=== PATIENT | female | born 1955 | race Caucasian/White ===

== ENCOUNTER 2022-01-18 11:31 | Outpatient (RCR) | payer MEDICARE, BC, SELFPAY ==
--- NOTE | 2022-01-04 19:17 | ONC.NURNOTE ---
Authorization: User: Katelyn Harris Date: 08/09/21 11:19 Type: Eligibility Determination Note... Request received request for prior authorization of Infliximab [id number]. Patient has Medicare as primary insurance. Per CMS.gov LCD L30229 no prior authorization is required for Infliximab. Services are based on medical necessity and follow Medicare guidelines.
--- NOTE | 2022-01-10 12:39 | ONC.NURNOTE ---
Brittaney called to cancel today stating she was ill and getting Covid tested. She will call and reschedule when better.
--- NOTE | 2022-01-11 16:39 | ONC.NURNOTE ---
Pt called saying she has Covid. Symptoms began 01/09/22 and tested positive yesterday 01/10/22. She began Paxlovid and called Dr. Hussein to determine when she could come in for Remicade. He says when she is feeling better. Pt would like to schedule for 01/17/22; recommended pt call back early next week to review symptoms, as she is still having a fevers to 101/chills. Pt amenable to this plan.
[2022-01-18 11:46] VITALS: BP 125/79; PULSE 63; RESP 16; TEMP 35.8; O2SAT 97
[2022-01-18] MEDS: ACETAMINOPHEN 500 MG TABLET PO (11:55)
[2022-01-18] MEDS: 0.9 % SODIUM CHLORIDE 250 ml 250 ML 35 ML IV (11:56)
[2022-01-18] MEDS: diphenhydrAMINE 25 MG CAPSULE PO (11:57)
[2022-01-18] MEDS: METHYLPREDNISOLONE SOD SUCC 40 MG/ML IVP (12:16)
--- NOTE | 2022-01-22 14:42 | ONC.NURNOTE ---
s/p covid 19 infection, now reports postive home test, symptoms Ms. Roland received remicade infusion last week in the infusion center for Crohn's disease. Today she reports that she did a home covid test due to having a scratchy throat. The home test came back positive. Previous tests this weekend were negative. She was diagnosed with active covid 19 infection on 01/10/22 and completed a course of paclovid. Ms. Roland was recommended to follow up with her PCP regarding this information to ensure she is receiving appropriate care, considering that she is in an immunocompromised state with her remicaid infusions. She is agreeable to this plan.
== END 2022-01-20 23:59 | disposition home or self-care (01) ==
LOC: CCIC 11:31
PROVIDERS: PCP Internal Medicine; Visit Provider Internal Medicine Gastroenterology
DX: K50.90 Crohn's disease, unspecified, without complications (principal)
CPT/HCPCS: 96413; 96415; A9270; J2920; J7050

== ENCOUNTER 2022-02-05 15:44 | Outpatient (CLI) | payer MEDICARE, BC, SELFPAY ==
--- OUTSIDE RECORDS SUMMARY | 2022-02-05 15:48 | XMS_ITS | Encounter Summary ---
:1955 Author Organization [facility] Address [address] [place] [address] Care Team Providers Name Role Phone Unavailable Primary Care Provider Unavailable Reason for Referral Outpatient (Routine) - Closed Specialty Diagnoses / Procedures Referred By Contact Refer red To Contact Diagnoses Psoriasis Marilu Majano M.D. [facility] Procedures DX Hand Bilateral 2 Views and Wrist Bilateral 2 Views [address] [place] [phone] Referral ID Status Reason Start Date Expiration Date Visits Requ ested Visits Authorized [id number] Closed 11/12/2021 11/12/2022 1 1 Reason for Visit Outpatient (Routine) - Closed Specialty Diagnoses / Procedures Referred By Contact Refer red To Contact Diagnoses Psoriasis Marilu Majano M.D. [facility] Procedures DX Hand Bilateral 2 Views and Wrist Bilateral 2 Views [address] [place] [phone] Referral ID Status Reason Start Date Expiration Date Visits Requ ested Visits Authorized [id number] Closed 11/12/2021 11/12/2022 1 1 Encounter Details Date Type Department Care Team Description 11/12/2021 Hospital Encounter Department of Radiology, Marilu Majano M.D. [facility], in [address] [place] [address] [address] [facility] [address] [place] [address] [phone] Social History Tobacco Use Types Packs/Day Years Used Date Smoking Tobacco: Former Alcohol Habits Answer Date Recorded How often do you have a drink containing alcohol? Monthly or less 01/09/2022 How many drinks containing alcohol do you have on a 1 or 2 01/09/2022 typical day when you are drinking? How often do you have six or more drinks on one Never 01/09/2022 occasion? Comment: Not asked Social Isolation Answer Date Recorded In a typical week, how many times do you Three times a week 01/09/2022 talk on the phone with family, friends, or neighbors? How often do you get together with friends Three times a wee k 01/09/2022 or relatives? How often do you attend zoroastrian or mandaeism Patient refused 01/09/2022 services? Do you belong to any clubs or organizations Yes 01/09/2022 such as zoroastrian groups, unions, fraternal or athletic groups, or school groups? How often do you attend meetings of the More than 4 times pe r year 01/09/2022 clubs or organizations you belong to? Are you now , , , 01/09/2022 , never or living with a partner? Physical Activity Answer Date Recorded On average, how many days per week do you engage in moderate to 4 days 01/09/2022 strenuous exercise (like walking fast, running, jogging, dancing, swimming, biking, or other activities that cause a light or heavy sweat)? On average, how many minutes do you engage in exercise at th is 60 min 01/09/2022 level? Stress Answer Date Recorded Do you feel stress - tense, restless, nervous, or To some ex tent 01/09/2022 anxious, or unable to sleep at night because your mind is troubled all the time - these days? Financial Resource Strain Answer Date Recorded How hard is it for you to pay for the very basics like Not h mercedes at all 01/09/2022 food, housing, medical care, and heating? Intimate Partner Violence Answer Date Recorded Within the last year, have you been afraid of your partner o r No 01/09/2022 ex-partner? Within the last year, have you been humiliated or emotionall y No 01/09/2022 abused in other ways by your partner or ex-partner? Within the last year, have you been kicked, hit, slapped, or No 01/09/2022 otherwise physically hurt by your partner or ex-partner? Within the last year, have you been raped or forced to have any No 01/09/2022 kind of sexual activity by your partner or ex-partner? Food Insecurity Answer Date Recorded Within the past 12 months, you worried that your food would Never true 01/09/2022 run out before you got money to buy more. Within the past 12 months, the food you bought just didn't N ever true 01/09/2022 last and you didn't have money to get more. Transportation Needs Answer Date Recorded In the past 12 months, has lack of transportation kept you f rom No 01/09/2022 medical appointments or from getting medications? In the past 12 months, has lack of transportation kept you f rom No 01/09/2022 meetings, work, or getting things needed for daily living? Housing Stability Answer Date Recorded In the last 12 months, was there a time when you were not ab le No 01/09/2022 to pay the mortgage or rent on time? In the last 12 months, how many places have you lived? 1 01/09/2022 In the last 12 months, was there a time when you did not hav e a No 01/09/[address] to [address] or slept in a senior living (including now)? Sex Assigned at Date Recorded Female 01/09/2022 4:35 PM CDT documented as of this encounter Medications at Time of Discharge Medication Sig Dispensed Refills Start Date End Date fluocinonide (LIDEX) Apply 1 application 60 g 3 2021 0.05 % topically 2 (two) ointmentIndications: times a week. Apply Psoriasis to affected areas on the weekend for maintenance treatment. triamcinolone (KENALOG) Apply 1 application 454 g 3 0.1 % creamIndications: topically 2 (two) Psoriasis times a day as needed (Rash). Apply to affected areas twice a day under wet wraps. calcipotriene (DOVONEX) Apply 1 application 129 g 3 11/27/2021 0.005 % topically 2 (two) ointmentIndications: times a week. Apply Psoriasis to the affected areas. documented as of this encounter Plan of Treatment Upcoming Encounters Date Type Specialty Care Team Description 02/08/2022 Office Visit Dermatology Marilu Majano M.D. [address] [place] [address] 02/11/2022 Clinical Communication Admitting/Central Scheduling 02/13/2022 Comprehensive Visit Gastroenterology and Rosendo Nguyen Hepatology Venkatesh Alexander [address] [place] [address] documented as of this encounter Procedures Procedure Name Priority Date/Time Associated Comments Diagnosis DX HAND BILATERAL RAD - Routine 11/12/2021 2:50 Psoriasis Result s for this 2 VIEWS AND WRIST (most inpatients PM CDT proced ure are in BILATERAL 2 VIEWS and all the result s outpatients) section. 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 Tiny ossific density along the ulnar aspect of the left 2nd DIP jake nt, likely degenerative. Narrative 11/12/2021 3:22 PM CDT EXAM: ??DX HAND BILATERAL 2 VIEWS AND WRIST BILATERAL 2 VIEWS Procedure Note Pietro Hung M.D. - 11/12/2021For matting of this note might be different from the original. EXAM: DX HAND BILATERAL 2 VIEWS AND WRIS T BILATERAL 2 VIEWS IMPRESSION: Mild scattered degenerative arthritis jennifer th hands and wrists. Tiny ossific density along the ulnar aspect of the left 2nd DIP jake nt, likely degenerative. Marilu Majano M.D. [facility] PROCE NAVIN documented in this encounter Visit Diagnoses Diagnosis Psoriasis documented in this encounter
--- OUTSIDE RECORDS SUMMARY | 2022-02-05 15:48 | XMS_ITS | Encounter Summary ---
:1955 Author Organization [facility] Address [address] [place] [address] Care Team Providers Name Role Phone Unavailable Primary Care Provider Unavailable Encounter Details Date Type Department Care Team Description 11/10/2008 Hospital Encounter HX [facility] INPT/OBSRV Kala Mast M.D. [address] [place], [place] [address] (Wo rk) Social History Tobacco Use Types Packs/Day Years Used Date Smoking Tobacco: Never Assessed Alcohol Habits Answer Date Recorded How often [...] or relatives? How often do you attend quaker or mandaeism Patient refused 01/09/2022 services? Do you belong to any clubs or organizations Yes 01/09/2022 such as quaker groups, unions, fraternal or athletic groups, or [...] PM CDT documented as of this encounter Plan of Treatment Upcoming Encounters Date Type Specialty Care Team Description 02/08/2022 Office Visit Dermatology Marilu Majano M.D. [address] [place] [address] 02/11/2022 Clinical Communication Admitting/Central Scheduling 02/13/2022 Comprehensive Visit Gastroenterology and Rosendo Nguyen Hepatology Venkatesh Alexander [address] [place] [address] documented as of this encounter Visit Diagnoses Not on filedocumented in this encounter
--- OUTSIDE RECORDS SUMMARY | 2022-02-05 15:48 | XMS_ITS | Encounter Summary ---
:1955 Author Organization [facility] Address [address] [place] [address] Care Team Providers Name Role Phone Unavailable Primary Care Provider Unavailable Encounter Details Date Type Department Care Team Description 11/19/2013 Hospital Encounter HX NO MAPPING Social History Tobacco Use Types Packs/Day Years [...] How often do you attend zoroastrian or yarsani Patient refused 01/09/2022 services? Do you belong [...] place to sleep or slept in a long-term (including now)? Sex Assigned at Date Recorded Female 01/09/2022 4:35 PM CDT documented as of this encounter Plan of Treatment Upcoming Encounters Date Type Specialty Care Team Description 02/08/2022 Office Visit Dermatology Marilu Majano M.D. [address] [place] [address] 02/11/2022 Clinical Communication Admitting/Central Scheduling 02/13/2022 Comprehensive Visit Gastroenterology and Rosendo Nguyen Hepatology Venkatesh Alexander [address] [place] [address] documented as of this encounter Visit Diagnoses Not on filedocumented in this encounter
--- OUTSIDE RECORDS SUMMARY | 2022-02-05 15:48 | XMS_ITS | Encounter Summary ---
:[address] [facility] Address [address] [place] [address] Care Team Providers Name Role Phone Unavailable Primary Care Provider Unavailable Encounter Details Date Type Department Care Team Description 01/12/2009 - Hospital Encounter HX RST BREAST Valeria Capellan M.D. 10/07/2009 [address] [place] [address] (Wo rk) Social History Tobacco Use Types [...] or relatives? How often do you attend episcopalian or anabaptism Patient refused 01/09/2022 services? Do you belong to any clubs or organizations Yes 01/09/2022 such as episcopalian groups, unions, fraternal or athletic groups, or [...] place to sleep or slept in a jail (including now)? Sex Assigned at Date Recorded Female 01/09/2022 4:35 PM CDT documented as of this encounter Plan of Treatment Upcoming Encounters Date Type Specialty Care Team Description 02/08/2022 Office Visit Dermatology Marilu Majano M.D. [address] [place] [address] 02/11/2022 Clinical Communication Admitting/Central Scheduling 02/13/2022 Comprehensive Visit Gastroenterology and Rosendo Nguyen Hepatjigna Alexander M.D. [address] [place] [address] documented as of this encounter Visit Diagnoses Not on filedocumented in this encounter
--- OUTSIDE RECORDS SUMMARY | 2022-02-05 15:48 | XMS_ITS | Encounter Summary ---
:1955 Author Organization [facility] Address [address] [place] [address] Care Team Providers Name Role Phone Unavailable Primary Care Provider Unavailable Encounter Details Date Type Department Care Team Description 04/20/2012 - 04/22/2012 Hospital Encounter HX RST KORTNEY THOMAS 9D Social History Tobacco Use Types Packs/Day Years [...] or relatives? How often do you attend lutheran or restorationist Patient refused 01/09/2022 services? Do you belong to any clubs or organizations Yes 01/09/2022 such as lutheran groups, unions, fraternal or athletic groups, or [...] place to sleep or slept in a snf (including now)? Sex Assigned at Date Recorded Female 01/09/2022 4:35 PM CDT documented as of this encounter Last Filed Vital Signs Vital Sign Reading Time Taken Comments Blood Pressure 149/83 04/22/2012 1:55 PM CDT Pulse 80 04/22/2012 1:55 PM CDT Temperature - - Respiratory Rate 16 04/22/2012 1:55 PM CDT Oxygen Saturation - - Inhaled Oxygen - - Concentration Weight 106 kg (232 lb 12.9 04/21/2012 5:00 AM Value fro m [employer]. oz) CDT Height 166 cm (5' 5.35) 04/20/2012 6:17 PM Value from [employer]. CDT Body Mass Index 38.32 04/20/2012 6:17 PM CDT documented in this encounter Plan of Treatment Upcoming Encounters Date Type Specialty Care Team Description 02/08/2022 Office Visit Dermatology Marilu Majano M.D. [address] [place] [address] 02/11/2022 Clinical Communication Admitting/Central Scheduling 02/13/2022 Comprehensive Visit Gastroenterology and Rosendo Nguyen Hepatjigna Alexander M.D. [address] [place] [address] documented as of this encounter Visit Diagnoses Not on filedocumented in this encounter
--- OUTSIDE RECORDS SUMMARY | 2022-02-05 15:48 | XMS_ITS | Encounter Summary ---
:1955 Author Organization [facility] Address [address] [place] [address] Care Team Providers Name Role Phone Unavailable Primary Care Provider Unavailable Encounter Details Date Type Department Care Team Description 02/16/2009 Hospital Encounter HX [facility] INPT/OBSRV Kala Mast M.D. [address] [place], [place] [address] (Wo rk) Social History [...] or relatives? How often do you attend congregation or episcopalian Patient refused 01/09/2022 services? Do you belong to any clubs or organizations Yes 01/09/2022 such as congregation groups, unions, fraternal or athletic groups, or [...] place to sleep or slept in a alf (including now)? Sex Assigned at Date Recorded Female 01/09/2022 4:35 PM CDT documented as of this encounter Plan of Treatment Upcoming Encounters Date Type Specialty Care Team Description 02/08/2022 Office Visit Dermatology Marilu Majano M.D. [address] [place] [address] 02/11/2022 Clinical Communication Admitting/Central Scheduling 02/13/2022 Comprehensive Visit Gastroenterology and Rosendo Nguyen Hepatology Venkatesh Alexander [address] [place] [address] documented as of this encounter Visit Diagnoses Not on filedocumented in this encounter
--- OUTSIDE RECORDS SUMMARY | 2022-02-05 15:48 | XMS_ITS | Encounter Summary ---
:1955 Author Organization [facility] Address [address] [place] [address] Care Team Providers Name Role Phone Unavailable Primary Care Provider Unavailable Encounter Details Date Type Department Care Team Description 04/17/2012 Hospital Encounter HX NO MAPPING Pedro Pablo Shepard Social History Tobacco Use Types Packs/Day Years [...] or relatives? How often do you attend cheondoism or yarsani Patient refused 01/09/2022 services? Do you belong to any clubs or organizations Yes 01/09/2022 such as cheondoism groups, unions, fraternal or athletic groups, or [...] Visit Dermatology Marilu Majano M.D. [address] [place] [address] 02/11/2022 Clinical Communication Admitting/Central Scheduling 02/13/2022 Comprehensive Visit Gastroenterology and Rosendo Nguyen Hepatology Venkatesh Alexander [address] [place] [address] documented as of this encounter Visit Diagnoses Not on filedocumented in this encounter
--- OUTSIDE RECORDS SUMMARY | 2022-02-05 15:48 | XMS_ITS | Encounter Summary ---
:1955 Author Organization [facility] Address [address] [place] [address] Care Team Providers Name Role Phone Unavailable Primary Care Provider Unavailable Reason for Referral Outpatient (Routine) - Closed Specialty Diagnoses / Procedures Referred By Contact Refer red To Contact Diagnoses Psoriasis Marilu Majano M.D. [facility] Procedures DX Foot Ankle Bilateral 3+ Views [address] [place] [phone] Referral ID Status Reason Start Date Expiration Date Visits Requ ested Visits Authorized [id number] Closed 11/12/2021 11/12/2022 1 1 Reason for Visit Outpatient (Routine) - Closed Specialty Diagnoses / Procedures Referred By Contact Refer red To Contact Diagnoses Psoriasis Marilu Majano M.D. [facility] Procedures DX Foot Ankle Bilateral 3+ Views [address] [place] [phone] Referral ID Status Reason Start Date Expiration Date Visits Requ ested Visits Authorized [id number] Closed 11/12/2021 11/12/2022 1 1 Encounter Details Date Type Department Care Team Description 11/12/2021 Hospital Encounter Department of Radiology, Marilu Majano M.D. [facility], in [address] [place] [address] [address] [facility] [address] [place] [address] [phone] Social History Tobacco Use Types Packs/Day Years [...] or relatives? How often do you attend samaritan or shinto Patient refused 01/09/2022 services? Do you belong to any clubs or organizations Yes 01/09/2022 such as samaritan groups, unions, fraternal or athletic groups, or [...] place to sleep or slept in a fpc (including now)? Sex Assigned at Date Recorded [...] Visit Dermatology Marilu Majano M.D. [address] [place] [address] 02/11/2022 Clinical Communication Admitting/Central Scheduling 02/13/2022 Comprehensive Visit Gastroenterology and Rosendo Nguyen Hepatology Venkatesh Alexander [address] [place] [address] documented as of this encounter Procedures Procedure Name Priority Date/Time Associated Comments Diagnosis DX FOOT ANKLE RAD - Routine 11/12/2021 2:49 Psoriasis Results fo r this BILATERAL 3+ (most inpatients PM CDT procedure a re in VIEWS and all the results outpatients) section. documented in this encounter Results DX Foot Ankle Bilateral 3+ Views (11/12/2021 2:49 PM CDT) Anatomical Region Laterality Modality Lower Extremity, Foot, Ankle, Musculoskeletal RST LOS, Bilat eral Digital Radiography Musculoskeletal ARZ LOS, Muskuloskeletal FLA LOS Specimen (Source) Anatomical Collection Method Collection Time Re ceived Time Location / / Volume Laterality 11/12/2021 3:20 PM CDT Impressions 11/12/2021 3:21 PM CDT Ankle mortises are intact. Mild scattered degenerative changes in both feet. Tiny bilateral accessory navicular bones. The feet and ankles are otherwise negative. Narrative 11/12/2021 3:21 PM CDT EXAM: ??DX FOOT ANKLE BILATERAL 3+ VIEWS Procedure Note Edgar Vela M.D. - 11/12/2021Forma tting of this note might be different from the original. EXAM: DX FOOT ANKLE BILATERAL 3+ VIEWS IMPRESSION: Ankle mortises are intact. Mild scattere d degenerative changes in both feet. Tiny bilateral accessory navicular bones. The feet and ankles are otherwise negative. Marilu Majano M.D. [facility] DI[facility]NO[facility] TONA HOLDEN documented in this encounter Visit Diagnoses Diagnosis Psoriasis documented in this encounter
--- OUTSIDE RECORDS SUMMARY | 2022-02-05 15:48 | XMS_ITS | Encounter Summary ---
:1955 Author Organization [facility] Address [address] [place] [address] Care Team Providers Name Role Phone Unavailable Primary Care Provider Unavailable Reason for Visit Reason Comments Pre-visit Intake Encounter Details Date Type Department Care Team Description 01/14/2022 Clinical Communication Visit Review in Pr e-visit Intake [place], [place] [address] [place], [place] [phone] Social History Tobacco Use Types Packs/Day Years [...] or relatives? How often do you attend islam or baptism Patient refused 01/09/2022 services? Do you belong to any clubs or organizations Yes 01/09/2022 such as islam groups, unions, fraternal or athletic groups, or [...] or slept in a alf (including now)? Education Answer Date Recorded What is the highest level of school Bachelor's degree (e.g., BA, AB, 01/09/2022 you have completed or the highest BS) degree you have received? Sex Assigned at Date Recorded Female 01/09/2022 4:35 PM CDT documented as of this encounter Plan of Treatment Upcoming Encounters Date Type Specialty Care Team Description 02/08/2022 Office Visit Dermatology Marilu Majano M.D. [address] [place] [address] 02/11/2022 Clinical Communication Admitting/Central Scheduling 02/13/2022 Comprehensive Visit Gastroenterology and Rosendo Nguyne Hepatjigna Alexander M.D. [address] [place] [address] documented as of this encounter Visit Diagnoses Not on filedocumented in this encounter
--- OUTSIDE RECORDS SUMMARY | 2022-02-05 15:48 | XMS_ITS | Encounter Summary ---
:1955 Author Organization [facility] Address [address] [place] [address] Care Team Providers Name Role Phone Unavailable Primary Care Provider Unavailable Encounter Details Date Type Department Care Team Description 12/02/2008 Hospital Encounter HX [facility] INPT/OBSRV Kala Mast M.D. [address] [place], [place] [address] (Wo rk) Social History [...] or relatives? How often do you attend hinduism or sikh Patient refused 01/09/2022 services? Do you belong to any clubs or organizations Yes 01/09/2022 such as hinduism groups, unions, fraternal or athletic groups, or [...] place to sleep or slept in a group home (including now)? Sex Assigned at Date Recorded Female 01/09/2022 4:35 PM CDT documented as of this encounter Plan of Treatment Upcoming Encounters Date Type Specialty Care Team Description 02/08/2022 Office Visit Dermatology Marilu Majano M.D. [address] [place] [address] 02/11/2022 Clinical Communication Admitting/Central Scheduling 02/13/2022 Comprehensive Visit Gastroenterology and Rosendo Nguyen Hepatology Venkatesh Alexander [address] [place] [address] documented as of this encounter Visit Diagnoses Not on filedocumented in this encounter
--- OUTSIDE RECORDS SUMMARY | 2022-02-05 15:48 | XMS_ITS | Encounter Summary ---
:1955 Author Organization [facility] Address [address] [place] [address] Care Team Providers Name Role Phone Unavailable Primary Care Provider Unavailable Encounter Details Date Type Department Care Team Description 03/02/2015 Historical Ophthalmology RST OPH Hood Chand M.D., Ph.D. [address] [place], [place] [phone] (Wo rk) Social History Tobacco Use Types [...] or relatives? How often do you attend sikh or judaism Patient refused 01/09/2022 services? Do you belong to any clubs or organizations Yes 01/09/2022 such as sikh groups, unions, fraternal or athletic groups, or [...] place to sleep or slept in a prison (including now)? Sex Assigned at Date Recorded Female 01/09/2022 4:35 PM CDT documented as of this encounter Progress Notes Cayetano Chand M.D., Ph.D. - 03/02/2015 7:27 AM CDT Eye General CHIEF COMPLAINT Blurred vision HISTORY OF PRESENT ILLNESS Blurred vision, things run together; both eyes; x 6 months; constantly; symptoms have made it difficult to read, watch TV and work at the computer. Pain; both eyes (right > left); x 1 month; episodically with each episode lasting approximately a couple of weeks. 59yo female referred by Dr. Mead for blurred vision and visual field defect. She has a background history of a microvascular decompression of her left trigeminal nerve due to left trigeminal neuralgia on April 20, 2012, by Dr. Stanton. She also had a previous hypoglossal stimulator inserted for trigeminal neuralgia. Since August 2014, she reports blurred vision and burning of the eyes that comes and goes. Her eyes feel tired. This is worsened by reading and computer work. also some pain behind the eyes. On February 01, 2015, she saw her three knife trimmer, Dr. Liu for evaluation of this. She was found to havea binasal visual field defect on routine eye screening and therefore referred to Neurology for further evaluation. Repeat MRI on 02/13/15 was unremarkable. Note that her sister had a history of either multiple sclerosis or lupus and also has breast cancer.She when she was 59. Mrs. Roland has been on Humira in the past and has been on infliximab since 2007. PAST MEDICAL/SURGICAL HISTORY 1. Crohn's disease diagnosed 2006; treated with Humira, Pentasa, Entocort 6-MP, and infliximab. 2. Psoriasis. 3. Obstructive sleep apnea; currently on CPAP. 4. Microvascular decompression for left trigeminal neuralgia on April 20, 2012. 5. Previous hypoglossal stimulator insertion and subsequent explantation. 6. Vitamin D deficiency. 7. Hypertension. 8. B12 deficiency. 9. Depression. IMPRESSION / REPORT / PLAN #1 questionable binasal visual field defect by report She was initially referred for a binasal visual field defect found by her local eye provider on routine screening. Unfortunately I do not have these to review. The good part is that a binasal visual field defect is not caused by a neurologic problem. It is possible that the prior visual field test was unreliable and that her mesa are full. On amsler, there was nasal loss in the right eye, normal in the left. I couldn't pick this up with confrontation visual mesa and no RAPD was noted by my tech. We will want to explore this further with a visual field test. I will also get an OCT of the nerve and retina because if there was truly a binasal defect, it would be either a retina or nerve problem. #2 dry eye and meibominan gland dysfunction This is responsible for the intermittent blurred vision and pain while reading. Recommend artificial tears PRN Addendum: 24-2 Robbins visual field: full OU Cirrus OCT: normal RNFL and GCL I suspect the prior binasal field defects were due to poor reliability and being a first time test taker. Visual mesa were completely full today. 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 [address] [place] [phone] 02/11/2022 Clinical Communication Admitting/Central Scheduling 02/13/2022 Comprehensive Visit Gastroenterology and Rosendo Nguyen Hepatjigna Alexander M.D. [address] [place] [phone] documented as of this encounter Visit Diagnoses Not on filedocumented in this encounter
--- OUTSIDE RECORDS SUMMARY | 2022-02-05 15:48 | XMS_ITS | Encounter Summary ---
:1955 Author Organization [facility] Address [address] [place] [address] Care Team Providers Name Role Phone Unavailable Primary Care Provider Unavailable Encounter Details Date Type Department Care Team Description 12/22/2008 - Hospital Encounter HX RST INFUSION Von Vasquez 10/07/2009 THERAPY G, R.N. Social History Tobacco Use Types Packs/Day Years [...] or relatives? How often do you attend uatsdin or cheondoism Patient refused 01/09/2022 services? Do you belong to any clubs or organizations Yes 01/09/2022 such as uatsdin groups, unions, fraternal or athletic groups, or [...] minutes do you engage in exercise at is 60 min 01/09/2022 level? Stress Answer [...] place to sleep or slept in a retirement (including now)? Sex Assigned at Date Recorded Female 01/09/2022 4:35 PM CDT documented as of this encounter Plan of Treatment Upcoming Encounters Date Type Specialty Care Team Description 02/08/2022 Office Visit Dermatology Marilu Majano M.D. [address] [place] [address] 02/11/2022 Clinical Communication Admitting/Central Scheduling 02/13/2022 Comprehensive Visit Gastroenterology and Rosendo Nguyen Hepatology Venkatesh Alexander [address] [place] [phone] documented as of this encounter Visit Diagnoses Not on filedocumented in this encounter
--- OUTSIDE RECORDS SUMMARY | 2022-02-05 15:48 | XMS_ITS | Encounter Summary ---
:1955 Author Organization [facility] Address [address] [place] [address] Care Team Providers Name Role Phone Unavailable Primary Care Provider Unavailable Encounter Details Date Type Department Care Team Description 11/26/2021 Orders Only Department of Dermatology in [place], [place] MElvisDElvis [address] [facility] [address] [place] [address] [place], [place] [phone] (Wo rk) Social History Tobacco Use Types [...] or relatives? How often do you attend moravian or latter day Patient refused 01/09/2022 services? Do you belong to any clubs or organizations Yes 01/09/2022 such as moravian groups, unions, fraternal or athletic groups, or [...] Visit Dermatology Marilu Majano M.D. [address] [place] [address] 02/11/2022 Clinical Communication Admitting/Central Scheduling 02/13/2022 Comprehensive Visit Gastroenterology and Rosendo Nguyen Hepatology Venkatesh Alexander [address] [place] [address] documented as of this encounter Visit Diagnoses Not on filedocumented in this encounter
--- OUTSIDE RECORDS SUMMARY | 2022-02-05 15:48 | XMS_ITS | Encounter Summary ---
:1955 Author Organization [facility] Address [address] [place] [address] Care Team Providers Name Role Phone Unavailable Primary Care Provider Unavailable Encounter Details Date Type Department Care Team Description 12/19/2008 - 12/26/2008 Hospital Encounter HX NO MAPPING Social History [...] or relatives? How often do you attend yarsani or episcopalian Patient refused 01/09/2022 services? Do you belong to any clubs or organizations Yes 01/09/2022 such as yarsani groups, unions, fraternal or athletic groups, or [...] place to sleep or slept in a detention (including now)? Sex Assigned at Date Recorded Female 01/09/2022 4:35 PM CDT documented as of this encounter Plan of Treatment Upcoming Encounters Date Type Specialty Care Team Description 02/08/2022 Office Visit Dermatology Marilu Majano M.D. [address] [place] [address] 02/11/2022 Clinical Communication Admitting/Central Scheduling 02/13/2022 Comprehensive Visit Gastroenterology and Rosendo Nguyen Hepatology Venkatesh Alexander [address] [place] [address] documented as of this encounter Visit Diagnoses Not on filedocumented in this encounter
--- OUTSIDE RECORDS SUMMARY | 2022-02-05 15:48 | XMS_ITS | Encounter Summary ---
:1955 Author Organization [facility] Address [address] [place] [address] Care Team Providers Name Role Phone Unavailable Primary Care Provider Unavailable Encounter Details Date Type Department Care Team Description 04/27/2009 Hospital Encounter HX [facility] INPT/OBSRV Irene Mahoney M.D. [address] [place] [address] (Wo rk) Social History Tobacco Use Types [...] or relatives? How often do you attend buddhist or anglican Patient refused 01/09/2022 services? Do you belong to any clubs or organizations Yes 01/09/2022 such as buddhist groups, unions, fraternal or athletic groups, or [...] place to sleep or slept in a usp (including now)? Sex Assigned at Date Recorded Female 01/09/2022 4:35 PM CDT documented as of this encounter Plan of Treatment Upcoming Encounters Date Type Specialty Care Team Description 02/08/2022 Office Visit Dermatology Marilu Majano M.D. [address] [place] [phone] 02/11/2022 Clinical Communication Admitting/Central Scheduling 02/13/2022 Comprehensive Visit Gastroenterology and Rosendo Nguyen Hepatjigna Alexander M.D. [address] [place] [address] documented as of this encounter Visit Diagnoses Not on filedocumented in this encounter
--- OUTSIDE RECORDS SUMMARY | 2022-02-05 15:48 | XMS_ITS | Encounter Summary ---
:1955 Author Organization [facility] Address [address] [place] [address] Care Team Providers Name Role Phone Unavailable Primary Care Provider Unavailable Reason for Visit Reason Comments Rx Prior Authorization DANNA DENIED - CALCIPOTRIENE 0. 005% OINTMENT Encounter Details Date Type Department Care Team Description 11/26/2021 Clinical Pharmacy Prior Car Henao Rx Prior Communication Auth [id number] Authorization (DANNA DENIED - CALCIPOTRIENE 0 .005% OINTMENT) Social History Tobacco Use Types Packs/Day Years [...] or relatives? How often do you attend orthodoxy or bahai Patient refused 01/09/2022 services? Do you belong to any clubs or organizations Yes 01/09/2022 such as orthodoxy groups, unions, fraternal or athletic groups, or [...] place to sleep or slept in a fdc (including now)? Sex Assigned at Date Recorded Female 01/09/2022 4:35 PM CDT documented as of this encounter Miscellaneous Notes Telephone Encounter - Car Henao - 11/26/2021 4:12 PM CDT Images from the original note were not included. The patient's health insurer has denied prior authorization for CALCIPOTRIENE 0.005% OINTMENT. A quick view of the denial reason is in this communication message. To view the denial letter: 1. Go to Snapshot 2. Go to the purple Medications box 3. Click on the blue Prior Authorizations link 4. Under Denied, click on the blue medication link to open and view the attachment. As the prescriber your options are: ??? Appeal the decision to the insurer directly (see denial letter for how to appeal). ??? Write a new Rx for an alternative medication therapy. ??? Release the Rx to the pharmacy so the patient can pay out of pocket if they desire. To Release Rx: Open this encounter, go to Meds & Orders, click on the medication, and click the blue ???Release Rx?? button. PLEASE NOTE: If the ???Release Rx?? button is not visible, the Rx has already been released to the pharmacy. If you have questions, please reply via QuickNote to Meagan MENDOZA. Thank you, The OPPA Team documented in this encounter Plan of Treatment Upcoming Encounters Date Type Specialty Care Team Description 02/08/2022 Office Visit Dermatology Marilu Majano M.D. [address] [place] [address] 02/11/2022 Clinical Communication Admitting/Central Scheduling 02/13/2022 Comprehensive Visit Gastroenterology and Rosendo Nguyen Hepatology Venkatesh Alexander [address] [place] [phone] documented as of this encounter Visit Diagnoses Not on filedocumented in this encounter
--- OUTSIDE RECORDS SUMMARY | 2022-02-05 15:48 | XMS_ITS | Encounter Summary ---
:1955 Author Organization [facility] Address [address] [place] [address] Care Team Providers Name Role Phone Unavailable Primary Care Provider Unavailable Reason for Referral Outpatient (Routine) - Closed Specialty Diagnoses / Procedures Referred By Contact Refer red To Contact Dermatology Diagnoses Psoriasis Hansa Doty M.D. [facility] [address] [place] [address] Referral ID Status Reason Start Date Expiration Date Visits Requ ested Visits Authorized [id number] Closed 11/07/2021 11/07/2022 1 1 Encounter Details Date Type Department Care Team Description 11/07/2021 [facility] Hansa Doty Psoriasis (Primary AND CLINICS Venkatesh Pena Dx) 1999 [facility] [address] [place] [address] [phone] Social History Tobacco Use Types Packs/Day Years [...] How often do you attend buddhist or moravian Patient refused 01/09/2022 services? Do you belong [...] Visit Dermatology Marilu Majano M.D. [address] [place] [address] 02/11/2022 Clinical Communication Admitting/Central Scheduling 02/13/2022 Comprehensive Visit Gastroenterology and Rosendo Nguyen Hepatology Venkatesh Alexander [address] [place] [address] Scheduled Referrals Name Type Priority Associated Order Schedule Diagnoses Dermatology Referral Outpatient Referral Routine Psoriasis Expected: 11/07/2021 (Approximate), Expires: 02/07/2023 documented as of this encounter Visit Diagnoses Diagnosis Psoriasis - Primary documented in this encounter
--- OUTSIDE RECORDS SUMMARY | 2022-02-05 15:48 | XMS_ITS | Encounter Summary ---
:1955 Author Organization [facility] Address [address] [place] [address] Care Team Providers Name Role Phone Unavailable Primary Care Provider Unavailable Encounter Details Date Type Department Care Team Description 03/14/2009 Hospital Encounter HX [facility] INPT/OBSRV Kala Mast M.D. [address] [place] [address] (Wo rk) Social History [...] or relatives? How often do you attend restoration or church Patient refused 01/09/2022 services? Do you belong to any clubs or organizations Yes 01/09/2022 such as restoration groups, unions, fraternal or athletic groups, or [...] Visit Dermatology Marilu Majano M.D. [address] [place] [address] 02/11/2022 Clinical Communication Admitting/Central Scheduling 02/13/2022 Comprehensive Visit Gastroenterology and Rosendo Nguyen Hepatology Venkatesh Alexander [address] [place] [address] documented as of this encounter Visit Diagnoses Not on filedocumented in this encounter
--- OUTSIDE RECORDS SUMMARY | 2022-02-05 15:48 | XMS_ITS | Clinical Summary ---
:1955 Author Organization [facility] Address [address] [place] [address] Care Team Providers Name Role Phone Unavailable Primary Care Provider Unavailable Source Comments Patient records contain information from all sites at [facility]. For routine questions regarding patient records, call [phone] during business hours, M-F 8:00 AM - 5:00 PM Central Time. Record requests for emergency care only can be directed to [phone] at any time.[facility] Medications Medication Sig Dispensed Refills Start Date End Date Status triamcinolone Apply 1 application 454 g 3 11/12/2021 Active (KENALOG) 0.1 % topically 2 (two) creamIndications: times a day as Psoriasis needed (Rash). Apply to affected areas twice a day under wet wraps. fluocinonide (LIDEX) Apply 1 application 60 g 3 2 Active 0.05 % topically 2 (two) ointmentIndications: times a week. Apply Psoriasis to affected areas on the weekend for maintenance treatment. calcipotriene Apply 1 application 120 g 3 11/27/2021 Active (DOVONEX) 0.005 % topically 2 (two) ointmentIndications: times a day. Apply Psoriasis Vulgaris, to the affected Psoriasis Guttate areas. Active Problems Problem Noted Date Crohn's Disease 02/29/2016 Encounters Date Type Specialty Care Team Description 01/14/2022 Clinical Admitting/Central Pre-visit Intake Communication Scheduling 11/27/2021 Orders Only Dermatology Marilu Majano, Psoriasis Vul garis (Primary Dx); Benjamin.Jocelyne Psoriasis Octavio te; Psoriasis 11/26/2021 Clinical Pharmacy Car Henao Rx Prior Communication Authorization ([place] DENIED - CALCIPOTRIENE 0 .005% OINTMENT) 11/26/2021 Orders Only Pharmacy Car Henao 11/26/2021 Orders Only Dermatology Janice Gonzalez M.D. 11/16/2021 Orders Only Pharmacy Yadi Rowe 11/14/2021 Orders Only Pharmacy Melinda Ramírez 11/12/2021 Hospital Encounter Radiology Marilu Majano Psorias is Venkatesh 11/12/2021 Hospital Encounter Radiology Marilu Majano Psorias is MRanjan 11/12/2021 Comprehensive Visit Dermatology Marilu Majano Psoria sis (Primary Dx); M.DElvis Dermatitis Psor iasiform; Dermatitis Aste atotic Xerotic; Pain In Joint 11/12/2021 Ancillary Procedure 11/07/2021 Community Orders Soren, Psoriasis ( Primary Hansa Pena, Dx) Venkatesh from Last 3 Months Immunizations Name Administration Dates Next Due Influenza Split 03/23/2014, 03/23/2012, 04/01/2007 Tdap 01/22/2012 Social History Tobacco Use Types Packs/Day Years [...] or relatives? How often do you attend evangelical or jain Patient refused 01/09/2022 services? Do you belong to any clubs or organizations Yes 01/09/2022 such as evangelical groups, unions, fraternal or athletic groups, or [...] place to sleep or slept in a skilled nursing (including now)? Education Answer Date Recorded What is the highest level of school Bachelor's degree (e.g., BA, AB, 01/09/2022 you have completed or the highest BS) degree you have received? Sex Assigned at Date Recorded Female 01/09/2022 4:35 PM CDT Last Filed Vital Signs Vital Sign Reading Time Taken Comments Blood Pressure 131/69 02/29/2016 9:18 AM CDT Pulse 72 02/29/2016 9:18 AM CDT Temperature - - Respiratory Rate 19 02/13/2015 9:34 AM Vital sig n result CDT from Clinical No diane. Oxygen Saturation - - Inhaled Oxygen - - Concentration Weight 100 kg (220 lb 7.4 02/29/2016 9:18 AM oz) CDT Height 166 cm (5' 5.35) 02/29/2016 9:18 AM CDT Body Mass Index 36.29 02/29/2016 9:18 AM CDT Plan of Treatment Upcoming Encounters Date Type Specialty Care Team Description 02/08/2022 Office Visit Dermatology Marilu Majano M.D. [address] [place] [phone] 02/11/2022 Clinical Communication Admitting/Central Scheduling 02/13/2022 Comprehensive Visit Gastroenterology and Rosendo Nguyen Hepatology Venkatesh Alexander [address] [place] [phone] Health Maintenance Due Date Last Done Comments Bone Density Scan 1955 (Osteoporosis Screen) CT Colonography 1955 Cologuard 1955 Hepatitis C Screening 1955 Zoster Vaccines (1 of 2) 04/20/2015 02/23/2015 Mammogram 03/23/2016 03/23/2015 (Performed elsewhere), 03/04/2014, 01/14/2013, Additional history exists Colonoscopy 11/19/2018 11/19/2013, 11/19/2013, 01/21/2005 (Performed elsewhere) Colorectal Cancer 11/19/2018 Surveillance Creatinine Level 08/26/2020 08/27/2019, 09/03/2018, 11/19/2012, Additional history exists Potassium Level 08/26/2020 08/27/2019, 09/03/2018, 04/17/2012 Sodium Level 08/26/2020 08/27/2019, 09/03/2018, 04/17/2012 Depression Screening 06/23/2021 (Annual PHQ-2) Fall Risk Screen (Annual) 06/23/2021 COVID-19 Vaccine (5 - 11/20/2021 07/23/2021, 07/23/2021, Booster for Moderna series) 02/19/2021, Addition al history exists DTaP,Tdap,and Td Vaccines 01/21/2022 01/22/2012, 12/17/2011 , (3 - Td or Tdap) 12/06/2004 Influenza Vaccine (#1) 2022 04/11/2021, 04/11/2021, 04/04/2020, Additional history exists Fasting Glucose for 08/26/2022 08/27/2019, 09/03/2018 Diabetes Screening Pneumococcal vaccine (65+ Completed 12/21/2020, 04/04/2020 years) HPV Vaccines Aged Out No longer eligib le based on patient 's age to complete this topic Medical Devices Implanted Type Area Binder Folder Operator Device Shelf Model / Identifier Expiration Date Ser ial / Lot [place]-Mesh [id number].6mm(Gold) - Muñiz [id number] Str yker Implanted: Qty: 1 on 04/20/2012 pins/screws/r ods Description: Device Binder Folder Operator - Stryk er Florina.. Device Status Text - [id number]. Hammond Richard Fuzzy 1 X 1 - Muñiz 1667 Mesh or Patch DeRoyal In [employer] Implanted: Qty: 1 on 04/20/2012 Description: Device Binder Folder Operator - DeRoy al. Device Status Text - [id number]. [facility] Data - [id number]. Procedures Procedure Name Priority Date/Time Associated Comments Diagnosis DX HAND BILATERAL 2 RAD - Routine 11/12/2021 2:50 Psoriasis Resu lts for this VIEWS AND WRIST (most inpatients PM CDT procedur e are in BILATERAL 2 VIEWS and all the result s outpatients) section. DX FOOT ANKLE RAD - Routine 11/12/2021 2:49 Psoriasis Results fo r this BILATERAL 3+ VIEWS (most inpatients PM CDT proce dure are in and all the results outpatients) section. DERMATOLOGY IMAGE Routine 11/12/2021 12:00 Result s for this EXAM AM CDT procedure are i n the results section. from Last 3 Months Results DX Hand Bilateral 2 Views and [...] jake nt, likely degenerative. Marilu Majano M.D. IMTong DIAGNOSTIC IMAGING PROCE DURES DX Foot Ankle Bilateral 3+ Views (11/12/2021 [...] negative. Marilu Majano M.D. IMG DIAGNOSTIC IMAGING PROCE NAVIN Entire Body-Dermatology Image Exam (11/12/2021 12:00 AM CDT) Specimen (Source) Anatomical Location Collection Method / Collectio n Time Received Time / Laterality Volume Narrative IIMS - 11/12/2021 4:14 PM CDT This order has been created and auto-finalized to support the import of images acquired without order. The clini moose documentation to support these images can be found on the encounter luanne t produced images. Provider Not In System IMG NON RAD IMAGING PROCEDUR ES Performing Organization Address City/State/ZIP Code Phon e Number IIMS IIMS NA from Last 3 Months Insurance Payer Benefit Plan Subscriber ID Effective Phone Address Typ e / Group Dates MEDICARE MEDICARE A [id number] 2019-Prese [address] [place] [address] [facility] [id number] 2019-Prese [phone] [address] [place] [address] [id number] [place] [address] Guarantor Name Account Type Relation to Date of Phone Billing Address Patient Brittaney Roland Personal/Famil Self 1955 [phone] [address] [facility] Lucia Anguiano RN y (Home) TANESHA Bender [phone] (Work)
--- OUTSIDE RECORDS SUMMARY | 2022-02-05 15:48 | XMS_ITS | Encounter Summary ---
:1955 Author Organization [facility] Address [address] [place] [address] Care Team Providers Name Role Phone Unavailable Primary Care Provider Unavailable Encounter Details Date Type Department Care Team Description 11/02/2008 Hospital Encounter HX [facility] INPT/OBSRV Kala Mast M.D. [address] [place], [place] [address] (Wo rk) Social History [...] or relatives? How often do you attend orthodox or bahai Patient refused 01/09/2022 services? Do you belong to any clubs or organizations Yes 01/09/2022 such as orthodox groups, unions, fraternal or athletic groups, or [...] place to sleep or slept in a fci (including now)? Sex Assigned at Date Recorded Female 01/09/2022 4:35 PM CDT documented as of this encounter Plan of Treatment Upcoming Encounters Date Type Specialty Care Team Description 02/08/2022 Office Visit Dermatology Marilu Majano M.D. [address] [place] [address] 02/11/2022 Clinical Communication Admitting/Central Scheduling 02/13/2022 Comprehensive Visit Gastroenterology and Rosendo Nguyen Hepatology Venkatesh Alexander [address] [place] [address] documented as of this encounter Visit Diagnoses Not on filedocumented in this encounter
--- OUTSIDE RECORDS SUMMARY | 2022-02-05 15:48 | XMS_ITS | Encounter Summary ---
:1955 Author Organization [facility] Address [address] [place] [address] Care Team Providers Name Role Phone Unavailable Primary Care Provider Unavailable Encounter Details Date Type Department Care Team Description 02/02/2009 Hospital Encounter HX [facility] INPT/OBSRV Kala Mast M.D. [address] [place], [place] [address] (Wo rk) Social History [...] or relatives? How often do you attend oriental orthodox or nondenominational Patient refused 01/09/2022 services? Do you belong to any clubs or organizations Yes 01/09/2022 such as oriental orthodox groups, unions, fraternal or athletic groups, [...] Visit Dermatology Marilu Majano M.D. [address] [place] [address] 02/11/2022 Clinical Communication Admitting/Central Scheduling 02/13/2022 Comprehensive Visit Gastroenterology and Rosendo Nguyen Hepatology Venkatesh Alexander [address] [place] [address] documented as of this encounter Visit Diagnoses Not on filedocumented in this encounter
--- OUTSIDE RECORDS SUMMARY | 2022-02-05 15:48 | XMS_ITS | Encounter Summary ---
:1955 Author Organization [facility] Address [address] [place] [address] Care Team Providers Name Role Phone Unavailable Primary Care Provider Unavailable Encounter Details Date Type Department Care Team Description 09/30/2008 - Hospital Encounter HX [facility]ST INFUSION Rose Barraza, 10/07/2008 THERAPY C.N.P[facility] Social History Tobacco Use Types Packs/Day Years [...] or relatives? How often do you attend pentecostalism or tenriism Patient refused 01/09/2022 services? Do you belong to any clubs or organizations Yes 01/09/2022 such as pentecostalism groups, unions, fraternal or athletic groups, or [...] place to sleep or slept in a [facility] (including now)? Sex Assigned at Date Recorded Female 01/09/2022 4:35 PM CDT documented as of this encounter Plan of Treatment Upcoming Encounters Date Type Specialty Care Team Description 02/08/2022 Office Visit Dermatology Marilu Majano M.D. [address] [place] [address] 02/11/2022 Clinical Communication Admitting/Central Scheduling 02/13/2022 Comprehensive Visit Gastroenterology and Rosendo Nguyen Hepatology Venkatesh Alexander [address] [place] [phone] documented as of this encounter Visit Diagnoses Not on filedocumented in this encounter
--- OUTSIDE RECORDS SUMMARY | 2022-02-05 15:48 | XMS_ITS | Encounter Summary ---
:1955 Author Organization [facility] Address [address] [place] [address] Care Team Providers Name Role Phone Unavailable Primary Care Provider Unavailable Encounter Details Date Type Department Care Team Description 04/14/2009 Hospital Encounter HX [facility] Rich Doyle, INPT/OBSRV M.DElvis [address] [address] (Wo rk) Social History Tobacco Use Types [...] or relatives? How often do you attend baptist or worship Patient refused 01/09/2022 services? Do you belong to any clubs or organizations Yes 01/09/2022 such as baptist groups, unions, fraternal or athletic groups, or [...] place to sleep or slept in a [facility] (including now)? Sex Assigned at Date Recorded Female 01/09/2022 4:35 PM CDT documented as of this encounter Plan of Treatment Upcoming Encounters Date Type Specialty Care Team Description 02/08/2022 Office Visit Dermatology Marilu Majano M.D. [address] [place] [address] 02/11/2022 Clinical Communication Admitting/Central Scheduling 02/13/2022 Comprehensive Visit Gastroenterology and Rosendo Ngueyn Hepatology Venkatesh Alexander [address] [place] [address] documented as of this encounter Visit Diagnoses Not on filedocumented in this encounter
--- OUTSIDE RECORDS SUMMARY | 2022-02-05 15:48 | XMS_ITS | Encounter Summary ---
:1955 Author Organization [facility] Address [address] [place] [address] Care Team Providers Name Role Phone Unavailable Primary Care Provider Unavailable Encounter Details Date Type Department Care Team Description 03/09/2009 - Hospital Encounter HX RST BREAST Valeria Capellan M.D. 10/07/2009 [address] [place] [address] (Wo rk) Social History Tobacco Use Types [...] or relatives? How often do you attend denominational or jehovah's witness Patient refused 01/09/2022 services? Do you belong to any clubs or organizations Yes 01/09/2022 such as denominational groups, unions, fraternal or athletic groups, or [...] Office Visit Dermatology Marilu Majano M.D. [address] [place] [address] 02/11/2022 Clinical Communication Admitting/Central Scheduling 02/13/2022 Comprehensive Visit Gastroenterology and Rosendo Nguyen Hepatjigna Alexander M.D. [address] [place] [phone] documented as of this encounter Procedures Procedure Name Priority Date/Time Associated Comments Diagnosis CT UROGRAM WITH IV Routine 07/13/2009 11:33 Resul ts for this CONTRAST WITH 3D AM MULTIPLE PRESSURE RIVETER OPERATOR procedure a re in DEPENDENT WORKSTATION the re sults section. BI ULTRASOUND EXAM Routine 03/09/2009 1:24 PM Res ults for this CDT procedure are i n the results section. documented in this encounter Results CT Urogram with IV Contrast with 3D Dependent Workstation (07/13/2009 11:33 AM MULTIPLE PRESSURE RIVETER OPERATOR) Anatomical Region Laterality Modality Abdomen, Pelvis Computed Tomography Specimen (Source) Anatomical Collection Method Collection Time Re ceived Time Location / / Volume Laterality 07/13/2009 11:33 AM MULTIPLE PRESSURE RIVETER OPERATOR Narrative 07/13/2009 11:54 AM MULTIPLE PRESSURE RIVETER OPERATOR 13-Jul-2009 11:33:00 ??Exam: CT Urogram w 3D Indications: urogram- hydronephrosis,;co nt per rad ORIGINAL REPORT - 13-Jul-2009 11:54:00 CT urogram (CT abdomen and pelvis withou t and with IV contrast including 3D reconstructions performed on an independent workstation) and KUB done in separate ExU suite. Comparison to CT enterography 12/22/2008. Tiny nonobstructing calyceal stone in th e right upper pole is unchanged. The kidneys, ureters, and bladder are otherwise normal. ??Modreate post void residual. Stable wall thickening in the approximat monique 30 cm segment of distal ileum including terminal ileum, consistent with patient's known Crohn's disease. Fatty change of the duodenum is also stable. Right denise ng base nodular opacity seen previously has resolved. Bilateral tubal ligation. Diffuse fatty infiltration in the liver. Splenic granuoloma. Small splenule. Mild degenerative changes of the spine. Ind: 810.560 ?? Dia.519 ?? Electronically signed by: ?? [place] [id number] 13-Jul-2009 11:54 ?Jose Kumar MD [phone] 13-Jul-2009 11:54 Procedure Note Jose Kumar M.D. - 09/21/2017Forma tting of this note might be different from the original. 13-Jul-2009 11:33:00 Exam: CT Urogram w 3D Indications: urogram- hydronephrosis,;co nt per rad ORIGINAL REPORT - 13-Jul-2009 11:54:00 CT urogram (CT abdomen and pelvis withou t and with IV contrast including 3D reconstructions performed on an independent workstation) and KUB done in separate ExU suite. Comparison to CT enterography 12/22/2008. Tiny nonobstructing calyceal stone in th e right upper pole is unchanged. The kidneys, ureters, and bladder are otherwise normal. Modreate post void residual. Stable wall thickening in the approximat monique 30 cm segment of distal ileum including terminal ileum, consistent with patient's known Crohn's disease. Fatty change of the duodenum is also stable. Right lung base nodular opacity seen previously has resolved. Bi lateral tubal ligation. Diffuse fatty infiltration in the liver. Splenic granuoloma. Small splenule. Mild degenerative changes of the spine. Ind: 810.560 Dia.519 Electronically signed by: [place] [id number] 13-Jul-2009 11:54 Jose Kumar MD [id number] 13-Jul-2009 11:54 Gali Porter M.D. IMTong CT PROCEDURES BI Ultrasound Exam (03/09/2009 1:24 PM CDT) Anatomical Region Laterality Modality Breast N/A Ultrasound Specimen (Source) Anatomical Collection Method Collection Time Re ceived Time Location / / Volume Laterality 03/09/2009 1:24 PM CDT Narrative 03/09/2009 2:13 PM CDT 09-Mar-2009 13:24:00 ??Exam: L MG /Ultrasound Exam Indications: ?? ORIGINAL REPORT - 09-Mar-2009 14:13:00 Left diagnostic ultrasound. ?? FINDINGS: Ultrasound of the left breast at approximately 11 to 3 o'clock demonstrates normal breast parenchyma. No focal sonographic abnormality to suggest cancer to correspond with the patient's palpable abnormality. ?? RECOMMENDATION: Follow-up mammogram of b oth breasts in August 2009 to re- establish annual mammographic surveillance. ?? Assessment: Benign. ??P5.1,U11,L2D Electronically signed by: ?? Jocelyne Sanchez ?? 09-Mar-2009 14:13 Procedure Note Bradley Sanchez M.D. - 09/21/2017For matting of this note might be different from the original. 09-Mar-2009 13:24:00 Exam: L MG /Ultraso und Exam Indications: ORIGINAL REPORT - 09-Mar-2009 14:13:00 Left diagnostic ultrasound. FINDINGS: Ultrasound of the left breast at approximately 11 to 3 o'clock demonstrates normal breast parenchyma. No focal sonographic abnormality to suggest cancer to correspond with the patient's palpable abnormality. RECOMMENDATION: Follow-up mammogram of b oth breasts in August 2009 to re- establish annual mammographic surveillance. Assessment: Benign. P5.1,U11,L2D Electronically signed by: Jocelyne Sanchez MD 09-Mar-2009 14:13 Roger VEGAS BI PROCEDURES documented in this encounter Visit Diagnoses Not on filedocumented in this encounter
--- OUTSIDE RECORDS SUMMARY | 2022-02-05 15:48 | XMS_ITS | Encounter Summary ---
:1955 Author Organization [facility] Address [address] [place] [address] Care Team Providers Name Role Phone Unavailable Primary Care Provider Unavailable Encounter Details Date Type Department Care Team Description 11/14/2021 Orders Only Pharmacy Prior Auth Melinda Lauren [phone] Social History Tobacco Use Types Packs/Day Years [...] How often do you attend orthodox or orthodoxy Patient refused 01/09/2022 services? Do you belong [...] Visit Dermatology Marilu Majano M.D. [address] [place] [phone] 02/11/2022 Clinical Communication Admitting/Central Scheduling 02/13/2022 Comprehensive Visit Gastroenterology and Rosendo Nguyen Hepatology Venkatesh Alexander [address] [place] [phone] documented as of this encounter Visit Diagnoses Not on filedocumented in this encounter
--- OUTSIDE RECORDS SUMMARY | 2022-02-05 15:48 | XMS_ITS | Encounter Summary ---
:1955 Author Organization [facility] Address [address] [place] [address] Care Team Providers Name Role Phone Unavailable Primary Care Provider Unavailable Reason for Referral Outpatient (Routine) - Authorized Specialty Diagnoses / Procedures Referred By Contact Refer red To Contact Dermatology Diagnoses Psoriasis Marilu Majano M.D. [facility] [address] [place] [address] Referral ID Status Reason Start Date Expiration Date Visits V isits Requested Authorized [id number] Authorized 11/12/2021 11/12/2022 1 1 Scheduling Instructions Psoriasis follow up utpatient (Routine) - Closed Specialty Diagnoses / Procedures Referred By Contact Refer red To Contact Diagnoses Psoriasis Marilu Majano M.D. [facility] Procedures DX Hand Bilateral 2 Views and Wrist Bilateral 2 Views [address] [place], [place] [address] Referral ID Status Reason Start Date Expiration Date Visits Requ ested Visits Authorized [id number] Closed 11/12/2021 11/12/2022 1 1 utpatient (Routine) - Closed Specialty Diagnoses / Procedures Referred By Contact Refer red To Contact Diagnoses Psoriasis Marilu Majano M.D. [facility] Procedures DX Foot Ankle Bilateral 3+ Views [address] [place], [place] [address] Referral ID Status Reason Start Date Expiration Date Visits Requ ested Visits Authorized [id number] Closed 11/12/2021 11/12/2022 1 1 Reason for Visit Outpatient (Routine) - Closed Specialty Diagnoses / Procedures Referred By Contact Refer red To Contact Dermatology Diagnoses Psoriasis Hansa Doty M.D. [address] [address] Referral ID Status Reason Start Date Expiration Date Visits Requ ested Visits Authorized [id number] Closed 11/07/2021 11/07/2022 1 1 Encounter Details Date Type Department Care Team Description 11/12/2021 Comprehensive Visit Department of Marilu Majano Psori asis (Primary Dx); Dermatology in Venkatesh Dermatitis Psoriasiform; [place], [place] [address] [facility] Dermatitis Asteatotic Xerotic; [address] [place], [place] [phone] Social History Tobacco Use Types Packs/Day Years [...] or relatives? How often do you attend jainism or advent Patient refused 01/09/2022 services? Do you belong to any clubs or organizations Yes 01/09/2022 such as jainism groups, unions, fraternal or athletic groups, or [...] PM CDT documented as of this encounter Patient Instructions Patient InstructionsJanice Gonzalez M.D. - 11/12/2021 1:50 PM CDT Topical treatment -For 2 weeks, use triamcinolone 0.1% cream twice a day with wet wraps. Moisturize after removing wetwraps with Vanicream. -After 2 weeks, use wet wraps over triamcinolone 0.1% once a day in the morning and use Lidex ointment once a day in the evening for 1 week. -Then, use Lidex ointment only twice a day for another week -After completing above, for maintenance treatment, apply Dovonex twice a day Friday thru Friday, and on weekends use either triamcinolone or Lidex once a day -Moisturize twice a day with Vanicream -Repeat the wet wraps with steroids during flares -Follow up in 3 months We recommend discussing with GI whether Stelara may be helpful, but defer to GI on this decision. Please obtain your Xrays today. documented in this encounter Consult Notes Janice Gonzalez M.D. - 11/12/2021 1:00 PM CDT Correspondence to Hansa Underwood M.D. [address] [place] [phone] CHIEF COMPLAINT / REASON FOR VISIT Psoriasis HISTORY OF PRESENT ILLNESS Ms. Brittaney Anguiano TRACI Roland is a 66 y.o. female who presents today for the above. She was last seen in Dermatology at [facility] in 2012. She reports she has had a skin biopsy at outside institution, butnot sure what it showed. She has not had biopsies at [facility]. She also has a history of Crohn's diseasefor which she has been on Remicade since 2007. She is currently using it every 5 weeks. She finds the Remicade has been helpful for her skin as well but she is now having a flare for the last 4 months.She reports she has not had Strep infection, but has had UTI. She has not started new medications like metoprolol or other beta-blockers. She has been under some increased stress due to COVID. For her skin, she is currently using Vanicream and Vaniply daily. She also has been triamcinolone and hydrocortisone creams off and on, but not on a schedule. In the past, she has also had Dovonex and also beenon phototherapy prior to starting Remicade. In the past, for her Crohn's, she was on prednisone, Entocort, 6-MP, Enbrel, Humira, and now on Remicade since 2007. She also endorses joint pain in her wrists and ankles. She also reports she has joint pain in the knuckles and ankles. The ankles may be related to her activity with playing pickleball but she finds that there is also morning stiffness. She has not seen rheumatology yet. Family history: Her mother and sister also have psoriasis and inflammatory bladder disease. PHYSICAL EXAM General: Awake, alert, in no acute distress, with appropriate affect. Skin: Examination of the scalp, face, neck, chest, abdomen, back, bilateral upper extremities, bilateral lower extremities and buttocks, sparing the genitalia, performed and revealed: - Garcia type II - Over the posterior thighs, hips, trunk, and anterior feet, there is circular, erythematous, silver-scaly plaques; over the remainder of the bilateral extremities, there is diffuse river-bed pattern erythematous, scaly patches. There is no involvement of the scalp, face, gluteal cleft, or skin folds.Over the breast, there are small 5 mm circular, erythematous, scaly plaques. 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 She is on Remicade due to her history of Crohn's disease, which previously has well- controlled her skin as well. However, she is currently having a flare without a known trigger. There is also superimposed asteatotic dermatitis as well. We discussed initiating a regular topical treatment plan with moisturization, and we alsodiscussed doing light therapy locally as well if refractory. She will be meeting with GI at [facility] after several years in December 2021, and we recommend discussing with them whether Stelara may be helpful, but defer to GI on this. Plan -For 2 weeks, use triamcinolone 0.1% cream twice a day with wet wraps. Moisturize after removing wetwraps with Vanicream. -After 2 weeks, use wet wraps over triamcinolone 0.1% once a day in the morning and use Lidex ointment once a day in the evening for 1 week. -Then, use Lidex ointment only twice a day for another week -After completing above, for maintenance treatment, apply Dovonex ointment twice a day Friday thru Friday, and on weekends use either triamcinolone or Lidex once a day -Moisturize twice a day with Vanicream with all above regimens -Repeat the wet wraps with steroids during flares -Wet wraps were discussed with the patient with Dr. Majano and nursing team -Follow up in 3 months #3 Polyarticular small joint pain (ankles/feet and hands/wrists) We will plan for X-ray and if signs of inflammatory arthritis, will refer to rheumatology. Supervised by: Dr. Melecio Gonzalez MD PGY2 Dermatology Associated attestation - Marilu Majano M.D. - 11/13/2021 9:57 AM CDT I saw and evaluated the patient, participating in the hickman portions of the service. I reviewed resident's note, and I agree with the findings and plan. The patient is having a flare of her psoriasis with plaques on the feet, thighs, and a few guttate papules on the abdomen. She also has evidence of asteatotic dermatitis affecting the lower legs as well. Since she has not tried topicals to control this flare, we recommended optimizing topicals as a first line treatment, as outlined below. We also discussed light therapy as an adjunct, but she preferred to stick with just topicals to start with, which I think is reasonable. We can add light therapy if needed. Ideally, topicals will be helpful in calming this down and she can continue Remicade. If topicals and/or light therapy are not enough to control the flare, we could consider switching from Remicade to another biologic such as Stelara approved for both Crohn's and psoriasis, though I would want to get our GI doctors' opinions on this prior to making the switch, since Remicade has overall worked for her and continues to control her GI disease well. Therefore, we will start topicals for now and f/u after she sees GI in December to determine next steps. documented in this encounter Plan of Treatment Upcoming Encounters Date Type Specialty Care Team Description 02/08/2022 Office Visit Dermatology Marilu Majano M.D. [address] [place] [address] 02/11/2022 Clinical Communication Admitting/Central Scheduling 02/13/2022 Comprehensive Visit Gastroenterology and Rosendo Nguyen Hepatology Venkatesh Alexander [address] [place] [address] Scheduled Referrals Name Type Priority Associated Order Schedule Diagnoses Dermatology office Outpatient Referral Routine Psoriasis Ex pected: visit (clinic) 12/13/2021 (Approximate), Expires: 02/12/2023 documented as of this encounter Results DX Hand Bilateral 2 [...] 2nd DIP jake nt, likely degenerative. Marilu VEGAS DIAGNOSTIC IMAGING PROCE DURES DX Foot Ankle [...] feet and ankles are otherwise negative. Marilu [facility] DIAGNOSTIC IMAGING PROCE DURTHADDEUS documented in this encounter Visit Diagnoses Diagnosis Psoriasis - Primary Dermatitis Psoriasiform Dermatitis Asteatotic Xerotic Pain In Joint Psoriasis Psoriasis documented in this encounter
--- OUTSIDE RECORDS SUMMARY | 2022-02-05 15:48 | XMS_ITS | Encounter Summary ---
:1955 Author Organization [facility] Address [address] [place] [address] Care Team Providers Name Role Phone Unavailable Primary Care Provider Unavailable Encounter Details Date Type Department Care Team Description 03/31/[address] [facility] INPT/OBSRV Kala Mast M.D. [address] [place], [place] [address] (Wo rk) Social History [...] or relatives? How often do you attend jewish or restoration Patient refused 01/09/2022 services? Do you belong to any clubs or organizations Yes 01/09/2022 such as jewish groups, unions, fraternal or athletic groups, or [...] place to sleep or slept in a [facility] (including now)? Sex Assigned at Date Recorded Female 01/09/2022 4:35 PM CDT documented as of this encounter Plan of Treatment Upcoming Encounters Date Type Specialty Care Team Description 02/08/2022 Office Visit Dermatology Marilu Majano M.D. [address] [place] [address] 02/11/2022 Clinical Communication Admitting/Central Scheduling 02/13/2022 Comprehensive Visit Gastroenterology and Rosendo Nguyen Hepatology Venkatesh Alexander [address] [place] [address] documented as of this encounter Visit Diagnoses Not on filedocumented in this encounter
--- OUTSIDE RECORDS SUMMARY | 2022-02-05 15:48 | XMS_ITS | Encounter Summary ---
:1955 Author Organization [facility] Address [address] [place] [address] Care Team Providers Name Role Phone Unavailable Primary Care Provider Unavailable Encounter Details Date Type Department Care Team Description 11/27/2021 Orders Only Department of Melecio, Marilu Ellis, Psoriasis Vu lgaris (Primary Dx); Dermatology in M.D. Psoriasis Guttate; [place], [place] [address] [facility] Psoriasis [address] [place] [phone] [phone] Social History Tobacco Use Types Packs/Day Years [...] How often do you attend orthodoxy or jew Patient refused 01/09/2022 services? Do you belong [...] to sleep or slept in a senior care (including now)? Sex Assigned at Date Recorded Female 01/09/2022 4:35 PM CDT documented as of this encounter Plan of Treatment Upcoming Encounters Date Type Specialty Care Team Description 02/08/2022 Office Visit Dermatology Marilu Majano M.D. [address] [place] [address] 02/11/2022 Clinical Communication Admitting/Central Scheduling 02/13/2022 Comprehensive Visit Gastroenterology and Rosendo Nguyen Hepatology [facility]kates[facility] [address] [place] [address] documented as of this encounter Visit Diagnoses Diagnosis Psoriasis Vulgaris - Primary Psoriasis Guttate Psoriasis documented in this encounter
--- OUTSIDE RECORDS SUMMARY | 2022-02-05 15:48 | XMS_ITS | Encounter Summary ---
:1955 Author Organization [facility] Address [address] [place] [address] Care Team Providers Name Role Phone Unavailable Primary Care Provider Unavailable Encounter Details Date Type Department Care Team Description 11/12/2021 Ancillary Procedure Department of Dermatology Social History Tobacco Use Types Packs/Day Years [...] or relatives? How often do you attend judaism or adventist Patient refused 01/09/2022 services? Do you belong to any clubs or organizations Yes 01/09/2022 such as judaism groups, unions, fraternal or athletic groups, or [...] place to sleep or slept in a halfway (including now)? Sex Assigned at Date Recorded Female 01/09/2022 4:35 PM CDT documented as of this encounter Plan of Treatment Upcoming Encounters Date Type Specialty Care Team Description 02/08/2022 Office Visit Dermatology Marilu Majano M.D. [address] [place] [address] 02/11/2022 Clinical Communication Admitting/Central Scheduling 02/13/2022 Comprehensive Visit Gastroenterology and Rosendo Nguyen Hepatology Venkatesh Alexander [address] [place] [address] documented as of this encounter Procedures Procedure Name Priority Date/Time Associated Comments Diagnosis DERMATOLOGY IMAGE Routine 11/12/2021 12:00 Result s for this EXAM AM CDT procedure are i n the results section. documented in this encounter Results Entire Body-Dermatology Image Exam (11/12/2021 12:00 AM [...] Code Phon e Number IIMS IIMS NA documented in this encounter Visit Diagnoses Not on filedocumented in this encounter
--- OUTSIDE RECORDS SUMMARY | 2022-02-05 15:48 | XMS_ITS | Encounter Summary ---
:1955 Author Organization [facility] Address [address] [place] [address] Care Team Providers Name Role Phone Unavailable Primary Care Provider Unavailable Encounter Details Date Type Department Care Team Description 01/06/2009 Hospital Encounter HX NO MAPPING Social History [...] or relatives? How often do you attend taoism or congregation Patient refused 01/09/2022 services? Do you belong to any clubs or organizations Yes 01/09/2022 such as taoism groups, unions, fraternal or athletic groups, or [...] place to sleep or slept in a custodial (including now)? Sex Assigned at Date Recorded Female 01/09/2022 4:35 PM CDT documented as of this encounter Plan of Treatment Upcoming Encounters Date Type Specialty Care Team Description 02/08/2022 Office Visit Dermatology Marilu Majano M.D. [address] [place] [address] 02/11/2022 Clinical Communication Admitting/Central Scheduling 02/13/2022 Comprehensive Visit Gastroenterology and Rosendo Nguyen Hepatology Venkatesh Alexander [address] [place] [address] documented as of this encounter Visit Diagnoses Not on filedocumented in this encounter
--- OUTSIDE RECORDS SUMMARY | 2022-02-05 15:48 | XMS_ITS | Encounter Summary ---
:1955 Author Organization [facility] Address [address] [place] [address] Care Team Providers Name Role Phone Unavailable Primary Care Provider Unavailable Encounter Details Date Type Department Care Team Description 12/08/2008 Hospital Encounter [facility] INPT/OBSRV Kala Mast M.D. [address] [place], [place] [address] (Wo rk) Social History [...] or relatives? How often do you attend yazdanism or restorationism Patient refused 01/09/2022 services? Do you belong to any clubs or organizations Yes 01/09/2022 such as yazdanism groups, unions, fraternal or athletic groups, or [...] place to sleep or slept in a nursing home (including now)? Sex Assigned at Date Recorded Female 01/09/2022 4:35 PM CDT documented as of this encounter Plan of Treatment Upcoming Encounters Date Type Specialty Care Team Description 02/08/2022 Office Visit Dermatology Marilu Majano M.D. [address] [place] [address] 02/11/2022 Clinical Communication Admitting/Central Scheduling 02/13/2022 Comprehensive Visit Gastroenterology and Rosendo Nguyen Hepatology Venkatesh Alexander [address] [place] [address] documented as of this encounter Visit Diagnoses Not on filedocumented in this encounter
--- OUTSIDE RECORDS SUMMARY | 2022-02-05 15:48 | XMS_ITS | Encounter Summary ---
:1955 Author Organization [facility] Address [address] [place] [address] Care Team Providers Name Role Phone Unavailable Primary Care Provider Unavailable Encounter Details Date Type Department Care Team Description 11/26/2021 Orders Only Pharmacy Prior Auth [facility] [phone] Social History Tobacco Use Types Packs/Day Years [...] or relatives? How often do you attend mandaen or holiness Patient refused 01/09/2022 services? Do you belong to any clubs or organizations Yes 01/09/2022 such as mandaen groups, unions, fraternal or athletic groups, or [...] Visit Dermatology Marilu Majano M.D. [address] [place] [address] 02/11/2022 Clinical Communication Admitting/Central Scheduling 02/13/2022 Comprehensive Visit Gastroenterology and Rosendo Nguyen Hepatology Venkatesh Alexander [address] [place] [address] documented as of this encounter Visit Diagnoses Not on filedocumented in this encounter
--- OUTSIDE RECORDS SUMMARY | 2022-02-05 15:48 | XMS_ITS | Encounter Summary ---
:1955 Author Organization [facility] Address [address] [place] [address] Care Team Providers Name Role Phone Unavailable Primary Care Provider Unavailable Encounter Details Date Type Department Care Team Description 08/24/2009 Telemedicine Department of Plastic and Reconstructive Surgery Social History Tobacco Use Types Packs/Day Years [...] How often do you attend sikh or yazdanism Patient refused 01/09/2022 services? Do you belong [...] Visit Dermatology Marilu Majano M.D. 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 documented in this encounter Results PLASTIC AND RECON SURGERY IMAGE EXAM (08/24/2009 4:35 AM MARKETING ROTATION ASSOCIATE) Specimen (Source) Anatomical Location Collection Method / Collectio n Time Received Time / Laterality Volume Narrative IIMS - 01/29/2017 4:20 AM CDT This order has been created and [...]
--- OUTSIDE RECORDS SUMMARY | 2022-02-05 15:48 | XMS_ITS | Encounter Summary ---
:1955 Author Organization [facility] Address [address] [place] [address] Care Team Providers Name Role Phone Unavailable Primary Care Provider Unavailable Encounter Details Date Type Department Care Team Description 11/16/2021 Orders Only Pharmacy Prior Auth Yadi Barbour [phone] Social History Tobacco Use Types Packs/Day Years [...] How often do you attend taoism or latter-day Patient refused 01/09/2022 services? Do you belong [...] Visit Dermatology Marilu Majano M.D. [address] [place] [phone] 02/11/2022 Clinical Communication Admitting/Central Scheduling 02/13/2022 Comprehensive Visit Gastroenterology and Rosendo Nguyen Hepatology Venkatesh Alexander [address] [place] [phone] documented as of this encounter Visit Diagnoses Not on filedocumented in this encounter
--- OUTSIDE RECORDS SUMMARY | 2022-02-05 15:49 | XMS_ITS | Encounter Summary ---
:1955 Author Organization [facility] Address [address] [place] [address] Care Team Providers Name Role Phone Unavailable Primary Care Provider Unavailable Encounter Details Date Type Department Care Team Description 09/03/2007 Hospital Encounter HX NO MAPPING Social History [...] or relatives? How often do you attend yazidism or scientology Patient refused 01/09/2022 services? Do you belong to any clubs or organizations Yes 01/09/2022 such as yazidism groups, unions, fraternal or athletic groups, or [...] place to sleep or slept in a half-way (including now)? Sex Assigned at Date Recorded Female 01/09/2022 4:35 PM CDT documented as of this encounter Plan of Treatment Upcoming Encounters Date Type Specialty Care Team Description 02/08/2022 Office Visit Dermatology Marilu Majano M.D. [address] [place] [address] 02/11/2022 Clinical Communication Admitting/Central Scheduling 02/13/2022 Comprehensive Visit Gastroenterology and Rosendo Nguyen Hepatology Venkatesh Alexander [address] [place] [address] documented as of this encounter Visit Diagnoses Not on filedocumented in this encounter
--- OUTSIDE RECORDS SUMMARY | 2022-02-05 15:49 | XMS_ITS | Encounter Summary ---
:1955 Author Organization [facility] Address [address] [place] [address] Care Team Providers Name Role Phone Unavailable Primary Care Provider Unavailable Encounter Details Date Type Department Care Team Description 04/29/2008 Hospital Encounter [facility] INPT/OBSRV Kala Mast M.D. [address] [place], [place] [address] (Wo rk) Social History [...] or relatives? How often do you attend worship or buddhist Patient refused 01/09/2022 services? Do you belong to any clubs or organizations Yes 01/09/2022 such as worship groups, unions, fraternal or athletic groups, or [...] place to sleep or slept in a correction (including now)? Sex Assigned at Date Recorded Female 01/09/2022 4:35 PM CDT documented as of this encounter Plan of Treatment Upcoming Encounters Date Type Specialty Care Team Description 02/08/2022 Office Visit Dermatology Marilu Majano M.D. [address] [place] [address] 02/11/2022 Clinical Communication Admitting/Central Scheduling 02/13/2022 Comprehensive Visit Gastroenterology and Rosendo Nguyen Hepatology Venkatesh Alexander [address] [place] [address] documented as of this encounter Visit Diagnoses Not on filedocumented in this encounter
--- OUTSIDE RECORDS SUMMARY | 2022-02-05 15:49 | XMS_ITS | Encounter Summary ---
:1955 Author Organization [facility] Address [address] [place] [address] Care Team Providers Name Role Phone Unavailable Primary Care Provider Unavailable Encounter Details Date Type Department Care Team Description 08/25/2008 Hospital Encounter [facility] INPT/OBSRV Kala Mast M.D. [address] [place], [place] [address] (Wo rk) Social History [...] How often do you attend mandaen or anabaptist Patient refused 01/09/2022 services? Do you belong [...] Majano M.D. [address] [place] [address] 02/11/2022 Clinical Communication Admitting/Central Scheduling 02/13/2022 Comprehensive Visit Gastroenterology and Rosendo Nguyen Hepatology Venkatesh Alexander [address] [place] [address] documented as of this encounter Visit Diagnoses Not on filedocumented in this encounter
--- OUTSIDE RECORDS SUMMARY | 2022-02-05 15:49 | XMS_ITS | Encounter Summary ---
:1955 Author Organization [facility] Address [address] [place] [address] Care Team Providers Name Role Phone Unavailable Primary Care Provider Unavailable Encounter Details Date Type Department Care Team Description 09/30/2008 - 10/07/2008 Hospital Encounter HX NO MAPPING Social History [...] or relatives? How often do you attend mormonism or sabianism Patient refused 01/09/2022 services? Do you belong to any clubs or organizations Yes 01/09/2022 such as mormonism groups, unions, fraternal or athletic groups, or [...] Visit Dermatology Marilu Majano M.D. [address] [place] [address] 02/11/2022 Clinical Communication Admitting/Central Scheduling 02/13/2022 Comprehensive Visit Gastroenterology and Rosendo Nguyen Hepatology Venkatesh Alexander [address] [place] [address] documented as of this encounter Visit Diagnoses Not on filedocumented in this encounter
--- OUTSIDE RECORDS SUMMARY | 2022-02-05 15:49 | XMS_ITS | Encounter Summary ---
:1955 Author Organization [facility] Address [address] [place] [address] Care Team Providers Name Role Phone Unavailable Primary Care Provider Unavailable Encounter Details Date Type Department Care Team Description 05/16/2008 Hospital Encounter [facility] INPT/OBSRV Irene Mahoney M.D. [address] [place] [address] (Wo rk) Social History Tobacco Use Types [...] or relatives? How often do you attend holiness or mandaen Patient refused 01/09/2022 services? Do you belong to any clubs or organizations Yes 01/09/2022 such as holiness groups, unions, fraternal or athletic groups, or [...] Office Visit Dermatology Marilu Majano M.D. [address] [place] [address] 02/11/2022 Clinical Communication Admitting/Central Scheduling 02/13/2022 Comprehensive Visit Gastroenterology and Rosendo Nguyen Hepatjigna Alexander M.D. [address] [place] [address] documented as of this encounter Visit Diagnoses Not on filedocumented in this encounter
--- OUTSIDE RECORDS SUMMARY | 2022-02-05 15:49 | XMS_ITS | Encounter Summary ---
:1955 Author Organization [facility] Address [address] [place] [address] Care Team Providers Name Role Phone Unavailable Primary Care Provider Unavailable Encounter Details Date Type Department Care Team Description 06/09/2008 Hospital Encounter [facility] INPT/OBSRV Kala Mast M.D. [address] [place], [place] [address] (Wo rk) Social History [...] How often do you attend zoroastrian or yazidi Patient refused 01/09/2022 services? Do you belong [...] Visit Dermatology Marilu Majano M.D. [address] [place] [address] 02/11/2022 Clinical Communication Admitting/Central Scheduling 02/13/2022 Comprehensive Visit Gastroenterology and Rosendo Nguyen Hepatology Venkatesh Alexander [address] [place] [address] documented as of this encounter Visit Diagnoses Not on filedocumented in this encounter
--- OUTSIDE RECORDS SUMMARY | 2022-02-05 15:49 | XMS_ITS | Encounter Summary ---
:1955 Author Organization [facility] Address [address] [place] [address] Care Team Providers Name Role Phone Unavailable Primary Care Provider Unavailable Encounter Details Date Type Department Care Team Description 05/16/2008 Hospital Encounter [facility]X [facility] INPT/OBSRV Kala Mast M.D. [address] [place], [place] [address] (Wo rk) Social History [...] or relatives? How often do you attend protestant or zoroastrian Patient refused 01/09/2022 services? Do you belong to any clubs or organizations Yes 01/09/2022 such as protestant groups, unions, fraternal or athletic groups, or [...] Visit Dermatology Marilu Majano M.D. [address] [place] [address] 02/11/2022 Clinical Communication Admitting/Central Scheduling 02/13/2022 Comprehensive Visit Gastroenterology and Rosendo Nguyen Hepatology Venkatesh Alexander [address] [place] [address] documented as of this encounter Visit Diagnoses Not on filedocumented in this encounter
--- OUTSIDE RECORDS SUMMARY | 2022-02-05 15:49 | XMS_ITS | Encounter Summary ---
:1955 Author Organization [facility] Address [address] [place] [address] Care Team Providers Name Role Phone Unavailable Primary Care Provider Unavailable Encounter Details Date Type Department Care Team Description 06/30/2008 Hospital Encounter [facility] INPT/OBSRV Kala Mast M.D. [address] [place], [place] [address] (Wo rk) Social History [...] or relatives? How often do you attend scientology or mu-ism Patient refused 01/09/2022 services? Do you belong to any clubs or organizations Yes 01/09/2022 such as scientology groups, unions, fraternal or athletic groups, or [...] for the very basics like Not h mercdees at all 01/09/2022 food, housing, medical care, [...] Visit Dermatology Marilu Majano M.D. [address] [place] [address] 02/11/2022 Clinical Communication Admitting/Central Scheduling 02/13/2022 Comprehensive Visit Gastroenterology and Rosendo Nguyen Hepatology Venkatesh Alexander [address] [place] [address] documented as of this encounter Visit Diagnoses Not on filedocumented in this encounter
--- OUTSIDE RECORDS SUMMARY | 2022-02-05 15:49 | XMS_ITS | Encounter Summary ---
:1955 Author Organization [facility] Address [address] [place] [address] Care Team Providers Name Role Phone Unavailable Primary Care Provider Unavailable Encounter Details Date Type Department Care Team Description 08/25/2008 Hospital Encounter [facility] INPT/OBSRV Kala Mast M.D. [address] [place], [place] [address] (Wo rk) Social History [...] or relatives? How often do you attend zoroastrianism or taoist Patient refused 01/09/2022 services? Do you belong to any clubs or organizations Yes 01/09/2022 such as zoroastrianism groups, unions, fraternal or athletic groups, or [...] place to sleep or slept in a intermediate (including now)? Sex Assigned at Date Recorded Female 01/09/2022 4:35 PM CDT documented as of this encounter Plan of Treatment Upcoming Encounters Date Type Specialty Care Team Description 02/08/2022 Office Visit Dermatology Marilu Majano M.D. [address] [place] [address] 02/11/2022 Clinical Communication Admitting/Central Scheduling 02/13/2022 Comprehensive Visit Gastroenterology and Rosendo Nguyen Hepatology Venkatesh Alexander [address] [place] [address] documented as of this encounter Visit Diagnoses Not on filedocumented in this encounter
--- OUTSIDE RECORDS SUMMARY | 2022-02-05 15:49 | XMS_ITS | Encounter Summary ---
:1955 Author Organization [facility] Address [address] [place] [address] Care Team Providers Name Role Phone Unavailable Primary Care Provider Unavailable Encounter Details Date Type Department Care Team Description 04/01/2008 Hospital Encounter [facility] INPT/OBSRV Kala Mast M.D. [address] [place], [place] [address] (Wo rk) Social History [...] or relatives? How often do you attend nondenominational or spiritism Patient refused 01/09/2022 services? Do you belong to any clubs or organizations Yes 01/09/2022 such as nondenominational groups, unions, fraternal or athletic groups, or [...] Visit Dermatology Marilu Majano M.D. [address] [place] [address] 02/11/2022 Clinical Communication Admitting/Central Scheduling 02/13/2022 Comprehensive Visit Gastroenterology and Rosendo Nguyen Hepatology Venkatesh Alexander [address] [place] [address] documented as of this encounter Visit Diagnoses Not on filedocumented in this encounter
--- OUTSIDE RECORDS SUMMARY | 2022-02-05 15:49 | XMS_ITS | Encounter Summary ---
:1955 Author Organization [facility] Address [address] [place] [address] Care Team Providers Name Role Phone Unavailable Primary Care Provider Unavailable Encounter Details Date Type Department Care Team Description 06/02/2008 Hospital Encounter [facility] INPT/OBSRV Kala Mast M.D. [address] [place], [place] [address] (Wo rk) Social History [...] How often do you attend evangelical or uatsdin Patient refused 01/09/2022 services? Do you belong [...] place to sleep or slept in a chcf (including now)? Sex Assigned at Date Recorded Female 01/09/2022 4:35 PM CDT documented as of this encounter Plan of Treatment Upcoming Encounters Date Type Specialty Care Team Description 02/08/2022 Office Visit Dermatology Marilu Majano M.D. [address] [place] [address] 02/11/2022 Clinical Communication Admitting/Central Scheduling 02/13/2022 Comprehensive Visit Gastroenterology and Rosendo Nguyen Hepatology Venkatesh Alexander [address] [place] [address] documented as of this encounter Visit Diagnoses Not on filedocumented in this encounter
--- OUTSIDE RECORDS SUMMARY | 2022-02-05 15:49 | XMS_ITS | Encounter Summary ---
:1955 Author Organization [facility] Address [address] [place] [address] Care Team Providers Name Role Phone Unavailable Primary Care Provider Unavailable Encounter Details Date Type Department Care Team Description 05/20/2008 Hospital Encounter [facility] INPT/OBSRV Kala Mast M.D. [address] [place], [place] [address] (Wo rk) Social History [...] or relatives? How often do you attend amish or temple Patient refused 01/09/2022 services? Do you belong to any clubs or organizations Yes 01/09/2022 such as amish groups, unions, fraternal or athletic groups, or [...] Visit Dermatology Marilu Majano M.D. [address] [place] [address] 02/11/2022 Clinical Communication Admitting/Central Scheduling 02/13/2022 Comprehensive Visit Gastroenterology and Rosedno Nguyen Hepatology Venkatesh Alexander [address] [place] [address] documented as of this encounter Visit Diagnoses Not on filedocumented in this encounter
--- OUTSIDE RECORDS SUMMARY | 2022-02-05 15:49 | XMS_ITS | Encounter Summary ---
:1955 Author Organization [facility] Address [address] [place] [address] Care Team Providers Name Role Phone Unavailable Primary Care Provider Unavailable Encounter Details Date Type Department Care Team Description 09/30/2008 Hospital Encounter HX NO MAPPING Alan Simeon Phar m.D., R.Ph. [address] [place], [place] [phone] (Wo rk) Social History Tobacco Use Types [...] How often do you attend zoroastrian or bahai Patient refused 01/09/2022 services? Do [...] Visit Dermatology Marilu Majano M.D. [address] [place] [address] 02/11/2022 Clinical Communication Admitting/Central Scheduling 02/13/2022 Comprehensive Visit Gastroenterology and Rosendo Nguyen Hepatology Venkatesh Alexander [address] [place] [address] documented as of this encounter Visit Diagnoses Not on filedocumented in this encounter
--- OUTSIDE RECORDS SUMMARY | 2022-02-05 15:49 | XMS_ITS | Encounter Summary ---
:1955 Author Organization [facility] Address [address] [place] [address] Care Team Providers Name Role Phone Unavailable Primary Care Provider Unavailable Encounter Details Date Type Department Care Team Description 07/13/2008 Hospital Encounter HX [facility] INPT/OBSRV Kala Mast M.D. [address] [place], [place] [address] (Wo rk) Social History [...] or relatives? How often do you attend caodaism or confucianist Patient refused 01/09/2022 services? Do you belong to any clubs or organizations Yes 01/09/2022 such as caodaism groups, unions, fraternal or athletic groups, or [...] Care Team Description 02/08/2022 Office Visit Dermatology Marliu Majano M.D. [address] [place] [address] 02/11/2022 Clinical Communication Admitting/Central Scheduling 02/13/2022 Comprehensive Visit Gastroenterology and Rosendo Nguyen Hepatology Venkatesh Alexander [address] [place] [address] documented as of this encounter Visit Diagnoses Not on filedocumented in this encounter
== END 2022-02-05 15:45 | disposition home or self-care (01) ==
PROVIDERS: PCP Internal Medicine; Visit Provider Obstetrics & Gynecology
DX: N39.46 Mixed incontinence (principal); N39.0 Urinary tract infection, site not specified; N95.0 Postmenopausal bleeding
CPT/HCPCS: 87086

== ENCOUNTER 2022-02-21 09:06 | Outpatient (CLI) | payer MEDICARE, BC, SELFPAY ==
--- NOTE | 2022-02-21 09:15 | CRLHL7_ITS ---
For Patients: As a result of the Century Cures Act, medical imaging exams and procedure reports are released immediately into your electronic medical record. You may view this report before your referring provider. If you have questions, please contact your health care provider. INDICATION: Postmenopausal bleeding pressure TECHNIQUE: Ultrasound pelvis transvaginal for better assessment or to better visualize the endometrium. Real-time sonographic images with color Doppler imaging of the ovaries were obtained. COMPARISON: None. FINDINGS: Uterus: 4.3 x 3.9 x 2.9 cm. Normal echotexture of the myometrium. Hypoechoic structure in the left mid posterior uterine body measuring 1.1 x 0.9 x 0.6 cm. Endometrium: Transvaginal imaging was performed to better evaluate the endometrium. Endometrium is heterogeneous and measures 6 mm. Difficult to visualize. Right ovary measures 1.9 x 0.9 x 0.7 cm and left ovary measures 2.0 x 1.0 x 2.1 cm. No ovarian or adnexal masses. Normal arterial and venous blood flow is demonstrated in both ovaries. Cul-de-sac: No significant free fluid. IMPRESSION: 1. Technically challenging exam. 2. Endometrium is heterogeneous and mildly thickened for age measuring 6 mm. 3. 11 mm hypodense region in the left mid uterine posterior body, nonspecific but most likely small fibroid. Dictated by Bradley Hackett MD @ 02/21/2022 10:40:18 AM (Electronically Signed)
--- OUTSIDE RECORDS SUMMARY | 2022-02-21 09:16 | XMS_ITS | Clinical Summary ---
:1955 Author Organization [employer] [facility] [email or web address] [facility] [place] [address] Care Team Providers Name Role Phone Hansa Doty MD Primary Care Provider Allergies Active Allergy Reactions Severity Noted Date Comments Codeine *Unknown 09/18/2016 Hydrochlorothiazide Rash 09/18/2016 Adalimumab Rash 09/18/2016 Medications Medication Sig Dispensed Refills Start Date End Date Status aspirin (ASPIRIN EC) Take 1 tablet by 0 09/18/2016 Active 81 mg enteric coated mouth once daily tabletIndications: with a meal. Crohn's disease of small intestine without complication (HC), Diarrhea, unspecified type, Periumbilical abdominal pain Phenol (CASTELLANI Apply topically to 0 09/18/2016 Active PAINT) 1.5 % affected area(s). liqdIndications: Crohn's disease of small intestine without complication (HC), Diarrhea, unspecified type, Periumbilical abdominal pain Prednicarbate Apply topically to 0 09/18/2016 Active (DERMATOP) 0.1 % affected area(s) 2 topical times daily. creamIndications: Crohn's disease of small intestine without complication (HC), Diarrhea, unspecified type, Periumbilical abdominal pain calcipotriene 0.005% Apply topically to 0 09/18/2016 Active (DOVONEX) 0.005 % affected area(s) 2 creamIndications: times daily. Crohn's disease of small intestine without complication (HC), Diarrhea, unspecified type, Periumbilical abdominal pain furosemide (LASIX) 20 Take 1 tablet by 0 09/18/2016 Active mg tabletIndications: mouth every Crohn's disease of morning. small intestine without complication (HC), Diarrhea, unspecified type, Periumbilical abdominal pain lisinopril (PRINIVIL; Take 1 tablet by 0 09/18/2016 Active ZESTRIL) 40 mg mouth once daily. tabletIndications: Crohn's disease of small intestine without complication (HC), Diarrhea, unspecified type, Periumbilical abdominal pain omega-3 acid ethyl Take 2 capsules by 0 09/18/2016 Active esters (LOVAZA) 1 mouth 2 times gram daily. capsuleIndications: Crohn's disease of small intestine without complication (HC), Diarrhea, unspecified type, Periumbilical abdominal pain melatonin 5 mg Take 1 capsule by 0 09/18/2016 Active capsuleIndications: mouth. Crohn's disease of small intestine without complication (HC), Diarrhea, unspecified type, Periumbilical abdominal pain omeprazole (PRILOSEC) Take 1 capsule by 0 09/18/2016 Active 40 mg Delayed-Release mouth once daily. capsuleIndications: Crohn's disease of small intestine without complication (HC), Diarrhea, unspecified type, Periumbilical abdominal pain Prednicarbate Apply topically to 0 09/18/2016 Active (DERMATOP) 0.1 % affected area(s) 2 topical times daily. creamIndications: Crohn's disease of small intestine without complication (HC), Diarrhea, unspecified type, Periumbilical abdominal pain inFLIXimab (REMICADE) Inject intravenous 0 7 Active 100 mg one time for 1 injectionIndications: dose. Crohn's disease of small intestine without complication (HC), Diarrhea, unspecified type, Periumbilical abdominal pain simvastatin (ZOCOR) Take 1 tablet by 0 09/18/2016 Active 40 mg mouth at bedtime. tabletIndications: Crohn's disease of small intestine without complication (HC), Diarrhea, unspecified type, Periumbilical abdominal pain triamcinolone Apply topically to 1 Tube 0 09/18/2016 Active (ARISTOCORT; KENALOG) affected area(s) 3 0.1 % times daily. creamIndications: Crohn's disease of small intestine without complication (HC), Diarrhea, unspecified type, Periumbilical abdominal pain acetaminophen Take 1 tablet by 0 09/18/2016 Active (TYLENOL EXTRA mouth every 6 hours STRGTH) 500 mg if needed. Max tabletIndications: acetaminophen dose: Crohn's disease of 4000mg in 24 hrs. small intestine without complication (HC), Diarrhea, unspecified type, Periumbilical abdominal pain cyanocobalamin Take 1 tablet by 0 09/18/2016 Active (VITAMIN B-12) 1,000 mouth once daily. mcg tabletIndications: Crohn's disease of small intestine without complication (HC), Diarrhea, unspecified type, Periumbilical abdominal pain Gbqj-Kxxwwfhvo-Pixrxa Apply topically to 0 7 Active xy-Aldiox (ZEASORB) affected area(s). powdIndications: Crohn's disease of small intestine without complication (HC), Diarrhea, unspecified type, Periumbilical abdominal pain sertraline (ZOLOFT) Take 1 tablet by 0 09/18/2016 Active 100 mg mouth once daily. tabletIndications: Crohn's disease of small intestine without complication (HC), Diarrhea, unspecified type, Periumbilical abdominal pain sertraline (ZOLOFT) Take 1 tablet by 0 09/18/2016 Active 50 mg mouth once daily. tabletIndications: Crohn's disease of small intestine without complication (HC), Diarrhea, unspecified type, Periumbilical abdominal pain triamcinolone Apply topically to 80 g 5 05/20/2017 Active (ARISTOCORT; KENALOG) affected area(s) 3 0.1 % times daily. creamIndications: Psoriasis cholecalciferol Daily 0 Acti ve (VITAMIN D3) 5,000 unit capsule oxybutynin XL Take 1 Tablet (5 30 Tablet 11 06/25/2021 Active (DITROPAN XL) 5 mg CR mg) by mouth once tabletIndications: daily. Urinary incontinence, unspecified type Active Problems Problem Noted Date Crohn's disease of small intestine without complicatio n 09/18/2016 Diarrhea 09/18/2016 Encounters Date Type Specialty Care Team Description 01/11/2022 Telephone Marquis Hussein Questi ons (Remicade) 12/06/2021 Telephone Marquis Hussein Medica tion Management 12/05/2021 Office Visit Marquis Hussein, Follow Up (Possible flare, vomited, severe abdominal pain (started W last week), infusion postponed due to illness) 12/05/2021 Travel 12/03/2021 Telephone Marquis Hussein Questi ons (regarding MD possible flare up) from Last 3 Months Social History Tobacco Use Types Packs/Day Years Used Date Former Smoker Smokeless Tobacco: Never Used Tobacco Cessation: Counseling Given: Yes Alcohol Use Standard Drinks/Week Comments Yes 0 (1 standard drink = 0.6 oz pure alcoho l) occassional Alcohol Habits Answer Date Recorded How often do you have a drink containing alcohol? Not asked How many drinks containing alcohol do you have on a typical Not asked day when you are drinking? How often do you have six or more drinks on one occasion? 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 Oxygen Saturation 96% 12/05/2021 1:46 PM CDT Inhaled Oxygen Concentration - - Weight 99.2 kg (218 lb 9.6 oz) 12/05/2021 1:46 PM CDT Height 166.4 cm (5' 5.51) 09/18/2016 3:20 PM CDT Body Mass Index 35.81 09/18/2016 3:20 PM CDT Plan of Treatment Health Maintenance Due Date Last Done Comments Tdap 1965 Depression screening for age 12+ 1966 Hepatitis C screening for age 0410/18/1972 18-79 Zoster (shingles) series for age 0410/18/1973 50+ (1 of 2) Tetanus booster 1974 Lipids for age 45-75 10/19/1999 Mammogram for age 45-75 03/04/2015 03/04/2014 BMI (ht and wt on same day) for 09/18/2017 09/18/2016 age 18+ DEXA/DXA scan for age 65+ 10/19/2019 Medicare Wellness for age 65+ 10/19/2019 Pneumococcal series for age 65+ (1 10/19/2019 - PCV) COVID-19 vaccine series ( - 11/20/2021 07/23/2021, 021, Booster for Moderna series) 09/07/2020, Addition al history exists Influenza for age 65+ 02/21/2022 Colonoscopy through age 75 11/20/2023 11/19/2013 Results Not on filefrom Last 3 Months Insurance Payer Benefit Plan / Subscriber ID Effective Dates Phone Addre ss Type Group MEDICARE - PB MEDICARE PB [id number] 2019-Presen ATTN : CLAIMS USE ONLY ONLY t [address] [place] [address] [employer] OF [id number] 2019-Presen [address] [place] [address] (Home) TANESHA SEVILLA [phone] Care Teams 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
--- OUTSIDE RECORDS SUMMARY | 2022-02-21 09:16 | XMS_ITS | Continuity of Care Document ---
:1955 Author Organization [facility] Address [address] [address] [place] [address] Phone Care Team Providers Name Role Phone Unavailable Unavailable Unavailable Allergies, Adverse Reactions, Alerts Substance Reaction Status Criticality No Known allergies Medications Medication Instructions Dosage Effective Dates Status Comment s (start - stop) Oracea 40 mg 24 hr Cap Take one tablet by - Ac tive mouth daily Entocort EC 3 mg 24 hr 2 caps a day for 2 - Ac tive Cap weeks, then 1 cap daily for 2 weeks, then stop Humira Pen 40 mg/0.8 mL 1 injection SQ every - Active SubQ Kit other week Pepcid unknown as needed - Active Diovan unknownCAPSULE Take one tablet by - Act reta mouth daily 240mg Lasix 20 mg Tab Take one tablet by - Active mouth daily ANTIOXIDANT SUPPLEMENT every day Vitamin - Act reta Benadryl Allergy 25 mg Take one tablet by - Activ e Tab mouth daily Procedures Procedure Date Offic/outpt E&m Estab Low-mod Offic/outpt E&m Estab Mod-hi 2 Routine Serum Collection Routine Serum Collection Offic/outpt E&m Estab Mod-hi 2 Routine Serum Collection Offic/outpt E&m Estab Low-mod Colonoscopy Flex; Dx (sep Pro) Offic/outpt E m Estab Low Ugi Endo; W/bx 1/mx Advance Directives Directive Yes / No Effective Date File Name No Information Encounters Encounter Practice Location Reason(s) Diagnoses Date Provider Provide rs Description For Visit Copied on Encounter TANESHACAMI Reis No Information May- No [facility] [address] [address], [place], [place], [id number], [place] tel:[phone] Offic/outpt [facility] [place] Crohn's Ileitis Apr- No Refe rring E&m [facility] 6 Information Provider : [facility] DANNA, [address] [place] [address], [place], [address], [place], [facility] [id number], [address], [place], [place], tel:[phone]. [id number] tel:[phone] KANDY Lewisa No Information No [facility] [address] [facility], [address] [address], [place], [place], [id number], [place] tel:[phone] Offic/outpt [facility] [place] Crohn's Ileitis Apr-0 No Refe rring E&m [facility] Information Provider : [facility] DANNA, [address] [place] [address], [place], [address], [place], [facility] [id number], [address], [place], [place], tel:[phone]. [id number] tel:[phone] [facility] [place] Crohn's Ileitis Feb-2 No [facility] g [facility] [address] Information Provider: Health DANNA, [address] [place] [address], [place], [address], [place], [facility] [id number], [address], [place], [place], tel:[phone]. [id number] tel:[phone] [facility] [place] Crohn's Ileitis Sep-1 No [facility] [address] Information Provider: Health DANNA, [address] [place] [address], [place], [address], [place], [facility] [id number], [address], [place], [place], tel:[phone] [id number] tel:[phone] Offic/outpt [facility] [place] Crohn's Ileitis No Refe rring E&m [facility] [address] Information Provider : [facility] DANNA, [address] [place] [address], [place], [address] [place] [address], [place], [place] [id number], [address], [place], [place], tel:[phone]. [id number] tel:[phone] Offic/outpt [facility] [place] Crohn's No Referring E&m [facility] IleitisDiarrheaA 3200 Information Provider: [facility] DANNA, bdominal Pain, 7 Lou[address] Martell Unspecified Rashawn [place]O [address], [place], [address], [place], [place] [id number], [address], [place], [place], tel:[phone]. [id number] tel:[phone] [facility] [place] [facility] Colon Cancer No Referrin g Dig[facility]ive Endoscopy ScreeningHemorrh 200 Information Provider: [facility] [place] oids [address] [place] [address], [place], [address], [place], [place] [id number], [address], [place], [place], tel:[phone]. [id number] tel:[phone] Offic/outpt [facility] [place] Crohn's No Referring E m [facility] small/large 8[address] Information Prov ider: [facility] Kobe CLAY, intestine [address] [place] [address], [place], [address] [place] [address], [place], [place] [id number], [address], [place], [place], tel:[phone]. [id number] tel:[phone] [facility] [place] [facility] Sep-0 No Referring [facility]oscopy 5[address] Information Provider : [facility] [place] [address] [place] [address], [place], [address], [place], [place] [id number], [address], [place], [place], tel:[phone]. [id number] tel:[phone] Family History Family Member Type Diagnosis Age At Onset First degree family history Problem (finding) ulcerative colitis First degree family history Problem (finding) diverticulitis of colon First degree family history Problem (finding) Irritable bowel di sease First degree family history Problem (finding) alcoholism First degree family history Problem (finding) Colon Polyps First degree family history Problem (finding) Cholelithasis First degree family history Problem (finding) Cancer, breast First degree family history Problem (finding) GERD First degree family history Problem (finding) Thyroid Disorder First degree family history Problem (finding) peptic ulceration First degree family history Problem (finding) asthma Payers Payer name Insurance type Covered republican ID Authorization(s ) No Information Social History Type Description Quantity Date Captured Comments Sex Female Smoking Status No Information Chief Complaint And Reason For Visit No Information Reason For Referral Reason For Referral No Information Plan Of Treatment Date Type Action Status No Information History Of Present Illness Encounter Date Complaint History Of Present I llness No Information Functional Status Date Functional Assessment No Information Instructions Date Instruction Additional Informati on No Information Assessments Type Assessment Date No Information Patient Care Teams Name Effective Dates (start - stop) Status M yolanda No Information
--- OUTSIDE RECORDS SUMMARY | 2022-02-21 09:16 | XMS_ITS | Clinical Summary ---
:1955 Author Organization [facility] Address [address] [place] [address] Care Team Providers Name Role Phone Unavailable Primary Care Provider Unavailable Source Comments Patient records contain information from all sites at [facility]. For routine questions regarding patient records, call [phone] during business hours, M-F 8:00 AM - 5:00 PM Central Time. Record requests for emergency care only can be directed to [phone] at any time.[facility] Allergies Active Allergy Reactions Severity Noted Date Comments Adalimumab Rash High 02/29/2016 Codeine Other (see comments), Nausea Only Low 008 Nausea Hydrochlorothiazide Rash High 04/29/2008 Rash Ibuprofen Other (see comments) 08/25/2016 Medications Medication Sig Dispensed Refills Start Date End Date Status tacrolimus Apply 1 100 g 5 02/08/2022 Active (PROTOPIC) 0.1 % application ointmentIndications: topically 2 Dermatitis (two) times a Asteatotic Xerotic day. Apply to rash. hydrocortisone 2.5 % Apply 1 454 g 3 02/08/2022 Active ointmentIndications: application Dermatitis topically 2 Asteatotic Xerotic (two) times a day. Apply to rash. ruxolitinib 1.5 % Apply 1 60 g 5 02/08/2022 A ctive creamIndications: application Dermatitis topically 2 Asteatotic Xerotic (two) times a day. Apply to rash. triamcinolone Apply 1 454 g 3 02/08/2022 Activ e (KENALOG) 0.1 % application creamIndications: topically 2 Dermatitis (two) times a Asteatotic Xerotic day as needed (Rash). Apply to affected areas twice a day under wet wraps. clindamycin (Cleocin Apply 1 60 mL 3 02/08/2022 Active T) 1 % application lotionIndications: topically daily. Furunculosis Apply to boil. simvastatin (ZOCOR) Take 40 mg by 0 12/14/2021 Active 40 mg tablet mouth daily. sertraline (Zoloft) Take 1 tablet by 0 04/17/2012 Active 100 mg tablet mouth every morning. sertraline (Zoloft) Take 1 tablet by 0 04/17/2012 Active 50 mg tablet mouth every morning. omeprazole Take 40 mg by 0 12/14/2021 Acti ve (PriLOSEC) [address] mouth daily. capsule docosahexaenoic Take 1 g by 0 Ac tive acid-epa 120-180 mg mouth. capsule omega-3 acid ethyl Take 2 g by 0 09/18/2016 Active esters (LOVAZA) 1 mouth. gram capsule melatonin 5 mg Take 1 tablet by 0 01/21/2013 Active tablet mouth at bedtime as needed. lisinopriL Take 20 mg by 0 12/14/2021 Acti ve (PRINIVIL,ZESTRIL) mouth daily. 20 mg tablet inFLIXimab Infuse into a 0 04/17/2012 Acti ve (REMICADE) 10 mg/mL venous catheter. injection furosemide (LASIX) Take 20 mg by 0 12/14/2021 Active 20 mg tablet mouth daily. cyanocobalamin Take 1 tablet by 0 09/18/2016 Active (VITAMIN B12) 1,000 mouth daily. mcg tablet cholecalciferol daily. 0 Acti ve (VITAMIN D3) 125 mcg (5,000 Unit) capsule aspirin [address] Take 81 mg by 0 09/18/2016 Active tablet mouth. acetaminophen Take 500 mg by 0 09/18/2016 Active (TYLENOL) 500 mg mouth as needed. tablet polyethylene Drink 1st 4000 mL 0 02/13/2022 Active glycol-electrolytes portion of prep (GoLYTELY) at 6 PM the 236-22.74-6.74 -5.86 evening before. gram solution 2nd portion must be started 3 hours before and finished 2 hours prior to report time triamcinolone Apply 1 454 g 3 11/12/2021 02/09/20 Disco ntinued (KENALOG) 0.1 % application 22 creamIndications: topically 2 Psoriasis (two) times a day as needed (Rash). Apply to affected areas twice a day under wet wraps. fluocinonide (LIDEX) Apply 1 60 g 3 11/12/2021 02/09/20 Discontinued 0.05 % application 22 ointmentIndications: topically 2 Psoriasis (two) times a week. Apply to affected areas on the weekend for maintenance treatment. calcipotriene Apply 1 120 g 3 11/27/2021 02/09/20 Disco ntinued (DOVONEX) 0.005 % application 22 ointmentIndications: topically 2 Psoriasis Vulgaris, (two) times a Psoriasis Guttate day. Apply to the affected areas. Active Problems Problem Noted Date Crohn's Disease 02/29/2016 Encounters Date Type Specialty Care Team Description 02/13/2022 Hospital Encounter Laboratory Medicine Sara Nguyen ninfective Gastroenteritis And Colitis Unspecified; Erica Alexander, Crohn's Disease (HCC); M.D. Infection Urina ry Tract Recurrent; Prolapse Rectal ; Pelvic Floor Te nsion; Abnormal Uterin e And Vaginal Bleeding Unspecified 02/13/2022 Comprehensive Visit Gastroenterology and Patrick, Crohn's Disease (HCC) (Primary Dx); Hepatology Erica Alexander, Noninfective Ga stroenteritis And Colitis Unspecified; M.D. Infection Urina ry Tract Recurrent; Prolapse Rectal ; Pelvic Floor Te nsion; Abnormal Uterin e And Vaginal Bleeding Unspecified 02/12/2022 Orders Only Pharmacy Kenia Crespo 02/08/2022 Office Visit Marilu Valiente Dermatitis Aste atotic Xerotic (Primary Dx); Venkatesh Ellis Furunculosis; Keratosis Sebor rheic Inflamed 02/08/2022 Ancillary Procedure 02/08/2022 Ancillary Procedure 02/08/2022 Ancillary Procedure 02/08/2022 Orders Only Marilu Valiente M.D. 01/14/2022 Clinical Admitting/Central Pre-visit Intake Communication Scheduling 11/27/2021 Orders Only Marilu Valiente Psoriasis Vulga ris (Primary Dx); Venkatesh Ellis Psoriasis Octavio te; Psoriasis 11/26/2021 Clinical Pharmacy [facility] Rx Prior Communication D Authorization (PA JOAN - CALCIPOTRIENE 0 .005% OINTMENT) 11/26/2021 Orders Only Pharmacy Car [facility]ena[facility] 11/26/2021 Orders Only Dermatology Janice Gonzalez M.D. from Last 3 Months Immunizations Name Administration [...] or relatives? How often do you attend jain or caodaism Patient refused 01/09/2022 services? Do you belong to any clubs or organizations Yes 01/09/2022 such as jain groups, unions, fraternal or athletic groups, or [...] place to sleep or slept in a longterm (including now)? Education Answer Date Recorded What is the highest level of school Bachelor's degree (e.g., BA, AB, 01/09/2022 you have completed or the highest BS) degree you have received? Sex Assigned at Date Recorded Female 01/09/2022 4:35 PM CDT Last Filed Vital Signs Vital Sign Reading Time Taken Comments Blood Pressure 132/75 02/13/2022 10:07 AM CDT Pulse 69 02/13/2022 10:07 AM CDT Temperature - - Respiratory Rate 19 02/13/2015 9:34 AM Vital sig n result CDT from Clinical No diane. Oxygen Saturation - - Inhaled Oxygen - - Concentration Weight 100 kg (220 lb 14.4 02/13/2022 10:07 oz) AM CDT Height 165.7 cm (5' 5.24) 02/13/2022 10:07 AM CDT Body Mass Index 36.49 02/13/2022 10:07 AM CDT Plan of Treatment Health Maintenance Due Date Last Done Comments Bone Density Scan 1955 (Osteoporosis Screen) CT Colonography 1955 Cologuard 1955 Hepatitis C Screening 1955 Zoster Vaccines (1 of 2) 04/20/2015 02/23/2015 Mammogram 03/23/2016 03/23/2015 (Performed elsewhere), 03/04/2014, 01/14/2013, Additional history exists Colonoscopy 11/19/2018 11/19/2013, 11/19/2013, 01/21/2005 (Performed elsewhere) Colorectal Cancer 11/19/2018 Surveillance Depression Screening 06/23/2021 (Annual PHQ-2) Fall Risk Screen (Annual) 06/23/2021 COVID-19 Vaccine (5 - 11/20/2021 07/23/2021, 07/23/2021, Booster for Moderna series) 02/19/2021, Addition al history exists DTaP,Tdap,and Td Vaccines 01/21/2022 01/22/2012, 12/17/2011 , (3 - Td or Tdap) 12/06/2004 Influenza Vaccine (#1) 2022 04/11/2021, 04/11/2021, 04/04/2020, Additional history exists Creatinine Level 02/13/2023 02/13/2022, 08/27/2019, 09/03/2018, Additional history exists Potassium Level 02/13/2023 02/13/2022, 08/27/2019, 09/03/2018, Additional history exists Sodium Level 02/13/2023 02/13/2022, 08/27/2019, 09/03/2018, Additional history exists Fasting Glucose for 02/13/2025 02/13/2022, 08/27/2019, Diabetes Screening 09/03/2018 Pneumococcal vaccine (65+ Completed 12/21/2020, 04/04/2020 years) HPV Vaccines Aged Out No longer eligib le based on patient 's age to complete this topic Medical Devices Implanted Type Area Janitor Custodian Device Shelf Model / Identifier Expiration Date Ser ial / Lot Nevaeh-Mesh [id number].[id number](Gold) - Muñiz [id number] Str yker Implanted: Qty: 1 on 04/20/2012 pins/screws/r ods Description: Device Janitor Custodian - [employer] Zero Locus Florina.. Device Status Text - [id number]. Knee Implant-11/22/2015 Knee Implant Right: Knee Implanted: 11/22/2015 (Quantity not on file) [place] Richard Fuzzy 1 X 1 - Muñiz [id number] Mesh or Patch [employer] Implanted: Qty: 1 on 04/20/2012 Description: Device Janitor Custodian - DeRoy al. Device Status Text - [id number]. [facility] Data - [id number]. Procedures Procedure Name Priority Date/Time Associated Diagnosis Comme nts VITAMIN B12 ASSAY, S Routine 02/13/2022 11:34 Noninfective Res ults for this AM CDT Gastroenteritis And procedur e are in Colitis Unspecif ied the results Crohn's Disease (HCC) section. Infection Urinary Tract Recurrent Prolapse Rectal Pelvic Floor Ten rosalia Abnormal Uterine And Vaginal Bleeding Unspecified 25-HYDROXYVITAMIN D2 Routine 02/13/2022 11:34 Noninfective Res ults for this AND D3, S AM CDT Gastroenteritis And procedur e are in Colitis Unspecif ied the results Crohn's Disease (HCC) section. Infection Urinary Tract Recurrent Prolapse Rectal Pelvic Floor Ten rosalia Abnormal Uterine And Vaginal Bleeding Unspecified COMPREHENSIVE Routine 02/13/2022 11:34 Noninfective Results fo r this METABOLIC PANEL, S/P AM CDT Gastroenteritis And procedure are in Colitis Unspecif ied the results Crohn's Disease (HCC) section. Infection Urinary Tract Recurrent Prolapse Rectal Pelvic Floor Ten rosalia Abnormal Uterine And Vaginal Bleeding Unspecified CBC WITH Routine 02/13/2022 11:34 Noninfective Results for this DIFFERENTIAL, B AM CDT Gastroenteritis And proce dure are in Colitis Unspecif ied the results Crohn's Disease (HCC) section. Infection Urinary Tract Recurrent Prolapse Rectal Pelvic Floor Ten rosalia Abnormal Uterine And Vaginal Bleeding Unspecified DERMATOLOGY IMAGE Routine 02/08/2022 12:10 Result s for this EXAM AM CDT procedure are i n the results section. DERMATOLOGY IMAGE Routine 02/08/2022 12:05 Result s for this EXAM AM CDT procedure are i n the results section. DERMATOLOGY IMAGE Routine 02/08/2022 12:00 Result s for this EXAM AM CDT procedure are i n the results section. from Last 3 Months Results 25-Hydroxyvitamin D2 and D3 (02/13/2022 11:34 AM CDT) P athologist Signature 25-Hydroxy D2 <4.0 ng/mL 02/14/2022 SDSC 10:48 PM CDT 25-Hydroxy D3 48 ng/mL 02/14/2022 SDSC 10:48 PM CDT 25-Hydroxy D 48 ng/mL 02/14/2022 SDSC Total 10:48 PM CDT Comment: ----REFERENCE VALUE---- 25-HYDROXY D TOTAL (D2+D3) Optimum level s in the healthy population are 20-50, patients with bone disease may benefit from higher levels within this r patricia. ----ADDITIONAL INFORMATION---- This test was developed and its performa nce characteristics determined by [facility] in a manner consistent with CLIA requirements. This test has not been cleared or approved by the [place] d and Drug Administration. Specimen Anatomical Collection Method Collection Time Receive d Time (Source) Location / / Volume Laterality Blood (Blood, 02/13/2022 11:34 02/14/2022 7:12 Venous) AM CDT AM CDT Erica Nguyen M.D. LAB BLOOD ADD-ON Performing Organization Address City/State/ZIP Code Phon e Number [facility] [address] [place], [place] [address] [facility] [place] [address] Laboratory Medicine and Pathology [address] [place] (ABNORMAL) CBC with Differential, Blood (02/13/2022 11:34 AM CDT) Patholo gist Method Time Signature Hemoglobin 12.4 11.6 - 02/13/2022 DTL 15.0 g/dL 12:19 PM CDT Hematocrit 39.6 35.5 - 02/13/2022 DTL 44.9 % 12:19 PM CDT Erythrocytes 4.81 3.92 - 02/13/2022 DTL 5.13 12:19 PM CDT x10(12)/L MCV 82.3 78.2 - 02/13/2022 DTL 97.9 fL 12:19 PM CDT RBC Distrib Width 16.6 (H) 12.2 - 02/13/2022 DTL 16.1 % 12:19 PM CDT Platelet Count 193 157 - 371 02/13/2022 DTL x10(9)/L 12:19 PM CDT Leukocytes 7.4 3.4 - 9.6 02/13/2022 DTL x10(9)/L 12:19 PM CDT Neutrophils 4.63 1.56 - 02/13/2022 DTL 6.45 12:19 PM CDT x10(9)/L Lymphocytes 2.06 0.95 - 02/13/2022 DTL 3.07 12:19 PM CDT x10(9)/L Monocytes 0.50 0.26 - 02/13/2022 DTL 0.81 12:19 PM CDT x10(9)/L Eosinophils 0.12 0.03 - 02/13/2022 DTL 0.48 12:19 PM CDT x10(9)/L Basophils 0.04 0.01 - 02/13/2022 DTL 0.08 12:19 PM CDT x10(9)/L Specimen Anatomical Collection Method Collection Time Receive d Time (Source) Location / / Volume Laterality Blood (Blood, 02/13/2022 11:34 02/13/2022 Venous) AM CDT 12:03 PM CDT Erica Nguyen M.D. LAB BLOOD ADD-ON Performing Organization Address City/State/ZIP Code Phon e Number [facility] - [address] [place], [place] [address] [facility] [place] [address] [facility] [address] [facility] Vitamin B12 Assay (02/13/2022 11:34 AM CDT) athologist Signature Vitamin B12 636 180 - 916 02/13/2022 DTL Assay, S ng/L 1:13 PM CDT Comment: ----ADDITIONAL INFORMATION---- In patients being evaluated for vitamin B12 deficiency who have intrinsic factor blocking antibodie s (IFBA), false elevations of B12 may occur due to IFBA interference thus potentially obscuring a physiological de ficiency of B12. If observed B12 concentrations are disco rdant with clinical presentation, measurement of methylmalon ic acid (MMA) should be considered. Specimen Anatomical Collection Method Collection Time Receive d Time (Source) Location / / Volume Laterality Blood (Blood, 02/13/2022 11:34 02/13/2022 Venous) AM CDT 12:19 PM CDT Erica Nguyen M.D. LAB BLOOD ADD-ON Performing Organization Address City/State/ZIP Code Phon e Number [facility] - [address] [place] [address] [facility] [place] [place] [address] [facility] [address] [facility] Comprehensive Metabolic Panel (02/13/2022 11:34 AM CDT) P athologist Signature Potassium, S 4.3 3.6 - 5.2 02/13/2022 DTL mmol/L 12:44 PM CDT Sodium, S 137 135 - 145 02/13/2022 DTL mmol/L 12:44 PM CDT Chloride, S 102 98 - 107 02/13/2022 DTL mmol/L 12:44 PM CDT Bicarbonate, S 26 22 - 29 02/13/2022 DTL mmol/L 12:44 PM CDT Anion Gap 9 7 - 15 02/13/2022 DTL 12:44 PM CDT BUN (Blood Urea 16 6 - 21 02/13/2022 DTL Nitrogen), S mg/dL 12:44 PM CDT Creatinine 0.89 0.59 - 02/13/2022 DTL 1.04 mg/dL 12:44 PM CDT Estimated GFR 71 >=60 02/13/2022 DTL (eGFR) mL/min/BSA 12:44 PM CDT Comment: Estimated GFR calculated using the 2020 CKD_EPI creatinine equation. Calcium, Total, S 9.1 8.8 - 10.2 mg/dL 02/13/2022 12:4 4 PM CDT DTL Glucose, S 107 70 - 140 mg/dL 02/13/2022 12:44 PM CDT DTL Protein, Total, S 7.1 6.3 - 7.9 g/dL 02/13/2022 12:44 PM CDT DTL Albumin, S 4.2 3.5 - 5.0 g/dL 02/13/2022 12:44 PM CDT DTL Aspartate Aminotransferase 22 8 - 43 U/L 02/13/2022 1 2:44 PM CDT DTL (AST), S Alkaline Phosphatase, S 69 35 - 104 U/L 02/13/2022 12 :44 PM CDT DTL Alanine Aminotransferase (ALT), 21 7 - 45 U/L 022 12:44 PM CDT DTL S Bilirubin, Total, S 0.4 <=1.2 mg/dL 02/13/2022 12:44 P M CDT DTL Specimen Anatomical Collection Method Collection Time Receive d Time (Source) Location / / Volume Laterality Blood (Blood, 02/13/2022 11:34 02/13/2022 Venous) AM CDT 12:20 PM CDT Erica Nguyen M.D. LAB BLOOD ADD-ON Performing Organization Address City/State/ZIP Code Phon e Number [facility] - [address] [place], [place] [address] [facility] [place] [address] [facility] [address] [facility] Trunk-Dermatology Image Exam (02/08/2022 12:10 AM CDT)Only the most recent of3 resultswithin the time period is included. Specimen (Source) Anatomical Location Collection Method / Collectio n Time Received Time / Laterality Volume Narrative IIMS - 02/08/2022 4:41 PM CDT This order has been created and auto-finalized to support the import of images acquired without order. The clini moose documentation to support these images can be found on the encounter luanne t produced images. Provider Not In System IMG NON RAD IMAGING PROCEDUR ES Performing Organization Address City/State/ZIP Code Phon e Number IIOH IIMS NA from Last 3 Months Insurance Payer Benefit Plan Subscriber ID Effective Phone Address Typ e / Group Dates MEDICARE MEDICARE A [id number] 2019-Prese [address] [place] [address] [employer] [id number] 2019-Prese [phone] [address] [place] [id number] [place] [id number] Guarantor Name Account Type Relation to Date of Phone Billing Address Patient Brittaney Rolnad Personal/Famil Self 1955 [phone] [address] [facility] TRACI Anguiano y (Home) TANESHA Bender [phone] [id number] (Work)
--- OUTSIDE RECORDS SUMMARY | 2022-02-21 09:17 | XMS_ITS | Encounter Summary ---
:1955 Author Organization [facility] Address [address] [place] [address] Care Team Providers Name Role Phone Unavailable [...] How often do you attend quaker or hinduism Patient refused 01/09/2022 services? Do you belong [...] Sig Dispensed Refills Start Date End Date inFLIXimab (REMICADE) 10 Infuse into a venous 0 1 mg/mL injection catheter. melatonin 5 mg tablet Take 1 tablet by mouth 0 at bedtime as needed. sertraline (Zoloft) 100 Take 1 tablet by mouth 0 04/17/2012 mg tablet every morning. sertraline (Zoloft) 50 mg Take 1 tablet by mouth 0 04/17/2012 tablet every morning. documented as of this encounter Plan of Treatment Not on filedocumented as of this encounter Visit Diagnoses Not on filedocumented in this encounter
--- OUTSIDE RECORDS SUMMARY | 2022-02-21 09:17 | XMS_ITS | Encounter Summary ---
:1955 Author Organization [facility] Address [address] [place] [address] Care Team Providers Name Role Phone Unavailable Primary Care Provider Unavailable Encounter Details Date Type Department Care Team Description 03/14/2009 Hospital Encounter [facility] INPT/OBSRV Kala Mast M.D. [address] [place], [place] [address] (Wo rk) Social History [...] or relatives? How often do you attend baptism or hoahaoism Patient refused 01/09/2022 services? Do you belong to any clubs or organizations Yes 01/09/2022 such as baptism groups, unions, fraternal or athletic groups, or [...]
--- OUTSIDE RECORDS SUMMARY | 2022-02-21 09:17 | XMS_ITS | Encounter Summary ---
:1955 Author Organization [facility] Address [address] [place] [address] Care Team Providers Name Role Phone Unavailable Primary Care Provider Unavailable Encounter Details Date Type Department Care Team Description 04/27/2009 Hospital Encounter HX [facility] INPT/OBSRV Irene Mahoney M.D. [address] [place] [address] (Wo rk) Social History Tobacco Use Types [...] or relatives? How often do you attend pentecostal or baptist Patient refused 01/09/2022 services? Do you belong to any clubs or organizations Yes 01/09/2022 such as pentecostal groups, unions, fraternal or athletic groups, or [...]
--- OUTSIDE RECORDS SUMMARY | 2022-02-21 09:17 | XMS_ITS | Encounter Summary ---
:[address] [facility] Address [address] [place] [address] Care Team Providers Name Role Phone Unavailable Primary Care Provider Unavailable Encounter Details Date Type Department Care Team Description 04/14/2009 Hospital Encounter HX [facility] Rich Doyle, INPT/OBSRV M.DElvis [address] [id number] (Wo rk) Social History Tobacco [...] or relatives? How often do you attend confucianism or confucianism Patient refused 01/09/2022 services? Do you belong to any clubs or organizations Yes 01/09/2022 such as confucianism groups, unions, fraternal or athletic groups, or [...]
--- OUTSIDE RECORDS SUMMARY | 2022-02-21 09:17 | XMS_ITS | Encounter Summary ---
:1955 Author Organization [facility] Address [address] [place] [address] Care Team Providers Name Role Phone Unavailable Primary Care Provider Unavailable Encounter Details Date Type Department Care Team Description 11/14/2021 Orders Only Pharmacy Prior Auth Melinda Lauren [phone] Social History Tobacco Use Types Packs/Day Years [...] How often do you attend samaritan or baptism Patient refused 01/09/2022 services? Do [...]
--- OUTSIDE RECORDS SUMMARY | 2022-02-21 09:17 | XMS_ITS | Encounter Summary ---
:1955 Author Organization [facility] Address [address] [place] [address] Care Team Providers Name Role Phone Unavailable Primary Care Provider Unavailable Reason for Referral Outpatient (Routine) - Authorized Specialty Diagnoses / Referred By Referred To Cont act Procedures Contact Gastroenterology and Erica Nguyen [facility] Hepatology Venkatesh [address] [place] [phone] Referral ID Status Reason Start Date Expiration Date Visits V isits Requested Authorized [id number] Authorized 02/13/2022 02/12/2025 1 1 Outpatient (Routine) - Authorized Specialty Diagnoses / Procedures Referred By Contact Refer red To Contact Obstetrics and Diagnoses Noninfective Gastroenteritis And Colitis Unspecified Crohn's Disease (HCC) Infection Urinary Tract Recurrent Prolapse Rectal Pelvic Floor Tension Abnormal Uterine And Vaginal Bleeding Unspecified Erica Nguyen [facility] Gynecology Venkatesh [address] [place] [address] Referral ID Status Reason Start Date Expiration Date Visits V isits Requested Authorized [id number] Authorized 02/13/2022 02/13/2023 1 1 Outpatient (Routine) - Authorized Specialty Diagnoses / Procedures Referred By Contact Refer red To Contact Diagnoses Noninfective Gastroenteritis And Colitis Unspecified Crohn's Disease (HCC) Infection 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 [facility] Procedures Enema Prep [address] [place] [address] Referral ID Status Reason Start Date Expiration Date Visits V isits Requested Authorized [id number] Authorized 02/13/2022 02/13/2023 1 1 Outpatient (Routine) - Authorized Specialty Diagnoses / Procedures Referred By Contact Refer red To Contact Diagnoses Noninfective Gastroenteritis And Colitis Unspecified Crohn's Disease (HCC) Infection 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 [facility] Procedures Anorectal Manometry [address] [place] [address] Referral ID Status Reason Start Date Expiration Date Visits V isits Requested Authorized [id number] Authorized 02/13/2022 02/13/2023 1 1 MRI/CAT/PET Scan (Routine) - Authorized Specialty Diagnoses / Procedures Referred By Contact Refer red To Contact Radiology Diagnoses Noninfective Gastroenteritis And Colitis Unspecified Erica Nguyen M.D. [facility] Procedures CT Abdomen Pelvis Enterography with IV Contrast [address] [place] [address] Referral ID Status Reason Start Date Expiration Date Visits V isits Requested Authorized [id number] Authorized 02/13/2022 02/13/2023 1 1 Outpatient (Routine) - Authorized Specialty Diagnoses / Procedures Referred By Contact Refer red To Contact Diagnoses Crohn's Disease (HCC) Infection Urinary Tract Recurrent Erica Nguyen M.D. [facility] Procedures Colonoscopy [address] [place] [address] Referral ID Status Reason Start Date Expiration Date Visits V isits Requested Authorized [id number] Authorized 02/13/2022 02/13/2023 1 1 Reason for Visit Appointment Request (Routine) - Closed Specialty Diagnoses / Referred By Contact Referred To Procedures Contact Gastroenterology and Diagnoses Crohn's Disease (HCC) Hepatology Referral ID Status Reason Start Date Expiration Date Visits Requ ested Visits Authorized [id number] Closed 11/02/2021 11/02/2022 1 1 Encounter Details Date Type Department Care Team Description 02/13/2022 Comprehensive Visit Division of [place], Crohn's Disease (HCC) (Primary Dx); Gastroenterology in Erica Alexander Noninfec tive Gastroenteritis And Colitis Unspecified; [place], [place] Venkatesh Infection Urinary Tract Recurrent; [address] Prolapse Rectal; [facility] Pelvic Floor Tension; [phone] [place], Abnormal Uterine And Vaginal Bleeding Unspecified [phone] [place] [phone] Social History Tobacco Use Types Packs/Day Years [...] How often do you attend scientology or worship Patient refused 01/09/2022 services? Do [...] for the very basics like Not h mrecedes at all 01/09/2022 food, housing, medical care, [...] slept in a group home (including now)? Education Answer Date Recorded What [...] AM CDT Temperature - - Respiratory Rate - - Oxygen Saturation - - Inhaled Oxygen Concentration - - Weight 100 kg (220 lb 14.4 oz) 02/13/2022 10:07 AM CDT Height 165.7 cm (5' 5.24) 02/13/2022 10:07 AM CDT Body Mass Index 36.49 02/13/2022 10:07 AM CDT documented in this encounter Consult Notes Erica Nguyen M.D. 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 Prior therapy includes mesalamine, budesonide, mercaptopurine, adalimumab, and currently infliximab since 2007, currently at a dose of 10 milligrams/kilogram every 4-5 weeks. Additional history includes psoriasis, asteatotic dermatitis, and obstructive sleep apnea onCPAP. Her last colonoscopy back in 2013 demonstrated a few small ulcers in the terminal ileum as well as some mild luminal narrowing presumed related to prior inflammatory changes. She had a 3 mm pseudo polyp in the proximal transverse colon but no active colitis. She has otherwise not been seen for her Crohn's disease since that time. She is currently getting her infusions through Dr. Paz at [facility]. From a Crohn's disease perspective she feels as though all she is stable overall. Bowel movements are typically soft/formed and occur every 3 days up to twice daily. She does note that she has had at least 4 episodes of urinary tract infection since July 2021 and as a result has had multiple courses of antibiotics which tend to make her stools looser. This often improves when she goes off antibiotics. She also developed COVID about a month ago and had diarrhea with that that persisted for about 3 weeks, which is improving. She denies any significant abdominal pain. Given the recurrent UTI she has been seeing urology locally. There is some reported concern for rectal prolapse as well as urinary incontinence/retention with overflow. Given this in addition to some concerns about abnormal uterine bleeding she has been referred to Urogynecology in the prospect of proceeding with some sort of pelvic floor therapy has been reviewed. She denies any pneumaturia. She has also been seeing Dermatology since October for psoriatic type lesions which are now felt to be more consistent with asteatotic dermatitis. With the institution of topical therapy this has significantly improved. She recently saw them lastweek when they made recommendations regarding alternative topical therapy to reduce some of the corticosteroid exposure she was getting with the notation of some thinning and abdominal surgery in that was noted on exam. One of the questions that have been post back in October was whether this was related to her infliximab and she should be transition to ustekinumab. Based on the recent notes it is not clear that this is secondary to infliximab, she has certainly improved, and at this time plans are to proceed with topical therapy. Review of Systems Constitutional: Positive for fatigue. Skin: Positive for skin rash. Eyes: Positive for visual problems. ENT: Positive for difficulty hearing. Gastrointestinal: Positive for abdominal (belly) pain or cramping. Genitourinary: Positive for abnormal vaginal bleeding, incontinence, pain with urination, blood in urine, urgency and frequent urination. Musculoskeletal: Positive for pain or stiffness in the joints, back pain and muscle pain/stiffness. Neurological: Positive for numbness or shooting pain in hands, arms, legs, or feet. The following systems were negative: Respiratory, Cardiovascular, Hematologic, Psychiatric As per HPI OBJECTIVE Physical Exam Physical Exam General: Alert, oriented, no acute distress. Abdomen: Soft, nontender, nondistended. Bowel sounds present. No hepatosplenomegaly. Rectum: Normal external appearance without hemorrhoids, fissures or fistulas. Upon visualization with bearing down I did not identify any obvious rectal prolapse. Perineal descent appears limited upon visualization. Digital exam is without pain. Resting tone and squeeze are normal. No anal canal stenosis. No stool in rectal vault. She did have evidence of paradoxical puborectalis contraction on multiple attempts with digital exam. ASSESSMENT / PLAN #1 Ileal and possibly duodenal Crohn's disease, diagnosed in 2005, currently clinically quiescent oninfliximab 10 mg/kg every 4-5 weeks #2 Asteatotic dermatitis #3 Recurrent UTIs #4 Abnormal uterine bleeding Mrs. Roland presents today for follow-up of her Crohn's disease. Overall she feels like she is relatively stable/doing well from this perspective. Her main issues recently have been dermatologic and urogynecologic. Recommend proceeding with colonoscopy given it has been about 8 years and we need to reassess the status of her disease. Will request this with terminal ileal exam as well as random biopsies to assess for any colonic activity CT enterography not only to assess for any activity of Crohn's disease but also given her frequent UTI to make sure she has not developed any complications such as fistulizing Crohn's Anorectal manometry given reportedly local concerns over pelvic floor dysfunction, rectal prolapse, and urinary issues. Discussed if this is abnormal we could refer her to PMR. Otherwise I agree with the plans to have her seen by Urogynecology The perspective of her Crohn's disease therapy, particularly if her disease is endoscopically and radiographically quiescent I think it would make the most sense at this time to continue infliximab given it seems her dermatologic issues are being controlled topically. If this becomes a more major issue down the road or it is no longer controlled we can certainly consider the prospect of transitioningto something like Stelara. We discussed that unfortunately there is no guarantee that she would haveas good of success with this medication and we would also have to consider the potential concern that this may not be covered by Medicare, which is often and issue with Stelara in our patients over 65. I advised her that based on our records it looks as though she may be due for Tdap as well as Shingrix vaccines. She thinks she may have had these done locally and is going to check. Discussed above with the patient who is in agreement with the plan. She otherwise had no further questions or concerns. I will follow up with her with results of testing. documented in this encounter Plan of Treatment Scheduled Orders Name Type Priority Associated Diagnoses Order S chedule Colonoscopy GI Routine Crohn's Disease (HCC) Expected: Infection Urinary 02/13/2022 Tract Recurrent (Approximate ), Expires: 05/16/2023 CT Abdomen Pelvis Imaging RAD - Routine Noninfective Expected: Enterography with IV (most inpatients Gastroenteritis And 02/13/2022 Contrast and all Colitis Unspecified (Approxi mate), outpatients) Expires: 05/16/2023 Anorectal Manometry GI Routine Noninfective Expected : Gastroenteritis And 02/14/20 Colitis Unspecif ied (Approximate), Crohn's Disease (HCC) Expires: Infection Urinary 05/16/2023 Tract Recurrent Prolapse Rectal Pelvic Floor Tension Enema Prep Procedures Routine Noninfective Expected: Gastroenteritis And 02/14/20 Colitis Unspecif ied (Approximate), Crohn's Disease (HCC) Expires: Infection Urinary 05/16/2023 Tract Recurrent Prolapse Rectal Pelvic Floor Tension Scheduled Referrals Name Type Priority Associated Diagnoses Order S chedule Obstetrics and Outpatient Routine Noninfective Expected: Gynecology - Referral Gastroenteritis And 02/14/20 Urogynecology consult Colitis Un specified (Approximate), (clinic) Crohn's Disease (HCC) Expires: Infection Urinary 05/16/2023 Tract Recurrent Prolapse Rectal Pelvic Floor Ten ro[place]ia Abnormal Uterine And Vaginal Bleeding Unspecified Gastroenterology and Outpatient Routine [facility] Hepatology office Referral starting visit (clinic) 02/13/2022 un til 05/16/2023 documented as of this encounter Results Vitamin B12 Assay (02/13/2022 11:34 AM CDT) P athologist Signature Vitamin B12 [id number] [phone] [id number] 02/13/2022 DTL Assay, S ng/L 1:13 PM [...] M.D. LAB BLOOD ADD-ON Performing Organization Address City/[facility] Phon e Number [facility] - [address] [place], [place] [address] [facility] [place] [address] Laboratories-[facility] [address] [facility] 25-Hydroxyvitamin D2 and D3 (02/13/2022 11:34 AM CDT) athologist Signature 25-Hydroxy D2 <4.0 ng/mL 02/14/2022 [...] and its performa nce characteristics determined by [facility] in a manner consistent with CLIA requirements. This test has not been cleared or approved by the [place] d and Drug Administration. Specimen Anatomical Collection Method Collection Time Receive d Time (Source) Location / / Volume Laterality Blood (Blood, 02/13/2022 11:34 02/14/2022 7:12 Venous) AM CDT AM CDT Erica Nguyen M.D. LAB BLOOD ADD-ON Performing Organization Address City/State/ZIP Code Phon e Number [facility] [address] [place], [place] [address] [facility] [place] [address] Laboratory Medicine and Pathology [address] [place] Comprehensive Metabolic Panel (02/13/2022 11:34 AM CDT) [...] Organization Address City/State/ZIP Code Phon e Number [facility] - [address] [place], [place] [address] [place] [address] [place] [address] Laboratories-[facility] [address] (ABNORMAL) CBC with Differential, Blood (02/13/2022 11:34 AM CDT) [employer] Method Time Signature Hemoglobin 12.4 11.6 - [...] Organization Address City/State/ZIP Code Phon e Number [facility] - [address] [place], [place] [address] [facility] [place] [place] [address] Laboratories-[facility] 200 [facility] documented in this encounter Visit Diagnoses Diagnosis Crohn's Disease (HCC) - Primary Noninfective Gastroenteritis And Colitis Unspecified Infection 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
--- OUTSIDE RECORDS SUMMARY | 2022-02-21 09:17 | XMS_ITS | Encounter Summary ---
:1955 Author Organization [facility] Address [address] [place] [address] Care Team Providers Name Role Phone Unavailable Primary Care Provider Unavailable Encounter Details Date Type Department Care Team Description 03/02/2015 Historical Ophthalmology RST OPH Hood Chand M.D., Ph.D. [address] [place], [place] [phone] (Wo rk) Social History [...] How often do you attend yarsani or anabaptism Patient refused 01/09/2022 services? Do [...] or slept in a longterm (including now)? Sex Assigned at Date Recorded [...] On February 01, 2015, she saw her leather case finisher, Dr. Liu for evaluation of this. She [...] gland dysfunction CDM Reports - EYEGEN Id: [id number] Status: Fnl documented in this encounter Plan of Treatment Not on filedocumented as of this encounter Visit Diagnoses Not on filedocumented in this encounter
--- OUTSIDE RECORDS SUMMARY | 2022-02-21 09:17 | XMS_ITS | Encounter Summary ---
:1955 Author Organization [facility] Address [address] [place] [address] Care Team Providers Name Role Phone Unavailable Primary Care Provider Unavailable Encounter Details Date Type Department Care Team Description 02/02/2009 Hospital Encounter [facility] IN[facility]/OBSRV Kala Mast M.D. [address] [place], [place] [address] (Wo rk) Social History [...] or relatives? How often do you attend mormon or uatsdin Patient refused 01/09/2022 services? Do you belong to any clubs or organizations Yes 01/09/2022 such as mormon groups, unions, fraternal or athletic groups, or [...] place to sleep or slept in a long term (including now)? Sex Assigned at Date Recorded Female 01/09/2022 4:35 PM CDT documented as of this encounter Plan of Treatment Not on filedocumented as of this encounter Visit Diagnoses Not on filedocumented in this encounter
--- OUTSIDE RECORDS SUMMARY | 2022-02-21 09:17 | XMS_ITS | Encounter Summary ---
:1955 Author Organization [facility] Address [address] [place] [address] Care Team Providers Name Role Phone Unavailable Primary Care Provider Unavailable Encounter Details Date Type Department Care Team Description 02/16/[address] [facility] INPT/OBSRV Kala Mast M.D. [address] [place], [place] [address] (Wo rk) Social History [...] or relatives? How often do you attend scientologist or latter-day Patient refused 01/09/2022 services? Do you belong to any clubs or organizations Yes 01/09/2022 such as scientologist groups, unions, fraternal or athletic groups, or [...]
--- OUTSIDE RECORDS SUMMARY | 2022-02-21 09:17 | XMS_ITS | Encounter Summary ---
:1955 Author Organization [facility] Address [address] [place] [address] Care Team Providers Name Role Phone Unavailable Primary Care Provider Unavailable Encounter Details Date Type Department Care Team Description 11/27/2021 Orders Only Department of Melecio, Marilu Ellis, Psoriasis Vu lgaris (Primary Dx); Dermatology in M.D. Psoriasis [place]; [place], [place] [address] [facility] Psoriasis [address] [place] [phone] Social History Tobacco Use Types Packs/Day Years [...] or relatives? How often do you attend jew or latter-day Patient refused 01/09/2022 services? Do you belong to any clubs or organizations Yes 01/09/2022 such as jew groups, unions, fraternal or athletic groups, or [...] filedocumented as of this encounter Visit Diagnoses Diagnosis Psoriasis Vulgaris - Primary Psoriasis [place] Psoriasis documented in this encounter
--- OUTSIDE RECORDS SUMMARY | 2022-02-21 09:17 | XMS_ITS | Encounter Summary ---
:1955 Author Organization [facility] Address [address] [place] [address] Care Team Providers Name Role Phone Unavailable Primary Care Provider Unavailable Reason for Referral Outpatient (Routine) - Closed Specialty Diagnoses / Procedures Referred By Contact Refer red To Contact Diagnoses Psoriasis Marilu Majano M.D. [facility] Procedures DX Foot Ankle Bilateral 3+ Views [address] [place] [phone] Referral ID Status Reason Start Date Expiration Date Visits Requ ested Visits Authorized [id number] Closed 11/12/2021 11/12/2022 1 1 Reason for Visit Outpatient (Routine) - Closed Specialty Diagnoses / Procedures Referred By Contact Refer red To Contact Diagnoses Psoriasis Marilu Majano M.D. [facility] Procedures DX Foot Ankle Bilateral 3+ Views [address] [place] [phone] Referral ID Status Reason Start Date Expiration Date Visits Requ ested Visits Authorized [id number] Closed 11/12/2021 11/12/2022 1 1 Encounter Details Date Type Department Care Team Description 11/12/2021 Hospital Encounter Department of Radiology, Marilu Majano M.D. [facility], in [address] [place] [address] [facility] [address] [place] [address] [phone] Social History Tobacco Use Types Packs/Day Years [...] How often do you attend holiness or methodist Patient refused 01/09/2022 services? Do you belong [...] Sig Dispensed Refills Start Date End Date acetaminophen (TYLENOL) Take 500 mg by mouth 0 500 mg tablet as needed. aspirin [address] tablet Take 81 mg by mouth. 0 cyanocobalamin (VITAMIN Take 1 tablet by 0 2016 B12) 1,000 mcg tablet mouth daily. inFLIXimab (REMICADE) 10 Infuse into a venous 0 1 mg/mL injection catheter. melatonin 5 mg tablet Take 1 tablet by 0 01/22/20 13 mouth at bedtime as needed. omega-3 acid ethyl Take 2 g by mouth. 0 7 esters (LOVAZA) 1 gram capsule sertraline (Zoloft) 100 Take 1 tablet by 0 2011 mg tablet mouth every morning. sertraline (Zoloft) 50 Take 1 tablet by 0 012 mg tablet mouth every morning. calcipotriene (DOVONEX) Apply 1 application 129 g 3 11/27/2021 0.005 % topically 2 (two) ointmentIndications: times a week. Apply Psoriasis to the affected areas. fluocinonide (LIDEX) Apply 1 application 60 g 3 202102/08/2022 0.05 % topically 2 (two) ointmentIndications: times a week. Apply Psoriasis to affected areas on the weekend for maintenance treatment. triamcinolone (KENALOG) Apply 1 application 454 g 3 02/08/2022 0.1 % creamIndications: topically 2 (two) Psoriasis times a day as needed (Rash). Apply to affected areas twice a day under wet wraps. documented as of this encounter Plan of Treatment Not on filedocumented as of this encounter Procedures Procedure Name [...] otherwise negative. Marilu [facility] PROCE NAVIN documented in this encounter Visit Diagnoses Diagnosis Psoriasis documented in this encounter
--- OUTSIDE RECORDS SUMMARY | 2022-02-21 09:17 | XMS_ITS | Encounter Summary ---
:1955 Author Organization [facility] Address [address] [place] [address] Care Team Providers Name Role Phone Unavailable Primary Care Provider Unavailable Encounter Details Date Type Department Care Team Description 03/31/2009 Hospital Encounter [facility] INPT/OBSRV Kala Mast M.D. [address] [place], [place] [address] (Wo rk) Social History [...] How often do you attend mandaen or moravian Patient refused 01/09/2022 services? Do [...] slept in a skilled nursing (including now)? Sex Assigned at Date Recorded Female 01/09/2022 4:35 PM CDT documented as of this encounter Plan of Treatment Not on filedocumented as of this encounter Visit Diagnoses Not on filedocumented in this encounter
--- OUTSIDE RECORDS SUMMARY | 2022-02-21 09:17 | XMS_ITS | Encounter Summary ---
:1955 Author Organization [facility] Address [address] [place] [address] Care Team Providers Name Role Phone Unavailable Primary Care Provider Unavailable Reason for Visit Reason Comments Rx Prior Authorization DANNA DENIED - CALCIPOTRIENE 0. 005% OINTMENT Encounter Details Date Type Department Care Team Description 11/26/2021 Clinical Pharmacy Prior [facility] Prior Communication Auth [id number] Authorization (DANNA DENIED - [place]CIPOTRIENE 0 .005% [...] How often do you attend baptist or buddhism Patient refused 01/09/2022 services? Do you belong [...]
--- OUTSIDE RECORDS SUMMARY | 2022-02-21 09:17 | XMS_ITS | Encounter Summary ---
:1955 Author Organization [facility] Address [address] [place] [address] Care Team Providers Name Role Phone Unavailable Primary Care Provider Unavailable Encounter Details Date Type Department Care Team Description 11/26/2021 Orders Only Pharmacy Prior Auth [facility] [phone] Social History Tobacco Use Types Packs/Day Years [...] How often do you attend jew or tenriism Patient refused 01/09/2022 services? Do [...]
--- OUTSIDE RECORDS SUMMARY | 2022-02-21 09:17 | XMS_ITS | Encounter Summary ---
:1955 Author Organization [facility] Address [address] [place] [address] Care Team Providers Name Role Phone Unavailable [...] or relatives? How often do you attend gnosticist or spiritism Patient refused 01/09/2022 services? Do you belong to any clubs or organizations Yes 01/09/2022 such as gnosticist groups, unions, fraternal or athletic groups, or [...]
--- OUTSIDE RECORDS SUMMARY | 2022-02-21 09:17 | XMS_ITS | Encounter Summary ---
:1955 Author Organization [facility] Address [address] [place] [address] Care Team Providers Name Role Phone Unavailable Primary Care Provider Unavailable Reason for Referral Outpatient (Routine) - Closed Specialty Diagnoses / Procedures Referred By Contact Refer red To Contact Diagnoses Psoriasis Marilu Majano M.D. [facility] Procedures DX Hand Bilateral 2 Views and Wrist Bilateral 2 Views [address] [place] [phone] Referral ID Status Reason Start Date Expiration Date Visits Requ ested Visits Authorized [id number] Closed 11/12/2021 11/12/2022 1 1 Reason for Visit Outpatient (Routine) - Closed Specialty Diagnoses / Procedures Referred By Contact Refer red To Contact Diagnoses Psoriasis Marilu Majano M.D. [facility] Procedures DX Hand Bilateral 2 Views and Wrist Bilateral 2 Views [address] [place] [phone] Referral ID Status Reason Start Date Expiration Date Visits Requ ested Visits Authorized [id number] Closed 11/12/2021 11/12/2022 1 1 Encounter Details Date Type Department Care Team Description 11/12/2021 Hospital Encounter Department of Radiology, Marilu Majano M.D. [facility], in [address] [place] [address] [address] [facility] [address] [place] [address] [phone] Social History Tobacco Use Types Packs/Day Years [...] or relatives? How often do you attend rastafarian or congregational Patient refused 01/09/2022 services? Do you belong to any clubs or organizations Yes 01/09/2022 such as rastafarian groups, unions, fraternal or athletic groups, or [...] nt, likely degenerative. Marilu [facility] documented in this encounter Visit Diagnoses Diagnosis Psoriasis documented in this encounter
--- OUTSIDE RECORDS SUMMARY | 2022-02-21 09:17 | XMS_ITS | Encounter Summary ---
:1955 Author Organization [facility] Address [address] [place] [address] Care Team Providers Name Role Phone Unavailable Primary Care Provider Unavailable Reason for Referral Outpatient (Routine) - Closed Specialty Diagnoses / Procedures Referred By Contact Refer red To Contact Dermatology Diagnoses Psoriasis Hansa Doty M.D. [facility] [address] [place] [address] Referral ID Status Reason Start Date Expiration Date Visits Requ ested Visits Authorized [id number] Closed 11/07/2021 11/07/2022 1 1 Encounter Details Date Type Department Care Team Description 11/07/2021 [facility] Hansa Doty Psoriasis (Primary AND CLINICS Venkatesh Pena Dx) 1999 [facility] [address] [place] [address] [phone] Social History Tobacco Use Types Packs/Day Years [...] or relatives? How often do you attend adventism or taoism Patient refused 01/09/2022 services? Do you belong to any clubs or organizations Yes 01/09/2022 such as adventism groups, unions, fraternal or athletic groups, or [...] as of this encounter Plan of Treatment Scheduled Referrals Name Type Priority Associated Order Schedule Diagnoses Dermatology Referral Outpatient Referral Routine Psoriasis Expected: 11/07/2021 (Approximate), Expires: 02/07/2023 documented as of this encounter Visit Diagnoses Diagnosis Psoriasis - Primary documented in this encounter
--- OUTSIDE RECORDS SUMMARY | 2022-02-21 09:17 | XMS_ITS | Encounter Summary ---
:1955 Author Organization [facility] Address [address] [place] [address] Care Team Providers Name Role Phone Unavailable Primary Care Provider Unavailable Encounter Details Date Type Department Care Team Description 02/13/2022 Hospital Encounter Department of Patrick, Noninfec tive Gastroenteritis And Colitis Unspecified; Laboratory Medicine Ana Craig Crohn's Disease (HCC); and Pathology, [address] [place] [address] Infection Urinary Tract Recurrent; [facility], in [place], [place] Prolaps e Rectal; [facility] [address] Pelvic Floor Tension; [place] [phone] Abnormal Uterine And Vaginal Bleeding Unspecified [address] [facility] (Work) [place], [place] [phone] (Fax) [phone] Social History Tobacco Use Types Packs/Day Years [...] How often do you attend restoration or mandaen Patient refused 01/09/2022 services? Do [...] or slept in a penitentiary (including now)? Education Answer Date Recorded What [...] tablet Take 81 mg by mouth. 0 cholecalciferol (VITAMIN daily. 0 D3) 125 mcg (5,000 Unit) capsule clindamycin (Cleocin T) 1 Apply 1 application 60 mL 3 0 02/08/2022 % lotionIndications: topically daily. Furunculosis Apply to boil. cyanocobalamin (VITAMIN Take 1 tablet by 0 2016 B12) 1,000 mcg tablet mouth daily. docosahexaenoic acid-epa Take 1 g by mouth. 0 120-180 mg capsule furosemide (LASIX) 20 mg Take 20 mg by mouth 0 tablet daily. hydrocortisone 2.5 % Apply 1 application 454 g 3 2021 ointmentIndications: topically 2 (two) Dermatitis Asteatotic times a day. Apply to Xerotic rash. inFLIXimab (REMICADE) 10 Infuse into a venous 0 1 mg/mL injection catheter. lisinopriL Take 20 mg by mouth 0 12/14/2021 (PRINIVIL,ZESTRIL) 20 mg daily. tablet melatonin 5 mg tablet Take 1 tablet by 0 01/22/20 13 mouth at bedtime as needed. omega-3 acid ethyl esters Take 2 g by mouth. 0 03 / (LOVAZA) 1 gram capsule omeprazole (PriLOSEC) 40 Take 40 mg by mouth [address] capsule daily. polyethylene Drink 1st portion of 4000 mL 0 02/13/2022 glycol-electrolytes prep at 6 PM the (GoLYTELY) [id number] evening before. 2nd -5.86 gram solution portion must be started 3 hours before and finished 2 hours prior to report time ruxolitinib 1.5 % Apply 1 application 60 g 5 2 creamIndications: topically 2 (two) Dermatitis Asteatotic times a day. Apply to Xerotic rash. sertraline (Zoloft) 100 mg Take 1 tablet by 0 tablet mouth every morning. sertraline (Zoloft) 50 mg Take 1 tablet by 0 03/24 tablet mouth every morning. simvastatin (ZOCOR) 40 mg Take 40 mg by mouth 0 0 12/14/2021 tablet daily. tacrolimus (PROTOPIC) 0.1 Apply 1 application 100 g 5 0 02/08/2022 % ointmentIndications: topically 2 (two) Dermatitis Asteatotic times a day. Apply to Xerotic rash. triamcinolone (KENALOG) Apply 1 application 454 g 3 0.1 % creamIndications: topically 2 (two) Dermatitis Asteatotic times a day as needed Xerotic (Rash). Apply to affected areas twice a day under wet wraps. documented as of this encounter Plan of Treatment Not on filedocumented as of this encounter Procedures Procedure Name Priority Date/Time Associated Diagnosis Comme nts 25-HYDROXYVITAMIN D2 Routine 02/13/2022 11:34 Noninfective Res [...] rosalia Abnormal Uterine And Vaginal Bleeding Unspecified VITAMIN B12 ASSAY, S Routine 02/13/2022 11:34 [...] rosalia Abnormal Uterine And Vaginal Bleeding Unspecified documented in this encounter Results Vitamin B12 Assay (02/13/2022 11:34 AM CDT) athologist Signature Vitamin B12 [phone] 02/13/2022 DTL Assay, S ng/L 1:13 PM [...] Organization Address City/State/ZIP Code Phon e Number [facility] - [address] [place], [place] [address] [place] [address] [facility] [address] 25-Hydroxyvitamin D2 and D3 (02/13/2022 11:34 AM [...] its performa nce characteristics determined by [facility] in a manner consistent with CLIA [...] Organization Address City/State/ZIP Code Phon e Number [facility] [address] [place], [place] [address] [facility] [place] [address] Laboratory Medicine and Pathology [address] [place] Comprehensive Metabolic Panel (02/13/2022 11:34 AM CDT) athologist Signature Potassium, S 4.3 3.6 - [...] Organization Address City/State/ZIP Code Phon e Number [facility] - [address] [place] [address] [place] [address] [facility] 200 [facility] (ABNORMAL) CBC with Differential, Blood (02/13/2022 11:34 AM CDT) [facility] Method Time Signature Hemoglobin 12.4 11.6 - [...] Organization Address City/State/ZIP Code Phon e Number [facility] - [address] [place], [place] [address] [facility] [place] [address] [facility] [address] [facility] documented in this encounter Visit Diagnoses Diagnosis Noninfective Gastroenteritis And Colitis Unspecified Crohn's Disease (HCC) Infection 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
--- OUTSIDE RECORDS SUMMARY | 2022-02-21 09:17 | XMS_ITS | Encounter Summary ---
:1955 Author Organization [facility] Address [address] [place] [address] Care Team Providers Name Role Phone Unavailable Primary Care Provider Unavailable Encounter Details Date Type Department Care Team Description 11/26/2021 Orders Only Department of Dermatology in [place], [place] M[facility]visDElvis [address] [facility] [address] [place] [address] [place], [place] [phone] (Wo rk) Social History Tobacco Use Types [...] or relatives? How often do you attend methodist or voodoo Patient refused 01/09/2022 services? Do you belong to any clubs or organizations Yes 01/09/2022 such as methodist groups, unions, fraternal or athletic groups, or [...]
--- OUTSIDE RECORDS SUMMARY | 2022-02-21 09:17 | XMS_ITS | Encounter Summary ---
:1955 Author Organization [facility] Address [address] [place] [address] Care Team Providers Name Role Phone Unavailable Primary Care Provider Unavailable Encounter Details Date Type Department Care Team Description 03/09/2009 - Hospital Encounter HX RST BREAST Valeria Capellan M.D. 10/07/2009 [address] [place] [address] (Wo rk) Social History Tobacco Use Types [...] How often do you attend yarsani or orthodox Patient refused 01/09/2022 services? Do you belong [...] ts for this CONTRAST WITH 3D AM NURSE ADMINISTRATOR procedure a re in DEPENDENT WORKSTATION the re sults section. BI ULTRASOUND EXAM Routine 03/09/2009 1:24 PM Res ults for this CDT procedure are i n the results section. documented in this encounter Results CT Urogram with IV Contrast with 3D Dependent Workstation (07/13/2009 11:33 AM NURSE ADMINISTRATOR) Anatomical Region Laterality Modality Abdomen, Pelvis Computed Tomography Specimen (Source) Anatomical Collection Method Collection Time Re ceived Time Location / / Volume Laterality 07/13/2009 11:33 AM NURSE ADMINISTRATOR Narrative 07/13/2009 11:54 AM NURSE ADMINISTRATOR 13-Jul-2009 11:33:00 ??Exam: CT Urogram w 3D [...] ?? [id number] ?? Electronically signed by: ?? B Joce CANO [id number] 13-Jul-2009 11:54 ?Naoki Stacy MD [phone] 13-Jul-2009 11:54 Procedure Note [...] [email or web address] Electronically signed [place]: [place] [id number] [id number] 13-Jul-2009 11:54 Jose Kumar MD [phone] [...]
--- OUTSIDE RECORDS SUMMARY | 2022-02-21 09:17 | XMS_ITS | Encounter Summary ---
:1955 Author Organization [facility] Address [address] [place] [address] Care Team Providers Name Role Phone Unavailable Primary Care Provider Unavailable Reason for Referral Outpatient (Routine) - Closed Specialty Diagnoses / Procedures Referred By Contact Refer red To Contact Dermatology Diagnoses Psoriasis Marilu Majano M.D. [facility] 200 [place], [place] [address] Referral ID Status Reason Start Date Expiration Date Visits Requ ested Visits Authorized [id number] Closed 11/12/2021 11/12/2022 1 1 Scheduling Instructions Psoriasis follow up utpatient (Routine) - Closed Specialty Diagnoses / Procedures Referred By Contact Refer red To Contact Diagnoses Psoriasis Marilu Majano M.D. [facility] Procedures DX Hand Bilateral 2 Views and Wrist Bilateral 2 Views 200 [place], [place] [phone] Referral ID Status Reason Start Date Expiration Date Visits Requ ested Visits Authorized [id number] Closed 11/12/2021 11/12/2022 1 1 utpatient (Routine) - Closed Specialty Diagnoses / Procedures Referred By Contact Refer red To Contact Diagnoses Psoriasis Marilu Majano M.D. [facility] Procedures DX Foot Ankle Bilateral 3+ Views 200 [place], [place] [phone] Referral ID Status Reason Start Date Expiration Date Visits Requ ested Visits Authorized [id number] Closed 11/12/2021 11/12/2022 1 1 Reason for Visit Outpatient (Routine) - Closed Specialty Diagnoses / Procedures Referred By Contact Refer red To Contact Dermatology Diagnoses Psoriasis aHnsa Doty M.D. [address] [address] Referral ID Status Reason Start Date Expiration Date Visits Requ ested Visits Authorized [id number] Closed 11/07/2021 11/07/2022 1 1 Encounter Details Date Type Department Care Team Description 11/12/2021 Comprehensive Visit Department of Marilu Majano Psori asis (Primary Dx); Dermatology in [place] Dermatitis Psoriasiform; [place], [place] [address] [facility] Dermatitis Asteatotic Xerotic; [address] [place], [place] [phone] [phone] Social History Tobacco Use Types Packs/Day Years [...] or relatives? How often do you attend synagogue or bahai Patient refused 01/09/2022 services? Do you belong to any clubs or organizations Yes 01/09/2022 such as synagogue groups, unions, fraternal or athletic groups, or [...] PM CDT Correspondence to Hansa Underwood M.D. [address] [place] [address] CHIEF COMPLAINT / REASON FOR VISIT Psoriasis HISTORY OF PRESENT ILLNESS Ms. Brittaney Anguiano TRACI Roland is a 66 y.o. female who presents today for the above. She was last seen in Dermatology at [facility] in 2012. She reports she has had a skin biopsy at outside institution, butnot sure what it showed. She has not had biopsies at [facility]. She also has a history of Crohn's [...] She will be meeting with GI at [facility] after several years in December 2021, and [...] in this encounter Plan of Treatment Scheduled Referrals [...] Marilu Majano M.D. [facility] DX Foot Ankle Bilateral 3+ Views (11/12/2021 [...]
--- OUTSIDE RECORDS SUMMARY | 2022-02-21 09:17 | XMS_ITS | Encounter Summary ---
:1955 Author Organization [facility] Address [address] [place] [address] Care Team Providers Name Role Phone Unavailable Primary Care Provider Unavailable Encounter Details Date Type Department Care Team Description 02/08/2022 Orders Only Department of Dermatology in Marilu Riggins M.D. [place], [place] [address] [facility] [address] [place] [phone] (Wo rk) Social History Tobacco Use Types [...] How often do you attend synagogue or orthodox Patient refused 01/09/2022 services? Do [...] or slept in a long-term (including now)? Education Answer Date Recorded What [...]
--- OUTSIDE RECORDS SUMMARY | 2022-02-21 09:17 | XMS_ITS | Encounter Summary ---
:1955 Author Organization [facility] Address [address] [place] [address] Care Team Providers Name Role Phone Unavailable Primary Care Provider Unavailable Encounter Details Date Type Department Care Team Description 02/12/2022 Orders Only Pharmacy Prior Auth Kenia Solomon [phone] Social History Tobacco Use Types Packs/Day Years [...] or relatives? How often do you attend buddhism or methodist Patient refused 01/09/2022 services? Do you belong to any clubs or organizations Yes 01/09/2022 such as buddhism groups, unions, fraternal or athletic groups, or [...] or slept in a [facility] (including now)? Education Answer Date Recorded What [...]
--- OUTSIDE RECORDS SUMMARY | 2022-02-21 09:17 | XMS_ITS | Encounter Summary ---
:1955 Author Organization [facility] Address [address] [place] [address] Care Team Providers Name Role Phone Unavailable [...] or relatives? How often do you attend mandaeism or jewish Patient refused 01/09/2022 services? Do you belong to any clubs or organizations Yes 01/09/2022 such as mandaeism groups, unions, fraternal or athletic groups, or [...] Resu lts for this SURGERY IMAGE EXAM LINUX DEVOPS ENGINEER procedure are in the results section. documented in this encounter Results PLASTIC AND RECON SURGERY IMAGE EXAM (08/24/2009 4:35 AM LINUX DEVOPS ENGINEER) Specimen (Source) Anatomical Location Collection Method / [...]
--- OUTSIDE RECORDS SUMMARY | 2022-02-21 09:17 | XMS_ITS | Encounter Summary ---
:1955 Author Organization [facility] Address [address] [place] [address] Care Team Providers Name Role Phone Unavailable [...] How often do you attend mormonism or sikh Patient refused 01/09/2022 services? Do [...] place to sleep or slept in a [place] (including now)? Sex Assigned at Date Recorded [...] 6:17 PM CDT documented in this encounter Medications at Time of Discharge Medication Sig Dispensed Refills Start Date End Date inFLIXimab (REMICADE) 10 Infuse into a venous 0 1 mg/mL injection catheter. sertraline (Zoloft) 100 mg Take 1 tablet by 0 tablet mouth every morning. sertraline (Zoloft) 50 mg Take 1 tablet by 0 03/24 tablet mouth every morning. documented as of this encounter Plan of Treatment Not on filedocumented as of this encounter Visit Diagnoses Not on filedocumented in this encounter
--- OUTSIDE RECORDS SUMMARY | 2022-02-21 09:17 | XMS_ITS | Encounter Summary ---
:[address] [facility] Address [address] [place] [address] Care Team Providers Name Role Phone Unavailable Primary Care Provider Unavailable Encounter Details Date Type Department Care Team Description 02/08/2022 Ancillary Procedure Department of Dermatology Social History [...] or relatives? How often do you attend restorationist or pentecostalism Patient refused 01/09/2022 services? Do you belong to any clubs or organizations Yes 01/09/2022 such as restorationist groups, unions, fraternal or athletic groups, or [...] or slept in a correction (including now)? Education Answer Date Recorded What [...] Date/Time Associated Comments Diagnosis DERMATOLOGY IMAGE Routine 02/08/2022 12:00 Result s for this EXAM AM CDT procedure are i n the results section. documented in this encounter Results [facility] Image Exam (02/08/2022 12:00 AM CDT) Specimen (Source) Anatomical Location Collection Method / Collectio n Time Received Time / Laterality Volume Narrative IIMS - 02/08/2022 4:39 PM CDT This order has been created [...]
--- OUTSIDE RECORDS SUMMARY | 2022-02-21 09:17 | XMS_ITS | Encounter Summary ---
:1955 Author Organization [facility] Address [address] [place] [address] Care Team Providers Name Role Phone Unavailable [...] or relatives? How often do you attend mosque or tenriism Patient refused 01/09/2022 services? Do you belong to any clubs or organizations Yes 01/09/2022 such as mosque groups, unions, fraternal or athletic groups, or [...]
--- OUTSIDE RECORDS SUMMARY | 2022-02-21 09:17 | XMS_ITS | Encounter Summary ---
:1955 Author Organization [facility] Address [address] [place] [address] Care Team Providers Name Role Phone Unavailable [...] How often do you attend orthodox or buddhist Patient refused 01/09/2022 services? Do [...]
--- OUTSIDE RECORDS SUMMARY | 2022-02-21 09:17 | XMS_ITS | Encounter Summary ---
:1955 Author Organization [facility] Address [address] [place] [address] Care Team Providers Name Role Phone Unavailable Primary Care Provider Unavailable Reason for Visit Reason Comments Pre-visit Intake Encounter Details Date Type Department Care Team Description 01/14/2022 Clinical Communication Visit Review in Pr e-visit Intake [place], [place] [address] [place], [place] [address] Social History Tobacco Use Types Packs/Day Years [...] or relatives? How often do you attend religion or pentecostalism Patient refused 01/09/2022 services? Do you belong to any clubs or organizations Yes 01/09/2022 such as religion groups, unions, fraternal or athletic groups, or [...] a [place] (including now)? Education Answer Date Recorded What [...]
--- OUTSIDE RECORDS SUMMARY | 2022-02-21 09:17 | XMS_ITS | Encounter Summary ---
:1955 Author Organization [facility] Address [address] [place] [address] Care Team Providers Name Role Phone Unavailable [...] or relatives? How often do you attend latter day or presybeterian Patient refused 01/09/2022 services? Do you belong to any clubs or organizations Yes 01/09/2022 such as latter day groups, unions, fraternal or athletic groups, or [...] Associated Comments Diagnosis DERMATOLOGY IMAGE Routine 02/08/2022 12:10 Result s for this EXAM AM CDT procedure are i n the results section. documented in this encounter Results [facility] Image Exam (02/08/2022 12:10 AM CDT) Specimen (Source) Anatomical Location Collection [...]
--- OUTSIDE RECORDS SUMMARY | 2022-02-21 09:17 | XMS_ITS | Encounter Summary ---
:1955 Author Organization [facility] Address [address] [place] [address] Care Team Providers Name Role Phone Unavailable Primary Care Provider Unavailable Encounter Details Date Type Department Care Team Description 01/12/2009 - Hospital Encounter HX RST BREAST Valeria Capellan M.D. 10/07/2009 [address] [place] [address] (Wo rk) Social History Tobacco Use Types [...] How often do you attend hinduism or jew Patient refused 01/09/2022 services? Do [...]
--- OUTSIDE RECORDS SUMMARY | 2022-02-21 09:17 | XMS_ITS | Encounter Summary ---
:1955 Author Organization [facility] Address [address] [place] [address] Care Team Providers Name Role Phone Unavailable Primary Care Provider Unavailable Reason for Referral Outpatient (Routine) - Authorized Specialty Diagnoses / Procedures Referred By Contact Refer red To Contact Dermatology Diagnoses Dermatitis Asteatotic Xerotic Marilu Majano M.D. [address] [phone] Referral ID Status Reason Start Date Expiration Date Visits V isits Requested Authorized [id number] Authorized 02/08/2022 02/07/2025 1 1 Scheduling Instructions 3-4 months. Asteatotic dermatitis with Ron Majano edication Prior Authorization - Authorized Specialty Diagnoses / Procedures Referred By Contact Refer red To Contact Diagnoses Dermatitis Asteatotic Xerotic Marilu Majano M.D. [address] [place] [phone] Referral ID Status Reason Start Date Expiration Date Visits V isits Requested Authorized [id number] Authorized 06/23/2021 06/22/2022 1 1 Reason for Visit Outpatient (Routine) - Closed Specialty Diagnoses / Procedures Referred By Contact Refer red To Contact Dermatology Diagnoses Psoriasis Marilu Majano M.D. [address] [phone] Referral ID Status Reason Start Date Expiration Date Visits Requ ested Visits Authorized [id number] Closed 11/12/2021 11/12/2022 1 1 Encounter Details Date Type Department Care Team Description 02/08/2022 Office Visit Department of [facility]le[facility]io, Marilu Ellis, Dermatitis A steatotic Xerotic (Primary Dx); Dermatology in [place] Furunculosis; [place], [place] [address] [facility] Keratosis Seborrheic Inflamed [address] [place] [phone] Social History Tobacco Use Types Packs/Day Years [...] How often do you attend evangelical or confucianism Patient refused 01/09/2022 services? Do [...] or slept in a custodial (including now)? Education Answer Date Recorded What is the highest level of school Bachelor's degree (e.g., BA, AB, 01/09/2022 you have completed or the highest BS) degree you have received? Sex Assigned at Date Recorded Female 01/09/2022 4:35 PM CDT documented as of this encounter Progress Notes Shawnee Amaral M.D. - 02/08/2022 11:00 AM CDT REFERRAL: Marilu Majano M.D. [address] [place] [address] Correspondence to: Marilu Majano M.D. Supervised by: Marilu Majano M.D. Patient seen and discussed with supervising teamcenter consultant, who evaluated the patient and concurs with the assessment and plan. 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 She was last seen in our department 11/12. 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 Home medications included Remicade for Crohn's disease and we recommended discussing risks and benefits of switching to Stelara with [facility]. Patient has upcoming appointment on 02/13. In the meantime recommended topical treatment with triamcinolone 0.1% cream b.I.d. under wet wrapocclusion, followed by triamcinolone under wet wraps in the morning and Lidex ointment in the evening, followed by Lidex ointment b.I.d., followed by Dovonex ointment b.I.d. Friday through Friday and topical steroid of her choice daily on the weekends. She was also noted to have polyarticular small joint pain. Subsequent x-ray was negative for inflammatory arthritis and we recommended that she undergo evaluation with her primary care provider for likely osteoarthritis. Today, the patient states that she does believe the rash is overall improved. Though she does continue to endorse significantly dry skin. She reports almost complete skin clearance after 2 weeks of triamcinolone cream under wet wraps. She has since been alternating between triamcinolone cream and Lidex ointment daily to b.I.d. to areas with active rash particularly on the abdomen. She was not able toobtain Dovonex ointment due to lack of insurance coverage. She denies dry itchy scalp. She does not showers a few times a week and she does not moisturize throughout the day. She also reports raised lesions on the neck and right forearm that tend to get caught on necklaces and clothing. She also reports 5+ year history of recurrent tender boils along the inguinal folds. OBJECTIVE PHYSICAL EXAM General: Well appearing female in no acute distress and with appropriate affect. Skin: Full skin examination of the scalp, face, neck, chest, abdomen, back, upper extremities, lowerextremities, the digits and nails, suprapubic area, and buttocks was performed per patient request. Garcia type 2 skin with generalized xerosis with dry riverbed erythematous scaly patches. Scattered on the proximal thighs, lower abdomen, breasts with fewer lesions on the distal lower extremitiesand upper arms are round erythematous papules with overlying white scale. Linear striae on lower abdomen and breast. No nail changes. Waxy, stuck on appearing rush to brown papules on the upper extremities and anterior neck with erythematous base. Mouth: No tongue changes. ASSESSMENT / PLAN #1 Asteatotic dermatitis Exam today more favors asteatotic dermatitis rather than psoriasiform dermatitis. We discussed the etiology, pathogenesis, and natural course of asteatotic dermatitis. We discussed and provided literature regarding the importance of moisturization to improve this skin condition. We encouraged her to use a thick, fragrance free moisturizer (ie. Vanicream, Cerave) 5 times a day. She does have active rash with signs of topical steroid overuse, therefore would like her to stop regular application of topical triamcinolone cream and lidex ointment and transition to nonsteroidal anti-inflammatory agents. We propose to different treatment plans. She can apply 2.5% hydrocortisone ointment and Protopic 0.1%ointment b.i.d. for 2 weeks (apply hydrocortisone first let sit for 10 minutes and then follow with Protopic) and then transition to Protopic ointment alone b.i.d. continuously thereafter. Or if she would rather use a single agent she can apply ruxolitinib 1.5% cream b.i.d. continuously. We discussed the risk and benefits of these medications. Since they are not steroids they are safe to apply throughout the body even in sensitive areas continuously and will not worsen her history or cause skin atrophy. Ruxolitinib has the additional benefit of not causing a burning sensation with application. She will reserve topical triamcinolone for severe flares. Patient is in agreement with this plan. #2 Inflamed seborrheic keratosis The benign nature of this lesion(s) was discussed with the patient. Given the inflamed nature of this lesion(s), its treatment is medically indicated. We treated a total of 3 lesion(s) with one 20-second freeze-thaw cycle of liquid nitrogen cryotherapy. The patient tolerated the procedure well. Aftercare instructions were provided in written and verbal form to the patient. Should any of these lesionsrecur, the patient should return for further evaluation. #3 Recurrent furunculosis Patient reports history of tender recurrent boils in the inguinal folds suspicious for furunculosis.There are not active lesions on exam today. Exam is also negative for scarring and given patient's age we have low suspicion for hidradenitis suppurativa. Recommend that she cleanse the affected areas with OTC BPO wash for maintenance and apply clindamycin 1% lotion daily when active lesions present. If she has a severe flare she will notify us and we will consider short course of PO abx. Patient will return for follow-up in 3-4 months. PATIENT EDUCATION Ready to learn. No apparent learning barriers were identified. Learning preferences include listening. Explained diagnosis and treatment plan; patient/guardian of patient expressed understanding of thecontent. Associated attestation - Marilu Majano M.D. - 02/08/2022 12:49 PM CDT I saw and evaluated the patient, participating in the hickman portions of the service. I reviewed resident's note, and I agree with the findings and plan. I was present for the critical portion and immediately available for the entire procedure. When I initially saw the patient, she had psoriasiform plaques, and I wondered if it could be related to her TNF alpha inhibitor since they can sometimes trigger or paradoxically worsen a psoriasiform rash. However, now all of those have cleared and instead I appreciate asteatotic dermatitis, which aswe discussed is essentially eczema related to dry skin. It is hard for me to say if the TNF alpha inhibitor is contributing to this or not (since TNF alpha inhibitors have also been reported to induce eczematous skin rashes as well), but since it is working well for her bowels, I am not sure that the benefits outweigh the risks of switching. She does have some striae of her abdomen so I would like toswitch to a steroid sparing agent, either ruxolitinib topically or Protopic, whichever is covered better by her insurance. We also discussed moisturization as an important maintenance treatment to prevent flares. documented in this encounter Plan of Treatment Scheduled Referrals Name Type Priority Associated Order Schedule Diagnoses Dermatology office Outpatient Referral Routine Dermatitis Ex pected: visit (clinic) Asteatotic Xerotic 022 (Approximate), Expires: 05/11/2023 documented as of this encounter Visit Diagnoses Diagnosis Dermatitis Asteatotic Xerotic - Primary Furunculosis Keratosis Seborrheic Inflamed documented in this encounter
--- OUTSIDE RECORDS SUMMARY | 2022-02-21 09:17 | XMS_ITS | Encounter Summary ---
:1955 Author Organization [facility] Address [address] [place] [address] Care Team Providers Name Role Phone Unavailable [...] How often do you attend denominational or druze Patient refused 01/09/2022 services? Do you belong [...] Associated Comments Diagnosis DERMATOLOGY IMAGE Routine 02/08/2022 12:05 Result s for this EXAM AM CDT procedure are i n the results section. documented in this encounter Results [facility]Dermat[facility] Image Exam (02/08/2022 12:05 AM CDT) Specimen (Source) Anatomical Location Collection Method / Collectio n Time Received Time / Laterality Volume Narrative [facility] - 02/08/2022 4:40 PM CDT This order has been created [...]
--- OUTSIDE RECORDS SUMMARY | 2022-02-21 09:17 | XMS_ITS | Encounter Summary ---
:1955 Author Organization [facility] Address [address] [place] [address] Care Team Providers Name Role Phone Unavailable [...] or relatives? How often do you attend voodoo or oriental orthodox Patient refused 01/09/2022 services? Do you belong to any clubs or organizations Yes 01/09/2022 such as voodoo groups, unions, fraternal or athletic groups, or [...]
--- OUTSIDE RECORDS SUMMARY | 2022-02-21 09:18 | XMS_ITS | Encounter Summary ---
:1955 Author Organization [facility] Address [address] [place] [address] Care Team Providers Name Role Phone Unavailable [...] How often do you attend pentecostalism or yazdanism Patient refused 01/09/2022 services? Do [...]
--- OUTSIDE RECORDS SUMMARY | 2022-02-21 09:18 | XMS_ITS | Encounter Summary ---
:1955 Author Organization [facility] Address [address] [place] [address] Care Team Providers Name Role Phone Unavailable Primary Care Provider Unavailable Encounter Details Date Type Department Care Team Description 05/20/2008 Hospital Encounter [facility] IN[facility]OBSRV Kala Mast M.D. [address] [place], [place] [address] (Wo rk) Social History [...] How often do you attend caodaism or sikh Patient refused 01/09/2022 services? Do [...]
--- OUTSIDE RECORDS SUMMARY | 2022-02-21 09:18 | XMS_ITS | Encounter Summary ---
:1955 Author Organization [facility] Address [address] [place] [address] Care Team Providers Name Role Phone Unavailable Primary Care Provider Unavailable Encounter Details Date Type Department Care Team Description 11/10/2008 Hospital Encounter [facility] INPT/OBSRV Kala Mast M.D. [address] [place] [address] (Wo rk) Social History [...] How often do you attend mosque or jew Patient refused 01/09/2022 services? Do [...]
--- OUTSIDE RECORDS SUMMARY | 2022-02-21 09:18 | XMS_ITS | Encounter Summary ---
:1955 Author Organization [facility] Address [address] [place] [address] Care Team Providers Name Role Phone Unavailable Primary Care Provider Unavailable Encounter Details Date Type Department Care Team Description 06/09/2008 Hospital Encounter [facility] IN[facility]OBSRV Kala Mast M.D. [address] [place], [place] [address] (Wo rk) Social History [...] or relatives? How often do you attend confucianist or orthodoxy Patient refused 01/09/2022 services? Do you belong to any clubs or organizations Yes 01/09/2022 such as confucianist groups, unions, fraternal or athletic groups, or [...]
--- OUTSIDE RECORDS SUMMARY | 2022-02-21 09:18 | XMS_ITS | Encounter Summary ---
:1955 Author Organization [facility] Address [address] [place] [address] Care Team Providers Name Role Phone Unavailable Primary Care Provider Unavailable Encounter Details Date Type Department Care Team Description 12/08/2008 Hospital Encounter [facility] INPT[facility]OBSRV Kala Mast M.D. [address] [place], [place] [address] (Wo rk) Social History [...] How often do you attend episcopalian or gnosticism Patient refused 01/09/2022 services? Do you belong [...]
--- OUTSIDE RECORDS SUMMARY | 2022-02-21 09:18 | XMS_ITS | Encounter Summary ---
:1955 Author Organization [facility] Address [address] [place] [address] Care Team Providers Name Role Phone Unavailable [...] often do you attend latter day or restorationism Patient refused 01/09/2022 services? Do [...]
--- OUTSIDE RECORDS SUMMARY | 2022-02-21 09:18 | XMS_ITS | Encounter Summary ---
:1955 Author Organization [facility] Address [address] [place] [address] Care Team Providers Name Role Phone Unavailable Primary Care Provider Unavailable Encounter Details Date Type Department Care Team Description 04/01/2008 Hospital Encounter [facility] INPT/OBSRV Kala Mast M.D. [address] [place], [place] [address] (Wo rk) Social History [...] or relatives? How often do you attend restorationism or baptist Patient refused 01/09/2022 services? Do you belong to any clubs or organizations Yes 01/09/2022 such as restorationism groups, unions, fraternal or athletic groups, or [...]
--- OUTSIDE RECORDS SUMMARY | 2022-02-21 09:18 | XMS_ITS | Encounter Summary ---
:1955 Author Organization [facility] Address [address] [place] [address] Care Team Providers Name Role Phone Unavailable Primary Care Provider Unavailable Encounter Details Date Type Department Care Team Description 08/25/[address] [facility] INPT/OBSRV Kala Mast M.D. [address] [place], [place] [address] (Wo rk) Social History [...] How often do you attend episcopalian or jehovah's witness Patient refused 01/09/2022 services? [...]
--- OUTSIDE RECORDS SUMMARY | 2022-02-21 09:18 | XMS_ITS | Encounter Summary ---
:1955 Author Organization [facility] Address [address] [place] [address] Care Team Providers Name Role Phone Unavailable [...] or relatives? How often do you attend yazidi or yazdanism Patient refused 01/09/2022 services? Do you belong to any clubs or organizations Yes 01/09/2022 such as yazidi groups, unions, fraternal or athletic groups, or [...]
--- OUTSIDE RECORDS SUMMARY | 2022-02-21 09:18 | XMS_ITS | Encounter Summary ---
:1955 Author Organization [facility] Address [address] [place] [address] Care Team Providers Name Role Phone Unavailable Primary Care Provider Unavailable Encounter Details Date Type Department Care Team Description 12/02/2008 Hospital Encounter [facility] INPT/OBSRV Kala Mast M.D. [address] [place], [place] [address] (Wo rk) Social History [...] How often do you attend islam or synagogue Patient refused 01/09/2022 services? Do you belong [...]
--- OUTSIDE RECORDS SUMMARY | 2022-02-21 09:18 | XMS_ITS | Encounter Summary ---
:1955 Author Organization [facility] Address [address] [place] [address] Care Team Providers Name Role Phone Unavailable Primary Care Provider Unavailable Encounter Details Date Type Department Care Team Description 06/30/2008 Hospital Encounter [facility] INPT/OBSRV Kala Mast M.D. [address] [place], [place] [address] (Wo rk) Social History [...] How often do you attend synagogue or restorationism Patient refused 01/09/2022 services? Do [...]
--- OUTSIDE RECORDS SUMMARY | 2022-02-21 09:18 | XMS_ITS | Encounter Summary ---
:1955 Author Organization [facility] Address [address] [place] [address] Care Team Providers Name Role Phone Unavailable Primary Care Provider Unavailable Encounter Details Date Type Department Care Team Description 05/16/2008 Hospital Encounter [facility] INPT/OBSRV Irene Mahoney M.D. [address] [place] [address] (Wo rk) Social History Tobacco Use Types [...] How often do you attend rastafarian or mormonism Patient refused 01/09/2022 services? Do you belong [...]
--- OUTSIDE RECORDS SUMMARY | 2022-02-21 09:18 | XMS_ITS | Encounter Summary ---
:1955 Author Organization [facility] Address [address] [place] [address] Care Team Providers Name Role Phone Unavailable Primary Care Provider Unavailable Encounter Details Date Type Department Care Team Description 07/13/2008 Hospital Encounter [facility] INPT/OBSRV Kala Mast M.D. [address] [place], [place] [address] (Wo rk) Social History [...] How often do you attend methodist or christian Patient refused 01/09/2022 services? Do you belong [...]
--- OUTSIDE RECORDS SUMMARY | 2022-02-21 09:18 | XMS_ITS | Encounter Summary ---
:1955 Author Organization [facility] Address [address] [place] [address] Care Team Providers Name Role Phone Unavailable Primary Care Provider Unavailable Encounter Details Date Type Department Care Team Description 04/29/2008 Hospital Encounter [facility] INPT/OBSRV Kala Mast M.D. [address] [place], [place] [address] (Wo rk) Social History [...] How often do you attend episcopalian or mosque Patient refused 01/09/2022 services? Do you belong [...]
--- OUTSIDE RECORDS SUMMARY | 2022-02-21 09:18 | XMS_ITS | Encounter Summary ---
:1955 Author Organization [facility] Address [address] [place] [address] Care Team Providers Name Role Phone Unavailable Primary Care Provider Unavailable Encounter Details Date Type Department Care Team Description 08/25/2008 Hospital Encounter [facility] IN[facility]OBSRV Kala Mast M.D. [address] [place], [place] [address] (Wo rk) Social History [...] How often do you attend sikh or amish Patient refused 01/09/2022 services? Do you belong [...]
--- OUTSIDE RECORDS SUMMARY | 2022-02-21 09:18 | XMS_ITS | Encounter Summary ---
:1955 Author Organization [facility] Address [address] [place] [address] Care Team Providers Name Role Phone Unavailable Primary Care Provider Unavailable Encounter Details Date Type Department Care Team Description 05/16/[address] [facility] IN[facility]OBSRV Kala Mast M.D. [address] [place], [place] [address] (Wo rk) Social History [...] or relatives? How often do you attend sabianist or mandaeism Patient refused 01/09/2022 services? Do you belong to any clubs or organizations Yes 01/09/2022 such as sabianist groups, unions, fraternal or athletic groups, or [...]
--- OUTSIDE RECORDS SUMMARY | 2022-02-21 09:18 | XMS_ITS | Encounter Summary ---
:1955 Author Organization [facility] Address [address] [place] [address] Care Team Providers Name Role Phone Unavailable Primary Care Provider Unavailable Encounter Details Date Type Department Care Team Description 06/02/2008 Hospital Encounter [facility] INPT[facility]BS[facility] Kala Mast M.D. [address] [place], [place] [address] (Wo rk) Social History [...] How often do you attend samaritan or cheondoism Patient refused 01/09/2022 services? Do [...]
--- OUTSIDE RECORDS SUMMARY | 2022-02-21 09:18 | XMS_ITS | Encounter Summary ---
:1955 Author Organization [facility] Address [address] [place] [address] Care Team Providers Name Role Phone Unavailable [...] or relatives? How often do you attend bahai or denominational Patient refused 01/09/2022 services? Do you belong to any clubs or organizations Yes 01/09/2022 such as bahai groups, unions, fraternal or athletic groups, or [...]
--- OUTSIDE RECORDS SUMMARY | 2022-02-21 09:18 | XMS_ITS | Encounter Summary ---
:1955 Author Organization [facility] Address [address] [place] [address] Care Team Providers Name Role Phone Unavailable Primary Care Provider Unavailable Encounter Details Date Type Department Care Team Description 11/02/2008 Hospital Encounter [facility] IN[facility]/OBSRV Kala Mast M.D. [address] [place], [place] [address] (Wo rk) Social History [...] How often do you attend methodist or worship Patient refused 01/09/2022 services? Do [...]
--- OUTSIDE RECORDS SUMMARY | 2022-02-21 09:18 | XMS_ITS | Encounter Summary ---
:1955 Author Organization [facility] Address [address] [place] [address] Care Team Providers Name Role Phone Unavailable Primary Care Provider Unavailable Encounter Details Date Type Department Care Team Description 09/30/2008 Hospital Encounter HX NO MAPPING Alan Simeon Phar m.D., R.Ph. [address] [place], [place] [phone] (Wo rk) Social History Tobacco Use Types [...] or relatives? How often do you attend anabaptism or confucianism Patient refused 01/09/2022 services? Do you belong to any clubs or organizations Yes 01/09/2022 such as anabaptism groups, unions, fraternal or athletic groups, or [...]
== END 2022-02-21 09:07 | disposition home or self-care (01) ==
LOC: US 09:11
PROVIDERS: PCP Internal Medicine; Visit Provider Obstetrics & Gynecology
DX: N95.0 Postmenopausal bleeding (principal)
CPT/HCPCS: 76830; 76856

== ENCOUNTER 2022-03-25 16:10 | Outpatient (CLI) | payer MEDICARE, BC, SELFPAY ==
--- OUTSIDE RECORDS SUMMARY | 2022-03-27 09:44 | XMS_ITS | Clinical Summary ---
:1955 Author Organization [employer] [facility] [place] [address] Care Team Providers Name Role Phone Hansa [...] (HC), Diarrhea, unspecified type, Periumbilical abdominal pain Cexu-Ibrjcwrhr-Gksrhg Apply topically to 0 7 Active xy-Aldiox [...] Encounters Date Type Specialty Care Team Description 03/27/2022 Telephone Marquis Hussein MD 03/13/2022 Lab Requisition Maribel Laugna MD 01/11/2022 Telephone Marquis Hussein MD Que stions (Remicade) from Last 3 Months Social History Tobacco [...] CDT Respiratory Rate 18 06/25/2021 11:15 AM [facility] [employer] Oxygen Saturation 96% 12/05/2021 1:46 PM CDT [...] (1 10/19/2019 - PCV) COVID-19 vaccine series (5 - 09/17/2021 07/23/2021, 021, Booster for Moderna series) 09/07/2020, Addition al history exists Influenza for age 65+ 02/21/2022 Colonoscopy through age 75 11/20/2023 11/19/2013 Procedures Procedure Name Priority Date/Time Associated Diagnosis Comme nts LAB TRACKING EVENT Routine 03/12/2022 12:00 PM CDT PATH TISSUE EXAM Routine 03/12/2022 12:00 PM Resu lts for this CDT procedure are i n the results section. from Last 3 Months Results LAB TRACKING EVENT (03/12/2022 12:00 PM CDT) Specimen Anatomical Collection Method Collection Time Receive d Time (Source) Location / / Volume Laterality Other (Other) Client Collect / 03/12/2022 12:00 2021 5:18 Unknown PM CDT PM CDT Maribel Laguna MD LAB BILL ONLY Performing Organization Address City/State/ZIP Code Phon e Number [employer] [address] [place] [address] LABORATORY-CENTRAL 2000 LABORATORY PATH TISSUE EXAM (03/12/2022 12:00 PM CDT) Component Value Ref Test Analysis Performed At [facility] gist Range Method Time Signature Case Report Pathology Report ?Case: [id number] ? 03/14/2022 AMAYA Authorizing Provider: ??Maribel Laguna MD ?? Collected: ? 03/12/2022 1200 ? 11:51 AM [facility] Ordering Location: ? [facility] CENTRAL LAB ?Received: ?03/13/2022 1753 ? CDT SHRUTI CHENC Pathologist: ? Kristine Marroquin MD ? ENTRAL Specimen: ?Endometrial B iopsy ? LABORATORY Final A) ENDOMETRIUM, BIOPSY: 03/14/2022 [facility] A Electronically Diagnosis 1. Scant atrophic endometrium 11:51 AM [facility] signed by Lopez, 2. Negative for hyperplasia, atypia, and malignancy in thi s sample CDT LABORATORY-C ASCENCION Downs MD on 03/14 LABORATORY at 11:51 AM Comment A) The specimen 03/14/2022 [facility] is scant. 11:51 AM [facility] However, atrophic CDT LABORATORY-C endometrium ENTRAL typically yields LABORATORY a scant specimen. If the clinical impression does not correlate with the histologic finding of endometrial atrophy, further endometrial tissue sampling is recommended as clinically indicated. Clinical Postmenopausal 03/14/2022 [facility] Information bleeding 11:51 AM HEALTH CDT LABORATORY-C ENTRAL LABORATORY Gross A) Received in formalin, lab eled with the patient's name and date of , is a 1.2 x 0.5 x 0.2 cm aggregate of pink-rush mucosa admixed with mucous. The specimen is entirely submitted in 1 cassette. 02/22 [facility] Description 11:51 AM [facility] LH 03/13/2022 CDT LABORATORY-C ENTRAL LABORATORY Microscopic The final 03/14/2022 [facility] Description diagnosis is 11:51 AM [facility] based on CDT LABORATORY-C microscopic ENTRAL examination of LABORATORY appropriate sections of all specimens. Additional 03/14/2022 [facility] Information Interpreted at [facility], Central Laboratory - [address], [place] [address] 11:51 AM [facility] CDT LABORATORY-C ENTRAL LABORATORY Specimen Anatomical Collection Method Collection Time Receive d Time (Source) Location / / Volume Laterality Other 03/12/2022 12:00 03/13/2022 5:53 (Endometrial PM CDT PM CDT Biopsy) Maribel Laguna MD PATHOLOGY/CYTOLOGY Performing Organization Address City/State/ZIP Code Phon e Number [employer] [address] [place] [address] LABORATORY-CENTRAL 2000 LABORATORY from Last 3 Months Insurance Payer Benefit Plan / Subscriber ID Effective Dates Phone Addre ss Type Group MEDICARE - PB MEDICARE PB [id number] 2019-Kwabena ATTN : CLAIMS USE ONLY ONLY t [address] [place] [address] BLUE CROSS BLUE CROSS OF [id number] 2019-Kwabena [address] [facility] [place] [address] [phone] [facility] (Home) TANESHA SEVILLA 5512 3 Care Teams Turntable Worker Relationship Specialty Start Date End Date Hansa Doty MD PCP - General Internal Medicine 07/15/161999 [place] [address]
--- OUTSIDE RECORDS SUMMARY | 2022-03-27 09:45 | XMS_ITS | Encounter Summary ---
:1955 Author Organization [facility] Address [address] [place] [address] Care Team Providers Name Role Phone Unavailable Primary Care Provider Unavailable Reason for Referral Outpatient (Routine) - Authorized Specialty Diagnoses / Referred By Referred To Cont act Procedures Contact Gastroenterology and Erica Nguyen [place] [facility] Hepatology Venkatesh [address] [place] [phone] Referral ID Status Reason Start Date Expiration Date Visits V isits Requested Authorized [id number] Authorized 02/13/2022 02/12/2025 1 1 Outpatient (Routine) - Authorized Specialty Diagnoses / Procedures Referred By Contact Refer red To Contact Obstetrics and Diagnoses Noninfective Gastroenteritis And Colitis Unspecified Crohn's Disease (HCC) Infection 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 [facility] Procedures Anorectal Manometry [address] [place] [address] Referral ID Status Reason Start Date Expiration Date Visits V isits Requested Authorized [id number] Authorized 02/13/2022 02/13/2023 1 1 MRI/CAT/PET Scan (Routine) - Authorized Specialty Diagnoses / Procedures Referred By Contact Refer red To Contact Radiology Diagnoses Noninfective Gastroenteritis And Colitis Unspecified Erica Nguyen M.D. [facility] Procedures CT Abdomen Pelvis Enterography with IV Contrast [address] [place] [address] Referral ID Status Reason Start Date Expiration Date Visits V isits Requested Authorized [id number] Authorized 02/13/2022 02/13/2023 1 1 Outpatient (Routine) - Authorized Specialty Diagnoses / Procedures Referred By Contact Refer red To Contact Diagnoses Crohn's Disease (HCC) Infection Urinary Tract Recurrent Erica Nguyen M.D. [facility] Procedures Colonoscopy [address] [place] [address] Referral ID Status Reason Start Date Expiration Date Visits V isits Requested Authorized [id number] Authorized 02/13/2022 02/13/2023 1 1 Reason for Visit Appointment Request (Routine) - Closed Specialty Diagnoses / Referred By Contact Referred To Procedures Contact Gastroenterology and Diagnoses Crohn's Disease (HCC) Hepatology Referral ID Status Reason Start Date Expiration Date Visits Requ ested Visits Authorized [id number] Closed 11/02/2021 11/02/2022 1 1 Encounter Details Date Type Department Care Team Description 02/13/2022 Comprehensive Visit Division of Patrick, Crohn's Disease (HCC) (Primary Dx); Gastroenterology in Erica Alexander Noninfec tive Gastroenteritis And Colitis Unspecified; [place], [place] Venkatesh Infection Urinary Tract Recurrent; [address] Prolapse Rectal; [facility] Pelvic Floor Tension; [phone] [place], Abnormal Uterine And Vaginal Bleeding Unspecified [phone] [place] [phone] Social History Tobacco Use Types Packs/Day Years [...] or relatives? How often do you attend sikhism or spiritism Patient refused 01/09/2022 services? Do you belong to any clubs or organizations Yes 01/09/2022 such as sikhism groups, unions, fraternal or athletic groups, or [...] place to sleep or slept in a residential (including now)? Education Answer Date Recorded What [...] getting her infusions through Dr[facility] Paz at [facility]. From a Crohn's disease perspective she feels [...] Encounters Date Type Specialty Care Team Description 05/22/2022 Clinical Communication Admitting/Central Scheduling 05/23/2022 Office Visit Dermatology Link, Marilu Ellis M.D. [address] [place] [address] Scheduled Orders Name Type Priority Associated Diagnoses Order S chedule Colonoscopy GI Routine Crohn's Disease (HCC) Expected: Infection Urinary 02/13/2022 Tract Recurrent (Approximate ), Expires: 05/16/2023 CT Abdomen Pelvis Imaging RAD - Routine Noninfective Expected: Enterography with IV (most inpatients Gastroenteritis And 02/13/2022 Contrast and all Colitis Unspecified (Approxi mate), outpatients) Expires: 05/16/2023 Anorectal Manometry GI Routine Noninfective Expected : Gastroenteritis And 02/14/20 22 Colitis Unspecif ied (Approximate), Crohn's Disease (HCC) Expires: Infection Urinary 05/16/2023 Tract Recurrent Prolapse Rectal Pelvic Floor Tension Enema Prep Procedures Routine Noninfective Expected: Gastroenteritis And 02/14/20 22 Colitis Unspecif ied (Approximate), Crohn's Disease (HCC) Expires: Infection Urinary 05/16/2023 Tract Recurrent Prolapse Rectal Pelvic Floor Tension Scheduled Referrals Name Type Priority Associated Diagnoses Order S chedule Obstetrics and Outpatient Routine Noninfective Expected: Gynecology - Referral Gastroenteritis And 02/14/20 22 Urogynecology consult Colitis Un specified (Approximate), (clinic) Crohn's Disease (HCC) Expires: Infection Urinary 05/16/2023 Tract Recurrent Prolapse Rectal Pelvic Floor [place] Abnormal Uterine And Vaginal Bleeding Unspecified Gastroenterology and Outpatient Routine 1 Occur [facility] Hepatology office Referral starting visit (clinic) 02/13/2022 un til 05/16/2023 documented as of this encounter Results Vitamin B12 Assay (02/13/2022 11:34 AM CDT) P athologist Signature Vitamin B12 [phone] 02/13/2022 DTL Assay, S ng/L 1:13 PM [...] M.D. LAB BLOOD ADD-ON Performing Organization Address City/[facility] Phon e Number [facility] - [address] [place], [place] [address] [place] [address] [facility] [place] [address] 25-Hydroxyvitamin D2 and D3 [...] and its performa nce characteristics determined by [facility] in a manner consistent with CLIA requirements. This test has not been cleared or approved by the [place] d and Drug Administration. Specimen Anatomical Collection Method Collection Time Receive d Time (Source) Location / / Volume Laterality Blood (Blood, 02/13/2022 11:34 02/14/2022 7:12 Venous) AM CDT AM CDT Erica Nguyen M.D. LAB BLOOD ADD-ON Performing Organization Address City/[facility] Phon e Number [facility] [address] [place], [place] [address] [facility] [place] [address] Laboratory Medicine and Pathology [address] [...] Organization Address City/State/ZIP Code Phon e Number [facility] - 200 [place], [place] [address] [facility] [place] [address] [facility] [place] [address] [facility] (ABNORMAL) CBC with Differential, Blood (02/13/2022 11:34 AM CDT) [facility] gist Method Time Signature Hemoglobin 12.4 11.6 [...] Organization Address City/State/ZIP Code Phon e Number [facility] - [address] [place], [place] [address] [facility] [address] [facility] [place] [address] documented in this encounter Visit Diagnoses Diagnosis Crohn's Disease (HCC) - Primary Noninfective Gastroenteritis And Colitis Unspecified Infection 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
--- OUTSIDE RECORDS SUMMARY | 2022-03-27 09:45 | XMS_ITS | Encounter Summary ---
:1955 Author Organization [facility] Address [address] [place] [address] Care Team Providers Name Role Phone Unavailable [...] or relatives? How often do you attend anabaptist or sikh Patient refused 01/09/2022 services? Do you belong to any clubs or organizations Yes 01/09/2022 such as anabaptist groups, unions, fraternal or athletic groups, or [...] or slept in a usp (including now)? Education Answer Date Recorded What [...] Dermatology Link, Marilu Ellis M.D. [address] [place] [address] documented as of this encounter Procedures Procedure [...]
--- OUTSIDE RECORDS SUMMARY | 2022-03-27 09:45 | XMS_ITS | Encounter Summary ---
:1955 Author Organization [facility] Address [address] [place] [address] Care Team Providers Name Role Phone Unavailable Primary Care Provider Unavailable Encounter Details Date Type Department Care Team Description 02/13/2022 Hospital Encounter Department of [facility], Noninfec tive Gastroenteritis And Colitis Unspecified; Laboratory Medicine Ana Craig Crohn's Disease (HCC); and Pathology, [address] [place] [address] Infection Urinary Tract Recurrent; [facility], in [place], [place] Prolaps e Rectal; [facility] [address] Pelvic Floor Tension; [place] [phone] Abnormal Uterine And Vaginal Bleeding Unspecified [address] [facility] (Work) [place], [place] [phone] [address] (Fax) [phone] Social History Tobacco Use Types Packs/Day Years [...] How often do you attend samaritan or confucianist Patient refused 01/09/2022 services? Do [...] or slept in a retirement (including now)? Education Answer Date Recorded What [...] Dermatology Link, Marilu Ellis M.D. [address] [place] [address] documented as of this encounter Procedures Procedure [...] 11:34 AM CDT) athologist Signature Vitamin B12 006 281 - 709 02/13/2022 DT Assay, S ng/L 1:13 PM CDT Comment: [...] City/State/ZIP Code Phon e Number [facility] - [address] [place], [place] [address] [facility] [place] [address] Laboratories-[facility] [address] 25-Hydroxyvitamin D2 and D3 (02/13/2022 11:34 AM CDT) athologist Signature 25-Hydroxy D2 <4.0 ng/mL [facility]2022 [facility] 25-Hydroxy D3 48 ng/mL 02/14/2022 [facility] 10:48 PM CDT 25-Hydroxy D 48 ng/mL 02/14/2022 [facility] Total 10:48 PM CDT Comment: ----REFERENCE VALUE---- [...] City/State/ZIP Code Phon e Number [facility] [address] [place], [place] [address] [facility] [place] [address] Laboratory Medicine and Pathology [address] [...] City/State/ZIP Code Phon e Number [facility] - [address] [place], [place] [address] [facility] [place] [address] [facility] [address] (ABNORMAL) CBC with Differential, Blood (02/13/2022 11:34 AM CDT) [facility] gist Method Time Signature Hemoglobin 12.4 11.6 [...] City/State/ZIP Code Phon e Number [facility] - [address] [place], [place] [address] [facility] [place] [address] [facility] [address] documented in this encounter Visit Diagnoses Diagnosis Noninfective Gastroenteritis And Colitis Unspecified Crohn's Disease (HCC) Infection 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
--- OUTSIDE RECORDS SUMMARY | 2022-03-27 09:45 | XMS_ITS | Encounter Summary ---
:1955 Author Organization [facility] Address [address] [place] [address] Care Team Providers Name Role Phone Unavailable Primary Care Provider Unavailable Encounter Details Date Type Department Care Team Description 11/16/2021 Orders Only Pharmacy Prior Auth Yadi Barbour [phone] Social History Tobacco Use Types Packs/Day Years [...] or relatives? How often do you attend congregational or methodist Patient refused 01/09/2022 services? Do you belong to any clubs or organizations Yes 01/09/2022 such as congregational groups, unions, fraternal or athletic groups, or [...] Communication Admitting/Central Scheduling 05/23/2022 Office Visit Dermatology Marilu Majano M.D. [address] [place] [phone] documented as of this encounter Visit Diagnoses Not on filedocumented in this encounter
--- OUTSIDE RECORDS SUMMARY | 2022-03-27 09:45 | XMS_ITS | Encounter Summary ---
:[address] [facility] Address [address] [place] [address] Care Team Providers Name Role Phone Unavailable Primary Care Provider Unavailable Encounter Details Date Type Department Care Team Description 11/26/2021 Orders Only Department of Dermatology in [place], [place] MElvisDElvis [address] [facility] [address] [place] [address] [place], [place] [phone] (Wo rk) Social History Tobacco Use Types [...] How often do you attend adventism or restorationism Patient refused 01/09/2022 services? Do [...] Dermatology Link, Marilu Ellis M.D. [address] [place] [address] documented as of this encounter Visit Diagnoses Not on filedocumented in this encounter
--- OUTSIDE RECORDS SUMMARY | 2022-03-27 09:45 | XMS_ITS | Encounter Summary ---
:1955 Author Organization [facility] Address [address] [place] [address] Care Team Providers Name Role Phone Unavailable Primary Care Provider Unavailable Reason for Visit Reason Comments Rx Prior Authorization DANNA DENIED - CALCIPOTRIENE 0. 005% OINTMENT Encounter Details Date Type Department Care Team Description 11/26/2021 Clinical Pharmacy Prior Car [facility] Prior Communication Auth [id number] Authorization (DANNA DENIED - CALCIPOTRIENE 0 .005% [...] How often do you attend sikh or druze Patient refused 01/09/2022 services? Do [...] Visit Dermatology Marilu Majano M.D. [address] [place] [address] documented as of this encounter Visit Diagnoses Not on filedocumented in this encounter
--- OUTSIDE RECORDS SUMMARY | 2022-03-27 09:45 | XMS_ITS | Encounter Summary ---
:1955 Author Organization [facility] Address [address] [place] [address] Care Team Providers Name Role Phone Unavailable [...] How often do you attend rastafarian or gnosticism Patient refused 01/09/2022 services? Do [...] Visit Dermatology Marilu Majano M.D. [address] [place] [address] documented as of this encounter Procedures Procedure [...]
--- OUTSIDE RECORDS SUMMARY | 2022-03-27 09:45 | XMS_ITS | Encounter Summary ---
:1955 Author Organization [facility] Address [address] [place] [address] Care Team Providers Name Role Phone Unavailable Primary Care Provider Unavailable Encounter Details Date Type Department Care Team Description 02/08/2022 Orders Only Department of Dermatology in Marilu Riggins M.D. [place], [place] [address] [facility] [address] [place] [phone] (Wo rk) Social History Tobacco Use Types [...] How often do you attend taoism or anabaptism Patient refused 01/09/2022 services? Do [...] Office Visit Dermatology Marilu Majano M.D. 200 [place] [address] documented as of this encounter Visit Diagnoses Not on filedocumented in this encounter
--- OUTSIDE RECORDS SUMMARY | 2022-03-27 09:45 | XMS_ITS | Clinical Summary ---
:1955 Author Organization [facility] Address [address] [place] [address] Care Team Providers Name Role Phone Unavailable Primary Care Provider Unavailable Source Comments Patient records contain information from all sites at [facility]. For routine questions regarding patient records, call [phone] during business hours, M-F 8:00 AM - 5:00 PM Central Time. Record requests for emergency care only can be directed to [phone] at any time.[facility] Allergies Active Allergy Reactions Severity Noted Date Comments Adalimumab Rash High 02/29/2016 Codeine Other (see comments), Nausea Only Low 008 Nausea Hydrochlorothiazide Rash High 04/29/2008 Rash Ibuprofen Other (see comments) 08/25/2016 Medications Medication Sig Dispensed Refills Start Date End Date Status tacrolimus (PROTOPIC) Apply 1 100 g 5 02/08/2022 Active 0.1 % application ointmentIndications: topically 2 (two) Dermatitis Asteatotic times a day. Apply Xerotic to rash. hydrocortisone 2.5 % Apply 1 454 g 3 02/08/2022 Active ointmentIndications: application Dermatitis Asteatotic topically 2 (two) Xerotic times a day. Apply to rash. ruxolitinib 1.5 % Apply 1 60 g 5 02/08/2022 A ctive creamIndications: application Dermatitis Asteatotic topically 2 (two) Xerotic times a day. Apply to rash. triamcinolone Apply 1 454 g 3 02/08/2022 Activ e (KENALOG) 0.1 % application creamIndications: topically 2 (two) Dermatitis Asteatotic times a day as Xerotic needed (Rash). Apply to affected areas twice a day under wet wraps. clindamycin (Cleocin Apply 1 60 mL 3 02/08/2022 Active T) 1 % application lotionIndications: topically daily. Furunculosis Apply to boil. simvastatin (ZOCOR) 40 Take 40 mg by 0 12/14/2021 Active mg tablet mouth daily. sertraline (Zoloft) Take 1 tablet by 0 04/17/2012 Active 100 mg tablet mouth every morning. sertraline (Zoloft) 50 Take 1 tablet by 0 04/17/2012 Active mg tablet mouth every morning. omeprazole (PriLOSEC) Take 40 mg by 0 12/14/[address] capsule mouth daily. docosahexaenoic Take 1 g by mouth. 0 Active acid-epa 120-180 mg capsule omega-3 acid ethyl Take 2 g by mouth. 0 09/18/2016 Active esters (LOVAZA) 1 gram capsule melatonin 5 mg tablet Take 1 tablet by 0 01/21/2013 Active mouth at bedtime as needed. lisinopriL Take 20 mg by 0 12/14/2021 Acti ve (PRINIVIL,ZESTRIL) 20 mouth daily. mg tablet inFLIXimab (REMICADE) Infuse into a 0 04/17/2012 Active 10 mg/mL injection venous catheter. furosemide (LASIX) 20 Take 20 mg by 0 12/14/2021 Active mg tablet mouth daily. cyanocobalamin Take 1 tablet by 0 09/18/2016 Active (VITAMIN B12) 1,000 mouth daily. mcg tablet cholecalciferol daily. 0 Acti ve (VITAMIN D3) 125 mcg (5,000 Unit) capsule aspirin [address] Take 81 mg by 0 09/18/2016 Active tablet mouth. acetaminophen Take 500 mg by 0 09/18/2016 Active (TYLENOL) 500 mg mouth as needed. tablet polyethylene Drink 1st portion 4000 mL 0 02/13/2022 Active glycol-electrolytes of prep at 6 PM (GoLYTELY) the evening 236-22.74-6.74 -5.86 before. 2nd gram solution portion must be started 3 hours before and finished 2 hours prior to report time Active Problems Problem Noted Date Crohn's Disease 02/29/2016 Encounters Date Type Specialty Care Team Description 02/13/2022 Hospital Encounter Laboratory Medicine Sara Nguyen ninfective Gastroenteritis And Colitis Unspecified; Erica Alexander, Crohn's Disease (HCC); Venkatesh Infection Urina ry Tract Recurrent; Prolapse Rectal ; Pelvic Floor Te nsion; Abnormal Uterin e And Vaginal Bleeding Unspecified 02/13/2022 Comprehensive Visit Gastroenterology and Patrick, Crohn's Disease (HCC) (Primary Dx); Hepatology Erica Alexander, Noninfective Ga stroenteritis And Colitis Unspecified; M.DElvis Infection Urina ry Tract Recurrent; Prolapse Rectal ; Pelvic Floor Te nsion; Abnormal Uterin e And Vaginal Bleeding Unspecified 02/12/2022 Orders Only Pharmacy Cherie, Kenia L 02/08/2022 Office Visit Dermatology Marilu Majano Dermatitis Aste atotic Xerotic (Primary Dx); Venkatesh Ellis Furunculosis; Keratosis Sebor rheic Inflamed 02/08/2022 Ancillary Procedure 02/08/2022 Ancillary Procedure 02/08/2022 Ancillary Procedure 02/08/2022 Orders Only Dermatology Marilu Majano M.D. 01/14/2022 Clinical Admitting/Central Pre-visit Intake Communication Scheduling from Last 3 Months Immunizations Name Administration [...] How often do you attend jain or mormonism Patient refused 01/09/2022 services? Do [...] 02/13/2022 10:07 AM CDT Plan of Treatment Upcoming Encounters Date Type Specialty Care Team Description 05/22/2022 Clinical Communication Admitting/Central Scheduling 05/23/2022 Office Visit Dermatology Marilu Majano M.D. [address] [place] [address] Health Maintenance Due Date Last Done Comments [...] Screen (Annual) 06/23/2021 COVID-19 Vaccine (5 - 09/17/2021 07/23/2021, 07/23/2021, Booster for Moderna series) 02/19/2021, [...] this topic Medical Devices Implanted Type Area Iron Assorter Device Shelf Model / Identifier Expiration Date Ser ial / Lot Nevaeh-Mesh 90x90x.6mm(Gold) - Muñiz [id number] yker Implanted: Qty: 1 on 04/20/2012 pins/screws/r ods Description: Device Iron Assorter - Stryk [email or web address] Florina.. Device Status Text - [id number]. Knee Implant-11/22/2015 Knee Implant Right: Knee Implanted: 11/22/2015 (Quantity not on file) [place] Richard Fuzzy 1 X 1 - Muñiz 4037 Mesh or Patch [employer] Implanted: Qty: 1 on 04/20/2012 Description: Device Iron Assorter - DeRoy al. Device Status Text - [id number]. [facility] Data - [id number]. Procedures Procedure Name Priority Date/Time Associated Diagnosis [...] and its performa nce characteristics determined by [facility] in a manner consistent with CLIA [...] Organization Address City/State/ZIP Code Phon e Number [facility] [address] [place], [place] [address] SUPPORT CENTER [facility] [place] [address] Laboratory Medicine and Pathology [address] [place] (ABNORMAL) CBC with Differential, Blood (02/13/2022 11:34 AM CDT) [facility] Method Time Signature Hemoglobin 12.4 11.6 [...] M.D. LAB BLOOD ADD-ON Performing Organization Address City/[facility] Phon e Number [facility] - [address] [place] [address] [phone] [facility] [place] [address] Laboratories-[address] Vitamin B12 Assay (02/13/2022 11:34 AM CDT) athologist Signature Vitamin B12 380 150 - 092 02/13/2022 DT Assay, S ng/L 1:13 PM [...] M.D. LAB BLOOD ADD-ON Performing Organization Address City/[facility] Code Phon e Number [facility] - [address] [place] [phone] [facility] [place] [address] Laboratories-[address] Comprehensive Metabolic Panel (02/13/2022 11:34 AM CDT) [...] Organization Address City/State/ZIP Code Phon e Number [facility] - [address] [place], [place] [address] [facility] [place] [address] Laboratories-[facility] [address] Trunk-Dermatology Image Exam (02/08/2022 12:10 AM CDT)Only [...] e / Group Dates MEDICARE MEDICARE A [id number] 2019-Prese [address] [place] [address] [facility] [id number] 2019-Prese [phone] [address] BLUE SHIELD [address] nt [address] [address] [place] [address] Guarantor Name Account Type Relation to Date of Phone Billing Address Patient Brittaney Roland Personal/Famil Self 1955 [phone] [address] [facility] Lucia Anguiano RN y (Home) TANESHA Bender [phone] (Work)
--- OUTSIDE RECORDS SUMMARY | 2022-03-27 09:45 | XMS_ITS | Encounter Summary ---
:1955 Author Organization [facility] Address [address] [place] [address] Care Team Providers Name Role Phone Unavailable Primary Care Provider Unavailable Reason for Visit Reason Comments Pre-visit Intake Encounter Details Date Type Department Care Team Description 01/14/2022 Clinical Communication Visit Review in Pr e-visit Intake [place], [place] 200 [place], [place] [phone] Social History Tobacco Use Types Packs/Day Years [...] How often do you attend restorationism or episcopal Patient refused 01/09/2022 services? Do you belong [...] Visit Dermatology Marilu Majano M.D. [address] [place] [address] documented as of this encounter Visit Diagnoses Not on filedocumented in this encounter
--- OUTSIDE RECORDS SUMMARY | 2022-03-27 09:45 | XMS_ITS | Encounter Summary ---
:1955 Author Organization [facility] Address [address] [place] [address] Care Team Providers Name Role Phone Unavailable Primary Care Provider Unavailable Reason for Referral Outpatient (Routine) - Closed Specialty Diagnoses / Procedures Referred By Contact Refer red To Contact Diagnoses Psoriasis Marilu Majano M.D. [facility] Procedures DX Hand Bilateral 2 Views and Wrist Bilateral 2 Views [address] [place] [phone] Referral ID Status Reason Start Date Expiration Date Visits Requ ested Visits Authorized [id number] Closed 11/12/2021 11/12/2022 1 1 Reason for Visit Outpatient (Routine) - Closed Specialty Diagnoses / Procedures Referred By Contact Refer red To Contact Diagnoses Psoriasis Marilu Majano M.D. [facility] Procedures DX Hand Bilateral 2 Views and Wrist Bilateral 2 Views [address] [place] [phone] Referral ID Status Reason Start Date Expiration Date Visits Requ ested Visits Authorized [id number] Closed 11/12/2021 11/12/2022 1 1 Encounter Details Date Type Department Care Team Description 11/12/2021 Hospital Encounter Department of Radiology, Marilu Majano M.D. [facility], in [address] [place] [address] [address] [facility] [address] [place] [address] [phone] Social History Tobacco Use Types Packs/Day Years [...] or relatives? How often do you attend faith or faith Patient refused 01/09/2022 services? Do you belong to any clubs or organizations Yes 01/09/2022 such as faith groups, unions, fraternal or athletic groups, or [...] Dermatology Link, Marilu Ellis M.D. [address] [place] [address] documented as of this encounter Procedures Procedure [...] likely degenerative. Marilu [facility]E NAVIN documented in this encounter Visit Diagnoses Diagnosis Psoriasis documented in this encounter
--- OUTSIDE RECORDS SUMMARY | 2022-03-27 09:45 | XMS_ITS | Encounter Summary ---
:1955 Author Organization [facility] Address [address] [place] [address] Care Team Providers Name Role Phone Unavailable Primary Care Provider Unavailable Reason for Referral Outpatient (Routine) - Authorized Specialty Diagnoses / Procedures Referred By Contact Refer red To Contact Dermatology Diagnoses Dermatitis Asteatotic Xerotic Marilu Majano M.D. [address] [address] Referral ID Status Reason Start Date Expiration Date Visits V isits Requested Authorized [id number] Authorized 02/08/2022 02/07/2025 1 1 Scheduling Instructions 3-4 months. Asteatotic dermatitis with Ron Majano edication Prior Authorization - Authorized Specialty Diagnoses / Procedures Referred By Contact Refer red To Contact Diagnoses Dermatitis Asteatotic Xerotic Marilu Majano M.D. [address] [place] [phone] Referral ID Status Reason Start Date Expiration Date Visits V isits Requested Authorized [id number] Authorized 06/23/2021 06/22/2022 1 1 Reason for Visit Outpatient (Routine) - Closed Specialty Diagnoses / Procedures Referred By Contact Refer red To Contact Dermatology Diagnoses Psoriasis Marilu Majano M.D. [address] [phone] Referral ID Status Reason Start Date Expiration Date Visits Requ ested Visits Authorized [id number] Closed 11/12/2021 11/12/2022 1 1 Encounter Details Date Type Department Care Team Description 02/08/2022 Office Visit Department of Melecio, Marilu Ellis, Dermatitis A steatotic Xerotic (Primary Dx); Dermatology in Venkatesh Furunculosis; [place], [place] [address] [facility] Keratosis Seborrheic Inflamed [address] [place] [address] [phone] Social History Tobacco Use Types Packs/Day Years [...] How often do you attend scientology or samaritan Patient refused 01/09/2022 services? Do you belong [...] CDT REFERRAL: Marilu Majano M.D. [address] [place] [address] Correspondence to: Marilu Majano M.D. Supervised by: Marilu Majano M.D. Patient seen and discussed with supervising technology methodology consultant, who evaluated the patient and concurs [...] and benefits of switching to [facility] with [facility]. Patient has upcoming appointment on [...] Office Visit Dermatology Link, Marilu Ellis M.D. [address] [place] [phone] Scheduled Referrals Name Type Priority Associated Order Schedule Diagnoses Dermatology office Outpatient Referral Routine Dermatitis Ex pected: visit (clinic) Asteatotic Xerotic 022 (Approximate), Expires: 05/11/2023 documented as of this encounter Visit Diagnoses Diagnosis Dermatitis Asteatotic Xerotic - Primary Furunculosis Keratosis Seborrheic Inflamed documented in this encounter
--- OUTSIDE RECORDS SUMMARY | 2022-03-27 09:45 | XMS_ITS | Encounter Summary ---
:1955 Author Organization [facility] Address [address] [place] [address] Care Team Providers Name Role Phone Unavailable Primary Care Provider Unavailable Encounter Details Date Type Department Care Team Description 11/27/2021 Orders Only Department of Melecio, Marilu Ellis, Psoriasis Vu lgaris (Primary Dx); Dermatology in M.D. Psoriasis Guttate; [place], [place] [address] [facility] Psoriasis [address] [place] [phone] Social History Tobacco Use Types Packs/Day Years [...] How often do you attend confucianist or mandaen Patient refused 01/09/2022 services? Do [...] Dermatology Link, Marilu Ellis M.D. [address] [place] [address] documented as of this encounter Visit Diagnoses Diagnosis Psoriasis Vulgaris - Primary Psoriasis Guttate Psoriasis documented in this encounter
--- OUTSIDE RECORDS SUMMARY | 2022-03-27 09:45 | XMS_ITS | Encounter Summary ---
:1955 Author Organization [facility] Address [address] [place] [address] Care Team Providers Name Role Phone Unavailable [...] How often do you attend orthodoxy or caodaism Patient refused 01/09/2022 services? Do [...] Dermatology Link, Marilu Ellis M.D. [address] [place] [address] documented as of this encounter Procedures Procedure [...]
--- OUTSIDE RECORDS SUMMARY | 2022-03-27 09:45 | XMS_ITS | Encounter Summary ---
:1955 Author Organization [facility] Address [address] [place] [address] Care Team Providers Name Role Phone Unavailable [...] How often do you attend zoroastrianism or nondenominational Patient refused 01/09/2022 services? Do [...] or slept in a intermediate (including now)? Education Answer Date Recorded What [...] Link, Marilu Ellis M.D. [address] [place] [address] documented as of this encounter Procedures Procedure [...]
--- OUTSIDE RECORDS SUMMARY | 2022-03-27 09:45 | XMS_ITS | Encounter Summary ---
:1955 Author Organization [facility] Address [address] [place] [address] Care Team Providers Name Role Phone Unavailable Primary Care Provider Unavailable Reason for Referral Outpatient (Routine) - Closed Specialty Diagnoses / Procedures Referred By Contact Refer red To Contact Diagnoses Psoriasis Marilu Majano M.D. [facility] Procedures DX Foot Ankle Bilateral 3+ Views [address] [place] [phone] Referral ID Status Reason Start Date Expiration Date Visits Requ ested Visits Authorized [id number] Closed 11/12/2021 11/12/2022 1 1 Reason for Visit Outpatient (Routine) - Closed Specialty Diagnoses / Procedures Referred By Contact Refer red To Contact Diagnoses Psoriasis Marilu Majano M.D. [facility] Procedures DX Foot Ankle Bilateral 3+ Views [address] [place] [phone] Referral ID Status Reason Start Date Expiration Date Visits Requ ested Visits Authorized [id number] Closed 11/12/2021 11/12/2022 1 1 Encounter Details Date Type Department Care Team Description 11/12/2021 Hospital Encounter Department of Radiology, Marilu Majano M.D. [facility], in [address] [place] [address] [facility] [address] [place] [address] [phone] Social History Tobacco Use Types Packs/Day Years [...] or relatives? How often do you attend christianity or faith Patient refused 01/09/2022 services? Do you belong to any clubs or organizations Yes 01/09/2022 such as christianity groups, unions, fraternal or athletic groups, or [...] Dermatology Link, Marilu Ellis M.D. [address] [place] [address] documented as of this encounter Procedures Procedure [...] are otherwise negative. Marilu [facility] TONA HOLDEN documented in this encounter Visit Diagnoses Diagnosis Psoriasis documented in this encounter
--- OUTSIDE RECORDS SUMMARY | 2022-03-27 09:45 | XMS_ITS | Encounter Summary ---
:1955 Author Organization [facility] Address [address] [place] [address] Care Team Providers Name Role Phone Unavailable Primary Care Provider Unavailable Encounter Details Date Type Department Care Team Description 11/14/2021 Orders Only Pharmacy Prior Auth Melinda Lauren [phone] Social History Tobacco Use Types Packs/Day Years [...] How often do you attend yarsani or latter-day Patient refused 01/09/2022 services? Do [...] Office Visit Dermatology Marilu Majano M.D. [address] [place] [phone] documented as of this encounter Visit Diagnoses Not on filedocumented in this encounter
--- OUTSIDE RECORDS SUMMARY | 2022-03-27 09:45 | XMS_ITS | Encounter Summary ---
:1955 Author Organization [facility] Address [address] [place] [address] Care Team Providers Name Role Phone Unavailable Primary Care Provider Unavailable Encounter Details Date Type Department Care Team Description 02/12/2022 Orders Only Pharmacy Prior Auth Kenia Solomon [phone] Social History Tobacco Use Types Packs/Day Years [...] How often do you attend restorationism or adventist Patient refused 01/09/2022 services? Do [...] or slept in a chcf (including now)? Education Answer Date Recorded What [...] Visit Dermatology Marilu Majano M.D. [address] [place] [address] documented as of this encounter Visit Diagnoses Not on filedocumented in this encounter
--- OUTSIDE RECORDS SUMMARY | 2022-03-27 09:45 | XMS_ITS | Encounter Summary ---
:1955 Author Organization [facility] Address [address] [place] [address] Care Team Providers Name Role Phone Unavailable Primary Care Provider Unavailable Encounter Details Date Type Department Care Team Description 11/26/2021 Orders Only Pharmacy Prior Auth Car Hurst [phone] Social History Tobacco Use Types Packs/Day Years [...] or relatives? How often do you attend rastafari or jain Patient refused 01/09/2022 services? Do you belong to any clubs or organizations Yes 01/09/2022 such as rastafari groups, unions, fraternal or athletic groups, or [...] 05/23/2022 Office Visit Dermatology Marilu Majano M.D. [address] [place] [phone] documented as of this encounter Visit Diagnoses Not on filedocumented in this encounter
--- OUTSIDE RECORDS SUMMARY | 2022-03-27 09:46 | XMS_ITS | Encounter Summary ---
:1955 Author Organization [facility] Address [address] [place] [address] Care Team Providers Name Role Phone Unavailable [...] How often do you attend christianity or jewish Patient refused 01/09/2022 services? Do [...] Visit Dermatology Marilu Majano M.D. [address] [place] [address] documented as of this encounter Visit Diagnoses Not on filedocumented in this encounter
--- OUTSIDE RECORDS SUMMARY | 2022-03-27 09:46 | XMS_ITS | Encounter Summary ---
:1955 Author Organization [facility] Address [address] [place] [address] Care Team Providers Name Role Phone Unavailable Primary Care Provider Unavailable Encounter Details Date Type Department Care Team Description 06/09/2008 Hospital Encounter [facility]X [facility] INPT/OBSRV Kala Mast M.D. [address] [place], [place] [address] (Wo rk) Social History [...] How often do you attend mormon or episcopalian Patient refused 01/09/2022 services? Do [...] Office Visit Dermatology Marilu Majano M.D. 200 [place] [address] documented as of this encounter Visit Diagnoses Not on filedocumented in this encounter
--- OUTSIDE RECORDS SUMMARY | 2022-03-27 09:46 | XMS_ITS | Encounter Summary ---
:1955 Author Organization [facility] Address [address] [place] [address] Care Team Providers Name Role Phone Unavailable Primary Care Provider Unavailable Encounter Details Date Type Department Care Team Description 03/09/2009 - Hospital Encounter HX [facility] Valeria Capellan M.D. 10/07/2009 [address] [place] [address] (Wo rk) Social History Tobacco Use Types [...] How often do you attend yazdanism or jain Patient refused 01/09/2022 services? Do [...] place to sleep or slept in a assisted (including now)? Sex Assigned at Date Recorded Female 01/09/2022 4:35 PM CDT documented as of this encounter Plan of Treatment Upcoming Encounters Date Type Specialty Care Team Description 05/22/2022 Clinical Communication Admitting/Central Scheduling 05/23/2022 Office Visit Dermatology Link, Marilu Ellis M.D. [address] [place] [address] documented as of this encounter Procedures Procedure Name Priority Date/Time Associated Comments Diagnosis CT UROGRAM WITH IV Routine 07/13/2009 11:33 Resul ts for this CONTRAST WITH 3D AM ROUGHING MILL OPERATOR procedure a re in DEPENDENT WORKSTATION the re sults section. BI ULTRASOUND EXAM Routine 03/09/2009 1:24 PM Res ults for this CDT procedure are i n the results section. documented in this encounter Results CT Urogram with IV Contrast with 3D Dependent Workstation (07/13/2009 11:33 AM ROUGHING MILL OPERATOR) Anatomical Region Laterality Modality Abdomen, Pelvis Computed Tomography Specimen (Source) Anatomical Collection Method Collection Time Re ceived Time Location / / Volume Laterality 07/13/2009 11:33 AM ROUGHING MILL OPERATOR Narrative 07/13/2009 11:54 AM ROUGHING MILL OPERATOR 13-Jul-2009 11:33:00 ??Exam: CT Urogram w [...] Electronically signed by: ?? [place] [id number] [id number] 13-Jul-2009 11:54 ?Jose Kumar MD [phone] 13-Jul-2009 11:54 Procedure Note Jose Kumar M.D. [...] [id number] Electronically [place]: [place] [id number] [id number] 13-Jul-2009 11:54 Jose Kumar MD [id number] 13-Jul-2009 11:54 Gali Porter M.D. IMTong CT [...]
--- OUTSIDE RECORDS SUMMARY | 2022-03-27 09:46 | XMS_ITS | Encounter Summary ---
:1955 Author Organization [facility] Address [address] [place] [address] Care Team Providers Name Role Phone Unavailable Primary Care Provider Unavailable Encounter Details Date Type Department Care Team Description 04/14/2009 Hospital Encounter HX [facility] Rich Doyle, INPT/OBSRV M.DElvis [address] [address] (Wo rk) Social History Tobacco [...] or relatives? How often do you attend latter-day or confucianist Patient refused 01/09/2022 services? Do you belong to any clubs or organizations Yes 01/09/2022 such as latter-day groups, unions, fraternal or athletic groups, or [...] Office Visit Dermatology Marilu Majano M.D. 200 [place] [address] documented as of this encounter Visit Diagnoses Not on filedocumented in this encounter
--- OUTSIDE RECORDS SUMMARY | 2022-03-27 09:46 | XMS_ITS | Encounter Summary ---
:1955 Author Organization [facility] Address [address] [place] [address] Care Team Providers Name Role Phone Unavailable Primary Care Provider Unavailable Encounter Details Date Type Department Care Team Description 06/30/2008 Hospital Encounter [facility] INPT/OBSRV Kala Mast M.D. [address] [place], [place] [address] (Wo rk) Social History [...] How often do you attend mormonism or taoism Patient refused 01/09/2022 services? Do [...] Office Visit Dermatology Marilu Majano M.D. [address] [place] [address] documented as of this encounter Visit Diagnoses Not on filedocumented in this encounter
--- OUTSIDE RECORDS SUMMARY | 2022-03-27 09:46 | XMS_ITS | Encounter Summary ---
:1955 Author Organization [facility] Address [address] [place] [address] Care Team Providers Name Role Phone Unavailable [...] How often do you attend pentecostal or buddhist Patient refused 01/09/2022 services? Do [...] Dermatology Link, Marilu Ellis M.D. [address] [place] [address] documented as of this encounter Visit Diagnoses Not on filedocumented in this encounter
--- OUTSIDE RECORDS SUMMARY | 2022-03-27 09:46 | XMS_ITS | Encounter Summary ---
:1955 Author Organization [facility] Address [address] [place] [address] Care Team Providers Name Role Phone Unavailable Primary Care Provider Unavailable Encounter Details Date Type Department Care Team Description 05/20/2008 Hospital Encounter [facility] INPT/OBSRV Kala Mast M.D. [address] [place], [place] [address] (Wo rk) Social History [...] or relatives? How often do you attend adventist or congregation Patient refused 01/09/2022 services? Do you belong to any clubs or organizations Yes 01/09/2022 such as adventist groups, unions, fraternal or athletic groups, or [...] Office Visit Dermatology Marilu Majano M.D. [address] [place] [address] documented as of this encounter Visit Diagnoses Not on filedocumented in this encounter
--- OUTSIDE RECORDS SUMMARY | 2022-03-27 09:46 | XMS_ITS | Encounter Summary ---
:1955 Author Organization [facility] Address [address] [place] [address] Care Team Providers Name Role Phone Unavailable Primary Care Provider Unavailable Encounter Details Date Type Department Care Team Description 09/30/2008 Hospital Encounter HX NO MAPPING Alan Simeon Phar m.D., R.Ph. [address] [place], [place] [phone] (Wo rk) Social History Tobacco Use Types [...] How often do you attend gnosticist or adventism Patient refused 01/09/2022 services? Do you belong [...] Communication Admitting/Central Scheduling 05/23/2022 Office Visit Dermatology LinkMarilu M.D. [address] [place] [address] documented as of this encounter Visit Diagnoses Not on filedocumented in this encounter
--- OUTSIDE RECORDS SUMMARY | 2022-03-27 09:46 | XMS_ITS | Encounter Summary ---
:1955 Author Organization [facility] Address [address] [place] [address] Care Team Providers Name Role Phone Unavailable Primary Care Provider Unavailable Encounter Details Date Type Department Care Team Description 11/02/2008 Hospital Encounter [facility] INPT/OBSRV Kala Mast M.D. [address] [place], [place] [address] (Wo rk) Social History [...] How often do you attend rastafarian or taoist Patient refused 01/09/2022 services? Do [...] Office Visit Dermatology Marilu Majano M.D. [address] [place] [address] documented as of this encounter Visit Diagnoses Not on filedocumented in this encounter
--- OUTSIDE RECORDS SUMMARY | 2022-03-27 09:46 | XMS_ITS | Encounter Summary ---
:1955 Author Organization [facility] Address [address] [place] [address] Care Team Providers Name Role Phone Unavailable Primary Care Provider Unavailable Encounter Details Date Type Department Care Team Description 11/10/2008 Hospital Encounter [facility] INPT/OBSRV Kala Mast M.D. [address] [place], [place] [address] (Wo rk) Social History [...] How often do you attend christianity or jain Patient refused 01/09/2022 services? Do [...] Office Visit Dermatology Marilu Majano M.D. [address] [place] [address] documented as of this encounter Visit Diagnoses Not on filedocumented in this encounter
--- OUTSIDE RECORDS SUMMARY | 2022-03-27 09:46 | XMS_ITS | Encounter Summary ---
:1955 Author Organization [facility] Address [address] [place] [address] Care Team Providers Name Role Phone Unavailable Primary Care Provider Unavailable Encounter Details Date Type Department Care Team Description 08/25/2008 Hospital Encounter [facility] INPT/OBSRV Kala Mast M.D. [address] [place], [place] [address] (Wo rk) Social History [...] or relatives? How often do you attend gnosticism or baptist Patient refused 01/09/2022 services? Do you belong to any clubs or organizations Yes 01/09/2022 such as gnosticism groups, unions, fraternal or athletic groups, or [...] Office Visit Dermatology Marilu Majano M.D. 200 [place] [address] documented as of this encounter Visit Diagnoses Not on filedocumented in this encounter
--- OUTSIDE RECORDS SUMMARY | 2022-03-27 09:46 | XMS_ITS | Encounter Summary ---
:1955 Author Organization [facility] Address [address] [place] [address] Care Team Providers Name Role Phone Unavailable [...] How often do you attend congregational or jainism Patient refused 01/09/2022 services? Do you belong [...] Visit Dermatology Marilu Majano M.D. [address] [place] [address] documented as of this encounter Procedures Procedure Name Priority Date/Time Associated Diagnosis Comme nts PLASTIC AND RECON Routine 08/24/2009 4:35 AM Resu lts for this SURGERY IMAGE EXAM [employer] procedure are in the results section. documented in this encounter Results PLASTIC AND RECON SURGERY IMAGE EXAM (08/24/2009 4:35 AM [employer]) Specimen (Source) Anatomical Location Collection Method / [...]
--- OUTSIDE RECORDS SUMMARY | 2022-03-27 09:46 | XMS_ITS | Encounter Summary ---
:1955 Author Organization [facility] Address [address] [place] [address] Care Team Providers Name Role Phone Unavailable Primary Care Provider Unavailable Encounter Details Date Type Department Care Team Description 02/16/2009 Hospital Encounter HX [facility] INPT/OBSRV Kala Mast M.D. [address] [place], [place] [address] (Wo rk) Social History [...] How often do you attend confucianism or mormon Patient refused 01/09/2022 services? Do you belong [...] Office Visit Dermatology Marilu Majano M.D. [address] [place] [address] documented as of this encounter Visit Diagnoses Not on filedocumented in this encounter
--- OUTSIDE RECORDS SUMMARY | 2022-03-27 09:46 | XMS_ITS | Encounter Summary ---
:1955 Author Organization [facility] Address [address] [place] [address] Care Team Providers Name Role Phone Unavailable [...] How often do you attend jew or presybeterian Patient refused 01/09/2022 services? Do [...] Visit Dermatology Marilu Majano M.D. [address] [place] [address] documented as of this encounter Visit Diagnoses Not on filedocumented in this encounter
--- OUTSIDE RECORDS SUMMARY | 2022-03-27 09:46 | XMS_ITS | Encounter Summary ---
:1955 Author Organization [facility] Address [address] [place] [address] Care Team Providers Name Role Phone Unavailable [...] How often do you attend quaker or baptism Patient refused 01/09/2022 services? Do [...] Dermatology Link, Marilu Ellis M.D. [address] [place] [address] documented as of this encounter Visit Diagnoses Not on filedocumented in this encounter
--- OUTSIDE RECORDS SUMMARY | 2022-03-27 09:46 | XMS_ITS | Encounter Summary ---
:1955 Author Organization [facility] Address [address] [place] [address] Care Team Providers Name Role Phone Unavailable Primary Care Provider Unavailable Reason for Referral Outpatient (Routine) - Closed Specialty Diagnoses / Procedures Referred By Contact Refer red To Contact Dermatology Diagnoses Psoriasis Marilu Majano M.D. [facility] [address] [place], [place] [address] Referral ID Status Reason Start Date Expiration Date Visits Requ ested Visits Authorized [id number] Closed 11/12/2021 11/12/2022 1 1 Scheduling Instructions Psoriasis follow up utpatient (Routine) - Closed Specialty Diagnoses / Procedures Referred By Contact Refer red To Contact Diagnoses Psoriasis Marilu Majano M.D. [facility] Procedures DX Hand Bilateral 2 Views and Wrist Bilateral 2 Views [address] [place], [place] [address] Referral ID Status Reason Start Date Expiration Date Visits Requ ested Visits Authorized [id number] Closed 11/12/2021 11/12/2022 1 1 utpatient (Routine) - Closed Specialty Diagnoses / Procedures Referred By Contact Refer red To Contact Diagnoses Psoriasis Marilu Majano M.D. [facility] Procedures DX Foot Ankle Bilateral 3+ Views [address] [place], [place] [address] Referral ID Status Reason Start Date Expiration Date Visits Requ ested Visits Authorized [id number] Closed 11/12/2021 11/12/2022 1 1 Reason for Visit Outpatient (Routine) - Closed Specialty Diagnoses / Procedures Referred By Contact Refer red To Contact Dermatology Diagnoses Psoriasis Hansa Doty M.D. [address] [address] Referral ID Status Reason Start Date Expiration Date Visits Requ ested Visits Authorized [id number] Closed 11/07/2021 11/07/2022 1 1 Encounter Details Date Type Department Care Team Description 11/12/2021 Comprehensive Visit Department of Marilu Majano Psori asis (Primary Dx); Dermatology in [place] Dermatitis Psoriasiform; [place], [place] [address] [facility] Dermatitis Asteatotic Xerotic; [address] [place], [place] [address] [phone] Social History Tobacco Use Types Packs/Day Years [...] How often do you attend confucianist or church Patient refused 01/09/2022 services? Do [...] PM CDT Correspondence to Hansa Underwood M.D. [address] [place] [address] CHIEF COMPLAINT / REASON FOR VISIT Psoriasis HISTORY OF PRESENT ILLNESS Ms. Brittaney Anguiano TRACI Roland is a 66 y.o. female who presents today for the above. She was last seen in Dermatology at [facility] in 2012. She reports she has had a skin biopsy at outside institution, butnot sure what it showed. She has not had biopsies at [facility]. She also has a history of Crohn's [...] She will be meeting with GI at [facility] after several years in December 2021, and [...] Visit Dermatology Marilu Majano M.D. [address] [place] [address] Scheduled Referrals Name Type Priority Associated Order [...] jake nt, likely degenerative. Marilu Majano M.D. [facility] DURES DX Foot Ankle [...]
--- OUTSIDE RECORDS SUMMARY | 2022-03-27 09:46 | XMS_ITS | Encounter Summary ---
:1955 Author Organization [facility] Address [address] [place] [address] Care Team Providers Name Role Phone Unavailable [...] or relatives? How often do you attend christian or mormonism Patient refused 01/09/2022 services? Do you belong to any clubs or organizations Yes 01/09/2022 such as christian groups, unions, fraternal or athletic groups, or [...] Visit Dermatology Link, Marilu Ellis M.D. 200 [place] [address] documented as of this encounter Visit Diagnoses Not on filedocumented in this encounter
--- OUTSIDE RECORDS SUMMARY | 2022-03-27 09:46 | XMS_ITS | Encounter Summary ---
:1955 Author Organization [facility] Address [address] [place] [address] Care Team Providers Name Role Phone Unavailable Primary Care Provider Unavailable Encounter Details Date Type Department Care Team Description 02/02/2009 Hospital Encounter [facility] INPT/OBSRV Kala Mast M.D. [address] [place], [place] [address] (Wo rk) Social History [...] or relatives? How often do you attend temple or mu-ism Patient refused 01/09/2022 services? Do you belong to any clubs or organizations Yes 01/09/2022 such as temple groups, unions, fraternal or athletic groups, or [...] Office Visit Dermatology Marilu Majano M.D. [address] [place] [address] documented as of this encounter Visit Diagnoses Not on filedocumented in this encounter
--- OUTSIDE RECORDS SUMMARY | 2022-03-27 09:46 | XMS_ITS | Encounter Summary ---
:1955 Author Organization [facility] Address [address] [place] [address] Care Team Providers Name Role Phone Unavailable Primary Care Provider Unavailable Encounter Details Date Type Department Care Team Description 03/02/2015 Historical Ophthalmology [facility] Hood Chand M.D., Ph.D. [address] [place], [place] [phone] (Wo rk) Social History [...] On February 01, 2015, she saw her admitting clerk, Dr. Liu for evaluation of this. She [...] gland dysfunction CDM Reports - EYEGEN Id: [id number] Status: Fnl documented in this encounter Plan of Treatment Upcoming Encounters Date Type Specialty Care Team Description 05/22/2022 Clinical Communication Admitting/Central Scheduling 05/23/2022 Office Visit Dermatology Melecio, Marilu Ellis M.D. [address] [place] [address] documented as of this encounter Visit Diagnoses Not on filedocumented in this encounter
--- OUTSIDE RECORDS SUMMARY | 2022-03-27 09:46 | XMS_ITS | Encounter Summary ---
:1955 Author Organization [facility] Address [address] [place] [address] Care Team Providers Name Role Phone Unavailable Primary Care Provider Unavailable Encounter Details Date Type Department Care Team Description 03/14/[address] [facility] INPT/OBSRV Kala Mast M.D. [address] [place], [place] [address] (Wo rk) Social History [...] How often do you attend rastafarian or scientology Patient refused 01/09/2022 services? Do [...] Office Visit Dermatology Marilu Majano M.D. [address] [place] [address] documented as of this encounter Visit Diagnoses Not on filedocumented in this encounter
--- OUTSIDE RECORDS SUMMARY | 2022-03-27 09:46 | XMS_ITS | Encounter Summary ---
:[address] [facility] Address [address] [place] [address] Care Team Providers Name Role Phone Unavailable Primary Care Provider Unavailable Encounter Details Date Type Department Care Team Description 07/13/2008 Hospital Encounter [facility] INPT/OBSRV Kala Mast M.D. [address] [place], [place] [address] (Wo rk) Social History [...] How often do you attend rastafari or taoist Patient refused 01/09/2022 services? Do [...] Office Visit Dermatology Marilu Majano M.D. [address] [place] [address] documented as of this encounter Visit Diagnoses Not on filedocumented in this encounter
--- OUTSIDE RECORDS SUMMARY | 2022-03-27 09:46 | XMS_ITS | Encounter Summary ---
:1955 Author Organization [facility] Address [address] [place] [address] Care Team Providers Name Role Phone Unavailable Primary Care Provider Unavailable Encounter Details Date Type Department Care Team Description 12/08/2008 Hospital Encounter [facility] INPT/OBSRV Kala Mast M.D. [address] [place], [place] [address] (Wo rk) Social History [...] or relatives? How often do you attend presybeterian or jew Patient refused 01/09/2022 services? Do you belong to any clubs or organizations Yes 01/09/2022 such as presybeterian groups, unions, fraternal or athletic groups, or [...] Office Visit Dermatology Marilu Majano M.D. [address] [place] [address] documented as of this encounter Visit Diagnoses Not on filedocumented in this encounter
--- OUTSIDE RECORDS SUMMARY | 2022-03-27 09:46 | XMS_ITS | Encounter Summary ---
:1955 Author Organization [facility] Address [address] [place] [address] Care Team Providers Name Role Phone Unavailable Primary Care Provider Unavailable Reason for Referral Outpatient (Routine) - Closed Specialty Diagnoses / Procedures Referred By Contact Refer red To Contact Dermatology Diagnoses Psoriasis Hansa Doty M.D. [facility] [address] [place] [address] Referral ID Status Reason Start Date Expiration Date Visits Requ ested Visits Authorized [id number] Closed 11/07/2021 11/07/2022 1 1 Encounter Details Date Type Department Care Team Description 11/07/[address] [facility] Hansa Doty Psoriasis (Primary AND CLINICS [facility] Pnea Dx) [address] [facility] [address] [place] [address] [phone] Social History Tobacco Use Types Packs/Day Years [...] How often do you attend quaker or baptist Patient refused 01/09/2022 services? Do [...] Visit Dermatology Marilu Majano M.D. [address] [place] [address] Scheduled Referrals Name Type Priority Associated Order Schedule Diagnoses Dermatology Referral Outpatient Referral Routine Psoriasis Expected: 11/07/2021 (Approximate), Expires: 02/07/2023 documented as of this encounter Visit Diagnoses Diagnosis Psoriasis - Primary documented in this encounter
--- OUTSIDE RECORDS SUMMARY | 2022-03-27 09:46 | XMS_ITS | Encounter Summary ---
:1955 Author Organization [facility] Address [address] [place] [address] Care Team Providers Name Role Phone Unavailable Primary Care Provider Unavailable Encounter Details Date Type Department Care Team Description 05/16/2008 Hospital Encounter [facility] INPT/OBSRV Kala Mast M.D. [address] [place], [place] [address] (Wo rk) Social History [...] How often do you attend lutheran or shinto Patient refused 01/09/2022 services? Do [...] Office Visit Dermatology Marilu Majano M.D. [address] [place] [address] documented as of this encounter Visit Diagnoses Not on filedocumented in this encounter
--- OUTSIDE RECORDS SUMMARY | 2022-03-27 09:46 | XMS_ITS | Encounter Summary ---
:1955 Author Organization [facility] Address [address] [place] [address] Care Team Providers Name Role Phone Unavailable Primary Care Provider Unavailable Encounter Details Date Type Department Care Team Description 06/02/2008 Hospital Encounter [facility] INPT/OBSRV Kala Mast M.D. [address] [place], [place] [address] (Wo rk) Social History [...] How often do you attend latter-day or bahai Patient refused 01/09/2022 services? Do [...] Office Visit Dermatology Marilu Majano M.D. [address] [place] [address] documented as of this encounter Visit Diagnoses Not on filedocumented in this encounter
--- OUTSIDE RECORDS SUMMARY | 2022-03-27 09:46 | XMS_ITS | Encounter Summary ---
:1955 Author Organization [facility] Address [address] [place] [address] Care Team Providers Name Role Phone Unavailable [...] How often do you attend gnosticist or jew Patient refused 01/09/2022 services? Do [...] Communication Admitting/Central Scheduling 05/23/2022 Office Visit Dermatology Marliu Majano M.D. [address] [place] [address] documented as of this encounter Visit Diagnoses Not on filedocumented in this encounter
--- OUTSIDE RECORDS SUMMARY | 2022-03-27 09:46 | XMS_ITS | Encounter Summary ---
:1955 Author Organization [facility] Address [address] [place] [address] Care Team Providers Name Role Phone Unavailable Primary Care Provider Unavailable Encounter Details Date Type Department Care Team Description 03/31/2009 Hospital Encounter [facility] INPT/OBSRV Kala Mast M.D. [address] [place], [place] [address] (Wo rk) Social History [...] How often do you attend moravian or yazidism Patient refused 01/09/2022 services? Do you belong [...] place to sleep or slept in a care home (including now)? Sex Assigned at Date Recorded Female 01/09/2022 4:35 PM CDT documented as of this encounter Plan of Treatment Upcoming Encounters Date Type Specialty Care Team Description 05/22/2022 Clinical Communication Admitting/Central Scheduling 05/23/2022 Office Visit Dermatology Marilu Majano M.D. [address] [place] [address] documented as of this encounter Visit Diagnoses Not on filedocumented in this encounter
--- OUTSIDE RECORDS SUMMARY | 2022-03-27 09:46 | XMS_ITS | Encounter Summary ---
:1955 Author Organization [facility] Address [address] [place] [address] Care Team Providers Name Role Phone Unavailable Primary Care Provider Unavailable Encounter Details Date Type Department Care Team Description 12/02/2008 Hospital Encounter HX [facility] INPT/OBSRV Kala Mast M.D. [address] [place], [place] [address] (Wo rk) Social History [...] How often do you attend religion or religion Patient refused 01/09/2022 services? Do you belong [...] Office Visit Dermatology Marilu Majano M.D. [address] [place] [address] documented as of this encounter Visit Diagnoses Not on filedocumented in this encounter
--- OUTSIDE RECORDS SUMMARY | 2022-03-27 09:46 | XMS_ITS | Encounter Summary ---
:1955 Author Organization [facility] Address [address] [place] [address] Care Team Providers Name Role Phone Unavailable [...] How often do you attend buddhism or gnosticist Patient refused 01/09/2022 services? Do you belong [...] Visit Dermatology Marilu Majano M.D. [address] [place] [address] documented as of this encounter Visit Diagnoses Not on filedocumented in this encounter
--- OUTSIDE RECORDS SUMMARY | 2022-03-27 09:46 | XMS_ITS | Encounter Summary ---
:1955 Author Organization [facility] Address [address] [place] [address] Care Team Providers Name Role Phone Unavailable Primary Care Provider Unavailable Encounter Details Date Type Department Care Team Description 08/25/2008 Hospital En[facility] INPT/OBSRV Kala Mast M.D. [address] [place], [place] [address] (Wo rk) Social History [...] How often do you attend mosque or hinduism Patient refused 01/09/2022 services? Do [...] Office Visit Dermatology Marilu Majano M.D. [address] [place] [address] documented as of this encounter Visit Diagnoses Not on filedocumented in this encounter
--- OUTSIDE RECORDS SUMMARY | 2022-03-27 09:46 | XMS_ITS | Encounter Summary ---
:1955 Author Organization [facility] Address [address] [place] [address] Care Team Providers Name Role Phone Unavailable Primary Care Provider Unavailable Encounter Details Date Type Department Care Team Description 04/27/2009 Hospital Encounter [facility] INPT/OBSRV Irene Mahoney M.D. [address] [place] [address] (Wo rk) Social History Tobacco Use Types [...] How often do you attend presybeterian or confucianist Patient refused 01/09/2022 services? Do [...] Visit Dermatology Link, Marilu Ellis M.D. [address] [place] [address] documented as of this encounter Visit Diagnoses Not on filedocumented in this encounter
--- OUTSIDE RECORDS SUMMARY | 2022-03-27 09:46 | XMS_ITS | Encounter Summary ---
:1955 Author Organization [facility] Address [address] [place] [address] Care Team Providers Name Role Phone Unavailable [...] How often do you attend amish or sabianist Patient refused 01/09/2022 services? Do you belong [...] 05/23/2022 Office Visit Dermatology [place]il[place] [address] documented as of this encounter Visit Diagnoses Not on filedocumented in this encounter
--- OUTSIDE RECORDS SUMMARY | 2022-03-27 09:46 | XMS_ITS | Encounter Summary ---
:1955 Author Organization [facility] Address [address] [place] [address] Care Team Providers Name Role Phone Unavailable Primary Care Provider Unavailable Encounter Details Date Type Department Care Team Description 01/12/2009 - Hospital Encounter HX RST BREAST Valeria Capellan M.D. 10/07/2009 [address] [place] [address] (Wo rk) Social History Tobacco Use Types [...] How often do you attend congregational or jehovah's witness Patient refused 01/09/2022 services? [...] Office Visit Dermatology Marilu Majano M.D. [address] [place] [address] documented as of this encounter Visit Diagnoses Not on filedocumented in this encounter
--- OUTSIDE RECORDS SUMMARY | 2022-03-27 09:47 | XMS_ITS | Encounter Summary ---
:1955 Author Organization [facility] Address [address] [place] [address] Care Team Providers Name Role Phone Unavailable [...] or relatives? How often do you attend sabianism or baptism Patient refused 01/09/2022 services? Do you belong to any clubs or organizations Yes 01/09/2022 such as sabianism groups, unions, fraternal or athletic groups, or [...] Visit Dermatology Marilu Majano M.D. [address] [place] [address] documented as of this encounter Visit Diagnoses Not on filedocumented in this encounter
--- OUTSIDE RECORDS SUMMARY | 2022-03-27 09:47 | XMS_ITS | Encounter Summary ---
:1955 Author Organization [facility] Address [address] [place] [address] Care Team Providers Name Role Phone Unavailable Primary Care Provider Unavailable Encounter Details Date Type Department Care Team Description 04/01/2008 Hospital Encounter [facility] INPT/OBSRV Kala Mast M.D. [address] [place], [place] [address] (Wo rk) Social History [...] or relatives? How often do you attend hindu or jewish Patient refused 01/09/2022 services? Do you belong to any clubs or organizations Yes 01/09/2022 such as hindu groups, unions, fraternal or athletic groups, or [...] Office Visit Dermatology Marilu Majano M.D. [address] [place] [address] documented as of this encounter Visit Diagnoses Not on filedocumented in this encounter
--- OUTSIDE RECORDS SUMMARY | 2022-03-27 09:47 | XMS_ITS | Encounter Summary ---
:1955 Author Organization [facility] Address [address] [place] [address] Care Team Providers Name Role Phone Unavailable Primary Care Provider Unavailable Encounter Details Date Type Department Care Team Description 05/16/2008 Hospital Encounter [facility]X [facility] INPT/OBSRV Irene Mahoney M.D. [address] [place] [address] (Wo rk) Social History Tobacco Use Types [...] How often do you attend christianity or yazidism Patient refused 01/09/2022 services? Do [...] Visit Dermatology Link, Marilu Ellis M.D. [address] [place] [address] documented as of this encounter Visit Diagnoses Not on filedocumented in this encounter
--- OUTSIDE RECORDS SUMMARY | 2022-03-27 09:47 | XMS_ITS | Encounter Summary ---
:1955 Author Organization [facility] Address [address] [place] [address] Care Team Providers Name Role Phone Unavailable Primary Care Provider Unavailable Encounter Details Date Type Department Care Team Description 04/29/2008 Hospital Encounter HX [facility] INPT/OBSRV Kala Mast M.D. [address] [place], [place] [address] (Wo rk) Social History [...] How often do you attend mandaeism or temple Patient refused 01/09/2022 services? Do [...] Office Visit Dermatology Marilu Majano M.D. [address] [place] [address] documented as of this encounter Visit Diagnoses Not on filedocumented in this encounter
== END 2022-03-25 16:11 | disposition home or self-care (01) ==
LOC: LKVREF 03-27 09:42
PROVIDERS: PCP Internal Medicine; Visit Provider Physician Assistant Medical
DX: R30.0 Dysuria (principal); N39.0 Urinary tract infection, site not specified
CPT/HCPCS: 87086

== ENCOUNTER 2022-04-03 09:44 | Outpatient (CLI) | payer MEDICARE, BC, SELFPAY ==
--- OUTSIDE RECORDS SUMMARY | 2022-04-03 09:53 | XMS_ITS | Encounter Summary ---
:1955 Author Organization [facility] Address [address] [place] [address] Care Team Providers Name Role Phone Unavailable [...] How often do you attend gnosticism or lutheran Patient refused 01/09/2022 services? Do you belong [...] Dermatology Link, Marilu Ellis M.D. [address] [place] [address] documented as of this encounter Procedures Procedure [...]
--- OUTSIDE RECORDS SUMMARY | 2022-04-03 09:53 | XMS_ITS | Clinical Summary ---
:[address] [facility] Address [address] [place] [address] Care Team Providers Name Role Phone Unavailable Primary Care Provider Unavailable Source Comments Patient records contain information from all sites at [facility]. For routine questions regarding patient records, call [phone] during business hours, M-F 8:00 AM - 5:00 PM Central Time. Record requests for emergency care only can be directed to [phone] at any time.[facility] Allergies Active Allergy Reactions Severity Noted Date [...] How often do you attend scientology or orthodox Patient refused 01/09/2022 services? Do [...] Visit Dermatology Marilu Majano M.D. [address] [place] [address] Health Maintenance Due Date Last Done Comments [...] this topic Medical Devices Implanted Type Area Appraiser Device Shelf Model / Identifier Expiration Date Ser ial / Lot Nevaeh-Mesh 90x90x.6mm(Gold) - Muñiz [id number] yker Implanted: Qty: 1 on 04/20/2012 pins/screws/r ods Description: Device Appraiser - Stryk FABPulous Florina.. Device Status Text - [id number]. Knee Implant-11/22/2015 Knee Implant Right: Knee Implanted: 11/22/2015 (Quantity not on file) Nesquehoning Richard Fuzzy 1 X 1 - Muñiz 4407 Mesh or Patch [employer] Implanted: Qty: 1 on 04/20/2012 Description: Device Appraiser - DeRoy al. Device Status Text - [id number]. [facility] Data - [id number]. Procedures Procedure Name Priority Date/Time Associated Diagnosis [...] and its performa nce characteristics determined by [facility] in a manner consistent with CLIA requirements. This test has not been cleared or approved by the U.S. Skylar d and Drug Administration. Specimen Anatomical Collection Method Collection Time Receive d Time (Source) Location / / Volume Laterality Blood (Blood, 02/13/2022 11:34 02/14/2022 7:12 Venous) AM CDT AM CDT Erica Nguyen M.D. LAB BLOOD ADD-ON Performing Organization Address City/State/ZIP Code Phon e Number [facility] [address] [place], [place] [address] [place] [address] Laboratory Medicine and Pathology [address] [place] (ABNORMAL) CBC with Differential, Blood (02/13/2022 11:34 AM CDT) [facility] Method Time Signature Hemoglobin 12.4 11.6 - [...] M.D. LAB BLOOD ADD-ON Performing Organization Address City/[facility] Phon e Number [facility] - [address] [place] [address] [facility] [place] [address] Laboratories[address] Vitamin B12 Assay (02/13/2022 11:34 AM CDT) athologist Signature Vitamin B12 977 226 - 103 02/13/2022 DT Assay, S ng/L 1:13 PM [...] M.D. LAB BLOOD ADD-ON Performing Organization Address City/[facility] Code Phon e Number [facility] - [address] [place] [address] [facility] [place] [address] Laboratories[address] Comprehensive Metabolic Panel (02/13/2022 11:34 AM [...] Organization Address City/State/ZIP Code Phon e Number [facility] - [address] [place], [place] [address] [facility] [place] [address] Laboratories-[facility] [address] Trunk-Dermatology Image Exam (02/08/2022 [...] e / Group Dates MEDICARE MEDICARE A [id number] 2019-Prese [address] [place] [address] [facility]UE CROSS [facility] [id number] 2019-Prese [phone] [address] [employer]UE [employer] [address] [phone] [place] [address] Guarantor Name Account Type Relation to Date of Phone Billing Address Patient Brittaney Roland Personal/Famil Self 1955 [phone] [address] [facility] Lucia Anguiano RN y (Home) TANESHA Bender [phone] (Work)
--- OUTSIDE RECORDS SUMMARY | 2022-04-03 09:53 | XMS_ITS | Encounter Summary ---
:[address] [facility] Address [address] [place] [address] Care Team Providers Name Role Phone Unavailable Primary Care Provider Unavailable Reason for Referral Outpatient (Routine) - Authorized Specialty Diagnoses / Referred By Referred To Cont act Procedures Contact Gastroenterology and Erica Nguyen [place] [facility] Hepatology Venkatesh [address] [place] [phone] Referral ID Status Reason Start Date Expiration Date Visits V isits Requested Authorized [id number] Authorized 02/13/2022 02/12/2025 1 1 Outpatient (Routine) - Authorized Specialty Diagnoses / Procedures Referred By Contact Refer red To Contact Obstetrics and Diagnoses Noninfective Gastroenteritis And Colitis Unspecified Crohn's Disease (HCC) Infection Urinary Tract Recurrent Prolapse Rectal Pelvic Floor Tension Abnormal Uterine And Vaginal Bleeding Unspecified Erica Nguyen [place] [facility] Gynecology Venkatesh [address] [place] [address] Referral ID Status Reason Start Date Expiration Date Visits V isits Requested Authorized [id number] Authorized 02/13/2022 02/13/2023 1 1 Outpatient (Routine) - Authorized Specialty Diagnoses / Procedures Referred By Contact Refer red To Contact Diagnoses Noninfective Gastroenteritis And Colitis Unspecified Crohn's Disease (HCC) Infection 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 [facility] Procedures Enema Prep [address] [place] [address] Referral ID Status Reason Start Date Expiration Date Visits V isits Requested Authorized [id number] Authorized 02/13/2022 02/13/2023 1 1 Outpatient (Routine) - Authorized Specialty Diagnoses / Procedures Referred By Contact Refer red To Contact Diagnoses Noninfective Gastroenteritis And Colitis Unspecified Crohn's Disease (HCC) Infection 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 [facility] Procedures Anorectal Manometry [address] [place] [address] Referral ID Status Reason Start Date Expiration Date Visits V isits Requested Authorized [id number] Authorized 02/13/2022 02/13/2023 1 1 MRI/CAT/PET Scan (Routine) - Authorized Specialty Diagnoses / Procedures Referred By Contact Refer red To Contact Radiology Diagnoses Noninfective Gastroenteritis And Colitis Unspecified Erica Nguyen M.D. [facility] Procedures CT Abdomen Pelvis Enterography with IV Contrast [address] [place] [address] Referral ID Status Reason Start Date Expiration Date Visits V isits Requested Authorized [id number] Authorized 02/13/2022 02/13/2023 1 1 Outpatient (Routine) - Authorized Specialty Diagnoses / Procedures Referred By Contact Refer red To Contact Diagnoses Crohn's Disease (HCC) Infection Urinary Tract Recurrent Erica Nguyen M.D. [facility] Procedures Colonoscopy [address] [place] [address] Referral ID Status Reason Start Date Expiration Date Visits V isits Requested Authorized [id number] Authorized 02/13/2022 02/13/2023 1 1 Reason for Visit Appointment Request (Routine) - Closed Specialty Diagnoses / Referred By Contact Referred To Procedures Contact Gastroenterology and Diagnoses Crohn's Disease (HCC) Hepatology Referral ID Status Reason Start Date Expiration Date Visits Requ ested Visits Authorized [id number] Closed 11/02/2021 11/02/2022 1 1 Encounter Details Date Type Department Care Team Description 02/13/2022 Comprehensive Visit Division of Patrick, Crohn's Disease (HCC) (Primary Dx); Gastroenterology in Erica Alexander Noninfec tive Gastroenteritis And Colitis Unspecified; [place], [place] Venkatesh Infection Urinary Tract Recurrent; [address] Prolapse Rectal; [facility] Pelvic Floor Tension; [address] [place], Abnormal Uterine And Vaginal Bleeding Unspecified [phone] [place] [address] Social History Tobacco Use Types Packs/Day Years [...] How often do you attend rastafari or adventism Patient refused 01/09/2022 services? Do [...] getting her infusions through Dr. Paz at [facility]. From a Crohn's disease perspective [...] Link, Marilu Ellis M.D. [address] [place] [address] Scheduled Orders Name Type Priority Associated Diagnoses [...] Unspecified Gastroenterology and Outpatient Routine 1 Occur [facility] Hepatology office Referral starting visit (clinic) 02/13/2022 un til 05/16/2023 documented as of this encounter Results Vitamin B12 Assay (02/13/2022 11:34 AM CDT) P athologist Signature Vitamin B12 819 496 - 691 02/13/2022 DTL Assay, S ng/L 1:13 PM [...] M.D. LAB BLOOD ADD-ON Performing Organization Address City/[facility] Phon e Number [facility] - [address] [place], [place] [address] [place] [address] Laboratories-[facility] [address] 25-Hydroxyvitamin D2 and D3 [...] its performa nce characteristics determined by [facility] in a manner consistent with CLIA requirements. This test has not been cleared or approved by the U.S. Skylar d and Drug Administration. Specimen Anatomical Collection Method Collection Time Receive d Time (Source) Location / / Volume Laterality Blood (Blood, 02/13/2022 11:34 02/14/2022 7:12 Venous) AM CDT AM CDT Erica Nguyen M.D. LAB BLOOD ADD-ON Performing Organization Address City/[facility] Phon e Number [facility] [address] [place], [place] [address] [facility] [place] [address] Laboratory Medicine and Pathology [address] [...] City/State/ZIP Code Phon e Number [facility] - 200 [place], [place] [address] [facility] [place] [address] Laboratories-[facility] [address] [facility] (ABNORMAL) CBC with Differential, Blood (02/13/2022 11:34 AM CDT) [facility] gist Method Time Signature Hemoglobin 12.4 11.6 [...] City/State/ZIP Code Phon e Number [facility] - [address] [place], [place] [address] [facility] [place] [address] Laboratories-[facility] [address] documented in this encounter Visit Diagnoses Diagnosis Crohn's Disease (HCC) - Primary Noninfective Gastroenteritis And Colitis Unspecified Infection 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
--- OUTSIDE RECORDS SUMMARY | 2022-04-03 09:53 | XMS_ITS | Clinical Summary ---
:1955 Author Organization [facility] [place] [address] Care Team Providers Name Role Phone Hansa [...] (HC), Diarrhea, unspecified type, Periumbilical abdominal pain Oxyd-Pztunvvrc-Dguual Apply topically to 0 7 Active xy-Aldiox [...] Care Team Description 03/27/2022 Telephone Marquis Hussein Questi ons (inFLIXimab (REMICADE) 100 mg injection) 03/13/2022 Lab Requisition Maribel Laguna MD 01/11/2022 Telephone Marquis Hussein Questi ons (Remicade) from Last 3 Months Social History [...] CDT Respiratory Rate 18 06/25/2021 11:15 AM JET WIPER Oxygen Saturation 96% 12/05/2021 1:46 PM CDT [...] Organization Address City/State/ZIP Code Phon e Number [facility] [address] [place] [address] LABORATORY-CENTRAL 2000 LABORATORY PATH TISSUE EXAM (03/12/2022 12:00 PM CDT) Component Value Ref Test Analysis Performed At [facility] gist Range Method Time Signature Case Report Pathology Report ?Case: [id number] ? 03/14/2022 AMAYA Authorizing Provider: ??Maribel Laguna MD ?? Collected: ? 03/12/2022 1200 ? 11:51 AM HEALTH Ordering Location: ? [facility] ?Received: ?03/13/2022 1753 ? CDT [...] specimens. Additional 03/14/2022 [facility] Information Interpreted at [facility], Central Laboratory - [address], [place] [address] 11:51 AM HEALTH CDT LABORATORY-C ENTRAL LABORATORY Specimen Anatomical Collection Method Collection Time Receive d Time (Source) Location / / Volume Laterality Other 03/12/2022 12:00 03/13/2022 5:53 (Endometrial PM CDT PM CDT Biopsy) Maribel Laguna MD PATHOLOGY/CYTOLOGY Performing Organization Address City/State/ZIP Code Phon e Number [facility] [address] [place] [address] LABORATORY-CENTRAL 2000 LABORATORY from Last 3 Months Insurance Payer Benefit Plan / Subscriber ID Effective Dates Phone Addre ss Type Group MEDICARE - PB MEDICARE PB [id number] 2019-[place] ATTN : CLAIMS USE ONLY ONLY t [address] [place] [address] BLUE CROSS BL[employer] OF [id number] 2019-Kwabena [address] [facility] [place] [phone] (Home) TANESHA SEVILLA [address] Care Teams Employee Counselor Relationship Specialty Start Date End Date Hansa Doty MD PCP - General Internal Medicine 07/15/161999 [place] [address]
--- OUTSIDE RECORDS SUMMARY | 2022-04-03 09:53 | XMS_ITS ---
:1955 Author Care Team Providers Name Role Phone ANN GALVAN MD Primary Care Provider [phone] Allergies Code Code System Name Reaction Severity Status Onset 2670 RxNorm Codeine ? ? Active ? 383076 RxNorm Humira Rash ? Active ? 5487 RxNorm Hydrochlorothiazide Rash ? Active ? Medications Name Status Start Date Stop Date ? ? azithromycin 250 mg tablet Completed ? 10/24 benzonatate 200 mg capsule Completed ? 10/24 cefdinir 300 mg capsule Completed ? 10/25/19 Take 1 Capsule (300 mg) by mouth 2 times daily for 7 days. cephalexin 500 mg capsule Completed ? 2021 TAKE ONE CAPSULE BY MOUTH TWICE DAILY. Take with food. cyclobenzaprine 5 mg tablet Active ? Not available TAKE ONE TABLET (5 mg) BY MOUTH THREE T IMES DAILY As needed for muscle spasm, caution as it is sedating. erythromycin 5 mg/gram (0.5 %) eye ointment Completed ? 10/24/2021 fluocinonide 0.05 % topical ointment Active ? Not available Apply 1 application topically twice daily fosfomycin tromethamine 3 gram oral packet Active ? Not available MIX AND DRINK 1 PACKET BY MOUTH EVERY OTHER DAY FOR 3 DOSES furosemide 20 mg tablet Active ? Not avai lable TAKE ONE TABLET BY MOUTH ONE TIME DAILY lisinopril 20 mg tablet Active ? Not avai lable TAKE ONE TABLET BY MOUTH ONE TIME DAILY Myrbetriq 50 mg tablet,extended release Active ? Not available Take 1 tablet every day by oral route. nitrofurantoin monohydrate/macrocrystals 100 mg capsule Complete d ? 10/24/2021 TAKE ONE CAPSULE BY MOUTH TWICE DAILY omeprazole 40 mg capsule,delayed release Active ? Not available TAKE ONE CAPSULE BY MOUTH ONE TIME DAILY oxybutynin chloride ER 5 mg tablet,extended release 24 Active ? Not available hr Remicade 100 mg intravenous solution Active ? Not available Inject by intravenous route. sertraline 100 mg tablet Active ? Not john ilable TAKE 1 TALBET (100 MG) BY MOUTH ONCE DA MARIA DEL CARMEN; TAKE WITH ONE 50 MG TABLET FOR A TOTAL DAILY DOSE OF 150 MG. sertraline 50 mg tablet Active ? Not avai lable TAKE 1 TABLET (50 MG) BY MOUTH ONCE MYRON LY, TAKE ALONG WITH ONE 100 MG TABLET FOR A TOTAL OF 150 MG DAILY. simvastatin 40 mg tablet Active ? Not john ilable TAKE ONE TABLET BY MOUTH ONE TIME DAILY sulfamethoxazole 800 mg-trimethoprim 160 mg tablet Completed ? 10/24/2021 triamcinolone acetonide 0.1 % topical cream Active ? Not available APPLY 1 APPLICATION TOPICALLY 2 (TWO) T IMES A DAY UNDER WET WRAPS NEEDED FOR RASH. Problems None recorded. Procedures Date Name Performed by ? 06/23/2012 Colonoscopy Information not avai lable 06/23/2007 Insertion of Single Incision Mid-urethra l Mini-sling Information not available Notes: TVT ? Total Knee Replacement Information not a vailable Notes: 2016 Results Lab Results Date Name Specimen Result Interpretation Description Value Range Status Address ? 10/30/2021 Culture, UR ABNORMAL Final Report microbiology ? Final [place] [facility] [address] [facility] [address], [place] 10/30/2021 Urinalysis ? Color-Status Straw ? ? , Dipstick ? ? ? Clarity-Stat Slightly ? ? us Cloudy ? ? ? Glucose-Stat Negative ? ? us ? ? ? Bilirubin-St Negative ? ? atus ? ? ? Ketones-Stat Negative ? ? us ? ? ? Nitrates-Sta positive ? ? tus ? ? ? Blood-Status Trace ? Leuko-Status Small ? ? 10/30/2021 Urinalysis ? No ? ? ? , Dipstick observation recorded. 10/24/2021 Urinalysis ? Color-Status Yellow ? ? , Dipstick ? ? ? Clarity-Stat Clear ? ? us 10/24/2021 Urinalysis ? No ? ? ? , Dipstick observation recorded. Past Encounters 10/30/2021 Urinary Tract Infectious Disease Clay Hernandez MD: [address], [place] [address], Ph. 10/24/2021 Mixed Urinary Incontinence Clay Hernandez MD: [address], [place] [address], Ph. Social History Tobacco Smoking Status Former Smoker Vaccine List None recorded. Plan of Care Patient Instructions Patient was given Keflex 500mg Patient is to take 2 cap 2 X per day for 3 days. Reminders Provider Appointments None recorded. ? ? Lab None recorded. ? ? Referral None recorded. ? ? Procedures None recorded. ? ? Surgeries None recorded. ? ? Imaging None recorded. ? ? Vitals Height Weight BMI 5 ft 5 in 219 lbs 36.4 kg/m2
--- OUTSIDE RECORDS SUMMARY | 2022-04-03 09:53 | XMS_ITS | Encounter Summary ---
:1955 Author Organization [facility] Address [address] [place] [address] Care Team Providers Name Role Phone Unavailable Primary Care Provider Unavailable Encounter Details Date Type Department Care Team Description 02/13/2022 Hospital Encounter Department of Patrick, Noninfec tive Gastroenteritis And Colitis Unspecified; Laboratory Medicine Ana Craig Crohn's Disease (HCC); and Pathology, [address] [place] [address] Infection Urinary Tract Recurrent; [facility], in [place], [place] Prolaps e Rectal; [facility] [phone] Pelvic Floor Tension; [place] [phone] Abnormal Uterine And Vaginal Bleeding Unspecified [address] [facility] (Work) [place], [place] [phone] (Fax) [phone] Social History Tobacco Use Types Packs/Day Years [...] How often do you attend evangelical or protestant Patient refused 01/09/2022 services? Do you belong [...] Dermatology Link, Marilu Ellis M.D. [address] [place] [address] documented as of this encounter Procedures Procedure [...] 11:34 AM CDT) athologist Signature Vitamin B12 [phone] 161 02/13/2022 DT Assay, S ng/L 1:13 PM [...] Address City/State/ZIP Code Phon e Number [facility] - [address] [place], [place] [address] [facility] [place] [address] [facility] [address] 25-Hydroxyvitamin D2 and D3 (02/13/2022 11:34 AM CDT) athologist Signature 25-Hydroxy D2 <4.0 ng/mL 02[facility]22 [facility] CDT 25-Hydroxy D3 48 ng/mL 02/14/2022 [facility] 10:48 PM CDT 25-Hydroxy D 48 ng/mL 02/14/2022 [facility] Total 10:48 PM CDT Comment: ----REFERENCE VALUE---- 25-HYDROXY D TOTAL (D2+D3) Optimum level s in the healthy population are 20-50, patients with bone disease may benefit from higher levels within this r patricia. ----ADDITIONAL INFORMATION---- This test was developed and its performa nce characteristics determined by [facility] in a manner consistent with CLIA requirements. [...] Address City/State/ZIP Code Phon e Number [facility] [address] [place], [place] [address] [address] [facility] [facility] [address] Laboratory Medicine and Pathology [address] [...] Address City/State/ZIP Code Phon e Number [facility] - [address] [place], [place] [address] [facility] [place] [address] [facility] [address] (ABNORMAL) CBC with Differential, Blood (02/13/2022 11:34 AM CDT) [facility] gist Method Time Signature Hemoglobin 12.4 [...] Address City/State/ZIP Code Phon e Number [facility] - [address] [place], [place] [address] [facility] [place] [address] [facility] [address] documented in this encounter Visit Diagnoses Diagnosis Noninfective Gastroenteritis And Colitis Unspecified Crohn's Disease (HCC) Infection 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
--- OUTSIDE RECORDS SUMMARY | 2022-04-03 09:53 | XMS_ITS | Encounter Summary ---
:1955 Author Organization [facility] Address [address] [place] [address] Care Team Providers Name Role Phone Unavailable [...] or relatives? How often do you attend religious or hinduism Patient refused 01/09/2022 services? Do you belong to any clubs or organizations Yes 01/09/2022 such as religious groups, unions, fraternal or athletic groups, or [...] slept in a long term (including now)? Education Answer Date Recorded What [...] Dermatology Link, Marilu Ellis M.D. [address] [place] [address] documented as of this encounter Procedures Procedure [...]
--- OUTSIDE RECORDS SUMMARY | 2022-04-03 09:53 | XMS_ITS | Encounter Summary ---
:1955 Author Organization [facility] Address [address] [place] [address] Care Team Providers Name Role Phone Unavailable Primary Care Provider Unavailable Encounter Details Date Type Department Care Team Description 02/12/2022 Orders Only Pharmacy Prior Auth Kenia Solomon [phone] Social History Tobacco Use Types Packs/Day Years [...] How often do you attend denominational or christian Patient refused 01/09/2022 services? Do [...] slept in a senior care (including now)? Education Answer Date Recorded What [...] Visit Dermatology Marilu Majano M.D. [address] [place] [address] documented as of this encounter Visit Diagnoses Not on filedocumented in this encounter
--- OUTSIDE RECORDS SUMMARY | 2022-04-03 09:54 | XMS_ITS | Encounter Summary ---
:1955 Author Organization [facility] Address [address] [place] [address] Care Team Providers Name Role Phone Unavailable Primary Care Provider Unavailable Encounter Details Date Type Department Care Team Description 02/16/2009 Hospital Encounter HX [facility] INPT/OBSRV Kala Mast M.D. [address] [place] [address] (Wo rk) Social History [...] How often do you attend gnosticism or alevism Patient refused 01/09/2022 services? Do you belong [...] Office Visit Dermatology Marilu Majano M.D. 200 [place] [address] documented as of this encounter Visit Diagnoses Not on filedocumented in this encounter
--- OUTSIDE RECORDS SUMMARY | 2022-04-03 09:54 | XMS_ITS | Encounter Summary ---
:1955 Author Organization [facility] Address [address] [place] [address] Care Team Providers Name Role Phone Unavailable Primary Care Provider Unavailable Reason for Referral Outpatient (Routine) - Closed Specialty Diagnoses / Procedures Referred By Contact Refer red To Contact Diagnoses Psoriasis Marilu Majano M.D. [facility] Procedures DX Hand Bilateral 2 Views and Wrist Bilateral 2 Views [address] [place] [phone] Referral ID Status Reason Start Date Expiration Date Visits Requ ested Visits Authorized [id number] Closed 11/12/2021 11/12/2022 1 1 Reason for Visit Outpatient (Routine) - Closed Specialty Diagnoses / Procedures Referred By Contact Refer red To Contact Diagnoses Psoriasis Marilu Majano M.D. [facility] Procedures DX Hand Bilateral 2 Views and Wrist Bilateral 2 Views [address] [place] [phone] Referral ID Status Reason Start Date Expiration Date Visits Requ ested Visits Authorized [id number] Closed 11/12/2021 11/12/2022 1 1 Encounter Details Date Type Department Care Team Description 11/12/2021 Hospital Encounter Department of Radiology, Marilu Majano M.D. [facility], in [address] [place] [address] [address] [facility] [address] [place] [address] [phone] Social History Tobacco Use Types Packs/Day Years [...] How often do you attend cheondoism or episcopal Patient refused 01/09/2022 services? Do [...] Dermatology Link, Marilu Ellis M.D. [address] [place] [address] documented as of this encounter Procedures Procedure [...]
--- OUTSIDE RECORDS SUMMARY | 2022-04-03 09:54 | XMS_ITS | Encounter Summary ---
:1955 Author Organization [facility] Address [address] [place] [address] Care Team Providers Name Role Phone Unavailable [...] How often do you attend rastafari or jew Patient refused 01/09/2022 services? Do [...] 05/23/2022 Office Visit Dermatology [place] [address] documented as of this encounter Visit Diagnoses Not on filedocumented in this encounter
--- OUTSIDE RECORDS SUMMARY | 2022-04-03 09:54 | XMS_ITS | Encounter Summary ---
:1955 Author Organization [facility] Address [address] [place] [address] Care Team Providers Name Role Phone Unavailable Primary Care Provider Unavailable Encounter Details Date Type Department Care Team Description 02/08/2022 Orders Only Department of Dermatology in Marilu Riggins M.D. [place], [place] [address] [facility] [address] [place] [address] [phone] (Wo rk) Social History Tobacco Use Types [...] How often do you attend adventist or denominational Patient refused 01/09/2022 services? Do [...] or slept in a prison (including now)? Education Answer Date Recorded What [...] Office Visit Dermatology Marilu Majano M.D. 200 [place] [address] documented as of this encounter Visit Diagnoses Not on filedocumented in this encounter
--- OUTSIDE RECORDS SUMMARY | 2022-04-03 09:54 | XMS_ITS | Encounter Summary ---
:1955 Author Organization [facility] Address [address] [place] [address] Care Team Providers Name Role Phone Unavailable [...] How often do you attend uatsdin or bahai Patient refused 01/09/2022 services? Do [...] Dermatology Marilu Majano M.D. [address] [place] [address] documented as of this encounter Visit Diagnoses Not on filedocumented in this encounter
--- OUTSIDE RECORDS SUMMARY | 2022-04-03 09:54 | XMS_ITS | Encounter Summary ---
:1955 Author Organization [facility] Address [address] [place] [address] Care Team Providers Name Role Phone Unavailable Primary Care Provider Unavailable Encounter Details Date Type Department Care Team Description 03/09/2009 - Hospital Encounter HX [facility] Valeria Capellan M.D. 10/07/2009 [address] [place] [address] (Wo rk) Social History Tobacco Use Types [...] How often do you attend christian or confucianism Patient refused 01/09/2022 services? Do [...] Link, Marilu Ellis M.D. [address] [place] [address] documented as of this encounter Procedures Procedure Name Priority Date/Time Associated Comments Diagnosis CT UROGRAM WITH IV Routine 07/13/2009 11:33 Resul ts for this CONTRAST WITH 3D AM YEAST SUPERVISOR procedure a re in DEPENDENT WORKSTATION the re sults section. BI ULTRASOUND EXAM Routine 03/09/2009 1:24 PM Res ults for this CDT procedure are i n the results section. documented in this encounter Results CT Urogram with IV Contrast with 3D Dependent Workstation (07/13/2009 11:33 AM YEAST SUPERVISOR) Anatomical Region Laterality Modality Abdomen, Pelvis Computed Tomography Specimen (Source) Anatomical Collection Method Collection Time Re ceived Time Location / / Volume Laterality 07/13/2009 11:33 AM YEAST SUPERVISOR Narrative 07/13/2009 11:54 AM YEAST SUPERVISOR 13-Jul-2009 11:33:00 ??Exam: CT Urogram w 3D [...] Electronically signed by: ?? [place] [id number] 13-Jul-2009 11:54 ?Jose Kumar MD [phone] 13-Jul-2009 11:54 Procedure Note Jose Kumar M.D. [...] [id number] Electronically [place]: [place] [id number] [id number] 13-Jul-2009 11:54 Jose Kumar MD [phone] 13-Jul-2009 11:54 Gali Porter M[address]D. IMTong CT [...]
--- OUTSIDE RECORDS SUMMARY | 2022-04-03 09:54 | XMS_ITS | Encounter Summary ---
:1955 Author Organization [facility] Address [address] [place] [address] Care Team Providers Name Role Phone Unavailable Primary Care Provider Unavailable Reason for Visit Reason Comments Pre-visit Intake Encounter Details Date Type Department Care Team Description 01/14/2022 Clinical Communication Visit Review in Pr e-visit Intake [place], [place] [address] [place], [place] [phone] Social History Tobacco Use Types Packs/Day Years [...] How often do you attend sikhism or yarsanism Patient refused 01/09/2022 services? Do you belong [...] Visit Dermatology Marliu Majano M.D. [address] [place] [address] documented as of this encounter Visit Diagnoses Not on filedocumented in this encounter
--- OUTSIDE RECORDS SUMMARY | 2022-04-03 09:54 | XMS_ITS | Encounter Summary ---
:1955 Author Organization [facility] Address [address] [place] [address] Care Team Providers Name Role Phone Unavailable [...] or relatives? How often do you attend alevism or methodist Patient refused 01/09/2022 services? Do you belong to any clubs or organizations Yes 01/09/2022 such as alevism groups, unions, fraternal or athletic groups, or [...] Visit Dermatology Marilu Majano M.D. [address] [place] [address] documented as of this encounter Visit Diagnoses Not on filedocumented in this encounter
--- OUTSIDE RECORDS SUMMARY | 2022-04-03 09:54 | XMS_ITS | Encounter Summary ---
:1955 Author Organization [facility] Address [address] [place] [address] Care Team Providers Name Role Phone Unavailable Primary Care Provider Unavailable Reason for Referral Outpatient (Routine) - Closed Specialty Diagnoses / Procedures Referred By Contact Refer red To Contact Diagnoses Psoriasis Marilu Majano M.D. [facility] Procedures DX Foot Ankle Bilateral 3+ Views [address] [place] [phone] Referral ID Status Reason Start Date Expiration Date Visits Requ ested Visits Authorized [id number] Closed 11/12/2021 11/12/2022 1 1 Reason for Visit Outpatient (Routine) - Closed Specialty Diagnoses / Procedures Referred By Contact Refer red To Contact Diagnoses Psoriasis Marilu Majano M.D. [facility] Procedures DX Foot Ankle Bilateral 3+ Views [address] [place] [phone] Referral ID Status Reason Start Date Expiration Date Visits Requ ested Visits Authorized [id number] Closed 11/12/2021 11/12/2022 1 1 Encounter Details Date Type Department Care Team Description 11/12/2021 Hospital Encounter Department of Radiology, Marilu Majano M.D. [facility], in [address] [place] [address] [address] [facility] [address] [place] [address] [phone] Social History Tobacco Use Types Packs/Day Years [...] How often do you attend rastafarian or oriental orthodox Patient refused 01/09/2022 services? [...] Dermatology Link, Marilu Ellis M.D. [address] [place] [address] documented as of this encounter Procedures Procedure [...]
--- OUTSIDE RECORDS SUMMARY | 2022-04-03 09:54 | XMS_ITS | Encounter Summary ---
:1955 Author Organization [facility] Address [address] [place] [address] Care Team Providers Name Role Phone Unavailable Primary Care Provider Unavailable Reason for Referral Outpatient (Routine) - Closed Specialty Diagnoses / Procedures Referred By Contact Refer red To Contact Dermatology Diagnoses Psoriasis Hansa Doty M.D. [facility] [address] [place] [address] Referral ID Status Reason Start Date Expiration Date Visits Requ ested Visits Authorized [id number] Closed 11/07/2021 11/07/2022 1 1 Encounter Details Date Type Department Care Team Description 11/07/2021 [facility] Hansa Doty Psoriasis (Primary AND CLINICS Venkatesh Pena Dx) 1999 [facility] [address] [place] [address] [phone] Social History Tobacco Use Types Packs/Day Years [...] How often do you attend alevism or pentecostal Patient refused 01/09/2022 services? Do you belong [...] Visit Dermatology Marilu Majano M.D. [address] [place] [address] Scheduled Referrals Name Type Priority Associated Order Schedule Diagnoses Dermatology Referral Outpatient Referral Routine Psoriasis Expected: 11/07/2021 (Approximate), Expires: 02/07/2023 documented as of this encounter Visit Diagnoses Diagnosis Psoriasis - Primary documented in this encounter
--- OUTSIDE RECORDS SUMMARY | 2022-04-03 09:54 | XMS_ITS | Encounter Summary ---
:1955 Author Organization [facility] Address [address] [place] [address] Care Team Providers Name Role Phone Unavailable Primary Care Provider Unavailable Encounter Details Date Type Department Care Team Description 04/27/2009 Hospital Encounter HX [facility] INPT/OBSRV Irene Mahoney M.D. [address] [place] [address] (Wo rk) Social History Tobacco Use Types [...] Visit Dermatology Link, Marilu Ellis M.D. 200 [place] [address] documented as of this encounter Visit Diagnoses Not on filedocumented in this encounter
--- OUTSIDE RECORDS SUMMARY | 2022-04-03 09:54 | XMS_ITS | Encounter Summary ---
:1955 Author Organization [facility] Address [address] [place] [address] Care Team Providers Name Role Phone Unavailable Primary Care Provider Unavailable Encounter Details Date Type Department Care Team Description 11/27/2021 Orders Only Department of Melecio, Marilu Ellis, Psoriasis Vu lgaris (Primary Dx); Dermatology in M.D. Psoriasis [place]; [place], [place] [address] [email or web address] Psoriasis [address] [place] [address] [phone] Social History Tobacco Use Types Packs/Day Years [...] or relatives? How often do you attend roman catholic or jew Patient refused 01/09/2022 services? Do you belong to any clubs or organizations Yes 01/09/2022 such as roman catholic groups, unions, fraternal or athletic groups, or [...] Dermatology Link, Marilu Ellis M.D. [address] [place] [address] documented as of this encounter Visit Diagnoses Diagnosis Psoriasis Vulgaris - Primary Psoriasis [place] Psoriasis documented in this encounter
--- OUTSIDE RECORDS SUMMARY | 2022-04-03 09:54 | XMS_ITS | Encounter Summary ---
:1955 Author Organization [facility] Address [address] [place] [address] Care Team Providers Name Role Phone Unavailable Primary Care Provider Unavailable Encounter Details Date Type Department Care Team Description 03/31/2009 Hospital Encounter [facility] INPT/OBSRV Kala Mast M.D. [address] [place] [address] (Wo rk) Social History [...] How often do you attend holiness or catholic Patient refused 01/09/2022 services? Do you belong [...] Office Visit Dermatology Marilu Majano M.D. 200 [place] [address] documented as of this encounter Visit Diagnoses Not on filedocumented in this encounter
--- OUTSIDE RECORDS SUMMARY | 2022-04-03 09:54 | XMS_ITS | Encounter Summary ---
:1955 Author Organization [facility] Address [address] [place] [address] Care Team Providers Name Role Phone Unavailable Primary Care Provider Unavailable Encounter Details Date Type Department Care Team Description 03/14/2009 Hospital Encounter HX [facility] INPT/OBSRV Kala Mast M.D. [address] [place], [place] [address] (Wo rk) Social History [...] How often do you attend judaism or denominational Patient refused 01/09/2022 services? Do [...] Office Visit Dermatology Marilu Majano M.D. 200 [place] [address] documented as of this encounter Visit Diagnoses Not on filedocumented in this encounter
--- OUTSIDE RECORDS SUMMARY | 2022-04-03 09:54 | XMS_ITS | Encounter Summary ---
:1955 Author Organization [facility] Address [address] [place] [address] Care Team Providers Name Role Phone Unavailable Primary Care Provider Unavailable Encounter Details Date Type Department Care Team Description 11/14/2021 Orders Only Pharmacy Prior Auth Melinda Lauren [phone] Social History Tobacco Use Types Packs/Day Years [...] How often do you attend mandaen or nondenominational Patient refused 01/09/2022 services? Do [...] Office Visit Dermatology Marilu Majano M.D. [address] [place] [address] documented as of this encounter Visit Diagnoses Not on filedocumented in this encounter
--- OUTSIDE RECORDS SUMMARY | 2022-04-03 09:54 | XMS_ITS | Encounter Summary ---
:1955 Author Organization [facility] Address [address] [place] [address] Care Team Providers Name Role Phone Unavailable [...] How often do you attend baptism or roman catholic Patient refused 01/09/2022 services? Do you [...] Visit Dermatology Marilu Majano M.D. [address] [place] [address] documented as of this encounter Procedures Procedure [...]
--- OUTSIDE RECORDS SUMMARY | 2022-04-03 09:54 | XMS_ITS | Encounter Summary ---
:1955 Author Organization [facility] Address [address] [place] [address] Care Team Providers Name Role Phone Unavailable Primary Care Provider Unavailable Encounter Details Date Type Department Care Team Description 01/12/2009 - Hospital Encounter HX [facility] Valeria Capellan M.D. 10/07/2009 [address] [place] [address] (Wo rk) Social History Tobacco Use Types [...] How often do you attend jainism or yarsani Patient refused 01/09/2022 services? Do [...] Office Visit Dermatology Marilu Majano M.D. 200 [place] [address] documented as of this encounter Visit Diagnoses Not on filedocumented in this encounter
--- OUTSIDE RECORDS SUMMARY | 2022-04-03 09:54 | XMS_ITS | Encounter Summary ---
:1955 Author Organization [facility] Address [address] [place] [address] Care Team Providers Name Role Phone Unavailable Primary Care Provider Unavailable Encounter Details Date Type Department Care Team Description 03/02/2015 Historical Ophthalmology RST OPH Hood Chand M.D., Ph.D. [address] [place], [place] [phone] (Wo rk) Social History [...] How often do you attend bahai or jain Patient refused 01/09/2022 services? Do [...] On February 01, 2015, she saw her prison psychiatrist, Dr. Liu for evaluation of this. She [...] gland dysfunction CDM Reports - EYEGEN Id: [id number] Status: Fnl documented in this encounter Plan of Treatment Upcoming Encounters Date Type Specialty Care Team Description 05/22/2022 Clinical Communication Admitting/Central Scheduling 05/23/2022 Office Visit Dermatology Melecio, Marilu Ellis M.D. [address] [place] [address] documented as of this encounter Visit Diagnoses Not on filedocumented in this encounter
--- OUTSIDE RECORDS SUMMARY | 2022-04-03 09:54 | XMS_ITS | Encounter Summary ---
:1955 Author Organization [facility] Address [address] [place] [address] Care Team Providers Name Role Phone Unavailable Primary Care Provider Unavailable Encounter Details Date Type Department Care Team Description 11/16/2021 Orders Only Pharmacy Prior Auth Yadi Barbour [phone] Social History Tobacco Use Types Packs/Day Years [...] How often do you attend rastafari or amish Patient refused 01/09/2022 services? Do [...] or slept in a residential (including now)? Sex Assigned at Date Recorded Female 01/09/2022 4:35 PM CDT documented as of this encounter Plan of Treatment Upcoming Encounters Date Type Specialty Care Team Description 05/22/2022 Clinical Communication Admitting/Central Scheduling 05/23/2022 Office Visit Dermatology Marilu Majano M.D. [address] [place] [address] documented as of this encounter Visit Diagnoses Not on filedocumented in this encounter
--- OUTSIDE RECORDS SUMMARY | 2022-04-03 09:54 | XMS_ITS | Encounter Summary ---
:1955 Author Organization [facility] Address [address] [place] [address] Care Team Providers Name Role Phone Unavailable Primary Care Provider Unavailable Reason for Visit Reason Comments Rx Prior Authorization DANNA DENIED - [place]ENE 0. 005% OINTMENT Encounter Details Date Type Department Care Team Description 11/26/2021 Clinical Pharmacy Prior Car [facility] Prior Communication Auth [id number] Authorization (DANNA DENIED - [place] 0 .005% [...] How often do you attend hinduism or oriental orthodox Patient refused 01/09/2022 services? [...] Visit Dermatology Marilu Majano M.D. [address] [place] [address] documented as of this encounter Visit Diagnoses Not on filedocumented in this encounter
--- OUTSIDE RECORDS SUMMARY | 2022-04-03 09:54 | XMS_ITS | Encounter Summary ---
:1955 Author Organization [facility] Address [address] [place] [address] Care Team Providers Name Role Phone Unavailable [...] How often do you attend zoroastrian or nondenominational Patient refused 01/09/2022 services? Do [...] Dermatology Link, Marilu Ellis M.D. [address] [place] [address] documented as of this encounter Procedures Procedure [...]
--- OUTSIDE RECORDS SUMMARY | 2022-04-03 09:54 | XMS_ITS | Encounter Summary ---
:1955 Author Organization [facility] Address [address] [place] [address] Care Team Providers Name Role Phone Unavailable Primary Care Provider Unavailable Encounter Details Date Type Department Care Team Description 11/26/2021 Orders Only Department of Dermatology in [place], [place] MElvisDElvis [address] [facility] [address] [place] [address] [place], [place] [phone] (Wo rk) Social History Tobacco Use Types [...] or relatives? How often do you attend advent or yazidism Patient refused 01/09/2022 services? Do you belong to any clubs or organizations Yes 01/09/2022 such as advent groups, unions, fraternal or athletic groups, or [...] Dermatology Link, Marilu Ellis M.D. [address] [place] [address] documented as of this encounter Visit Diagnoses Not on filedocumented in this encounter
--- OUTSIDE RECORDS SUMMARY | 2022-04-03 09:54 | XMS_ITS | Encounter Summary ---
:1955 Author Organization [facility] Address [address] [place] [address] Care Team Providers Name Role Phone Unavailable Primary Care Provider Unavailable Encounter Details Date Type Department Care Team Description 11/26/2021 Orders Only Pharmacy Prior Auth [facility] [phone] Social History Tobacco Use Types Packs/Day Years [...] How often do you attend taoism or christianity Patient refused 01/09/2022 services? Do you belong [...] 05/23/2022 Office Visit Dermatology Marilu Majano M.D. [address] [place] [address] documented as of this encounter Visit Diagnoses Not on filedocumented in this encounter
--- OUTSIDE RECORDS SUMMARY | 2022-04-03 09:54 | XMS_ITS | Encounter Summary ---
:1955 Author Organization [facility] Address [address] [place] [address] Care Team Providers Name Role Phone Unavailable Primary Care Provider Unavailable Encounter Details Date Type Department Care Team Description 11/10/2008 Hospital Encounter [facility] INPT/OBSRV Kala Mast M.D. [address] [place] [address] (Wo rk) Social History [...] How often do you attend yazidi or alevism Patient refused 01/09/2022 services? Do [...] Office Visit Dermatology Marilu Majano M.D. 200 [place] [address] documented as of this encounter Visit Diagnoses Not on filedocumented in this encounter
--- OUTSIDE RECORDS SUMMARY | 2022-04-03 09:54 | XMS_ITS | Encounter Summary ---
:1955 Author Organization [facility] Address [address] [place] [address] Care Team Providers Name Role Phone Unavailable Primary Care Provider Unavailable Encounter Details Date Type Department Care Team Description 12/02/2008 Hospital Encounter [facility] INPT/OBSRV Kala Mast M.D. [address] [place], [place] [address] (Wo rk) Social History [...] How often do you attend yazidism or moravian Patient refused 01/09/2022 services? Do [...] Office Visit Dermatology Marilu Majano M.D. 200 [place] [address] documented as of this encounter Visit Diagnoses Not on filedocumented in this encounter
--- OUTSIDE RECORDS SUMMARY | 2022-04-03 09:54 | XMS_ITS | Encounter Summary ---
:1955 Author Organization [facility] Address [address] [place] [address] Care Team Providers Name Role Phone Unavailable Primary Care Provider Unavailable Encounter Details Date Type Department Care Team Description 02/02/2009 Hospital En[facility] INPT[facility]OBSRV Kala Mast M.D. [address] [place] [address] (Wo rk) Social History [...] How often do you attend mormon or congregational Patient refused 01/09/2022 services? Do [...] Office Visit Dermatology Marilu Majano M.D. 200 [place] [address] documented as of this encounter Visit Diagnoses Not on filedocumented in this encounter
--- OUTSIDE RECORDS SUMMARY | 2022-04-03 09:54 | XMS_ITS | Encounter Summary ---
:1955 Author Organization [facility] Address [address] [place] [address] Care Team Providers Name Role Phone Unavailable [...] How often do you attend anabaptist or quaker Patient refused 01/09/2022 services? Do you belong [...] Visit Dermatology Marilu Majano M.D. [address] [place] [address] documented as of this encounter Visit Diagnoses Not on filedocumented in this encounter
--- OUTSIDE RECORDS SUMMARY | 2022-04-03 09:54 | XMS_ITS | Encounter Summary ---
:1955 Author Organization [facility] Address [address] [place] [address] Care Team Providers Name Role Phone Unavailable Primary Care Provider Unavailable Encounter Details Date Type Department Care Team Description 04/14/2009 Hospital Encounter HX [facility], INPT/OBSRV M.DElvis [address] [address] (Wo rk) Social History Tobacco [...] How often do you attend scientology or evangelical Patient refused 01/09/2022 services? Do you belong [...] Office Visit Dermatology Marilu Majano M.D. 200 [place] [address] documented as of this encounter Visit Diagnoses Not on filedocumented in this encounter
--- OUTSIDE RECORDS SUMMARY | 2022-04-03 09:54 | XMS_ITS | Encounter Summary ---
:1955 Author Organization [facility] Address [address] [place] [address] Care Team Providers Name Role Phone Unavailable Primary Care Provider Unavailable Reason for Referral Outpatient (Routine) - Closed Specialty Diagnoses / Procedures Referred By Contact Refer red To Contact Dermatology Diagnoses Psoriasis Marilu Majano M.D. [facility] 200 [place] [address] Referral ID Status Reason Start Date Expiration Date Visits Requ ested Visits Authorized [id number] Closed 11/12/2021 11/12/2022 1 1 Scheduling Instructions Psoriasis follow up utpatient (Routine) - Closed Specialty Diagnoses / Procedures Referred By Contact Refer red To Contact Diagnoses Marilu Millan M.D. [facility] Procedures DX Hand Bilateral 2 Views and Wrist Bilateral 2 Views 200 [place], [place] [phone] Referral ID Status Reason Start Date Expiration Date Visits Requ ested Visits Authorized [id number] Closed 11/12/2021 11/12/2022 1 1 utpatient (Routine) - Closed Specialty Diagnoses / Procedures Referred By Contact Refer red To Contact Diagnoses Psoriasis Marilu Majano M.D. [facility] Procedures DX Foot Ankle Bilateral 3+ Views 200 [place], [place] [phone] Referral ID Status Reason Start Date Expiration Date Visits Requ ested Visits Authorized [id number] Closed 11/12/2021 11/12/2022 1 1 Reason for Visit Outpatient (Routine) - Closed Specialty Diagnoses / Procedures Referred By Contact Refer red To Contact Dermatology Diagnoses Psoriasis Hansa Doty M.D. [address] [address] Referral ID Status Reason Start Date Expiration Date Visits Requ ested Visits Authorized [id number] Closed 11/07/2021 11/07/2022 1 1 Encounter Details Date Type Department Care Team Description 11/12/2021 Comprehensive Visit Department of Marilu Majano Psori asis (Primary Dx); Dermatology in [place] Dermatitis Psoriasiform; [place], [place] [address] [facility] Dermatitis Asteatotic Xerotic; [address] [place], [place] [address] [phone] Social History Tobacco Use Types Packs/Day Years [...] How often do you attend gnosticism or latter day Patient refused 01/09/2022 services? [...] PM CDT Correspondence to Hansa Underwood M.D. [address] [place] [id number] CHIEF COMPLAINT / REASON FOR VISIT Psoriasis HISTORY OF PRESENT ILLNESS Ms. Brittaney Anguiano TRACI Roland is a 66 y.o. female who presents today for the above. She was last seen in Dermatology at [facility] in 2012. She reports she has had a skin biopsy at outside institution, butnot sure what it showed. She has not had biopsies at [facility]. She also has a history of Crohn's [...] She will be meeting with GI at [facility] after several years in December 2021, and [...] Visit Dermatology Marilu Majano M.D. [address] [place] [address] Scheduled Referrals Name Type Priority Associated Order [...] jake nt, likely degenerative. Marilu Majano M.D. [facility] PROCE DURES DX Foot Ankle [...]
--- OUTSIDE RECORDS SUMMARY | 2022-04-03 09:54 | XMS_ITS | Encounter Summary ---
:1955 Author Organization [facility] Address [address] [place] [address] Care Team Providers Name Role Phone Unavailable [...] How often do you attend scientology or mosque Patient refused 01/09/2022 services? Do [...] Visit Dermatology Link, Marilu Ellis M.D. 200 [place] [address] documented as of this encounter Visit Diagnoses Not on filedocumented in this encounter
--- OUTSIDE RECORDS SUMMARY | 2022-04-03 09:54 | XMS_ITS | Encounter Summary ---
:1955 Author Organization [facility] Address [address] [place] [address] Care Team Providers Name Role Phone Unavailable Primary Care Provider Unavailable Encounter Details Date Type Department Care Team Description 12/08/2008 Hospital Encounter [facility] INPT/OBSRV Kala Mast M.D. [address] [place], [place] [address] (Wo rk) Social History [...] How often do you attend zoroastrianism or restoration Patient refused 01/09/2022 services? Do [...] Office Visit Dermatology Marilu Majano M.D. 200 [place] [address] documented as of this encounter Visit Diagnoses Not on filedocumented in this encounter
--- OUTSIDE RECORDS SUMMARY | 2022-04-03 09:54 | XMS_ITS | Encounter Summary ---
:1955 Author Organization [facility] Address [address] [place] [address] Care Team Providers Name Role Phone Unavailable [...] or relatives? How often do you attend spiritism or rastafarian Patient refused 01/09/2022 services? Do you belong to any clubs or organizations Yes 01/09/2022 such as spiritism groups, unions, fraternal or athletic groups, or [...] Dermatology Link, Marilu Ellis M.D. [address] [place] [address] documented as of this encounter Visit Diagnoses Not on filedocumented in this encounter
--- OUTSIDE RECORDS SUMMARY | 2022-04-03 09:54 | XMS_ITS | Encounter Summary ---
:1955 Author Organization [facility] Address [address] [place] [address] Care Team Providers Name Role Phone Unavailable [...] How often do you attend yarsani or adventist Patient refused 01/09/2022 services? Do [...] Visit Dermatology Marilu Majano M.D. [address] [place] [address] documented as of this encounter Procedures Procedure Name Priority Date/Time Associated Diagnosis Comme nts PLASTIC AND RECON Routine 08/24/2009 4:35 AM Resu lts for this SURGERY IMAGE EXAM TOOL CHECKER procedure are in the results section. documented in this encounter Results PLASTIC AND RECON SURGERY IMAGE EXAM (08/24/2009 4:35 AM TOOL CHECKER) Specimen (Source) Anatomical Location Collection Method / [...]
--- OUTSIDE RECORDS SUMMARY | 2022-04-03 09:54 | XMS_ITS | Encounter Summary ---
:1955 Author Organization [facility] Address [address] [place] [address] Care Team Providers Name Role Phone Unavailable Primary Care Provider Unavailable Reason for Referral Outpatient (Routine) - Authorized Specialty Diagnoses / Procedures Referred By Contact Refer red To Contact Dermatology Diagnoses Dermatitis Asteatotic Xerotic Marilu Majano M.D. [address] [address] Referral ID Status Reason Start Date Expiration Date Visits V isits Requested Authorized [id number] Authorized 02/08/2022 02/07/2025 1 1 Scheduling Instructions 3-4 months. Asteatotic dermatitis with Ron Majano edication Prior Authorization - Authorized Specialty Diagnoses / Procedures Referred By Contact Refer red To Contact Diagnoses Dermatitis Asteatotic Xerotic Marilu Majano M.D. [address] [place] [phone] Referral ID Status Reason Start Date Expiration Date Visits V isits Requested Authorized [id number] Authorized 06/23/2021 06/22/2022 1 1 Reason for Visit Outpatient (Routine) - Closed Specialty Diagnoses / Procedures Referred By Contact Refer red To Contact Dermatology Diagnoses Psoriasis Marilu Majano M.D. [address] [phone] Referral ID Status Reason Start Date Expiration Date Visits Requ ested Visits Authorized [id number] Closed 11/12/2021 11/12/2022 1 1 Encounter Details Date Type Department Care Team Description 02/08/2022 Office Visit Department of Melecio, Marilu Ellis, Dermatitis A steatotic Xerotic (Primary Dx); Dermatology in [place] Furunculosis; [place], [place] [address] [facility] Keratosis Seborrheic Inflamed [address] [place] [address] [phone] Social History Tobacco Use Types Packs/Day Years [...] or relatives? How often do you attend shinto or quaker Patient refused 01/09/2022 services? Do you belong to any clubs or organizations Yes 01/09/2022 such as shinto groups, unions, fraternal or athletic groups, or [...] or slept in a detention (including now)? Education Answer Date Recorded What is the highest level of school Bachelor's degree (e.g., BA, AB, 01/09/2022 you have completed or the highest BS) degree you have received? Sex Assigned at Date Recorded Female 01/09/2022 4:35 PM CDT documented as of this encounter Progress Notes Shawnee Amaral M.D. - 02/08/2022 11:00 AM CDT REFERRAL: Marilu Majano M.D. [address] [place] [address] Correspondence to: Marilu Majano M.D. Supervised by: Marilu Majano M.D. Patient seen and discussed with supervising it support consultant, who evaluated the patient and concurs [...] and benefits of switching to [facility] with [facility] team. Patient has upcoming appointment on [...] Office Visit Dermatology Link, Marilu Ellis M.D. [address] [place] [phone] Scheduled Referrals Name Type Priority Associated Order Schedule Diagnoses Dermatology office Outpatient Referral Routine Dermatitis Ex pected: visit (clinic) Asteatotic Xerotic 022 (Approximate), Expires: 05/11/2023 documented as of this encounter Visit Diagnoses Diagnosis Dermatitis Asteatotic Xerotic - Primary Furunculosis Keratosis Seborrheic Inflamed documented in this encounter
--- OUTSIDE RECORDS SUMMARY | 2022-04-03 09:55 | XMS_ITS | Encounter Summary ---
:1955 Author Organization [facility] Address [address] [place] [address] Care Team Providers Name Role Phone Unavailable Primary Care Provider Unavailable Encounter Details Date Type Department Care Team Description 04/01/2008 Hospital Encounter [facility] INPT/OBSRV Kala Mast M.D. [address] [place], [place] [address] (Wo rk) Social History [...] How often do you attend faith or mormonism Patient refused 01/09/2022 services? Do [...] Office Visit Dermatology Marilu Majano M.D. 200 [place] [address] documented as of this encounter Visit Diagnoses Not on filedocumented in this encounter
--- OUTSIDE RECORDS SUMMARY | 2022-04-03 09:55 | XMS_ITS | Encounter Summary ---
:1955 Author Organization [facility] Address [address] [place] [address] Care Team Providers Name Role Phone Unavailable Primary Care Provider Unavailable Encounter Details Date Type Department Care Team Description 07/13/2008 Hospital Encounter [facility] INPT/OBSRV Kala Mast M.D. [address] [place], [place] [address] (Wo rk) Social History [...] How often do you attend anabaptist or nondenominational Patient refused 01/09/2022 services? Do [...] Office Visit Dermatology Marilu Majano M.D. 200 [place] [address] documented as of this encounter Visit Diagnoses Not on filedocumented in this encounter
--- OUTSIDE RECORDS SUMMARY | 2022-04-03 09:55 | XMS_ITS | Encounter Summary ---
:1955 Author Organization [facility] Address [address] [place] [address] Care Team Providers Name Role Phone Unavailable Primary Care Provider Unavailable Encounter Details Date Type Department Care Team Description 06/09/[address] [facility] INPT/OBSRV Kala Mast M.D. [address] [place], [place] [address] (Wo rk) Social History [...] How often do you attend voodoo or islam Patient refused 01/09/2022 services? Do you belong [...] Office Visit Dermatology Marilu Majano M.D. 200 [place] [address] documented as of this encounter Visit Diagnoses Not on filedocumented in this encounter
--- OUTSIDE RECORDS SUMMARY | 2022-04-03 09:55 | XMS_ITS | Encounter Summary ---
:1955 Author Organization [facility] Address [address] [place] [address] Care Team Providers Name Role Phone Unavailable Primary Care Provider Unavailable Encounter Details Date Type Department Care Team Description 05/20/2008 Hospital Encounter [facility] INPT/OBSRV Kala Mast M.D. [address] [place], [place] [address] (Wo rk) Social History [...] How often do you attend mosque or yazidism Patient refused 01/09/2022 services? Do [...] Office Visit Dermatology Marilu Majano M.D. 200 [place] [address] documented as of this encounter Visit Diagnoses Not on filedocumented in this encounter
--- OUTSIDE RECORDS SUMMARY | 2022-04-03 09:55 | XMS_ITS | Encounter Summary ---
:1955 Author Organization [facility] Address [address] [place] [address] Care Team Providers Name Role Phone Unavailable Primary Care Provider Unavailable Encounter Details Date Type Department Care Team Description 11/02/2008 Hospital Encounter [facility] INPT/OBSRV Kala Mast M.D. [address] [place] [address] (Wo rk) Social History [...] How often do you attend presybeterian or nondenominational Patient refused 01/09/2022 services? Do [...] Office Visit Dermatology Marilu Majano M.D. 200 [place] [address] documented as of this encounter Visit Diagnoses Not on filedocumented in this encounter
--- OUTSIDE RECORDS SUMMARY | 2022-04-03 09:55 | XMS_ITS | Encounter Summary ---
:1955 Author Organization [facility] Address [address] [place] [address] Care Team Providers Name Role Phone Unavailable [...] How often do you attend moravian or hoahaoism Patient refused 01/09/2022 services? Do [...] Visit Dermatology Marilu Majano M.D. [address] [place] [address] documented as of this encounter Visit Diagnoses Not on filedocumented in this encounter
--- OUTSIDE RECORDS SUMMARY | 2022-04-03 09:55 | XMS_ITS | Encounter Summary ---
:1955 Author Organization [facility] Address [address] [place] [address] Care Team Providers Name Role Phone Unavailable Primary Care Provider Unavailable Encounter Details Date Type Department Care Team Description 05/16/2008 Hospital Encounter [facility] INPT/OBSRV Kala Mast M.D. [address] [place], [place] [address] (Wo rk) Social History [...] How often do you attend anabaptist or sabianist Patient refused 01/09/2022 services? Do [...] Office Visit Dermatology Marilu Majano M.D. 200 [place] [address] documented as of this encounter Visit Diagnoses Not on filedocumented in this encounter
--- OUTSIDE RECORDS SUMMARY | 2022-04-03 09:55 | XMS_ITS | Encounter Summary ---
:1955 Author Organization [facility] Address [address] [place] [address] Care Team Providers Name Role Phone Unavailable Primary Care Provider Unavailable Encounter Details Date Type Department Care Team Description 06/02/2008 Hospital Encounter [facility] INPT/OBSRV Kala Mast M.D. [address] [place], [place] [address] (Wo rk) Social History [...] How often do you attend quaker or denominational Patient refused 01/09/2022 services? Do [...] Office Visit Dermatology Marilu Majano M.D. 200 [place] [address] documented as of this encounter Visit Diagnoses Not on filedocumented in this encounter
--- OUTSIDE RECORDS SUMMARY | 2022-04-03 09:55 | XMS_ITS | Encounter Summary ---
:1955 Author Organization [facility] Address [address] [place] [address] Care Team Providers Name Role Phone Unavailable [...] How often do you attend nondenominational or faith Patient refused 01/09/2022 services? Do [...] Visit Dermatology Marilu Majano M.D. [address] [place] [address] documented as of this encounter Visit Diagnoses Not on filedocumented in this encounter
--- OUTSIDE RECORDS SUMMARY | 2022-04-03 09:55 | XMS_ITS | Encounter Summary ---
:1955 Author Organization [facility] Address [address] [place] [address] Care Team Providers Name Role Phone Unavailable Primary Care Provider Unavailable Encounter Details Date Type Department Care Team Description 08/25/2008 Hospital Encounter [facility] INPT/OBSRV Kala Mast M.D. [address] [place] [address] (Wo rk) Social History [...] How often do you attend rastafari or presybeterian Patient refused 01/09/2022 services? Do [...] Office Visit Dermatology Marilu Majano M.D. 200 [place] [address] documented as of this encounter Visit Diagnoses Not on filedocumented in this encounter
--- OUTSIDE RECORDS SUMMARY | 2022-04-03 09:55 | XMS_ITS | Encounter Summary ---
:1955 Author Organization [facility] Address [address] [place] [address] Care Team Providers Name Role Phone Unavailable Primary Care Provider Unavailable Encounter Details Date Type Department Care Team Description 06/30/2008 Hospital Encounter [facility] INPT/OBSRV Kala Mast M.D. [address] [place], [place] [address] (Wo rk) Social History [...] How often do you attend congregation or anabaptist Patient refused 01/09/2022 services? Do [...] Office Visit Dermatology Marilu Majano M.D. [address] [place] [address] documented as of this encounter Visit Diagnoses Not on filedocumented in this encounter
--- OUTSIDE RECORDS SUMMARY | 2022-04-03 09:55 | XMS_ITS | Encounter Summary ---
:1955 Author Organization [facility] Address [address] [place] [address] Care Team Providers Name Role Phone Unavailable [...] How often do you attend voodoo or gnosticist Patient refused 01/09/2022 services? Do [...] Dermatology Link, Marilu Ellis M.D. [address] [place] [address] documented as of this encounter Visit Diagnoses Not on filedocumented in this encounter
--- OUTSIDE RECORDS SUMMARY | 2022-04-03 09:55 | XMS_ITS | Encounter Summary ---
:1955 Author Organization [facility] Address [address] [place] [address] Care Team Providers Name Role Phone Unavailable Primary Care Provider Unavailable Encounter Details Date Type Department Care Team Description 09/30/2008 Hospital Encounter HX NO MAPPING Alan Simeon Phar m.D., R.Ph. [address] [place], [place] [phone] (Wo rk) Social History [...] Office Visit Dermatology LinkMarilu M.D. [address] [place] [address] documented as of this encounter Visit Diagnoses Not on filedocumented in this encounter
--- OUTSIDE RECORDS SUMMARY | 2022-04-03 09:55 | XMS_ITS | Encounter Summary ---
:1955 Author Organization [facility] Address [address] [place] [address] Care Team Providers Name Role Phone Unavailable Primary Care Provider Unavailable Encounter Details Date Type Department Care Team Description 08/25/2008 Hospital Encounter HX [facility] INPT/OBSRV Kala Mast M.D. [address] [place], [place] [address] (Wo rk) Social History [...] How often do you attend yazidi or rastafarian Patient refused 01/09/2022 services? Do [...] Office Visit Dermatology Marilu Majano M.D. [address] [place] [address] documented as of this encounter Visit Diagnoses Not on filedocumented in this encounter
--- OUTSIDE RECORDS SUMMARY | 2022-04-03 09:55 | XMS_ITS | Encounter Summary ---
:1955 Author Organization [facility] Address [address] [place] [address] Care Team Providers Name Role Phone Unavailable Primary Care Provider Unavailable Encounter Details Date Type Department Care Team Description 04/29/2008 Hospital Encounter HX [facility] INPT/OBSRV Kala Mast M.D. [address] [place], [place] [address] (Wo rk) Social History [...] How often do you attend sikh or anabaptist Patient refused 01/09/2022 services? Do [...] Office Visit Dermatology Marilu Majano M.D. [address] [place] [address] documented as of this encounter Visit Diagnoses Not on filedocumented in this encounter
--- OUTSIDE RECORDS SUMMARY | 2022-04-03 09:55 | XMS_ITS | Encounter Summary ---
:1955 Author Organization [facility] Address [address] [place] [address] Care Team Providers Name Role Phone Unavailable Primary Care Provider Unavailable Encounter Details Date Type Department Care Team Description 05/16/2008 Hospital Encounter HX [facility] INPT/OBSRV Irene Mahoney M.D. [address] [place] [address] (Wo rk) Social History Tobacco Use Types [...] How often do you attend moravian or anabaptist Patient refused 01/09/2022 services? Do [...] Visit Dermatology Link, Marilu Ellis M.D. [address] [place] [address] documented as of this encounter Visit Diagnoses Not on filedocumented in this encounter
[2022-04-03 10:17] LABS: SARS Antigen* Negative (Negative)
== END 2022-04-03 09:45 | disposition home or self-care (01) ==
LOC: LKVREF 09:50
PROVIDERS: PCP Internal Medicine; Visit Provider Obstetrics & Gynecology
DX: Z01.818 Encounter for other preprocedural examination (principal); Z20.822 Contact with and (suspected) exposure to COVID-19
CPT/HCPCS: 87426

== ENCOUNTER 2022-04-04 06:04 | Day surgery (SDC) | payer MEDICARE, BC, SELFPAY ==
[2022-04-04 06:24] VITALS: BMI 37.0
[2022-04-04] MEDS: LACTATED RINGERS 1000 ML 1,000 ML 100 ML IV (06:30)
[2022-04-04 06:37] VITALS: BP 161/74; PULSE 68; RESP 16; TEMP 37; O2SAT 96
[2022-04-04] MEDS: SODIUM CHLORIDE 0.9 % (FLUSH) 10 ML SYRINGE IVF (06:54)
[2022-04-04] MEDS: LIDOCAINE 1% MDV 20 ML INJECTION (08:01)
[2022-04-04 08:25] VITALS: BP 134/67; PULSE 70; RESP 16; TEMP 36.5; O2SAT 93
[2022-04-04 08:30] VITALS: BP 138/75; PULSE 69; RESP 16; O2SAT 92
--- NOTE | 2022-04-04 08:39 | W.PM.GYNPROC ---
Procedure Note Date Seen: 04/04/22 Procedure Details: PREOPERATIVE DIAGNOSIS: Postmenopausal bleeding POSTOPERATIVE DIAGNOSIS: Postmenopausal bleeding PROCEDURE: Hysteroscopy, dilation and curettage SURGEON: Maribel Laguna MD ANESTHESIA: Monitored anesthesia care, paracervical block IV FLUIDS: 500 cc URINE OUTPUT: approximately 100 cc EBL: less than 5 cc SALINE DEFICIT: 65 CC FINDINGS: 1. Exam under anesthesia revealed stage II rectocele. Cervix was normal appearance. Bimanual exam under anesthesia revealed an anteverted uterus without any palpable adnexal masses. 2. Upon hysteroscopy, survey of the endometrial cavity revealed a uniform thin appearance throughout. Bilateral tubal ostia were normal in appearance. COMPLICATIONS: None PROCEDURE IN DETAIL: Patient was taken to the operating room with IV running. She was positioned in dorsal lithotomy position with her legs fully supported in Yellofin stirrups. Monitored anesthesia care was administered. She was prepped and draped in the usual sterile fashion. Exam under anesthesia was performed for the above-noted findings. Speculum was inserted. Cervix visualized and grasped along the anterior lip with a single-tooth tenaculum. Paracervical block was performed for total of 10 mL of 1% lidocaine. Cervix was serially dilated to accommodate the TRUCLEAR hysteroscope. This was assembled with saline inflow and outflow in place. The line was flushed of bubbles. The hysteroscope was advanced through the cervix into the endometrial cavity for the above noted findings. The tissue morcellator was then inserted through the operating channel. Window lock was performed. Under direct visualization, the endometrial cavity was circumferentially curetted with the tissue morcellator. The hysteroscope and morcellator were then removed from the uterus. Tenaculum was removed from the anterior lip of cervix. Hemostasis was noted. Patient tolerated procedure well. She was taken to recovery area in stable condition.
[2022-04-04 08:45] VITALS: BP 140/73; PULSE 62; RESP 16; O2SAT 93
--- NOTE | 2022-04-04 08:54 | W.ANESCHARGE ---
Anesthesia Charges Start Date/Time Anesthesia Start Date: 04/04/22 Anesthesia Start Time: 07:38 Stop Date/Time Anesthesia Stop Date: 04/04/22 Anesthesia Stop Time: 08:23 Summary Emergency: No
[2022-04-04 09:00] VITALS: BP 123/56; PULSE 69; RESP 16; O2SAT 93
--- NOTE | 2022-04-04 11:41 | W.ANESCHARGE ---
Anesthesia Charges Start Date/Time Anesthesia Start Date: 04/04/22 Anesthesia Start Time: 07:38 Stop Date/Time Anesthesia Stop Date: 04/04/22 Anesthesia Stop Time: 08:23 Summary Emergency: No
== END 2022-04-04 09:40 | disposition home or self-care (01) ==
PROVIDERS: PCP Internal Medicine; Visit Provider Obstetrics & Gynecology
PROC: 0UDB8ZZ Extraction of Endometrium, Via Natural or Artificial Opening Endoscopic (ICD-10-PCS; CPT 58558; principal; 2022-04-04 07:30)
DX: N95.0 Postmenopausal bleeding (principal); N81.6 Rectocele
CPT/HCPCS: 58558; 00940; 00952; 36415; 86850; 86900; 86901; 88305; J2250; J2405; J2704; J3010; J7120

== ENCOUNTER 2022-05-31 11:25 | Outpatient (CLI) | payer MEDICARE, BC, SELFPAY ==
--- OUTSIDE RECORDS SUMMARY | 2022-05-31 09:21 | XMS_ITS | Encounter Summary ---
:1955 Author Organization [facility] Address [address] [place] [id number] Care Team Providers Name Role Phone Unavailable Primary Care Provider Unavailable Reason for Visit Outpatient (Routine) - Closed Specialty Diagnoses / Referred By Referred To Cont act Procedures Contact Gastroenterology and [facility] Venkatesh [address] [place] [address] Referral ID Status Reason Start Date Expiration Date Visits Requ ested Visits Authorized [id number] Closed 02/13/2022 02/12/2025 1 1 Encounter Details Date Type Department Care Team Description 05/15/2022 Office Visit Division of [facility] G[facility] ramsey Alexander M.D. (HCC) (Primary Dx) [place], [place] [address] [facility] [address] [place] [phone] Social History Tobacco Use Types Packs/Day Years Used Date Smoking Tobacco: Former Alcohol Use Standard Drinks/Week Comments Yes 1 (1 standard drink = 0.6 oz pure alcoho l) 0-1 drinks a week Alcohol Habits Answer Date Recorded How often do you have a drink containing alcohol? Monthly or less 01/09/2022 How many drinks containing alcohol do you have on a 1 or 2 01/09/2022 typical day when you are drinking? How often do you have six or more drinks on one Never 01/09/2022 occasion? Social Isolation Answer Date Recorded In a typical week, how many times do you Three times a week 01/09/2022 talk on the phone with family, friends, or neighbors? How often do you get together with friends Three times a wee k 01/09/2022 or relatives? How often do you attend methodist or sikhism Patient refused 01/09/2022 services? Do you belong [...] documented as of this encounter Progress Notes Erica Nguyen M.D. 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 female with a history of Crohn's disease of the ileum and possibly duodenum diagnosed in 2005. Prior therapy includes mesalamine, budesonide, mercaptopurine, adalimumab, and currently infliximab since 2007, currently at a dose of 10 milligrams/kilogram every 4-5 weeks. Additional history includes psoriasis, asteatotic dermatitis, and obstructive sleep apnea onCPAP. I initially met with her back on February 13, 2022 for consultation regarding routine follow-up of her Crohn's disease given it had been probably 8 years since she was last seen, while on infliximab which is being prescribed to her locally. Clinically she was doing well from a GI perspective at that time in her main issues recently had been dermatologic and uro gynecologic. Please refer to my note from that day for full details on her history. At the time of our initial visit she personally felt as though her Crohn's disease was stable. She gets her infusions through [facility] with Dr. Hussein in GI, who she last saw in November 2021. There were concerns regarding a flare at that time though it was felt to most likely be acute gastroenteritis. Her last colonoscopy was in 2013 which demonstrated a few small ulcers in the terminal ileum as well as some mild luminal narrowing presumed secondary to prior inflammatory changes, with no active colitis. Endorsed bowel movements typically soft/formed occurring anywhere from once every 3 days up to twice daily. No abdominal pain. Her bigger issue was that more recently she had been having recurrent urinary tract infections for which she saw urology locally. There was also some concern noted for rectal prolapse combined with urinary incontinence/retention with overflow, as well as abnormal uterine bleeding. She had been advised locally to consider pelvic floor therapy. She had also been visiting with Dermatology regarding some what is felt to be asteatotic dermatitis, with which she has had improvementwith topical corticosteroids. One of the questions posed by Dermatology in October 2019 was whether thiscould be related to her infliximab and if she should transition to ustekinumab, though based on morerecent notes it was not clear that this was certainly felt to be related to infliximab and clinically she had improved. At the time of our initial visit in January we recommended proceeding with colonoscopy given it had been 8 years since her last examination. Also suggested CT enterography not only to assess for any active Crohn's disease but also given her frequent UTI to make sure she does not have any penetrating complications to contribute. Finally, we also recommended anorectal manometry given local concerns regarding pelvic floor dysfunction, evidence of rectal prolapse, and her urinary issues. I was unable to identify any obvious rectal prolapse on examination in the clinic. She did have evidence of paradoxical puborectalis contraction on multiple attempts with digital exam. CT enterography performed yesterday demonstrated asymmetric wall thickening and mucosal hyperenhancement over 30 cm of the distal ileum with relative sparing of the terminal ileum, consistent with active Crohn's disease. This looks to be mild. There was some mild luminal narrowing and some of the segments but no upstream dilatation. No evidence of any abscess or fistulizing disease. Overall the distribution and severity of the inflammatory changes appeared similar to February 2016. Even in 2015 thefindings were documented to be similar if not very mildly improved compared to 2013. Even then findings in 2013 were felt to be maybe slightly less severe than when compared to 2007. She had colonoscopy earlier today which demonstrated a normal terminal ileum and colon. She did have a 3 mm polyp resected from the sigmoid colon from which pathology is pending. Anorectal manometry was also performed earlier today though the report is pending. It sounds as though she underwent endometrial biopsy in February and subsequently hysteroscopy as well as D&C in March. Findings were benign. She did start topical estrogen therapy as well as oxybutynin which she feels have been helpful for her frequent UTI. Additionally, she is working with Dermatology regarding some of her skin changes in continues to utilize topical therapy. No real specific concerns or issues related to her gut. ASSESSMENT / PLAN #1 Ileal (and possibly history of duodenal) Crohn's disease, diagnosed in 2005, on infliximab 10 mg/kg every 4-5 weeks #2 Query underlying pelvic floor dysfunction #3 Asteatotic dermatitis #4 Recurrent UTIs #5 Abnormal uterine bleeding I met with Brittaney today to review results of testing and plans moving forward in regards to her Crohn's disease. While she does have some mild inflammatory changes of a approximately 30 cm of distal ileum, she is completely asymptomatic and looking back at her scans this appears to be relatively stable since probably 2007 - for as long as she has been on infliximab. She has had no progression and no disease complications. For this reason I think it is not unreasonable given she is doing well, to continue with her current dosing of infliximab, which was also her preference at this time. There has been some question as to whether infliximab may be contributing to her asteatotic dermatitis/psoriasis. However, recent symptoms have been managed topically and as such it has not been strongly felt that she needs to avoid ongoing TNF inhibitor use. Certainly if this becomes more problematicor if she should develop any progression of symptoms I think it would be reasonable to consider transition to something like risankizumab or ustekinumab. We spent some time reviewing both of these agents today as well as there efficacy in psoriasis. We discussed they do have a more favorable safety profile as compared to the TNF agents. Would want to make sure these were adequately covered and affordable for the patient given she is over 65 before proceeding with any transition. She had also brieflymentioned the question as to whether there may be any clinical trials coming up. Currently we are not recruiting though may have an upcoming trial for 1 of the other IL-23 inhibitors. She is hoping to t ransition her care here, which I am fine with. I asked her to let me know when she is due to have her infliximab reordered, at least 1-2 months and advanced, so we can ensure that everything is set up with her local infusion center. 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 She is not really struggling with any significant constipation or gastrointestinal issues. To assist in evaluating this we did perform an anorectal manometry which is pending. If this were significantly abnormal would be reasonable to have her visit with our colleagues in [facility] to outline any plans for possible therapy. I will forward the above note/recommendations to her local cake mixer, Dr. Hussein, at [facility] who has been managing her infusions and routine care. If she transitions her care I will want to see her back in 1 year. NMAN documented in this encounter Plan of Treatment Upcoming Encounters Date Type Specialty Care Team Description 07/11/2022 Clinical Communication Admitting/Central Scheduling 07/12/2022 Office Visit Dermatology Melecio, Marilu Ellis M.D. [address] [place] [address] documented as of this encounter Visit Diagnoses Diagnosis Ileitis Crohn's (HCC) - Primary documented in this encounter
--- OUTSIDE RECORDS SUMMARY | 2022-05-31 09:21 | XMS_ITS | Encounter Summary ---
:1955 Author Organization [facility] Address [address] [place] [id number] Care Team Providers Name Role Phone Unavailable Primary Care Provider Unavailable Reason for Referral Outpatient (Routine) - Closed Specialty Diagnoses / Procedures Referred By Contact Refer red To Contact Diagnoses Crohn's Disease (HCC) Infection Urinary Tract Recurrent Erica Nguyen M.D. [facility] Procedures Colonoscopy [address] [place] [address] Referral ID Status Reason Start Date Expiration Date Visits Requ ested Visits Authorized [id number] Closed 02/13/2022 02/13/2023 1 1 EYOR TECHNICIAN Reason for Visit Outpatient (Routine) - Closed Specialty Diagnoses / Procedures Referred By Contact Refer red To Contact Diagnoses Crohn's Disease (HCC) Infection Urinary Tract Recurrent Erica Nguyen M.D. [facility] Procedures Colonoscopy [address] [place] [address] Referral ID Status Reason Start Date Expiration Date Visits Requ ested Visits Authorized [id number] Closed 02/13/2022 02/13/2023 1 1 Encounter Details Date Type Department Care Team Description 05/15/2022 [facility] Crohn's Disease (HCC); Encounter Gastroenterology in [place] Infection Urinary Tract Recurrent [place], [place] [address] [facility] [address] [place] [id number] [phone] Social History Tobacco Use Types Packs/Day Years Used Date Smoking Tobacco: Former Tobacco Cessation: Counseling Given: Not Answered Alcohol Use Standard Drinks/Week Comments Yes 1 [...] often do you attend roman catholic or [employer] Patient refused 01/09/2022 services? Do [...] or slept in a jail (including now)? Education Answer Date Recorded What is the highest level of school Bachelor's degree (e.g., BA, AB, 01/09/2022 you have completed or the highest BS) degree you have received? Sex Assigned at Date Recorded Female 01/09/2022 4:35 PM CDT documented as of this encounter Last Filed Vital Signs Vital Sign Reading Time Taken Comments Blood Pressure 97/63 05/15/2022 11:44 AM CONVEYOR TECHNICIAN Pulse 67 05/15/2022 11:54 AM CONVEYOR TECHNICIAN Temperature 36.5 ??C (97.7 ??F) 05/15/2022 11:42 AM CONVEYOR TECHNICIAN Respiratory Rate 21 05/15/2022 11:54 AM CONVEYOR TECHNICIAN Oxygen Saturation 94% 05/15/2022 11:54 AM CONVEYOR TECHNICIAN Inhaled Oxygen Concentration - - Weight 99.8 kg (220 lb) 05/15/2022 9:59 AM CONVEYOR TECHNICIAN Height 165.7 cm (5' 5.24) 05/15/2022 9:59 AM CONVEYOR TECHNICIAN Body Mass Index 36.35 05/15/2022 9:59 AM CONVEYOR TECHNICIAN documented in this encounter Medications at Time [...] 2016 B12) 1,000 mcg tablet mouth daily. estradioL (ESTRACE) 0.1 as needed. 0 05/07/2022 mg/g (0.01%) vaginal cream fluticasone propionate Administer 1-2 sprays 0 (FLONASE) 50 mcg/actuation into nostril(s) as nasal spray needed. furosemide (LASIX) 20 mg Take 20 mg by mouth 0 tablet daily. hydrocortisone 2.5 % Apply 1 application 454 g 3 2021 ointmentIndications: topically 2 (two) Dermatitis Asteatotic times a day. Apply to Xerotic rash. inFLIXimab (REMICADE) 10 Infuse into a venous 0 1 mg/mL injection catheter. krill oil 500 mg capsule Take by mouth. 0 lisinopriL Take 20 mg by mouth 0 12/14/2021 (PRINIVIL,ZESTRIL) 20 mg daily. tablet melatonin 5 mg tablet Take 1 tablet by 0 01/22/20 13 mouth at bedtime as needed. omeprazole (PriLOSEC) 40 Take 40 mg by mouth [address] capsule daily. oxybutynin (DITROPAN-XL) daily. 0 05/13/2022 10 mg 24 hr tablet sertraline (ZOLOFT) 100 mg Take 1 tablet by 0 tablet mouth every morning. sertraline (ZOLOFT) 50 mg Take 1 tablet by 0 [...] wet wraps. documented as of this encounter H&P Notes Jesus Corral M.D., M.H.P.E. - 05/15/2022 10:30 AM CST ASSESSMENT / PLAN Patient Name: Brittaney Silvio Roland RN Colonoscopy Procedure Department : DIVISION OF GASTROENTEROLOGY IN [place], [place] SUBJECTIVE Past Medical History: Diagnosis Date Apnea Sleep Obstructive Crohn's Disease (HCC) Gastroesophageal Reflux Disease NOS Hypertension NOS Past Surgical History: Procedure Laterality Date KNEE ARTHROPLASTY Both Knees OTHER CONVERTED SHX (SEE COMMENT) N/A 09/03/2007 >Esophagogastroduodenoscopy with biopsy. OTHER CONVERTED SHX (SEE COMMENT) N/A 04/20/2012 >1. Left craniectomy. 2. Suboccipital microvascular decompression. TUBAL LIGATION Social History Socioeconomic History Marital status: Highest education level: Bachelor's degree (e.g., BA, AB, BS) Tobacco Use Smoking status: Former Vaping Use Vaping Use: never used Substance and Sexual Activity Alcohol use: Yes Alcohol/week: 1.0 standard drink Types: 1 Cans of beer per week Comment: 0-1 drinks a week Drug use: Never Sexual activity: Defer OBJECTIVE Weight: 99.8 kg Pain Score: 0 - No pain Consents Obtained: written The benefits, risks and alternatives of sedation or anesthesia, as well as the names, roles, and responsibilities of the healthcare team members, were discussed with the patient and/or decision maker: yes Procedure / Reason for visit: GI Endoscopic Procedure (verified with the patient and/or decision maker) The following portions of the patient's history were reviewed and updated as appropriate: allergies,current medications, family history, medical history, surgical history, social history and problem list. yes Review of systems: pertinent ROS negative Mallampati: I - soft palate, uvula, fauces, pillars visible Heart: normal Lung: normal General / Constitutional: normal ASA physical exam: Class 2 - patient with mild systemic disease Patient seen, evaluated and approved for sedation Sedation plan: moderate sedation Baseline Behavior: Psychosocial (WDL): Within Defined Limits Abdominal Exam: Gastrointestinal (WDL): Within Defined Limits Abdomen Inspection: Soft, Distended EYOR TECHNICIAN documented in this encounter Plan of Treatment Upcoming Encounters Date Type Specialty Care Team Description 07/11/2022 Clinical Communication Admitting/Central Scheduling 07/12/2022 Office Visit Dermatology Link, Marilu Ellis M.D. [address] [place] [address] documented as of this encounter Procedures Procedure Name Priority Date/Time Associated Diagnosis Comme nts SURGICAL PATHOLOGY Routine 05/15/2022 11:14 AM Re sults for this CONVEYOR TECHNICIAN procedure are i n the results section. COLONOSCOPY Routine 05/15/2022 10:57 AM Crohn's Disease Resul ts for this CONVEYOR TECHNICIAN (HCC) procedure are in Infection Urinary the result s Tract Recurrent section. COLONOSCOPY Routine 05/15/2022 10:57 AM Crohn's Disease CONVEYOR TECHNICIAN (HCC) Infection Urinary Tract Recurrent documented in this encounter Results Surgical Pathology (05/15/2022 11:14 AM CONVEYOR TECHNICIAN) Component Value Ref Test Analysis Performed At [facility] Range Method Time Signature 05/17/2022 DTL 5:02 PM CONVEYOR TECHNICIAN Report Arturo Monge M.D. 05/17/2022 DT L electronically 5:02 PM CONVEYOR TECHNICIAN signed by I verify that I have examined all relevant slides/materials for the specimen(s) and rendered or confirmed the diagnosis. Gross Description A: ?? Received in formalin labeled with the patie nt's name, 05/17/2022 DT medical record number, and colon-random sites are ten 5:02 PM CONVEYOR TECHNICIAN pale rush-pink irregular soft tissue fragments, ranging from 0.1-1.0 cm in greatest dimension. ??The specimens are submitted en toto in cassette A1. ??Grossed by BW B: ?? Received in formalin labeled with the patient's name, medical record number, and colon-sigmoid is a are four pale rush-pink irregular soft tissue fragments, is ranging from 0.4-0.6 cm in greatest dimension. ??The specimens are submitted en toto in cassette B1. ??Grossed by BW Interpretation FINAL DIAGNOSIS 05/17/2022 DTL A. ??Colon, random sites, endoscopic biopsy: ??Colonic mucos a 5:02 PM CONVEYOR TECHNICIAN without diagnostic abnormality. ??No dysplasia. B. ??Colon, sigmoid, endoscopic biopsy: ??Fragments of tubular adenoma, low grade dysplasia. Specimen (Source) Anatomical Collection Method Collection Time Re ceived Time Location / / Volume Laterality Biopsy (Colon) 05/15/2022 11:14 AM CONVEYOR TECHNICIAN Polyp (Colon) 05/15/2022 11:28 AM CONVEYOR TECHNICIAN Narrative This result has an attachment that is no t available. Jesus Corral M.D., M.H.P.E. LAB SURG PATH ORDERABL ES Performing Organization Address City/State/ZIP Code Phon e Number [facility] [address] [place], [place] [address] [place] [address] [facility] [address] Colonoscopy (05/15/2022 10:57 AM CONVEYOR TECHNICIAN) Specimen (Source) Anatomical Collection Method Collection Time Re ceived Time Location / / Volume Laterality 05/15/2022 10:57 AM CONVEYOR TECHNICIAN [facility]ressions [facility] 05/15/2022 11:40 AM CONVEYOR TECHNICIAN Post-op Diagnoses: ? - The examined portion of the ile um was normal. ? - One 3 mm polyp in the sigmoid c olon, removed with a cold snare. ? Resected and retrieved. ? - The entire examined colon is ot herwise normal. No evidence of active ? IBD. Biopsied. ? - Research biopsies obtained. Narrative [facility] - 05/15/2022 11:40 AM CONVEYOR TECHNICIAN [facility] GI Patient Name: Brittaney Roland Date of : 1955 Age: 66 Gender: Female Procedure Date: 05/15/2022 Procedure: ? Colonosc opy Providers: ? Jesus Corral MD Referring Provider: ?Erica Nguyen MD Pre-op Diagnoses: ?Disease act ivity assessment of Crohn's disease of ? the small bowel and colon. Personal history of ? mis croscopic colitis. Recommendation: ? - The patient will be observed po st-procedure, until all discharge ? criteria are met. ? - Await pathology results. ? - Return to referring physician a s previously scheduled. Findings: ? The terminal ileum appeared nathaniel l. ? A 3 mm polyp was found in the sig moid colon. The polyp was sessile. The ? polyp was removed with a cold sna re. Resection and retrieval were ? complete. ? The colon (entire examined portio n) appeared otherwise normal. Biopsies ? for histology were taken with a c old forceps from the entire colon for ? evaluation of microscopic colitis . ? There is no endoscopic evidence o f inflammation in the entire colon. ? Research biopsies were also obtai jennifer from the TI, descending colon and ? at 20cm. (IRB# [id number]) Procedural Details: ? The patient was seen, evaluated, history reviewed, airway and heart-lung ? exams were performed by licensed provider and were satisfactory for ? planned level of sedation care. ? The risks, benefits and alternati ves for the procedure and sedation were ? discussed and informed consent wa s obtained. A procedural pause was ? conducted in the presence of assi sting personnel to verify the correct ? patient identity and procedure to be performed. Throughout the ? procedure, the patient's blood pr essure, pulse, and oxygen saturations ? were monitored continuously. The Colonoscope was introduced under direct ? vision through the anus and advan holly to the terminal ileum, with ? identification of the appendiceal orifice and IC valve. The colonoscopy ? was performed without difficulty. The patient tolerated the procedure ? well. The quality of the bowel pr eparation was excellent. The quality of ? the bowel preparation was evaluat ed using the BBPS ([place] Bowel ? Preparation Scale) with scores of : Right Colon = 3, Transverse Colon = 3 ? and Left Colon = 3 (entire mucosa seen well with no residual staining, ? small fragments of stool or opaqu e liquid). The total BBPS score equals ? 9. Estimated Blood Loss: ?Estimated blo od loss: none. Complications: ? No immedia te complications. Sedation: ? Moderate (conscious) sedation was administered by the endoscopy nurse ? and supervised by the endoscopist . The following parameters were ? monitored: oxygen saturation, hea rt rate, blood pressure, and response ? to care. Total physician intraser vice time was 20 minutes. Attending Participation: I personally pe rformed the entire procedure. Jesus Corral MD 05/15/2022 11:39:43 AM This report has been signed electronical ly. Number of Addenda: 0 Erica Nguyen M.D. GI PROCEDURE ORDERABLES Performing Organization Address City/State/ZIP Code Phon e Number [facility] documented in this encounter Visit Diagnoses Diagnosis Crohn's Disease (HCC) Infection Urinary Tract Recurrent documented in this encounter Administered Medications Inactive Administered Medications - up to 3 most recent administrations Medication Order MAR Action Action Date Dose Rate Site fentaNYL injection (SUBLIMAZE) Given 05/15/2022 11:12 AM CONVEYOR TECHNICIAN 50 mcg intravenous, Code/trauma/sedation medication, Starting on Fri05/15/22 at 1112 fentaNYL injection (SUBLIMAZE) Given 05/15/2022 11:17 AM CONVEYOR TECHNICIAN 25 mcg intravenous, Code/trauma/sedation medication, Starting on Fri05/15/22 at 1117 lactated ringers New Bag 05/15/2022 11:12 AM CONVEYOR TECHNICIAN 20 mL/hr 20 mL/hr intravenous, Code/trauma/sedation continuous med, Starting on Fri05/15/22 at 1112 midazolam (PF) injection (VERSED) Given 05/15/2022 11:12 AM CONVEYOR TECHNICIAN 3 mg Code/trauma/sedation medication, Starting on Fri05/15/22 at 1112 midazolam (PF) injection (VERSED) Given 05/15/2022 11:17 AM CONVEYOR TECHNICIAN 1 mg Code/trauma/sedation medication, Starting on Fri05/15/22 at 1117 sodium chloride 0.9 % injection Given 05/15/2022 11:12 AM CONVEYOR TECHNICIAN 5 mL intravenous, Code/trauma/sedation medication, Starting on Fri05/15/22 at 1112 sodium chloride 0.9 % injection Given 05/15/2022 11:17 AM CONVEYOR TECHNICIAN 5 mL intravenous, Code/trauma/sedation medication, Starting on Fri05/15/22 at 1117 documented in this encounter
--- OUTSIDE RECORDS SUMMARY | 2022-05-31 09:21 | XMS_ITS | Encounter Summary ---
:[address] [facility] Address [address] [place] [address] Care Team Providers Name Role Phone Unavailable Primary Care Provider Unavailable Encounter Details Date Type Department Care Team Description 05/15/2022 Ancillary Procedure Department of Gastroenterology Social History Tobacco Use Types Packs/Day Years [...] How often do you attend protestant or zoroastrianism Patient refused 01/09/2022 services? Do you belong [...] or slept in a assisted (including now)? Education Answer Date Recorded What [...] Dermatology Link, Marilu Ellis M.D. [address] [place] [address] documented as of this encounter Procedures Procedure Name Priority Date/Time Associated Comments Diagnosis GASTROENTEROLOGY IMAGE Routine 05/15/2022 11:00 R esults for this EXAM AM [employer] procedure are i n the results section. documented in this encounter Results Colonoscopy-Gastroenterology Image Exam (05/15/2022 11:00 AM [employer]) Specimen (Source) Anatomical Collection Method Collection Time Re ceived Time Location / / Volume Laterality 05/15/2022 10:57 AM [employer] Narrative [facility] - 05/15/2022 11:43 AM [employer] This order has been created and auto-finalized [...]
--- OUTSIDE RECORDS SUMMARY | 2022-05-31 09:21 | XMS_ITS | Encounter Summary ---
:1955 Author Organization [facility] Address [address] [place] [address] Care Team Providers Name Role Phone Unavailable Primary Care Provider Unavailable Reason for Referral Outpatient (Routine) - Closed Specialty Diagnoses / Referred By Referred To Cont act Procedures Contact Gastroenterology and Erica Nguyen Rocheste r [facility] Hepatology Venkatesh [address] [place] [address] Referral ID Status Reason Start Date Expiration Date Visits Requ ested Visits Authorized [id number] Closed 02/13/2022 02/12/2025 1 1 Outpatient (Routine) - Closed Specialty Diagnoses / Procedures Referred By Contact Refer red To Contact Diagnoses Noninfective Gastroenteritis And Colitis Unspecified Crohn's Disease (HCC) Infection 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 [facility] Procedures Anorectal Manometry [address] [place] [address] Referral ID Status Reason Start Date Expiration Date Visits Requ ested Visits Authorized [id number] Closed 02/13/2022 02/13/2023 1 1 MRI/CAT/PET Scan (Routine) - Closed Specialty Diagnoses / Procedures Referred By Contact Refer red To Contact Radiology Diagnoses Noninfective Gastroenteritis And Colitis Unspecified Erica Nguyen M.D. [facility] Procedures CT Abdomen Pelvis Enterography with IV Contrast [address] [place] [address] Referral ID Status Reason Start Date Expiration Date Visits Requ ested Visits Authorized [id number] Closed 02/13/2022 02/13/2023 1 1 Outpatient (Routine) - Closed Specialty Diagnoses / Procedures Referred By Contact Refer red To Contact Diagnoses Crohn's Disease (HCC) Infection Urinary Tract Recurrent Erica Nguyen M.D. [facility] Procedures Colonoscopy [address] [place] [address] Referral ID Status Reason Start Date Expiration Date Visits Requ ested Visits Authorized [id number] Closed 02/13/2022 02/13/2023 1 1 Reason for Visit Appointment Request (Routine) - Closed Specialty Diagnoses / Referred By Contact Referred To Procedures Contact Gastroenterology and Diagnoses Crohn's Disease (HCC) Hepatology Referral ID Status Reason Start Date Expiration Date Visits Requ ested Visits Authorized [id number] Closed 11/02/2021 11/02/2022 1 1 Encounter Details Date Type Department Care Team Description 02/13/2022 Comprehensive Visit Division of Patrick Crohn's Disease (HCC) (Primary Dx); Gastroenterology in Erica Alexander Noninfec tive Gastroenteritis And Colitis Unspecified; [place], [place] Venkatesh Infection Urinary Tract Recurrent; [address] Prolapse Rectal; [facility] Pelvic Floor Tension; [address] [place], Abnormal Uterine And Vaginal Bleeding Unspecified [phone] Social History Tobacco Use Types Packs/Day Years [...] How often do you attend gnosticist or hinduism Patient refused 01/09/2022 services? Do [...] or slept in a fpc (including now)? 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 [...] getting her infusions through Dr. Paz at [facility]. From a Crohn's disease perspective she [...] Dermatology Link, Marilu Ellis M.D. 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 Erica Nguyen M.D. GI PROCEDURE ORDERABLES Performing Organization Address City/State/ZIP Code Phon e Number MMODAL CT Abdomen Pelvis Enterography with IV Contrast (05/14/2022 1:10 PM GRAPHIC COORDINATOR) Anatomical Region Laterality Modality Abdomen, Pelvis, Abdominal RST LOS, N/A Comp uted Tomography, Computed Abdominal ARZ LOS, Abdominal FLA LOS [place]ingo ography Specimen (Source) Anatomical Collection Method Collection Time Re ceived Time Location / / Volume Laterality 05/14/2022 1:06 PM GRAPHIC COORDINATOR Impressions 05/14/2022 2:06 PM GRAPHIC COORDINATOR Active inflammation involving approximately 30 cm of distal ileum, consistent with Crohn's ileitis. Overall distribution an d severity are similar to 02/29/2016. Negative for fistula to the bladder. Narrative 05/14/2022 2:06 PM GRAPHIC COORDINATOR EXAM: ??CT ABDOMEN PELVIS ENTEROGRAPHY WITH IV CONTRAST COMPARISON: ??02/29/2016 and 11/19/2012 FINDINGS: ??Asymmetric wall thickening a nd mucosal hyperenhancement of the distal ileum over a length of approximately 30 cm, with relative sp aring of the terminal ileum. The findings are consistent with active Crohn's ileitis, and overall are similar to 02/29/2016. Mild luminal narrowing in some of the diseased segments but no signific ant upstream dilatation. The more proximal small bowel is normal. Negative for duodenal Crohn's di sease. No evidence of abscess or fistula. In particular, negative for fistula to the bladder. No gas within the bladder. Negative for colonic inflammation. Hepatic steatosis. Negative for hepatic mass. Spleen size normal. Calcified splenic cyst. Pancreas, kidneys, adrenals negative. Tubal ligati on clips. Procedure Note Zachary Munoz M.B., Ch.B. - 05/14/2022 EXAM: CT ABDOMEN PELVIS ENTEROGRAPHY WIT H IV CONTRAST COMPARISON: 02/29/2016 and 11/19/2012 FINDINGS: Asymmetric wall thickening and mucosal hyperenhancement of the distal ileum over a length of approximately 30 cm, with relative sp aring of the terminal ileum. The findings are consistent with active Crohn's ileitis, and overall are similar to 02/29/2016. Mild luminal narrowing in some of the diseased segments but no signific ant upstream dilatation. The more proximal small bowel is normal. Negative for duodenal Crohn's di sease. No evidence of abscess or fistula. In particular, negative for fistula to the bladder. No gas within the bladder. Negative for colonic inflammation. Hepatic steatosis. Negative for hepatic mass. Spleen size normal. Calcified splenic cyst. Pancreas, kidneys, adrenals negative. Tubal ligati on clips. IMPRESSION: Active inflammation involving approximat monique 30 cm of distal ileum, consistent with Crohn's ileitis. Overall distribution an d severity are similar to 02/29/2016. Negative for fistula to the bladder. Erica Nguyen M.D. IMG CT PROCEDURES Vitamin B12 Assay (02/13/2022 11:34 AM CDT) athologist Signature Vitamin B12 [phone] 02/13/2022 DTL Assay, S ng/L 1:13 PM [...] Organization Address City/State/ZIP Code Phon e Number [facility] - [address] [place], [place] [address] [facility] [place] [address] [facility] [address] 25-Hydroxyvitamin D2 and [...] performa nce characteristics determined by [facility] in a manner consistent with CLIA [...] Organization Address City/State/ZIP Code Phon e Number [facility] [address] [place], [place] [address] SUPPORT CENTER [facility] [place] [address] Laboratory Medicine and Pathology [address] [...] Organization Address City/State/ZIP Code Phon e Number [facility] - [address] [place], [place] [address] [facility] [place] [address] [facility] [address] (ABNORMAL) CBC with Differential, Blood (02/13/2022 11:34 AM CDT) [facility] Method Time Signature Hemoglobin 12.4 11.6 - [...] Organization Address City/State/ZIP Code Phon e Number [facility] - [address] [place], [place] [address] [facility] [place] [address] [facility] [address] documented in this encounter Visit Diagnoses Diagnosis Crohn's Disease (HCC) - Primary Noninfective Gastroenteritis And Colitis Unspecified Infection Urinary 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
--- OUTSIDE RECORDS SUMMARY | 2022-05-31 09:21 | XMS_ITS | Encounter Summary ---
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 [facility] Procedures Anorectal Manometry [address] [place] [address] Referral ID Status Reason Start Date Expiration Date Visits Requ ested Visits Authorized [id number] Closed 02/13/2022 02/13/2023 1 1 Encounter Details Date Type Department Care Team Description 05/15/2022 Hospital Division of Patrick Noninfective Ga stroenteritis And Colitis Unspecified; Encounter Gastroenterology in Erica Alexander Crohn's Disease (HCC); [place], [place] Venkatesh Infection Urinary Tract Recurrent; [address] Prolapse Rectal; [place], [place] Pelvic Floor Tension [address] [phone] Social History Tobacco Use Types Packs/Day Years [...] How often do you attend hinduism or baptist Patient refused 01/09/2022 services? Do [...] or slept in a half-way (including now)? Education Answer Date Recorded What [...] Dermatology Link, Marilu Ellis M.D. 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 Erica Nguyen M.D. 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
--- OUTSIDE RECORDS SUMMARY | 2022-05-31 09:21 | XMS_ITS ---
:1955 Author Care Team Providers Name Role Phone ANN GALVAN MD Primary Care Provider [phone] Allergies Code Code System Name Reaction Severity Status Onset 2670 RxNorm Codeine ? ? Active ? 305828 RxNorm Humira Rash ? Active ? 5487 [...] UR ABNORMAL Final Report microbiology ? Final [place] [facility] [address] [facility] [address], [place] 10/30/2021 Urinalysis ? Color-Status Straw ? ? [...] ? , Dipstick observation recorded. Past Encounters Encounter Date Diagnosis Provider 10/30/2021 Urinary Tract Infectious Disease Clay Hernandez MD: [address], [place] [address], Ph. 10/24/2021 Mixed Urinary Incontinence Clay silva MD: [address] [place] [address], Ph. Social History Tobacco Smoking Status Former [...]
--- OUTSIDE RECORDS SUMMARY | 2022-05-31 09:21 | XMS_ITS | Encounter Summary ---
:1955 Author Organization [facility] Address [address] [place] [address] Care Team Providers Name Role Phone Unavailable Primary Care Provider Unavailable Reason for Referral Outpatient (Routine) - Authorized Specialty Diagnoses / Procedures Referred By Contact Refer red To Contact Obstetrics and Diagnoses Abnormal Uterine And Vaginal Bleeding Unspecified Erica Nguyen [facility] Gynecology M.DElvis [address] [place] [address] Referral ID Status Reason Start Date Expiration Date Visits V isits Requested Authorized [id number] Authorized 04/05/2022 04/05/2023 1 1 Outpatient (Routine) - Authorized Specialty Diagnoses / Procedures Referred By Contact Refer red To Contact Obstetrics and Diagnoses Incontinence Urinary Prolapse Pelvic Floor Global Erica Nguyen [facility] Gynecology M.DElvis [address] [place] [address] Referral ID Status Reason Start Date Expiration Date Visits V isits Requested Authorized [id number] Authorized 04/05/2022 04/05/2023 1 1 Encounter Details Date Type Department Care Team Description 04/04/2022 Clinical Communication Division of Erica Nguyen Gastroenterology ramsey Alexander M.D. [place], [place] [address] [facility] [address] [place], [place] [phone] Social History Tobacco Use Types Packs/Day Years [...] How often do you attend evangelical or samaritan Patient refused 01/09/2022 services? Do [...] Communication Admitting/Central Scheduling 07/12/2022 Office Visit Dermatology Marilu Majnao M.D. 200 [place] [address] Scheduled Referrals Name Type Priority Associated Diagnoses Order S chedule Obstetrics and Outpatient Routine Incontinence Uri nary Expected: Gynecology - Referral Prolapse Pelvic 04/05/2022 Urogynecology consult Floor Global (Appro ximate), (clinic) Expires: 07/06/2023 Obstetrics and Outpatient Routine Abnormal Uterine And Expec bassam: Gynecology - Referral Vaginal Bleeding 04/05/2022 Gynecology consult Unspecified (Approxim ate), (clinic) Expires: 07/06/2023 documented as of this encounter Visit Diagnoses Diagnosis Abnormal Uterine And Vaginal Bleeding Un specified - Primary Incontinence Urinary Prolapse Pelvic Floor Global documented in this encounter
--- OUTSIDE RECORDS SUMMARY | 2022-05-31 09:21 | XMS_ITS | Encounter Summary ---
:1955 Author Organization [facility] Address [address] [place] [address] Care Team Providers Name Role Phone Unavailable Primary Care Provider Unavailable Reason for Referral Physical Therapy (Routine) - Authorized Specialty Diagnoses / Procedures Referred By Contact Refer red To Contact Diagnoses Dysfunction Pelvic Floor Erica Nguyen M.D. [facility] Procedures PMR Pelvic floor & bowel/bladder rehab [address] [place] [phone] Referral ID Status Reason Start Date Expiration Date Visits V isits Requested Authorized [id number] Authorized 05/21/2022 05/21/2023 99 99 EW COORDINATOR Encounter Details Date Type Department Care Team Description 05/21/2022 Orders Only Division of Erica Nguyen Dysfunction Pelvic Gastroenterology ramsey Alexander M.D. Floor (Primary Dx) [place], [place] [address] [place] [address] [place] [phone] Social History Tobacco Use Types Packs/Day Years [...] or relatives? How often do you attend tenriism or pentecostal Patient refused 01/09/2022 services? Do you belong to any clubs or organizations Yes 01/09/2022 such as tenriism groups, unions, fraternal or athletic groups, or [...] Admitting/Central Scheduling 07/12/2022 Office Visit Dermatology Marilu Majano M.D. 200 [place] [address] documented as of this encounter Visit Diagnoses Diagnosis Dysfunction Pelvic Floor - Primary documented in this encounter
--- OUTSIDE RECORDS SUMMARY | 2022-05-31 09:21 | XMS_ITS | Encounter Summary ---
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 [facility] Procedures Enema Prep [address] [place] [phone] Referral ID Status Reason Start Date Expiration Date Visits Requ ested Visits Authorized [id number] Closed 02/13/2022 02/13/2023 1 1 Encounter Details Date Type Department Care Team Description 05/15/2022 Clinical Support Enema Prep Erica Nguyen M.D. [address] [place] [phone] Noninfective Gastroenteritis And Colitis Unspecified; [facility] [address] [place] [phone] Crohn's Disease (HCC); [facility] Infection Urina ry Tract Recurrent; [place] Prolapse Rectal; [address] [facility] [place] [phone] Social History Tobacco Use Types Packs/Day Years [...] Office Visit Dermatology Marilu Majano M.D. 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
--- OUTSIDE RECORDS SUMMARY | 2022-05-31 09:21 | XMS_ITS | Encounter Summary ---
:1955 Author Organization [facility] Address [address] [place] [address] Care Team Providers Name Role Phone Unavailable Primary Care Provider Unavailable Encounter Details Date Type Department Care Team Description 02/13/2022 Hospital Encounter Department of Patrick, Noninfec tive Gastroenteritis And Colitis Unspecified; Laboratory Medicine Ana Craig Crohn's Disease (HCC); and Pathology, [address] [place] [address] Infection Urinary Tract Recurrent; [facility], in [place], [place] Prolaps e Rectal; [facility] [address] Pelvic Floor Tension; [place] [phone] Abnormal Uterine And Vaginal Bleeding Unspecified [address] [facility] (Work) [place], [place] [phone] (Fax) [phone] Social History Tobacco Use Types Packs/Day Years [...] How often do you attend pentecostalism or yarsanism Patient refused 01/09/2022 services? Do [...] 2016 B12) 1,000 mcg tablet mouth daily. furosemide (LASIX) 20 mg Take 20 mg by mouth 0 tablet daily. hydrocortisone 2.5 % Apply 1 application 454 g 3 2021 ointmentIndications: topically 2 (two) Dermatitis Asteatotic times a day. Apply Xerotic to rash. inFLIXimab (REMICADE) 10 Infuse into a venous 0 1 mg/mL injection catheter. lisinopriL Take 20 mg by mouth 0 12/14/2021 (PRINIVIL,ZESTRIL) 20 mg daily. tablet melatonin 5 mg tablet Take 1 tablet by 0 01/22/20 13 mouth at bedtime as needed. omeprazole (PriLOSEC) 40 Take 40 mg by mouth [address] capsule daily. sertraline (ZOLOFT) 100 Take 1 tablet by 0 2011 mg tablet mouth every morning. sertraline (ZOLOFT) 50 mg Take 1 tablet by 0 03/24 tablet mouth every morning. simvastatin (ZOCOR) 40 mg Take 40 mg by mouth 0 0 12/14/2021 tablet daily. tacrolimus (PROTOPIC) 0.1 Apply 1 application 100 g 5 0 02/08/2022 % ointmentIndications: topically 2 (two) Dermatitis Asteatotic times a day. Apply Xerotic to rash. triamcinolone (KENALOG) Apply 1 application 454 g 3 0.1 % creamIndications: topically 2 (two) Dermatitis Asteatotic times a day as Xerotic needed (Rash). Apply to affected areas twice a day under wet wraps. docosahexaenoic acid-epa Take 1 g by mouth. 0 05/15/2022 120-180 mg capsule omega-3 acid ethyl esters Take 2 g by mouth. 0 05/15/2022 (LOVAZA) 1 gram capsule polyethylene Drink 1st portion of 4000 mL 0 02/13/2022 glycol-electrolytes prep at 6 PM the (GoLYTELY) 236-22.74-6.74 evening before. 2nd -5.86 gram solution portion must be started 3 hours before and finished 2 hours prior to report time ruxolitinib 1.5 % Apply 1 application 60 g 5 2 05/15/2022 creamIndications: topically 2 (two) Dermatitis Asteatotic times a day. Apply Xerotic to rash. documented as of this encounter Plan of Treatment Upcoming Encounters Date Type Specialty Care Team Description 07/11/2022 Clinical Communication Admitting/Central Scheduling 07/12/2022 Office Visit Dermatology Link, Marilu Ellis M.D. [address] [place] [phone] documented as of this encounter Procedures Procedure [...] AM CDT) P athologist Signature Vitamin B12 [phone] 02/13/2022 DTL Assay, S ng/L 1:13 PM [...] Address City/State/ZIP Code Phon e Number [facility] - [address] [place], [place] [address] [facility] [place] [address] Laboratories-[facility] [address] 25-Hydroxyvitamin D2 [...] performa nce characteristics determined by [facility] in a manner consistent with CLIA [...] Address City/State/ZIP Code Phon e Number [facility] [address] [place], [place] [address] SUPPORT CENTER [facility] [place] [address] Laboratory Medicine and Pathology [address] [...] Address City/State/ZIP Code Phon e Number [facility] - [address] [place], [place] [address] [facility] [place] [address] [facility] [address] (ABNORMAL) CBC with Differential, Blood (02/13/2022 11:34 AM CDT) [facility] gist Method Time Signature Hemoglobin 12.4 [...] Address City/State/ZIP Code Phon e Number [facility] - [address] [place], [place] [address] [facility] [place] [address] Laboratories[facility] [address] documented in this encounter Visit Diagnoses Diagnosis Noninfective Gastroenteritis And Colitis Unspecified Crohn's Disease (HCC) Infection 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
--- OUTSIDE RECORDS SUMMARY | 2022-05-31 09:21 | XMS_ITS | Encounter Summary ---
:1955 Demographics Address [address] [place] [address] Mobile Phone Home Phone Email Address .[employer] Preferred Language ENG Marital Status Samaritan Affiliation Unknown Race White Ethnic Group Not or Author Organization [facility] Address [address] [place] [id number] Care Team Providers Name Role Phone Unavailable Primary Care Provider Unavailable Reason for Visit Outpatient (Routine) - Closed Specialty Diagnoses / Referred By Referred To Cont act Procedures Contact Gastroenterology and Erica Nugyen [facility] [facility] Venkatesh [address] [place] [address] Referral ID Status Reason Start Date Expiration Date Visits Requ ested Visits Authorized [id number] Closed 02/13/2022 02/12/2025 1 1 Encounter Details Date Type Department Care Team Description 05/15/2022 Virtual Visit Division of Erica Nguyen (P atient: Gastroenterology in Venkatesh Alexander Request) [place], [place] [address] [facility] [address] [place] [phone] Social History Tobacco Use Types Packs/Day Years [...] How often do you attend christian or episcopal Patient refused 01/09/2022 services? Do [...] Visit Dermatology Marilu Majano M.D. [address] [place] [address] documented as of this encounter Visit Diagnoses Not on filedocumented in this encounter
--- OUTSIDE RECORDS SUMMARY | 2022-05-31 09:21 | XMS_ITS | Encounter Summary ---
:1955 Author Organization [facility] Address [address] [place] [address] Care Team Providers Name Role Phone Unavailable Primary Care Provider Unavailable Reason for Referral MRI/CAT/PET Scan (Routine) - Closed Specialty Diagnoses / Procedures Referred By Contact Refer red To Contact Radiology Diagnoses Noninfective Gastroenteritis And Colitis Unspecified Erica Nguyen M.D. 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 [place] Procedures CT Abdomen Pelvis Enterography with IV Contrast [address] [place] [phone] Referral ID Status Reason Start Date Expiration Date Visits Requ ested Visits Authorized [id number] Closed 02/13/2022 02/13/2023 1 1 Encounter Details Date Type Department Care Team Description 05/14/2022 Hospital Encounter Department of Bartolo Nguyen Radiology, [place] Erica Alexander M.D. Gastroenteritis And Building, in [address] [facility] Colitis Unspecified [facility] [phone] [place], [place] (Work) [phone] Social History Tobacco Use Types Packs/Day Years [...] How often do you attend rastafari or scientologist Patient refused 01/09/2022 services? Do you belong [...] needed. 0 05/07/2022 mg/g (0.01%) vaginal cream furosemide (LASIX) 20 mg Take 20 mg [...] mg 24 hr tablet sertraline (ZOLOFT) 100 Take 1 tablet by [...] to rash. documented as of this encounter Nursing Notes Kennedi Norton R.N. - 05/14/2022 1:00 PM CST Enterography Screening Does patient have a confirmed or suspected gastrointestinal perforation or peritonitis? NO If no???continue Does patient have an allergy to citrus fruit? NO If no???continue Does patient have an allergy to any of the ingredients in [place]reeza: Filtered water, Sorbitol, Mannitol, Citric Acid, Sodium Hexametaphosphate (preservative), Xanthan Gum, Sodium Citrate, Sodium Benzoate, Potassium Sorbate (preservative), Sucralose, Malic Acid, Acesulfame Potassium, or Calcium Disodium EDTA? NO If no???continue Does patient have an allergy to Benzocaine if patient requires a nasogastric tube inserted? NO If no???continue Does patient have current issues with aspiration? NO If no???continue For CT: Has patient had barium in last 72 hours? NO If no???continue Does patient have an ileostomy or total colectomy? NO If yes...use appropriate section of medicationreference document. NOTE: Notify technologist as scan timing may need to be altered. Ask patient to notify nursing when oral contrast starts coming through the ostomy as scan timing may need to be altered. Is patient scheduled for a MREN/perianal fistula study? NO if yes...use appropriate section of medication reference document. NOTE: Notify technologist as scan timing may need to be altered. Ask patient to notify nursing when oral contrast starts coming through the ostomy as scan timing may need to be altered. Does patient currently have an NG tube or requests one to be inserted for contrast administration? NO If yes...use appropriate section of medication reference document. If yes??? If one needs to be placed, submit an order for the NG tube (per protocol) and insert. For CT: Is the patient scheduled for a Puetz-Jeghers Enterography? NO If yes... continue Does patient have an allergy to Barium sulfate? NO If yes, notify Radiologist. For MR: Initiate Glucagon screening as well. *Administer medications as ordered and as specified in medication reference document. 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 [address] [place] [address] Scheduled Orders Name Type Priority Associated Diagnoses Order S chedule Creatinine, POCT Point of Care Routine Routine la b collection Testing-Docked (next collect ion) for Device 1 Occurrences s tarting 05/14/2022 unti l 05/14/2022 documented as of this encounter Procedures Procedure Name Priority Date/Time Associated Diagnosis Comme nts CT ABDOMEN PELVIS RAD - Routine 05/14/2022 1:10 Noninfective Result s for ENTEROGRAPHY WITH (most inpatients PM GARBAGE COLLECTOR DRIVER Gastroenteritis And this procedure IV CONTRAST and all Colitis Unspecified are in t he outpatients) results section. CREATININE, POCT, Routine 05/14/2022 Results fo r B 11:45 AM GARBAGE COLLECTOR DRIVER this procedure are in the results section. CREATININE, POCT, Routine 05/14/2022 Results fo r B 11:45 AM GARBAGE COLLECTOR DRIVER this procedure are in the results section. documented in this encounter Results CT Abdomen Pelvis Enterography with IV Contrast (05/14/2022 1:10 PM GARBAGE COLLECTOR DRIVER) Anatomical Region Laterality Modality Abdomen, Pelvis, Abdominal RST LOS, N/A Comp uted Tomography, Computed Abdominal ARZ LOS, Abdominal FLA LOS Mingo ography Specimen (Source) Anatomical Collection Method Collection Time Re ceived Time Location / / Volume Laterality 05/14/2022 1:06 PM GARBAGE COLLECTOR DRIVER Impressions 05/14/2022 2:06 PM GARBAGE COLLECTOR DRIVER Active inflammation involving approximately 30 cm of distal ileum, consistent with Crohn's ileitis. Overall distribution an d severity are similar to 02/29/2016. Negative for fistula to the bladder. Narrative 05/14/2022 2:06 PM GARBAGE COLLECTOR DRIVER EXAM: ??CT ABDOMEN PELVIS ENTEROGRAPHY WITH IV [...] bladder. Erica Nguyen M.D. IMG CT PROCEDURES Creatinine, POCT (05/14/2022 11:45 AM GARBAGE COLLECTOR DRIVER) athologist Signature Creatinine, 1.0 0.6 - 1.0 05/14/2022 PCDT POCT, B mg/dL 11:46 AM GARBAGE COLLECTOR DRIVER Comment: ----ADDITIONAL INFORMATION---- Performed at the Point of Care Specimen Anatomical Collection Method Collection Time Receive d Time (Source) Location / / Volume Laterality Blood 05/14/2022 11:45 05/14/2022 AM GARBAGE COLLECTOR DRIVER 11:47 AM GARBAGE COLLECTOR DRIVER Unknown Provider LAB POCT ORDERABLES - DEVICE Performing Organization Address City/[facility]/ZIP [facility] Phon e Number POC EUGENE PERFORMING [address] [place] [address] LAB[address] POC [address] Creatinine, POCT (05/14/2022 11:45 AM GARBAGE COLLECTOR DRIVER) athologist Signature Estimated GFR 62 >=60 05/14/2022 PCDT (eGFR), POCT mL/min/BSA 11:47 AM GARBAGE COLLECTOR DRIVER Comment: Estimated GFR calculated using the 2020 CKD_EPI creatinine equation. Specimen Anatomical Collection Method Collection Time Receive d Time (Source) Location / / Volume Laterality Blood 05/14/2022 11:45 05/14/2022 AM GARBAGE COLLECTOR DRIVER 11:47 AM GARBAGE COLLECTOR DRIVER Unknown Provider LAB POCT ORDERABLES - DEVICE Performing Organization Address City/[facility] Phon e Number POC EUGENE PERFORMING [address] [place] [address] LABS [place]CDT [place], [place] [phone] [place] [address] documented in this encounter Visit Diagnoses Diagnosis Noninfective Gastroenteritis And Colitis Unspecified documented in this encounter Administered Medications Inactive Administered Medications - up to 3 most recent administrations Medication Order MAR Action Action Date Dose Rate Site iohexoL 350 mg iodine/mL solution Given 05/14/2022 1:10 PM GARBAGE COLLECTOR DRIVER 5 0 mL 1-200 mL (OMNIPAQUE) 1-200 mL, intravenous, Once in imaging, contrast, Starting on Fri05/14/22 at 1144, For 1 dose, Imaging Protocol Orders, Dose per Radiant Medication Guidelines sodium chloride (PF) 0.9 % injection 1-1 00 mL Given 05/14/2022 1:11 PM GARBAGE COLLECTOR DRIVER 50 mL 1-100 mL, intravenous, Once, On 05/14/22 at 1145, For 1 dose, Imaging Protocol Orders documented in this encounter
--- OUTSIDE RECORDS SUMMARY | 2022-05-31 09:21 | XMS_ITS | Clinical Summary ---
:1955 Author Organization [facility] Address [address] [place] [address] Care Team Providers Name Role Phone Unavailable Primary Care Provider Unavailable Source Comments Patient records contain information from all sites at [facility]. For routine questions regarding patient records, call [phone] during business hours, M-F 8:00 AM - 5:00 PM Central Time. Record requests for emergency care only can be directed to [phone] at any time.[facility] Allergies Active Allergy Reactions Severity Noted Date Comments Adalimumab Rash High 02/29/2016 Codeine Other (see comments), Low 04/29/2008 Nausea Nausea Only Hydrochlorothiazide Rash High 04/29/2008 Rash Ibuprofen Other (see comments) 08/25/2016 Patient told not to take Medications Medication Sig Dispensed Refills Start End Date Status Date tacrolimus Apply 1 100 g 5 Active (PROTOPIC) 0.1 % application 2 ointmentIndications topically 2 : Dermatitis (two) times a Asteatotic Xerotic day. Apply to rash. hydrocortisone 2.5 Apply 1 454 g 3 A ctive % application 2 ointmentIndications topically 2 : Dermatitis (two) times a Asteatotic Xerotic day. Apply to rash. triamcinolone Apply 1 454 g 3 Active (KENALOG) 0.1 % application 2 creamIndications: topically 2 Dermatitis (two) times a Asteatotic Xerotic day as needed (Rash). Apply to affected areas twice a day under wet wraps. clindamycin Apply 1 60 mL 3 Active (Cleocin T) 1 % application 2 lotionIndications: topically Furunculosis daily. Apply to boil. simvastatin (ZOCOR) Take 40 mg by 0 Active 40 mg tablet mouth daily. 2 sertraline (ZOLOFT) Take 1 tablet 0 Active 100 mg tablet by mouth every 2 morning. sertraline (ZOLOFT) Take 1 tablet 0 Active 50 mg tablet by mouth every 2 morning. omeprazole Take 40 mg by 0 Activ e (PriLOSEC) [address] mouth daily. 2 capsule melatonin 5 mg Take 1 tablet 0 A ctive tablet by mouth at 3 bedtime as needed. lisinopriL Take 20 mg by 0 Activ e (PRINIVIL,ZESTRIL) mouth daily. 2 20 mg tablet inFLIXimab Infuse into a 0 Activ e (REMICADE) 10 mg/mL venous 2 injection catheter. furosemide (LASIX) Take 20 mg by 0 Active 20 mg tablet mouth daily. 2 cyanocobalamin Take 1 tablet 0 A ctive (VITAMIN B12) 1,000 by mouth daily. 7 mcg tablet cholecalciferol daily. 0 Acti ve (VITAMIN D3) 125 mcg (5,000 Unit) capsule aspirin [address] Take 81 mg by 0 Active tablet mouth. 7 acetaminophen Take 500 mg by 0 A ctive (TYLENOL) 500 mg mouth as 7 tablet needed. krill oil 500 mg Take by mouth. 0 Active capsule estradioL (ESTRACE) as needed. 0 Active 0.1 mg/g (0.01%) 2 vaginal cream fluticasone Administer 1-2 0 Act reta propionate sprays into (FLONASE) 50 nostril(s) as mcg/actuation nasal needed. spray oxybutynin daily. 0 Active (DITROPAN-XL) 10 mg 2 24 hr tablet ruxolitinib 1.5 % Apply 1 60 g 5 05/15/20 Di scontinued creamIndications: application 2 22 (Cost of Dermatitis topically 2 medicat ion) Asteatotic Xerotic (two) times a day. Apply to rash. docosahexaenoic Take 1 g by 0 05/15/20 Di scontinued acid-epa 120-180 mg mouth. 22 (Duplicate capsule order) omega-3 acid ethyl Take 2 g by 0 05/15/20 Discontinued esters (LOVAZA) 1 mouth. 7 22 (D uplicate gram capsule order) polyethylene Drink 1st 4000 mL 0 05/15/20 Discont inued glycol-electrolytes portion of prep 2 22 (Therapy (GoLYTELY) at 6 PM the [facility] ed) 236-22.74-6.74 evening before. -5.86 gram solution 2nd portion must be started 3 hours before and finished 2 hours prior to report time Active Problems Problem Noted Date Crohn's Disease 02/29/2016 Encounters Date Type Specialty Care Team Description 05/21/2022 Orders Only [place] Dysfunc tion Pelvic Hepatology Erica Alexander M.D. Floor (Primar y Dx) 05/15/2022 Virtual Visit Phyllis Mariano ed (Patient: Ramiro Alexander M.D. Request) 05/15/2022 Office Visit [place], Ileitis Crohn's Karmenology Erica Alexander M.D. (HCC) (Primar y Dx) 05/15/2022 Ancillary Procedure 05/15/2022 Hospital Encounter Ernie Mariano rohn's Disease (HCC); Hepatology Erica Alexander M.D. Infection Uri nary Tract Recurrent 05/15/2022 Hospital Encounter [place], N oninfective Gastroenteritis And Colitis Unspecified; Hepatology Erica Alexander M.D. Crohn's Disea se (HCC); Infection Urina ry Tract Recurrent; Prolapse Rectal ; Pelvic Floor Te nsion 05/15/2022 Clinical Support [place], Non infective Gastroenteritis And Colitis Unspecified; Hepatology Erica Alexander M.D. Crohn's Disease (HCC); [place], Infection Urina ry Tract Recurrent; Vanesa L, Prolapse Rectal ; R.N. Pelvic Floor Te nsion 05/14/2022 Hospital Encounter Radiology Patrick Noninfect reta Alexander M.D. Gastroenterit is And Colitis Unspeci fied 04/04/2022 Clinical GastroenterRosie, Communication Hepatology Erica M, M.D. from Last 3 Months Immunizations Name [...] How often do you attend voodoo or baptism Patient refused 01/09/2022 services? Do [...] Comments Blood Pressure 97/63 05/15/2022 11:44 AM CLOTH EXAMINER Pulse 67 05/15/2022 11:54 AM CLOTH EXAMINER Temperature 36.5 ??C (97.7 ??F) 05/15/2022 11:42 AM CLOTH EXAMINER Respiratory Rate 21 05/15/2022 11:54 AM CLOTH EXAMINER Oxygen Saturation 94% 05/15/2022 11:54 AM CLOTH EXAMINER Inhaled Oxygen Concentration - - Weight 99.8 kg (220 lb) 05/15/2022 9:59 AM CLOTH EXAMINER Height 165.7 cm (5' 5.24) 05/15/2022 9:59 AM CLOTH EXAMINER Body Mass Index 36.35 05/15/2022 9:59 AM CLOTH EXAMINER Plan of Treatment Upcoming Encounters Date Type Specialty Care Team Description 07/11/2022 Clinical Communication Admitting/Central Scheduling 07/12/2022 Office Visit Dermatology Link, Marilu Ellis M.D. [address] [place] [address] Health Maintenance Due Date Last Done Comments Bone Density Scan 1955 (Osteoporosis Screen) CT Colonography 1955 Cologuard 1955 Hepatitis C Screening 1955 Zoster Vaccines (1 of 2) 04/20/2015 02/23/2015 Mammogram 03/23/2016 03/23/2015 (Performed elsewhere), 03/04/2014, 01/14/2013, Additional history exists Depression Screening 06/23/2021 (Annual PHQ-2) DTaP,Tdap,and Td Vaccines 01/21/2022 01/22/2012, 12/17/2011 , (3 - Td or Tdap) 12/06/2004 Potassium Level 02/13/2023 02/13/2022, 08/27/2019, 09/03/2018, Additional history exists Sodium Level 02/13/2023 02/13/2022, 08/27/2019, 09/03/2018, Additional history exists Creatinine Level 05/14/2023 05/14/2022, 02/13/2022, 08/27/2019, Additional history exists Fasting Glucose for 02/13/2025 02/13/2022, 08/27/2019, Diabetes Screening 09/03/2018 Colonoscopy 05/15/2027 05/15/2022, 05/15/2022, 11/19/2013, Additional history exists Colorectal Cancer 05/15/2027 Surveillance Cervical Cancer Screening Discontinued 10/23/2015 (Performed elsewhere), 12/20/2013 (Performed elsewhere), 10/05/2010 (Performed elsewhere) Pneumococcal vaccine (65+ Completed 12/21/2020, 04/04/2020 years) COVID-19 Vaccine Completed 04/17/2022, 07/23/2021, 07/23/2021, Additional history exists Influenza Vaccine Completed 04/17/2022, 04/11/2021, 04/11/2021, Additional history exists Fall Risk Screen (Annual) Completed 05/15/2022 HPV Vaccines Aged Out No longer eligib le based on patient 's age to complete this topic Medical Devices Implanted Type Area Machine Group Leader Device Shelf Model / Identifier Expiration Date Ser ial / Lot Nevaeh-Mesh 90x90x.6mm(Gold) - Muñiz [id number] Str yker Implanted: Qty: 1 on 04/20/2012 pins/screws/r ods Description: Device Machine Group Leader - [employer] Florina.. Device Status Text - [id number]. Knee Implant-11/22/2015 Knee Implant Right: Knee Implanted: 11/22/2015 (Quantity not on file) [place] Richard Fuzzy 1 X 1 - Muñiz 1667 Mesh or Patch [employer] Implanted: Qty: 1 on 04/20/2012 Description: Device Machine Group Leader - Sun alElvis Device Status Text - [id number]. [facility] Data - [id number]. Procedures Procedure Name Priority Date/Time Associated Diagnosis Comme nts ANORECTAL MANOMETRY Routine 05/15/2022 Noninfective 4:37 PM CLOTH EXAMINER Gastroenteritis And Colitis Unspecif ied Crohn's Disease (HCC) Infection Urinary Tract Recurrent Prolapse Rectal Pelvic Floor Tension SURGICAL PATHOLOGY Routine 05/15/2022 Results f or 11:14 AM CLOTH EXAMINER this procedure are in the results section. GASTROENTEROLOGY IMAGE Routine 05/15/2022 Resul ts for EXAM 11:00 AM CLOTH EXAMINER this procedure are in the results section. COLONOSCOPY Routine 05/15/2022 Crohn's Disease Results for 10:57 AM CLOTH EXAMINER (HCC) this procedure Infection Urinary are in the Tract Recurrent results section. COLONOSCOPY Routine 05/15/2022 Crohn's Disease 10:57 AM CLOTH EXAMINER (HCC) Infection Urinary Tract Recurrent CT ABDOMEN PELVIS RAD - Routine 05/14/2022 Noninfective Results f or ENTEROGRAPHY WITH IV (most 1:10 PM CLOTH EXAMINER Gastroenteritis And this procedure CONTRAST inpatients and Colitis Unspecified are in the all results outpatients) section. CREATININE, POCT, B Routine 05/14/2022 Results for 11:45 AM CLOTH EXAMINER this procedure are in the results section. CREATININE, POCT, B Routine 05/14/2022 Results for 11:45 AM CLOTH EXAMINER this procedure are in the results section. from Last 3 Months Results Anorectal Manometry (05/15/2022 4:37 PM CLOTH EXAMINER) Narrative This result has an attachment that is no t available. Erica Nguyen M.D. GI PROCEDURE ORDERABLES Performing Organization Address City/State/ZIP Code Phon e Number [facility]ODAL Surgical Pathology (05/15/2022 11:14 AM CLOTH EXAMINER) Component Value Ref Test Analysis Performed At [facility] gist Range Method Time Signature 05/17/2022 DTL 5:02 PM CLOTH EXAMINER Report Arturo Monge M.D. 05/17/2022 DT L electronically 5:02 PM CLOTH EXAMINER signed by I verify that I have examined all relevant slides/materials for the specimen(s) and rendered or confirmed the diagnosis. Gross Description A: ?? Received in formalin labeled with the patie nt's name, 05/17/2022 DTL medical record number, and colon-random sites are ten 5:02 PM CLOTH EXAMINER pale rush-pink irregular soft tissue fragments, ranging from 0.1-1.0 cm in greatest dimension. ??The specimens are submitted en toto in cassette A1. ??Grossed by MELO B: ?? Received in formalin labeled with the patient's name, medical record number, and colon-sigmoid is a are four pale rush-pink irregular soft tissue fragments, is ranging from 0.4-0.6 cm in greatest dimension. ??The specimens are submitted en toto in cassette B1. ??Grossed by MELO Interpretation FINAL DIAGNOSIS 05/17/2022 DTL A. ??Colon, random sites, endoscopic biopsy: ??Colonic mucos a 5:02 PM CLOTH EXAMINER without diagnostic abnormality. ??No dysplasia. B. ??Colon, sigmoid, endoscopic biopsy: ??Fragments of tubular adenoma, low grade dysplasia. Specimen (Source) Anatomical Collection Method Collection Time Re ceived Time Location / / Volume Laterality Biopsy (Colon) 05/15/2022 11:14 AM CLOTH EXAMINER Polyp (Colon) 05/15/2022 11:28 AM CLOTH EXAMINER Narrative This result has an attachment that is no t available. Jesus Corral M.D., M.H.P.E. LAB SURG PATH ORDERABL ES Performing Organization Address City/State/ZIP Code Phon e Number [facility] - [address] [place], [place] [address] [facility] [place] [address] Laboratories-[facility] [address] Colonoscopy-Gastroenterology Image Exam (05/15/2022 11:00 AM CLOTH EXAMINER) Specimen (Source) Anatomical Collection Method Collection Time Re ceived Time Location / / Volume Laterality 05/15/2022 10:57 AM CLOTH EXAMINER Narrative [facility] - 05/15/2022 11:43 AM CLOTH EXAMINER This order has been created and auto-finalized to support the import of images acquired without order. The clini moose documentation to support these images can be found on the encounter luanne t produced images. Provider Not In System IMG NON RAD IMAGING PROCEDUR ES Performing Organization Address City/State/ZIP Code Phon e Number [facility] NA Colonoscopy (05/15/2022 10:57 AM CLOTH EXAMINER) Specimen (Source) Anatomical Collection Method Collection Time Re ceived Time Location / / Volume Laterality 05/15/2022 10:57 AM CLOTH EXAMINER Impressions [facility] - 05/15/2022 11:40 AM CLOTH EXAMINER Post-op Diagnoses: ? - The examined portion of the ile um was normal. ? - One 3 mm polyp in the sigmoid c olon, removed with a cold snare. ? Resected and retrieved. ? - The entire examined colon is ot herwise normal. No evidence of active ? IBD. Biopsied. ? - Research biopsies obtained. Narrative [facility] - 05/15/2022 11:40 AM CLOTH EXAMINER Gonda 9 GI GI Patient Name: Brittaney [...] descending colon and ? at 20cm. (IRB# [id number]) Procedural Details: ? The patient was seen, [...] preparation was evaluat ed using the BBPS (Fouke Bowel ? Preparation Scale) with scores of [...] City/State/ZIP Code Phon e Number [facility] [place] [facility] CT Abdomen Pelvis Enterography with IV Contrast (05/14/2022 1:10 PM CLOTH EXAMINER) Anatomical Region Laterality Modality Abdomen, Pelvis, Abdominal RST LOS, N/A Comp uted Tomography, Computed Abdominal ARZ LOS, Abdominal FLA LOS [place] ography Specimen (Source) Anatomical Collection Method Collection Time Re ceived Time Location / / Volume Laterality 05/14/2022 1:06 PM CLOTH EXAMINER Impressions 05/14/2022 2:06 PM CLOTH EXAMINER Active inflammation involving approximately 30 cm of distal ileum, consistent with Crohn's ileitis. Overall distribution an d severity are similar to 02/29/2016. Negative for fistula to the bladder. Narrative 05/14/2022 2:06 PM CLOTH EXAMINER EXAM: ??CT ABDOMEN PELVIS ENTEROGRAPHY WITH IV [...] Negative for fistula to the bladder. Erica VEGAS CT PROCEDURES Creatinine, POCT (05/14/2022 11:45 AM CLOTH EXAMINER)Only the most recent of2 resultswithin the time period is included. P athologist Signature Creatinine, 1.0 0.6 - 1.0 05/14/2022 PCDT POCT, B mg/dL 11:46 AM CLOTH EXAMINER Comment: ----ADDITIONAL INFORMATION---- Performed at the Point of Care Specimen Anatomical Collection Method Collection Time Receive d Time (Source) Location / / Volume Laterality Blood 05/14/2022 11:45 05/14/2022 AM CLOTH EXAMINER 11:47 AM CLOTH EXAMINER Unknown Provider LAB POCT ORDERABLES - DEVICE Performing Organization Address City/State/ZIP Code Phon e Number [facility] [address] [place] [address] LABS PCDT [facility] [place] [address] [place] [facility] [address] from Last 3 Months Insurance Payer Benefit Plan / Subscriber ID Effective Phone Address T ype Group Dates MEDICARE MEDICARE A AND [id number] 2019-Prese [address] [place] [address] [facility] [id number] 2019-Prese [address] [phone] Indemnity BLUE [place] [address] Guarantor Name Account Type Relation to Date of Phone Billing Address Patient Brittaney Roland Personal/Famil Self 1955 [address] [facility] Lucia Anguiano RN y (Home) TANESHA Bender [phone] (Work)
--- OUTSIDE RECORDS SUMMARY | 2022-05-31 09:22 | XMS_ITS | Encounter Summary ---
:1955 Author Organization [facility] Address [address] [place] [address] Care Team Providers Name Role Phone Unavailable [...] How often do you attend mosque or temple Patient refused 01/09/2022 services? Do [...] Link, Marilu Ellis M.D. [address] [place] [address] documented as of this encounter Procedures Procedure [...]
--- OUTSIDE RECORDS SUMMARY | 2022-05-31 09:22 | XMS_ITS | Encounter Summary ---
:1955 Author Organization [facility] Address [address] [place] [address] Care Team Providers Name Role Phone Unavailable [...] How often do you attend adventist or holiness Patient refused 01/09/2022 services? Do [...] Visit Dermatology Marilu Majano M.D. [address] [place] [address] documented as of this encounter Procedures Procedure [...]
--- OUTSIDE RECORDS SUMMARY | 2022-05-31 09:22 | XMS_ITS | Encounter Summary ---
:1955 Author Organization [facility] Address [address] [place] [address] Care Team Providers Name Role Phone Unavailable Primary Care Provider Unavailable Reason for Referral Outpatient (Routine) - Closed Specialty Diagnoses / Procedures Referred By Contact Refer red To Contact Dermatology Diagnoses Psoriasis Marilu Majano M.D. [facility] [address] [place] [address] Referral ID Status Reason Start Date Expiration Date Visits Requ ested Visits Authorized [id number] Closed 11/12/2021 11/12/2022 1 1 Scheduling Instructions Psoriasis follow up utpatient (Routine) - Closed Specialty Diagnoses / Procedures Referred By Contact Refer red To Contact Diagnoses Psoriasis Marilu Majano M.D. [facility] Procedures DX Hand Bilateral 2 Views and Wrist Bilateral 2 Views [address] [place] [address] Referral ID Status Reason Start Date Expiration Date Visits Requ ested Visits Authorized [id number] Closed 11/12/2021 11/12/2022 1 1 utpatient (Routine) - Closed Specialty Diagnoses / Procedures Referred By Contact Refer red To Contact Diagnoses Psoriasis Marilu Majano M.D. [facility] Procedures DX Foot Ankle Bilateral 3+ Views [address] [place] [address] Referral ID Status Reason Start Date Expiration Date Visits Requ ested Visits Authorized [id number] Closed 11/12/2021 11/12/2022 1 1 Reason for Visit Outpatient (Routine) - Closed Specialty Diagnoses / Procedures Referred By Contact Refer red To Contact Dermatology Diagnoses Psoriasis Hansa Doty M.D. [address] [address] Referral ID Status Reason Start Date Expiration Date Visits Requ ested Visits Authorized [id number] Closed 11/07/2021 11/07/2022 1 1 Encounter Details Date Type Department Care Team Description 11/12/2021 Comprehensive Visit Department of Marilu Majano Psori asis (Primary Dx); Dermatology in [place] Dermatitis Psoriasiform; [place], [place] [address] [facility] Dermatitis Asteatotic Xerotic; [address] [place], [place] [address] [phone] Social History Tobacco Use Types Packs/Day Years [...] often do you attend latter day or caodaism Patient refused 01/09/2022 services? Do [...] PM CDT Correspondence to Hansa Underwood M.D. [address] [place] [address] CHIEF COMPLAINT / REASON FOR VISIT Psoriasis HISTORY OF PRESENT ILLNESS Ms. Brittaney Anguiano TRACI Roland is a 66 y.o. female who presents today for the above. She was last seen in Dermatology at [facility] in 2012. She reports she has had a skin biopsy at outside institution, butnot sure what it showed. She has not had biopsies at [facility]. She also has a history of Crohn's [...] She will be meeting with GI at [facility] after several years in December 2021, and [...] Dermatology Melecio, Marilu Ellis M.D. [address] [place] [address] Scheduled Referrals Name Type Priority Associated Order [...] jake nt, likely degenerative. Marilu Majano M.D. [facility] PROCE DURES DX Foot Ankle [...]
--- OUTSIDE RECORDS SUMMARY | 2022-05-31 09:22 | XMS_ITS | Encounter Summary ---
:1955 Author Organization [facility] Address [address] [place] [address] Care Team Providers Name Role Phone Unavailable Primary Care Provider Unavailable Encounter Details Date Type Department Care Team Description 11/26/2021 Orders Only [facility] [address] [facility] [address] [place] [address] [place], [place] [phone] (Wo rk) Social History Tobacco Use Types [...] How often do you attend presybeterian or mormonism Patient refused 01/09/2022 services? Do [...] Communication Admitting/Central Scheduling 07/12/2022 Office Visit Dermatology LinkMarilu M.D. [address] [place] [address] documented as of this encounter Visit Diagnoses Not on filedocumented in this encounter
--- OUTSIDE RECORDS SUMMARY | 2022-05-31 09:22 | XMS_ITS | Encounter Summary ---
:1955 Author Organization [facility] Address [address] [place] [address] Care Team Providers Name Role Phone Unavailable Primary Care Provider Unavailable Encounter Details Date Type Department Care Team Description 03/02/2015 Historical Ophthalmology RST OPH Hood Chand M.D., Ph.D. [address] [place], [place] [phone] (Wo rk) Social History [...] How often do you attend baptism or scientologist Patient refused 01/09/2022 services? Do [...] On February 01, 2015, she saw her circus laborer, Dr. Liu for evaluation of this. She [...] gland dysfunction CDM Reports - EYEGEN Id: [id number] Status: Fnl documented in this encounter Plan of Treatment Upcoming Encounters Date Type Specialty Care Team Description 07/11/2022 Clinical Communication Admitting/Central Scheduling 07/12/2022 Office Visit Dermatology Melecio, Marilu Ellis M.D. [address] [place] [address] documented as of this encounter Visit Diagnoses Not on filedocumented in this encounter
--- OUTSIDE RECORDS SUMMARY | 2022-05-31 09:22 | XMS_ITS | Encounter Summary ---
:1955 Author Organization [facility] Address [address] [place] [address] Care Team Providers Name Role Phone Unavailable Primary Care Provider Unavailable Reason for Referral Outpatient (Routine) - Closed Specialty Diagnoses / Procedures Referred By Contact Refer red To Contact Dermatology Diagnoses Psoriasis Hansa Doty M.D. [facility] [address] [place] [address] Referral ID Status Reason Start Date Expiration Date Visits Requ ested Visits Authorized [id number] Closed 11/07/2021 11/07/2022 1 1 Encounter Details Date Type Department Care Team Description 11/07/2021 [facility] Hansa Dtoy Psoriasis (Primary AND CLINICS Venkatesh Pena Dx) [address] [facility] [address] [place] [address] [phone] Social History Tobacco Use Types Packs/Day Years [...] How often do you attend mandaen or latter-day Patient refused 01/09/2022 services? Do [...] Visit Dermatology Link, Marilu Ellis M.D. [address] [place] [address] Scheduled Referrals Name Type Priority Associated Order Schedule Diagnoses Dermatology Referral Outpatient Referral Routine Psoriasis Expected: 11/07/2021 (Approximate), Expires: 02/07/2023 documented as of this encounter Visit Diagnoses Diagnosis Psoriasis - Primary documented in this encounter
--- OUTSIDE RECORDS SUMMARY | 2022-05-31 09:22 | XMS_ITS | Encounter Summary ---
:1955 Author Organization [facility] Address [address] [place] [address] Care Team Providers Name Role Phone Unavailable Primary Care Provider Unavailable Encounter Details Date Type Department Care Team Description 11/16/2021 Orders Only Pharmacy Prior Auth Yadi Barbour [phone] Social History Tobacco Use Types Packs/Day Years [...] How often do you attend jewish or congregational Patient refused 01/09/2022 services? Do [...] Visit Dermatology Link, Marilu Ellis M.D. [address] [place] [address] documented as of this encounter Visit Diagnoses Not on filedocumented in this encounter
--- OUTSIDE RECORDS SUMMARY | 2022-05-31 09:22 | XMS_ITS | Encounter Summary ---
:1955 Author Organization [facility] Address [address] [place] [address] Care Team Providers Name Role Phone Unavailable Primary Care Provider Unavailable Encounter Details Date Type Department Care Team Description 11/26/2021 Orders Only Pharmacy Prior Auth [facility] [phone] Social History Tobacco Use Types Packs/Day Years [...] How often do you attend tenriism or muslim Patient refused 01/09/2022 services? Do you belong [...] Admitting/Central Scheduling 07/12/2022 Office Visit Dermatology Melecio, Mrailu Ellis M.D. [address] [place] [address] documented as of this encounter Visit Diagnoses Not on filedocumented in this encounter
--- OUTSIDE RECORDS SUMMARY | 2022-05-31 09:22 | XMS_ITS | Encounter Summary ---
:1955 Author Organization [facility] Address [address] [place] [address] Care Team Providers Name Role Phone Unavailable [...] How often do you attend denominational or buddhist Patient refused 01/09/2022 services? Do [...] venous 0 1 mg/mL injection catheter. sertraline (ZOLOFT) 100 mg Take 1 tablet by 0 tablet mouth every morning. sertraline (ZOLOFT) 50 mg Take 1 tablet by 0 03/24 tablet mouth every morning. documented as of this encounter Plan of Treatment Upcoming Encounters Date Type Specialty Care Team Description 07/11/2022 Clinical Communication Admitting/Central Scheduling 07/12/2022 Office Visit Dermatology Link, [place] [address] documented as of this encounter Visit Diagnoses Not on filedocumented in this encounter
--- OUTSIDE RECORDS SUMMARY | 2022-05-31 09:22 | XMS_ITS | Encounter Summary ---
:1955 Author Organization [facility] Address [address] [place] [address] Care Team Providers Name Role Phone Unavailable Primary Care Provider Unavailable Reason for Referral Outpatient (Routine) - Authorized Specialty Diagnoses / Procedures Referred By Contact Refer red To Contact Dermatology Diagnoses Dermatitis Asteatotic Xerotic Marilu Majano M.D. [address] [phone] Referral ID Status Reason Start Date Expiration Date Visits V isits Requested Authorized [id number] Authorized 02/08/2022 02/07/2025 1 1 Scheduling Instructions 3-4 months. Asteatotic dermatitis with Ron Majano Reason for Visit Outpatient (Routine) - Closed Specialty Diagnoses / Procedures Referred By Contact Refer red To Contact Dermatology Diagnoses Psoriasis Marilu Majano M.D. [address] [address] Referral ID Status Reason Start Date Expiration Date Visits Requ ested Visits Authorized [id number] Closed 11/12/2021 11/12/2022 1 1 Encounter Details Date Type Department Care Team Description 02/08/2022 Office Visit Department of Marilu Majano Dermatitis A steatotic Xerotic (Primary Dx); Dermatology in Venkatesh Furunculosis; [place], [place] [address] [place] [address] Keratosis Seborrheic Inflamed [address] [place] [phone] [phone] Social History Tobacco Use Types Packs/Day Years [...] How often do you attend sikhism or hindu Patient refused 01/09/2022 services? Do you belong [...] AM CDT REFERRAL: Marilu Majano M.D. 200 [place] [address] Correspondence to: Marilu Majano M.D. Supervised by: Marilu Majano M.D. Patient seen and discussed with supervising datastage consultant, who evaluated the patient and concurs with the assessment and plan. SUBJECTIVE CHIEF COMPLAINT / PURPOSE OF VISIT Rash follow-up HISTORY OF PRESENT ILLNESS Ms. Quispe Silvio TRACI Roland is a 66 y.o. female who presents for follow-up regarding rash. She was last seen in our department 11/12. 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 Home medications included Remicade for Crohn's disease and we recommended discussing risks and benefits of switching to Stelara with [place] [facility]. Patient has upcoming appointment on [...] Scheduling 07/12/2022 Office Visit Dermatology Link, Marilu Elils M.D. 200 [place] [address] Scheduled Referrals Name Type Priority Associated Order Schedule Diagnoses Dermatology office Outpatient Referral Routine Dermatitis Ex pected: visit (clinic) Asteatotic Xerotic 022 (Approximate), Expires: 05/11/2023 documented as of this encounter Visit Diagnoses Diagnosis Dermatitis Asteatotic Xerotic - Primary Furunculosis Keratosis Seborrheic Inflamed documented in this encounter
--- OUTSIDE RECORDS SUMMARY | 2022-05-31 09:22 | XMS_ITS | Encounter Summary ---
:[address] [facility] Address [address] [place] [address] Care Team Providers Name Role Phone Unavailable Primary Care Provider Unavailable Reason for Referral Outpatient (Routine) - Closed Specialty Diagnoses / Procedures Referred By Contact Refer red To Contact Diagnoses Psoriasis Marilu Majano M.D. [facility] Procedures DX Hand Bilateral 2 Views and Wrist Bilateral 2 Views [address] [place] [phone] Referral ID Status Reason Start Date Expiration Date Visits Requ ested Visits Authorized [id number] Closed 11/12/2021 11/12/2022 1 1 Reason for Visit Outpatient (Routine) - Closed Specialty Diagnoses / Procedures Referred By Contact Refer red To Contact Diagnoses Psoriasis Marilu Majano M.D. [facility] Procedures DX Hand Bilateral 2 Views and Wrist Bilateral 2 Views [address] [place] [phone] Referral ID Status Reason Start Date Expiration Date Visits Requ ested Visits Authorized [id number] Closed 11/12/2021 11/12/2022 1 1 Encounter Details Date Type Department Care Team Description 11/12/2021 Hospital Encounter Department of Radiology, Marilu Majano M.D. [facility], in [address] [place] [address] [address] [facility] [address] [place] [address] [phone] Social History Tobacco Use Types Packs/Day Years [...] How often do you attend synagogue or shinto Patient refused 01/09/2022 services? Do [...] 01/22/20 13 mouth at bedtime as needed. sertraline (ZOLOFT) 100 Take 1 tablet by 0 2011 mg tablet mouth every morning. sertraline (ZOLOFT) 50 Take 1 tablet by 0 012 [...] areas on the weekend for maintenance treatment. omega-3 acid ethyl Take 2 g by mouth. 0 7 05/15/2022 esters (LOVAZA) 1 gram capsule triamcinolone (KENALOG) Apply 1 application 454 g 3 02/08/2022 0.1 % creamIndications: topically 2 (two) Psoriasis times a day as needed (Rash). Apply to affected areas twice a day under wet wraps. documented as of this encounter Plan of Treatment Upcoming Encounters Date Type Specialty Care Team Description 07/11/2022 Clinical Communication Admitting/Central Scheduling 07/12/2022 Office Visit Dermatology Link, Marilu Ellis M.D. [address] [place] [address] documented as of this encounter Procedures Procedure [...]
--- OUTSIDE RECORDS SUMMARY | 2022-05-31 09:22 | XMS_ITS | Encounter Summary ---
:1955 Author Organization [facility] Address [address] [place] [address] Care Team Providers Name Role Phone Unavailable [...] Visit Dermatology Marilu Majano M.D. [address] [place] [address] documented as of this encounter Visit Diagnoses Not on filedocumented in this encounter
--- OUTSIDE RECORDS SUMMARY | 2022-05-31 09:22 | XMS_ITS | Encounter Summary ---
:1955 Author Organization [facility] Address [address] [place] [address] Care Team Providers Name Role Phone Unavailable Primary Care Provider Unavailable Encounter Details Date Type Department Care Team Description 02/12/2022 Orders Only Pharmacy Prior Auth Kenia Solomon [phone] Social History Tobacco Use Types Packs/Day Years [...] How often do you attend temple or baptism Patient refused 01/09/2022 services? Do [...] or slept in a snf (including now)? Education Answer Date Recorded What [...] Visit Dermatology Marilu Majano M.D. [address] [place] [address] documented as of this encounter Visit Diagnoses Not on filedocumented in this encounter
--- OUTSIDE RECORDS SUMMARY | 2022-05-31 09:22 | XMS_ITS | Encounter Summary ---
:1955 Author Organization [facility] Address [address] [place] [address] Care Team Providers Name Role Phone Unavailable [...] Visit Dermatology Marilu Majano M.D. 200 [place] [address] documented as of this encounter Visit Diagnoses Not on filedocumented in this encounter
--- OUTSIDE RECORDS SUMMARY | 2022-05-31 09:22 | XMS_ITS | Encounter Summary ---
:1955 Author Organization [facility] Address [address] [place] [address] Care Team Providers Name Role Phone Unavailable [...] How often do you attend mormonism or spiritism Patient refused 01/09/2022 services? Do [...] Marilu Ellis M.D. [address] [place] [address] documented as of this encounter Procedures Procedure [...]
--- OUTSIDE RECORDS SUMMARY | 2022-05-31 09:22 | XMS_ITS | Encounter Summary ---
:1955 Author Organization [facility] Address [address] [place] [address] Care Team Providers Name Role Phone Unavailable Primary Care Provider Unavailable Reason for Visit Reason Comments Pre-visit Intake Encounter Details Date Type Department Care Team Description 01/14/2022 Clinical Communication Visit Review in Pr e-visit Intake [place], [place] 200 [place] [address] Social History Tobacco Use Types Packs/Day Years [...] How often do you attend orthodox or caodaism Patient refused 01/09/2022 services? Do [...] or slept in a mcc (including now)? Education Answer Date Recorded What [...] Visit Dermatology Link, Marilu Ellis M.D. 200 [place] [address] documented as of this encounter Visit Diagnoses Not on filedocumented in this encounter
--- OUTSIDE RECORDS SUMMARY | 2022-05-31 09:22 | XMS_ITS | Encounter Summary ---
:1955 Author Organization [facility] Address [address] [place] [address] Care Team Providers Name Role Phone Unavailable Primary Care Provider Unavailable Encounter Details Date Type Department Care Team Description 02/08/2022 Orders Only Department of Dermatology in Marilu Riggins M.D. [place], [place] [address] [facility] [address] [place] [phone] [phone] (Wo rk) Social History Tobacco Use Types [...] How often do you attend confucianism or rastafarian Patient refused 01/09/2022 services? Do [...] 07/12/2022 Office Visit Dermatology Marilu [place] [address] documented as of this encounter Visit Diagnoses Not on filedocumented in this encounter
--- OUTSIDE RECORDS SUMMARY | 2022-05-31 09:22 | XMS_ITS | Encounter Summary ---
:1955 Author Organization [facility] Address [address] [place] [address] Care Team Providers Name Role Phone Unavailable [...] How often do you attend scientology or caodaism Patient refused 01/09/2022 services? Do [...] Link, Marilu Ellis M.D. [address] [place] [address] documented as of this encounter Procedures Procedure [...]
--- OUTSIDE RECORDS SUMMARY | 2022-05-31 09:22 | XMS_ITS | Encounter Summary ---
:1955 Author Organization [facility] Address [address] [place] [address] Care Team Providers Name Role Phone Unavailable Primary Care Provider Unavailable Reason for Visit Reason Comments Rx Prior Authorization DANNA DENIED - CALCIPOTRIENE 0. 005% OINTMENT Encounter Details Date Type Department Care Team Description 11/26/2021 Clinical Pharmacy Prior Car [facility] Prior Communication Auth [id number] Authorization (DANNA DENIED - CALCIPOTRIENE 0 .005% [...] How often do you attend christianity or muslim Patient refused 01/09/2022 services? Do [...] Visit Dermatology Marilu Majano M.D. [address] [place] [address] documented as of this encounter Visit Diagnoses Not on filedocumented in this encounter
--- OUTSIDE RECORDS SUMMARY | 2022-05-31 09:22 | XMS_ITS | Encounter Summary ---
:1955 Author Organization [facility] Address [address] [place] [address] Care Team Providers Name Role Phone Unavailable Primary Care Provider Unavailable Encounter Details Date Type Department Care Team Description 11/14/2021 Orders Only Pharmacy Prior Auth Melinda Lauren [phone] Social History Tobacco Use Types Packs/Day Years [...] How often do you attend jew or latter day Patient refused 01/09/2022 services? [...] Visit Dermatology Melecio, Marilu Ellis M.D. [address] [place] [phone] documented as of this encounter Visit Diagnoses Not on filedocumented in this encounter
--- OUTSIDE RECORDS SUMMARY | 2022-05-31 09:22 | XMS_ITS | Encounter Summary ---
:1955 Author Organization [facility] Address [address] [place] [address] Care Team Providers Name Role Phone Unavailable [...] How often do you attend zoroastrian or amish Patient refused 01/09/2022 services? Do [...] mouth 0 at bedtime as needed. sertraline (ZOLOFT) 100 Take 1 tablet by mouth 0 04/17/2012 mg tablet every morning. sertraline (ZOLOFT) 50 mg Take 1 tablet by mouth 0 04/17/2012 tablet every morning. documented as of this encounter Plan of Treatment Upcoming Encounters Date Type Specialty Care Team Description 07/11/2022 Clinical Communication Admitting/Central Scheduling 07/12/2022 Office Visit Dermatology Link, [place] [address] documented as of this encounter Visit Diagnoses Not on filedocumented in this encounter"
--- OUTSIDE RECORDS SUMMARY | 2022-05-31 09:22 | XMS_ITS | Encounter Summary ---
:1955 Author Organization [facility] Address [address] [place] [address] Care Team Providers Name Role Phone Unavailable Primary Care Provider Unavailable Encounter Details Date Type Department Care Team Description 11/27/2021 Orders Only Department of Melecio, Marilu Ellis, Psoriasis Vu lgaris (Primary Dx); Dermatology in M.D. Psoriasis Guttate; [place], [place] [address] [facility] Psoriasis [address] [place] [address] [phone] Social History Tobacco Use Types Packs/Day Years [...] How often do you attend hinduism or moravian Patient refused 01/09/2022 services? Do [...] Visit Dermatology Link, Marilu Ellis M.D. 200 [place] [address] documented as of this encounter Visit Diagnoses Diagnosis Psoriasis Vulgaris - Primary Psoriasis Guttate Psoriasis documented in this encounter
--- OUTSIDE RECORDS SUMMARY | 2022-05-31 09:22 | XMS_ITS | Encounter Summary ---
:1955 Author Organization [facility] Address [address] [place] [address] Care Team Providers Name Role Phone Unavailable Primary Care Provider Unavailable Encounter Details Date Type Department Care Team Description 03/09/2009 - Hospital Encounter HX [facility] BRE[facility] Valeria Capellan M.D. 10/07/2009 [address] [place] [address] (Wo rk) Social History Tobacco Use Types [...] How often do you attend gnosticism or protestant Patient refused 01/09/2022 services? Do [...] Link, Marilu Ellis M.D. [address] [place] [address] documented as of this encounter Procedures Procedure Name Priority Date/Time Associated Comments Diagnosis CT UROGRAM WITH IV Routine 07/13/2009 11:33 Resul ts for this CONTRAST WITH 3D AM MVA OPERATOR procedure a re in DEPENDENT WORKSTATION the re sults section. BI ULTRASOUND EXAM Routine 03/09/2009 1:24 PM Res ults for this CDT procedure are i n the results section. documented in this encounter Results CT Urogram with IV Contrast with 3D Dependent Workstation (07/13/2009 11:33 AM MVA OPERATOR) Anatomical Region Laterality Modality Abdomen, Pelvis Computed Tomography Specimen (Source) Anatomical Collection Method Collection Time Re ceived Time Location / / Volume Laterality 07/13/2009 11:33 AM MVA OPERATOR Narrative 07/13/2009 11:54 AM MVA OPERATOR 13-Jul-2009 11:33:00 ??Exam: CT Urogram w [...] Electronically signed by: ?? [place] [id number] 13-Jul-2009 11:54 ?Jose Kumra MD [phone] 13-Jul-2009 11:54 Procedure Note Jose Kumar M.D. [...] [id number] Electronically [place]: [place] [id number] [id number] 13-Jul-2009 11:54 Jose Kumar MD [id number] 13-Jul-2009 11:54 Gali Porter M.D. IMTong CT [...]
--- OUTSIDE RECORDS SUMMARY | 2022-05-31 09:22 | XMS_ITS | Encounter Summary ---
:1955 Author Organization [facility] Address [address] [place] [address] Care Team Providers Name Role Phone Unavailable Primary Care Provider Unavailable Reason for Referral Outpatient (Routine) - Closed Specialty Diagnoses / Procedures Referred By Contact Refer red To Contact Diagnoses Psoriasis Marilu Majano M.D. [facility] Procedures DX Foot Ankle Bilateral 3+ Views [address] [place] [phone] Referral ID Status Reason Start Date Expiration Date Visits Requ ested Visits Authorized [id number] Closed 11/12/2021 11/12/2022 1 1 Reason for Visit Outpatient (Routine) - Closed Specialty Diagnoses / Procedures Referred By Contact Refer red To Contact Diagnoses Psoriasis Marilu Majano M.D. [facility] Procedures DX Foot Ankle Bilateral 3+ Views [address] [place] [phone] Referral ID Status Reason Start Date Expiration Date Visits Requ ested Visits Authorized [id number] Closed 11/12/2021 11/12/2022 1 1 Encounter Details Date Type Department Care Team Description 11/12/2021 Hospital Encounter Department of Radiology, Marilu Majano M.D. [facility], in [address] [place] [address] [address] [facility] [address] [place] [address] [phone] Social History Tobacco Use Types Packs/Day Years [...] How often do you attend mosque or druze Patient refused 01/09/2022 services? Do [...] Dermatology Link, Marilu Ellis M.D. [address] [place] [address] documented as of this encounter Procedures Procedure [...]
--- OUTSIDE RECORDS SUMMARY | 2022-05-31 09:23 | XMS_ITS | Encounter Summary ---
:1955 Author Organization [facility] Address [address] [place] [address] Care Team Providers Name Role Phone Unavailable Primary Care Provider Unavailable Encounter Details Date Type Department Care Team Description 07/13/2008 Hospital En[facility] IN[facility]OBSRV Kala Mast M.D. [address] [place], [place] [address] (Wo rk) Social History [...] How often do you attend scientologist or orthodoxy Patient refused 01/09/2022 services? Do [...] Office Visit Dermatology Marilu Majano M.D. 200 [place] [address] documented as of this encounter Visit Diagnoses Not on filedocumented in this encounter
--- OUTSIDE RECORDS SUMMARY | 2022-05-31 09:23 | XMS_ITS | Encounter Summary ---
:1955 Author Organization [facility] Address [address] [place] [address] Care Team Providers Name Role Phone Unavailable Primary Care Provider Unavailable Encounter Details Date Type Department Care Team Description 06/09/2008 Hospital Encounter [facility] INPT/OBSRV Kala Mast M.D. [address] [place], [place] [address] (Wo rk) Social History [...] How often do you attend methodist or gnosticism Patient refused 01/09/2022 services? Do [...] Office Visit Dermatology Marilu Majano M.D. 200 [place] [address] documented as of this encounter Visit Diagnoses Not on filedocumented in this encounter
--- OUTSIDE RECORDS SUMMARY | 2022-05-31 09:23 | XMS_ITS | Encounter Summary ---
:1955 Author Organization [facility] Address [address] [place] [address] Care Team Providers Name Role Phone Unavailable [...] How often do you attend holiness or jew Patient refused 01/09/2022 services? Do [...] Office Visit Dermatology Marilu Majano M.D. 200 [place] [address] documented as of this encounter Visit Diagnoses Not on filedocumented in this encounter
--- OUTSIDE RECORDS SUMMARY | 2022-05-31 09:23 | XMS_ITS | Encounter Summary ---
:1955 Author Organization [facility] Address [address] [place] [address] Care Team Providers Name Role Phone Unavailable Primary Care Provider Unavailable Encounter Details Date Type Department Care Team Description 02/16/2009 Hospital Encounter [facility] INPT/OBSRV Kala Mast M.D. [address] [place], [place] [address] (Wo rk) Social [...] How often do you attend scientology or episcopalian Patient refused 01/09/2022 services? Do [...] Office Visit Dermatology Marilu Majano M.D. 200 [place] [address] documented as of this encounter Visit Diagnoses Not on filedocumented in this encounter
--- OUTSIDE RECORDS SUMMARY | 2022-05-31 09:23 | XMS_ITS | Encounter Summary ---
:1955 Author Organization [facility] Address [address] [place] [address] Care Team Providers Name Role Phone Unavailable Primary Care Provider Unavailable Encounter Details Date Type Department Care Team Description 02/02/2009 Hospital Encounter [facility]X [facility] INPT/OBSRV Kala Mast M.D. [address] [place], [place] [address] (Wo rk) Social History [...] often do you attend roman catholic or judaism Patient refused 01/09/2022 services? Do [...] Office Visit Dermatology Marilu Majano M.D. 200 [place] [address] documented as of this encounter Visit Diagnoses Not on filedocumented in this encounter
--- OUTSIDE RECORDS SUMMARY | 2022-05-31 09:23 | XMS_ITS | Encounter Summary ---
:1955 Author Organization [facility] Address [address] [place] [address] Care Team Providers Name Role Phone Unavailable Primary Care Provider Unavailable Encounter Details Date Type Department Care Team Description 04/14/2009 Hospital Encounter HX [facility] Rich Daugherty, INPT/OBSRV M.DElvis [address] [address] (Wo rk) Social History Tobacco [...] How often do you attend mormonism or anabaptist Patient refused 01/09/2022 services? Do [...] Office Visit Dermatology Marilu Majano M.D. 200 [place] [address] documented as of this encounter Visit Diagnoses Not on filedocumented in this encounter
--- OUTSIDE RECORDS SUMMARY | 2022-05-31 09:23 | XMS_ITS | Encounter Summary ---
:1955 Author Organization [facility] Address [address] [place] [address] Care Team Providers Name Role Phone Unavailable Primary Care Provider Unavailable Encounter Details Date Type Department Care Team Description 11/02/2008 Hospital Encounter HX [facility] INPT/OBSRV Kala Mast M.D. [address] [place], [place] [address] (Wo rk) Social History [...] How often do you attend shinto or zoroastrian Patient refused 01/09/2022 services? Do [...] Office Visit Dermatology Marilu Majano M.D. 200 [place] [address] documented as of this encounter Visit Diagnoses Not on filedocumented in this encounter
--- OUTSIDE RECORDS SUMMARY | 2022-05-31 09:23 | XMS_ITS | Encounter Summary ---
:1955 Author Organization [facility] Address [address] [place] [address] Care Team Providers Name Role Phone Unavailable Primary Care Provider Unavailable Encounter Details Date Type Department Care Team Description 06/02/2008 Hospital Encounter [facility]X [facility] INPT/OBSRV Kala Mast M.D. [address] [place], [place] [address] (Wo rk) Social History [...] How often do you attend caodaism or latter day Patient refused 01/09/2022 services? [...] Dermatology Marilu Majano M.D. 200 [place] [address] documented as of this encounter Visit Diagnoses Not on filedocumented in this encounter
--- OUTSIDE RECORDS SUMMARY | 2022-05-31 09:23 | XMS_ITS | Encounter Summary ---
:1955 Author Organization [facility] Address [address] [place] [address] Care Team Providers Name Role Phone Unavailable Primary Care Provider Unavailable Encounter Details Date Type Department Care Team Description 05/16/2008 Hospital Encounter HX [facility] INPT/OBSRV Kala Mast M.D. [address] [place], [place] [address] (Wo rk) Social History [...] How often do you attend congregational or baptist Patient refused 01/09/2022 services? Do [...] Office Visit Dermatology Marilu Majano M.D. 200 [place] [address] documented as of this encounter Visit Diagnoses Not on filedocumented in this encounter
--- OUTSIDE RECORDS SUMMARY | 2022-05-31 09:23 | XMS_ITS | Encounter Summary ---
:1955 Author Organization [facility] Address [address] [place] [address] Care Team Providers Name Role Phone Unavailable Primary Care Provider Unavailable Encounter Details Date Type Department Care Team Description 05/16/2008 Hospital Encounter [facility] INPT/OBSRV Irene Mahoney M.D. [address] [place] [address] (Wo rk) Social History Tobacco Use Types [...] How often do you attend mandaeism or tenriism Patient refused 01/09/2022 services? Do [...] Office Visit Dermatology Marilu Majano M.D. [address] [place] [address] documented as of this encounter Visit Diagnoses Not on filedocumented in this encounter
--- OUTSIDE RECORDS SUMMARY | 2022-05-31 09:23 | XMS_ITS | Encounter Summary ---
:1955 Author Organization [facility] Address [address] [place] [address] Care Team Providers Name Role Phone Unavailable Primary Care Provider Unavailable Encounter Details Date Type Department Care Team Description 12/08/2008 Hospital En[facility] INPT/OBSRV Kala Mast M.D. [address] [place], [place] [address] (Wo rk) Social History [...] How often do you attend buddhist or confucianist Patient refused 01/09/2022 services? Do [...] Office Visit Dermatology Marilu Majano M.D. [address] [place] [address] documented as of this encounter Visit Diagnoses Not on filedocumented in this encounter
--- OUTSIDE RECORDS SUMMARY | 2022-05-31 09:23 | XMS_ITS | Encounter Summary ---
:1955 Author Organization [facility] Address [address] [place] [address] Care Team Providers Name Role Phone Unavailable Primary Care Provider Unavailable Encounter Details Date Type Department Care Team Description 04/01/2008 Hospital Encounter [facility] INPT/OBSRV Kala Mast M.D. [address] [place], [place] [address] (Wo rk) Social History [...] How often do you attend uatsdin or congregational Patient refused 01/09/2022 services? Do [...] Office Visit Dermatology Marilu Majano M.D. [address] [place] [address] documented as of this encounter Visit Diagnoses Not on filedocumented in this encounter
--- OUTSIDE RECORDS SUMMARY | 2022-05-31 09:23 | XMS_ITS | Encounter Summary ---
:1955 Author Organization [facility] Address [address] [place] [address] Care Team Providers Name Role Phone Unavailable [...] How often do you attend hinduism or mu-ism Patient refused 01/09/2022 services? Do [...] Dermatology Link, Marilu Ellis M.D. [address] [place] [address] documented as of this encounter Visit Diagnoses Not on filedocumented in this encounter
--- OUTSIDE RECORDS SUMMARY | 2022-05-31 09:23 | XMS_ITS | Encounter Summary ---
:1955 Author Organization [facility] Address [address] [place] [address] Care Team Providers Name Role Phone Unavailable Primary Care Provider Unavailable Encounter Details Date Type Department Care Team Description 08/25/2008 Hospital Encounter [facility] INPT/OBSRV Kala Mast M.D. [address] [place], [place] [address] (Wo rk) Social History [...] or relatives? How often do you attend anglican or congregation Patient refused 01/09/2022 services? Do you belong to any clubs or organizations Yes 01/09/2022 such as anglican groups, unions, fraternal or athletic groups, or [...] Office Visit Dermatology Marilu Majano M.D. [address] [place] [address] documented as of this encounter Visit Diagnoses Not on filedocumented in this encounter
--- OUTSIDE RECORDS SUMMARY | 2022-05-31 09:23 | XMS_ITS | Encounter Summary ---
:1955 Author Organization [facility] Address [address] [place] [address] Care Team Providers Name Role Phone Unavailable [...] Dermatology Link, Marilu Ellis M.D. [address] [place] [address] documented as of this encounter Visit Diagnoses Not on filedocumented in this encounter
--- OUTSIDE RECORDS SUMMARY | 2022-05-31 09:23 | XMS_ITS | Encounter Summary ---
:1955 Author Organization [facility] Address [address] [place] [address] Care Team Providers Name Role Phone Unavailable Primary Care Provider Unavailable Encounter Details Date Type Department Care Team Description 08/25/2008 Hospital Encounter [facility] INPT/OBSRV Kala Mast M.D. [address] [place], [place] [address] (Wo rk) Social History [...] or relatives? How often do you attend yarsanism or baptist Patient refused 01/09/2022 services? Do you belong to any clubs or organizations Yes 01/09/2022 such as yarsanism groups, unions, fraternal or athletic groups, or [...] Office Visit Dermatology Marilu Majano M.D. [address] [place] [address] documented as of this encounter Visit Diagnoses Not on filedocumented in this encounter
--- OUTSIDE RECORDS SUMMARY | 2022-05-31 09:23 | XMS_ITS | Encounter Summary ---
:1955 Author Organization [facility] Address [address] [place] [address] Care Team Providers Name Role Phone Unavailable Primary Care Provider Unavailable Encounter Details Date Type Department Care Team Description 11/10/2008 Hospital Encounter [facility] INPT/OBSRV Kala Mast M.D. [address] [place], [place] [address] (Wo rk) Social History [...] or relatives? How often do you attend episcopal or anglican Patient refused 01/09/2022 services? Do you belong to any clubs or organizations Yes 01/09/2022 such as episcopal groups, unions, fraternal or athletic groups, or [...] Office Visit Dermatology Marilu Majano M.D. [address] [place] [address] documented as of this encounter Visit Diagnoses Not on filedocumented in this encounter
--- OUTSIDE RECORDS SUMMARY | 2022-05-31 09:23 | XMS_ITS | Encounter Summary ---
:1955 Author Organization [facility] Address [address] [place] [address] Care Team Providers Name Role Phone Unavailable [...] How often do you attend amish or sikhism Patient refused 01/09/2022 services? Do [...] Visit Dermatology Marilu Majano M.D. [address] [place] [address] documented as of this encounter Visit Diagnoses Not on filedocumented in this encounter
--- OUTSIDE RECORDS SUMMARY | 2022-05-31 09:23 | XMS_ITS | Encounter Summary ---
:1955 Author Organization [facility] Address [address] [place] [address] Care Team Providers Name Role Phone Unavailable Primary Care Provider Unavailable Encounter Details Date Type Department Care Team Description 12/02/2008 Hospital Encounter [facility] INPT/OBSRV Kala Mast M.D. [address] [place], [place] [address] (Wo rk) Social History [...] How often do you attend yarsanism or hindu Patient refused 01/09/2022 services? Do [...] Communication Admitting/Central Scheduling 07/12/2022 Office Visit Dermatology Mrailu Majano M.D. [address] [place] [address] documented as of this encounter Visit Diagnoses Not on filedocumented in this encounter
--- OUTSIDE RECORDS SUMMARY | 2022-05-31 09:23 | XMS_ITS | Encounter Summary ---
:1955 Author Organization [facility] Address [address] [place] [address] Care Team Providers Name Role Phone Unavailable Primary Care Provider Unavailable Encounter Details Date Type Department Care Team Description 03/31/2009 Hospital Encounter [facility] INPT/OBSRV Kala Mast M.D. [address] [place], [place] [address] (Wo rk) Social History [...] How often do you attend spiritism or alevism Patient refused 01/09/2022 services? Do [...] Office Visit Dermatology Marilu Majano M.D. [address] [place] [address] documented as of this encounter Visit Diagnoses Not on filedocumented in this encounter
--- OUTSIDE RECORDS SUMMARY | 2022-05-31 09:23 | XMS_ITS | Encounter Summary ---
:1955 Author Organization [facility] Address [address] [place] [address] Care Team Providers Name Role Phone Unavailable Primary Care Provider Unavailable Encounter Details Date Type Department Care Team Description 05/20/2008 Hospital Encounter [facility] INPT/OBSRV Kala Mast M.D. [address] [place], [place] [address] (Wo rk) Social History [...] or relatives? How often do you attend catholic or adventism Patient refused 01/09/2022 services? Do you belong to any clubs or organizations Yes 01/09/2022 such as catholic groups, unions, fraternal or athletic groups, [...] Office Visit Dermatology Marilu Majano M.D. [address] [place] [address] documented as of this encounter Visit Diagnoses Not on filedocumented in this encounter
--- OUTSIDE RECORDS SUMMARY | 2022-05-31 09:23 | XMS_ITS | Encounter Summary ---
:1955 Author Organization [facility] Address [address] [place] [address] Care Team Providers Name Role Phone Unavailable Primary Care Provider Unavailable Encounter Details Date Type Department Care Team Description 03/14/2009 Hospital Encounter [facility] INPT/OBSRV Kala Mast M.D. [address] [place], [place] [address] (Wo rk) Social [...] How often do you attend cheondoism or bahai Patient refused 01/09/2022 services? Do [...] Office Visit Dermatology Marilu Majano M.D. [address] [place] [address] documented as of this encounter Visit Diagnoses Not on filedocumented in this encounter
--- OUTSIDE RECORDS SUMMARY | 2022-05-31 09:23 | XMS_ITS | Encounter Summary ---
:1955 Author Organization [facility] Address [address] [place] [address] Care Team Providers Name Role Phone Unavailable Primary Care Provider Unavailable Encounter Details Date Type Department Care Team Description 06/30/2008 Hospital Encounter [facility] INPT/OBSRV Kala Mast M.D. [address] [place], [place] [address] (Wo rk) Social History [...] How often do you attend orthodoxy or hindu Patient refused 01/09/2022 services? Do [...] Office Visit Dermatology Marilu Majano M.D. [address] [place] [address] documented as of this encounter Visit Diagnoses Not on filedocumented in this encounter
--- OUTSIDE RECORDS SUMMARY | 2022-05-31 09:23 | XMS_ITS | Encounter Summary ---
:1955 Author Organization [facility] Address [address] [place] [address] Care Team Providers Name Role Phone Unavailable Primary Care Provider Unavailable Encounter Details Date Type Department Care Team Description 04/29/2008 Hospital Encounter [facility] INPT/OBSRV Kala Mast M.D. [address] [place], [place] [address] (Wo rk) Social History [...] How often do you attend tenriism or voodoo Patient refused 01/09/2022 services? Do [...] Office Visit Dermatology Marilu Majano M.D. [address] [place] [address] documented as of this encounter Visit Diagnoses Not on filedocumented in this encounter
--- OUTSIDE RECORDS SUMMARY | 2022-05-31 09:23 | XMS_ITS | Encounter Summary ---
:1955 Author Organization [facility] Address [address] [place] [address] Care Team Providers Name Role Phone Unavailable Primary Care Provider Unavailable Encounter Details Date Type Department Care Team Description 04/27/2009 Hospital Encounter [facility] INPT/OBSRV Irene Mahoney M.D. [address] [place] [address] (Wo rk) Social History Tobacco Use Types [...] How often do you attend nondenominational or temple Patient refused 01/09/2022 services? Do [...] Office Visit Dermatology Marilu Majano M.D. [address] [place] [address] documented as of this encounter Visit Diagnoses Not on filedocumented in this encounter
--- OUTSIDE RECORDS SUMMARY | 2022-05-31 09:23 | XMS_ITS | Encounter Summary ---
:1955 Author Organization [facility] Address [address] [place] [address] Care Team Providers Name Role Phone Unavailable [...] How often do you attend orthodox or christian Patient refused 01/09/2022 services? Do [...] Visit Dermatology Marilu Majano M.D. [address] [place] [address] documented as of this encounter Visit Diagnoses Not on filedocumented in this encounter
--- OUTSIDE RECORDS SUMMARY | 2022-05-31 09:23 | XMS_ITS | Encounter Summary ---
:1955 Author Organization [facility] Address [address] [place] [address] Care Team Providers Name Role Phone Unavailable [...] How often do you attend voodoo or congregation Patient refused 01/09/2022 services? Do [...] Link, Marilu Ellis M.D. [address] [place] [address] documented as of this encounter Procedures Procedure Name Priority Date/Time Associated Diagnosis Comme nts PLASTIC AND RECON Routine 08/24/2009 4:35 AM Resu lts for this SURGERY IMAGE EXAM SENIOR ACTUARIAL ANALYST procedure are in the results section. documented in this encounter Results PLASTIC AND RECON SURGERY IMAGE EXAM (08/24/2009 4:35 AM SENIOR ACTUARIAL ANALYST) Specimen (Source) Anatomical Location Collection Method / [...]
[2022-05-31 12:35] LABS: Albumin* 4.1 g/dL (3.3-5.0)
[2022-05-31 12:36] LABS: Chloride* 107 mmol/L (96-114); Potassium* 4.5 mmol/L (3.6-5.1); Sodium* 139 mmol/L (135-149)
[2022-05-31 12:38] LABS: Cholesterol* 142 mg/dL (90-199); Creatinine* 0.8 mg/dL (0.5-1.5); Estimated Glomerular Filt Rate 81 ml/min
[2022-05-31 12:39] LABS: Alanine Aminotransferase* 24 U/L (4-35); Alkaline Phosphatase* 78 U/L (40-150); Aspartate Amino Transferase* 30 U/L (12-35); Bilirubin Total* 0.7 mg/dL (0.1-1.5); Blood Urea Nitrogen* 16 mg/dL (7-30); Calcium* 8.7 mg/dL (8.4-10.6); Carbon Dioxide* 25 mmol/L (20-32); Glucose* 114 mg/dL (60-115); Total Protein* 7.1 g/dL (6.0-8.3); Triglycerides* 195 mg/dL (40-149)
[2022-05-31 12:40] LABS: HDL Cholesterol* 58 mg/dL (>=50); LDL Cholesterol Calculated 45 mg/dL (<100)
[2022-05-31 12:55] LABS: Vitamin D 25 Hydroxy* 29 ng/mL (30-80)
== END 2022-05-31 11:26 | disposition home or self-care (01) ==
PROVIDERS: PCP Internal Medicine; Visit Provider Internal Medicine
DX: E78.1 Pure hyperglyceridemia (principal); I10 Essential (primary) hypertension; E55.9 Vitamin D deficiency, unspecified
CPT/HCPCS: 80053; 80061; 82306

== ENCOUNTER 2022-08-01 13:21 | Outpatient (CLI) | payer MEDICARE, BC, SELFPAY ==
--- NOTE | 2022-08-01 13:20 | CRLHL7_ITS ---
For Patients: As a result of the Cures Act, medical imaging exams and procedure reports are released immediately into your electronic medical record. You may view this report before your referring provider. If you have questions, please contact your health care provider. BILATERAL SCREENING MAMMOGRAM WITH COMPUTER-AIDED DETECTION AND TOMOSYNTHESIS TECHNIQUE: CC and MLO views were obtained. These mammographic images have been obtained using full-field digital technique. These mammographic images were interpreted with the benefit of computer-aided detection. Breast tomosynthesis was used in this interpretation. COMPARISON FILM: 07/09/21, 07/07/20, 04/21/19. FINDINGS: The breasts are almost entirely fatty. IMPRESSION: There is no radiographic evidence for malignancy. ASSESSMENT: BI-RADS Category 2: Benign RECOMMENDATION: Routine screening mammogram in 1 year. A lay language report of this examination will be provided to the patient. ZACHARY SCHREIBER M.D. Diagnostic Radiologist [email or web address] Transcribed: 08/02/2022, 1:[address]/Dictated by: Zachary Schreiber MD @ 08/02/2022 9:26:00 AM (Electronically Signed)
== END 2022-08-01 13:22 | disposition home or self-care (01) ==
LOC: MAMMO 13:23
PROVIDERS: PCP Internal Medicine; Visit Provider Internal Medicine
DX: Z12.31 Encounter for screening mammogram for malignant neoplasm of breast (principal)
CPT/HCPCS: 77063; 77067

== ENCOUNTER 2022-08-16 11:30 | Outpatient (RCR) | payer MEDICARE, BC, SELFPAY ==
[2022-02-21] MEDS: diphenhydrAMINE 25 MG CAPSULE PO (10:25)
[2022-02-21] MEDS: ACETAMINOPHEN 500 MG TABLET PO (10:25)
[2022-02-21] MEDS: METHYLPREDNISOLONE SOD SUCC 40 MG/ML IVP (10:59)
--- NOTE | 2022-03-27 14:49 | ONC.NURNOTE ---
Received phone call from Dr. Hussein's nurse that patient is currently being treated for a UTI with antibiotics, but she is still able to get her remicade infusion tomorrow. Asked Sanjuanita to have Dr. Hussein write a note and send to us. Sanjuanita said that she will have him do this and fax the order.
[2022-03-28 11:40] VITALS: BP 134/79; PULSE 74; RESP 16; TEMP 36.8; O2SAT 97
[2022-03-28 11:52] VITALS: TEMP 36.1
[2022-03-28] MEDS: ACETAMINOPHEN 500 MG TABLET PO (11:52)
[2022-03-28] MEDS: diphenhydrAMINE 25 MG CAPSULE PO (11:53)
[2022-03-28] MEDS: METHYLPREDNISOLONE SOD SUCC 40 MG/ML IVP (11:58)
[2022-03-28] MEDS: 0.9 % SODIUM CHLORIDE 250 ml IV (14:17)
[2022-03-28] MEDS: SODIUM CHLORIDE 0.9 % (FLUSH) 10 ML SYRINGE IVF (14:17)
[2022-05-02 11:43] VITALS: BP 108/70; PULSE 72; RESP 16; TEMP 36.5; O2SAT 96
[2022-05-02] MEDS: ACETAMINOPHEN 500 MG TABLET PO (11:58)
[2022-05-02] MEDS: diphenhydrAMINE 25 MG CAPSULE PO (11:58)
[2022-05-02] MEDS: METHYLPREDNISOLONE SOD SUCC 40 MG/ML IVP (12:08)
[2022-06-06 12:00] VITALS: BP 123/73; PULSE 61; RESP 16; TEMP 36.8; O2SAT 93
[2022-06-06] MEDS: 0.9 % SODIUM CHLORIDE 250 ml 250 ML 35 ML IV (12:19)
[2022-06-06] MEDS: SODIUM CHLORIDE 0.9 % (FLUSH) 10 ML SYRINGE IVF (12:19)
[2022-06-06] MEDS: ACETAMINOPHEN 500 MG TABLET PO (12:25)
[2022-06-06] MEDS: diphenhydrAMINE 25 MG CAPSULE PO (12:25)
[2022-06-06] MEDS: METHYLPREDNISOLONE SOD SUCC 40 MG/ML IVP (12:33)
[2022-07-11 12:00] VITALS: BP 129/73; PULSE 73; RESP 16; TEMP 35.8; O2SAT 96
[2022-07-11] MEDS: ACETAMINOPHEN 500 MG TABLET PO (12:11)
[2022-07-11] MEDS: diphenhydrAMINE 25 MG CAPSULE PO (12:11)
[2022-07-11] MEDS: METHYLPREDNISOLONE SOD SUCC 40 MG/ML IVP (12:24)
[2022-07-11] MEDS: 0.9 % SODIUM CHLORIDE 250 ml IV (14:18)
[2022-07-11] MEDS: SODIUM CHLORIDE 0.9 % (FLUSH) 10 ML SYRINGE IVF (14:18)
--- NOTE | 2022-07-18 11:40 | URNOTE ---
Received request for prior auth for Infliximab ([id number]) Pt has medicare primary. Prior authorization is not required as services are based on medical necessity and follow medicare guidelines.
[2022-08-16 11:38] VITALS: BP 124/7; PULSE 67; RESP 18; TEMP 36.3; O2SAT 96
[2022-08-16] MEDS: diphenhydrAMINE 25 MG CAPSULE PO (11:47)
[2022-08-16] MEDS: ACETAMINOPHEN 325 MG TABLET 650 MG PO (11:53)
[2022-08-16] MEDS: METHYLPREDNISOLONE SOD SUCC 40 MG/ML IVP (12:05)
== END 2022-08-20 23:59 | disposition home or self-care (01) ==
LOC: CCIC 11:30
PROVIDERS: PCP Internal Medicine; Referring Provider Internal Medicine; Visit Provider Internal Medicine Gastroenterology
DX: K50.90 Crohn's disease, unspecified, without complications (principal)
CPT/HCPCS: 76830; 76856; 96376; 96413; 96415; A9270; J2920; J7050

== ENCOUNTER 2023-01-02 12:43 | Outpatient (CLI) | payer MEDICARE, BC, SELFPAY | END 2023-01-02 12:44 | disposition home or self-care (01) | LOC: NFLDREF 01-03 19:14 | PROVIDERS: PCP Internal Medicine; Referring Provider Internal Medicine; Visit Provider Physician Assistant Medical | DX: R30.0 Dysuria (principal); N39.0 Urinary tract infection, site not specified; I10 Essential (primary) hypertension | CPT/HCPCS: 87086 ==

== ENCOUNTER 2023-02-17 14:56 | Outpatient (CLI) | payer MEDICARE, BC, SELFPAY | END 2023-02-17 14:57 | disposition home or self-care (01) | LOC: NFLDREF 02-19 10:33 | PROVIDERS: PCP Internal Medicine; Referring Provider Internal Medicine; Visit Provider Nurse Practitioner Family | DX: N39.0 Urinary tract infection, site not specified (principal) | CPT/HCPCS: 87086; 87186 ==

== ENCOUNTER 2023-03-20 11:30 | Outpatient (RCR) | payer MEDICARE, BC, SELFPAY ==
[2022-09-24 12:07] VITALS: BP 113/72; PULSE 69; RESP 16; TEMP 36.7; O2SAT 94
[2022-09-24] MEDS: 0.9 % SODIUM CHLORIDE 250 ml 250 ML 35 ML IV (12:30)
[2022-09-24] MEDS: ACETAMINOPHEN 325 MG TABLET 650 MG PO (12:33)
[2022-09-24] MEDS: METHYLPREDNISOLONE SOD SUCC 40 MG/ML IVP (12:33)
[2022-09-24] MEDS: diphenhydrAMINE 25 MG CAPSULE PO (12:33)
[2022-10-29 11:43] VITALS: BP 140/70; PULSE 64; RESP 16; TEMP 36.6; O2SAT 97
[2022-10-29] MEDS: diphenhydrAMINE 25 MG CAPSULE PO (12:08)
[2022-10-29] MEDS: ACETAMINOPHEN 325 MG TABLET 650 MG PO (12:08)
[2022-10-29] MEDS: 0.9 % SODIUM CHLORIDE 250 ml 250 ML 35 ML IV (12:38)
[2022-10-29] MEDS: METHYLPREDNISOLONE SOD SUCC 40 MG/ML IVP (12:38)
[2022-12-03 11:24] VITALS: BP 153/81; PULSE 66; RESP 16; TEMP 36.4; O2SAT 92
[2022-12-03] MEDS: 0.9 % SODIUM CHLORIDE 250 ml 250 ML 100 ML IV (11:32)
[2022-12-03] MEDS: METHYLPREDNISOLONE SOD SUCC 40 MG/ML IVP (11:33)
[2022-12-03] MEDS: ACETAMINOPHEN 325 MG TABLET 650 MG PO (11:33)
[2022-12-03] MEDS: diphenhydrAMINE 25 MG CAPSULE PO (11:33)
[2023-01-08] MEDS: diphenhydrAMINE 25 MG CAPSULE PO (11:52)
[2023-01-08] MEDS: ACETAMINOPHEN 325 MG TABLET 650 MG PO (11:52)
[2023-01-08] MEDS: METHYLPREDNISOLONE SOD SUCC 62.5 MG/ML (125) 40 MG IVP (11:53)
[2023-01-08 15:35] VITALS: BP 109/71; PULSE 75; RESP 16; TEMP 36.1; O2SAT 93
[2023-02-13 11:33] VITALS: BP 117/72; PULSE 67; RESP 16; TEMP 36.4; O2SAT 96
[2023-02-13] MEDS: ACETAMINOPHEN 325 MG TABLET 650 MG PO (11:45)
[2023-02-13] MEDS: diphenhydrAMINE 25 MG CAPSULE PO (11:45)
[2023-02-13] MEDS: 0.9 % SODIUM CHLORIDE 250 ml 250 ML 35 ML IV (12:20)
[2023-02-13] MEDS: METHYLPREDNISOLONE SOD SUCC 62.5 MG/ML (125) 40 MG IVP (12:28)
[2023-03-20 12:02] VITALS: BP 120/71; PULSE 62; RESP 16; TEMP 36.2; O2SAT 93
[2023-03-20] MEDS: ACETAMINOPHEN 325 MG TABLET 650 MG PO (12:13)
[2023-03-20] MEDS: diphenhydrAMINE 25 MG CAPSULE PO (12:14)
[2023-03-20] MEDS: SODIUM CHLORIDE 0.9 % (FLUSH) 10 ML SYRINGE IVF (12:30)
[2023-03-20] MEDS: METHYLPREDNISOLONE SOD SUCC 40 MG/ML IVP (12:38)
[2023-03-20] MEDS: 0.9 % SODIUM CHLORIDE 250 ml 250 ML 35 ML IV (12:38)
[2023-03-20 15:30] VITALS: BP 133/68; PULSE 63; RESP 16; TEMP 36.1; O2SAT 92
== END 2023-03-23 23:59 | disposition home or self-care (01) ==
LOC: CCIC 11:30
PROVIDERS: PCP Internal Medicine; Referring Provider Internal Medicine; Visit Provider Internal Medicine Gastroenterology
DX: K50.90 Crohn's disease, unspecified, without complications (principal)
CPT/HCPCS: 96376; 96413; 96415; A9270; J2920; J2930; J7050

== ENCOUNTER 2023-04-03 13:20 | Outpatient (CLI) | payer MEDICARE, BC, SELFPAY ==
--- OUTSIDE RECORDS SUMMARY | 2023-04-04 03:31 | XMS_ITS | Continuity of Care Document ---
Author Name Unknown Organization [facility] Address [address] [address] [place] [address] Phone Care Team Providers Care Construction Project Assistant Name Role Phone Unavailable Unavailable Unavailable Allergies, Adverse Reactions, Alerts Substance Reaction Status Criticality No Known allergies Medications Medication Instructions Dosage Effective Dates (start - stop) Status Comments Oracea 40 mg 24 hr Cap Take one tablet b y mouth daily - Active Entocort EC 3 mg 24 hr Cap 2 caps a day for 2 weeks, then 1 cap daily for 2 weeks, then stop - Active Humira Pen 40 mg/0.8 mL SubQ Kit 1 injection SQ every other week - Active Pepcid unknown as needed - Active Diovan unknownCAPSULE Take one tablet by mouth daily 240mg - Active Lasix 20 mg Tab Take one tablet by mouth daily - Active ANTIOXIDANT SUPPLEMENT every day Vitamin - Active Benadryl Allergy 25 mg Tab Take one tablet by mouth daily - Active Procedures Procedure Date Offic/outpt E&m Estab Low-mod 7 Offic/outpt E&m Estab Mod-hi 2 07 Routine Serum Collection Routine Serum Collection Offic/outpt E&m Estab Mod-hi 2 07 Routine Serum Collection Offic/outpt E&m Estab Low-mod 7 Colonoscopy Flex; Dx (sep Pro) 06 Offic/outpt E m Estab Low Ugi Endo; W/bx 1/mx Advance Directives Directive Yes / No Effective Date File Name No Information Encounters Encounter Description Practice Location Reason(s) For Visit Diagnoses Date Provider Providers Copied on Encounter [facility], [address] [address], [place], [id number], [place] tel:[phone] [facility] No Information 7 No Information Offic/outpt E&m Estab Low-mod [facility], [address] [address], [place], [id number], [place] tel:[phone] [facility] Crohn's Ileitis 7 No Information Referring Provider: Louann Hawthorne, [address], [place], [address]. tel:[phone] [facility], [address] [address], [place], [id number], [place] tel:[phone] [facility] No Information 7 No Information Offic/outpt E&m Estab Mod-hi 2 [facility], [address] [address], [place], [id number], [place] tel:[phone] [facility] Crohn's Ileitis 7 No Information Referring Provider: Louann Hawthorne, [address], [place], [address]. tel:[phone] [facility], [address] [address], [place], [id number], [place] tel:[phone] [facility] Crohn's Ileitis 7 No Information Referring Provider: Louann Hawthorne, [address], [place], [address]. tel:[phone] [facility], [address] [address], [place], [id number], [place] tel:[phone] [facility] Crohn's Ileitis 7 No Information Referring Provider: Louann Morocho MD [place], [address] [facility] [address], [place], [address]. tel:[phone] Offic/outpt E&m Estab Mod-hi 2 [facility], [address] [address], [place], [id number], [place] tel:[phone] [facility] Crohn's Ileitis 8200 7 No Information Referring Provider: Louann Hawthorne, [address] [facility] [address], [place], [address]. tel:[phone] Offic/outpt E&m Estab Low-mod [facility], [address] [address], [place], [id number], [place] tel:[phone] [facility] Crohn's IleitisDiarrheaA bdominal Pain, Unspecified 3200 7 No Information Referring Provider: Louann Hawthorne, [address], [place], [address]. tel:[phone] [facility], [address] [address], [facility] [place] [place] [id number], [place] tel:[phone] [facility] Colon Cancer ScreeningHemorrh oids Nos 6 No Information Referring Provider: Louann Hawthorne, [address], [place], [address]. tel:[phone] Offic/outpt E m Estab Low [facility], [address] [address], [facility] [place], [id number], [place] tel:[phone] [facility] Crohn's small/large intestine 8200 6 No Information Referring Provider: Louann Hawthorne, [address], [place], [address]. tel:[phone] [facility], [address] [address], [facility] [place], [id number], [place] tel:[phone] [facility] Sep-0 5200 6 No Information Referring Provider: Louann Hawthorne, [address] [facility] [address], [place], [address]. tel:[phone] Family History Family Member Type Diagnosis Age At Onset First degree family history Problem (finding) ulcerati ve colitis First degree family history Problem (finding) divertic ulitis of colon First degree family history Problem (finding) Irritabl e bowel disease First degree family history Problem (finding) alcoholi sm First degree family history Problem (finding) Colon Po lyps First degree family history Problem (finding) Cholelit hasis First degree family history Problem (finding) Cancer, breast First degree family history Problem (finding) GERD First degree family history Problem (finding) Thyroid Disorder First degree family history Problem (finding) peptic u lceration First degree family history Problem (finding) asthma Payers Payer name Insurance type Covered republican ID Authoriza tion(s) No Information Social History Type Description Quantity Date Captured Comments Sex Female Smoking Status No Information Chief Complaint And Reason For Visit No Information Reason For Referral Reason For Referral No Information History Of Present Illness Encounter Date Complaint History Of Prese nt Illness No Information Functional Status Date Functional Assessmen t No Information Instructions Date Instruction Additional Infor mation No Information Assessments Type Assessment Date No Information Patient Care Teams Name Effective Dates (start - stop) Status Members No Information
== END 2023-04-03 13:21 | disposition home or self-care (01) ==
LOC: NFLDREF 04-04 03:29
PROVIDERS: PCP Internal Medicine; Referring Provider Internal Medicine; Visit Provider Internal Medicine
DX: N39.0 Urinary tract infection, site not specified (principal); N30.90 Cystitis, unspecified without hematuria
CPT/HCPCS: 87086; 87186

== ENCOUNTER 2023-04-22 16:29 | Outpatient (REF) | payer MEDICARE, BC, SELFPAY ==
[2023-04-22 16:48] LABS: Appearance Urine Clear (Clear); Bilirubin Urine Negative (Negative); Blood Urine Negative (Negative); Color Urine Yellow (Yellow); Glucose Urine Negative (Negative); Ketones Urine Negative (Negative); Leukocyte Esterase Urine Negative (Negative); Nitrite Urine Negative (Negative); Protein Urine Negative (Negative); Specific Gravity Urine 1.015 (1.000-1.030); Urobilinogen Urine 0.2 (0.2-1.0)
[2023-04-22 17:09] LABS: RBC Urine 0-2 (0-2); WBC Urine 0-2 (0-5)
== END 2023-04-22 16:30 | disposition home or self-care (01) ==
LOC: NPINS 16:29
PROVIDERS: PCP Internal Medicine; Visit Provider Urology
DX: R33.9 Retention of urine, unspecified (principal)
CPT/HCPCS: 81001; 87086

== ENCOUNTER 2023-05-12 14:38 | Outpatient (REF) | payer MEDICARE, BC, SELFPAY ==
[2023-05-12 15:17] LABS: Appearance Urine Clear (Clear); Bilirubin Urine Negative (Negative); Blood Urine Negative (Negative); Color Urine Yellow (Yellow); Glucose Urine Negative (Negative); Ketones Urine Negative (Negative); Leukocyte Esterase Urine Trace (Negative); Nitrite Urine Negative (Negative); Protein Urine Negative (Negative); Specific Gravity Urine 1.015 (1.000-1.030); Urobilinogen Urine 0.2 (0.2-1.0)
[2023-05-12 15:34] LABS: RBC Urine 0-2 (0-2); Squamous Epithelial Cell Urine Few (None-Few)
== END 2023-05-12 14:39 | disposition home or self-care (01) ==
LOC: NPINS 14:38
PROVIDERS: PCP Internal Medicine; Visit Provider Urology
DX: R33.9 Retention of urine, unspecified (principal)
CPT/HCPCS: 81001; 87086

== ENCOUNTER 2023-08-14 14:26 | Outpatient (CLI) | payer MEDICARE, BC, SELFPAY | END 2023-08-14 14:27 | disposition home or self-care (01) | LOC: NFLDREF 08-27 10:41 | PROVIDERS: PCP Internal Medicine; Referring Provider Internal Medicine; Visit Provider Internal Medicine | DX: R30.0 Dysuria (principal); N30.90 Cystitis, unspecified without hematuria | CPT/HCPCS: 87086; 87186 ==

== ENCOUNTER 2023-10-06 17:51 | Outpatient (CLI) | payer MEDICARE, BC, SELFPAY ==
--- OUTSIDE RECORDS SUMMARY | 2023-10-08 07:11 | XMS_ITS | Encounter Summary ---
Author Name Unknown Organization [facility] Address [address] [place] [address] Care Team Providers Care Squeegee Tender Name Role Phone Elsewhere, Pcp Primary Care Provider Unavailabl e Reason for Visit * Reason Onset Date Comments Med Question 09/11/2023 Encounter Details Date Type Department Care Team (Latest Contact Info) Description 09/11/2023 Clinical Communication Division of Gastroenterology in [place], [place] [address] [place] [phone] Erica Nguyen M.D. [address] [place] [phone] Med Question Social History Tobacco Use Types Packs/Day Years Used Date Smoking Tobacco: Former Cigarettes 0.8 15 0 06/23/1968 - 06/23/1978 Passive Smoke Exposure: Never Smokeless Tobacco: Never Comments:Quit and havent smo ked since. Over 40 yrs as non smoker Alcohol Use Standard Drinks/Week Comments Yes 0 (1 standard drink = 0.6 oz pure alcohol) Occational Beer or Glass of Wine Humiliation, Afraid, Rape, and Kick questionnair e Answer Date Recorded Within the last year, have y ou been afraid of your partner or ex-partner? No 07/10/2022 Within the last year, have y ou been humiliated or emotionally abused in other ways by your partner or ex-partner? No Within the last year, have y ou been kicked, hit, slapped, or otherwise physically hurt by your partner or ex-partner? No 07/10/2022 Within the last year, have y ou been raped or forced to have any kind of sexual activity by your partner or ex-partner? No 07/10/2022 Social Connection and Isolat ion Panel [NHANES] Answer Date Recorded In a typical week, how many times do you talk on the phone with family, friends, or neighbors? More than three times a week 07/10/2022 How often do you get togethe r with friends or relatives? More than three times a week 07/10/2022 How often do you attend chur or rastafari services? Patient declined 07/10/2022 Do you belong to any clubs o r organizations such as denominational groups, unions, fraternal or athletic groups, or school groups? Yes 07/10/2022 How often do you attend meet ings of the clubs or organizations you belong to? More than 4 times per year 07/10/2022 Are you , , di vorced, , never , or living with a partner? 07/10/2022 AUDIT-C Answer Date Recorded Q1: How often do you have a drink containing alc ohol? Monthly or less 07/10/2022 Q2: How many drinks containi ng alcohol do you have on a typical day when you are drinking? 1 or 2 07/10/2022 Q3: How often do you have si x or more drinks on one occasion? Never 07/10/2022 Overall Financial Resource Strain (CARDIA) Answe r Date Recorded How hard is it for you to pa y for the very basics like food, housing, medical care, and heating? Not hard at all 07/10/2022 [facility] - Occupational Stress Questionnaire Answer Date Recorded Do you feel stress - tense, restless, nervous, or anxious, or unable to sleep at night because your mind is troubled all the time - these days? Only a little 07/10/2022 Exercise Vital Sign Answer Date Recorde d On average, how many days pe r week do you engage in moderate to strenuous exercise (like a brisk walk)? 3 days 07/10/2022 On average, how many minutes do you engage in exercise at this level? 100 min 07/10/2022 Hunger Vital Sign Answer Date Recorded Within the past 12 months, y ou worried that your food would run out before you got the money to buy more. Never true 07/10/19 Within the past 12 months, t he food you bought just didn't last and you didn't have money to get more. Never true 07/10/2022 PRAPARE - Transportation Answer Date Re corded In the past 12 months, has l ack of transportation kept you from medical appointments or from getting medications? No 06/23 In the past 12 months, has l ack of transportation kept you from meetings, work, or from getting things needed for daily living? No 07/10/2022 Housing Stability Vital Sign Answer Inocente e Recorded In the last 12 months, was t here a time when you were not able to pay the mortgage or rent on time? No 07/10/2022 In the last 12 months, how many places have you lived? 1 07/10/2022 In the last 12 months, was t here a time when you did not have a steady place to sleep or slept in a halfway (including now)? No 07/10/2022 Nutrition Answer Date Recorded Nutrition: EVOO Fat Source Yes 07/10 On average, how many serving s of fruits and vegetables do you eat per day (serving size is equal to 1 cup or approximately the size of a tennis ball)? 4-5 07/10/2022 Dental Answer Date Recorded Dental: Regular Dentist Yes 01/10/20 Employment Answer Date Recorded Employment status Retired 07/10/2022 Education Answer Date Recorded What is the highest level of school you have completed or the highest degree you have received? Bachelor's degree (e.g., BA, AB, BS) 01/09/2022 Sex and Gender Information Value Date Recorded Sex Assigned at Female 01/09/2022 4:35 PM CDT Gender Identity Female 01/09/2022 4:35 PM CDT Sexual Orientation Straight 01/09/2022 4: 35 PM CDT documented as of this encounter Plan of Treatment Not on file documented as of this encounter Visit Diagnoses Not on filedocumented in this encounter Care Teams Squeegee Tender Relationship Specialty Start Date End Date Elsewhere, Pcp PCP - General Internal Medicine 05/02/23 documented as of this encounter
--- OUTSIDE RECORDS SUMMARY | 2023-10-08 07:11 | XMS_ITS | Encounter Summary ---
Author Name Unknown Organization [facility] Address [address] [place] [address] Care Team Providers Care Supervisor Insecticide Name Role Phone Elsewhere, Pcp Primary Care Provider Unavailabl e Reason for Visit * Outpatient (Routine) - Closed Specialty Diagnoses / Procedures Referred By Contact Referred To Contact Gastroenterology and Hepatology Diagnoses Ileitis Crohn's (HCC) Gali Porter M.D. [address] [place] [phone] Erica Nguyen M.D. [address] [place] [phone] Referral ID Status Reason Start Date Expiration Date Visits Re quested Visits Authorized [id number] Closed 06/04/2023 06/03/2026 1 1 Encounter Details Date Type Department Care Team (Latest Contact Info) Description 07/01/2023 1:00 PM BASKET MENDER Virtual Visit Division of Gastroenterology in [place], [place] [address] [place] [phone] Erica Nguyen M.D. [address] [place] [phone] Ileitis Crohn's (HCC) Social History Tobacco Use Types Packs/Day Years [...] How often do you attend chur or anglican services? Patient declined 07/10/2022 Do you belong to any clubs o r organizations such as voodoo groups, unions, fraternal or [...] and heating? Not hard at all 07/10/2022 [facility] - Occupational Stress [...] slept in a senior care (including now)? No 07/10/2022 Nutrition Answer Date [...] documented as of this encounter Progress Notes * Erica Nguyen M.D. 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 female who I spoke with via phone today for routine follow-up of her ileal Crohn's disease, currently on infliximab 10 milligrams/kilogram every 5 weeks. Clinically she is doing well. She has a history of Crohn's disease of the ileum and possibly duodenum diagnosed in 2005. Prior therapy includes mesalamine, budesonide, mercaptopurine, adalimumab, and currently infliximab since 2007. Additional history includes psoriasis, asteatotic dermatitis, and obstructive sleep apnea on CPAP. I 1st met her on February 13, 2022 for consultation regarding routine follow-up of her Crohn's disease. Please refer to my note from that day for full details on her history. In the past year she has clinically been doing well. She did receive 2 courses of antibiotics in the last month or so for a sinus infection with Augmentin followed by Bactrim for UTI. She states thatthis caused issues with GI symptoms, specifically diarrhea. This was actually quite significant to the point where she was having 8-10 loose stools per day and feeling dehydrated. In recent days though she feels like she is improving and that the form of her stool is no longer liquid and currently mushy in nature, with only a couple bowel movements. She is due for infliximab tomorrow. Outside of this she did undergo a sacral stem placement for some of her urinary issues. She noticesthat after that he will have occasions where she feels as though she is stool in the rectum and hassome urgency to go to the bathroom. This has not happened to many times though understandably makesher a bit hesitant about leaving the house. She finds that it is worse when she eats things that make her stools looser, like better. Otherwise generally she states that she is doing well from a Crohn's perspective. He has not had abdominal pain outside of when she got diarrhea with her antibiotics. Tolerating the infliximab well. Not particularly keen on discontinuing this. ASSESSMENT / PLAN #1 Ileal (and possibly history of duodenal) Crohn's disease, diagnosed in 2005, on infliximab 10 mg/kg every 5 weeks Ms. Anguiano and I met via phone today for follow-up of her ileal Crohn's disease. Overall she feels as though she is doing well though she did have a some diarrhea that occurred in the last month in the context of using multiple antibiotics. She feels as though clinically she is improving. Her CT enterography demonstrated maybe some minimal improvement in her longstanding mild inflammatory changes that cover approximately 30 cm of the ileum. As I had outlined in my note from May 15, 2022. She has basically had a similar degree of inflammation without much of any change since 2007, so long as she has been on infliximab and outside of this recent episode of diarrhea has been overall asymptomatic. As such, we have not felt strongly about transitioning or altering any therapy, particularly given she has not been keen you would continue the infliximab. Discussed risk for C diff given her prior history of C diff as well as recent antibiotic use. She would like to observe her symptoms over the coming days given she feels like she is improving, and also receive her next dose of infliximab tomorrow before testing for this. I will send an order for her to have this done locally. Advised her not to do so if her stools become formed We are going to get an infliximab level. If this is low we could certainly discuss increasing to every 4 week dosing. This may also be important given that she has not had any trough drawn for 8 years, and it would be important to know if she has developed antibodies. I will prescribe again her infliximab which she received that [facility]. Reviewed her next colonoscopy would be 4 years from now, which is 5 years from her colonoscopy lastyear when she was found to have a small polyp. Recall she does not have Crohn's disease in her colon. Discussed with her that if everything goes well I would plan to see her again in 1 year with laboratory study. So long as she is asymptomatic and we are not making any changes to her medications I donot feel strongly that she needs imaging. She was in agreement. ET MENDER documented in this encounter Plan of Treatment Not on file documented as of this encounter Visit Diagnoses Diagnosis Ileitis Crohn's (HCC) documented in this encounter Care Teams Supervisor Insecticide Relationship Specialty Start Date End Date Elsewhere, Pcp PCP - General Internal Medicine 05/02/23 documented as of this encounter
--- OUTSIDE RECORDS SUMMARY | 2023-10-08 07:11 | XMS_ITS | Encounter Summary ---
Author Name Unknown Organization [facility] Address [address] [place] [address] Care Team Providers Care Morphology Teacher Name Role Phone Elsewhere, Pcp Primary Care Provider Unavailabl e Encounter Details Date Type Department Care Team (Late st Contact Info) Description 08/18/2023 Orders Only Division of Gastroenterology in [place], [place] [address] [place] [phone] Rahul Fam M.D. [address] [place] [phone] Genetic Susceptibility To Disease Social History Tobacco Use Types Packs/Day Years [...] week 07/10/2022 How often do you attend [facility] or jain services? Patient declined 07/10/2022 Do you belong to any clubs o r organizations such as moravian groups, unions, fraternal or [...] and heating? Not hard at all 07/10/2022 [facility] Occup[facility] ional Health - Occupational Stress [...] or slept in a alf (including now)? No 07/10/2022 Nutrition Answer Date [...] on file documented as of this encounter Procedures Procedure Name Priority Date/Time Associated Diagnosis Comments EXT TAPESTRY Routine 11/26/2022 12:00 AM CDT Genetic Susceptibility To Disease documented in this encounter Results * EXT Tapestry (11/26/2022 12:00 AM CDT) Gene Studied BRCA1,BRCA2,MLH1,MSH 2, MSH6,PMS2,EPCAM,APOB,L DLR,LDLRAP1,PCSK9 12/31/2022 12:00 AM CDT [facility] Genetic Disease Assessed Evaluation of 11 genes associated with Hereditary Breast and Ovarian Cancer, Loaiza Syndrome and Familial Hypercholesterolemia. 12/31/2022 12:00 AM CDT [facility] Genetic Analysis Overall Interpretation Negative results through Tapestry do not replace diagnostic testing for patients with a personal or family history of cancer/hypercholestero lemia due to limitations with methodology. Consider a referral to a genetic counselor for diagnostic testing if warranted. 12/31/2022 12:00 AM CDT [facility] Genetic Analysis Report See Tapestry PDF Report No actionable gene changes were detected in the genes that cause Familial Hypercholesterolemia. The genes tested for this condition were APOB, LDLR, LDLRAP1, and PCSK9.No actionable gene changes were detected in the genes that cause Hereditary Breast and Ovarian Cancer. The genes tested for this condition were BRCA1 and BRCA2.No actionable gene changes were detected in the genes that cause Loaiza Syndrome. The genes tested for this condition were MLH1, MSH2, MSH6, PMS2 and EPCAM. DNA extracted from this individual's sample was captured and enriched using a custom set of reagents ([employer] chemistry). Targeted regions were sequenced using an Illumina DNA sequencing system. Your sequence was matched to a modified version of the [place] standard reference genome (GRCh38). Variant calling was completed using a customized version of [employer] software, requiring 20x coverage for validated variant calls. Copy Number Variants (CNVs) were called using a proprietary bioinformatics pipeline that compared the coverage profile of your sample with the coverage profiles of other reference set samples. [facility] then analyzed the generated variant data for the exons and 10 bp of flanking intronic sequence (and select tagged intronic variants) of the 11 genes included in Variab.ly from the [employer] Mobile Database. Your sample was reviewed for single nucleotide variants (SNVs), indels up to 20 bp in length, and CNVs that are known or predicted to be actionable. NOTE: This assay has limited sensitivity to CNVs smaller than a few exons. APOB, PCSK9, and LDLR interpretation and reporting is specific to the Familial Hypercholesterolemia phenotype. Variants associated with other phenotypes such as Hypobetalipoproteinemi a are not included. Some known complex variants like the inversion of exons 1-7 in the MSH2 gene (Apryl inversion), exons 11-15 of the PMS2 gene, or variants within or immediately adjacent to long homopolymer runs are not analyzed or reported. There are regions that are not covered, such as deep intronic, promoter, and enhancer regions. This assay cannot detect all variants known to increase disease risk. Other clinical diagnostic testing for these conditions could identify variants not detected by this test. If you have had previous testing, these results should be taken into consideration during risk assessments and medical management. 12/31/2022 12:00 AM CDT [facility]AK Human Reference Sequence Assembly GRCh38 12/31/2022 12:00 AM CDT [facility]AK Saliva (Mouth) 11/26/2022 Rahul Fam M.D. LAB GENETI C TESTING [facility] [employer] [address] [facility], [address] [place] [address], [facility] [employer] [address] [address] [facility], [address] [place] [address] documented in this encounter Visit Diagnoses Diagnosis Genetic Susceptibility To Disease documented in this encounter Care Teams Morphology Teacher Relationship Specialty Start Date End Date Elsewhere, Pcp PCP - General Internal Medicine 05/02/23 documented as of this encounter
--- OUTSIDE RECORDS SUMMARY | 2023-10-08 07:11 | XMS_ITS | Data Portability ---
Author Name Unknown Address [address] [place] [id number] Phone [phone] Organization [facility], [facility] Address [address] [place] [address] Care Team Providers Care Client Application Support Engineer Name Role Phone ANN GALVAN Primary Care Provider Assessment Encounter Date Assessment Date Assessment LastModified by Organization Details LastModified Time 10/30/2021 10/30/2021 Patient here for UTI . Culture sent [email or web address] Not available 10/30/2021 10:44:57 Plan of Treatment Reminders Order Date Submit Date Provider Last Modified By Organization Details Last Modified Time Details Appointments None recorded. Lab urinalysis , dipstick 2021 022 bbeckers Not available 10:43:34 culture, urine [address] [facility], [address], [place], [address], 09:11:35 urinalysis , dipstick 2021 022 Not available 10:55:24 Referral None recorded. Procedures None recorded. Surgeries None recorded. Imaging None recorded. Medication Orders Myrbetriq 50 mg tablet,ext ended release 2021 022 [id number], [address] [facility], [place], [address], 10:55:24 Patient TargetsNo targets recorded. Patient Instructions Encounter Date Encounter Id Patient Instructions Last Modified By Organization Details Last Modified Time 10/30/2021 [id number] Patient was give n Keflex 500mg Patient is to take 2 cap 2 X per day for 3 days. [email or web address] Not available 10/30/2021 10:46:20 Reason for Referral None Reported. Results Created Date Observation Date Name Description Value Unit Range Abnormal Flag LastModifiedBy Organization Detail LastModifiedTime 10/25/19 22 10/24/2021 urina lysis , dipst ick Color-Status Yellow Not Available [facility] [address], [place], [address], 10/24/2021 10:25:23 10/25/19 22 10/24/2021 urina lysis , dipst ick Clarity-Stat us Clear Not Available [facility] [address], [place], [address], 10/24/2021 10:25:23 10/31/19 22 10/30/2021 URINE CULTU RE final report microb iology result s abnormal Not Available [facility] [address], [place], [address], 11/01/2021 09:11:34 10/31/19 22 10/30/2021 urina lysis , dipst ick Color-Status Straw Not Available [facility] [address], [place], [address], 10/30/2021 10:42:01 10/31/19 22 10/30/2021 urina lysis , dipst ick Clarity-Stat us Slight ly Cloudy Not Available [facility] [address], [place], [address], 10/30/2021 10:42:01 10/31/19 22 10/30/2021 urina lysis , dipst ick Glucose-Stat us Negati ve Not Available [facility] [address], [place], [address], 10/30/2021 10:42:01 10/31/19 22 10/30/2021 urina lysis , dipst ick Bilirubin-St atus Negati ve Not Available [facility] [address], [place], [address], 10/30/2021 10:42:01 10/31/19 22 10/30/2021 urina lysis , dipst ick Ketones-Stat us Negati ve Not Available [facility] [address], [place], [address], 10/30/2021 10:42:01 10/31/19 22 10/30/2021 urina lysis , dipst ick Nitrates-Sta tus positi ve Not Available [facility] [address], [place], [address], 10/30/2021 10:42:01 10/31/19 22 10/30/2021 urina lysis , dipst ick Blood-Status Trace Not Available [facility] [address], [place], [address], 10/30/2021 10:42:01 10/31/19 22 10/30/2021 urina lysis , dipst ick Leuko-Status Small Not Available [facility] [address], [place], [address], 10/30/2021 10:42:01 07/02/19 22 06/25/2021 measu remen t of post- voidi ng resid ual urine and/o r bladd er capac ity (PROC ) No observ ation record ed. [email or web address] Not Available 07/02/2021 14:19:29 10/31/19 22 10/24/2021 bladd er scan (PROC ) No observ ation record ed. BARCODE Not Available 10/30/2021 15:21:15 Result Notes None recorded. Procedures Surgical History Date Name Laterality Status Provider Name and Address Organization Details Recorded Time 2 Bladder Scan completed Sylvia tamez [facility] 10/24/2021 10:25:41 3 colonoscopy completed Clay Hernandez MD [address] [place] [address],[address], [address], [facility] 10/24/2021 10:39:41 8 insertion of single incision mid-urethral mini-sling completed Clay Hernandez MD [address] [place] [address],[address], [address], [facility] 10/24/2021 10:41:56 total knee replacement completed Clay Hernandez MD [address] [place] [address],[address], [address], [facility] 10/24/2021 10:39:16 Imaging Results Imaging Date Name Status LastModified by Organiz ation Details LastModified Time 06/25/2021 measurement of post-voiding residual urine and/or bladder capacity (PROC) completed [email or web address] Information not available 07/02/2021 14:19:29 10/24/2021 bladder scan (PROC) completed BARCODE Information not available 10/30/2021 15:21:15 Procedure Notes None recorded. Medical Equipment None Reported. Allergies Allergen ID Allergen Name Allergen Category Reaction Reaction Severity Criticality Documentation Date Start Date Code Code System Note Provider Name and Address Organization Details Recorded Time 097178 codeine medicatio n Not available Not available Not available 10/24/2021 2670 [facility] 10:28:53 [id number] hydrochlo rothiazid e medicatio n rash Not available Not available 10/24/2021 5487 [facility] 10:29:06 789484 Humira medicatio n rash Not available Not available 10/24/2021 92643 4 RxNorm Poly mumab Sylvia Senior [facility] 2 10:29:38 Medications Name Sig Start Date Stop Date Status Note LastModified by Organization Details LastModified Time azithromyci n 250 mg tablet 10/24 completed Not Available Not Available Not Available fosfomycin tromethamin e 3 gram oral packet active Not Available Not Available Not Available benzonatate 200 mg capsule 10/24 completed Not Available Not Available Not Available lisinopril 20 mg tablet TAKE ONE TABLET BY MOUTH ONE TIME DAILY active Not Available Not Available No t Available sertraline 100 mg tablet TAKE 1 TALBET (100 MG) BY MOUTH ONCE DAILY; TAKE WITH ONE 50 MG TABLET FOR A TOTAL DAILY DOSE OF 150 MG. active Not Available Not Available No t Available Remicade 100 mg intravenous solution Inject by intraveno us route. active Not Available Not Available No t Available fluocinonid e 0.05 % topical ointment Apply 1 applicati on topically twice daily active Not Available Not Available No t Available sulfamethox azole 800 mg-trimetho prim 160 mg tablet 10/24 completed Not Available Not Available Not Available omeprazole 40 mg capsule,del ayed release TAKE ONE CAPSULE BY MOUTH ONE TIME DAILY active Not Available Not Available No t Available triamcinolo ne acetonide 0.1 % topical cream APPLY 1 APPLICATI ON TOPICALLY 2 (TWO) TIMES A DAY UNDER WET WRAPS NEEDED FOR RASH. active Not Available Not Available No t Available simvastatin 40 mg tablet TAKE ONE TABLET BY MOUTH ONE TIME DAILY active Not Available Not Available No t Available cephalexin 500 mg capsule TAKE ONE CAPSULE BY MOUTH TWICE DAILY. Take with food. 10/24 completed Not Available Not Available Not Available erythromyci n 5 mg/gram (0.5 %) eye ointment 10/24 completed Not Available Not Available Not Available oxybutynin chloride ER 5 mg tablet,exte nded release 24 hr Take 1 Tablet (5 mg) by mouth once daily. active Not Available Not Available No t Available furosemide 20 mg tablet TAKE ONE TABLET BY MOUTH ONE TIME DAILY active Not Available Not Available No t Available cefdinir 300 mg capsule Take 1 Capsule (300 mg) by mouth 2 times daily for 7 days. 10/24 completed Not Available Not Available Not Available sertraline 50 mg tablet TAKE 1 TABLET (50 MG) BY MOUTH ONCE DAILY, TAKE ALONG WITH ONE 100 MG TABLET FOR A TOTAL OF 150 MG DAILY. active Not Available Not Available No t Available cyclobenzap rine 5 mg tablet TAKE ONE TABLET (5 mg) BY MOUTH THREE TIMES DAILY As needed for muscle spasm, caution as it is sedating. active Not Available Not Available No t Available nitrofurant oin monohydrate /macrocryst als 100 mg capsule TAKE ONE CAPSULE BY MOUTH TWICE DAILY 10/24 completed Not Available Not Available Not Available Myrbetriq 50 mg tablet,exte nded release Take 1 tablet every day by oral route. 2021 active Not Available Not Available Not Avai lable Vitals Date Recorded Body height Body mass index (BMI) Body weight Provider Name and Address Organization Details Last Updated DateTime 10/24/2021 165.1 cm 36.4 kg/m2 81295.73 g Clay Hernandez MD [address] [place] [address],[address], [place], [address], [facility] 10/24/2021 10:35:09 Social History Question Answer Notes LastModified by Organizat ion Details LastModified Time Tobacco Smoking Status Former Smoker Sylvia Senior [facility], [facility] 10/24/2021 10:26:38 What Is Your Level Of Alcohol Consumption? Occasional Information not available 10/24/2021 What Is Your Level Of Caffeine Consumption? Moderate Information not available 10/24/2021 Are You Currently Employed? No Information not available 10/24/2021 When Did You Quit Smoking? 16+yearssincel astcigarette Information not available 10/24/2021 Race CAUCASION Information no t available 10/24/2021 Ethnicity Not /Latin o Information not available 10/24/2021 Preferred Language Georgian Information not available 10/24/2021 Number Of Pregnancies 3 Information not available 10/24/2021 Number Of Vaginal Deliveries 3 Information not available 10/24/2021 Recreational Drug Use No Information not available 10/24/2021 Could You Be ? No Information not available 10/24/2021 What Was The Date Of Your Most Recent Tobacco Screening? 10/24/2021 Information not available 10/24/2021 What Is Your Relationship Status? Information not available 10/24/2021 Do You Use Any Illicit Or Recreational Drugs? No Information not available 10/24/2021 Has Tobacco Cessation Counseling Been Provided? Yes [place] [address] Information not available 10/24/2021 On What Date Was Tobacco Cessation Counseling Provided? [facility] 10/24/2021 Do You Or Have You Ever Used Any Other Forms Of Tobacco Or Nicotine? [facility] not available 10/24/2021 Sex: Female Functional Status None recorded. Mental Status None recorded. Family History Relationship Description Onset Age of this Age Resolved Age Notes Maternal Grandfather Family history of cancer Bladder cancer Mother Family history of breast cancer Mother Family history of diabetes mellitus Sister Family history of breast cancer Sister Family history of diabetes mellitus Sister Family history of Hypertension Father Family history of cardiac disorder Brother Family history of cardiac disorder Brother Family history of diabetes mellitus Brother Family history of Hypertension Medical History Condition Response Other Y High Blood Pressure Y Kidney Stones N Depression Y Lung Disease N GERD/Acid Reflux Y Cancer N High Cholesterol Y Diabetes N Bleeding Disorder N Heart Disease Y Gynecological History Statement/Question Response If Post Menopausal, Age at Menopause 52 Leaking urine with intercourse N Sexually Active? Y Pain with intercourse N Obstetrics History GPAL:G 3 P 0 0 0 3 Type Value Living 3 Total 3 Past Encounters Encounter ID Performer Location Encounter Start Date Encounter Closed Date Diagnosis/Indication Diagnosis SNOMED-CT Code [id number] MD [facility] [address] [place] [address] 10/24/2021 10:11:07 10/31/2021 12:54:44 Mixed urinary incontinence [id number] MD Kb Perez [address] [place] [address] 10/30/2021 10:01:41 11/02/2021 13:12:22 Urinary tract infectious disease [id number] Health Concerns Section Related Observation LastModified by Organization Detai ls LastModified Time None Recorded Concern Status LastModified by Organization Details LastModified Time None Recorded Advance Directives Directive None Recorded Payers Encounter Date Sequence Insurance Name Policy Number Policy Randall Covered Member ID Randall Member ID Guarantor Name 10/30/2021 1 [place] [employer] Brittaney H Roland [id number] Brittaney H Roland 10/30/2021 2 [place] [id number] Brittaney H Roland [id number] Brittaney H Roland 10/24/2021 1 [place] [facility] Brittaney H Roland [id number] Brittaney H Roland 10/24/2021 2 [place] [facility] [place] ([place]ARE SUPPLEMENT) [id number] Brittaney H Roland [id number] Brittaney H Roland Notes Date Note Type Note Provider Name and Address Organization Details Recorded Time 10/24/2021 text/html HPI Notes: 65 yo female presents for evaluation of urinary incontinence / urgency. She had urethral sling placed (TVT) on 03/12/08 - Dr. Gigi Ahmadi. She voids every 2-3 hours during the day and 0-3x/night. She reports episode of urgency with leakage. She notes some leakage with sneeze / cough. She denies hesitancy, slow stream, or dysuria. She is on Oxybutynin ER 5 mg daily 10/24/21 - She presents for follow-up on urinary urgency / incontinence. She notes some improvement with Oxybutynin. She voids every 3-4 hours during the day and 1-2x/night. She still has occasional urgency with leakage - denies dysuria. - UA - no blood - no LE - PVR = 125 mL Clay Hernandez MD [address] [place] [address],[address], [place], [address], [place] - [facility] 10/27/2021 13:23:02 OBGyn Episode No OBEpisode recorded.
--- OUTSIDE RECORDS SUMMARY | 2023-10-08 07:11 | XMS_ITS | Clinical Summary ---
Author Name Unknown Organization [facility] Address [address] [place] [address] Care Team Providers Care Wooden Tank Erector Name Role Phone Elsewhere, Pcp Primary Care Provider Unavailabl e Source Comments Patient records contain information from all sites at [facility]. For routine questions regarding patient records, call [phone] during business hours, M-F 8:00 AM - 5:00 PM Central Time. Record requests for emergency care only can be directed to [phone] at any time.[facility] Allergies Active Allergy Reactions Criticality Noted Date Comments Adalimumab Rash High 02/29/2016 Codeine Nausea Only,Other (s ee comments),GI intolerance Low 04/29/2008 Nausea Hydrochlorothiazide Rash High 04/29/2008 Rash Ibuprofen Other (see comments) 08/25/2016 Patient told not to take Medications Medication Sig Dispensed Refills Start Date End Date Status hydrocortisone 2.5 % ointmentIndicat ions:Dermatitis Asteatotic Xerotic Apply 1 application topically 2 (two) times a day. Apply to rash. 454 g 3 02/08/2022 Active Additional Information Patient taking differently:1 application. topicalAs needed, Apply to rash., Reported on 04/29/2023 clindamycin (Cleocin T) 1 % lotionIndicatio ns:Furunculosis Apply 1 application topically daily. Apply to boil. 60 mL 3 02/08/2022 Active Additional Information Patient taking differently:1 application. topicalAs needed, Apply to boil., Reported on 04/29/2023 simvastatin (ZOCOR) 40 mg tablet Take 40 mg by mouth daily. 12/14/2021 Active sertraline (ZOLOFT) 100 mg tablet Take 1 tablet by mouth every morning. 04/17/2012 Active sertraline (ZOLOFT) 50 mg tablet Take 1 tablet by mouth every morning. 04/17/2012 Active omeprazole (PriLOSEC) [address] capsule Take 40 mg by mouth daily. 12/14/2021 Active melatonin 5 mg tablet Take 1 tablet by mouth at bedtime as needed. TAKING 10MG DAILY 01/21/2013 Active furosemide (LASIX) 20 mg tablet Take 20 mg by mouth daily. 12/14/2021 Active cholecalciferol (VITAMIN D3) 125 mcg (5,000 Unit) capsule daily. Active acetaminophen (TYLENOL) 500 mg tablet Take 500 mg by mouth as needed. 09/18/2016 Active krill oil 500 mg capsule Take by mouth. Active estradioL (ESTRACE) 0.1 mg/g (0.01%) vaginal cream as needed. 05/07/2022 Active metroNIDAZOLE (METROCREAM) 0.75 % creamIndication s:Other Rosacea Apply 1 application topically 2 (two) times a day. Apply to face for rosacea. 45 g 3 09/13/2022 Active Additional Information Patient taking differently:1 application. topicalAs needed, Apply to face for rosacea., Reported on 04/29/2023 lisinopriL (PRINIVIL,ZESTR IL) 40 mg tablet daily. 09/12/2022 Active acetaminophen (TYLENOL) 500 mg tablet Take 1 tablet (500 mg total) by mouth every 6 (six) hours as needed for pain. 05/02/[address] tablet Take 1 tablet (81 mg total) by mouth daily. Please restart 24 hours after your surgery on 05/14/23. 05/14/2023 Active triamcinolone (KENALOG) 0.1 % creamIndication s:Dermatitis Asteatotic Xerotic Apply 1 application topically 2 (two) times a day as needed for Rash under wet wraps. 454 g 06/19/2023 Active inFLIXimab (REMICADE) 10 mg/mL injectionIndica tions:Crohn's Disease (HCC) Infuse 10mg/kg every 4-5 weeks. Premedicate with acetaminophen 650 mg PO, diphenhydramine 25 mg PO, and methylprednisolone 40 mg IV. 1 each 11 07/03/2023 Active vancomycin (VANCOCIN) 125 mg capsuleIndicati ons:Diarrhea Take 1 capsule (125 mg total) by mouth 4 (four) times a day for 14 days. 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 09/11/2023 Clinical Communication Division of Gastroenterology in [address] [phone] Erica Nguyen M.D. Med Question 09/02/2023 9:50 AM CDT - 09/02/2023 11:59 PM CDT Hospital Encounter Department of Laboratory Medicine and Pathology, [facility], in [place], [place] [address] [place] [phone] Erica Nguyen M.D. Diarrhea Discharge Disposition: Home or Self Care 08/29/2023 Clinical Communication Division of Gastroenterology in [place], [place] [address] [place] [phone] Erica Nguyen M.D. Inflammatory Bowel Disease (C.Diff Testing) 08/18/2023 Orders Only Division of Gastroenterology in [place], [place] [address] [place] [phone] Rahul Fam M.D. Genetic Susceptibility To Disease from Last 3 Months Immunizations Name Administration Dates Next Due Influenza Split 03/23/2014,03/23/2012,04/01/2007 Tdap 01/22/2012 Family History Medical History Relation Name Comments Arthritis Brother 1 Ray Jr Coronary artery disease Brother 1 Ray Jr Diabetes Brother 1 Ray Jr Hyperlipidemia Brother 1 Ray Jr Sleep apnea Brother 1 Ray Jr Anxiety disorder Brother 2 Ashlee Alcohol abuse Father Ray Coronary artery disease Father Ray Hyperlipidemia Father Ray Hypertension Father Ray Diabetes Maternal Grandmother Karen Stroke Maternal Grandmother Karen Asthma Mother Myrt Breast cancer Mother Myrt Diabetes Mother Myrt Obesity Mother Myrt Rheum arthritis Mother Myrt Ulcerative colitis Mother Myrt Breast cancer Sister 1 Ashlee Depression Sister 1 Ashlee Psychiatric Sister 1 Ashlee Suicide Attempts Sister 1 Ashlee Anxiety disorder Sister 2 Yashira Asthma Sister 2 Yashira Depression Sister 2 Yashira Diabetes Sister 2 Yashira Hyperlipidemia Sister 2 Yashira Obesity Sister 2 Yashira Rheum arthritis Sister 2 Yashira Sleep apnea Sister 2 Yashira Ulcerative colitis Sister 2 Yashira Relation Name Status Comments Brother 1 Ray Jr Brother 2 Ashlee Father Ray Maternal Grandmother Karen Mother Myrt Sister 1 Ashlee Sister 2 Yashira Social History Tobacco Use Types Packs/Day Years Used Date Smoking Tobacco: Former Cigarettes 0.8 15 0 06/23/1968 - 06/23/1978 Passive Smoke Exposure: Never Smokeless Tobacco: Never Tobacco Cessation:Counseling Given: Not Answered Comments:Quit and havent smoked since. Over 40 yrs as non smoker [...] How often do you attend chur or restorationism services? Patient declined 07/10/2022 Do you belong to any clubs o r organizations such as jain groups, unions, fraternal or [...] and heating? Not hard at all 07/10/2022 [facility] [...] money to buy more. Never true 07/10/19 23 Within the past 12 months, t he [...] or slept in a jail (including now)? No 07/10/2022 Nutrition Answer Date [...] Orientation Straight 01/09/2022 4: 35 PM CDT Last Filed Vital Signs Vital Sign Reading Time Taken Comments Blood Pressure 129/67 05/14/2023 1:30 PM PLASTERING CONTRACTOR Pulse 69 05/14/2023 1:35 PM PLASTERING CONTRACTOR Temperature 36.7 ??C (98.1 ??F) 05/14/2023 12:[address] Respiratory Rate 21 05/14/2023 1:35 PM PLASTERING CONTRACTOR Oxygen Saturation 91% 05/14/2023 1:35 PM PLASTERING CONTRACTOR Inhaled Oxygen Concentration - - Weight 101 kg (223 lb 5.2 oz) 05/14/2023 9:12 AM PLASTERING CONTRACTOR Height 167 cm (5' 5.75) 05/01/2023 3:48 PM PLASTERING CONTRACTOR Body Mass Index 36.32 05/01/2023 3:48 PM PLASTERING CONTRACTOR Plan of Treatment Health Maintenance Due Date Last Done Comments Bone Density Scan (Osteoporosis Screen) 1954 CT Colonography 1954 Cologuard 1954 Hepatitis C Screening 1954 Lipid (Cholesterol) Screening 1955 Mammogram 03/23/2016 03/23/2015 (Perf ormed elsewhere), 03/04/2014, 01/14/2013, Additional history exists Depression Screening (Annual PHQ-2) 06/23/2023 Fall Risk Screen (Annual) 06/23/2023 Office Visit for Blood Pressure Check / Re-check 08/01/2023 05/01/2023 Potassium Level 05/01/2024 05/01/2023, 01/22, 08/27/2019, Additional history exists Sodium Level 05/01/2024 05/01/2023, 01/22, 08/27/2019, Additional history exists Creatinine Level (Kidney Function Test) 06/12/2024 06/12/2023, 05/01/2023, 05/14/2022, Additional history exists Fasting Glucose for Diabetes Screening 05/01/2026 05/01/2023, 02/13/2022, 08/27/2019, Additional history exists Colonoscopy 05/15/2027 05/15/2022, 04/24, 05/15/2022, Additional history exists Colorectal Cancer Surveillance 05/15/2027 DTaP,Tdap,and Td Vaccines (4 - Td or Tdap) 09/12/2032 09/12/2022, 01/22/2012, 12/17/2011, Additional history exists Cervical Cancer Screening Discontinued 2015 (Performed elsewhere), 12/20/2013 (Performed elsewhere), 10/05/2010 (Performed elsewhere) Pneumococcal vaccine (65+ years) Completed 12/21/2020, 04/04/2020 Zoster Vaccines Completed 12/11/2022, 08/22, 02/23/2015 Influenza Vaccine Completed 03/17/2023, , 04/11/2021, Additional history exists COVID-19 Vaccine Completed 04/03/2023, , 04/17/2022, Additional history exists HPV Vaccines Aged Out No longer eligi ble based on patient's age to complete this topic Medical Devices Implanted Type Area Microbiology Instructor Device Identifier Shelf Expiration Date Model / Serial / Lot Hardware E.G. Pins/Screws/Lloyd s Hardware e.g. pins/screws/r ods Scalp [place]-Screw 1.5x 4mm - Muñiz [id number] Implanted:Qty: 3 on 04/20/2012 Hardware e.g. pins/screws/r ods [place] Description:Device Manufactu rer - [employer].. Device Status Text - [id number]. [place]-Mesh 90x90x.6mm(Gold ) - Muñiz [id number] Implanted:Qty: 1 on 04/20/2012 Hardware e.g. pins/screws/r ods [place] Description:Device Manufactu rer - [employer].. Device Status Text - [id number]. Knee Implant- 6 Implanted:11/21 (Quantity not on file) Knee Implant Left: Knee Knee Implant- 6 Implanted:11/21 (Quantity not on file) Knee Implant Right: Knee [place] Richard Fuzzy 1 X 1 - Muñiz [id number] Implanted:Qty: 1 on 04/20/2012 Mesh or Patch [facility] Description:Device Manufactu [place]. Device Status Text - [id number]. [facility] Data - [id number]. Gen Nrstm F15 6.0l30d50 - [id number] - [id number] Implanted:Qty: 1 on 05/14/2023 by Caroline Hatfield D.O. at [facility] Sacral Nerve Stimulator N/A: Back [employer] Inc 01/22/2024 [id number] / [id number] / Kt Piper Ld Str Crv Stylt [facility] - [id number] - [id number] Implanted:Qty: 1 on 05/14/2023 by Caroline Hatfield D.O. at [facility] Nguyen/Gonda Sacral Nerve Stimulator N/A: Back Axonics Modulation [employer] 10/04/2025 1201 / [id number] / Prgrmr Pt Rem Ctrl Snm - [id number] - [id number] Implanted:Qty: 1 on 05/14/2023 by Caroline Hatfield D.O. at [facility] Nguyen/Gonda Sacral Nerve Stimulator N/A: Back [employer]onics Modulation [employer] Inc 05/22/2033 2301 / [id number] / Procedures Procedure Name Priority Date/Time Associated Diagnosis Comments C. DIFFICILE TOXIN PCR, F Routine 09/07/2023 9:09 AM CDT Diarrhea CREATININE WITH EGFR, S/P Routine 06/12/2023 9:37 AM PLASTERING CONTRACTOR Ileitis Crohn's (HCC) BASIC METABOLIC PANEL, S/P Routine 05/01/2023 2:55 PM PLASTERING CONTRACTOR Preanesthetic Medical Exam COLONOSCOPY Routine 05/15/2022 10:57 AM PLASTERING CONTRACTOR Crohn's Disease (HCC) Infection Urinary Tract Recurrent BI BREAST SCREENING BILATERAL Routine 03/04/2014 1:57 PM CDT from Last 3 Months or Most Recently Relevant to Health Maintenance Results * (ABNORMAL) Clostridioides (Clostridium) Difficile Toxin, Molecular Detection, PCR, Feces (09/07/2023 9:09 AM CDT) C. difficile Toxin, F Positive( A) Negative 09/07/2023 10:50 AM CDT DTL Semi-Urgent This is a semi-urge nt result([place] ) [facility] Stool (Stool) 09/07/2023 9:0 9 AM CDT 09/07/2023 9:51 AM CDT Narrative Resulting Agency Comment Unable to Determine Date and Time of Collection Erica Nguyen M.D. LAB MICROBIOLOGY - GENERAL ORDERABLES [facility] [address] [place], [place] [id number] [address] * Creatinine with Estimated GFR (06/12/2023 9:37 AM PLASTERING CONTRACTOR) Creatinine 0.90 0.59 - 1.04 mg/dL 06/12/2023 11:03 AM PLASTERING CONTRACTOR DTL Estimated GFR (eGFR) 70 >=60 mL/min/BSA 06/12/2023 11:03 AM PLASTERING CONTRACTOR DTL Comment: Estimated GFR calculated using the 2020 CKD_EPI creatinine equation. Blood (Blood, Venous) 06/12/2023 9:37 AM PLASTERING CONTRACTOR 06/12/2023 10:22 AM PLASTERING CONTRACTOR Gali Porter M.D. LAB BLOOD ADD-ON Performing Organization Address [facility] Co de Phone Number [facility] [address] [place] [address], [facility] [address] [place] [address] * (ABNORMAL) Basic Metabolic Panel (05/01/2023 2:55 PM PLASTERING CONTRACTOR) Potassium, S 4.1 3.6 - 5.2 mmol/L 05/01/2023 3:48 PM PLASTERING CONTRACTOR DTL Sodium, S 140 135 - 145 mmol/L 05/01/2023 3:48 PM PLASTERING CONTRACTOR DTL Chloride, S 104 98 - 107 mmol/L 05/01/2023 3:48 PM PLASTERING CONTRACTOR DTL Bicarbonate, S 24 22 - 29 mmol/L 05/01/2023 3:48 PM PLASTERING CONTRACTOR DTL Anion Gap 12 7 - 15 05/01/2023 3:48 PM PLASTERING CONTRACTOR DTL BUN (Blood Urea Nitrogen), S 15 6 - 21 mg/dL 05/01/2023 3:48 PM PLASTERING CONTRACTOR DTL Creatinine 1.14(H) 0.59 - 1.04 mg/dL 05/01/2023 3:48 PM PLASTERING CONTRACTOR DTL Estimated GFR (eGFR) 52(L) >=60 mL/min/BSA 05/01/2023 3:48 PM PLASTERING CONTRACTOR DTL Comment: Estimated GFR calculated using the 2020 CKD_EPI creatinine equation. Calcium, Total, S 9.1 8.8 - 10.2 mg/dL 05/01/2023 3:48 PM PLASTERING CONTRACTOR DTL Glucose, S 137 70 - 140 mg/dL 05/01/2023 3:48 PM PLASTERING CONTRACTOR DTL Blood (Blood, Venous) 05/01/2023 2:55 PM PLASTERING CONTRACTOR 05/01/2023 3:27 PM PLASTERING CONTRACTOR Ernie Lincoln APRN.NElvisPElvis, M.S.N. [place] Bertha BLOOD ADD-ON [facility] [address] [place] [address], [facility] DTL [place] [place] [address] [place] [address] * BI Breast Screening Bilateral (03/04/2014 1:57 PM CDT) Anatomical Region Laterality Modality Breast Bilateral Mammography 03/04/2014 1:57 PM CDT Impressions 03/07/2014 11:02 AM CDT NEGATIVE There is no mammographic evidence of malignancy. ?? RECOMMENDATION: A 1 year screening mammogram is recommended. ?? The patient will receive a letter notifying her of the results. ?? Jesus Pisano M.D. ? rtf/penrad:03/07/2014 11:00:58 ?? letter sent: 1S/2S - Negative Screen ?? Mammogram BI-RADS: 1 Negative Electronically signed by: ?? Lizett Pisano MD [id number] 07-Mar-2014 11:02 Narrative 03/07/2014 11:02 AM CDT 04-Mar-2014 13:57:00 ??Exam: Mammo Screen Bilat Indications: Screening Mammogram Breast Ca ORIGINAL REPORT - 07-Mar-2014 11:02:00 EXAM: BILATERAL DIGITAL SCREENING MAMMOGRAM WITH CAD: 03/04/2014 HISTORY/INDICATION: Screening Mammogram Breast Ca. ?? Current study was also evaluated with a Computer Aided Detection (CAD) system. ?? COMPARISON: ??Comparison is made to prior exams. ?? DENSITY: ??(D1) The tissue of both breasts is almost entirely fat. FINDINGS: ??No significant masses, calcifications, or other findings ?? are seen in either breast. ?? There has been no significant interval change. Procedure Note Jesus Pisano M.D., Ph.D. - 09/19/2017 04-Mar-2014 13:57:00 Exam: Mammo Screen Bilat Indications: Screening Mammogram Breast Ca ORIGINAL REPORT - 07-Mar-2014 11:02:00 EXAM: BILATERAL DIGITAL SCREENING MAMMOGRAM WITH CAD: 03/04/2014 HISTORY/INDICATION: Screening Mammogram Breast Ca. Current study was also evaluated with a Computer Aided Detection (CAD) system. COMPARISON: Comparison is made to prior exams. DENSITY: (D1) The tissue of both breasts is almost entirely fat. FINDINGS: No significant masses, calcifications, or other findings are seen in either breast. There has been no significant interval change. IMPRESSION: NEGATIVE There is no mammographic evidence of malignancy. RECOMMENDATION: A 1 year screening mammogram is recommended. The patient will receive a letter notifying her of the results. Jesus Pisano M.D. rtf/penrad:03/07/2014 11:00:58 letter sent: 1S/2S - Negative Screen Mammogram BI-RADS: 1 Negative Electronically signed by: Lizett Pisano MD [id number] 07-Mar-2014 11:02 Historical Provider IMG BI PROCEDURES from Last 3 Months or Most Recently Relevant to Health Maintenance Care Teams Wooden Tank Erector Relationship Specialty Start Date End Date Elsewhere, Pcp PCP - General Internal Medicine 05/02/23
--- OUTSIDE RECORDS SUMMARY | 2023-10-08 07:11 | XMS_ITS ---
Author Name Unknown Organization [facility] Address [address] [place] [address] Care Team Providers Care Automobile Technician Name Role Phone Unavailable Unavailable Unavailable Surgery Details Not on file Complications Check Surgery Details section. Procedure Estimated Blood Loss Check Surgery Details section. Procedure Findings Check Surgery Details section. Procedure Specimens Taken Check Surgery Details section.
--- OUTSIDE RECORDS SUMMARY | 2023-10-08 07:11 | XMS_ITS | Encounter Summary ---
Author Name Unknown Organization [facility] Address [address] [place] [address] Care Team Providers Care Firearms Instructor Name Role Phone Elsewhere, Pcp Primary Care Provider Unavailabl e Encounter Details Date Type Department Care Team (Late st Contact Info) Description 03/02/2015 Historical Ophthalmology [facility] Cayetano Chand M.D., Ph.D. [address] [place] [phone] Social History Tobacco Use Types Packs/Day Years Used Date Smoking Tobacco: Never Assessed Sex and Gender Information Value Date Recorded Sex Assigned at Female 01/09/2022 4:35 PM CDT Gender Identity Female 01/09/2022 4:35 PM CDT Sexual Orientation Straight 01/09/2022 4: 35 PM CDT documented as of this encounter Progress Notes * Cayetano Chand M.D., Ph.D. - 03/02/2015 7:27 [...] On February 01, 2015, she saw her compliance attorney, Dr. Liu for evaluation of this. 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 Repeat MRI on 02/13/15 was unremarkable. Note that her sister had a history of either multiple sclerosis or lupus and also has breast cancer. She when she was 59. Mrs. Roland has been on Humira in the past and has been on infliximab since 2007. PAST MEDICAL/SURGICAL HISTORY 1. Crohn's disease diagnosed 2005; treated with Humira, Pentasa, Entocort 6-MP, and [...] and retina because if there was truly abinasal defect, it would be either a retina [...] gland dysfunction CDM Reports - EYEGEN Id: [id number] Status: Fnl documented in this encounter Plan of Treatment Not on file documented as of this encounter Visit Diagnoses Not on filedocumented in this encounter Care Teams Firearms Instructor Relationship Specialty Start Date End Date Elsewhere, Pcp PCP - General Internal Medicine 05/02/23 documented as of this encounter
--- OUTSIDE RECORDS SUMMARY | 2023-10-08 07:11 | XMS_ITS | Encounter Summary ---
Author Name Unknown Organization [facility] Address [address] [place] [id number] Care Team Providers Care Conveyor Belt Repairer Name Role Phone Elsewhere, Pcp Primary Care Provider Unavailabl e Reason for Visit * Reason Onset Date Comments Inflammatory Bowel Disease 08/29/2023 C.Dif f Testing Encounter Details Date Type Department Care Team (Latest Contact Info) Description 08/29/2023 Clinical Communication Division of Gastroenterology in [place], [place] [address] [place] [address] Erica Nguyen M.D. [address] [place] [phone] Inflammatory Bowel Disease (C.Diff Testing) Social History Tobacco Use Types Packs/Day Years [...] How often do you attend chur or voodoo services? Patient declined 07/10/2022 Do you belong to any clubs o r organizations such as bahai groups, unions, fraternal or [...] or slept in a fdc (including now)? No 07/10/2022 Nutrition Answer Date [...] documented as of this encounter Miscellaneous Notes * Telephone Encounter - Tracy Szymanski R.N. - 09/03/2023 12:40 PM CDT SUBJECTIVE CHIEF COMPLAINT / REASON FOR CALL Inflammatory Bowel Disease (C.Diff Testing) Information Discussed Returned call to Dorothy at [facility] (ph: [phone]) to discuss patient's upcoming infliximab infusion scheduled for this September 04. Dorothy asked if patient should receive infliximab infusion if she has a possible C.Difficile infection. Relayed Dr. Nguyen's recommendation it is fine for her to get infliximab infusion; she should only avoid if she develops any issues withfevers or becomes more ill with her symptoms. Dorothy asked what symptoms to monitor for; RN discussedthat if patient has worsening bowel movement frequency, abdominal cramping/pain, or develops feversthen she should notify IBD clinic for Dr. Nguyen's recommendations before giving infusion. Dorothy was in agreement with this plan of care. PLAN Information/Education: patient/caller able to teach back Caller agreeable to plan of care: yes The following references were used: nursing clinical judgement and provider Dr. Nguyen * Telephone Encounter - Concepcion Avila R.N. - 09/02/2023 12:50 PM CDT SUBJECTIVE CHIEF COMPLAINT / REASON FOR CALL No chief complaint on file. PLAN The following information was provided: Call placed to patient to discuss her questions and let her know Dr. Nguyen's responses. I informed patient that Dr. Nguyen would recommended starting with the stool testing first as incontinence can be exacerbated by acute GI infection and she would not suggest pursuing any additional testing orworkup if she had an infection that needed to be treated first. I also let her know Dr. Nguyen states she would not necessarily expect her sacral nerve stimulator to cause incontinence as this is sometimes used as a treatment for incontinence. Patient given option to either wait for mail out kit for Cdiff testing or to take an order to complete at her local lab. She prefers to do this via mail out kit. She asked about using a medication toslow stools, which I advised against at this time given possibility for acute GI infection. She states sometimes she gets diarrhea from eating certain foods and imodium does not work. She would like to know if there is another medication she can try (not in the setting of acute infection) but on normal day to day basis. I will talk with Dr. Nguyen to see if she has any recommendations and will send a portal message to the patient. Discussed we did not have the infliximab trough but Dr. Nguyen states this will be helpful to know. Patient will call the lab and ask that they fax this to us. Information/Education: patient/caller able to teach back The following references were used: nursing clinical judgement and provider Dr. Nguyen documented in this encounter Plan of Treatment Not on file documented as of this encounter Results * (ABNORMAL) Clostridioides (Clostridium) Difficile Toxin, Molecular Detection, PCR, Feces (09/07/2023 9:09 AM CDT) C. difficile Toxin, F Positive( A) Negative 09/07/2023 10:50 AM CDT DTL Semi-Urgent This is a semi-urge nt result([facility] ) [facility] Stool (Stool) 09/07/2023 9:0 9 AM CDT 09/07/2023 9:51 AM CDT Narrative Resulting Agency Comment Unable to Determine Date and Time of Collection Erica Nguyen M.D. LAB MICROBIOLOGY - GENERAL ORDERABLES [facility] [address] [place] [address], [facility] [address] [place] [address] documented in this encounter Visit Diagnoses Diagnosis Diarrhea- Primary documented in this encounter Care Teams Conveyor Belt Repairer Relationship Specialty Start Date End Date Elsewhere, Pcp PCP - General Internal Medicine 05/02/23 documented as of this encounter
--- OUTSIDE RECORDS SUMMARY | 2023-10-08 07:11 | XMS_ITS | Encounter Summary ---
Author Name Unknown Organization [facility] Address [address] [place] [address] Care Team Providers Care Inspector Structural Bonding Name Role Phone Elsewhere, Pcp Primary Care Provider Unavailabl e Reason for Referral * Outpatient (Routine) - Authorized Specialty Diagnoses / Procedures Referred By Contac t Referred To Contact Diagnoses Incontinence Urinary Retention Urinary Urgency Urinary Frequency Urinary Procedures URO Uroflow Caroline Hatfield D.O. [address] [place] [phone] [facility] Referral ID Status Reason Start Date Expiration Date V isits Requested Visits Authorized [id number] Authorized 10/06/2023 10/05/2024 1 1 * Outpatient (Routine) - Authorized Specialty Diagnoses / Procedures Referred By Contac t Referred To Contact Urology Caroline Hatfield D.O. [address] [place] [phone] Caroline Hatfield D.O. 200 [place] [address] Referral ID Status Reason Start Date Expiration Date V isits Requested Visits Authorized [id number] Authorized 10/06/2023 04/06/2025 1 1 Encounter Details Date Type Department Care Team (Late st Contact Info) Description 10/06/2023 Clinical Communication Department of Urology in [place], [place] 200 [place] [address] Caroline Hatfield D.O. 200 [place] [address] Social History Tobacco Use Types Packs/Day Years [...] 07/10/2022 How often do you attend chur ch or restoration services? Patient declined 07/10/2022 Do you belong to any clubs o r organizations such as christian groups, unions, fraternal or [...] and heating? Not hard at all 07/10/2022 [facility] of Occupat ional Health - Occupational Stress [...] or slept in a fpc (including now)? No 07/10/2022 Nutrition Answer Date [...] as of this encounter Miscellaneous Notes * Addendum Note - Kasey Celis RElivsN. - 10/06/2023 2:58 PM CDTAddended by: KASEY CELIS on: 10/06/2023 02:58 PM Modules accepted: Orders * Addendum Note - Kasey Celis RElvisN. - 10/06/2023 1:55 PM CDTAddended by: KASEY CELIS on: 10/06/2023 01:55 PM Modules accepted: Orders documented in this encounter Plan of Treatment Scheduled Orders Name Type Priority Associated Diagnoses Orde r Schedule URO Uroflow Procedure Routine Incontinence Urinary Retention Urinary Urgency Urinary Frequency Urinary Expected: 10/06/2023, Expires: 01/04/2025 Urinalysis, with Microscopic: Urine, Midstream Lab Routine Incontinence Urinary Retention Urinary Urgency Urinary Frequency Urinary Expected: 10/06/2023, Expires: 01/04/2025 Bacterial Culture, Aerobic + Susceptibility, Urine Microbiology Routine Incontinence Urinary Retention Urinary Urgency Urinary Frequency Urinary Expected: 10/06/2023, Expires: 01/04/2025 Scheduled Referrals Name Type Priority Associated Diagnoses Orde r Schedule Urology office visit (clinic) Outpatient Referral Routine Expected: 10/06/2023, Expires: 01/04/2025 documented as of this encounter Visit Diagnoses Diagnosis Incontinence Urinary- Primary Retention Urinary Urgency Urinary Frequency Urinary documented in this encounter Care Teams Inspector Structural Bonding Relationship Specialty Start Date End Date Elsewhere, Pcp PCP - General Internal Medicine 05/02/23 documented as of this encounter
--- OUTSIDE RECORDS SUMMARY | 2023-10-08 07:11 | XMS_ITS | Referral Summary ---
Author Name Unknown Organization [facility] Address [address] [place] [address] Care Team Providers Care Lifter Name Role Phone Elsewhere, Pcp Primary Care Provider Unavailabl e Source Comments Patient records contain information from all sites at [facility]. For routine questions regarding patient records, call [phone] during business hours, M-F 8:00 AM - 5:00 PM Central Time. Record requests for emergency care only can be directed to [phone] at any time.[facility] Encounters Date Type Department Care Team Description 10/06/2023 Clinical Communication Department of Urology in [place], [place] [address] [place] [address] Caroline Hatfield D.O. 09/11/2023 Clinical Communication Division of Gastroenterology in [place], [place] [address] [place] [address] Erica Nguyen M.D. Med Question 09/02/2023 9:50 AM CDT - 09/02/2023 11:59 PM CDT Hospital Encounter Department of Laboratory Medicine and Pathology, [facility], in [place], [place] [address] [place] [address] Erica Nguyen M.D. Diarrhea Discharge Disposition: Home or Self Care 08/29/2023 Clinical Communication Division of Gastroenterology in [place], [place] [address] [place] [address] Erica Nguyen M.D. Inflammatory Bowel Disease (C.Diff Testing) 08/18/2023 Orders Only Division of Gastroenterology in [place], [place] [address] [place] [address] Rahul Fam M.D. 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 Patient declined 07/10/2022 Do you belong to any clubs o r organizations such as restorationism groups, unions, fraternal or [...] and heating? Not hard at all 07/10/2022 [facility] [place] of Occupat ional Health - Occupational Stress [...] or slept in a penitentiary (including now)? No 07/10/2022 Nutrition Answer Date [...] Comments Blood Pressure 129/67 05/14/2023 1:30 PM CAN VACUUM TESTER Pulse 69 05/14/2023 1:35 PM CAN VACUUM TESTER Temperature 36.7 ??C (98.1 ??F) 05/14/2023 12:[address] Respiratory Rate 21 05/14/2023 1:35 PM CAN VACUUM TESTER Oxygen Saturation 91% 05/14/2023 1:35 PM CAN VACUUM TESTER Inhaled Oxygen Concentration - - Weight 101 kg (223 lb 5.2 oz) 05/14/2023 9:12 AM CAN VACUUM TESTER Height 167 cm (5' 5.75) 05/01/2023 3:48 PM CAN VACUUM TESTER Body Mass Index 36.32 05/01/2023 3:48 PM CAN VACUUM TESTER Plan of Treatment Not on file Medical Devices Implanted Type Area Cloth Bin Packer Device Identifier Shelf Expiration Date Model / Serial / Lot Hardware E.G. Pins/Screws/Lloyd s Hardware e.g. pins/screws/r ods Scalp Nevaeh-Screw 1.5x 4mm - [id number] [id number] Implanted:Qty: 3 on 04/20/2012 Hardware e.g. pins/screws/r ods [place] Description:Device Manufactu rer - Nevaeh Florina.. Device Status Text - [id number]. [place]-Mesh 90x90x.6mm(Gold ) - Muñiz [id number] Implanted:Qty: 1 on 04/20/2012 Hardware e.g. pins/screws/r ods [place] Description:Device Manufactu rer - Nevaeh Florina.. Device Status Text - [id number]. Knee Implant- 6 Implanted:11/21 (Quantity not on file) Knee Implant Left: Knee Knee Implant- 6 Implanted:11/21 (Quantity not on file) Knee Implant Right: Knee Dahlen Richard Fuzzy 1 X 1 - Muñiz [id number] Implanted:Qty: 1 on 04/20/2012 Mesh or Patch Shogether Description:Device Manufactu Be At One. Device Status Text - [id number]. [facility] Data - [id number]. Gen Nrstm F15 [id number] - [id number] - [id number] Implanted:Qty: 1 on 05/14/2023 by Caroline Hatfield D.O. at [facility] Shwrüm/SquareClock Sacral Nerve Stimulator N/A: Back [employer] 01/22/2024 4101 / [id number] / Kt Piper Ld Str Crv Stylt Snm - [id number] - [id number] Implanted:Qty: 1 on 05/14/2023 by Caroline Hatfield D.O. at [facility] Shwrüm/[employer] Sacral Nerve Stimulator N/A: Back Axonics Modulation [employer] 10/04/2025 1201 / [id number] / Prgrmr Pt Rem Ctrl Snm - [id number] - [id number] Implanted:Qty: 1 on 05/14/2023 by Caroline Hatfield D.Thomas. at [facility] Shwrüm/S[employer]Clock Sacral Nerve Stimulator N/A: Back [employer]onics Modulation [employer] 05/22/2033 2301 / [id number] / Procedures Procedure Name Priority Date/Time Associated Diagnosis Comments C. DIFFICILE TOXIN PCR, F Routine 09/07/2023 9:09 AM CDT Diarrhea CREATININE WITH EGFR, S/P Routine 06/12/2023 9:37 AM CAN VACUUM TESTER Ileitis Crohn's (HCC) BASIC METABOLIC PANEL, S/P Routine 05/01/2023 2:55 PM CAN VACUUM TESTER Preanesthetic Medical Exam COLONOSCOPY Routine 05/15/2022 10:57 AM CAN VACUUM TESTER Crohn's Disease (HCC) Infection Urinary Tract Recurrent BI BREAST SCREENING BILATERAL Routine 03/04/2014 1:57 PM CDT from Last 3 Months or Most Recently Relevant to Health Maintenance Results * (ABNORMAL) Clostridioides (Clostridium) Difficile Toxin, Molecular Detection, PCR, Feces (09/07/2023 9:09 AM CDT) C. difficile Toxin, F Positive( A) Negative 09/07/2023 10:50 AM CDT DTL Semi-Urgent This is a semi-urge nt result([facility] ) [facility] Stool (Stool) 09/07/2023 9:0 9 AM CDT 09/07/2023 9:51 AM CDT Narrative Resulting Agency Comment Unable to Determine Date and Time of Collection Erica Nguyen M.D. LAB MICROBIOLOGY - GENERAL ORDERABLES [facility] [address] [place] [address], [facility] DTL [facility] [address] [place] [address] * Creatinine with Estimated GFR (06/12/2023 9:37 AM CAN VACUUM TESTER) Creatinine 0.90 0.59 - 1.04 mg/dL 06/12/2023 11:03 AM CAN VACUUM TESTER DTL Estimated GFR (eGFR) 70 >=60 mL/min/BSA 06/12/2023 11:03 AM CAN VACUUM TESTER DTL Comment: Estimated GFR calculated using the 2020 CKD_EPI creatinine equation. Blood (Blood, Venous) 06/12/2023 9:37 AM CAN VACUUM TESTER 06/12/2023 10:22 AM CAN VACUUM TESTER Gali Porter M.D. LAB BLOOD ADD-ON [facility] [address] [place] [address], [facility] DTL [facility] [address] [place] [address] * (ABNORMAL) Basic Metabolic Panel (05/01/2023 2:55 PM CAN VACUUM TESTER) Potassium, S 4.1 3.6 - 5.2 mmol/L 05/01/2023 3:48 PM CAN VACUUM TESTER DTL Sodium, S 140 135 - 145 mmol/L 05/01/2023 3:48 PM CAN VACUUM TESTER DTL Chloride, S 104 98 - 107 mmol/L 05/01/2023 3:48 PM CAN VACUUM TESTER DTL Bicarbonate, S 24 22 - 29 mmol/L 05/01/2023 3:48 PM CAN VACUUM TESTER DTL Anion Gap 12 7 - 15 05/01/2023 3:48 PM CAN VACUUM TESTER DTL BUN (Blood Urea Nitrogen), S 15 6 - 21 mg/dL 05/01/2023 3:48 PM CAN VACUUM TESTER DTL Creatinine 1.14(H) 0.59 - 1.04 mg/dL 05/01/2023 3:48 PM CAN VACUUM TESTER DTL Estimated GFR (eGFR) 52(L) >=60 mL/min/BSA 05/01/2023 3:48 PM CAN VACUUM TESTER DTL Comment: Estimated GFR calculated using the 2020 CKD_EPI creatinine equation. Calcium, Total, S 9.1 8.8 - 10.2 mg/dL 05/01/2023 3:48 PM CAN VACUUM TESTER DTL Glucose, S 137 70 - 140 mg/dL 05/01/2023 3:48 PM CAN VACUUM TESTER DTL Blood (Blood, Venous) 05/01/2023 2:55 PM CAN VACUUM TESTER 05/01/2023 3:27 PM CAN VACUUM TESTER Benita Barber APRN, C.N.P., M.S.N. LA B BLOOD ADD-ON [facility] [address] [place] [address], [facility] DTL [facility] [address] [place] [address] * BI Breast Screening Bilateral (03/04/2014 1:57 [...] her of the results. Jesus Pisano M.D. rtf/sisi:03/07/2014 11:00:58 letter sent: 1S/2S - Negative Screen Mammogram BI-RADS: 1 Negative Electronically signed by: Lizett Pisano MD [id number] 07-Mar-2014 11:02 Historical Provider IMG BI PROCEDURES from Last 3 Months or Most Recently Relevant to Health Maintenance Care Teams Lifter Relationship Specialty Start Date End Date Elsewhere, Pcp PCP - General Internal Medicine 05/02/23
--- OUTSIDE RECORDS SUMMARY | 2023-10-08 07:11 | XMS_ITS | Clinical Summary ---
Author Name Unknown Organization [employer] [facility] Address [place], [place] [address] Care Team Providers Care Computer Applications Engineer Name Role Phone Hansa Doty MD Primary Care Provider [phone] Allergies Active Allergy Reactions Criticality Noted Date Comments Codeine *Unknown 09/18/2016 Hydrochlorothiazide Rash 09/18/2016 Adalimumab Rash 09/18/2016 Medications Medication Sig Dispensed Refills Start Date End Date Status aspirin (ASPIRIN EC) 81 mg enteric coated tabletIndications:C rohn's disease of small intestine without complication (HC),Diarrhea, unspecified type,Periumbilical abdominal pain Take 1 tablet by mouth once daily with a meal. 0 09/18/2016 Active Phenol (CASTELLANI PAINT) 1.5 % liqdIndications:Habilitation Specialist hn's disease of small intestine without complication (HC),Diarrhea, unspecified type,Periumbilical abdominal pain Apply topically to affected area(s). 0 09/18/2016 Active Prednicarbate (DERMATOP) 0.1 % topical creamIndications:Cr ohn's disease of small intestine without complication (HC),Diarrhea, unspecified type,Periumbilical abdominal pain Apply topically to affected area(s) 2 times daily. 0 09/18/2016 Active calcipotriene 0.005% (DOVONEX) 0.005 % creamIndications:Cr ohn's disease of small intestine without complication (HC),Diarrhea, unspecified type,Periumbilical abdominal pain Apply topically to affected area(s) 2 times daily. 0 09/18/2016 Active furosemide (LASIX) 20 mg tabletIndications:C rohn's disease of small intestine without complication (HC),Diarrhea, unspecified type,Periumbilical abdominal pain Take 1 tablet by mouth every morning. 0 09/18/2016 Active lisinopril (PRINIVIL; ZESTRIL) 40 mg tabletIndications:C rohn's disease of small intestine without complication (HC),Diarrhea, unspecified type,Periumbilical abdominal pain Take 1 tablet by mouth once daily. 0 09/18/2016 Active omega-3 acid ethyl esters (LOVAZA) 1 gram capsuleIndications: Crohn's disease of small intestine without complication (HC),Diarrhea, unspecified type,Periumbilical abdominal pain Take 2 capsules by mouth 2 times daily. 0 09/18/2016 Active melatonin 5 mg capsuleIndications: Crohn's disease of small intestine without complication (HC),Diarrhea, unspecified type,Periumbilical abdominal pain Take 1 capsule by mouth. 0 09/18/2016 Active omeprazole (PRILOSEC) 40 mg Delayed-Release capsuleIndications: Crohn's disease of small intestine without complication (HC),Diarrhea, unspecified type,Periumbilical abdominal pain Take 1 capsule by mouth once daily. 0 09/18/2016 Active Prednicarbate (DERMATOP) 0.1 % topical creamIndications:Cr ohn's disease of small intestine without complication (HC),Diarrhea, unspecified type,Periumbilical abdominal pain Apply topically to affected area(s) 2 times daily. 0 09/18/2016 Active inFLIXimab (REMICADE) 100 mg injectionIndication s:Crohn's disease of small intestine without complication (HC),Diarrhea, unspecified type,Periumbilical abdominal pain Inject intravenous one time for 1 dose. 0 09/18/2016 Active simvastatin (ZOCOR) 40 mg tabletIndications:C rohn's disease of small intestine without complication (HC),Diarrhea, unspecified type,Periumbilical abdominal pain Take 1 tablet by mouth at bedtime. 0 09/18/2016 Active triamcinolone (ARISTOCORT; KENALOG) 0.1 % creamIndications:Cr ohn's disease of small intestine without complication (HC),Diarrhea, unspecified type,Periumbilical abdominal pain Apply topically to affected area(s) 3 times daily. 1 Tube 09/18/2016 Active acetaminophen (TYLENOL EXTRA STRGTH) 500 mg tabletIndications:C rohn's disease of small intestine without complication (HC),Diarrhea, unspecified type,Periumbilical abdominal pain Take 1 tablet by mouth every 6 hours if needed. Max acetaminophen dose: 4000mg in 24 hrs. 0 09/18/2016 Active cyanocobalamin (VITAMIN B-12) 1,000 mcg tabletIndications:C rohn's disease of small intestine without complication (HC),Diarrhea, unspecified type,Periumbilical abdominal pain Take 1 tablet by mouth once daily. 0 09/18/2016 Active Atld-Iiffarnil-Xhfh william-Aldiox (ZEASORB) powdIndications:Habilitation Specialist hn's disease of small intestine without complication (HC),Diarrhea, unspecified type,Periumbilical abdominal pain Apply topically to affected area(s). 0 09/18/2016 Active sertraline (ZOLOFT) 100 mg tabletIndications:C rohn's disease of small intestine without complication (HC),Diarrhea, unspecified type,Periumbilical abdominal pain Take 1 tablet by mouth once daily. 0 09/18/2016 Active sertraline (ZOLOFT) 50 mg tabletIndications:C rohn's disease of small intestine without complication (HC),Diarrhea, unspecified type,Periumbilical abdominal pain Take 1 tablet by mouth once daily. 0 09/18/2016 Active triamcinolone (ARISTOCORT; KENALOG) 0.1 % creamIndications:Ps oriasis Apply topically to affected area(s) 3 times daily. 80 g 5 05/20/2017 Active cholecalciferol (VITAMIN D3) 5,000 unit capsule Daily Active oxybutynin XL (DITROPAN XL) 5 mg CR tabletIndications:U rinary incontinence, unspecified type Take 1 Tablet (5 mg) by mouth once daily. 30 Tablet 11 06/25/2021 Active Active Problems Problem Noted Date Diagnosed Date Crohn's disease of small intestine without compl ication 09/18/2016 Diarrhea 09/18/2016 Encounters Date Type Department Care Team Description 09/09/[address] [facility] Scanner 1 scan: (1-Ord) [facility], LAB RESULTS, 09/09/2023 08/05/[address] [facility] Scanner 1 scan: (1-Ord) [facility], INFLIXIMAB ACT, 08/05/2023 from Last 3 Months Social History Tobacco Use Types Packs/Day Years Used Date Smoking Tobacco: Former Smokeless Tobacco: Never Tobacco Cessation:Counseling Given: Yes Alcohol Use Standard Drinks/Week Comments Yes 0 (1 standard drink = 0.6 oz pur e alcohol) occassional Social Connections Answer Date Recorded Frequency of Communication with Friends and Fami ly Not on file 06/23/2021 Alcohol Use Answer Date Recorded How often do you have a drink containing alcohol ? 1 06/25/2021 How many drinks containing a lcohol do you have on a typical day when you are drinking? 0 06/25/2021 How often do you have five or more drinks on one occasion? 0 06/25/2021 Financial Resource Strain Answer Date R ecorded Difficulty of Paying Living Expenses Not on file 06/23/2021 Difficulty of Paying Living Expenses Not on file 06/23/2021 Sex and Gender Information Value Date Recorded Sex Assigned at Not on file Gender Identity Not on file Sexual Orientation Not on file Obstetrics History Last Filed Vital Signs Vital Sign Reading Time Taken Comments Blood Pressure 136/63 12/05/2021 1:46 PM CDT Pulse 68 12/05/2021 1:46 PM CDT Temperature 37.1 ??C (98.8 ??F) 09/18/2016 3:20 PM CD T Respiratory Rate 18 06/25/2021 11:15 AM BALE COVERER Oxygen Saturation 96% 12/05/2021 1:46 PM CDT Inhaled Oxygen Concentration - - Weight 99.2 kg (218 lb 9.6 oz) 12/05/2021 1:46 P M CDT Height 166.4 cm (5' 5.51) 09/18/2016 3:20 PM CD T Body Mass Index 35.81 09/18/2016 3:20 PM CDT Plan of Treatment Health Maintenance Due Date Last Done Comments Tdap 1965 Depression screening for age 12+ 1966 Hepatitis C screening for ag e 18-79 1972 Zoster (shingles) series for age 50+ (1 of 2) 1973 Tetanus booster 1974 Lipids for age 45-75 10/19/1999 Mammogram for age 45-75 03/04/2015 03/04/2014 BMI (ht and wt on same day) for age 18+ 09/18/2017 09/18/2016 DEXA/DXA scan for age 65+ 10/19/2019 Medicare Wellness for age 65+ 10/19/2019 Pneumococcal series for age 65+ (1 of 1 - PCV) 10/19/2019 COVID-19 vaccine series (5 - 2022-24 season) 2023 07/23/2021, 02/19/2021, 09/07/2020, Additional history exists Influenza for age 65+ 02/22/2024 Colonoscopy through age 75 05/15/2032 05/15/2022, Procedures Procedure Name Priority Date/Time Associated Diagnosis Comments SCAN-LABORATORY REPORT 09/09/2023 12:00 AM CDT SCAN-LABORATORY REPORT 08/05/2023 12:00 AM BALE COVERER SCAN-COLONOSCOPY 05/15/2022 12:0 0 AM BALE COVERER SCAN-MAMMOGRAPHY REPORT 03/04/2014 12:00 AM CDT from Last 3 Months or Most Recently Relevant to Health Maintenance Results * SCAN-LABORATORY REPORT (09/09/2023 12:00 AM CDT) Only the most recent of2 resultswithin the time period is included. Scanner OTHER * SCAN-COLONOSCOPY (05/15/2022 12:00 AM BALE COVERER) Scanner OTHER * SCAN-MAMMOGRAPHY REPORT (03/04/2014 12:00 AM CDT) Anatomical Region Laterality Modality Other Scanner OTHER from Last 3 Months or Most Recently Relevant to Health Maintenance Care Teams Computer Applications Engineer Relationship Specialty Start Date End Date Hansa Doty MD [address] [place] [address] PCP - General Internal Medicine 07/15/16
--- OUTSIDE RECORDS SUMMARY | 2023-10-08 07:11 | XMS_ITS | Encounter Summary ---
Author Name Unknown Organization [facility] Address [address] [place] [address] Care Team Providers Care Early Head Start Teacher Name Role Phone Elsewhere, Pcp Primary Care Provider Unavailabl e Reason for Visit * Reason Onset Date Comments IFX trough/C diff 07/01/2023 Encounter Details Date Type Department Care Team (Latest Contact Info) Description 07/01/2023 Clinical Communication Division of Gastroenterology in [place], [place] [address] [place] [address] Erica Nguyen M.D. [address] [place] [id number] IFX trough/C diff Social History Tobacco Use Types Packs/Day Years [...] any clubs o r organizations such as mandaeism groups, unions, fraternal or [...] and heating? Not hard at all 07/10/2022 [facility] - Occupational Stress [...] or slept in a usp (including now)? No 07/10/2022 Nutrition Answer Date [...] as of this encounter Visit Diagnoses Diagnosis Crohn's Disease (HCC)- Primary documented in this encounter Care Teams Early Head Start Teacher Relationship Specialty Start Date End Date Elsewhere, Pcp PCP - General Internal Medicine 05/02/23 documented as of this encounter
--- OUTSIDE RECORDS SUMMARY | 2023-10-08 07:11 | XMS_ITS | Encounter Summary ---
Author Name Unknown Organization [facility] Address [address] [place] [address] Care Team Providers Care Alley Tender Name Role Phone Elsewhere, Pcp Primary Care Provider Unavailabl e Encounter Details Date Type Department Care Team (Latest Contact Info) Description 09/02/2023 9:50 AM CDT - 09/02/2023 11:59 PM CDT Hospital Encounter Department of Laboratory Medicine and Pathology, [facility] in [place], [place] [address] [place] [address] Erica Nguyen M.D. [address] [place] [phone] Diarrhea Discharge Disposition: Home or Self Care Social History Tobacco Use Types Packs/Day Years [...] How often do you attend chur or confucianism services? Patient declined 07/10/2022 Do you belong to any clubs o r organizations such as hinduism groups, unions, fraCystinosis Research Foundation or athletic groups, or school groups? Yes [...] and heating? Not hard at all 07/10/2022 [facility] - Occupational [...] or slept in a longterm (including now)? No 07/10/2022 Nutrition Answer Date [...] Refills Start Date End Date acetaminophen (TYLENOL) 500 mg tablet Take 500 mg by mouth as needed. 09/18/2016 acetaminophen (TYLENOL) 500 mg tablet Take 1 tablet (500 mg total) by mouth every 6 (six) hours as needed for pain. 05/02/[address] tablet Take 1 tablet (81 mg total) by mouth daily. Please restart 24 hours after your surgery on 05/14/23. 05/14/2023 cholecalciferol (VITAMIN D3) 125 mcg (5,000 Unit) capsule daily. clindamycin (Cleocin T) 1 % lotionIndications :Furunculosis Apply 1 application topically daily. Apply to boil. 60 mL 3 02/08/2022 estradioL (ESTRACE) 0.1 mg/g (0.01%) vaginal cream as needed. 05/07/2022 furosemide (LASIX) 20 mg tablet Take 20 mg by mouth daily. 12/14/2021 hydrocortisone 2.5 % ointmentIndicatio ns:Dermatitis Asteatotic Xerotic Apply 1 application topically 2 (two) times a day. Apply to rash. 454 g 3 02/08/2022 inFLIXimab (REMICADE) 10 mg/mL injectionIndicati ons:Crohn's Disease (HCC) Infuse 10mg/kg every 4-5 weeks. Premedicate with acetaminophen 650 mg PO, diphenhydramine 25 mg PO, and methylprednisolone 40 mg IV. 1 each 11 07/03/2023 krill oil 500 mg capsule Take by mouth. lisinopriL (PRINIVIL,ZESTRIL ) 40 mg tablet daily. 09/12/2022 melatonin 5 mg tablet Take 1 tablet by mouth at bedtime as needed. TAKING 10MG DAILY 01/21/2013 metroNIDAZOLE (METROCREAM) 0.75 % creamIndications: Other Rosacea Apply 1 application topically 2 (two) times a day. Apply to face for rosacea. 45 g 3 09/13/2022 omeprazole (PriLOSEC) [address] capsule Take 40 mg by mouth daily. 12/14/2021 sertraline (ZOLOFT) 100 mg tablet Take 1 tablet by mouth every morning. 04/17/2012 sertraline (ZOLOFT) 50 mg tablet Take 1 tablet by mouth every morning. 04/17/2012 simvastatin (ZOCOR) 40 mg tablet Take 40 mg by mouth daily. 12/14/2021 triamcinolone (KENALOG) 0.1 % creamIndications: Dermatitis Asteatotic Xerotic Apply 1 application topically 2 (two) times a day as needed for Rash under wet wraps. 454 g 06/19/2023 vancomycin (VANCOCIN) 125 mg capsuleIndication s:Diarrhea Take 1 capsule (125 mg total) by mouth 4 (four) times a day for 14 days. 56 capsule 09/08/2023 09/22/2023 documented as of this encounter Plan of Treatment Not on file documented as of this encounter Procedures Procedure Name Priority Date/Time Associated Diagnosis Comments C. DIFFICILE TOXIN PCR, F Routine 09/07/2023 9:09 AM CDT Diarrhea documented in this encounter Results * (ABNORMAL) Clostridioides (Clostridium) Difficile Toxin, Molecular Detection, PCR, Feces (09/07/2023 9:09 AM CDT) C. difficile Toxin, F Positive( A) Negative 09/07/2023 10:50 AM CDT DTL Semi-Urgent This is a semi-urge nt result([place] ) [facility] Stool (Stool) 09/07/2023 9:0 9 AM CDT 09/07/2023 9:51 AM CDT Narrative Resulting Agency Comment Unable to Determine Date and Time of Collection Erica Nguyen M.D. LAB MICROBIOLOGY - GENERAL ORDERABLES [facility] [address] [place] [address], [facility] DTL [facility] [address] [place] [address] documented in this encounter Visit Diagnoses Diagnosis Diarrhea documented in this encounter Care Teams Alley Tender Relationship Specialty Start Date End Date Elsewhere, Pcp PCP - General Internal Medicine 05/02/23 documented as of this encounter
--- OUTSIDE RECORDS SUMMARY | 2023-10-08 07:12 | XMS_ITS | Continuity of Care Document ---
Author Name Unknown Organization [facility] Address [address] [address] [place] [address] Phone Care Team Providers Care Explosive Ordnance Specialist Name Role Phone Unavailable Unavailable Unavailable Allergies, [...] Diagnoses Date Provider Providers Copied on Encounter [facility], [address] [address], [place], [id number], [place] tel:[phone] [facility] No Information 7 No Information Offic/outpt E&m Estab Low-mod [facility], [address] [address], [place], [id number], [place] tel:[phone] [facility] Crohn's Ileitis 7 No Information Referring Provider: Louann Hawthorne, [address] [facility], [place], [address]. tel:[phone] [facility], [address] [address], [place], [id number], [place] tel:[phone] [facility] No Information 7 No Information Offic/outpt E&m Estab Mod-hi 2 [facility], [address] [address], [place], [id number], [place] tel:[phone] [facility] Crohn's Ileitis 7 No Information Referring Provider: Louann Hawthorne, [address], [place], [address]. tel:[phone] [facility], [address] [address], [place], [id number], [place] tel:[phone] [facility] Crohn's Ileitis 7 No Information Referring Provider: Louann Hawthorne, [address], [place], [address]. tel:[phone] [facility], [address] [address], [place], [id number], [place] tel:[phone] [facility] Crohn's Ileitis 7 No Information Referring Provider: Louann Morocho MD [place], [address] [facility] [address], [place], [address]. tel:[phone] Offic/outpt E&m Estab Mod-hi 2 [facility], [address] [address], [place], [id number], [place] tel:[phone] [facility] Crohn's Ileitis 8200 7 No Information Referring Provider: Louann Hawthorne, [address] [facility] [address], [place], [address]. tel:[phone] Offic/outpt E&m Estab Low-mod [facility], [address] [address], [place], [id number], [place] tel:[phone] [facility] Crohn's IleitisDiarrheaA bdominal Pain, Unspecified 3200 7 No Information Referring Provider: Louann Hawthorne, [address] [facility], [place], [address]. tel:[phone] [facility], [address] [address], [place], [id number], [place] tel:[phone] [facility] Colon Cancer ScreeningHemorrh oids Nos 6 No Information Referring Provider: Louann Hawthorne, [address] [facility], [place], [address]. tel:[phone] Offic/outpt E m Estab Low [facility], [address] [address], [place], [id number], [place] tel:[phone] [facility] Crohn's small/large intestine 8200 6 No Information Referring Provider: Louann Hawthorne, [address] [facility] [facility], [place], [address]. tel:[phone] [facility], [address] [address], [place], [id number], [place] tel:[phone] [facility] Sep-0 5200 6 No Information Referring Provider: Louann Hawthorne, [address] [facility] [address], [place], [address]. tel:[phone] Family History Family Member Type Diagnosis Age [...] asthma Payers Payer name Insurance type Covered green party ID Authoriza tion(s) No Information Social History [...]
== END 2023-10-06 17:52 | disposition home or self-care (01) ==
LOC: NFLDREF 10-08 07:08
PROVIDERS: PCP Internal Medicine; Referring Provider Internal Medicine; Visit Provider Physician Assistant
DX: R30.0 Dysuria (principal); N39.0 Urinary tract infection, site not specified
CPT/HCPCS: 87086; 87186

== ENCOUNTER 2023-10-15 10:22 | Outpatient (CLI) | payer MEDICARE, BC, SELFPAY ==
--- NOTE | 2023-10-15 10:15 | MM_ITS ---
Patient: SUZIE DE LA GARZA Facility:?[facility] Patient ID:?[id number] Site Patient ID:?[id number]. Site :?[id number] Study:?XRay-Breast Bilateral 3D W/CAD-10/15/2023 11:11:44 AM Ordering Physician:Hansa Mujica Final Report: BILATERAL SCREENING MAMMOGRAM WITH COMPUTER-AIDED DETECTION AND TOMOSYNTHESIS TECHNIQUE: CC and MLO views were obtained. These mammographic images have been obtained using full-field digital technique. These mammographic images were interpreted with the benefit of computer-aided detection. Breast Tomosynthesis was used in this interpretation. COMPARISON FILM: 08/01/22, 07/09/21, 07/07/20. FINDINGS: The breasts are almost entirely fatty. IMPRESSION: There is no radiographic evidence for malignancy. ASSESSMENT: BI-RADS Category 1: Negative RECOMMENDATION: Routine screening mammogram in 1 year. A lay language report of this examination will be provided to the patient. Zachary Dueñas M.D. Diagnostic Radiologist [email or web address] DSM/sp R& Transcribed: 6:55 p.m. SP/Dictated by: Zachary Dueñas MD @ 10/16/2023 1:35:00 PM Signed by:?Zachary Dueñas MD @10/17/2023 11:26:38 AM (Electronic Signature)
--- OUTSIDE RECORDS SUMMARY | 2023-10-15 10:25 | XMS_ITS | Clinical Summary ---
Author Name Unknown Organization [facility] Address [address] [place] [address] Care Team Providers Care Quality Review Specialist Name Role Phone Elsewhere, Pcp Primary Care Provider Unavailabl e Source Comments Patient records contain information from all sites at [facility]. For routine questions regarding patient records, call [phone] during business hours, M-F 8:00 AM - 5:00 PM Central Time. 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 09/11/2023 Clinical Communication Division of Gastroenterology in [address] [phone] Erica Nguyen M.D. Med Question 09/02/2023 9:50 AM CDT - 09/02/2023 11:59 PM CDT Hospital Encounter Department of Laboratory Medicine and Pathology, [facility], in [place], [place] [address] [place] [phone] Erica Nguyen M.D. Diarrhea Discharge Disposition: Home or Self Care 08/29/2023 Clinical Communication Division of Gastroenterology in [place], [place] [address] [place] [phone] Erica Nguyen M.D. Inflammatory Bowel Disease (C.Diff Testing) 08/18/2023 Orders Only Division of Gastroenterology in [place], [place] [address] [place] [phone] Rahul Fam M.D. Genetic Susceptibility To Disease [...] How often do you attend chur or gnosticism services? Patient declined 07/10/2022 Do you belong [...] and heating? Not hard at all 07/10/2022 [facility] of Occupat ional Health - Occupational Stress [...] or slept in a snf (including now)? No 07/10/2022 Nutrition Answer Date [...] Comments Blood Pressure 129/67 05/14/2023 1:30 PM CONTINGENTS SUPERVISOR Pulse 69 05/14/2023 1:35 PM CONTINGENTS SUPERVISOR Temperature 36.7 ??C (98.1 ??F) 05/14/2023 12:[address] Respiratory Rate 21 05/14/2023 1:35 PM CONTINGENTS SUPERVISOR Oxygen Saturation 91% 05/14/2023 1:35 PM CONTINGENTS SUPERVISOR Inhaled Oxygen Concentration - - Weight 101 kg (223 lb 5.2 oz) 05/14/2023 9:12 AM CONTINGENTS SUPERVISOR Height 167 cm (5' 5.75) 05/01/2023 3:48 PM CONTINGENTS SUPERVISOR Body Mass Index 36.32 05/01/2023 3:48 PM CONTINGENTS SUPERVISOR Plan of Treatment Upcoming Encounters Date Type Department Care Team (Latest Contact Info) Description 12/05/2023 10:45 AM CDT Clinical Communication Virtual Review in [place], [place] 200 [place] [address] 12/09/2023 8:50 AM CDT Appointment Department of Laboratory Medicine and Pathology, [facility], in [place], [place] [address] [place] [phone] Caroline Hatfield D.O. [address] [place] [phone] 12/09/2023 11:00 AM CDT Procedure visit Department of Urology in [address] [phone] Caroline Hatfield D.O. [address] [place] [phone] 12/09/2023 3:00 PM CDT Office Visit Department of Urology in [place], [place] [address] [place] [phone] Caroline Hatfield D.O. [address] [place] [phone] Health Maintenance Due Date Last Done Comments Bone Density Scan (Osteoporosis Screen) 1954 CT Colonography 1954 Cologuard 1955 Hepatitis C Screening 1954 Lipid (Cholesterol) Screening 1955 Mammogram 03/23/2016 03/23/2015 (Perf ormed elsewhere), 03/04/2014, 01/14/2013, Additional history exists COVID-19 Vaccine ( season) 2023 04/03/2023, 12/11/2022, 04/17/2022, Additional history exists Depression Screening (Annual PHQ-2) [...] Completed 03/17/2023, , 04/11/2021, Additional history exists HPV Vaccines Aged Out No longer eligi ble based on patient's age to complete this topic Medical Devices Implanted Type Area Building Services Technician Device Identifier Shelf Expiration Date Model / Serial / Lot Hardware E.G. Pins/Screws/Lloyd s Hardware e.g. pins/screws/r ods Scalp Tarpley-Screw 1.5x 4mm - Muñiz [id number] Implanted:Qty: 3 on 04/20/2012 Hardware e.g. pins/screws/r ods Nevaeh Description:Device Manufactu rer - Tarpley Florina.. Device Status Text - [id number]. Tarpley-Mesh 90x90x.6mm(Gold ) - Muñiz [id number] Implanted:Qty: 1 on 04/20/2012 Hardware e.g. pins/screws/r ods Tarpley Description:Device Manufactu rer - Tarpley Florina.. Device Status Text - [id number]. Knee Implant- 6 Implanted:11/21 (Quantity not on file) Knee Implant Left: Knee Knee Implant- 6 Implanted:11/21 (Quantity not on file) Knee Implant Right: Knee Talmage Richard Fuzzy 1 X 1 - Muñiz [id number] Implanted:Qty: 1 on 04/20/2012 Mesh or Patch MICMALI Description:Device Manufactu [employer]. Device Status Text - [id number]-1667. [facility] Data - [id number]. Gen Nrstm F15 6.2z00x46 - [id number] - [id number] Implanted:Qty: 1 on 05/14/2023 by Caroline Hatfield D.O. at [facility] Nguyen/Zinio Sacral Nerve Stimulator N/A: Back [employer] Inc 01/22/2024 4101 / [id number] / Kt Piper Ld Str Crv Stylt [facility] - [id number] - [id number] Implanted:Qty: 1 on 05/14/2023 by Caroline Hatfield D.OElvis at [facility] Nguyen/Zinio Sacral Nerve Stimulator N/A: Back [employer] 10/04/2025 1201 / [id number] / Prgrmr Pt Rem Ctrl Sn - [id number] - [id number] Implanted:Qty: 1 on 05/14/2023 by Caroline Hatfield D.O. at [facility] Nguyen/Zinio Sacral Nerve Stimulator N/A: Back [employer] 05/22/2033 2301 / [id number] / Procedures Procedure Name Priority Date/Time Associated Diagnosis Comments C. DIFFICILE TOXIN PCR, F Routine 09/07/2023 9:09 AM CDT Diarrhea CREATININE WITH EGFR, S/P Routine 06/12/2023 9:37 AM CONTINGENTS SUPERVISOR Ileitis Crohn's (HCC) BASIC METABOLIC PANEL, S/P Routine 05/01/2023 2:55 PM CONTINGENTS SUPERVISOR Preanesthetic Medical Exam COLONOSCOPY Routine 05/15/2022 10:57 AM CONTINGENTS SUPERVISOR Crohn's Disease (HCC) Infection Urinary Tract Recurrent BI BREAST SCREENING BILATERAL Routine 03/04/2014 1:57 PM CDT from Last 3 Months or Most Recently Relevant to Health Maintenance Results * (ABNORMAL) Clostridioides (Clostridium) Difficile Toxin, Molecular Detection, PCR, Feces (09/07/2023 9:09 AM CDT) C. difficile Toxin, F Positive( A) Negative 09/07/2023 10:50 AM CDT DTL Semi-Urgent This is a semi-urge nt result([place] ) [facility] Stool (Stool) 09/07/2023 9:0 9 AM CDT 09/07/2023 9:51 AM CDT Narrative Resulting Agency Comment Unable to Determine Date and Time of Collection Erica Nguyen M.D. LAB MICROBIOLOGY - GENERAL ORDERABLES [facility] [address] [place] [address], [facility] DTL [facility] [address] [place] [address] * Creatinine with Estimated GFR (06/12/2023 9:37 AM CONTINGENTS SUPERVISOR) Creatinine 0.90 0.59 - 1.04 mg/dL 06/12/2023 11:03 AM CONTINGENTS SUPERVISOR DTL Estimated GFR (eGFR) 70 >=60 mL/min/BSA 06/12/2023 11:03 AM CONTINGENTS SUPERVISOR DTL Comment: Estimated GFR calculated using the 2020 CKD_EPI creatinine equation. Blood (Blood, Venous) 06/12/2023 9:37 AM CONTINGENTS SUPERVISOR 06/12/2023 10:22 AM CONTINGENTS SUPERVISOR Gali Porter M.D. LAB BLOOD ADD-ON [facility] [address] [place] [address], [facility] DTL [facility] [address] [place] [address] * (ABNORMAL) Basic Metabolic Panel (05/01/2023 2:55 PM CONTINGENTS SUPERVISOR) Pathologist [facility] Potassium, S 4.1 3.6 - 5.2 mmol/L 05/01/2023 3:48 PM CONTINGENTS SUPERVISOR DTL Sodium, S 140 135 - 145 mmol/L 05/01/2023 3:48 PM CONTINGENTS SUPERVISOR DTL Chloride, S 104 98 - 107 mmol/L 05/01/2023 3:48 PM CONTINGENTS SUPERVISOR DTL Bicarbonate, S 24 22 - 29 mmol/L 05/01/2023 3:48 PM CONTINGENTS SUPERVISOR DTL Anion Gap 12 7 - 15 05/01/2023 3:48 PM CONTINGENTS SUPERVISOR DTL BUN (Blood Urea Nitrogen), S 15 6 - 21 mg/dL 05/01/2023 3:48 PM CONTINGENTS SUPERVISOR DTL Creatinine 1.14(H) 0.59 - 1.04 mg/dL 05/01/2023 3:48 PM CONTINGENTS SUPERVISOR DTL Estimated GFR (eGFR) 52(L) >=60 mL/min/BSA 05/01/2023 3:48 PM CONTINGENTS SUPERVISOR DTL Comment: Estimated GFR calculated using the 2020 CKD_EPI creatinine equation. Calcium, Total, S 9.1 8.8 - 10.2 mg/dL 05/01/2023 3:48 PM CONTINGENTS SUPERVISOR DTL Glucose, S 137 70 - 140 mg/dL 05/01/2023 3:48 PM CONTINGENTS SUPERVISOR DTL Blood (Blood, Venous) 05/01/2023 2:55 PM CONTINGENTS SUPERVISOR 05/01/2023 3:27 PM CONTINGENTS SUPERVISOR Benita Barber APRN, C.N.P., M.S.N. LA B BLOOD ADD-ON [facility] [address] [place] [address], [place] DTL [facility] [address] [place] [address] * BI Breast Screening Bilateral (03/04/2014 1:57 [...] Recently Relevant to Health Maintenance Care Teams Quality Review Specialist Relationship Specialty Start Date End Date Elsewhere, Pcp PCP - General Internal Medicine 05/02/23
--- OUTSIDE RECORDS SUMMARY | 2023-10-15 10:26 | XMS_ITS | Data Portability ---
Author Name Unknown Address [address] [place] [address] Phone [phone] Organization [facility], [facility] Address [address] [place] [address] Care Team Providers Care Joiner Name Role Phone ANN GALVAN Primary Care [...] Not available 10:43:34 culture, urine 2021 022 [facility] [place] [facility], [address] [address], [place], [address], 09:11:35 urinalysis , dipstick 2021 022 Not available 10:55:24 Referral None recorded. Procedures None recorded. Surgeries None recorded. Imaging None recorded. Medication Orders Myrbetriq 50 mg tablet,ext ended release 2021 022 [facility], [address], [place], [address], 10:55:24 Patient TargetsNo targets recorded. Patient Instructions Encounter Date Encounter Id Patient Instructions Last Modified By Organization Details Last Modified Time 10/30/2021 [id number] Patient was give n Keflex 500mg Patient is to take 2 cap 2 X per day for 3 days. [email or web address] Not available 10/30/2021 10:46:20 Reason for Referral None Reported. Results Created Date Observation Date Name Description Value Unit Range Abnormal Flag LastModifiedBy Organization Detail LastModifiedTime 10/25/19 22 10/24/2021 urina lysis , dipst ick Color-Status Yellow Not Available [facility] [address], [place], [address], 10/24/2021 10:25:23 10/25/19 22 10/24/2021 urina lysis , dipst ick Clarity-Stat us Clear Not Available [facility] [address], [place], [address], 10/24/2021 10:25:23 10/31/19 22 10/30/2021 URINE CULTU RE final report microb iology result s abnormal Not Available [facility] [address], [place], [address], 11/01/2021 09:11:34 10/31/19 22 10/30/2021 urina lysis , dipst ick Color-Status Straw Not Available [facility] [address], [place], [address], 10/30/2021 10:42:01 10/31/19 22 10/30/2021 urina lysis , dipst ick Clarity-Stat us Slight ly Cloudy Not Available [facility] [address], [place], [address], 10/30/2021 10:42:01 10/31/19 22 10/30/2021 urina lysis , dipst ick Glucose-Stat us Negati ve Not Available [facility] [address], [place], [address], 10/30/2021 10:42:01 10/31/19 22 10/30/2021 urina lysis , dipst ick Bilirubin-St atus Negati ve Not Available [facility] [address], [place], [address], 10/30/2021 10:42:01 10/31/19 22 10/30/2021 urina lysis , dipst ick Ketones-Stat us Negati ve Not Available [facility] [address], [place], [address], 10/30/2021 10:42:01 10/31/19 22 10/30/2021 urina lysis , dipst ick Nitrates-Sta tus positi ve Not Available [facility] [address], [place], [address], 10/30/2021 10:42:01 10/31/19 22 10/30/2021 urina lysis , dipst ick Blood-Status Trace Not Available [facility] [address], [place], [address], 10/30/2021 10:42:01 10/31/19 22 10/30/2021 urina lysis , dipst ick Leuko-Status Small Not Available [facility] [address], [place], [address], 10/30/2021 10:42:01 07/02/19 22 06/25/2021 measu remen [...] Time 2 Bladder Scan completed Sylvia tamez [facility] 10/24/2021 10:25:41 3 colonoscopy completed Clay Hernandez MD [address] [place] [address],[address], [address], [facility] 10/24/2021 10:39:41 8 insertion of single incision mid-urethral mini-sling completed Clay Hernandez MD [address] [place] [address],[address], [address], [facility] 10/24/2021 10:41:56 total knee replacement completed Clay Hernandez MD [address] [place] [address],[address], [address], [facility] 10/24/2021 10:39:16 Imaging Results Imaging Date Name [...] Name and Address Organization Details Recorded Time [id number] codeine medicatio n Not available Not available Not available 10/24/2021 [facility] 10:28:53 [id number] hydrochlo rothiazid e medicatio n rash Not available Not available 10/24/2021 5[facility] 10:29:06 263164 Humira medicatio n rash Not available Not available 10/24/2021 88382 4 RxNorm Poly mumab Sylvia Senior [facility] 2 10:29:38 Medications Name Sig Start Date [...] Updated DateTime 10/24/2021 165.1 cm 36.4 kg/m2 71062.73 g Clay Hernandez MD [address] [place] [address],[address], [place], [address], [facility] 10/24/2021 10:35:09 Social History Question Answer Notes LastModified by Organizat ion Details LastModified Time Tobacco Smoking Status Former Smoker Sylvia Senior [facility], [facility] 10/24/2021 10:26:38 What Is Your Level [...] o Information not available 10/24/2021 Preferred Language Setswana Information not available 10/24/2021 Number Of Pregnancies [...] Has Tobacco Cessation Counseling Been Provided? Yes [place] [id number] Information not available 10/24/2021 On What Date Was Tobacco Cessation Counseling Provided? [facility]/24/2021 [facility] not available 10/24/2021 Do You Or Have You Ever Used Any Other Forms Of Tobacco Or Nicotine? No [facility] Information not available 10/24/2021 Sex: Female [...] history of Hypertension Medical History Condition Response Diabetes N Other Y Bleeding Disorder N High Blood Pressure Y Kidney Stones N Cancer N Lung Disease N Depression Y High Cholesterol Y GERD/Acid Reflux Y Heart Disease Y Gynecological History Statement/Question Response If Post Menopausal, Age at Menopause 52 Leaking urine with intercourse N Sexually Active? Y Pain with intercourse N Obstetrics History GPAL:G 3 P 0 0 0 3 Type Value Living 3 Total 3 Past Encounters Encounter ID Performer Location Encounter Start Date Encounter Closed Date Diagnosis/Indication Diagnosis SNOMED-CT Code [id number] MD BUD [facility] [address] [place] [id number] 10/24/2021 10:11:07 10/31/2021 12:54:44 Mixed urinary incontinence [id number] MD Kb Perez [address] [place] [address] 10/30/2021 10:01:41 11/02/2021 13:12:22 Urinary tract infectious disease [id number] Health Concerns Section Related Observation LastModified by Organization Detai ls LastModified Time None Recorded Concern Status LastModified by Organization Details LastModified Time None Recorded Advance Directives Directive None Recorded Payers Encounter Date Sequence Insurance Name Policy Number Policy Randall Covered Member ID Randall Member ID Guarantor Name 10/30/2021 1 [place] [employer] Brittaney H Roland [id number] 1 Brittaney H Roland 10/30/2021 2 [place] [id number] Brittaney H Roland [id number] Brittaney H Roland 10/24/2021 1 [place] [facility] Brittaney H Roland [id number] 1 Brittaney H Roland 10/24/2021 2 [place] [facility] [place] ([place]IC[place]PP[place] [id number] Brittaney H Roland [id number] Brittaney H Roland Notes Date Note Type [...] PVR = 125 mL Clay Hernandez MD [address] [place] [address],[address], [place], [address], [place] - [facility] 10/27/2021 13:23:02 OBGyn Episode No OBEpisode recorded.
--- OUTSIDE RECORDS SUMMARY | 2023-10-15 10:26 | XMS_ITS | Encounter Summary ---
Author Name Unknown Organization [facility] Address [address] [place] [address] Care Team Providers Care Automotive Design Drafter Name Role Phone Elsewhere, Pcp Primary Care Provider Unavailabl e Reason for Visit * Reason Onset Date Comments Med Question 09/11/2023 Encounter Details Date Type Department Care Team (Latest Contact Info) Description 09/11/2023 Clinical Communication Division of Gastroenterology in [place], [place] [address] [place] [address] Erica Nguyen M.D. [address] [place] [address] Med Question Social History Tobacco Use Types [...] How often do you attend chur or latter-day services? Patient declined 07/10/2022 Do you belong to any clubs o r organizations such as evangelical groups, unions, fraternal or [...] and heating? Not hard at all 07/10/2022 [facility] of Occupat ional Health - Occupational [...] or slept in a retirement (including now)? No 07/10/2022 Nutrition Answer Date [...] AM CDT Clinical Communication Virtual Review in [place] [address] [place] [address] 12/09/2023 8:50 AM CDT Appointment Department of Laboratory Medicine and Pathology, [facility], in [place], [place] [address] [place] [address] Caroline Hatfield D.O. [address] [place] [phone] 12/09/2023 11:00 AM CDT Procedure visit Department of Urology in [place], [place] [address] [place] [address] Caroline Hatfield D.O. [address] [place] [address] 12/09/2023 3:00 PM CDT Office Visit Department of Urology in [place], [place] [address] [place] [address] Caroline Hatfield D.O. [address] [place] [phone] documented as of this encounter Visit Diagnoses Not on filedocumented in this encounter Care Teams Automotive Design Drafter Relationship Specialty Start Date End Date Elsewhere, Pcp PCP - General Internal Medicine 05/02/23 documented as of this encounter
--- OUTSIDE RECORDS SUMMARY | 2023-10-15 10:26 | XMS_ITS | Encounter Summary ---
Author Name Unknown Organization [facility] Address [address] [place] [address] Care Team Providers Care Senior Financial Reporting Accountant Name Role Phone Elsewhere, Pcp Primary Care Provider Unavailabl e Reason for Referral * Outpatient (Routine) - Authorized Specialty Diagnoses / Procedures Referred By Contac t Referred To Contact Diagnoses Incontinence Urinary Retention Urinary Urgency Urinary Frequency Urinary Procedures URO Uroflow Caroline Hatfield D.O. 200 [place] [address] [facility] Referral ID Status Reason Start Date Expiration Date V isits Requested Visits Authorized [id number] Authorized 10/06/2023 10/05/2024 1 1 * Outpatient (Routine) - Authorized Specialty Diagnoses / Procedures Referred By Contac t Referred To Contact Urology Caroline Hatfield D.O. [address] [place] [phone] Caroline Hatfield D.O. 200 [place] [address] Referral ID Status Reason Start Date Expiration Date V isits Requested Visits Authorized [id number] Authorized 10/06/2023 04/06/2025 1 1 Encounter Details Date Type Department Care Team (Late st Contact Info) Description 10/06/2023 Clinical Communication Department of Urology in [place], [place] 200 [place] [address] Caroline Hatfield D.O. 200 [place] [address] Social History Tobacco Use Types Packs/Day Years [...] often do you attend chur ch or anabaptism services? Patient declined 07/10/2022 Do you belong to any clubs o r organizations such as tenriism groups, unions, fraternal or [...] and heating? Not hard at all 07/10/2022 [facility] [place] of Occupat ional Health - Occupational Stress [...] or slept in a intermediate (including now)? No 07/10/2022 Nutrition Answer Date [...] Notes * Addendum Note - Kasey Celis RElvisN. - 10/06/2023 2:58 PM CDTAddended by: KASEY [...] AM CDT Clinical Communication Virtual Review in [place], [place] 200 [place] [address] 12/09/2023 8:50 AM CDT Appointment Department of Laboratory Medicine and Pathology, [facility], in [place], [place] [address] [place] [phone] Caroline Hatfield D.O. [address] [place] [address] [place] [address] 12/09/2023 11:00 AM CDT Procedure visit Department of Urology in [place], [place] [address] [place] [address] Caroline Hatfield D.O. 200 [place] [address] 12/09/2023 3:00 PM CDT Office Visit Department of Urology in [place], [place] [address] [place] [address] Caroline Hatfield D.O. 200 [place] [address] Scheduled Orders Name Type Priority Associated Diagnoses [...] Urinary documented in this encounter Care Teams Senior Financial Reporting Accountant Relationship Specialty Start Date End Date Elsewhere, Pcp PCP - General Internal Medicine 05/02/23 documented as of this encounter
--- OUTSIDE RECORDS SUMMARY | 2023-10-15 10:26 | XMS_ITS ---
Author Name Unknown Organization [facility] Address [address] [place] [address] Care Team Providers Care Squaring Shear Operator Name Role Phone Unavailable Unavailable Unavailable Surgery Details Not on file Complications Check Surgery Details section. Procedure Estimated Blood Loss Check Surgery Details section. Procedure Findings Check Surgery Details section. Procedure Specimens Taken Check Surgery Details section.
--- OUTSIDE RECORDS SUMMARY | 2023-10-15 10:26 | XMS_ITS | Encounter Summary ---
Author Name Unknown Organization [facility] Address [address] [place] [address] Care Team Providers Care Mechanical Engineering Officer Name Role Phone Elsewhere, Pcp Primary Care Provider Unavailabl e Encounter Details Date Type Department Care Team (Late st Contact Info) Description 08/18/2023 Orders Only Division of Gastroenterology in [place], [place] [address] [place] [phone] Rahul Fam M.D. [address] [place] [address] Genetic Susceptibility To Disease Social History Tobacco [...] week 07/10/2022 How often do you attend [facility] or pentecostal services? Patient declined 07/10/2022 Do you belong to any clubs o r organizations such as yazidi groups, unions, fraternal or [...] and heating? Not hard at all 07/10/2022 [facility] of Occupat ional Health - Occupational [...] AM CDT Clinical Communication Virtual Review in [place], [place] [address] [place] [address] 12/09/2023 8:50 AM CDT Appointment Department of Laboratory Medicine and Pathology, [facility], in [place], [place] [address] [place] [address] Caroline Hatfield D.O. [address] [place] [phone] 12/09/2023 11:00 AM CDT Procedure visit Department of Urology in [place], [place] [address] [place] [address] Caroline Hatfield D.O. [address] [place] [phone] 12/09/2023 3:00 PM CDT Office Visit Department of Urology in [place], [place] [address] [place] [address] Caroline Hatfield D.O. [address] [place] [phone] documented as of this encounter Procedures Procedure [...] enriched using a custom set of reagents (iNeoMarketing+ chemistry). Targeted regions were sequenced using an Illumina DNA sequencing system. Your sequence was matched to a modified version of the industry standard reference genome (GRCh38). Variant calling was completed using a customized version of [employer]'s [employer]) software, requiring 20x coverage for validated variant calls. Copy Number Variants (CNVs) were called using a proprietary bioinformatics pipeline that compared the coverage profile of your sample with the coverage profiles of other reference set samples. [facility] then analyzed the generated variant data for the exons and 10 bp of flanking intronic sequence (and select tagged intronic variants) of the 11 genes included in Hum from the Groopt Database. Your sample was reviewed for single [...] and medical management. 12/31/2022 12:00 AM CDT [facility] Human Reference Sequence Assembly GRCh38 12/31/2022 12:00 AM [facility] Saliva (Mouth) 11/26/2022 Rahul Fam M.D. LAB GENETI C TESTING [place] [address] [facility], [address] [place] [address], [facility] ZAK [place] [address] [facility], [address]. 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
--- OUTSIDE RECORDS SUMMARY | 2023-10-15 10:26 | XMS_ITS | Referral Summary ---
Author Name Unknown Organization [facility] Address [address] [place] [address] Care Team Providers Care Balance Clerk Name Role Phone Elsewhere, Pcp Primary Care Provider Unavailabl e Source Comments Patient records contain information from all sites at [facility]. For routine questions regarding patient records, call [phone] during business hours, M-F 8:00 AM - 5:00 PM Central Time. Record requests for emergency care only can be directed to [phone] at any time.[facility] Encounters Date Type Department Care Team Description 10/06/2023 Clinical Communication Department of Urology in [place], [place] [address] [place] [address] Caroline Hatfield D.O. 09/11/2023 Clinical Communication Division of Gastroenterology in [place], [place] [address] [place] [address] Erica Nguyen M.D. Med Question 09/02/2023 9:50 AM CDT - 09/02/2023 11:59 PM CDT Hospital Encounter Department of Laboratory Medicine and Pathology, [facility], in [place], [place] [address] [place] [address] Erica Nguyen M.D. Diarrhea Discharge Disposition: Home or Self Care 08/29/2023 Clinical Communication Division of Gastroenterology in [place], [place] [address] [place] [address] Erica Nguyen M.D. Inflammatory Bowel Disease (C.Diff Testing) 08/18/2023 Orders Only Division of Gastroenterology in [place], [place] [address] [place] [address] Rahul Fam M.D. Genetic Susceptibility To Disease [...] Disease 11/07/2009 Atherosclerotic Heart Diseas e Of [place] Coronary Artery Without Angina Pectoris 07/17/2009 Fatty [...] How often do you attend chur or buddhism services? Patient declined 07/10/2022 Do you belong to any clubs o r organizations such as yazidism groups, unions, fraternal or [...] and heating? Not hard at all 07/10/2022 [facility] of Occupat ional Health - Occupational Stress [...] Comments Blood Pressure 129/67 05/14/2023 1:30 PM HOUSECALLS NURSE Pulse 69 05/14/2023 1:35 PM HOUSECALLS NURSE Temperature 36.7 ??C (98.1 ??F) 05/14/2023 12:[address] Respiratory Rate 21 05/14/2023 1:35 PM HOUSECALLS NURSE Oxygen Saturation 91% 05/14/2023 1:35 PM HOUSECALLS NURSE Inhaled Oxygen Concentration - - Weight 101 kg (223 lb 5.2 oz) 05/14/2023 9:12 AM HOUSECALLS NURSE Height 167 cm (5' 5.75) 05/01/2023 3:48 PM HOUSECALLS NURSE Body Mass Index 36.32 05/01/2023 3:48 PM HOUSECALLS NURSE Plan of Treatment Upcoming Encounters Date Type Department Care Team (Latest Contact Info) Description 12/05/2023 10:45 AM CDT Clinical Communication Virtual Review in [place], [place] 200 [place] [phone] 12/09/2023 8:50 AM CDT Appointment Department of Laboratory Medicine and Pathology, [facility], in [place], [place] [address] [place] [phone] Caroline Hatfield D.O. [address] [place] [phone] 12/09/2023 11:00 AM CDT Procedure visit Department of Urology in [place], [place] [address] [place] [address] Caroline Hatfield D.O. [address] [place] [address] 12/09/2023 3:00 PM CDT Office Visit Department of Urology in [place], [place] [address] [place] [address] Caroline Hatfield D.O. [address] [place] [phone] Medical Devices Implanted Type Area Chain Link Fence Installer Device Identifier Shelf Expiration Date Model / Serial / Lot Hardware E.G. Pins/Screws/Lloyd s Hardware e.g. pins/screws/r ods Scalp [place]-Screw 1.5x 4mm - [id number] [id number] Implanted:Qty: 3 on 04/20/2012 Hardware e.g. pins/screws/r ods Nevaeh Description:Device Manufactu rer - Nevaeh Florina.. Device Status Text - [id number]. [place]-Mesh 90x90x.6mm(Gold ) - Muñiz [id number] Implanted:Qty: 1 on 04/20/2012 Hardware e.g. pins/screws/r ods [place] Description:Device Manufactu rer - Nevaeh Florina.. Device Status Text - [id number]. Knee Implant- 6 Implanted:11/21 (Quantity not on file) Knee Implant Left: Knee Knee Implant- 6 Implanted:11/21 (Quantity not on file) Knee Implant Right: Knee Pine Apple Richard Fuzzy 1 X 1 - Muñiz [id number] Implanted:Qty: 1 on 04/20/2012 Mesh or Patch tagWALLET Description:Device Manufactu Vital Juice Newsletter. Device Status Text - [id number]. [facility] Data - [id number]. Gen [facility] F15 6.4o31m68 - [id number] - [id number] Implanted:Qty: 1 on 05/14/2023 by Caroline Hatfield D.O. at [facility] Nguyen/Smartfielda Sacral Nerve Stimulator N/A: Back [employer] 01/22/2024 4101 / [id number] / Kt Piper Ld Str Crv Stylt Snm - [id number] - [id number] Implanted:Qty: 1 on 05/14/2023 by Caroline Hatfield D.O. at [facility] Nguyen/Smartfielda Sacral Nerve Stimulator N/A: Back [employer] 10/04/2025 1201 / [id number] / Prgrmr Pt Rem Ctrl Snm - [id number] - [id number] Implanted:Qty: 1 on 05/14/2023 by Caroline Hatfield D.O. at [facility] Nguyen/Smartfielda Sacral Nerve Stimulator N/A: Back [employer] 05/22/2033 2301 / [id number] / Procedures Procedure Name Priority Date/Time Associated Diagnosis Comments C. DIFFICILE TOXIN PCR, F Routine 09/07/2023 9:09 AM CDT Diarrhea CREATININE WITH EGFR, S/P Routine 06/12/2023 9:37 AM HOUSECALLS NURSE Ileitis Crohn's (HCC) BASIC METABOLIC PANEL, S/P Routine 05/01/2023 2:55 PM HOUSECALLS NURSE Preanesthetic Medical Exam COLONOSCOPY Routine 05/15/2022 10:57 AM HOUSECALLS NURSE Crohn's Disease (HCC) Infection Urinary Tract Recurrent BI BREAST SCREENING BILATERAL Routine 03/04/2014 1:57 PM CDT from Last 3 Months or Most Recently Relevant to Health Maintenance Results * (ABNORMAL) Clostridioides (Clostridium) Difficile Toxin, Molecular Detection, PCR, Feces (09/07/2023 9:09 AM CDT) C. difficile Toxin, F Positive( A) Negative 09/07/2023 10:50 AM CDT DTL Semi-Urgent This is a semi-urge nt result([place] ) [facility] Stool (Stool) 09/07/2023 9:0 9 AM CDT 09/07/2023 9:51 AM CDT Narrative Resulting Agency Comment Unable to Determine Date and Time of Collection Erica Nguyen M.D. LAB MICROBIOLOGY - GENERAL ORDERABLES Performing Organization Address City/[facility]/ZIP Co de Phone Number [facility] [address] [place] [address], [facility] [place] 200 [place] [address] * Creatinine with Estimated GFR (06/12/2023 9:37 AM HOUSECALLS NURSE) Creatinine 0.90 0.59 - 1.04 mg/dL 06/12/2023 11:03 AM HOUSECALLS NURSE DTL Estimated GFR (eGFR) 70 >=60 mL/min/BSA 06/12/2023 11:03 AM HOUSECALLS NURSE DTL Comment: Estimated GFR calculated using the 2020 CKD_EPI creatinine equation. Blood (Blood, Venous) 06/12/2023 9:37 AM HOUSECALLS NURSE 06/12/2023 10:22 AM HOUSECALLS NURSE Gali Porter M.D. LAB BLOOD ADD-ON [facility] 200 [place] [address], [facility] 200 [place] [address] * (ABNORMAL) Basic Metabolic Panel (05/01/2023 2:55 PM HOUSECALLS NURSE) Potassium, S 4.1 3.6 - 5.2 mmol/L 05/01/2023 3:48 PM HOUSECALLS NURSE DTL Sodium, S 140 135 - 145 mmol/L 05/01/2023 3:48 PM HOUSECALLS NURSE DTL Chloride, S 104 98 - 107 mmol/L 05/01/2023 3:48 PM HOUSECALLS NURSE DTL Bicarbonate, S 24 22 - 29 mmol/L 05/01/2023 3:48 PM HOUSECALLS NURSE DTL Anion Gap 12 7 - 15 05/01/2023 3:48 PM HOUSECALLS NURSE DTL BUN (Blood Urea Nitrogen), S 15 6 - 21 mg/dL 05/01/2023 3:48 PM HOUSECALLS NURSE DTL Creatinine 1.14(H) 0.59 - 1.04 mg/dL 05/01/2023 3:48 PM HOUSECALLS NURSE DTL Estimated GFR (eGFR) 52(L) >=60 mL/min/BSA 05/01/2023 3:48 PM HOUSECALLS NURSE DTL Comment: Estimated GFR calculated using the 2020 CKD_EPI creatinine equation. Calcium, Total, S 9.1 8.8 - 10.2 mg/dL 05/01/2023 3:48 PM HOUSECALLS NURSE DTL Glucose, S 137 70 - 140 mg/dL 05/01/2023 3:48 PM HOUSECALLS NURSE DTL Blood (Blood, Venous) 05/01/2023 2:55 PM HOUSECALLS NURSE 05/01/2023 3:27 PM HOUSECALLS NURSE Benita Barber APRN C.N.P., M.S.N. LA B BLOOD ADD-ON [facility] [address] [place] [address], [facility] [address] [address] * BI Breast Screening Bilateral (03/04/2014 1:57 [...] 07-Mar-2014 11:02 Narrative 03/07/2014 11:02 AM CDT 12-Sep-2014 13:57:00 ??Exam: Mammo Screen Bilat Indications: Screening [...] Negative Electronically signed by: Lizett Pisano MD [id number] 07-Mar-2014 11:02 Historical Provider IMG BI PROCEDURES from Last 3 Months or Most Recently Relevant to Health Maintenance Care Teams Balance Clerk Relationship Specialty Start Date End Date Elsewhere, Pcp PCP - General Internal Medicine 05/02/23
--- OUTSIDE RECORDS SUMMARY | 2023-10-15 10:26 | XMS_ITS | Encounter Summary ---
Author Name Unknown Organization [facility] Address [address] [place] [address] Care Team Providers Care Law Office Receptionist Name Role Phone Elsewhere, Pcp Primary Care Provider Unavailabl e Encounter Details Date Type Department Care Team (Late st Contact Info) Description 03/02/2015 Historical Ophthalmology [facility] Cayetano Chand M.D., Ph.D. [address] [place] [address] Social History Tobacco Use Types Packs/Day Years [...] On February 01, 2015, she saw her cell tester, Dr. Liu for evaluation of this. She [...] gland dysfunction CDM Reports - EYEGEN Id: [id number] Status: Fnl documented in this encounter Plan of Treatment Upcoming Encounters Date Type Department Care Team (Latest Contact Info) Description 12/05/2023 10:45 AM CDT Clinical Communication Virtual Review in [place], [place] 200 [place] [address] 12/09/2023 8:50 AM CDT Appointment Department of Laboratory Medicine and Pathology, [facility], in [address] [phone] Caroline Hatfield D.OElvis [address] [place] [phone] 12/09/2023 11:00 AM CDT Procedure visit Department of Urology in [address] [phone] Caroline Hatfield D.O. [address] [place] [phone] 12/09/2023 3:00 PM CDT Office Visit Department of Urology in [address] [phone] Caroline Hatfield D.OElvis [address] [place] [phone] documented as of this encounter Visit Diagnoses Not on filedocumented in this encounter Care Teams Law Office Receptionist Relationship Specialty Start Date End Date Elsewhere, Pcp PCP - General Internal Medicine 05/02/23 documented as of this encounter
--- OUTSIDE RECORDS SUMMARY | 2023-10-15 10:26 | XMS_ITS | Encounter Summary ---
Author Name Unknown Organization [facility] Address [address] [place] [address] Care Team Providers Care Martial Arts Instructor Name Role Phone Elsewhere, Pcp Primary Care Provider Unavailabl e Encounter Details Date Type Department Care Team (Latest Contact Info) Description 09/02/2023 9:50 AM CDT - 09/02/2023 11:59 PM CDT Hospital Encounter Department of Laboratory Medicine and Pathology, [facility] in [place], [place] [address] [place] [address] Erica Nguyen M.D. [address] [place] [phone] Diarrhea Discharge Disposition: Home or Self Care [...] How often do you attend chur or latter day services? Patient declined 07/10/2022 Do you belong to any clubs o r organizations such as mandaen groups, unions, fraAsthmatracker or athletic groups, or school groups? Yes [...] and heating? Not hard at all 07/10/2022 [facility] of Occupat ional Health - Occupational Stress [...] AM CDT Clinical Communication Virtual Review in [place], [place] 200 [place] [address] 12/09/2023 8:50 AM CDT Appointment Department of Laboratory Medicine and Pathology, [facility], in [place], [place] [address] [place] [phone] Caroline Hatfield D.O. [address] [place] [phone] 12/09/2023 11:00 AM CDT Procedure visit Department of Urology in [place], [place] [address] [place] [phone] Caroline Hatfield D.O. [address] [place] [phone] 12/09/2023 3:00 PM CDT Office Visit Department of Urology in [address] [phone] Caroline Hatfield D.O. [address] [place] [phone] documented as of this encounter Procedures Procedure [...] GENERAL ORDERABLES [facility] [address] [place] [address], [facility] 200 [place] [address] documented in this encounter Visit Diagnoses Diagnosis Diarrhea documented in this encounter Care Teams Martial Arts Instructor Relationship Specialty Start Date End Date Elsewhere, Pcp PCP - General Internal Medicine 05/02/23 documented as of this encounter
--- OUTSIDE RECORDS SUMMARY | 2023-10-15 10:26 | XMS_ITS | Encounter Summary ---
Author Name Unknown Organization [facility] Address [address] [place] [address] Care Team Providers Care Reserve Operator Name Role Phone Elsewhere, Pcp Primary Care Provider Unavailabl e Reason for Visit * Reason Onset Date Comments IFX trough/C diff 07/01/2023 Encounter Details Date Type Department Care Team (Latest Contact Info) Description 07/01/2023 Clinical Communication Division of Gastroenterology in [place], [place] [address] [place] [address] Erica Nguyen M.D. [address] [place] [phone] IFX trough/C diff Social History Tobacco Use [...] How often do you attend chur or pentecostalism services? Patient declined 07/10/2022 Do you belong to any clubs o r organizations such as yarsanism groups, unions, fraternal or [...] and heating? Not hard at all 07/10/2022 [facility] of Occupat ional Health - Occupational [...] or slept in a mcc (including now)? No 07/10/2022 Nutrition Answer Date [...] AM CDT Clinical Communication Virtual Review in [place], [place] [address] [place] [address] 12/09/2023 8:50 AM CDT Appointment Department of Laboratory Medicine and Pathology, [facility], in [place], [place] [address] [place] [address] Caroline Hatfield D.O. [address] [place] [phone] 12/09/2023 11:00 AM CDT Procedure visit Department of Urology in [place], [place] [address] [place] [phone] Caroline Hatfield D.O. [address] [place] [phone] 12/09/2023 3:00 PM CDT Office Visit Department of Urology in [place], [place] [address] [place] [address] Caroline Hatfield D.O. [address] [place] [phone] documented as of this encounter Visit Diagnoses Diagnosis Crohn's Disease (HCC)- Primary documented in this encounter Care Teams Reserve Operator Relationship Specialty Start Date End Date Elsewhere, Pcp PCP - General Internal Medicine 05/02/23 documented as of this encounter
--- OUTSIDE RECORDS SUMMARY | 2023-10-15 10:26 | XMS_ITS | Encounter Summary ---
Author Name Unknown Organization [facility] Address [address] [place] [address] Care Team Providers Care Tiger Machine Operator Name Role Phone Elsewhere, Pcp Primary Care Provider Unavailabl e Reason for Visit * Reason Onset Date Comments Inflammatory Bowel Disease 08/29/2023 C.Dif f Testing Encounter Details Date Type Department Care Team (Latest Contact Info) Description 08/29/2023 Clinical Communication Division of Gastroenterology in [place], [place] [address] [place] [address] Erica Nguyen M.D. [address] [place] [phone] Inflammatory Bowel Disease (C.Diff Testing) Social History [...] How often do you attend chur or jainism services? Patient declined 07/10/2022 Do you belong to any clubs o r organizations such as hindu groups, unions, fraternal or [...] Information Discussed Returned call to Dorothy at [facility] (ph: [phone]) to discuss patient's upcoming infliximab infusion scheduled [...] used: nursing clinical judgement and provider Dr. Ngueyn documented in this encounter Plan of Treatment Upcoming Encounters Date Type Department Care Team (Latest Contact Info) Description 12/05/2023 10:45 AM CDT Clinical Communication Virtual Review in [place], [place] 200 [place] [address] 12/09/2023 8:50 AM CDT Appointment Department of Laboratory Medicine and Pathology, [facility] in [address] [phone] Caroline Hatfield D.O. [address] [place] [phone] 12/09/2023 11:00 AM CDT Procedure visit Department of Urology in [address] [phone] Caroline Hatfield D.O. [address] [place] [phone] 12/09/2023 3:00 PM CDT Office Visit Department of Urology in [address] [phone] Caroline Hatfield D.O. [address] [place] [phone] documented as of this encounter Results * [...] ORDERABLES [facility] [address] [place] [address], [facility] [address] [place] [address] documented in this encounter Visit Diagnoses Diagnosis Diarrhea- Primary documented in this encounter Care Teams Tiger Machine Operator Relationship Specialty Start Date End Date Elsewhere, Pcp PCP - General Internal Medicine 05/02/23 documented as of this encounter
--- OUTSIDE RECORDS SUMMARY | 2023-10-15 10:26 | XMS_ITS | Clinical Summary ---
Author Name Unknown Organization [facility] Address [place], [place] [address] Care Team Providers Care Audio Visual Design Engineer Name Role Phone Hansa Doty MD Primary Care Provider [phone] Allergies Active Allergy Reactions Criticality Noted Date [...] 09/18/2016 Active Phenol (CASTELLANI PAINT) 1.5 % liqdIndications:Township Clerk hn's disease of small intestine without complication [...] by mouth once daily. 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 [...] Department Care Team Description 09/09/2023 Orders Only [facility] Scanner 1 scan: (1-Ord) [facility], LAB RESULTS, 09/09/2023 08/05/2023 Orders Only [facility] Scanner 1 scan: (1-Ord) [facility], INFLIXIMAB ACT, 08/05/2023 from Last 3 Months [...] T Respiratory Rate 18 06/25/2021 11:15 AM COMMUNITY HEALTH DIRECTOR Oxygen Saturation 96% 12/05/2021 1:46 PM CDT [...] AM CDT SCAN-LABORATORY REPORT 08/05/2023 12:00 AM COMMUNITY HEALTH DIRECTOR SCAN-COLONOSCOPY 05/15/2022 12:0 0 AM COMMUNITY HEALTH DIRECTOR SCAN-MAMMOGRAPHY REPORT 03/04/2014 12:00 AM CDT from Last 3 Months or Most Recently Relevant to Health Maintenance Results * SCAN-LABORATORY REPORT (09/09/2023 12:00 AM CDT) Only the most recent of2 resultswithin the time period is included. Scanner OTHER * SCAN-COLONOSCOPY (05/15/2022 12:00 AM COMMUNITY HEALTH DIRECTOR) Scanner OTHER * SCAN-MAMMOGRAPHY REPORT (03/04/2014 12:00 AM CDT) Anatomical Region Laterality Modality Other Scanner OTHER from Last 3 Months or Most Recently Relevant to Health Maintenance Care Teams Audio Visual Design Engineer Relationship Specialty Start Date End Date Hansa Doty MD [address] [place] [address] PCP - General Internal Medicine 07/15/16
== END 2023-10-15 10:23 | disposition home or self-care (01) ==
LOC: MAMMO 10:24
PROVIDERS: PCP Internal Medicine; Visit Provider Internal Medicine
DX: Z12.31 Encounter for screening mammogram for malignant neoplasm of breast (principal)
CPT/HCPCS: 77063; 77067

== ENCOUNTER 2023-10-15 11:00 | Outpatient (RCR) | payer MEDICARE, BC, SELFPAY ==
[2023-04-23 11:27] VITALS: BP 127/60; PULSE 75; RESP 17; TEMP 36.3; O2SAT 95
[2023-04-23] MEDS: diphenhydrAMINE 25 MG CAPSULE PO (12:08)
[2023-04-23] MEDS: ACETAMINOPHEN 325 MG TABLET 650 MG PO (12:09)
[2023-04-23] MEDS: METHYLPREDNISOLONE SOD SUCC 40 MG/ML IVP (12:10)
[2023-05-28 11:07] VITALS: BP 115/63; PULSE 74; RESP 16; TEMP 35.8
[2023-05-28] MEDS: diphenhydrAMINE 25 MG CAPSULE PO (11:20)
[2023-05-28] MEDS: ACETAMINOPHEN 325 MG TABLET 650 MG PO (11:20)
[2023-05-28] MEDS: METHYLPREDNISOLONE SOD SUCC 40 MG/ML IVP (11:59)
[2023-05-28] MEDS: 0.9 % SODIUM CHLORIDE 250 ml 250 ML 35 ML IV (12:00)
--- NOTE | 2023-05-28 12:45 | ONC.NURNOTE ---
surg 2 weeks ago. bladder . states recovered. states did go to urgent care 10 days ago for congestion and just finished Augmentin. non productive cough today. states last fever 10 days ago. states diarrhea with Augmentin resolved. states ok for treatment per TI.
[2023-07-02 11:23] VITALS: BP 108/70; PULSE 85; RESP 16; TEMP 35.9; O2SAT 92
[2023-07-02] MEDS: ACETAMINOPHEN 325 MG TABLET 650 MG PO (11:51)
[2023-07-02] MEDS: diphenhydrAMINE 25 MG CAPSULE PO (11:52)
[2023-07-02] MEDS: METHYLPREDNISOLONE SOD SUCC 40 MG/ML IVP (11:54)
--- NOTE | 2023-07-08 15:28 | URNOTE ---
Prior authorization is not required for Infliximab ([id number]). Pt has medicare and BC supplement. Services are based on medical necessity and follow medicare guidelines
--- NOTE | 2023-07-10 09:32 | ONC.NURNOTE ---
Diagnosis: Crohn's Disease K50.90
[2023-08-05 11:35] VITALS: BP 125/81; PULSE 72; RESP 16; TEMP 35.8; O2SAT 94
[2023-08-05] MEDS: ACETAMINOPHEN 325 MG TABLET 650 MG PO (12:06)
[2023-08-05] MEDS: diphenhydrAMINE 25 MG CAPSULE PO (12:06)
[2023-08-05] MEDS: SODIUM CHLORIDE 0.9 % (FLUSH) 10 ML SYRINGE IVF (12:15)
[2023-08-05] MEDS: 0.9 % SODIUM CHLORIDE 250 ml 250 ML 35 ML IV (12:15)
[2023-08-05] MEDS: METHYLPREDNISOLONE SOD SUCC 40 MG/ML IVP (12:35)
--- NOTE | 2023-09-02 14:41 | ONC.NURNOTE ---
Foxer contacted patient to see if she is able to move from next Friday to this Friday d/t staffing. When discussing with patient, she notes that Dr. Nguyen is checking a c.diff on patient. Patient was informed that this drug is occasionally held with active infections. Foxer left message with Dr. Nguyen's office to find out if infliximab should be held until c.diff has been collected and resulted.
--- NOTE | 2023-09-03 12:41 | ONC.NURNOTE ---
Addendum entered by Brenda Santos RN 09/09/23 09:16: Pt left message stating she is positive for cdiff and started vancomycin on 09/08/23. Per pt, her GI physician would still like her to be treated with infliximab. Discussed with Vivienne Kwong APRN and pt okay to treat as long as she is afebrile and does not have worsening symptoms. Cupola Repairer called pt, she is afebrile, feels better, last stool was yesterday. Pt to come in at 1100 for infliximab, enhanced contact precautions will be initiated. Original Note: Called patient yesterday to see if able to move appointment up from next Friday to this Friday. She noted that she is being tested for c.dif by the GI, Dr. Nguyen. Cupola Repairer then called their office to see if it is okay to treat patient with infliximab if she is symptomatic of c.dif. Dr. Nguyen notes that patient should be treated as long as her symptoms are not worsening or she has a fever. Currently having about five stool daily, with about two of them being incontinent.
[2023-09-09 11:15] VITALS: BP 139/88; PULSE 73; RESP 18; TEMP 36.8; O2SAT 93
[2023-09-09] MEDS: ACETAMINOPHEN 325 MG TABLET 650 MG PO (12:06)
[2023-09-09] MEDS: diphenhydrAMINE 25 MG CAPSULE PO (12:07)
[2023-09-09] MEDS: METHYLPREDNISOLONE SOD SUCC 40 MG/ML IVP (12:13)
[2023-09-09] MEDS: TUBING PRIMARY IV (12:51)
[2023-09-09] MEDS: INFLIXIMAB IV (12:51)
[2023-09-09] MEDS: [UNRECOGNIZED DRUG - OTHER] IV (12:51)
[2023-09-09 13:13] LABS: Potassium* 3.4 mmol/L (3.6-5.1)
[2023-10-15 11:12] VITALS: BP 114/73; PULSE 76; RESP 16; TEMP 35.8; O2SAT 94
[2023-10-15] MEDS: ACETAMINOPHEN 325 MG TABLET 650 MG PO (11:23)
[2023-10-15] MEDS: diphenhydrAMINE 25 MG CAPSULE PO (11:23)
[2023-10-15] MEDS: METHYLPREDNISOLONE SOD SUCC 40 MG/ML IVP (12:05)
[2023-10-15] MEDS: TUBING PRIMARY IV (12:27)
[2023-10-15] MEDS: INFLIXIMAB IV (12:27)
[2023-10-15] MEDS: [UNRECOGNIZED DRUG - OTHER] IV (12:27)
== END 2023-10-20 23:59 | disposition home or self-care (01) ==
LOC: CCIC 11:00
PROVIDERS: PCP Internal Medicine; Referring Provider Internal Medicine; Visit Provider Internal Medicine Gastroenterology
DX: K50.90 Crohn's disease, unspecified, without complications (principal)
CPT/HCPCS: 36415; 80053; 80061; 80230; 84132; 96376; 96413; 96415; A9270; J2919; J2920; J7050

== ENCOUNTER 2023-10-22 20:09 | Emergency (ER) | payer MEDICARE, BC, SELFPAY ==
[2023-10-22 20:51] VITALS: BP 177/85; PULSE 79; RESP 20; TEMP 37.1; O2SAT 99; BMI 36.6
--- NOTE | 2023-10-22 21:22 | ED.GENADULT ---
HPI - General Adult General Chief complaint: GI Bleed Stated complaint: Blood in stool--treated for C diff in August Time Seen by Provider: 10/22/23 21:03 History of Present Illness HPI narrative: This 68-year-old female comes in reporting small amounts of blood with mucus and diarrhea a. She was diagnosed with Clostridium difficile infection last month and completed 14 days of vancomycin. She improved and then was away on vacation. Since then she has had a urinary tract infection and now reports recurrent symptoms very similar to the C diff infection that she had last month. She does not report any fevers. She states that she has had about 10 episodes of diarrhea today. She has a history of Crohn's disease but does not report any symptoms of flare up in this regard. Related Data Home Medications Medication Instructions Recorded Confirmed aspirin 81 mg tablet,delayed 81 mg PO QDAY 12/20/21 10/06/23 release infliximab 100 mg intravenous See Rx Instructions IV .every 4-5 12/20/21 10/06/23 solution (Remicade) weeks melatonin 10 mg capsule 10 mg PO QDAY 12/20/21 10/06/23 fluocinonide 0.05 % topical 1 applic topical QDAY PRN 01/10/22 10/06/23 ointment cholecalciferol (vitamin D3) 125 5,000 unit PO DAILY 02/05/22 10/06/23 mcg (5,000 unit) capsule cyclobenzaprine 5 mg tablet 5 mg PO Q8H PRN 02/05/22 10/06/23 hydrocortisone 2.5 % topical 1 applic topical BID PRN 02/05/22 10/06/23 ointment krill [id number] 1 cap PO DAILY 03/28/22 10/06/23 tacrolimus 0.1 % topical ointment 1 applic topical BID PRN 06/06/22 10/06/23 (Protopic) triamcinolone acetonide 0.1 % 1 applic topical QDAY PRN 06/06/22 10/06/23 topical cream clobetasol 0.05 % topical cream 1 applic topical BID PRN 09/24/22 10/06/23 metronidazole 0.75 % topical cream 1 applic topical BID PRN rosacea 09/24/22 10/06/23 (MetroCream) cranberry extract 250 mg capsule 250 mg PO QDAY 06/10/23 10/06/23 miconazole nitrate 2 % topical 1 applic topical QDAY 06/10/23 10/06/23 powder (Zeasorb AF) Previous Rx's Medication Instructions Recorded estradiol 0.01% (0.1 mg/gram) 1 g vaginal 2XW #42.5 grams 03/18/23 vaginal cream (Estrace) furosemide 20 mg tablet 20 mg PO QAM #90 tabs 06/10/23 lisinopril 40 mg tablet 40 mg PO DAILY #90 tabs 06/10/23 nystatin 100,000 unit/gram topical 1 applic topical TID #60 grams 06/10/23 powder sertraline 100 mg tablet (Zoloft) 100 mg PO QDAY #90 tabs 06/10/23 sertraline 50 mg tablet (Zoloft) 50 mg PO QDAY #90 tabs 06/10/23 simvastatin 40 mg tablet 40 mg PO QDAY #90 tabs 06/10/23 omeprazole 40 mg capsule,delayed 40 mg PO QDAY #90 caps 06/17/23 release vancomycin 125 mg capsule 125 mg PO QID #60 caps 10/22/23 (Vancocin) Allergies Allergy/AdvReac Type Severity Reaction Status Date / Time adalimumab [From Humira] Allergy Intermediate Rash Verified 10/22/23 20:54 hydrochlorothiazide Allergy Intermediate Rash Verified 10/22/23 20:54 codeine AdvReac Mild Nausea Verified 10/22/23 20:54 Review of Systems Status of ROS: Reports: 10 or more systems reviewed and unremarkable except as noted in History and below Narrative: Constitutional: No fevers, no weight gain or loss. Eyes: No discharge. No vision changes. HENT: No congestion, no sore throat, no ear pain. Cardiovascular: No chest pain, no palpitations. Respiratory: No shortness of breath, no wheezes, no cough. Gastrointestinal: No abdominal pain, no vomiting. Frequent diarrhea with mucus and some specks of blood. Genitourinary: No dysuria, no hematuria. Musculoskeletal: Normal range of motion. Skin: No rashes, no pruritis. Neurological: No dizziness, weakness, sensory change, speech change. Endo/Heme/Allergies: No bruising or bleeding. No polydipsia. Pysch: no suicidality, no anxiety, no insomnia. All other systems reviewed and are negative. [facility] Medical History History of gestational diabetes mellitus (GDM) (05/25/09) ?Z86.32 - Personal history of gestational diabetes (ICD-10) History of Clostridium difficile colitis (07/12/11) ?Z86.19 - Personal history of other infectious and parasitic diseases (ICD-10) Surgical History History of hysteroscopy ?Z98.890 - Other specified postprocedural states (ICD-10) History of suburethral sling procedure ?Z98.890 - Other specified postprocedural states (ICD-10) S/P ACL repair ?Z98.890 - Other specified postprocedural states (ICD-10) S/P placement of hypoglossal nerve stimulator (04/03/10) ?Z96.82 - Presence of neurostimulator (ICD-10) Trigeminal neuralgia (05/25/09) ?G50.0 - Trigeminal neuralgia (ICD-10) History of tubal ligation ?Z98.51 - Tubal ligation status (ICD-10) History of total knee replacement ?Z96.659 - Presence of unspecified artificial knee joint (ICD-10) Family History Mother Breast cancer Sister Breast cancer Social History Narrative: She is retired. She has a bachelor's degree. She exercises regularly. She does not smoke She has 2-4 drinks of alcohol a month She recently celebrated her 40th wedding anniversary. What is your current living situation?: I presently have a place to live Problems where you live: no known problems In the past 12 months, utilities in danger of being shut off: no In past 12 months, lack of transportation kept you from medical appts, meetings, work, or getting things needed for daily living: no In the past 12 mos, have been you worried that your food would run out before you had money to buy more?: never true In the past 12 mos, the food you bought just didn't last and you didn't have money to buy more?: never true Smoking Status: Former smoker How often do you have a drink containing alcohol: 2-4 times a month How often do you have six or more drinks on one occasion: Never AUDIT-C Alcohol total score: 2 Non-prescribed substance use: denies use Caffeine: Yes How often does anyone, including family, friends and others, physically hurt you: never How often does anyone, including family, friends and others, insult or talk down to you: rarely How often does anyone, including family, friends and others, threaten you with harm: never How often does anyone, including family, friends and others, scream or curse at you: decline to answer Little interest or pleasure in doing things: not at all Feeling down, depressed, or hopeless: not at all Are you using contraception or practicing any form of control: No Exam Narrative: Exam Narrative: Constitutional: Well-developed, well-nourished, no acute distress. HEENT: Normocephalic, atraumatic. Neck: Normal range of motion. Nontender. Supple. Heart: Regular. No murmurs. Normal rate. Intact distal pulses. Lungs: Clear to auscultation. No chest discomfort. No wheezes, rhonchi, or rales. Abdomen: Normal bowel sounds. Nontender. No rebound tenderness. Genitalia: Deferred. Back: No midline tenderness. Normal range of motion. Extremities: Normal range of motion. No injury. Skin: Intact. No rash. Warm. No erythema or pallor. Neurologic: No altered sensation. No weakness. Alert and oriented. Psychiatric: No suicidality. No anxiety or depression. No insomnia. Nursing notes and vitals signs are reviewed. Const: Vital Signs, click to edit/add: Vital Signs - 24 hr 10/22/23 20:51 Temperature 98.7 F Pulse Rate [Right Pulse Oximeter] 79 Respiratory Rate 20 Blood Pressure [Ri ght Upper Arm] 177/85 H Pulse Oximetry 99 Oxygen Delivery Me thod Room Air Course Vital Signs Vital signs: Initial Vital Signs Temperature 98.7 F 10/22/23 20:51 Temperature Source Temporal Artery Scan 10/22/23 20:51 Pulse Rate 79 10/22/23 20:51 Respiratory Rate 20 10/22/23 20:51 Blood Pressure 177/85 H 05/01/24 20:51 Blood Pressure Mean 115 H 10/22/23 20:51 Blood Pressure Position Sitting 10/22/23 20:51 Pulse Oximetry 99 10/22/23 20:51 Oxygen Delivery Method Room Air 10/22/23 20:51 Vital Signs Temperature 98.7 F 10/22/23 20:51 Pulse Rate 79 10/22/23 20:51 Respiratory Rate 20 10/22/23 20:51 Blood Pressure 177/85 H 10/22/23 20:51 Pulse Oximetry 99 10/22/23 20:51 Oxygen Delivery Method Room Air 10/22/23 20:51 Temperature 98.7 F 10/22/23 20:51 Pulse Rate 79 10/22/23 20:51 Respiratory Rate 20 10/22/23 20:51 Blood Pressure 177/85 H 10/22/23 20:51 Pulse Oximetry 99 10/22/23 20:51 Oxygen Delivery Method Room Air 10/22/23 20:51 Medical Decision Making MDM Narrative Medical decision making narrative: This patient comes in with recurrent symptoms of Clostridium difficile infection. Her symptoms are similar to that which she had when she was diagnosed about a month or more ago. She arrives with normal vital signs. She did submit a stool sample to her primary doctor in the [facility] [place] to evaluate for Clostridium difficile and results are pending. The patient did receive IV normal saline 1 L and labs are acquired. I also administered an oral tablet of vancomycin 125 mg. The patient has plans to follow-up with her GI doctor tomorrow. Lab results are pending at the end of my shift and will be attended to if they are significantly enough abnormal. She did received prescription for vancomycin. Discharge Plan Discharge Clinical Impression: C. difficile colitis Patient Disposition: Home, Self-Care Condition: Stable Additional Instructions: Take medication as prescribed. Follow up with primary physician tomorrow for ongoing management. Return if worsening. Prescriptions: New vancomycin [Vancocin] 125 mg capsule 125 mg PO QID Qty: 60 0RF No Action cholecalciferol (vitamin D3) 125 mcg (5,000 unit) capsule 5,000 unit PO DAILY cyclobenzaprine 5 mg tablet 5 mg PO Q8H PRN Rx Instructions: As needed for muscle spasm, caution as it is sedating hydrocortisone 2.5 % ointment 1 applic topical BID PRN Rx Instructions: Apply sparingly to involved areas of rash twice daily for 1-2 weeks then stop. tacrolimus [Protopic] 0.1 % ointment 1 applic topical BID PRN aspirin 81 mg tablet,delayed release (DR/EC) 81 mg PO QDAY Hold Instructions: pre procedure melatonin 10 mg capsule 10 mg PO QDAY infliximab [Remicade] 100 mg recon soln See Rx Instructions IV .every 4-5 weeks Rx Instructions: 10mg/ml intravenously EVERY 4-5 WEEKS; intravenously; fluocinonide 0.05 % ointment 1 applic topical QDAY PRN krill [id number]-epa 1 cap PO DAILY triamcinolone acetonide 0.1 % cream 1 applic topical QDAY PRN miconazole nitrate [Zeasorb AF] 2 % powder 1 applic topical QDAY cranberry extract 250 mg capsule 250 mg PO QDAY Rx Instructions: administer with a meal furosemide 20 mg tablet 20 mg PO QAM Qty: 90 3RF lisinopril 40 mg tablet 40 mg PO DAILY Qty: 90 3RF simvastatin 40 mg tablet 40 mg PO QDAY Qty: 90 3RF sertraline [Zoloft] 100 mg tablet 100 mg PO QDAY Qty: 90 3RF sertraline [Zoloft] 50 mg tablet 50 mg PO QDAY Qty: 90 3RF nystatin 100,000 unit/gram powder 1 applic topical TID Qty: 60 2RF clobetasol 0.05 % cream 1 applic topical BID PRN metronidazole [MetroCream] 0.75 % cream 1 applic topical BID PRN (Reason: rosacea ) estradiol [Estrace] 0.01 % (0.1 mg/gram) cream 1 g vaginal 2XW Qty: 42.5 11RF Hold Instructions: having vaginal bleeding & irritation Rx Instructions: use large dollop of cream, apply with fingers to hairless perineal skin 3 times weekly omeprazole 40 mg capsule,delayed release(DR/EC) 40 mg PO QDAY Qty: 90 3RF Follow Up/Referrals: Hansa Doty MD [Primary Care Provider] - Stand Alone Forms: [facility] Info Instructions
[2023-10-22] MEDS: 0.9 % SODIUM CHLORIDE 1000 ml 1,000 ML IV (21:40)
[2023-10-22] MEDS: VANCOMYCIN 125 MG CAPSULE PO (21:40)
--- OUTSIDE RECORDS SUMMARY | 2023-10-22 21:41 | XMS_ITS | Encounter Summary ---
Author Name Unknown Organization [facility] Address [address] [place] [address] Care Team Providers Care Stars Analytical Lead Name Role Phone Elsewhere, Pcp Primary Care Provider Unavailabl e Encounter Details Date Type Department Care Team (Late st Contact Info) Description 03/02/2015 Historical Ophthalmology [facility] Cayetano Chand M.D., Ph.D. [address] [place] [address] Social History Tobacco Use Types Packs/Day Years [...] On February 01, 2015, she saw her polisher and buffer, Dr. Liu for evaluation of this. She [...] gland dysfunction CDM Reports - EYEGEN Id: [id number] Status: Fnl documented in this encounter Plan of Treatment Upcoming Encounters Date Type Department Care Team (Latest Contact Info) Description 12/05/2023 10:45 AM CDT Clinical Communication Virtual Review in [place], [place] [address] [place] [address] 12/09/2023 8:50 AM CDT Appointment Department of Laboratory Medicine and Pathology, [facility], in [address] [phone] Caroline Hatfield D.OElvis [address] [place] [phone] 12/09/2023 11:00 AM CDT Procedure visit Department of Urology in [address] [phone] Caroline Hatfield D.O. [address] [place] [phone] 12/09/2023 3:00 PM CDT Office Visit Department of Urology in [address] [phone] Caroline Hatfield D.OElvis [address] [place] [phone] documented as of this encounter Visit Diagnoses Not on filedocumented in this encounter Care Teams Stars Analytical Lead Relationship Specialty Start Date End Date Elsewhere, Pcp PCP - General Internal Medicine 05/02/23 documented as of this encounter
--- OUTSIDE RECORDS SUMMARY | 2023-10-22 21:41 | XMS_ITS | Encounter Summary ---
Author Name Unknown Organization [facility] Address [address] [place] [address] Care Team Providers Care Turbine Subassembler Name Role Phone Elsewhere, Pcp Primary Care Provider Unavailabl e Encounter Details Date Type Department Care Team (Late st Contact Info) Description 08/18/2023 Orders Only Division of Gastroenterology in [place], [place] [address] [place] [phone] Rahul Fam M.D. [address] [place] [address] Genetic Susceptibility To Disease Social History Tobacco [...] week 07/10/2022 How often do you attend [facility] or [facility] services? Patient declined 07/10/2022 Do you belong to any clubs o r organizations such as zoroastrian groups, unions, fraternal or [...] heating? Not hard at all 07/10/2022 [facility] Occupat ional Health - Occupational [...] or slept in a detention (including now)? No 07/10/2022 Nutrition Answer Date [...] AM CDT Clinical Communication Virtual Review in [place], [place] [address] [place] [address] 12/09/2023 8:50 AM CDT Appointment Department of Laboratory Medicine and Pathology, [facility], in [place], [place] [address] [place] [address] Caroline Hatfield D.O. [address] [place] [phone] 12/09/2023 11:00 AM CDT Procedure visit Department of Urology in [place], [place] [address] [place] [address] Caroline Hatfield D.O. [address] [place] [phone] 12/09/2023 3:00 PM CDT Office Visit Department of Urology in [place], [place] [address] [place] [address] Caroline Hatfield D.O. [address] [place] [phone] documented as of this encounter Procedures Procedure [...] enriched using a custom set of reagents ([employer]+ chemistry). Targeted regions were sequenced using an Illumina DNA sequencing system. Your sequence was matched to a modified version of the industry standard reference genome (GRCh38). Variant calling was completed using a customized version of [employer] software, requiring 20x coverage for validated variant calls. Copy Number Variants (CNVs) were called using a proprietary bioinformatics pipeline that compared the coverage profile of your sample with the coverage profiles of other reference set samples. [facility] [employer] then analyzed the generated variant data for the exons and 10 bp of flanking intronic sequence (and select tagged intronic variants) of the 11 genes included in go2 media from the [employer]. Your sample was reviewed for single [...] and medical management. 12/31/2022 12:00 AM CDT [facility] Human Reference Sequence Assembly GRCh38 12/31/2022 12:00 AM [facility] Saliva (Mouth) 11/26/2022 Rahul Fam M.D. LAB GENETI C TESTING [place] [address] [address], [address] [place] [address], [facility] [place] [address] [address], [address]. [place] [address] documented in this encounter Visit Diagnoses Diagnosis Genetic Susceptibility To Disease documented in this encounter Care Teams Turbine Subassembler Relationship Specialty Start Date End Date Elsewhere, Pcp PCP - General Internal Medicine 05/02/23 documented as of this encounter
--- OUTSIDE RECORDS SUMMARY | 2023-10-22 21:41 | XMS_ITS | Encounter Summary ---
Author Name Unknown Organization [facility] Address [address] [place] [id number] Care Team Providers Care Ac/Dc Rewinder Name Role Phone Elsewhere, Pcp Primary Care Provider Unavailabl e Encounter Details Date Type Department Care Team (Latest Contact Info) Description 10/21/2023 9:39 AM CDT - 10/21/2023 11:59 PM CDT Hospital Encounter Department of Laboratory Medicine and Pathology, [facility] in [place], [place] [address] [place] [address] Erica Nguyen M.D. [address] [place] [address] Crohn's Disease (HCC); Diarrhea Discharge Disposition: Home or Self Care [...] How often do you attend chur or catholic services? Patient declined 07/10/2022 Do you belong [...] and heating? Not hard at all 07/10/2022 [facility] [place] of Occupat ional Health - Occupational Stress [...] or slept in a custodial (including now)? No 07/10/2022 Nutrition Answer Date [...] capsule daily. clindamycin (Cleocin T) 1 % lotionIndications:Fu runculosis Apply 1 application topically daily. Apply to boil. 60 mL 3 02/08/2022 estradioL (ESTRACE) 0.1 mg/g (0.01%) vaginal cream as needed. 05/07/2022 furosemide (LASIX) 20 mg tablet Take 20 mg by mouth daily. 12/14/2021 hydrocortisone 2.5 % ointmentIndications: Dermatitis Asteatotic Xerotic Apply 1 application topically 2 (two) times a day. Apply to rash. 454 g 3 02/08/2022 inFLIXimab (REMICADE) 10 mg/mL injectionIndications :Crohn's Disease (HCC) Infuse 10mg/kg every 4-5 weeks. Premedicate with acetaminophen 650 mg PO, diphenhydramine 25 mg PO, and methylprednisolone 40 mg IV. 1 each 07/03/2023 krill oil 500 mg capsule Take by mouth. lisinopriL (PRINIVIL,ZESTRIL) 40 mg tablet daily. 09/12/2022 melatonin 5 mg tablet Take 1 tablet by mouth at bedtime as needed. TAKING 10MG DAILY 01/21/2013 metroNIDAZOLE (METROCREAM) 0.75 % creamIndications:Oth er Rosacea Apply 1 application topically 2 (two) [...] mouth daily. 12/14/2021 triamcinolone (KENALOG) 0.1 % creamIndications:Kvng matitis Asteatotic Xerotic Apply 1 application topically 2 (two) times a day as needed for Rash under wet wraps. 454 g 06/19/2023 documented as of this encounter Plan of Treatment Upcoming Encounters Date Type Department Care Team (Latest Contact Info) Description 12/05/2023 10:45 AM CDT Clinical Communication Virtual Review in [place], [place] [address] [place] [address] 12/09/2023 8:50 AM CDT Appointment Department of Laboratory Medicine and Pathology, [facility] in [place], [place] [address] [place] [phone] Caroline Hatfield D.O. [address] [place] [phone] 12/09/2023 11:00 AM CDT Procedure visit Department of Urology in [place], [place] [address] [place] [phone] Caroline Hatfield D.O. [address] [place] [phone] 12/09/2023 3:00 PM CDT Office Visit Department of Urology in [place], [place] [address] [place] [phone] Caroline Hatfield D.O. [address] [place] [phone] Scheduled Orders Name Type Priority Associated Diagnoses Order Schedule Clostridioides (Clostridium) Difficile Toxin, Molecular Detection, PCR, Feces Microbiology Routine Crohn's Disease (HCC) Diarrhea Once for 1 Occurrences starting 10/21/2023 until 10/21/2023 documented as of this encounter Visit Diagnoses Diagnosis Crohn's Disease (HCC) Diarrhea documented in this encounter Care Teams Ac/Dc Rewinder Relationship Specialty Start Date End Date Elsewhere, Pcp PCP - General Internal Medicine 05/02/23 documented as of this encounter
--- OUTSIDE RECORDS SUMMARY | 2023-10-22 21:41 | XMS_ITS | Clinical Summary ---
Author Name Unknown Organization [email or web address] Address [place], [place] [address] Care Team Providers Care Water Resource Engineer Name Role Phone Hansa Doty MD Primary Care Provider [phone] Allergies Active Allergy Reactions Criticality Noted Date [...] 09/18/2016 Active Phenol (CASTELLANI PAINT) 1.5 % liqdIndications:Ramp Flight Attendant hn's disease of small intestine without complication [...] by mouth once daily. 0 09/18/2016 Active Jqzw-Dcdsfwwwa-Fooi william-Aldiox (ZEASORB) powdIndications:Ramp Flight Attendant hn's disease of small intestine without complication [...] Department Care Team Description 09/09/2023 Orders Only [facility] Scanner 1 scan: (1-Ord) [facility], LAB RESULTS, 09/09/2023 08/05/2023 Orders Only [facility] Scanner 1 scan: (1-Ord) [facility], INFLIXIMAB ACT, 08/05/2023 from Last 3 [...] T Respiratory Rate 18 06/25/2021 11:15 AM MEDIA INTERN Oxygen Saturation 96% 12/05/2021 1:46 PM CDT [...] AM CDT SCAN-LABORATORY REPORT 08/05/2023 12:00 AM MEDIA INTERN SCAN-COLONOSCOPY 05/15/2022 12:0 0 AM MEDIA INTERN SCAN-MAMMOGRAPHY REPORT 03/04/2014 12:00 AM CDT from Last 3 Months or Most Recently Relevant to Health Maintenance Results * SCAN-LABORATORY REPORT (09/09/2023 12:00 AM CDT) Only the most recent of2 resultswithin the time period is included. Scanner OTHER * SCAN-COLONOSCOPY (05/15/2022 12:00 AM MEDIA INTERN) Scanner OTHER * SCAN-MAMMOGRAPHY REPORT (03/04/2014 12:00 AM CDT) Anatomical Region Laterality Modality Other Scanner OTHER from Last 3 Months or Most Recently Relevant to Health Maintenance Care Teams Water Resource Engineer Relationship Specialty Start Date End Date Hansa Doty MD [address] [place] [address] PCP - General Internal Medicine 07/15/16
--- OUTSIDE RECORDS SUMMARY | 2023-10-22 21:41 | XMS_ITS | Clinical Summary ---
Author Name Unknown Organization [facility] Address [address] [place] [address] Care Team Providers Care Emergency Communications Officer Name Role Phone Elsewhere, Pcp Primary Care Provider Unavailabl e Source Comments Patient records contain information from all sites at [facility]. For routine questions regarding patient records, call [phone] during business hours, M-F 8:00 AM - 5:00 PM Central Time. 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 Crohn's Disease (HCC); Diarrhea Discharge Disposition: Home or Self Care 10/06/2023 Clinical Communication Department of Urology in [place], [place] [address] [place] [phone] Caroline Hatfield D.O. 09/11/2023 Clinical Communication Division of Gastroenterology in [place], [place] [address] [place] [address] Erica Nguyen M.D. Med Question; Nurse Assessment 09/02/2023 9:50 AM CDT - 09/02/2023 11:59 PM CDT Hospital Encounter Department of Laboratory Medicine and Pathology, [place], [place] [address] [place] [address] Erica Nguyen M.D. Diarrhea Discharge Disposition: Home or Self Care 08/29/2023 Clinical Communication Division of Gastroenterology in [place], [place] [address] [place] [address] Erica Nguyen M.D. Inflammatory Bowel Disease (C.Diff Testing) 08/18/2023 Orders Only Division of Gastroenterology in [place], [place] [address] [place] [address] Rahul Fam M.D. Genetic Susceptibility To Disease [...] week 07/10/2022 How often do you attend [facility] or episcopalian services? Patient declined 07/10/2022 Do you belong to any clubs o r organizations such as mosque groups, unions, fraternal or [...] and heating? Not hard at all 07/10/2022 [facility] of Occupat ional Health - Occupational Stress [...] Comments Blood Pressure 129/67 05/14/2023 1:30 PM RN NEONATAL ICU Pulse 69 05/14/2023 1:35 PM RN NEONATAL ICU Temperature 36.7 ??C (98.1 ??F) 05/14/2023 12:[address] Respiratory Rate 21 05/14/2023 1:35 PM RN NEONATAL ICU Oxygen Saturation 91% 05/14/2023 1:35 PM RN NEONATAL ICU Inhaled Oxygen Concentration - - Weight 101 kg (223 lb 5.2 oz) 05/14/2023 9:12 AM RN NEONATAL ICU Height 167 cm (5' 5.75) 05/01/2023 3:48 PM RN NEONATAL ICU Body Mass Index 36.32 05/01/2023 3:48 PM RN NEONATAL ICU Plan of Treatment Upcoming Encounters Date Type Department Care Team (Latest Contact Info) Description 12/05/2023 10:45 AM CDT Clinical Communication Virtual Review in [place], [place] 200 [place] [address] 12/09/2023 8:50 AM CDT Appointment Department of Laboratory Medicine and Pathology, [facility], in [place], [place] [address] [place] [phone] Caroline Hatfield D.O. [address] [place] [phone] 12/09/2023 11:00 AM CDT Procedure visit Department of Urology in [address] [phone] Caroline Hatfield D.O. [address] [place] [phone] 12/09/2023 3:00 PM CDT Office Visit Department of Urology in [place], [place] [address] [place] [phone] Caroline Hatfield D.O. [address] [place] [phone] Health Maintenance Due Date Last Done Comments [...] this topic Medical Devices Implanted Type Area Sales Representative Printing Paper Device Identifier Shelf Expiration Date Model / Serial / Lot Hardware E.G. Pins/Screws/Lloyd s Hardware e.g. pins/screws/r ods Scalp Nevaeh-Screw 1.5x 4mm - Muñiz [id number] Implanted:Qty: 3 on 04/20/2012 Hardware e.g. pins/screws/r ods [place] Description:Device Manufactu rer - Nevaeh Florina.. Device Status Text - [id number]. [place]-Mesh 90x90x.6mm(Gold ) - Muñiz [id number] Implanted:Qty: 1 on 04/20/2012 Hardware e.g. pins/screws/r ods [place] Description:Device Manufactu rer - Nevaeh hipix.. Device Status Text - [id number]. Knee Implant- 6 Implanted:11/21 (Quantity not on file) Knee Implant Left: Knee Knee Implant- 6 Implanted:11/21 (Quantity not on file) Knee Implant Right: Knee Quincy Richard Fuzzy 1 X 1 - Muñiz [id number] Implanted:Qty: 1 on 04/20/2012 Mesh or Patch [employer] Description:Device Manufactu [employer]. Device Status Text - [id number]-1667. [facility] Data - [id number]. Gen Nrstm F15 [id number] - [id number] - [id number] Implanted:Qty: 1 on 05/14/2023 by Caroline Hatfield D.O. at [facility]/[employer] Sacral Nerve Stimulator N/A: Back [employer] 01/22/2024 4101 / [id number] / Kt Piper Ld Str Crv Stylt Sn - [id number] - [id number] Implanted:Qty: 1 on 05/14/2023 by Caroline Hatfield D.O. at [facility] Nguyen/[employer] Sacral Nerve Stimulator N/A: Back [employer]ics [employer] Inc 10/04/2025 1201 / [id number] / Prgrmr Pt Rem Ctrl Snm - [id number] - [id number] Implanted:Qty: 1 on 05/14/2023 by Caroline Hatfield D.O. at [facility] Sacral Nerve Stimulator N/A: Back [employer] 05/22/2033 4967 / [id number] 25 / Procedures Procedure Name Priority Date/Time Associated Diagnosis Comments C. DIFFICILE TOXIN PCR, F Routine 09/07/2023 9:09 AM CDT Diarrhea CREATININE WITH EGFR, S/P Routine 06/12/2023 9:37 AM RN NEONATAL ICU Ileitis Crohn's (HCC) BASIC METABOLIC PANEL, S/P Routine 05/01/2023 2:55 PM RN NEONATAL ICU Preanesthetic Medical Exam COLONOSCOPY Routine 05/15/2022 10:57 AM RN NEONATAL ICU Crohn's Disease (HCC) Infection Urinary Tract Recurrent BI BREAST SCREENING BILATERAL Routine 03/04/2014 1:57 PM CDT from Last 3 Months or Most Recently Relevant to Health Maintenance Results * (ABNORMAL) Clostridioides (Clostridium) Difficile Toxin, Molecular Detection, PCR, Feces (09/07/2023 9:09 AM CDT) C. difficile Toxin, F Positive( A) Negative 09/07/2023 10:50 AM CDT DTL Semi-Urgent This is a semi-urge nt result(MCCULLOUGH ) [facility] Stool (Stool) 09/07/2023 9:0 9 AM CDT 09/07/2023 9:51 AM CDT Narrative Resulting Agency Comment Unable to Determine Date and Time of Collection Erica Nguyen M.D. LAB MICROBIOLOGY - GENERAL ORDERABLES [facility] [address] [place] [address], [facility] [address] [place] [address] * Creatinine with Estimated GFR (06/12/2023 9:37 AM RN NEONATAL ICU) Creatinine 0.90 0.59 - 1.04 mg/dL 06/12/2023 11:03 AM RN NEONATAL ICU DTL Estimated GFR (eGFR) 70 >=60 mL/min/BSA 06/12/2023 11:03 AM RN NEONATAL ICU DTL Comment: Estimated GFR calculated using the 2020 CKD_EPI creatinine equation. Blood (Blood, Venous) 06/12/2023 9:37 AM RN NEONATAL ICU 06/12/2023 10:22 AM RN NEONATAL ICU Gali Porter M.D. LAB BLOOD ADD-ON [facility] [address] [place] [address], [facility] [address] [place] [address] * (ABNORMAL) Basic Metabolic Panel (05/01/2023 2:55 PM RN NEONATAL ICU) Potassium, S 4.1 3.6 - 5.2 mmol/L 05/01/2023 3:48 PM RN NEONATAL ICU DTL Sodium, S 140 135 - 145 mmol/L 05/01/2023 3:48 PM RN NEONATAL ICU DTL Chloride, S 104 98 - 107 mmol/L 05/01/2023 3:48 PM RN NEONATAL ICU DTL Bicarbonate, S 24 22 - 29 mmol/L 05/01/2023 3:48 PM RN NEONATAL ICU DTL Anion Gap 12 7 - 15 05/01/2023 3:48 PM RN NEONATAL ICU DTL BUN (Blood Urea Nitrogen), S 15 6 - 21 mg/dL 05/01/2023 3:48 PM RN NEONATAL ICU DTL Creatinine 1.14(H) 0.59 - 1.04 mg/dL 05/01/2023 3:48 PM RN NEONATAL ICU DTL Estimated GFR (eGFR) 52(L) >=60 mL/min/BSA 05/01/2023 3:48 PM RN NEONATAL ICU DTL Comment: Estimated GFR calculated using the 2020 CKD_EPI creatinine equation. Calcium, Total, S 9.1 8.8 - 10.2 mg/dL 05/01/2023 3:48 PM RN NEONATAL ICU DTL Glucose, S 137 70 - 140 mg/dL 05/01/2023 3:48 PM RN NEONATAL ICU DTL Blood (Blood, Venous) 05/01/2023 2:55 PM RN NEONATAL ICU 05/01/2023 3:27 PM RN NEONATAL ICU Benita Barber APRN, C.N.P., M.SSadie LEGGETT BLOOD ADD-ON [facility] [address] [place] [address], [facility] DTL [facility] [address] [place] [address] * BI Breast Screening Bilateral (03/04/2014 1:57 [...] Recently Relevant to Health Maintenance Care Teams Emergency Communications Officer Relationship Specialty Start Date End Date Elsewhere, Pcp PCP - General Internal Medicine 05/02/23
--- OUTSIDE RECORDS SUMMARY | 2023-10-22 21:41 | XMS_ITS | Referral Summary ---
Author Name Unknown Organization [facility] Address [address] [place] [address] Care Team Providers Care Marble Cleaner Name Role Phone Elsewhere, Pcp Primary Care Provider Unavailabl e Source Comments Patient records contain information from all sites at [facility]. For routine questions regarding patient records, call [phone] during business hours, M-F 8:00 AM - 5:00 PM Central Time. Record requests for emergency care only can be directed to [phone] at any time.[facility] Encounters Date Type Department Care Team Description 10/21/2023 9:39 AM CDT - 10/21/2023 11:59 PM CDT Hospital Encounter Department of Laboratory Medicine and Pathology, [place], [place] [address] [place] [phone] Erica Nguyen M.D. Crohn's Disease (HCC); Diarrhea Discharge Disposition: Home or Self Care 10/06/2023 Clinical Communication Department of Urology in [place], [place] [address] [place] [phone] Caroline Hatfield D.O. 09/11/2023 Clinical Communication Division of Gastroenterology in [place], [place] [address] [place] [phone] Erica Nguyen M.D. Med Question; Nurse Assessment 09/02/2023 9:50 AM CDT - 09/02/2023 11:59 PM CDT Hospital Encounter Department of Laboratory Medicine and Pathology, [facility] in [place], [place] [address] [place] [phone] Erica Nguyen M.D. Diarrhea Discharge Disposition: Home or Self Care 08/29/2023 Clinical Communication Division of Gastroenterology in [place], [place] [address] [place] [address] Erica Nguyen M.D. Inflammatory Bowel Disease (C.Diff Testing) 08/18/2023 Orders Only Division of Gastroenterology in [place], [place] [address] [place] [address] Rahul Fam M.D. Genetic Susceptibility To Disease [...] methylprednisolone 40 mg IV. 1 each 07/03/2023 Active vancomycin (VANCOCIN) 125 mg capsuleIndicati [...] Disease 11/07/2009 Atherosclerotic Heart Diseas e Of [place] Coronary Artery Without Angina Pectoris 07/17/2009 Fatty [...] week 07/10/2022 How often do you attend [facility] or yazidism services? Patient declined 07/10/2022 Do you belong to any clubs o r organizations such as jew groups, unions, fraternal or [...] 07/10/2022 [facility] of Occupat ional [facility] - Occupational Stress Questionnaire Answer Date Recorded [...] or slept in a residential (including now)? No 07/10/2022 Nutrition Answer Date [...] Comments Blood Pressure 129/67 05/14/2023 1:30 PM HEATING AND COOLING TECHNICIAN Pulse 69 05/14/2023 1:35 PM HEATING AND COOLING TECHNICIAN Temperature 36.7 ??C (98.1 ??F) 05/14/2023 12:[address] Respiratory Rate 21 05/14/2023 1:35 PM HEATING AND COOLING TECHNICIAN Oxygen Saturation 91% 05/14/2023 1:35 PM HEATING AND COOLING TECHNICIAN Inhaled Oxygen Concentration - - Weight 101 kg (223 lb 5.2 oz) 05/14/2023 9:12 AM HEATING AND COOLING TECHNICIAN Height 167 cm (5' 5.75) 05/01/2023 3:48 PM HEATING AND COOLING TECHNICIAN Body Mass Index 36.32 05/01/2023 3:48 PM HEATING AND COOLING TECHNICIAN Plan of Treatment Upcoming Encounters Date Type Department Care Team (Latest Contact Info) Description 12/05/2023 10:45 AM CDT Clinical Communication Virtual Review in [place] [address] [place] [address] 12/09/2023 8:50 AM CDT Appointment Department of Laboratory Medicine and Pathology, [facility], in [place], [place] [address] [place] [address] Caroline Hatfield D.O. [address] [place] [phone] 12/09/2023 11:00 AM CDT Procedure visit Department of Urology in [place], [place] [address] [place] [phone] Caroline Hatfield D.O. [address] [place] [phone] 12/09/2023 3:00 PM CDT Office Visit Department of Urology in [place], [place] [address] [place] [address] Caroline Hatfield D.O. [address] [place] [phone] Medical Devices Implanted Type Area Granulating Machine Operator Device Identifier Shelf Expiration Date Model / Serial / Lot Hardware E.G. Pins/Screws/Lloyd s Hardware e.g. pins/screws/r ods Scalp [place]-Screw 1.5x 4mm - Muñiz [id number] Implanted:Qty: 3 on 04/20/2012 Hardware e.g. pins/screws/r ods Nev[place] Description:Device Manufactu rer - [employer] Device Status Text - [id number]. [place]-Mesh 90x90x.6mm(Gold ) - Muñiz [id number] Implanted:Qty: 1 on 04/20/2012 Hardware e.g. pins/screws/r ods [place] Description:Device Manufactu rer - [place] [facility].. Device Status Text - [id number]-16866. Knee Implant- 6 Implanted:11/21 (Quantity not on file) Knee Implant Left: Knee Knee Implant- 6 Implanted:11/21 (Quantity not on file) Knee Implant Right: Knee Honor Richard Fuzzy 1 X 1 - Muñiz [id number] Implanted:Qty: 1 on 04/20/2012 Mesh or Patch [facility] Description:Device Manufactu rer - [employer]. Device Status Text - MESHPATCH-1667. [facility] Data - [id number]. Gen Nrstm F15 6.8n35d97 - [id number] - [id number] Implanted:Qty: 1 on 05/14/2023 by Caroline [facility] D.O[facility] at [facility] Sacral Nerve Stimulator N/A: Back Axonics Modulation [employer] 01/22/2024 4101 / [id number] 21 / Kt Piper Ld Str Crv Stylt Snm - [id number] - [id number] Implanted:Qty: 1 on 05/14/2023 by Caroline Hatfield D.O. at [facility] Nguyen/[facility] Sacral Nerve Stimulator N/A: Back Axonics Modulation [employer] 10/04/2025 1201 / [id number] / Prgrmr Pt Rem Ctrl Snm - [id number] - [id number] Implanted:Qty: 1 on 05/14/2023 by Caroline Hatfield D.O. at [facility] Sacral Nerve Stimulator N/A: Back Axonics Modulation [employer] 05/22/2033 2301 / [id number] / Procedures Procedure Name Priority Date/Time Associated Diagnosis Comments C. DIFFICILE TOXIN PCR, F Routine 09/07/2023 9:09 AM CDT Diarrhea CREATININE WITH EGFR, S/P Routine 06/12/2023 9:37 AM HEATING AND COOLING TECHNICIAN Ileitis Crohn's (HCC) BASIC METABOLIC PANEL, S/P Routine 05/01/2023 2:55 PM HEATING AND COOLING TECHNICIAN Preanesthetic Medical Exam COLONOSCOPY Routine 05/15/2022 10:57 AM HEATING AND COOLING TECHNICIAN Crohn's Disease (HCC) Infection Urinary Tract Recurrent BI BREAST SCREENING BILATERAL Routine 03/04/2014 1:57 PM CDT from Last 3 Months or Most Recently Relevant to Health Maintenance Results * (ABNORMAL) Clostridioides (Clostridium) Difficile Toxin, Molecular Detection, PCR, Feces (09/07/2023 9:09 AM CDT) C. difficile Toxin, F Positive( A) Negative 09/07/2023 10:50 AM CDT DTL Semi-Urgent This is a semi-urge nt result(MCCULLOUGH ) [facility] Stool (Stool) 09/07/2023 9:0 9 AM CDT 09/07/2023 9:51 AM CDT Narrative Resulting Agency Comment Unable to Determine Date and Time of Collection Erica Nguyen M.D. LAB MICROBIOLOGY - GENERAL ORDERABLES [facility] [address] [place] [address] * Creatinine with Estimated GFR (06/12/2023 9:37 AM HEATING AND COOLING TECHNICIAN) Pathologist [facility] Creatinine 0.90 0.59 - 1.04 mg/dL 06/12/2023 11:03 AM HEATING AND COOLING TECHNICIAN DTL Estimated GFR (eGFR) 70 >=60 mL/min/BSA 06/12/2023 11:03 AM HEATING AND COOLING TECHNICIAN DTL Comment: Estimated GFR calculated using the 2020 CKD_EPI creatinine equation. Blood (Blood, Venous) 06/12/2023 9:37 AM HEATING AND COOLING TECHNICIAN 06/12/2023 10:22 AM HEATING AND COOLING TECHNICIAN Gali Porter M.D. LAB BLOOD ADD-ON [facility] 200 [place] [address], [facility] [place] [address] * (ABNORMAL) Basic Metabolic Panel (05/01/2023 2:55 PM HEATING AND COOLING TECHNICIAN) Potassium, S 4.1 3.6 - 5.2 mmol/L 05/01/2023 3:48 PM HEATING AND COOLING TECHNICIAN DTL Sodium, S 140 135 - 145 mmol/L 05/01/2023 3:48 PM HEATING AND COOLING TECHNICIAN DTL Chloride, S 104 98 - 107 mmol/L 05/01/2023 3:48 PM HEATING AND COOLING TECHNICIAN DTL Bicarbonate, S 24 22 - 29 mmol/L 05/01/2023 3:48 PM HEATING AND COOLING TECHNICIAN DTL Anion Gap 12 7 - 15 05/01/2023 3:48 PM HEATING AND COOLING TECHNICIAN DTL BUN (Blood Urea Nitrogen), S 15 6 - 21 mg/dL 05/01/2023 3:48 PM HEATING AND COOLING TECHNICIAN DTL Creatinine 1.14(H) 0.59 - 1.04 mg/dL 05/01/2023 3:48 PM HEATING AND COOLING TECHNICIAN DTL Estimated GFR (eGFR) 52(L) >=60 mL/min/BSA 05/01/2023 3:48 PM HEATING AND COOLING TECHNICIAN DTL Comment: Estimated GFR calculated using the 2020 CKD_EPI creatinine equation. Calcium, Total, S 9.1 8.8 - 10.2 mg/dL 05/01/2023 3:48 PM HEATING AND COOLING TECHNICIAN DTL Glucose, S 137 70 - 140 mg/dL 05/01/2023 3:48 PM HEATING AND COOLING TECHNICIAN DTL Blood (Blood, Venous) 05/01/2023 2:55 PM HEATING AND COOLING TECHNICIAN 05/01/2023 3:27 PM HEATING AND COOLING TECHNICIAN Ernie Lincoln APRN.NRosalia, M.S.N. LA B BLOOD ADD-ON [facility] [address] [place] [address], [facility] DTL [facility] [address] [place] [address] * BI Breast Screening Bilateral (03/04/2014 1:57 [...] Recently Relevant to Health Maintenance Care Teams Marble Cleaner Relationship Specialty Start Date End Date Elsewhere, Pcp PCP - General Internal Medicine 05/02/23
--- OUTSIDE RECORDS SUMMARY | 2023-10-22 21:41 | XMS_ITS | Encounter Summary ---
Author Name Unknown Organization [facility] Address [address] [place] [address] Care Team Providers Care Goldbeater Name Role Phone Elsewhere, Pcp Primary Care Provider Unavailabl e Reason for Referral * Outpatient (Routine) - Authorized Specialty Diagnoses / Procedures Referred By Contac t Referred To Contact Diagnoses Incontinence Urinary Retention Urinary Urgency Urinary Frequency Urinary Procedures URO Uroflow Caroline Hatfield D.O. [address] [place] [phone] [facility] Referral ID Status Reason Start Date Expiration Date V isits Requested Visits Authorized [id number] Authorized 10/06/2023 10/05/2024 1 1 * Outpatient (Routine) - Authorized Specialty Diagnoses / Procedures Referred By Contac t Referred To Contact Urology Caroline Hatfield D.O. [address] [place] [phone] Caroline Hatfield D.O. 200 [place] [address] Referral ID Status Reason Start Date Expiration Date V isits Requested Visits Authorized [id number] Authorized 10/06/2023 04/06/2025 1 1 Encounter Details Date Type Department Care Team (Late st Contact Info) Description 10/06/2023 Clinical Communication Department of Urology in [place], [place] 200 [place] [address] Caroline Hatfield D.O. 200 [place] [address] Social History Tobacco Use Types Packs/Day Years [...] often do you attend chur ch or confucianist services? Patient declined 07/10/2022 Do you belong to any clubs o r organizations such as uatsdin groups, unions, fraternal or [...] and heating? Not hard at all 07/10/2022 [facility] of Occupat ional Health - Occupational Stress [...] or slept in a mcfp (including now)? No 07/10/2022 Nutrition Answer Date [...] AM CDT Clinical Communication Virtual Review in [place], [place] 200 [place] [address] 12/09/2023 8:50 AM CDT Appointment Department of Laboratory Medicine and Pathology, [facility], in [place], [place] [address] [place] [phone] Caroline Hatfield D.O. [address] [place] [address] [place] [address] 12/09/2023 11:00 AM CDT Procedure visit Department of Urology in [place], [place] [address] [place] [address] Caroline Hatfield D.O. 200 [place] [address] 12/09/2023 3:00 PM CDT Office Visit Department of Urology in [place], [place] [address] [place] [address] Caroline Hatfield D.O. 200 [place] [address] Scheduled Orders Name Type Priority Associated Diagnoses [...] Urinary documented in this encounter Care Teams Goldbeater Relationship Specialty Start Date End Date Elsewhere, Pcp PCP - General Internal Medicine 05/02/23 documented as of this encounter
--- OUTSIDE RECORDS SUMMARY | 2023-10-22 21:41 | XMS_ITS | Encounter Summary ---
Author Name Unknown Organization [facility] Address [address] [place] [address] Care Team Providers Care Hygiene Coordinator Name Role Phone Elsewhere, Pcp Primary Care Provider Unavailabl e Encounter Details Date Type Department Care Team (Latest Contact Info) Description 09/02/2023 9:50 AM CDT - 09/02/2023 11:59 PM CDT Hospital Encounter Department of Laboratory Medicine and Pathology, [facility] in [place], [place] [address] [place] [address] Erica Nguyen M.D. [address] [place] [phone] Diarrhea Discharge Disposition: Home or Self Care [...] How often do you attend chur or shinto services? Patient declined 07/10/2022 Do you belong to any clubs o r organizations such as orthodoxy groups, unions, fraSambazon or athletic groups, or school groups? Yes [...] and heating? Not hard at all 07/10/2022 [facility] of Occupat ional Health - Occupational [...] or slept in a prison (including now)? No 07/10/2022 Nutrition Answer Date [...] AM CDT Clinical Communication Virtual Review in [place], [place] 200 [place] [address] 12/09/2023 8:50 AM CDT Appointment Department of Laboratory Medicine and Pathology, [facility], in [place], [place] [address] [place] [phone] Carolnie Hatfield D.O. [address] [place] [phone] 12/09/2023 11:00 AM CDT Procedure visit Department of Urology in [place], [place] [address] [place] [phone] Caroline Hatfield D.O. [address] [place] [phone] 12/09/2023 3:00 PM CDT Office Visit Department of Urology in [address] [phone] Caroline Hatfield D.O. [address] [place] [phone] documented as of this encounter Procedures Procedure Name Priority Date/Time Associated Diagnosis Comments C. DIFFICILE TOXIN PCR, F Routine 09/07/2023 9:09 AM CDT Diarrhea documented in this encounter Results * (ABNORMAL) Clostridioides (Clostridium) Difficile Toxin, Molecular Detection, PCR, Feces (09/07/2023 9:09 AM CDT) C. difficile Toxin, F Positive( A) Negative 09/07/2023 10:50 AM CDT DTL Semi-Urgent This is a semi-urge nt result(MCCULLOUGH ) [facility] Stool (Stool) 09/07/2023 9:0 9 AM CDT 09/07/2023 9:51 AM CDT Narrative Resulting Agency Comment Unable to Determine Date and Time of Collection Erica Nguyen M.D. LAB MICROBIOLOGY - GENERAL ORDERABLES [facility] [address] [place] [address], [facility] 200 [place] [address] documented in this encounter Visit Diagnoses Diagnosis Diarrhea documented in this encounter Care Teams Hygiene Coordinator Relationship Specialty Start Date End Date Elsewhere, Pcp PCP - General Internal Medicine 05/02/23 documented as of this encounter
--- OUTSIDE RECORDS SUMMARY | 2023-10-22 21:41 | XMS_ITS ---
Author Name Unknown Organization [facility] Address [address] [place] [address] Care Team Providers Care Market Research Consultant Name Role Phone Unavailable Unavailable Unavailable Surgery Details Not on file Complications Check Surgery Details section. Procedure Estimated Blood Loss Check Surgery Details section. Procedure Findings Check Surgery Details section. Procedure Specimens Taken Check Surgery Details section.
--- OUTSIDE RECORDS SUMMARY | 2023-10-22 21:41 | XMS_ITS | Encounter Summary ---
Author Name Unknown Organization [facility] Address [address] [place] [address] Care Team Providers Care Slip Injector And Applicator Name Role Phone Elsewhere, Pcp Primary Care Provider Unavailabl e Reason for Visit * Reason Onset Date Comments IFX trough/C diff 07/01/2023 Encounter Details Date Type Department Care Team (Latest Contact Info) Description 07/01/2023 Clinical Communication Division of Gastroenterology in [place], [place] [address] [place] [phone] Erica Nguyen M.D. [address] [place] [phone] IFX trough/C diff Social History Tobacco Use [...] any clubs o r organizations such as latter day groups, unions, fraternal [...] and heating? Not hard at all 07/10/2022 [facility] of Occupat ional Health - Occupational Stress [...] AM CDT Clinical Communication Virtual Review in [place], [place] [address] [place] [address] 12/09/2023 8:50 AM CDT Appointment Department of Laboratory Medicine and Pathology, [facility], in [place], [place] [address] [place] [address] Caroline Hatfield D.O. [address] [place] [phone] 12/09/2023 11:00 AM CDT Procedure visit Department of Urology in [place], [place] [address] [place] [phone] Caroline Hatfield D.O. [address] [place] [address] 12/09/2023 3:00 PM CDT Office Visit Department of Urology in [place], [place] [address] [place] [address] Caroline Hatfield D.O. [address] [place] [phone] documented as of this encounter Visit Diagnoses Diagnosis Crohn's Disease (HCC)- Primary documented in this encounter Care Teams Slip Injector And Applicator Relationship Specialty Start Date End Date Elsewhere, Pcp PCP - General Internal Medicine 05/02/23 documented as of this encounter
--- OUTSIDE RECORDS SUMMARY | 2023-10-22 21:41 | XMS_ITS | Encounter Summary ---
Author Name Unknown Organization [facility] Address [address] [place] [address] Care Team Providers Care Nurse Clinical Name Role Phone Elsewhere, Pcp Primary Care Provider Unavailabl e Reason for Visit * Reason Onset Date Comments Med Question 09/11/2023 Nurse Assessment 09/11/2023 Encounter Details Date Type Department Care Team (Latest Contact Info) Description 09/11/2023 Clinical Communication Division of Gastroenterology in [place], [place] [address] [place] [address] Danna Henry M.D. [address] [place] [address] Med Question; Nurse Assessment Social History Tobacco Use Types Packs/Day Years [...] How often do you attend chur or holiness services? Patient declined 07/10/2022 Do you belong to any clubs o r organizations such as lutheran groups, unions, fraternal or [...] and heating? Not hard at all 07/10/2022 [facility] of Occupat ional Health - Occupational [...] slept in a long term (including now)? No 07/10/2022 Nutrition Answer Date [...] encounter Miscellaneous Notes * Addendum Note - Danna Henry M.D. - 10/21/2023 8:10 AM CDTAddended by: DANNA HENRY on: 10/21/2023 08:10 AM Modules accepted: Orders * Addendum Note - Nikos Arteaga RElvisN. - 10/21/2023 7:49 AM CDTAddended by: NIKOS ARTEAGA on: 10/21/2023 07:49 AM Modules accepted: Orders documented in this encounter Plan of Treatment Upcoming Encounters Date Type Department Care Team (Latest Contact Info) Description 12/05/2023 10:45 AM CDT Clinical Communication Virtual Review in [place], [place] 200 [place] [address] 12/09/2023 8:50 AM CDT Appointment Department of Laboratory Medicine and Pathology, [facility] in [place], [place] [address] [place] [phone] Caroline Hatfield D.O. [address] [place] [phone] 12/09/2023 11:00 AM CDT Procedure visit Department of Urology in [address] [address] Caroline Hatfield D.O. [address] [place] [phone] 12/09/2023 3:00 PM CDT Office Visit Department of Urology in [place], [place] [address] [place] [phone] Caroline Hatfield D.O. [address] [place] [phone] Scheduled Orders Name Type Priority Associated Diagnoses Orde r Schedule Clostridioides (Clostridium) Difficile Toxin, Molecular Detection, PCR, Feces Microbiology Routine Crohn's Disease (HCC) Diarrhea Expected: 10/21/2023 (Approximate), Expires: 10/10/2025 documented as of this encounter Visit Diagnoses Diagnosis Crohn's Disease (HCC)- Primary Diarrhea documented in this encounter Care Teams Nurse Clinical Relationship Specialty Start Date End Date Elsewhere, Pcp PCP - General Internal Medicine 05/02/23 documented as of this encounter
--- OUTSIDE RECORDS SUMMARY | 2023-10-22 21:41 | XMS_ITS | Encounter Summary ---
Author Name Unknown Organization [facility] Address [address] [place] [address] Care Team Providers Care Slab Lifting Engineer Name Role Phone Elsewhere, Pcp Primary Care Provider Unavailabl e Reason for Visit * Reason Onset Date Comments Inflammatory Bowel Disease 08/29/2023 C.Dif f Testing Encounter Details Date Type Department Care Team (Latest Contact Info) Description 08/29/2023 Clinical Communication Division of Gastroenterology in [place], [place] [address] [place] [address] Erica Nguyen M.D. [address] [place] [phone] Inflammatory Bowel Disease (C.Diff Testing) Social History [...] How often do you attend chur or zoroastrianism services? Patient declined 07/10/2022 Do you belong to any clubs o r organizations such as anabaptist groups, unions, fraternal or [...] heating? Not hard at all 07/10/2022 [facility] of Occupat ional Health - [...] slept in a care home (including now)? No 07/10/2022 Nutrition Answer Date [...] Information Discussed Returned call to Dorothy at [facility] (ph: [phone]) to discuss patient's upcoming infliximab infusion scheduled [...] AM CDT Clinical Communication Virtual Review in [place], [place] 200 [place] [address] 12/09/2023 8:50 AM CDT Appointment Department of Laboratory Medicine and Pathology, [facility] in [address] [address] Caroline Hatfield D.O. [address] [place] [phone] 12/09/2023 11:00 AM CDT Procedure visit Department of Urology in [address] [address] Caroline Hatfield D.O. [address] [place] [phone] 12/09/2023 3:00 PM CDT Office Visit Department of Urology in [address] [address] Caroline Hatfield D.O. [address] [place] [phone] documented as of this encounter Results * (ABNORMAL) Clostridioides (Clostridium) Difficile Toxin, Molecular Detection, PCR, Feces (09/07/2023 9:09 AM CDT) C. difficile Toxin, F Positive( A) Negative 09/07/2023 10:50 AM CDT DTL Semi-Urgent This is a semi-urge nt result([place] ) [facility] Stool (Stool) 09/07/2023 9:0 9 AM CDT 09/07/2023 9:51 AM CDT Narrative Resulting Agency Comment Unable to Determine Date and Time of Collection Erica Nguyen M.D. LAB MICROBIOLOGY - GENERAL ORDERABLES [facility] [address] [place] [address], [facility] [address] [place] [address] documented in this encounter Visit Diagnoses Diagnosis Diarrhea- Primary documented in this encounter Care Teams Slab Lifting Engineer Relationship Specialty Start Date End Date Elsewhere, Pcp PCP - General Internal Medicine 05/02/23 documented as of this encounter
--- OUTSIDE RECORDS SUMMARY | 2023-10-22 21:42 | XMS_ITS | Data Portability ---
Author Name Unknown Address [address] [place] [address] Phone [phone] Organization [facility] Address [address] [facility] [address] [place] [address] Care Team Providers Care Patternmaker Metal Name Role Phone ANN GALVAN Primary Care [...] Not available 10:43:34 culture, urine 2021 022 [facility], [address] [facility] [place] [address], [place], [address], 09:11:35 urinalysis , dipstick 2021 022 Not available 10:55:24 Referral None recorded. Procedures None recorded. Surgeries None recorded. Imaging None recorded. Medication Orders Myrbetriq 50 mg tablet,ext ended release 2021 022 [facility], [address] [facility], [place], [address], 10:55:24 Patient TargetsNo targets recorded. Patient Instructions Encounter Date Encounter Id Patient Instructions Last Modified By Organization Details Last Modified Time 10/30/2021 [id number] Patient was give n Keflex 500mg Patient is to take 2 cap 2 X per day for 3 days. [email or web address] Not available 10/30/2021 10:46:20 Reason for Referral None Reported. Results Created Date Observation Date Name Description Value Unit Range Abnormal Flag LastModifiedBy Organization Detail LastModifiedTime 10/25/19 22 10/24/2021 urina lysis , dipst ick Color-Status Yellow Not Available [facility] [address], [place], [address], 10/24/2021 10:25:23 10/25/19 22 10/24/2021 urina lysis , dipst ick Clarity-Stat us Clear Not Available [facility] [address], [place], [address], 10/24/2021 10:25:23 10/31/19 22 10/30/2021 URINE CULTU RE final report microb iology result s abnormal Not Available [facility] [address], [place], [address], 11/01/2021 09:11:34 10/31/19 22 10/30/2021 urina lysis , dipst ick Color-Status Straw Not Available [facility] [address], [place], [address], 10/30/2021 10:42:01 10/31/19 22 10/30/2021 urina lysis , dipst ick Clarity-Stat us Slight ly Cloudy Not Available [facility] [address], [place], [address], 10/30/2021 10:42:01 10/31/19 22 10/30/2021 urina lysis , dipst ick Glucose-Stat us Negati ve Not Available [facility] [address], [place], [address], 10/30/2021 10:42:01 10/31/19 22 10/30/2021 urina lysis , dipst ick Bilirubin-St atus Negati ve Not Available [facility] [address], [place], [address], 10/30/2021 10:42:01 10/31/19 22 10/30/2021 urina lysis , dipst ick Ketones-Stat us Negati ve Not Available [facility] [address], [place], [address], 10/30/2021 10:42:01 10/31/19 22 10/30/2021 urina lysis , dipst ick Nitrates-Sta tus positi ve Not Available [facility] [address], [place], [address], 10/30/2021 10:42:01 10/31/19 22 10/30/2021 urina lysis , dipst ick Blood-Status Trace Not Available [facility] [address], [place], [address], 10/30/2021 10:42:01 10/31/19 22 10/30/2021 urina lysis , dipst ick Leuko-Status Small Not Available [facility] [address], [place], [address], 10/30/2021 10:42:01 07/02/19 22 06/25/2021 measu remen [...] Time 2 Bladder Scan completed Sylvia tamez [facility] 10/24/2021 10:25:41 3 colonoscopy completed Clay Hernandez MD [address] [place] [address],[address], [address], [facility] 10/24/2021 10:39:41 8 insertion of single incision mid-urethral mini-sling completed Clay Hernandez MD [address] [place] [address],[address], [address], [facility] 10/24/2021 10:41:56 total knee replacement completed Clay Hernandez MD [address] [place] [address],[address], [address], [facility] 10/24/2021 10:39:16 Imaging Results Imaging Date Name [...] Name and Address Organization Details Recorded Time [id number] codeine medicatio n Not available Not available Not available 10/24/2021 2670 [facility] 10:28:53 031612 hydrochlo rothiazid e medicatio n rash Not available Not available 10/24/2021 5487 [facility] 10:29:06 418954 Humira medicatio n rash Not available Not available 10/24/2021 84972 4 RxNorm Poly mumab Sylvia Senior [facility] 2 10:29:38 Medications Name Sig Start Date [...] Updated DateTime 10/24/2021 165.1 cm 36.4 kg/m2 24464.73 g Clay Hernandez MD [address] [place] [address],[address], [place], [address], [facility] 10/24/2021 10:35:09 Social History Question Answer Notes LastModified by Organizat ion Details LastModified Time Tobacco Smoking Status Former Smoker Sylvia Senior [facility], [facility] 10/24/2021 10:26:38 What Is Your Level [...] o Information not available 10/24/2021 Preferred Language Mauritian Information not available 10/24/2021 Number Of Pregnancies [...] Has Tobacco Cessation Counseling Been Provided? [place] [id number] Information not available 10/24/2021 On What Date Was Tobacco Cessation Counseling Provided? [facility] 10/24/2021 Do You Or Have You Ever Used Any Other Forms Of Tobacco Or Nicotine? [facility] Information not available 10/24/2021 Sex: Female [...] Encounter Closed Date Diagnosis/Indication Diagnosis SNOMED-CT Code [id number] MD BUD Perez_Smiley [address] [place] [address] 10/24/2021 10:11:07 10/31/2021 12:54:44 Mixed urinary incontinence [id number] MD Kb Perez [address] [place] [address] 10/30/2021 10:01:41 11/02/2021 13:12:22 Urinary tract infectious disease [id number] Health Concerns Section Related Observation LastModified by Organization Detai ls LastModified Time None Recorded Concern Status LastModified by Organization Details LastModified Time None Recorded Advance Directives Directive None Recorded Payers Encounter Date Sequence Insurance Name Policy Number Policy Randall Covered Member ID Randall Member ID Guarantor Name 10/30/2021 1 [place] [employer] Brittaney H Roland [id number] Brittaney H Roland 10/30/2021 2 [place] [id number] Brittaney H Roland [id number] Brittaney H Roland 10/24/2021 1 [place] [facility] Brittaney H Roland [id number] Brittaney H Roland 10/24/2021 2 [place] [facility] [place] [id number] Brittaney H Roland [id number] Brittaney H Roland Notes Date Note Type [...] PVR = 125 mL Clay Hernandez MD [address] [place] [address],[address], [place], [address], [place] - [facility] 10/27/2021 13:23:02 OBGyn Episode No OBEpisode recorded.
--- OUTSIDE RECORDS SUMMARY | 2023-10-22 21:42 | XMS_ITS | Continuity of Care Document ---
Author Name Unknown Organization [facility] Address [address] [address] [place] [address] Phone Care Team Providers Care High Reach Operator Name Role Phone Unavailable Unavailable Unavailable Allergies, [...] Diagnoses Date Provider Providers Copied on Encounter [facility], [address] [address], [place], [id number], [place] tel:[phone] [facility] No Information 7 No Information Offic/outpt E&m Estab Low-mod [facility], [address] [address], [place], [id number], [place] tel:[phone] [facility] Crohn's Ileitis 7 No Information Referring Provider: Louann Hawthorne, [address] [facility] [address] [address], [place], [address]. tel:[phone] [facility], [address] [address], [place], [id number], [place] tel:[phone] [facility] No Information 7 No Information Offic/outpt E&m Estab Mod-hi 2 [facility], [address] [address], [place], [id number], [place] tel:[phone] [facility] Crohn's Ileitis 7 No Information Referring Provider: Louann Hawthorne, [address], [place], [address]. tel:[phone] [facility], [address] [address], [place], [id number], [place] tel:[phone] [facility] Crohn's Ileitis 7 No Information Referring Provider: Louann Hawthorne, [address], [place], [address]. tel:[phone] [facility], [address] [address], [place], [id number], [place] tel:[phone] [facility] Crohn's Ileitis 7 No Information Referring Provider: Louann Morocho MD [place], [address] [facility] [address], [place], [address]. tel:[phone] Offic/outpt E&m Estab Mod-hi 2 [facility], [address] [address], [place], [id number], [place] tel:[phone] [facility] Crohn's Ileitis 8200 7 No Information Referring Provider: Louann Hawthorne, [address] [facility] [address], [place], [address]. tel:[phone] Offic/outpt E&m Estab Low-mod [facility], [address] [address], [place], [id number], [place] tel:[phone] [facility] Crohn's IleitisDiarrheaA bdominal Pain, Unspecified 3200 7 No Information Referring Provider: Louann Hawthorne, [address] [facility] [address], [place], [address]. tel:[phone] [facility], [address] [address], [facility] [place], [id number], [place] tel:[phone] [facility] Colon Cancer ScreeningHemorrh oids Nos 6 No Information Referring Provider: Louann Hawthorne, [address], [place], [address]. tel:[phone] Offic/outpt E m Estab Low [facility], [address] [address], [facility] [place], [id number], [place] tel:[phone] [facility] Crohn's small/large intestine 8[address] 6 No Information Referring Provider: Louann Hawthorne, [address] [facility], [place], [address]. tel:[phone] [facility], [address] [address], [facility] [place], [id number], [place] tel:[phone] [facility] Sep-0 5200 6 No Information Referring Provider: Louann Hawthorne, [address] [facility] [address], [place], [address]. tel:[phone] Family History Family Member Type Diagnosis Age [...] asthma Payers Payer name Insurance type Covered alliance party ID Authoriza tion(s) No Information Social [...]
[2023-10-22 21:43] LABS: Basophils Absolute Auto 0.04 K/uL (0.00-0.30); Basophils Percent Auto 0.5 % (0.0-3.0); Eosinophils Absolute Auto 0.17 K/uL (0.00-0.50); Eosinophils Percent Auto 2.1 % (0.0-7.0); Hematocrit 37.2 % (33.0-51.0); Hemoglobin* 11.7 gm/dL (12.0-16.0); Immature Granulocytes Abs Auto 0.06 K/uL (0.00-0.30); Immature Granulocytes Pct Auto 0.7 %; Lymphocytes Absolute Auto 1.79 K/uL (0.90-2.90); Mean Corpuscular HGB Conc 32 gm/dL (32-36); Mean Corpuscular Hemoglobin 25 pg (26-34); Mean Corpuscular Volume 81 fL (80-100); Monocytes Percent Auto 12.7 % (0.0-11.0); Neutrophils Absolute Auto 5.05 K/uL (1.7-7.0); Platelet Count* 193 K/uL (140-440); RDW Coefficient of Variation % 15.1 % (11.5-15.5); Red Blood Count 4.61 m/uL (4.00-5.20); White Blood Count* 8.14 K/uL (4.50-11.00)
[2023-10-22 21:44] LABS: Slide Review Reflex No
[2023-10-22 21:51] LABS: Appearance Urine Clear (Clear); Bilirubin Urine Negative (Negative); Blood Urine Negative (Negative); Color Urine Yellow (Yellow); Glucose Urine Negative (Negative); Ketones Urine Negative (Negative); Leukocyte Esterase Urine 2+ (Negative); Nitrite Urine Negative (Negative); Protein Urine Negative (Negative); Specific Gravity Urine 1.015 (1.000-1.030); Urobilinogen Urine 0.2 (0.2-1.0)
[2023-10-22 21:58] LABS: Chloride* 103 mmol/L (96-114); Sodium* 138 mmol/L (135-149)
[2023-10-22 22:01] LABS: Anion Gap 8 mEq/L (7-15); Carbon Dioxide* 27 mmol/L (20-32); Creatinine* 0.7 mg/dL (0.5-1.5); Est. Creatinine Clearance* 47.78; Estimated Glomerular Filt Rate 94 ml/min
[2023-10-22 22:02] LABS: Blood Urea Nitrogen* 12 mg/dL (7-30); Calcium* 8.6 mg/dL (8.4-10.6); Glucose* 115 mg/dL (60-115)
[2023-10-22 22:03] LABS: Potassium* 2.8 mmol/L (3.6-5.1)
[2023-10-22] MEDS: POTASSIUM CHLORIDE 10 MEQ CAPSULE ER 40 MEQ PO (22:09)
[2023-10-22 22:10] LABS: RBC Urine 0-2 (0-2); WBC Urine 25-50 (0-5)
[2023-10-22 22:11] LABS: Squamous Epithelial Cell Urine Few (None-Few); WBC Clumps Urine Few
[2023-10-22 22:12] VITALS: TEMP 37.1
[2023-10-22] MEDS: ACETAMINOPHEN 500 MG TABLET PO ×2 (22:12→22:13)
[2023-10-22 22:13] VITALS: TEMP 37.1
[2023-10-22 22:36] VITALS: BP 145/78; PULSE 74; RESP 20; TEMP 37.1; O2SAT 99
[2023-10-22 22:37] VITALS: BP 145/78; PULSE 74; RESP 20; TEMP 37.1
--- NOTE | 2023-10-23 09:33 | ED.NURSE ---
script for Lv called to [facility] in [place]
== END 2023-10-22 22:37 | disposition home or self-care (01) ==
LOC: ED 21:38
PROVIDERS: Emergency Provider Emergency Medicine Emergency Medical Services; PCP Internal Medicine
DX: A04.72 Enterocolitis due to Clostridium difficile, not specified as recurrent (principal)
CPT/HCPCS: 36415; 80048; 81001; 85025; 87086; 87186; 93005; 99283; 99284; A9270; J7030

== ENCOUNTER 2023-10-24 22:08 | Outpatient (REF) | payer MEDICARE, BC, SELFPAY ==
--- OUTSIDE RECORDS SUMMARY | 2023-10-24 22:11 | XMS_ITS | Encounter Summary ---
Author Name Unknown Organization [facility] Address [address] [place] [address] Care Team Providers Care Department Clinician Name Role Phone Elsewhere, Pcp Primary Care Provider Unavailabl e Reason for Referral * Outpatient (Routine) - Authorized Specialty Diagnoses / Procedures Referred By Contac t Referred To Contact Diagnoses Incontinence Urinary Retention Urinary Urgency Urinary Frequency Urinary Procedures URO Uroflow Caroline Hatfield D.O. [address] [place] [address] [facility] Referral ID Status Reason Start Date Expiration Date V isits Requested Visits Authorized [id number] Authorized 10/06/2023 10/05/2024 1 1 * Outpatient (Routine) - Authorized Specialty Diagnoses / Procedures Referred By Contac t Referred To Contact Urology Caroline Hatfield D.O. [address] [place] [address] Caroline Hatfield D.O. 200 [place] [address] Referral ID Status Reason Start Date Expiration Date V isits Requested Visits Authorized [id number] Authorized 10/06/2023 04/06/2025 1 1 Encounter Details Date Type Department Care Team (Late st Contact Info) Description 10/06/2023 Clinical Communication Department of Urology in [place], [place] 200 [place] [address] Caroline Hatfield D.O. 200 [place] [address] Social History Tobacco Use Types Packs/Day Years [...] often do you attend chur ch or latter day services? Patient declined 07/10/2022 Do you belong to any clubs o r organizations such as jewish groups, unions, fraternal or [...] and heating? Not hard at all 07/10/2022 [facility] of Occupat ional Health - Occupational Stress [...] AM CDT Clinical Communication Virtual Review in [place], [place] 200 [place] [address] 12/09/2023 8:50 AM CDT Appointment Department of Laboratory Medicine and Pathology, [facility], in [place], [place] [address] [place] [address] Caroline Hatfield D.O. [address] [place] [address] [place] [address] 12/09/2023 11:00 AM CDT Procedure visit Department of Urology in [place], [place] [address] [place] [address] Caroline Hatfield D.O. 200 [place] [address] 12/09/2023 3:00 PM CDT Office Visit Department of Urology in [place], [place] [address] [place] [address] Caroline Hatfield D.O. 200 [place] [address] Scheduled Orders Name Type Priority Associated Diagnoses [...] Urinary documented in this encounter Care Teams Department Clinician Relationship Specialty Start Date End Date Elsewhere, Pcp PCP - General Internal Medicine 05/02/23 documented as of this encounter
--- OUTSIDE RECORDS SUMMARY | 2023-10-24 22:11 | XMS_ITS | Encounter Summary ---
Author Name Unknown Organization [facility] Address [address] [place] [address] Care Team Providers Care Bridge Expert Name Role Phone Elsewhere, Pcp Primary Care Provider Unavailabl e Encounter Details Date Type Department Care Team (Latest Contact Info) Description 10/21/2023 9:39 AM CDT - 10/21/2023 11:59 PM CDT Hospital Encounter Department of Laboratory Medicine and Pathology, [facility] in [place], [place] [address] [place] [address] Erica Nguyen M.D. [address] [place] [phone] Crohn's Disease (HCC); Diarrhea Discharge Disposition: Home [...] How often do you attend chur or jain services? Patient declined 07/10/2022 Do you belong to any clubs o r organizations such as baptist groups, unions, fraternal or [...] and heating? Not hard at all 07/10/2022 [facility] [place] of Occupat ional Health - Occupational Stress [...] AM CDT Clinical Communication Virtual Review in [place], [place] 200 [place] [address] 12/09/2023 8:50 AM CDT Appointment Department of Laboratory Medicine and Pathology, [facility] in [place], [place] [address] [place] [phone] Caroline Hatfield D.O. [address] [place] [phone] 12/09/2023 11:00 AM CDT Procedure visit Department of Urology in [address] [address] Caroline Hatfeild D.O. [address] [place] [phone] 12/09/2023 3:00 PM CDT Office Visit Department of Urology in [place], [place] [address] [place] [phone] Caroline Hatfield D.O. [address] [place] [phone] documented as of this encounter Procedures Procedure Name Priority Date/Time Associated Diagnosis Comments C. DIFFICILE TOXIN PCR, F Routine 10/22/2023 1:15 PM CDT Crohn's Disease (HCC) Diarrhea documented in this encounter Results * (ABNORMAL) Clostridioides (Clostridium) Difficile Toxin, Molecular Detection, PCR, Feces (10/22/2023 1:15 PM CDT) C. difficile Toxin, F Positive( A) Negative 10/24/2023 2:43 PM CDT DTL Semi-Urgent This is a semi-urge nt result(MCCULLOUGH ) [facility] [place] Stool (Stool) 10/22/2023 1:1 5 PM CDT 10/24/2023 1:34 PM CDT Erica Nguyen M.D. LAB MICROBIOLOGY - GENERAL ORDERABLES [facility] [place] [address] [place] [address], [facility] 200 [place] [address] documented in this encounter Visit Diagnoses Diagnosis Crohn's Disease (HCC) Diarrhea documented in this encounter Care Teams Bridge Expert Relationship Specialty Start Date End Date Elsewhere, Pcp PCP - General Internal Medicine 05/02/23 documented as of this encounter
--- OUTSIDE RECORDS SUMMARY | 2023-10-24 22:11 | XMS_ITS | Clinical Summary ---
Author Name Unknown Organization [facility] Address [address] [place] [address] Care Team Providers Care Poultry Cutter Name Role Phone Elsewhere, Pcp Primary Care Provider Unavailabl e Source Comments Patient records contain information from all sites at [facility]. For routine questions regarding patient records, call [phone] during business hours, M-F 8:00 AM - 5:00 PM Central Time. Record requests for emergency care only can be directed to [phone] at any time.[facility] Allergies Active Allergy Reactions Criticality Noted Date [...] 11 07/03/2023 Active vancomycin (VANCOCIN) 125 mg capsule Take 1 capsule (125 mg total) by mouth as directed. After you complete 14 days of 4 times daily; take 1 capsule twice daily x 7 days, 1 capsule once daily x 7 days, 1 capsule every other day x 8 days, then 1 capsule every 3 days x 15 days 30 capsule 10/24/2023 Active potassium chloride (K-TAB) 20 mEq CR tablet Take 1 tablet (20 mEq total) by mouth 2 (two) times a day with meals. 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 10/24/2023 Clinical Communication Department of Urology in [place], [place] [address] [place] [address] Caroline Hatfield D.O. 10/21/2023 9:39 AM CDT - 10/21/2023 11:59 PM CDT Hospital Encounter Department of Laboratory Medicine and Pathology, [facility], in [place], [place] [address] [place] [address] Erica Nguyen M.D. Crohn's Disease (HCC); Diarrhea Discharge Disposition: Home or Self Care 10/06/2023 Clinical Communication Department of Urology in [place], [place] [address] [place] [address] Caroline Hatfield D.O. 09/11/2023 Clinical Communication Division of Gastroenterology in [place], [place] [address] [place] [phone] Erica Nguyen M.D. Nurse Assessment; Inflammatory Bowel Disease (Symptomatic ) 09/02/2023 9:50 AM CDT - 09/02/2023 11:59 PM CDT Hospital Encounter Department of Laboratory Medicine and Pathology, [facility], in [place], [place] [address] [place] [address] Erica Nguyen M.D. Diarrhea Discharge Disposition: Home or Self Care 08/29/2023 Clinical Communication Division of Gastroenterology in [place], [place] [address] [place] [phone] Erica Nguyen M.D. Inflammatory Bowel Disease (C.Diff Testing) 08/18/2023 Orders Only Division of Gastroenterology in [place], [place] [address] [place] [phone] Rahul Fam M.D. Genetic Susceptibility To Disease [...] Ashlee Father Ray Maternal Grandmother Karen Mother Minet Sister 1 Ashlee Sister 2 Yashira Social [...] week 07/10/2022 How often do you attend [facility] or voodoo services? Patient declined 07/10/2022 Do you belong to any clubs o r organizations such as hinduism groups, unions, fraternal or [...] and heating? Not hard at all 07/10/2022 [facility] - Occupational Stress Questionnaire Answer Date [...] Comments Blood Pressure 129/67 05/14/2023 1:30 PM CNC LATHE MACHINIST Pulse 69 05/14/2023 1:35 PM CNC LATHE MACHINIST Temperature 36.7 ??C (98.1 ??F) 05/14/2023 12:[address] Respiratory Rate 21 05/14/2023 1:35 PM CNC LATHE MACHINIST Oxygen Saturation 91% 05/14/2023 1:35 PM CNC LATHE MACHINIST Inhaled Oxygen Concentration - - Weight 101 kg (223 lb 5.2 oz) 05/14/2023 9:12 AM CNC LATHE MACHINIST Height 167 cm (5' 5.75) 05/01/2023 3:48 PM CNC LATHE MACHINIST Body Mass Index 36.32 05/01/2023 3:48 PM CNC LATHE MACHINIST Plan of Treatment Upcoming Encounters Date Type Department Care Team (Latest Contact Info) Description 12/05/2023 10:45 AM CDT Clinical Communication Virtual Review in [place], [place] 200 [place] [address] 12/09/2023 8:50 AM CDT Appointment Department of Laboratory Medicine and Pathology, [facility], in [place], [place] [address] [place] [phone] Caroline Hatfield D.O. [address] [place] [phone] 12/09/2023 11:00 AM CDT Procedure visit Department of Urology in [place], [place] [address] [place] [phone] Caroline Hatfield D.O. [address] [place] [phone] 12/09/2023 3:00 PM CDT Office Visit Department of Urology in [place], [place] [address] [place] [address] Caroline Hatfield D.O. [address] [place] [phone] Health Maintenance Due Date Last Done Comments [...] this topic Medical Devices Implanted Type Area Cotton Ball Bagger Device Identifier Shelf Expiration Date Model / Serial / Lot Hardware E.G. Pins/Screws/Lloyd s Hardware e.g. pins/screws/r ods Scalp Nevaeh-Screw 1.5x 4mm - [id number] [id number] Implanted:Qty: 3 on 04/20/2012 Hardware e.g. pins/screws/r ods Crabtree Description:Device Manufactu rer - [employer].. Device Status Text - [id number]. Nevaeh-Mesh 90x90x.6mm(Gold ) - Muñiz [id number] Implanted:Qty: 1 on 04/20/2012 Hardware e.g. pins/screws/r ods Nevaeh Description:Device Manufactu rer [employer] Device Status Text - [id number]. Knee Implant- 6 Implanted:11/21 (Quantity not on file) Knee Implant Left: Knee Knee Implant- 6 Implanted:11/21 (Quantity not on file) Knee Implant Right: Knee [place] Richard Fuzzy 1 X 1 - Muñiz [id number] Implanted:Qty: 1 on 04/20/2012 Mesh or Patch Enable Injections Description:Device Manufactu [place]. Device Status Text - [id number]. [facility] Data - [id number]. Gen [facility] F15 6.2i11w21 - [id number] - [id number] Implanted:Qty: 1 on 05/14/2023 by Caroline Hatfield D.O. at [facility] Nguyen/Gonda Sacral Nerve Stimulator N/A: Back [employer] 01/22/2024 4101 / [id number] / Kt Piper Ld Str Crv Stylt Snm - [id number] - [id number] Implanted:Qty: 1 on 05/14/2023 by Caroline Hatfield D.O. at [facility] Nguyen/Gonda Sacral Nerve Stimulator N/A: Back [employer] 10/04/2025 1201 / [id number] / Prgrmr Pt Rem Ctrl Snm - [id number] - [id number] Implanted:Qty: 1 on 05/14/2023 by Caroline Hatfield D.O. at [facility] Nguyen/Tesoraa Sacral Nerve Stimulator N/A: Back [employer] 05/22/2033 2301 / [id number] / Procedures Procedure Name Priority Date/Time Associated Diagnosis Comments C. DIFFICILE TOXIN PCR, F Routine 10/22/2023 1:15 PM CDT Crohn's Disease (HCC) Diarrhea C. DIFFICILE TOXIN PCR, F Routine 09/07/2023 9:09 AM CDT Diarrhea CREATININE WITH EGFR, S/P Routine 06/12/2023 9:37 AM CNC LATHE MACHINIST Ileitis Crohn's (HCC) BASIC METABOLIC PANEL, S/P Routine 05/01/2023 2:55 PM CNC LATHE MACHINIST Preanesthetic Medical Exam COLONOSCOPY Routine 05/15/2022 10:57 AM CNC LATHE MACHINIST Crohn's Disease (HCC) Infection Urinary Tract Recurrent BI BREAST SCREENING BILATERAL Routine 03/04/2014 1:57 PM CDT from Last 3 Months or Most Recently Relevant to Health Maintenance Results * (ABNORMAL) Clostridioides (Clostridium) Difficile Toxin, Molecular Detection, PCR, Feces (10/22/2023 1:15 PM CDT) Only the most recent of2 resultswithin the time period is included. C. difficile Toxin, F Positive( A) Negative 10/24/2023 2:43 PM CDT DTL Semi-Urgent This is a semi-urge nt result(MCCULLOUGH ) [facility] Stool (Stool) 10/22/2023 1:1 5 PM CDT 10/24/2023 1:34 PM CDT Erica Nguyen M.D. LAB MICROBIOLOGY - GENERAL ORDERABLES Performing Organization Address [facility] Co de Phone Number [facility] 200 [place], [place] [id number] [place] [address] DTL [facility] 200 [place] [address] * Creatinine with Estimated GFR (06/12/2023 9:37 AM CNC LATHE MACHINIST) Creatinine 0.90 0.59 - 1.04 mg/dL 06/12/2023 11:03 AM CNC LATHE MACHINIST DTL Estimated GFR (eGFR) 70 >=60 mL/min/BSA 06/12/2023 11:03 AM CNC LATHE MACHINIST DTL Comment: Estimated GFR calculated using the 2020 CKD_EPI creatinine equation. Blood (Blood, Venous) 06/12/2023 9:37 AM CNC LATHE MACHINIST 06/12/2023 10:22 AM CNC LATHE MACHINIST Gali Porter M.D. LAB BLOOD ADD-ON Performing Organization Address [facility] Co de Phone Number [facility] 200 [place] [address], [facility] DTL [facility] 200 [place] [address] * (ABNORMAL) Basic Metabolic Panel (05/01/2023 2:55 PM CNC LATHE MACHINIST) Potassium, S 4.1 3.6 - 5.2 mmol/L 05/01/2023 3:48 PM CNC LATHE MACHINIST DTL Sodium, S 140 135 - 145 mmol/L 05/01/2023 3:48 PM CNC LATHE MACHINIST DTL Chloride, S 104 98 - 107 mmol/L 05/01/2023 3:48 PM CNC LATHE MACHINIST DTL Bicarbonate, S 24 22 - 29 mmol/L 05/01/2023 3:48 PM CNC LATHE MACHINIST DTL Anion Gap 12 7 - 15 05/01/2023 3:48 PM CNC LATHE MACHINIST DTL BUN (Blood Urea Nitrogen), S 15 6 - 21 mg/dL 05/01/2023 3:48 PM CNC LATHE MACHINIST DTL Creatinine 1.14(H) 0.59 - 1.04 mg/dL 05/01/2023 3:48 PM CNC LATHE MACHINIST DTL Estimated GFR (eGFR) 52(L) >=60 mL/min/BSA 05/01/2023 3:48 PM CNC LATHE MACHINIST DTL Comment: Estimated GFR calculated using the 2020 CKD_EPI creatinine equation. Calcium, Total, S 9.1 8.8 - 10.2 mg/dL 05/01/2023 3:48 PM CNC LATHE MACHINIST DTL Glucose, S 137 70 - 140 mg/dL 05/01/2023 3:48 PM CNC LATHE MACHINIST DTL Blood (Blood, Venous) 05/01/2023 2:55 PM CNC LATHE MACHINIST 05/01/2023 3:27 PM CNC LATHE MACHINIST India Lincoln APRNNRosalia, M.S.N. LA B BLOOD ADD-ON [facility] 200 [place] [address], [facility] 200 [place] [address] * BI Breast Screening Bilateral (03/04/2014 1:57 [...] Recently Relevant to Health Maintenance Care Teams Poultry Cutter Relationship Specialty Start Date End Date Elsewhere, Pcp PCP - General Internal Medicine 05/02/23
--- OUTSIDE RECORDS SUMMARY | 2023-10-24 22:11 | XMS_ITS | Encounter Summary ---
Author Name Unknown Organization [facility] Address [address] [place] [address] Care Team Providers Care Communications Specialist Name Role Phone Elsewhere, Pcp Primary Care Provider Unavailabl e Reason for Visit * Reason Onset Date Comments Inflammatory Bowel Disease 08/29/2023 C.Dif f Testing Encounter Details Date Type Department Care Team (Latest Contact Info) Description 08/29/2023 Clinical Communication Division of Gastroenterology in [place], [place] [address] [place] [address] Erica Nguyen M.D. [address] [place] [phone] Inflammatory Bowel Disease (C.Diff Testing) Social History [...] any clubs o r organizations such as adventist groups, unions, fraternal or [...] and heating? Not hard at all 07/10/2022 [facility] of Occupat ional Health - Occupational [...] Information Discussed Returned call to Dorothy at [facility] (ph: [phone]) to discuss patient's upcoming infliximab infusion scheduled [...] AM CDT Clinical Communication Virtual Review in [place], [place] 200 [place] [address] 12/09/2023 8:50 AM CDT Appointment Department of Laboratory Medicine and Pathology, [facility] in [address] [phone] Caroline Hatfield D.O. [address] [place] [phone] 12/09/2023 11:00 AM CDT Procedure visit Department of Urology in [address] [phone] Caroline Hatfield D.O. [address] [place] [phone] 12/09/2023 3:00 PM CDT Office Visit Department of Urology in [address] [phone] Caroline Hatfield D.O. [address] [place] [phone] documented as of this encounter Results * (ABNORMAL) Clostridioides (Clostridium) Difficile Toxin, Molecular Detection, PCR, Feces (09/07/2023 9:09 AM CDT) C. difficile Toxin, F Positive( A) Negative 09/07/2023 10:50 AM CDT DTL Semi-Urgent This is a semi-urge nt result(MCCULLOUGH ) [facility] [place] Stool (Stool) 09/07/2023 9:0 9 AM CDT 09/07/2023 9:51 AM CDT Narrative Resulting Agency Comment Unable to Determine Date and Time of Collection Erica Nguyen M.D. LAB MICROBIOLOGY - GENERAL ORDERABLES [facility] [place] [address] [place] [address], [facility] [address] [place] [address] documented in this encounter Visit Diagnoses Diagnosis Diarrhea- Primary documented in this encounter Care Teams Communications Specialist Relationship Specialty Start Date End Date Elsewhere, Pcp PCP - General Internal Medicine 05/02/23 documented as of this encounter
--- OUTSIDE RECORDS SUMMARY | 2023-10-24 22:11 | XMS_ITS | Encounter Summary ---
Author Name Unknown Organization [facility] Address [address] [place] [address] Care Team Providers Care Water Commissioner Name Role Phone Elsewhere, Pcp Primary Care Provider Unavailabl e Encounter Details Date Type Department Care Team (Late st Contact Info) Description 08/18/2023 Orders Only Division of Gastroenterology in [place], [place] [address] [place] [phone] Rahul Fam M.D. [address] [place] [address] Genetic Susceptibility To Disease Social History Tobacco [...] week 07/10/2022 How often do you attend [facility] or nondenominational services? Patient declined 07/10/2022 Do you belong to any clubs o r organizations such as presybeterian groups, unions, fraternal or [...] and heating? Not hard at all 07/10/2022 [facility] of Occupat ional Health - [...] slept in a senior living (including now)? No 07/10/2022 Nutrition Answer Date [...] AM CDT Clinical Communication Virtual Review in [place], [place] [address] [place] [address] 12/09/2023 8:50 AM CDT Appointment Department of Laboratory Medicine and Pathology, [facility], in [place], [place] [address] [place] [address] Caroline Hatfield D.O. [address] [place] [phone] 12/09/2023 11:00 AM CDT Procedure visit Department of Urology in [place], [place] [address] [place] [address] Caroline Hatfield D.O. [address] [place] [phone] 12/09/2023 3:00 PM CDT Office Visit Department of Urology in [place], [place] [address] [place] [address] Caroline Hatfield D.O. [address] [place] [phone] documented as of this encounter Procedures Procedure [...] enriched using a custom set of reagents (Vuzix+ chemistry). Targeted regions were sequenced using an Illumina DNA sequencing system. Your sequence was matched to a modified version of the industry standard reference genome (GRCh38). Variant calling was completed using a customized version of evOLED's Artaic software, requiring 20x coverage for validated variant calls. Copy Number Variants (CNVs) were called using a proprietary bioinformatics pipeline that compared the coverage profile of your sample with the coverage profiles of other reference set samples. [facility] [email or web address] then analyzed the generated variant data for the exons and 10 bp of flanking intronic sequence (and select tagged intronic variants) of the 11 genes included in Trailerpop from the Digital Map Products Database. Your sample was reviewed for single [...] and medical management. 12/31/2022 12:00 AM CDT [facility] Human Reference Sequence Assembly GRCh38 12/31/2022 12:00 AM [facility] Saliva (Mouth) 11/26/2022 Rahul Fam M.D. LAB GENETI C TESTING [place] [address], [address] [place] [address], [facility] ZAK [place], [address]. [place] [address] documented in this encounter Visit Diagnoses Diagnosis Genetic Susceptibility To Disease documented in this encounter Care Teams Water Commissioner Relationship Specialty Start Date End Date Elsewhere, Pcp PCP - General Internal Medicine 05/02/23 documented as of this encounter
--- OUTSIDE RECORDS SUMMARY | 2023-10-24 22:11 | XMS_ITS | Encounter Summary ---
Author Name Unknown Organization [facility] Address [address] [place] [address] Care Team Providers Care Elevator Repairer Helper Name Role Phone Elsewhere, Pcp Primary Care Provider Unavailabl e Encounter Details Date Type Department Care Team (Late st Contact Info) Description 03/02/2015 Historical Ophthalmology [facility] Cayetano Chand M.D., Ph.D. [address] [place] [address] Social History Tobacco Use Types Packs/Day Years [...] On February 01, 2015, she saw her program manager, Dr. Liu for evaluation of this. She [...] gland dysfunction CDM Reports - EYEGEN Id: [id number] Status: Fnl documented in this encounter Plan of Treatment Upcoming Encounters Date Type Department Care Team (Latest Contact Info) Description 12/05/2023 10:45 AM CDT Clinical Communication Virtual Review in [place], [place] 200 [place] [address] 12/09/2023 8:50 AM CDT Appointment Department of Laboratory Medicine and Pathology, [facility], in [address] [address] Caroline Hatfield D.OElvis [address] [place] [phone] 12/09/2023 11:00 AM CDT Procedure visit Department of Urology in [address] [address] Caroline Hatfield D.O. [address] [place] [phone] 12/09/2023 3:00 PM CDT Office Visit Department of Urology in [address] [address] Caroline Hatfield D.OElvis [address] [place] [phone] documented as of this encounter Visit Diagnoses Not on filedocumented in this encounter Care Teams Elevator Repairer Helper Relationship Specialty Start Date End Date Elsewhere, Pcp PCP - General Internal Medicine 05/02/23 documented as of this encounter
--- OUTSIDE RECORDS SUMMARY | 2023-10-24 22:11 | XMS_ITS | Referral Summary ---
Author Name Unknown Organization [facility] Address [address] [place] [address] Care Team Providers Care Log Stacker Operator Name Role Phone Elsewhere, Pcp Primary Care Provider Unavailabl e Source Comments Patient records contain information from all sites at [facility]. For routine questions regarding patient records, call [phone] during business hours, M-F 8:00 AM - 5:00 PM Central Time. Record requests for emergency care only can be directed to [phone] at any time.[facility] Encounters Date Type Department Care Team Description 10/24/2023 Orders Only Division of Gastroenterology in [place], [place] [address] [place] [address] Erica Nguyen M.D. 10/24/2023 Clinical Communication Department of Urology in [place], [place] [address] [place] [address] Caroline Hatfield D.O. 10/21/2023 9:39 AM CDT - 10/21/2023 11:59 PM CDT Hospital Encounter Department of Laboratory Medicine and Pathology, [facility], in [place], [place] [address] [place] [address] Erica Nguyen M.D. Crohn's Disease (HCC); Diarrhea Discharge Disposition: Home or Self Care 10/06/2023 Clinical Communication Department of Urology in [place], [place] [address] [place] [address] Caroline Hatfield D.O. 09/11/2023 Clinical Communication Division of Gastroenterology in [place], [place] [address] [place] [address] Erica Nguyen M.D. Nurse Assessment; Inflammatory Bowel Disease (Symptomatic ) 09/02/2023 9:50 AM CDT - 09/02/2023 11:59 PM CDT Hospital Encounter Department of Laboratory Medicine and Pathology, [facility], in [place], [place] [address] [place] [address] Erica Nguyen M.D. Diarrhea Discharge Disposition: Home or Self Care 08/29/2023 Clinical Communication Division of Gastroenterology in [place], [place] [address] [place] [address] Erica Nguyen M.D. Inflammatory Bowel Disease (C.Diff Testing) 08/18/2023 Orders Only Division of Gastroenterology in [place], [place] [address] [place] [address] Rahul Fam M.D. Genetic Susceptibility To Disease [...] Disease 11/07/2009 Atherosclerotic Heart Diseas e Of [place] Coronary Artery Without Angina Pectoris 07/17/2009 Fatty [...] any clubs o r organizations such as latter-day groups, unions, fraWorkFlowy or athletic groups, or school groups? Yes [...] and heating? Not hard at all 07/10/2022 [facility] of Occupat ional Health - [...] or slept in a assisted (including now)? No 07/10/2022 Nutrition Answer Date [...] Comments Blood Pressure 129/67 05/14/2023 1:30 PM BRAND AMBASSADOR PROMOTIONAL MODEL Pulse 69 05/14/2023 1:35 PM BRAND AMBASSADOR PROMOTIONAL MODEL Temperature 36.7 ??C (98.1 ??F) 05/14/2023 12:[address] Respiratory Rate 21 05/14/2023 1:35 PM BRAND AMBASSADOR PROMOTIONAL MODEL Oxygen Saturation 91% 05/14/2023 1:35 PM BRAND AMBASSADOR PROMOTIONAL MODEL Inhaled Oxygen Concentration - - Weight 101 kg (223 lb 5.2 oz) 05/14/2023 9:12 AM BRAND AMBASSADOR PROMOTIONAL MODEL Height 167 cm (5' 5.75) 05/01/2023 3:48 PM BRAND AMBASSADOR PROMOTIONAL MODEL Body Mass Index 36.32 05/01/2023 3:48 PM BRAND AMBASSADOR PROMOTIONAL MODEL Plan of Treatment Upcoming Encounters Date Type Department Care Team (Latest Contact Info) Description 12/05/2023 10:45 AM CDT Clinical Communication Virtual Review in [place], [place] 200 [place] [address] 12/09/2023 8:50 AM CDT Appointment Department of Laboratory Medicine and Pathology, [facility] in [place], [place] [address] [place] [phone] Caroline Hatfield D.O. [address] [place] [phone] 12/09/2023 11:00 AM CDT Procedure visit Department of Urology in [address] [address] Caroline Hatfield D.O. [address] [place] [phone] 12/09/2023 3:00 PM CDT Office Visit Department of Urology in [address] [address] Caroline Hatfield D.O. [address] [place] [phone] Medical Devices Implanted Type Area Physical Education Aide Device Identifier Shelf Expiration Date Model / Serial / Lot Hardware E.G. Pins/Screws/Lloyd s Hardware e.g. pins/screws/r ods Scalp Nevaeh-Screw 1.5x 4mm - Muñiz [id number] Implanted:Qty: 3 on 04/20/2012 Hardware e.g. pins/screws/r ods Nevaeh Description:Device Manufactu rer - Nevaeh Florina.. Device Status Text - [id number]. [place]-Mesh 90x90x.6mm(Gold ) - Muñiz [id number] Implanted:Qty: 1 on 04/20/2012 Hardware e.g. pins/screws/r ods [place] Description:Device Manufactu rer - Nevaeh Florina.. Device Status Text - [id number]. Knee Implant- 6 Implanted:11/21 (Quantity not on file) Knee Implant Left: Knee Knee Implant- 6 Implanted:11/21 (Quantity not on file) Knee Implant Right: Knee [place] Richard Fuzzy 1 X 1 - Muñiz [id number] Implanted:Qty: 1 on 04/20/2012 Mesh or Patch exoro system Description:Device Manufactu Sidewalk. Device Status Text - [id number]. [facility] Data - [id number]. Gen Nrs F15 [id number] - [id number] - [id number] Implanted:Qty: 1 on 05/14/2023 by Caroline Hatfield D.O. at [facility] Nguyen/[employer] Sacral Nerve Stimulator N/A: Back Axon140 [employer], Inc 01/22/2024 4101 / [id number] / Kt Piper Ld Str Crv Stylt Sn - [id number] - [id number] Implanted:Qty: 1 on 05/14/2023 by Caroline Hatfield DElvisOElvis at [facility] Nguyen/[employer] Sacral Nerve Stimulator N/A: Back Axonics Modulation [employer], Inc 10/04/2025 1201 / [id number] / Prgrmr Pt Rem Ctrl Sn - [id number] - [id number] Implanted:Qty: 1 on 05/14/2023 by Caroline Hatfield D.OElvis at [facility] Nguyen/[employer] Sacral Nerve Stimulator N/A: Back Axonics Modulation Technologies, Inc 05/22/2033 2301 / [id number] / Procedures Procedure Name Priority Date/Time Associated Diagnosis Comments C. DIFFICILE TOXIN PCR, F Routine 10/22/2023 1:15 PM CDT Crohn's Disease (HCC) Diarrhea C. DIFFICILE TOXIN PCR, F Routine 09/07/2023 9:09 AM CDT Diarrhea CREATININE WITH EGFR, S/P Routine 06/12/2023 9:37 AM BRAND AMBASSADOR PROMOTIONAL MODEL Ileitis Crohn's (HCC) BASIC METABOLIC PANEL, S/P Routine 05/01/2023 2:55 PM BRAND AMBASSADOR PROMOTIONAL MODEL Preanesthetic Medical Exam COLONOSCOPY Routine 05/15/2022 10:57 AM BRAND AMBASSADOR PROMOTIONAL MODEL Crohn's Disease (HCC) Infection Urinary Tract Recurrent [...] This is a semi-urge nt result(MCCULLOUGH ) [facility] Stool (Stool) 10/22/2023 1:1 5 PM CDT 10/24/2023 1:34 PM CDT Erica Nguyen M.D. LAB MICROBIOLOGY - GENERAL ORDERABLES [facility] [address] [place] [address], [facility] DTL [facility] [address] [place] [address] * Creatinine with Estimated GFR (06/12/2023 9:37 AM BRAND AMBASSADOR PROMOTIONAL MODEL) Creatinine 0.90 0.59 - 1.04 mg/dL 06/12/2023 11:03 AM BRAND AMBASSADOR PROMOTIONAL MODEL DTL Estimated GFR (eGFR) 70 >=60 mL/min/BSA 06/12/2023 11:03 AM BRAND AMBASSADOR PROMOTIONAL MODEL DTL Comment: Estimated GFR calculated using the 2020 CKD_EPI creatinine equation. Blood (Blood, Venous) 06/12/2023 9:37 AM BRAND AMBASSADOR PROMOTIONAL MODEL 06/12/2023 10:22 AM BRAND AMBASSADOR PROMOTIONAL MODEL Gali Porter M.D. LAB BLOOD ADD-ON [facility] [address] [place] [address], [facility] DTL [facility] [address] [place] [address] * (ABNORMAL) Basic Metabolic Panel (05/01/2023 2:55 PM BRAND AMBASSADOR PROMOTIONAL MODEL) Potassium, S 4.1 3.6 - 5.2 mmol/L 05/01/2023 3:48 PM BRAND AMBASSADOR PROMOTIONAL MODEL DTL Sodium, S 140 135 - 145 mmol/L 05/01/2023 3:48 PM BRAND AMBASSADOR PROMOTIONAL MODEL DTL Chloride, S 104 98 - 107 mmol/L 05/01/2023 3:48 PM BRAND AMBASSADOR PROMOTIONAL MODEL DTL Bicarbonate, S 24 22 - 29 mmol/L 05/01/2023 3:48 PM BRAND AMBASSADOR PROMOTIONAL MODEL DTL Anion Gap 12 7 - 15 05/01/2023 3:48 PM BRAND AMBASSADOR PROMOTIONAL MODEL DTL BUN (Blood Urea Nitrogen), S 15 6 - 21 mg/dL 05/01/2023 3:48 PM BRAND AMBASSADOR PROMOTIONAL MODEL DTL Creatinine 1.14(H) 0.59 - 1.04 mg/dL 05/01/2023 3:48 PM BRAND AMBASSADOR PROMOTIONAL MODEL DTL Estimated GFR (eGFR) 52(L) >=60 mL/min/BSA 05/01/2023 3:48 PM BRAND AMBASSADOR PROMOTIONAL MODEL DTL Comment: Estimated GFR calculated using the 2020 CKD_EPI creatinine equation. Calcium, Total, S 9.1 8.8 - 10.2 mg/dL 05/01/2023 3:48 PM BRAND AMBASSADOR PROMOTIONAL MODEL DTL Glucose, S 137 70 - 140 mg/dL 05/01/2023 3:48 PM BRAND AMBASSADOR PROMOTIONAL MODEL DTL Blood (Blood, Venous) 05/01/2023 2:55 PM BRAND AMBASSADOR PROMOTIONAL MODEL 05/01/2023 3:27 PM BRAND AMBASSADOR PROMOTIONAL MODEL Benita Barber APRN, C.N.P., M.S.N. SHRUTI Stone BLOOD ADD-ON [facility] [address] [place] [address], [place] DTL [facility] [address] [place] [address] * BI Breast Screening Bilateral (03/04/2014 1:57 PM CDT) Anatomical Region Laterality Modality Breast Bilateral Mammography 03/04/2014 1:57 PM CDT Impressions 03/07/2014 11:02 AM CDT NEGATIVE There is no mammographic evidence of malignancy. ?? RECOMMENDATION: A 1 year screening mammogram is recommended. ?? The patient will receive a letter notifying her of the results. ?? eJsus Pisano M.D. ? rtf/penrad:03/07/2014 11:00:58 ?? letter [...] Recently Relevant to Health Maintenance Care Teams Log Stacker Operator Relationship Specialty Start Date End Date Elsewhere, Pcp PCP - General Internal Medicine 05/02/23
--- OUTSIDE RECORDS SUMMARY | 2023-10-24 22:11 | XMS_ITS | Encounter Summary ---
Author Name Unknown Organization [facility] Address [address] [place] [address] Care Team Providers Care Pipe Racker Name Role Phone Elsewhere, Pcp Primary Care Provider Unavailabl e Reason for Visit * Reason Onset Date Comments Nurse Assessment 09/11/2023 Inflammatory Bowel Disease 09/11/2023 Sympt omatic Encounter Details Date Type Department Care Team (Latest Contact Info) Description 09/11/2023 Clinical Communication Division of Gastroenterology in [place], [place] [address] [place] [address] Danna Henry M.D. [address] [place] [address] Nurse Assessment; Inflammatory Bowel Disease (Symptomatic ) Social History Tobacco Use Types Packs/Day Years [...] How often do you attend chur or samaritan services? Patient declined 07/10/2022 Do you belong to any clubs o r organizations such as jainism groups, unions, fraOMsignal or athletic groups, or school groups? Yes [...] and heating? Not hard at all 07/10/2022 [facility] of Occupat ional Health - Occupational [...] Addendum Note - Danna Henry M.D. - 10/24/2023 9:02 AM CDTAddended by: DANNA HENRY on: 10/24/2023 09:02 AM Modules accepted: Orders * Addendum Note - Tracy Kidd R.N. - 10/23/2023 12:26 PM CDTAddended by: TRACY KIDD on: 10/23/2023 12:26 PM Modules accepted: Orders * Telephone Encounter - Tracy Kidd R.N. - 10/23/2023 11:00 AM CDT SUBJECTIVE CHIEF COMPLAINT / REASON FOR CALL Nurse Assessment and Inflammatory Bowel Disease (Symptomatic ) ASSESSMENT Patient presented to local emergency department last night for recurrent symptoms of C.Diff infection including diarrhea with mucous and blood. The emergency department did not test for C.Diff but did prescribe patient a 14 day course of vancomycin and administered the first dose last night. Patient is also awaiting urine culture results from the emergency department to see if she has a UTI. Patient also had low potassium at the ED (value 2.8) and was given oral replacement. Patient expressed frustration with recurrent UTIs along with her ongoing diarrhea. Patient wonderedif her recurrent UTIs and antibiotic use could contribute to her diarrhea and C.Diff infection concerns. RN discussed with patient that antibiotic use can increase risk for C.Diff infection. [employer] is picking up patient's C.Diff stool test today; discussed with patient that we will await those results. Discussed with patient that in the meantime, RN will share with Dr. Henry that patient presented to local ED last night and was prescribed vancomycin. PLAN Will share with Dr. Henry for recommendations. Disposition/Recommendation: notified provider and awaiting recommendations. Information/Education: patient/caller able to teach back. Caller agreeable to plan of care: yes. The following references were used: nursing clinical judgement. * Addendum Note - Danna Henry M.D. - 10/21/2023 8:10 AM CDTAddended by: DANNA HENRY on: 10/21/2023 08:10 AM Modules accepted: Orders * Addendum Note - Mitch Arteaga RJem. - 10/21/2023 7:49 AM CDTAddended by: MITCH ARTEAGA on: 10/21/2023 07:49 AM Modules accepted: Orders documented in this encounter Plan of Treatment Upcoming Encounters Date Type Department Care Team (Latest Contact Info) Description 12/05/2023 10:45 AM CDT Clinical Communication Virtual Review in [place], [place] 200 [place] [address] 12/09/2023 8:50 AM CDT Appointment Department of Laboratory Medicine and Pathology, [facility], in [place], [place] [address] [place] [phone] Caroline Hatfield D.O. [address] [place] [phone] 12/09/2023 11:00 AM CDT Procedure visit Department of Urology in [address] [address] Caroline Hatfield D.O. [address] [place] [phone] 12/09/2023 3:00 PM CDT Office Visit Department of Urology in [place], [place] [address] [place] [phone] Caroline Hatfield D.O. [address] [place] [phone] documented as of this encounter Results * (ABNORMAL) Clostridioides (Clostridium) Difficile Toxin, Molecular Detection, PCR, Feces (10/22/2023 1:15 PM CDT) C. difficile Toxin, F Positive( A) Negative 10/24/2023 2:43 PM CDT DTL Semi-Urgent This is a semi-urge nt result(MCCULLOUGH ) [facility] Stool (Stool) 10/22/2023 1:1 5 PM CDT 10/24/2023 1:34 PM CDT Danna Henry M.D. LAB MICROBIOLOGY - GENERAL ORDERABLES [facility] [address] [place] [address], [facility] [address] [place] [address] documented in this encounter Visit Diagnoses Diagnosis Crohn's Disease (HCC)- Primary Diarrhea documented in this encounter Care Teams Pipe Racker Relationship Specialty Start Date End Date Elsewhere, Pcp PCP - General Internal Medicine 05/02/23 documented as of this encounter
--- OUTSIDE RECORDS SUMMARY | 2023-10-24 22:11 | XMS_ITS ---
Author Name Unknown Organization [facility] Address [address] [place] [address] Care Team Providers Care Hurricane Tracker Name Role Phone Unavailable Unavailable Unavailable Surgery Details Not on file Complications Check Surgery Details section. Procedure Estimated Blood Loss Check Surgery Details section. Procedure Findings Check Surgery Details section. Procedure Specimens Taken Check Surgery Details section.
--- OUTSIDE RECORDS SUMMARY | 2023-10-24 22:11 | XMS_ITS | Encounter Summary ---
Author Name Unknown Organization [facility] Address [address] [place] [address] Care Team Providers Care Equipment Analyst Name Role Phone Elsewhere, Pcp Primary Care Provider Unavailabl e Encounter Details Date Type Department Care Team (Latest Contact Info) Description 09/02/2023 9:50 AM CDT - 09/02/2023 11:59 PM CDT Hospital Encounter Department of Laboratory Medicine and Pathology, [facility] in [place], [place] [address] [place] [address] Erica Nguyen M.D. [address] [place] [phone] Diarrhea Discharge Disposition: Home or Self Care [...] How often do you attend chur or druze services? Patient declined 07/10/2022 Do you belong to any clubs o r organizations such as jewish groups, unions, fraShoop or athletic groups, or school groups? Yes [...] and heating? Not hard at all 07/10/2022 [facility] of Occupat ional Health - Occupational Stress [...] AM CDT Clinical Communication Virtual Review in [place], [place] 200 [place] [address] 12/09/2023 8:50 AM CDT Appointment Department of Laboratory Medicine and Pathology, [facility], in [place], [place] [address] [place] [phone] Caroline Hatfield D.O. [address] [place] [phone] 12/09/2023 11:00 AM CDT Procedure visit Department of Urology in [place], [place] [address] [place] [phone] Caroline Hatfield D.O. [address] [place] [phone] 12/09/2023 3:00 PM CDT Office Visit Department of Urology in [address] [phone] Caroline Hatfield D.O. [address] [place] [phone] documented as of this encounter Procedures Procedure Name Priority Date/Time Associated Diagnosis Comments C. DIFFICILE TOXIN PCR, F Routine 09/07/2023 9:09 AM CDT Diarrhea documented in this encounter Results * (ABNORMAL) Clostridioides (Clostridium) Difficile Toxin, Molecular Detection, PCR, Feces (09/07/2023 9:09 AM CDT) C. difficile Toxin, F Positive( A) Negative 09/07/2023 10:50 AM CDT DTL Semi-Urgent This is a semi-urge nt result(MCCULLOUGH ) [facility] Stool (Stool) 09/07/2023 9:0 9 AM CDT 09/07/2023 9:51 AM CDT Narrative Resulting Agency Comment Unable to Determine Date and Time of Collection Erica Nguyen M.D. LAB MICROBIOLOGY - GENERAL ORDERABLES [facility] [address] [place] [address], [facility] 200 [place] [address] documented in this encounter Visit Diagnoses Diagnosis Diarrhea documented in this encounter Care Teams Equipment Analyst Relationship Specialty Start Date End Date Elsewhere, Pcp PCP - General Internal Medicine 05/02/23 documented as of this encounter
--- OUTSIDE RECORDS SUMMARY | 2023-10-24 22:11 | XMS_ITS | Encounter Summary ---
Author Name Unknown Organization [facility] Address [address] [place] [address] Care Team Providers Care Firer Boiler Name Role Phone Elsewhere, Pcp Primary Care Provider Unavailabl e Reason for Visit * Reason Onset Date Comments IFX trough/C diff 07/01/2023 Encounter Details Date Type Department Care Team (Latest Contact Info) Description 07/01/2023 Clinical Communication Division of Gastroenterology in [place], [place] [address] [place] [phone] Erica Nguyen M.D. [address] [place] [phone] IFX trough/C diff Social History Tobacco Use [...] How often do you attend chur or jehovah's witness services? Patient declined 07/10/2022 Do you belong [...] and heating? Not hard at all 07/10/2022 [facility] of Occupat ional Health - [...] or slept in a chcf (including now)? No 07/10/2022 Nutrition Answer Date [...] AM CDT Clinical Communication Virtual Review in [place], [place] [address] [place] [address] 12/09/2023 8:50 AM CDT Appointment Department of Laboratory Medicine and Pathology, [facility], in [place], [place] [address] [place] [address] Caroline Hatfield D.O. [address] [place] [phone] 12/09/2023 11:00 AM CDT Procedure visit Department of Urology in [place], [place] [address] [place] [phone] Caroilne Hatfield D.O. [address] [place] [phone] 12/09/2023 3:00 PM CDT Office Visit Department of Urology in [place], [place] [address] [place] [address] Caroline Hatfield D.O. [address] [place] [phone] documented as of this encounter Visit Diagnoses Diagnosis Crohn's Disease (HCC)- Primary documented in this encounter Care Teams Firer Boiler Relationship Specialty Start Date End Date Elsewhere, Pcp PCP - General Internal Medicine 05/02/23 documented as of this encounter
--- OUTSIDE RECORDS SUMMARY | 2023-10-24 22:11 | XMS_ITS | Encounter Summary ---
Author Name Unknown Organization [facility] Address [address] [place] [address] Care Team Providers Care Trucking Manager Name Role Phone Elsewhere, Pcp Primary Care Provider Unavailabl e Encounter Details Date Type Department Care Team (Late st Contact Info) Description 10/24/2023 Orders Only Division of Gastroenterology in [place], [place] [address] [place] [phone] Erica Nguyen M.D. [address] [place] [address] Social History Tobacco Use Types Packs/Day Years [...] week 07/10/2022 How often do you attend [facility] or evangelical services? Patient declined 07/10/2022 Do you belong to any clubs o r organizations such as buddhism groups, unions, fraternal or [...] AM CDT Clinical Communication Virtual Review in [place], [place] [address] [place] [address] 12/09/2023 8:50 AM CDT Appointment Department of Laboratory Medicine and Pathology, [facility], in [place], [place] [address] [place] [phone] Carolnie Hatfield D.O. [address] [place] [phone] 12/09/2023 11:00 AM CDT Procedure visit Department of Urology in [place], [place] [address] [place] [address] Caroline Hatfield D.O. [address] [place] [phone] 12/09/2023 3:00 PM CDT Office Visit Department of Urology in [place], [place] [address] [place] [address] Caroline Hatfield D.O. [address] [place] [phone] documented as of this encounter Visit Diagnoses Not on filedocumented in this encounter Care Teams Trucking Manager Relationship Specialty Start Date End Date Elsewhere, Pcp PCP - General Internal Medicine 05/02/23 documented as of this encounter
--- OUTSIDE RECORDS SUMMARY | 2023-10-24 22:11 | XMS_ITS | Encounter Summary ---
Author Name Unknown Organization [facility] Address [address] [place] [address] Care Team Providers Care Talent Coordinator Name Role Phone Elsewhere, Pcp Primary Care Provider Unavailabl e Encounter Details Date Type Department Care Team (Late st Contact Info) Description 10/24/2023 Clinical Communication Department of Urology in [place], [place] [address] [place] [phone] Caroline Hatfield D.O. [address] [place] [address] Social History Tobacco Use Types Packs/Day Years [...] week 07/10/2022 How often do you attend [facility] or yarsani services? Patient declined 07/10/2022 Do you belong to any clubs o r organizations such as judaism groups, unions, fraternal or [...] and heating? Not hard at all 07/10/2022 [facility] of Occupat ional Health - Occupational [...] a [place] [facility] (including now)? No 07/10/2022 Nutrition Answer Date [...] AM CDT Clinical Communication Virtual Review in [place], [place] [address] [place] [address] 12/09/2023 8:50 AM CDT Appointment Department of Laboratory Medicine and Pathology, [facility], in [place], [place] [address] [place] [phone] Caroline Hatfield D.O. [address] [place] [phone] 12/09/2023 11:00 AM CDT Procedure visit Department of Urology in [place], [place] [address] [place] [address] Caroline Hatfield D.O. [address] [place] [phone] 12/09/2023 3:00 PM CDT Office Visit Department of Urology in [place], [place] [address] [place] [address] Caroline Hatfield D.O. [address] [place] [phone] documented as of this encounter Visit Diagnoses Not on filedocumented in this encounter Care Teams Talent Coordinator Relationship Specialty Start Date End Date Elsewhere, Pcp PCP - General Internal Medicine 05/02/23 documented as of this encounter
--- OUTSIDE RECORDS SUMMARY | 2023-10-24 22:12 | XMS_ITS | Clinical Summary ---
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 [...] Department Care Team Description 09/09/2023 Orders Only [facility] Scanner 1 scan: (1-Ord) [facility], LAB RESULTS, 09/09/2023 08/05/2023 Orders Only [facility] Scanner 1 scan: (1-Ord) [facility], INFLIXIMAB ACT, 08/05/2023 from Last 3 [...] T Respiratory Rate 18 06/25/2021 11:15 AM SUIT ATTENDANT Oxygen Saturation 96% 12/05/2021 1:46 PM CDT [...] AM CDT SCAN-LABORATORY REPORT 08/05/2023 12:00 AM SUIT ATTENDANT SCAN-COLONOSCOPY 05/15/2022 12:0 0 AM SUIT ATTENDANT SCAN-MAMMOGRAPHY REPORT 03/04/2014 12:00 AM CDT from Last 3 Months or Most Recently Relevant to Health Maintenance Results * SCAN-LABORATORY REPORT (09/09/2023 12:00 AM CDT) Only the most recent of2 resultswithin the time period is included. Scanner OTHER * SCAN-COLONOSCOPY (05/15/2022 12:00 AM SUIT ATTENDANT) Scanner OTHER * SCAN-MAMMOGRAPHY REPORT (03/04/2014 12:00 AM CDT) Anatomical Region Laterality Modality Other Scanner OTHER from Last 3 Months or Most Recently Relevant to Health Maintenance Care Teams Steward/Stewardess Tourist Class Relationship Specialty Start Date End Date Hansa Doty MD [address] [place] [address] PCP - General Internal Medicine 07/15/16
--- OUTSIDE RECORDS SUMMARY | 2023-10-24 22:12 | XMS_ITS | Continuity of Care Document ---
Author Name Unknown Organization [facility] Address [address] [address] [place] [address] Phone Care Team Providers Care Magnetic Observer Name Role Phone Unavailable Unavailable Unavailable Allergies, [...] Diagnoses Date Provider Providers Copied on Encounter [facility], [address] [address], [place], [id number], [place] tel:[phone] [facility] No Information 7 No Information Offic/outpt E&m Estab Low-mod [facility], [address] [address], [place], [id number], [place] tel:[phone] [facility] Crohn's Ileitis 7 No Information Referring Provider: Louann Hawthorne, [address] [facility] [address], [place], [address]. tel:[phone] [facility], [address] [address], [place], [id number], [place] tel:[phone] [facility] No Information 7 No Information Offic/outpt E&m Estab Mod-hi 2 [facility], [address] [address], [place], [id number], [place] tel:[phone] [facility] Crohn's Ileitis 7 No Information Referring Provider: Louann Hawthorne, [address] [facility] [address], [place], [address]. tel:[phone] [facility], [address] [address], [place], [id number], [place] tel:[phone] [facility] Crohn's Ileitis 7 No Information Referring Provider: Louann Hawthorne, [address] [facility] [address], [place], [address]. tel:[phone] [facility], [address] [address], [place], [id number], [place] tel:[phone] [facility] Crohn's Ileitis 7 No Information Referring Provider: Louann Morocho MD [place], [address] [facility] [address], [place], [address]. tel:[phone] Offic/outpt E&m Estab Mod-hi 2 [facility], [address] [address], [place], [id number], [place] tel:[phone] [facility] Crohn's Ileitis 8200 7 No Information Referring Provider: Louann Hawthorne, [address] [facility] [address], [place], [address]. tel:[phone] Offic/outpt E&m Estab Low-mod [facility], [address] [address], [place], [id number], [place] tel:[phone] [facility] Crohn's IleitisDiarrheaA bdominal Pain, Unspecified 3200 7 No Information Referring Provider: Louann Hawthorne, [address] [facility] [address], [place], [address]. tel:[phone] [facility], [address] [address], [facility] [place], [id number], [place] tel:[phone] [facility] Colon Cancer ScreeningHemorrh oids Nos 6 No Information Referring Provider: Louann Hawthorne, [address] [facility] [address], [place], [address]. tel:[phone] Offic/outpt E m Estab Low [facility], [address] [address], [facility] [place], [id number], [place] tel:[phone] [facility] Crohn's small/large intestine 8200 6 No Information Referring Provider: Louann Hawthorne, [address] [facility] [address], [place], [address]. tel:[phone] [facility], [address] [address], [facility] [place], [id number], [place] tel:[phone] [facility] Sep-0 5200 6 No Information Referring Provider: Louann Hawthorne, [address] [facility] [address], [place], [address]. tel:[phone] Family History Family Member Type Diagnosis Age [...]
[2023-10-24 22:59] LABS: Potassium* 3.2 mmol/L (3.6-5.1)
== END 2023-10-24 22:09 | disposition home or self-care (01) ==
LOC: NPINS 22:08
PROVIDERS: PCP Internal Medicine; Visit Provider Internal Medicine
DX: R19.7 Diarrhea, unspecified (principal)
CPT/HCPCS: 84132

== ENCOUNTER 2023-10-28 13:34 | Outpatient (CLI) | payer MEDICARE, BC, SELFPAY ==
--- OUTSIDE RECORDS SUMMARY | 2023-10-28 13:36 | XMS_ITS | Clinical Summary ---
Author Name Unknown Organization [employer] Address [place], [place] [address] Care Team Providers Care Dealer Sales Rep Name Role Phone Hansa Doty MD Primary Care Provider [phone] Allergies Active Allergy Reactions Criticality Noted Date [...] 09/18/2016 Active Phenol (CASTELLANI PAINT) 1.5 % liqdIndications:Import/Export Specialist hn's disease of small intestine without [...] by mouth once daily. 0 09/18/2016 Active Abya-Megnihhkv-Pymk william-Aldiox (ZEASORB) powdIndications:Import/Export Specialist hn's disease of small intestine without [...] Department Care Team Description 09/09/2023 Orders Only [facility] Scanner 1 scan: (1-Ord) [facility], LAB RESULTS, 09/09/2023 08/05/2023 Orders Only [facility] Scanner 1 scan: (1-Ord) [facility], INFLIXIMAB ACT, 08/05/2023 from Last 3 [...] T Respiratory Rate 18 06/25/2021 11:15 AM TRAVEL INFORMATION CENTER SUPERVISOR Oxygen Saturation 96% 12/05/2021 1:46 PM CDT [...] AM CDT SCAN-LABORATORY REPORT 08/05/2023 12:00 AM TRAVEL INFORMATION CENTER SUPERVISOR SCAN-COLONOSCOPY 05/15/2022 12:0 0 AM TRAVEL INFORMATION CENTER SUPERVISOR SCAN-MAMMOGRAPHY REPORT 03/04/2014 12:00 AM CDT from Last 3 Months or Most Recently Relevant to Health Maintenance Results * SCAN-LABORATORY REPORT (09/09/2023 12:00 AM CDT) Only the most recent of2 resultswithin the time period is included. Scanner OTHER * SCAN-COLONOSCOPY (05/15/2022 12:00 AM TRAVEL INFORMATION CENTER SUPERVISOR) Scanner OTHER * SCAN-MAMMOGRAPHY REPORT (03/04/2014 12:00 AM CDT) Anatomical Region Laterality Modality Other Scanner OTHER from Last 3 Months or Most Recently Relevant to Health Maintenance Care Teams Dealer Sales Rep Relationship Specialty Start Date End Date Hansa Doty MD [address] [place] [address] PCP - General Internal Medicine 07/15/16
--- OUTSIDE RECORDS SUMMARY | 2023-10-28 13:38 | XMS_ITS | Encounter Summary ---
Author Name Unknown Organization [facility] Address [address] [place] [address] Care Team Providers Care Business Administration Instructor Name Role Phone Elsewhere, Pcp Primary Care Provider Unavailabl e Reason for Visit * Reason Onset Date Comments Nurse Assessment 09/11/2023 Inflammatory Bowel Disease 09/11/2023 Sympt omatic Encounter Details Date Type Department Care Team (Latest Contact Info) Description 09/11/2023 Clinical Communication Division of Gastroenterology in [place], [place] [address] [place] [address] Danna Henry M.D. [address] [place] [address] Nurse Assessment; Inflammatory Bowel Disease (Symptomatic ) [...] How often do you attend chur or yazidi services? Patient declined 07/10/2022 Do you belong to any clubs o r organizations such as denominational groups, unions, [facility] or athletic groups, or school groups? Yes [...] AM CDT Clinical Communication Virtual Review in [place], [place] 200 [place] [address] 12/09/2023 8:50 AM CDT Appointment Department of Laboratory Medicine and Pathology, [facility], in [place], [place] [address] [place] [phone] Caroline Hatfield D.O. [address] [place] [phone] 12/09/2023 11:00 AM CDT Procedure visit Department of Urology in [address] [phone] Caroline Hatfield D.O. [address] [place] [phone] 12/09/2023 3:00 PM CDT Office Visit Department of Urology in [place], [place] [address] [place] [phone] Caroline Hatfield D.O. [address] [place] [phone] documented as of this encounter Results * (ABNORMAL) Clostridioides (Clostridium) Difficile Toxin, Molecular Detection, PCR, Feces (10/22/2023 1:15 PM CDT) C. difficile Toxin, F Positive( A) Negative 10/24/2023 2:43 PM CDT DTL Semi-Urgent This is a semi-urge nt result([facility] ) [facility] Stool (Stool) 10/22/2023 1:1 5 PM CDT 10/24/2023 1:34 PM CDT Danna Henry M.D. LAB MICROBIOLOGY - GENERAL ORDERABLES [facility] [address] [place] [address], [facility] [address] [place] [address] documented in this encounter Visit Diagnoses Diagnosis Crohn's Disease (HCC)- Primary Diarrhea documented in this encounter Care Teams Business Administration Instructor Relationship Specialty Start Date End Date Elsewhere, Pcp PCP - General Internal Medicine 05/02/23 documented as of this encounter
--- OUTSIDE RECORDS SUMMARY | 2023-10-28 13:38 | XMS_ITS | Encounter Summary ---
Author Name Unknown Organization [facility] Address [address] [place] [address] Care Team Providers Care Financial Compliance Examiner Name Role Phone Elsewhere, Pcp Primary Care Provider Unavailabl e Encounter Details Date Type Department Care Team (Latest Contact Info) Description 10/21/2023 9:39 AM CDT - 10/21/2023 11:59 PM CDT Hospital Encounter Department of Laboratory Medicine and Pathology, [facility] in [place], [place] [address] [place] [address] Erica Nguyen M.D. [address] [place] [phone] Crohn's Disease (HCC); Diarrhea Discharge Disposition: Home [...] How often do you attend chur or taoist services? Patient declined 07/10/2022 Do you belong [...] and heating? Not hard at all 07/10/2022 [facility] of Occupat ional Health - Occupational Stress [...] AM CDT Clinical Communication Virtual Review in [place], [place] 200 [place] [address] 12/09/2023 8:50 AM CDT Appointment Department of Laboratory Medicine and Pathology, [facility] in [place], [place] [address] [place] [phone] Caroline Hatfield D.O. [address] [place] [phone] 12/09/2023 11:00 AM CDT Procedure visit Department of Urology in [address] [phone] Caroline Hatfield D.O. [address] [place] [phone] 12/09/2023 3:00 PM CDT Office Visit Department of Urology in [place], [place] [address] [place] [phone] Caroline Hatfield D.O. [address] [place] [phone] documented as of this encounter Procedures Procedure [...] This is a semi-urge nt result([facility] ) [facility] Stool (Stool) 10/22/2023 1:1 5 PM CDT 10/24/2023 1:34 PM CDT Erica Nguyen M.D. LAB MICROBIOLOGY - GENERAL ORDERABLES [facility] [address] [place] [address], [facility] 200 [place] [address] documented in this encounter Visit Diagnoses Diagnosis Crohn's Disease (HCC) Diarrhea documented in this encounter Care Teams Financial Compliance Examiner Relationship Specialty Start Date End Date Elsewhere, Pcp PCP - General Internal Medicine 05/02/23 documented as of this encounter
--- OUTSIDE RECORDS SUMMARY | 2023-10-28 13:38 | XMS_ITS | Encounter Summary ---
Author Name Unknown Organization [facility] Address [address] [place] [address] Care Team Providers Care Coastal And Estuary Specialist Name Role Phone Elsewhere, Pcp Primary Care Provider Unavailabl e Encounter Details Date Type Department Care Team (Late st Contact Info) Description 10/24/2023 Orders Only Division of Gastroenterology in [place], [place] [address] [place] [phone] Erica Nguyen M.D. [address] [place] [address] Social History Tobacco Use Types Packs/Day Years [...] week 07/10/2022 How often do you attend [facility] or cheondoism services? Patient declined 07/10/2022 Do you belong to any clubs o r organizations such as buddhist groups, unions, fraternal or [...] and heating? Not hard at all 07/10/2022 [facility] of Occupat ional Health - Occupational [...] or slept in a half-way (including now)? No 07/10/2022 Nutrition Answer Date [...] AM CDT Clinical Communication Virtual Review in [place], [place] [address] [place] [address] 12/09/2023 8:50 AM CDT Appointment Department of Laboratory Medicine and Pathology, [facility], in [place], [place] [address] [place] [phone] Caroline Hatfield D.O. [address] [place] [phone] 12/09/2023 11:00 AM CDT Procedure visit Department of Urology in [place], [place] [address] [place] [address] Caroline Hatfield D.O. [address] [place] [phone] 12/09/2023 3:00 PM CDT Office Visit Department of Urology in [place], [place] [address] [place] [address] Caroline Hatfield D.O. [address] [place] [phone] documented as of this encounter Visit Diagnoses Not on filedocumented in this encounter Care Teams Coastal And Estuary Specialist Relationship Specialty Start Date End Date Elsewhere, Pcp PCP - General Internal Medicine 05/02/23 documented as of this encounter
--- OUTSIDE RECORDS SUMMARY | 2023-10-28 13:38 | XMS_ITS | Encounter Summary ---
Author Name Unknown Organization [facility] Address [address] [place] [address] Care Team Providers Care Manager Of Customer Billing Name Role Phone Elsewhere, Pcp Primary Care Provider Unavailabl e Reason for Referral * Outpatient (Routine) - Authorized Specialty Diagnoses / Procedures Referred By Contac t Referred To Contact Diagnoses Incontinence Urinary Retention Urinary Urgency Urinary Frequency Urinary Procedures URO Uroflow Caroline Hatfield D.O. [address] [place] [phone] [facility] Referral ID Status Reason Start Date Expiration Date V isits Requested Visits Authorized [id number] Authorized 10/06/2023 10/05/2024 1 1 * Outpatient (Routine) - Authorized Specialty Diagnoses / Procedures Referred By Contac t Referred To Contact Urology Caroline Hatfield D.O. [address] [place] [phone] Caroline Hatfield D.O. 200 [place] [address] Referral ID Status Reason Start Date Expiration Date V isits Requested Visits Authorized [id number] Authorized 10/06/2023 04/06/2025 1 1 Encounter Details Date Type Department Care Team (Late st Contact Info) Description 10/06/2023 Clinical Communication Department of Urology in [place], [place] 200 [place] [address] Caroline Hatfield D.O. 200 [place] [address] Social History Tobacco Use Types Packs/Day Years [...] often do you attend chur ch or mu-ism services? Patient declined 07/10/2022 Do you belong [...] and heating? Not hard at all 07/10/2022 [facility] [place] of Occupat ional Health - Occupational Stress [...] AM CDT Clinical Communication Virtual Review in [place], [place] [address] [place] [address] 12/09/2023 8:50 AM CDT Appointment Department of Laboratory Medicine and Pathology, [facility], in [place], [place] [address] [place] [phone] Caroline Hatfield D.O. [address] [place] [address] [place] [address] 12/09/2023 11:00 AM CDT Procedure visit Department of Urology in [place], [place] [address] [place] [address] Caroline Hatfield D.O. 200 [place] [address] 12/09/2023 3:00 PM CDT Office Visit Department of Urology in [place], [place] [address] [place] [address] Caroline Hatfield D.O. [address] [place] [address] Scheduled Orders Name Type Priority Associated Diagnoses [...] Urinary documented in this encounter Care Teams Manager Of Customer Billing Relationship Specialty Start Date End Date Elsewhere, Pcp PCP - General Internal Medicine 05/02/23 documented as of this encounter
--- OUTSIDE RECORDS SUMMARY | 2023-10-28 13:38 | XMS_ITS | Encounter Summary ---
Author Name Unknown Organization [facility] Address [address] [place] [address] Care Team Providers Care Mortgage Loan Coordinator Name Role Phone Elsewhere, Pcp Primary Care Provider Unavailabl e Encounter Details Date Type Department Care Team (Late st Contact Info) Description 10/24/2023 Clinical Communication Department of Urology in [place], [place] [address] [place] [phone] Caroline Hatfield D.O. [address] [place] [address] Social History Tobacco Use Types Packs/Day Years [...] week 07/10/2022 How often do you attend [facility] or catholic services? Patient declined 07/10/2022 Do you belong to any clubs o r organizations such as yazdanism groups, unions, fraternal or [...] and heating? Not hard at all 07/10/2022 [facility] of Occupat ional Health - [...] encounter Miscellaneous Notes * Addendum Note - Iván Velez, R.N. - 10/28/2023 8:40 AM CDTAddended by: IVÁN VELEZ on: 10/28/2023 08:40 AM Modules accepted: Orders * Telephone Encounter - Elena Valencia R.N. - 10/27/2023 12:09 PM CDT Called patient twice, no answer. Sent pt a portal message. documented in this encounter Plan of Treatment Upcoming Encounters Date Type Department Care Team (Latest Contact Info) Description 12/05/2023 10:45 AM CDT Clinical Communication Virtual Review in [place], [place] 200 [place] [address] 12/09/2023 8:50 AM CDT Appointment Department of Laboratory Medicine and Pathology, [facility], in [place], [place] [address] [place] [phone] Caroline Hatfield D.O. [address] [place] [phone] 12/09/2023 11:00 AM CDT Procedure visit Department of Urology in [place], [place] [address] [place] [phone] Caroline Hatfield D.O. [address] [place] [phone] 12/09/2023 3:00 PM CDT Office Visit Department of Urology in [address] [phone] Caroline Hatfield D.O. [address] [place] [phone] documented as of this encounter Visit Diagnoses Diagnosis Urinary Tract Infection Site Not Specified- Primary documented in this encounter Care Teams Mortgage Loan Coordinator Relationship Specialty Start Date End Date Elsewhere, Pcp PCP - General Internal Medicine 05/02/23 documented as of this encounter
--- OUTSIDE RECORDS SUMMARY | 2023-10-28 13:38 | XMS_ITS | Clinical Summary ---
Author Name Unknown Organization [facility] Address [address] [place] [address] Care Team Providers Care Redevelopment Manager Name Role Phone Elsewhere, Pcp Primary Care Provider Unavailabl e Source Comments Patient records contain information from all sites at [facility]. For routine questions regarding patient records, call [phone] during business hours, M-F 8:00 AM - 5:00 PM Central Time. Record requests for emergency care only can be directed to [phone] at any time.[facility] Allergies Active Allergy Reactions Criticality Noted Date Comments Adalimumab Rash High 02/29/2016 Codeine Nausea Only,Other (s ee comments),GI intolerance Low 04/29/2008 Nausea Hydrochlorothiazide Rash High 04/29/2008 Rash Ibuprofen Other (see comments) 08/25/2016 Patient told not to take Medications Medication Sig Dispensed Refills Start Date End Date Status hydrocortisone 2.5 % ointmentIndicati ons:Dermatitis Asteatotic Xerotic Apply 1 application topically 2 (two) times a day. Apply to rash. 454 g 3 02/08/2022 Active Additional Information Patient taking differently:1 application. topicalAs needed, Apply to rash., Reported on 04/29/2023 clindamycin (Cleocin T) 1 % lotionIndication s:Furunculosis Apply 1 application topically daily. Apply to [...] needed. 05/07/2022 Active metroNIDAZOLE (METROCREAM) 0.75 % creamIndications :Other Rosacea Apply 1 application topically 2 (two) times a day. Apply to face for rosacea. 45 g 3 09/13/2022 Active Additional Information Patient taking differently:1 application. topicalAs needed, Apply to face for rosacea., Reported on 04/29/2023 lisinopriL (PRINIVIL,ZESTRI L) 40 mg tablet daily. 09/12/2022 Active acetaminophen (TYLENOL) 500 mg tablet Take 1 tablet (500 mg total) by mouth every 6 (six) hours as needed for pain. 05/02/20[address] Active [address] tablet Take 1 tablet (81 mg total) by mouth daily. Please restart 24 hours after your surgery on 05/14/23. 05/14/2023 Active triamcinolone (KENALOG) 0.1 % creamIndications :Dermatitis Asteatotic Xerotic Apply 1 application topically 2 (two) times a day as needed for Rash under wet wraps. 454 g 06/19/2023 Active inFLIXimab (REMICADE) 10 mg/mL injectionIndicat ions:Crohn's Disease (HCC) Infuse 10mg/kg every 4-5 weeks. [...] day with meals. 5 tablet 10/24/2023 Active nitrofurantoin monohydrate (MACROBID) 100 mg capsuleIndicatio ns:Urinary Tract Infection Site Not Specified Take 1 capsule (100 mg total) by mouth 2 (two) times a day for 7 days. 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 10/24/2023 Clinical Communication Department of Urology in [place], [place] [address] [place] [phone] Caroline Hatfield D.O. 10/21/2023 9:39 AM CDT - 10/21/2023 11:59 PM CDT Hospital Encounter Department of Laboratory Medicine and Pathology, [facility] in [place], [place] [address] [place] [phone] Erica Nguyen M.D. Crohn's Disease (HCC); Diarrhea Discharge Disposition: Home or Self Care 10/06/2023 Clinical Communication Department of Urology in [place], [place] [address] [place] [phone] Caroline Hatfield D.O. 09/11/2023 Clinical Communication Division of Gastroenterology in [place], [place] [address] [place] [phone] Erica Nguyen M.D. Nurse Assessment; Inflammatory Bowel Disease (Symptomatic ) 09/02/2023 9:50 AM CDT - 09/02/2023 11:59 PM CDT Hospital Encounter Department of Laboratory Medicine and Pathology, [facility], in [place], [place] [address] [place] [phone] Erica Nguyen M.D. Diarrhea Discharge Disposition: Home or Self Care 08/29/2023 Clinical Communication Division of Gastroenterology in [place], [place] [address] [place] [phone] Erica Nguyen M.D. Inflammatory Bowel Disease (C.Diff Testing) 08/18/2023 Orders Only Division of Gastroenterology in [place], [place] [address] [place] [phone] Rahul Fam M.D. Genetic Susceptibility To Disease [...] Yashira Relation Name Status Comments Brother 1 Chuckie Franklin Brother 2 Ashlee Father Chuckie Maternal Grandmother Karen Mother Jose Sister 1 Ashlee Sister 2 Yashira Social [...] How often do you attend chur or rastafarian services? Patient declined 07/10/2022 Do you belong to any clubs o r organizations such as methodist groups, unions, fraternal or [...] and heating? Not hard at all 07/10/2022 [facility] of Occupat ional [facility] - Occupational Stress Questionnaire Answer Date Recorded [...] or slept in a long-term (including now)? No 07/10/2022 Nutrition Answer Date [...] Comments Blood Pressure 129/67 05/14/2023 1:30 PM [employer] Pulse 69 05/14/2023 1:35 PM [employer] Temperature 36.7 ??C (98.1 ??F) 05/14/2023 12:[address] Respiratory Rate 21 05/14/2023 1:35 PM [employer] Oxygen Saturation 91% 05/14/2023 1:35 PM [employer] Inhaled Oxygen Concentration - - Weight 101 kg (223 lb 5.2 oz) 05/14/2023 9:12 AM [employer] Height 167 cm (5' 5.75) 05/01/2023 3:48 PM [employer] Body Mass Index 36.32 05/01/2023 3:48 PM [employer] Plan of Treatment Upcoming Encounters Date Type Department Care Team (Latest Contact Info) Description 12/05/2023 10:45 AM CDT Clinical Communication Virtual Review in [place], [place] 200 [place] [address] 12/09/2023 8:50 AM CDT Appointment Department of Laboratory Medicine and Pathology, [facility], in [place], [place] [address] [place] [phone] Caroline Hatfield D.O. [address] [place] [phone] 12/09/2023 11:00 AM CDT Procedure visit Department of Urology in [place], [place] [address] [place] [address] Caroline Hatfield D.O. [address] [place] [address] 12/09/2023 3:00 PM CDT Office Visit Department of Urology in [place], [place] [address] [place] [address] Caroline Hatfield D.O. [address] [place] [address] Health Maintenance Due Date Last Done Comments [...] this topic Medical Devices Implanted Type Area Media Aid Device Identifier Shelf Expiration Date Model / Serial / Lot Hardware E.G. Pins/Screws/Lloyd s Hardware e.g. pins/screws/r ods Scalp [place]-Screw 1.5x 4mm - [id number] [id number] Implanted:Qty: 3 on 04/20/2012 Hardware e.g. pins/screws/r ods Nevaeh Description:Device Manufactu [email or web address] - Harimata.. Device Status Text - [id number]. Nevaeh-Mesh 90x90x.6mm(Gold ) - Muñiz [id number] Implanted:Qty: 1 on 04/20/2012 Hardware e.g. pins/screws/r ods [place] Description:Device Manufactu Datto.. Device Status Text - [id number]. Knee Implant- 6 Implanted:11/21 (Quantity not on file) Knee Implant Left: Knee Knee Implant- 6 Implanted:11/21 (Quantity not on file) Knee Implant Right: Knee [place] Richard Fuzzy 1 X 1 - Muñiz [id number] Implanted:Qty: 1 on 04/20/2012 Mesh or Patch [employer] [facility] Description:Device Manufactu OpenCurriculum. Device Status Text - [id number]-1667. JERICHO Data - [id number]. Gen Nrstm F15 6.0g37b76 - [id number] - [id number] Implanted:Qty: 1 on 05/14/2023 by Caroline Hatfield D.O. at [facility] Nguyen/Haptika Sacral Nerve Stimulator N/A: Back [employer] Inc 01/22/2024 4101 / [id number] / Kt Piper Ld Str Crv Stylt Snm - [id number] - [id number] Implanted:Qty: 1 on 05/14/2023 by Caroline Hatfield D.O. at [facility] Nguyen/Haptika Sacral Nerve Stimulator N/A: Back [employer] Inc 10/04/2025 1201 / [id number] / Prgrmr Pt Rem Ctrl Snm - [id number] - [id number] Implanted:Qty: 1 on 05/14/2023 by Caroline Hatfield D.O. at [facility] Nguyen/Haptika Sacral Nerve Stimulator N/A: Back [employer] 05/22/2033 2301 / [id number] 25 / Procedures Procedure Name Priority Date/Time Associated Diagnosis Comments C. DIFFICILE TOXIN PCR, F Routine 10/22/2023 1:15 PM CDT Crohn's Disease (HCC) Diarrhea C. DIFFICILE TOXIN PCR, F Routine 09/07/2023 9:09 AM CDT Diarrhea CREATININE WITH EGFR, S/P Routine 06/12/2023 9:37 AM [employer] Ileitis Crohn's (HCC) BASIC METABOLIC PANEL, S/P Routine 05/01/2023 2:55 PM [employer] Preanesthetic Medical Exam COLONOSCOPY Routine 05/15/2022 10:57 AM [employer] Crohn's Disease (HCC) Infection Urinary Tract Recurrent [...] is a semi-urge nt result(MCCULLOUGH ) [facility] Stool (Stool) 10/22/2023 1:1 5 PM CDT 10/24/2023 1:34 PM CDT Erica Nguyen M.D. LAB MICROBIOLOGY - GENERAL ORDERABLES Performing Organization Address City/[facility]/ZIP Co de Phone Number [facility] 200 [place] [address], [facility] [address] [address] * Creatinine with Estimated GFR (06/12/2023 9:37 AM [employer]) Creatinine 0.90 0.59 - 1.04 mg/dL 06/12/2023 11:03 AM [employer] DTL Estimated GFR (eGFR) 70 >=60 mL/min/BSA 06/12/2023 11:03 AM [employer] DTL Comment: Estimated GFR calculated using the 2020 CKD_EPI creatinine equation. Blood (Blood, Venous) 06/12/2023 9:37 AM [employer] 06/12/2023 10:22 AM [employer] Gali Porter M.D. LAB BLOOD ADD-ON [facility] 200 [place] [address], [facility] [address] [address] * (ABNORMAL) Basic Metabolic Panel (05/01/2023 2:55 PM [employer]) Potassium, S 4.1 3.6 - 5.2 mmol/L 05/01/2023 3:48 PM [employer] DTL Sodium, S 140 135 - 145 mmol/L 05/01/2023 3:48 PM [employer] DTL Chloride, S 104 98 - 107 mmol/L 05/01/2023 3:48 PM [employer] DTL Bicarbonate, S 24 22 - 29 mmol/L 05/01/2023 3:48 PM [employer] DTL Anion Gap 12 7 - 15 05/01/2023 3:48 PM [employer] DTL BUN (Blood Urea Nitrogen), S 15 6 - 21 mg/dL 05/01/2023 3:48 PM [employer] DTL Creatinine 1.14(H) 0.59 - 1.04 mg/dL 05/01/2023 3:48 PM [employer] DTL Estimated GFR (eGFR) 52(L) >=60 mL/min/BSA 05/01/2023 3:48 PM [employer] DTL Comment: Estimated GFR calculated using the 2020 CKD_EPI creatinine equation. Calcium, Total, S 9.1 8.8 - 10.2 mg/dL 05/01/2023 3:48 PM [employer] DTL Glucose, S 137 70 - 140 mg/dL 05/01/2023 3:48 PM [employer] DTL Blood (Blood, Venous) 05/01/2023 2:55 PM [employer] 05/01/2023 3:27 PM [employer] India Lincoln APRNNRosalia, M.S.N. [place] B BLOOD ADD-ON [facility] [address] [facility] [address] [place] [address] * BI Breast Screening Bilateral (03/04/2014 1:57 [...] Recently Relevant to Health Maintenance Care Teams Redevelopment Manager Relationship Specialty Start Date End Date Elsewhere, Pcp PCP - General Internal Medicine 05/02/23
--- OUTSIDE RECORDS SUMMARY | 2023-10-28 13:38 | XMS_ITS | Referral Summary ---
Author Name Unknown Organization [facility] Address [address] [place] [address] Care Team Providers Care Tripoler Name Role Phone Elsewhere, Pcp Primary Care Provider Unavailabl e Source Comments Patient records contain information from all sites at [facility]. For routine questions regarding patient records, call [phone] during business hours, M-F 8:00 AM - 5:00 PM Central Time. Record requests for emergency care only can be directed to [phone] at any time.[facility] Encounters Date Type Department Care Team Description 10/24/2023 Orders Only Division of Gastroenterology in [place], [place] [address] [place] [address] Erica Nguyen M.D. 10/24/2023 Clinical Communication Department of Urology in [place], [place] [address] [place] [address] Caroline Hatfield D.O. 10/21/2023 9:39 AM CDT - 10/21/2023 11:59 PM CDT Hospital Encounter Department of Laboratory Medicine and Pathology, [facility], in [place], [place] [address] [place] [address] Erica Nguyen M.D. Crohn's Disease (HCC); Diarrhea Discharge Disposition: Home or Self Care 10/06/2023 Clinical Communication Department of Urology in [place], [place] [address] [place] [address] Caroline Hatfield D.O. 09/11/2023 Clinical Communication Division of Gastroenterology in [place], [place] [address] [place] [address] Erica Nguyen M.D. Nurse Assessment; Inflammatory Bowel Disease (Symptomatic ) 09/02/2023 9:50 AM CDT - 09/02/2023 11:59 PM CDT Hospital Encounter Department of Laboratory Medicine and Pathology, [facility], in [place], [place] [address] [place] [address] Erica Nguyen M.D. Diarrhea Discharge Disposition: Home or Self Care 08/29/2023 Clinical Communication Division of Gastroenterology in [place], [place] [address] [place] [address] Erica Nguyen M.D. Inflammatory Bowel Disease (C.Diff Testing) 08/18/2023 Orders Only Division of Gastroenterology in [place], [place] [address] [place] [address] Rahul Fam M.D. Genetic Susceptibility To Disease [...] Disease 11/07/2009 Atherosclerotic Heart Diseas e Of [place] Coronary Artery Without Angina Pectoris 07/17/2009 Fatty [...] week 07/10/2022 How often do you attend [facility] or islam services? Patient declined 07/10/2022 Do you belong to any clubs o r organizations such as gnosticist groups, unions, fraternal or [...] and heating? Not hard at all 07/10/2022 [facility] of Occupat ional Health - Occupational Stress [...] Comments Blood Pressure 129/67 05/14/2023 1:30 PM [facility] [employer] Pulse 69 05/14/2023 1:35 PM [facility] Temperature 36.7 ??C (98.1 ??F) 05/14/2023 12:[address] Respiratory Rate 21 05/14/2023 1:35 PM [facility] Oxygen Saturation 91% 05/14/2023 1:35 PM [facility] Inhaled Oxygen Concentration - - Weight 101 kg (223 lb 5.2 oz) 05/14/2023 9:12 AM [facility] [employer] Height 167 cm (5' 5.75) 05/01/2023 3:48 PM [facility] Body Mass Index 36.32 05/01/2023 3:48 PM [facility] Plan of Treatment Upcoming Encounters Date Type Department Care Team (Latest Contact Info) Description 12/05/2023 10:45 AM CDT Clinical Communication Virtual Review in [place], [place] 200 [place] [address] 12/09/2023 8:50 AM CDT Appointment Department of Laboratory Medicine and Pathology, [facility], in [place], [place] [address] [place] [phone] Caroline Hatfield D.O. [address] [place] [phone] 12/09/2023 11:00 AM CDT Procedure visit Department of Urology in [address] [address] Caroline Hatfield D.O. [address] [place] [phone] 12/09/2023 3:00 PM CDT Office Visit Department of Urology in [address] [phone] Caroline Hatfield D.O. [address] [place] [phone] Medical Devices Implanted Type Area Client Services Account Manager Device Identifier Shelf Expiration Date Model / Serial / Lot Hardware E.G. Pins/Screws/Lloyd s Hardware e.g. pins/screws/r ods Scalp Nevaeh-Screw 1.5x 4mm - Muñiz [id number] Implanted:Qty: 3 on 04/20/2012 Hardware e.g. pins/screws/r ods Nevaeh Description:Device Manufactu rer - Nevaeh Florina.. Device Status Text - [id number]. Nevaeh-Mesh 90x90x.6mm(Gold ) - Muñiz [id number] Implanted:Qty: 1 on 04/20/2012 Hardware e.g. pins/screws/r ods Nevaeh Description:Device Manufactu rer - [place] Florina.. Device Status Text - [id number]. Knee Implant- 6 Implanted:11/21 (Quantity not on file) Knee Implant Left: Knee Knee Implant- 6 Implanted:11/21 (Quantity not on file) Knee Implant Right: Knee Austin Richard Fuzzy 1 X 1 - Muñiz [id number] Implanted:Qty: 1 on 04/20/2012 Mesh or Patch [email or web address] Description:Device Manufactu Cyber [employer]. Device Status Text - MESHPATCH-1667. [facility] Data - [id number]. Gen [facility] F15 6.1v19a16 - [id number] - [id number] Implanted:Qty: 1 on 05/14/2023 by Caroline Hatfield D.O. at [facility] Sacral Nerve Stimulator N/A: Back Axonics Mod[employer] Inc 01/22/2024 4101 / [id number] / Kt Piper Ld Str Crv Stylt Snm - [id number] - [id number] Implanted:Qty: 1 on 05/14/2023 by Caroline Hatfield D.O. at [facility] Sacral Nerve Stimulator N/A: Back [employer] Inc 10/04/2025 1201 / [id number] / Prgrmr Pt Rem Ctrl Snm - [id number] - [id number] Implanted:Qty: 1 on 05/14/2023 by Caroline Hatfield D.O. at [facility] Sacral Nerve Stimulator N/A: Back And[employer]il[employer] Inc 05/22/2033 2301 / [id number] 25 / Procedures Procedure Name Priority Date/Time Associated Diagnosis Comments C. DIFFICILE TOXIN PCR, F Routine 10/22/2023 1:15 PM CDT Crohn's Disease (HCC) Diarrhea C. DIFFICILE TOXIN PCR, F Routine 09/07/2023 9:09 AM CDT Diarrhea CREATININE WITH EGFR, S/P Routine 06/12/2023 9:37 AM [facility] Ileitis Crohn's (HCC) BASIC METABOLIC PANEL, S/P Routine 05/01/2023 2:55 PM [facility] Preanesthetic Medical Exam COLONOSCOPY Routine 05/15/2022 10:57 AM [facility] Crohn's Disease (HCC) Infection Urinary Tract Recurrent [...] [facility] Stool (Stool) 10/22/2023 1:1 5 PM CDT 10/24/2023 1:34 PM CDT Erica Nguyen M.D. LAB MICROBIOLOGY - GENERAL ORDERABLES [facility] [address] [place] [address], [place] DTL [facility] [address] [place] [address] * Creatinine with Estimated GFR (06/12/2023 9:37 AM [facility]) Creatinine 0.90 0.59 - 1.04 mg/dL 06/12/2023 11:03 AM [facility] DTL Estimated GFR (eGFR) 70 >=60 mL/min/BSA 06/12/2023 11:03 AM [facility] DTL Comment: Estimated GFR calculated using the 2020 CKD_EPI creatinine equation. Blood (Blood, Venous) 06/12/2023 9:37 AM [facility] 06/12/2023 10:22 AM [facility] Gali Porter M.D. LAB BLOOD ADD-ON [facility] [address] [place] [address], [facility] [address] [place] [address] * (ABNORMAL) Basic Metabolic Panel (05/01/2023 2:55 PM [facility]) Potassium, S 4.1 3.6 - 5.2 mmol/L 05/01/2023 3:48 PM [facility] DTL Sodium, S 140 135 - 145 mmol/L 05/01/2023 3:48 PM [facility] DTL Chloride, S 104 98 - 107 mmol/L 05/01/2023 3:48 PM [facility] DTL Bicarbonate, S 24 22 - 29 mmol/L 05/01/2023 3:48 PM [facility] DTL Anion Gap 12 7 - 15 05/01/2023 3:48 PM [facility] DTL BUN (Blood Urea Nitrogen), S 15 6 - 21 mg/dL 05/01/2023 3:48 PM [facility] DTL Creatinine 1.14(H) 0.59 - 1.04 mg/dL 05/01/2023 3:48 PM [facility] DTL Estimated GFR (eGFR) 52(L) >=60 mL/min/BSA 05/01/2023 3:48 PM [facility] DTL Comment: Estimated GFR calculated using the 2020 CKD_EPI creatinine equation. Calcium, Total, S 9.1 8.8 - 10.2 mg/dL 05/01/2023 3:48 PM [facility] DTL Glucose, S 137 70 - 140 mg/dL 05/01/2023 3:48 PM [facility] DTL Blood (Blood, Venous) 05/01/2023 2:55 PM [facility] 05/01/2023 3:27 PM [facility] India Lincoln APRNNElvisPElvis, M.S.NElvis [place] BLOOD ADD-ON Performing Organization Address City/State/[facility] Co de Phone Number [facility] [address] [place] [address], [facility] DTL [facility] [address] [place] [address] * BI Breast Screening Bilateral (03/04/2014 1:57 [...] Recently Relevant to Health Maintenance Care Teams Tripoler Relationship Specialty Start Date End Date Elsewhere, Pcp PCP - General Internal Medicine 05/02/23
--- OUTSIDE RECORDS SUMMARY | 2023-10-28 13:38 | XMS_ITS ---
Author Name Unknown Organization [facility] Address [address] [place] [address] Care Team Providers Care Assembly Line Brazer Name Role Phone Unavailable Unavailable Unavailable Surgery Details Not on file Complications Check Surgery Details section. Procedure Estimated Blood Loss Check Surgery Details section. Procedure Findings Check Surgery Details section. Procedure Specimens Taken Check Surgery Details section.
--- OUTSIDE RECORDS SUMMARY | 2023-10-28 13:39 | XMS_ITS | Encounter Summary ---
Author Name Unknown Organization [facility] Address [address] [place] [address] Care Team Providers Care Knitting Demonstrator Name Role Phone Elsewhere, Pcp Primary Care Provider Unavailabl e Reason for Visit * Reason Onset Date Comments Inflammatory Bowel Disease 08/29/2023 C.Dif f Testing Encounter Details Date Type Department Care Team (Latest Contact Info) Description 08/29/2023 Clinical Communication Division of Gastroenterology in [place], [place] [address] [place] [address] Erica Nguyen M.D. [address] [place] [phone] Inflammatory Bowel Disease (C.Diff Testing) Social History [...] How often do you attend chur or adventism services? Patient declined 07/10/2022 Do you belong [...] and heating? Not hard at all 07/10/2022 [facility] of Occupat ional Health - [...] Information Discussed Returned call to Dorothy at [facility] (ph: [phone]) to discuss patient's upcoming infliximab infusion scheduled [...] AM CDT Clinical Communication Virtual Review in [place], [place] 200 [place] [address] 12/09/2023 8:50 AM CDT Appointment Department of Laboratory Medicine and Pathology, [facility] in [address] [address] Caroline Hatfield D.O. [address] [place] [phone] 12/09/2023 11:00 AM CDT Procedure visit Department of Urology in [address] [address] Caroline Hatfield D.O. [address] [place] [phone] 12/09/2023 3:00 PM CDT Office Visit Department of Urology in [address] [address] Caroline Hatfield D.O. [address] [place] [phone] documented as of this encounter Results * (ABNORMAL) Clostridioides (Clostridium) Difficile Toxin, Molecular Detection, PCR, Feces (09/07/2023 9:09 AM CDT) C. difficile Toxin, F Positive( A) Negative 09/07/2023 10:50 AM CDT DTL Semi-Urgent This is a semi-urge nt result(MCCULLOUGH ) [facility] Stool (Stool) 09/07/2023 9:0 9 AM CDT 09/07/2023 9:51 AM CDT Narrative Resulting Agency Comment Unable to Determine Date and Time of Collection Erica Nguyen M.D. LAB MICROBIOLOGY - GENERAL ORDERABLES [facility] [address] [place] [address], [facility] [address] [place] [address] documented in this encounter Visit Diagnoses Diagnosis Diarrhea- Primary documented in this encounter Care Teams Knitting Demonstrator Relationship Specialty Start Date End Date Elsewhere, Pcp PCP - General Internal Medicine 05/02/23 documented as of this encounter
--- OUTSIDE RECORDS SUMMARY | 2023-10-28 13:39 | XMS_ITS | Encounter Summary ---
Author Name Unknown Organization [facility] Address [address] [place] [address] Care Team Providers Care Supervisor Beam Department Name Role Phone Elsewhere, Pcp Primary Care Provider Unavailabl e Reason for Visit * Reason Onset Date Comments IFX trough/C diff 07/01/2023 Encounter Details Date Type Department Care Team (Latest Contact Info) Description 07/01/2023 Clinical Communication Division of Gastroenterology in [place], [place] [address] [place] [phone] Erica Nguyen M.D. [address] [place] [phone] IFX trough/C diff Social History Tobacco Use [...] How often do you attend chur or congregational services? Patient declined 07/10/2022 Do you belong [...] and heating? Not hard at all 07/10/2022 [facility] Occupat ional [facility] - Occupational Stress [...] AM CDT Clinical Communication Virtual Review in [place], [place] [address] [place] [address] 12/09/2023 8:50 AM CDT Appointment Department of Laboratory Medicine and Pathology, [facility], in [place], [place] [address] [place] [address] Caroline Hatfield D.O. [address] [place] [phone] 12/09/2023 11:00 AM CDT Procedure visit Department of Urology in [place], [place] [address] [place] [phone] Caroline Hatfield D.O. [address] [place] [phone] 12/09/2023 3:00 PM CDT Office Visit Department of Urology in [place], [place] [address] [place] [address] Caroline Hatfield D.O. [address] [place] [phone] documented as of this encounter Visit Diagnoses Diagnosis Crohn's Disease (HCC)- Primary documented in this encounter Care Teams Supervisor Beam Department Relationship Specialty Start Date End Date Elsewhere, Pcp PCP - General Internal Medicine 05/02/23 documented as of this encounter
--- OUTSIDE RECORDS SUMMARY | 2023-10-28 13:39 | XMS_ITS | Encounter Summary ---
Author Name Unknown Organization [facility] Address [address] [place] [address] Care Team Providers Care Parboiler Name Role Phone Elsewhere, Pcp Primary Care Provider Unavailabl e Encounter Details Date Type Department Care Team (Late st Contact Info) Description 03/02/2015 Historical Ophthalmology [facility] O[facility] Cayetano Chand M.D., Ph.D. [address] [place] [address] Social History Tobacco Use Types Packs/Day Years [...] On February 01, 2015, she saw her cooling room attendant, Dr. Liu for evaluation of this. She [...] gland dysfunction CDM Reports - EYEGEN Id: [id number] Status: Fnl documented in this encounter Plan of Treatment Upcoming Encounters Date Type Department Care Team (Latest Contact Info) Description 12/05/2023 10:45 AM CDT Clinical Communication Virtual Review in [place], [place] 200 [place] [address] 12/09/2023 8:50 AM CDT Appointment Department of Laboratory Medicine and Pathology, [facility], in [address] [phone] Caroline Hatfield D.OElvis [address] [place] [phone] 12/09/2023 11:00 AM CDT Procedure visit Department of Urology in [address] [phone] Caroline Hatfield D.O. [address] [place] [phone] 12/09/2023 3:00 PM CDT Office Visit Department of Urology in [address] [phone] Caroline Hatfield D.OElvis [address] [place] [phone] documented as of this encounter Visit Diagnoses Not on filedocumented in this encounter Care Teams Parboiler Relationship Specialty Start Date End Date Elsewhere, Pcp PCP - General Internal Medicine 05/02/23 documented as of this encounter
--- OUTSIDE RECORDS SUMMARY | 2023-10-28 13:39 | XMS_ITS | Encounter Summary ---
Author Name Unknown Organization [facility] Address [address] [place] [address] Care Team Providers Care [facility] Owner Name Role Phone Elsewhere, Pcp Primary Care Provider Unavailabl e Encounter Details Date Type Department Care Team (Latest Contact Info) Description 09/02/2023 9:50 AM CDT - 09/02/2023 11:59 PM CDT Hospital Encounter Department of Laboratory Medicine and Pathology, [facility] in [place], [place] [address] [place] [address] Erica Nguyen M.D. [address] [place] [phone] Diarrhea Discharge Disposition: Home or Self Care [...] any clubs o r organizations such as alevism groups, unions, [employer]ro[employer] or athletic groups, or school groups? Yes [...] and heating? Not hard at all 07/10/2022 [facility]at ional [...] AM CDT Clinical Communication Virtual Review in [place], [place] 200 [place] [address] 12/09/2023 8:50 AM CDT Appointment Department of Laboratory Medicine and Pathology, [facility], in [place], [place] [address] [place] [phone] Caroline Hatfield D.O. [address] [place] [phone] 12/09/2023 11:00 AM CDT Procedure visit Department of Urology in [place], [place] [address] [place] [phone] Caroline Hatfield D.O. [address] [place] [phone] 12/09/2023 3:00 PM CDT Office Visit Department of Urology in [address] [phone] Caroline Hatfield D.O. [address] [place] [phone] documented as of this encounter Procedures Procedure Name Priority Date/Time Associated Diagnosis Comments C. DIFFICILE TOXIN PCR, F Routine 09/07/2023 9:09 AM CDT Diarrhea documented in this encounter Results * (ABNORMAL) Clostridioides (Clostridium) Difficile Toxin, Molecular Detection, PCR, Feces (09/07/2023 9:09 AM CDT) C. difficile Toxin, F Positive( A) Negative 09/07/2023 10:50 AM CDT DTL Semi-Urgent This is a semi-urge nt result([facility] ) [facility] Stool (Stool) 09/07/2023 9:0 9 AM CDT 09/07/2023 9:51 AM CDT Narrative Resulting Agency Comment Unable to Determine Date and Time of Collection Erica Nguyen M.D. LAB MICROBIOLOGY - GENERAL ORDERABLES [facility] [address] [place] [address], [facility] [address] [place] [address] documented in this encounter Visit Diagnoses Diagnosis Diarrhea documented in this encounter Care Teams [facility] Owner Relationship Specialty Start Date End Date Elsewhere, Pcp PCP - General Internal Medicine 05/02/23 documented as of this encounter
--- OUTSIDE RECORDS SUMMARY | 2023-10-28 13:39 | XMS_ITS | Encounter Summary ---
Author Name Unknown Organization [facility] Address [address] [place] [address] Care Team Providers Care Director Human Services Name Role Phone Elsewhere, Pcp Primary Care Provider Unavailabl e Encounter Details Date Type Department Care Team (Late st Contact Info) Description 08/18/2023 Orders Only Division of Gastroenterology in [place], [place] [address] [place] [phone] Rahul Fam M.D. [address] [place] [phone] Genetic Susceptibility To Disease Social History Tobacco [...] week 07/10/2022 How often do you attend [facility] or [facility] services? Patient declined 07/10/2022 Do you belong to any clubs o r organizations such as worship groups, unions, fraternal or [...] and heating? Not hard at all 07/10/2022 [facility] [place] [facility]at ional Health - Occupational Stress [...] AM CDT Clinical Communication Virtual Review in [place], [place] [address] [place] [address] 12/09/2023 8:50 AM CDT Appointment Department of Laboratory Medicine and Pathology, [facility], in [place], [place] [address] [place] [address] Caroline Hatfield D.O. [address] [place] [phone] 12/09/2023 11:00 AM CDT Procedure visit Department of Urology in [place], [place] [address] [place] [address] Caroline Hatfield D.O. [address] [place] [phone] 12/09/2023 3:00 PM CDT Office Visit Department of Urology in [place], [place] [address] [place] [address] Caroline Hatfield D.O. [address] [place] [phone] documented as of this encounter Procedures Procedure Name Priority Date/Time Associated Diagnosis Comments EXT TAPESTRY Routine 11/26/2022 12:00 AM CDT Genetic Susceptibility To Disease documented in this encounter Results * EXT Tapestry (11/26/2022 12:00 AM CDT) Gene Studied BRCA1,BRCA2,MLH1,MSH 2, MSH6,PMS2,EPCAM,APOB,L DLR,LDLRAP1,PCSK9 12/31/2022 12:00 AM CDT [facility] Genetic Disease Assessed Evaluation of 11 genes [...] enriched using a custom set of reagents (Pharmapod+ chemistry). Targeted regions were sequenced using an Illumina DNA sequencing system. Your sequence was matched to a modified version of the industry standard reference genome (GRCh38). Variant calling was completed using a customized version of [employer] software, requiring 20x coverage for validated variant calls. Copy Number Variants (CNVs) were called using a proprietary bioinformatics pipeline that compared the coverage profile of your sample with the coverage profiles of other reference set samples. [facility] [place] then analyzed the generated variant data for the exons and 10 bp of flanking intronic sequence (and select tagged intronic variants) of the 11 genes included in [employer] from the [employer] Database. Your sample was reviewed for single [...] and medical management. 12/31/2022 12:00 AM CDT [facility] Human Reference Sequence Assembly GRCh38 12/31/2022 12:00 AM [facility] Saliva (Mouth) 11/26/2022 Rahul Fam M.D. LAB GENETI C TESTING [place] [address] [facility], [address] [place] [address], [facility] [place] [address] [facility], [address]. [place] [address] documented in this encounter Visit Diagnoses Diagnosis Genetic Susceptibility To Disease documented in this encounter Care Teams Director Human Services Relationship Specialty Start Date End Date Elsewhere, Pcp PCP - General Internal Medicine 05/02/23 documented as of this encounter
== END 2023-10-28 13:35 | disposition home or self-care (01) ==
LOC: NFLDREF 13:35
PROVIDERS: PCP Internal Medicine; Visit Provider Internal Medicine
DX: Z86.39 Personal history of other endocrine, nutritional and metabolic disease (principal); Z13.89 Encounter for screening for other disorder
CPT/HCPCS: 84132

== ENCOUNTER 2023-12-02 15:50 | Outpatient (CLI) | payer MEDICARE, BC, SELFPAY | END 2023-12-02 15:51 | disposition home or self-care (01) | LOC: NFLDREF 12-06 18:41 | PROVIDERS: PCP Internal Medicine; Referring Provider Internal Medicine; Visit Provider Internal Medicine | DX: R30.0 Dysuria (principal); N30.00 Acute cystitis without hematuria | CPT/HCPCS: 87086; 87186 ==

== ENCOUNTER 2024-03-31 08:15 | Outpatient (CLI) | payer MEDICARE, BC, SELFPAY ==
--- OUTSIDE RECORDS SUMMARY | 2024-03-31 08:17 | XMS_ITS | Clinical Summary ---
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 TECHNICIAN Oxygen Saturation 96% 12/05/2021 1:46 PM CDT [...] C screening for ag e 18-79 1972 Tetanus booster 1974 Lipids for age 45-75 10/19/1999 Zoster (shingles) series for age 50+ (1 of 2) 2004 Mammogram for age 45-75 03/04/2015 03/04/2014 BMI (ht and wt on same day) for age 18+ 09/18/2017 09/18/2016 DEXA/DXA scan for age 65+ 10/19/2019 Medicare Wellness for age 65+ 10/19/2019 Pneumococcal series for age 65+ (1 of 1 - PCV) 10/19/2019 COVID-19 vaccine series ( - 2024-25 season) 2024 07/23/2021, 02/19/2021, 09/07/2020, Additional history exists Influenza for age 65+ 02/22/2024 Colonoscopy through age 75 05/15/2032 05/15/2022, Procedures Procedure Name Priority Date/Time Associated Diagnosis Comments SCAN-COLONOSCOPY 05/15/2022 12:0 0 AM GAS PLANT TECHNICIAN SCAN-MAMMOGRAPHY REPORT 03/04/2014 12:00 AM CDT from Last 3 Months or Most Recently Relevant to Health Maintenance Results * SCAN-COLONOSCOPY (05/15/2022 12:00 AM GAS PLANT TECHNICIAN) Scanner OTHER * SCAN-MAMMOGRAPHY REPORT (03/04/2014 12:00 AM CDT) Anatomical Region Laterality Modality Other Scanner OTHER from Last 3 Months or Most Recently Relevant to Health Maintenance Care Teams Field Service Consultant Relationship Specialty Start Date End Date Hansa Doty MD [address] [place] [address] PCP - General Internal Medicine 07/15/16
--- OUTSIDE RECORDS SUMMARY | 2024-03-31 08:17 | XMS_ITS | Data Portability ---
Author Organization [facility], [facility] Address [address] [place] [address] Care Team Providers Care Electric Blanket Packer Name Role Phone ANN GALVAN Primary Care Provider Assessment Encounter Date Assessment Date Assessment LastModified by Organization Details LastModified Time 10/30/2021 10/30/2021 Patient here for UTI . Culture sent [email or web address] Not available 10/30/2021 10:44:57 Plan of Treatment Reminders Order Date Submit Date Provider Last Modified By Organization Details Last Modified Time Details Appointments None recorded. Lab urinalysis , dipstick 2021 022 Not available 10:55:24 urinalysis , dipstick 2021 022 bbeckers Not available 10:43:34 culture, urine 2021 022 [facility], [address], [place], [address], 09:11:35 Referral None recorded. Procedures None recorded. Surgeries None recorded. Imaging None recorded. Medication Orders Myrbetriq 50 mg tablet,ext ended release 2021 022 [facility] [place], [address], 10:55:24 Patient TargetsNo targets recorded. Patient Instructions Encounter Date Encounter Id Patient Instructions Last Modified By Organization Details Last Modified Time 10/30/2021 [id number] Patient was give n Keflex 500mg Patient is to take 2 cap 2 X per day for 3 days. [email or web address] Not available 10/30/2021 10:46:20 Reason for Referral None Reported. Results Created Date Observation Date Name Description Value Unit Range Abnormal Flag Note LastModifiedBy Organization Detail LastModifiedTime 10/25/19 22 10/24/2021 urina lysis , dipst ick Color-Status Yellow Not Available [facility] [address], [place], [address], 10/24/2021 10:25:23 10/25/19 22 10/24/2021 urina lysis , dipst ick Clarity-Stat us Clear Not Available [facility] [address], [place], [address], 10/24/2021 10:25:23 10/31/19 22 10/30/2021 URINE CULTU RE final report Microb iology result s abnormal SOURC E Void KNOWN ALLER GIES codei ne Humir a rash Poly mumab hydro chlor othia zide TREAT MENT n/a MEDIA PLATE D AT: Media plate d on 2021 @ 5:54 PM COLON Y COUNT >100, 000 cfu/m l RESUL T Esche alejandrina a coli (Isol ate 1) Sensi tivit y Arabella sis [place] te 1 ----- ----- ----- ----- ----- ----- ----- - AMOX/ K CLAV >16/8 R AMP/S ULBAC [place] >16/8 R AMPIC ILLIN >16 R AZTRE ONAM <=4*S CEFTA ZIDIM E <=1*S CEFTR IAXON E <=1*S CEFUR OXIME 8*S CIPRO FLOXA ADITI >2 R LEVOF LOXAC IN 4 I NITRO FURAN TOIN <=32* S PIP/T AZO <=16* S TETRA CYCLI NE >8 R TRIME TH/MCCULLOUGH LFA >2/38 R TRIME THOPR IM >8 R Orga nisms that are susce ptibl e to tetra cycli ne are gener ally also susce ptibl e to doxyc yclin e and minoc yclin e. Any subst ituti on of drugs which have not been teste d for sensi tivit y shoul d be consi dered based on appro aris usage of the drugs . Infor matharris n on doxyc yclin e and minoc yclin e can be found in the Physi kera' s Desk [facility]. S= Susce ptibl e;I= Inter media te;R= Resis tant; ESBL= Resis tance due to confi rmed ESBL Not Available [facility] [address], [place], [address], 11/01/2021 09:11:34 10/31/19 22 10/30/2021 urina lysis , dipst ick Color-Status Straw Not Available [facility] [address], [place], [address], 10/30/2021 10:42:01 10/31/19 22 10/30/2021 urina lysis , dipst ick Clarity-Stat us Slight ly Cloudy Not Available [facility] [address], [place], [address], 10/30/2021 10:42:01 10/31/19 22 10/30/2021 urina lysis , dipst ick Glucose-Stat us Negati ve Not Available [facility] [address], [place], [address], 10/30/2021 10:42:01 10/31/19 22 10/30/2021 urina lysis , dipst ick Bilirubin-St atus Negati ve Not Available [facility] [address], [place], [address], 10/30/2021 10:42:01 10/31/19 22 10/30/2021 urina lysis , dipst ick Ketones-Stat us Negati ve Not Available [facility] [address], [place], [address], 10/30/2021 10:42:01 10/31/19 22 10/30/2021 urina lysis , dipst ick Nitrates-Sta tus positi ve Not Available [facility] [address], [place], [address], 10/30/2021 10:42:01 10/31/19 22 10/30/2021 urina lysis , dipst ick Blood-Status Trace Not Available [facility] [address], [place], [address], 10/30/2021 10:42:01 10/31/19 22 10/30/2021 urina lysis , dipst ick Leuko-Status Small Not Available [facility] [address], [place], [address], 10/30/2021 10:42:01 10/31/19 22 10/24/2021 bladd er scan (PROC ) No observ ation record ed. BARCODE Not Available 2021 15:21:15 Result Notes None recorded. Procedures Surgical History Date Name Laterality Status Provider Name and Address Organization Details Recorded Time 2 Bladder Scan completed Sylvia Senior [facility] 10/24/2021 10:25:41 3 colonoscopy completed Clay Hernandez MD [address] [place] [address],[address] [place] [address], [address], [facility] 10/24/2021 10:39:41 8 insertion of single incision mid-urethral mini-sling completed Clay Hernandez MD [address] [place] [address],[address], [place], [address], [facility] 10/24/2021 10:41:56 total knee replacement completed Clay Hernandez MD [address] [place] [address],[address], [place], [address], [facility] 10/24/2021 10:39:16 Imaging Results Imaging Date Name Status LastModified by Organiz ation Details LastModified Time 10/24/2021 bladder scan (PROC) completed BARCODE Information not available 10/30/2021 15:21:15 Procedure Notes None recorded. Medical Equipment None Reported. Allergies Allergen ID Allergen Name Allergen Category Reaction Reaction Severity Criticality Documentation Date Start Date Code Code System Note Provider Name and Address Organization Details Recorded Time 775376 codeine medicatio n Not available Not available Not available 10/24/2021 2670 RxNorm Sylvia Senior dashawn [facility] 2 10:28:53 243465 hydrochlo rothiazid e medicatio n rash Not available Not available 10/24/2021 5487 RxNorm Sylvia Senior dashawn [facility] 2 10:29:06 489180 Humira medicatio n rash Not available Not available 10/24/2021 00766 4 RxNorm Poyl mumab Sylvialucas Botellomercedes tamez [facility] 2 10:29:38 Medications Name Sig Start Date [...] Updated DateTime 10/24/2021 165.1 cm 36.4 kg/m2 74422.73 g Clay Hernandez MD [address], [place], [address], [facility] 10/24/2021 10:35:09 Social History Question Answer Notes LastModified by Organizat ion Details LastModified Time Tobacco Smoking Status Former Smoker Sylvia tamez, [facility] 10/24/2021 10:26:38 What Is Your [...] o Information not available 10/24/2021 Preferred Language Iraqi Information not available 10/24/2021 Number Of Pregnancies [...] Has Tobacco Cessation Counseling Been Provided? Yes Information not available 10/24/2021 On What Date Was Tobacco Cessation Counseling Provided? 10/24/2021 Information not available 10/24/2021 Do You Or Have You Ever Used Any Other Forms Of Tobacco Or Nicotine? No Information not available 10/24/2021 Sex: Unknown Functional Status None recorded. Mental Status None recorded. Family History Relationship Description Onset Age of this Age Resolved Age Notes LastModified by Organization Details LastModified Time Maternal Grandfather Family history of malignant neoplasm Bladde r cancer Not available 10/24/2021 10:37:03 Mother Family history of breast cancer Not available 2021 10:37:11 Mother Family history of diabetes mellitus Not available 2021 10:37:46 Sister Family history of breast cancer Not available 2021 10:37:12 Sister Family history of diabetes mellitus Not available 2021 10:37:46 Sister Family history of Hypertension Not available 09/2021 10:38:08 Father Family history of cardiac disorder Not available 2021 10:37:20 Brother Family history of cardiac disorder Not available 2021 10:37:29 Brother Family history of diabetes mellitus Not available 2021 10:37:46 Brother Family history of Hypertension Not available 09/2021 10:38:08 Medical History Condition Response Other Y High [...] Encounter Closed Date Diagnosis/Indication Diagnosis SNOMED-CT Code Diagnosis ICD10 Code [id number] MD BUD [facility] [address] [place] [address] 10/24/2021 10:11:07 10/31/2021 12:54:44 Mixed urinary incontinence 367098420 N39.46 [id number] MD BUD [facility] [address] [place] [address] 10/30/2021 10:01:41 11/02/2021 13:12:22 Urinary tract infectious disease 42009163 N39.0 Health Concerns Section Related Observation LastModified by Organization Detai ls LastModified Time None Recorded Concern Status LastModified by Organization Details LastModified Time None Recorded Advance Directives Directive None Recorded Payers Encounter Date Sequence Insurance Name Policy Number Policy Randall Covered Member ID Randall Member ID Guarantor Name 10/24/2021 1 [place] [employer] Brittaney H Roland [id number] 1 Brittaney H Roland 10/24/2021 2 [place] [id number] Brittaney H Roland [id number] Brittaney H Roland 10/30/2021 1 [place] [employer] [facility] Brittaney Roland [id number] Brittaney Briceno Roland 10/30/2021 2 [place] [id number] Brittaney Hunterd [id number] Brittaney Roland Notes Date Note Type Note Provider [...] PVR = 125 mL Clay Hernandez MD [address], [place], [address], [facility] 10/27/2021 13:23:02 OBGyn Episode No OBEpisode recorded.
--- OUTSIDE RECORDS SUMMARY | 2024-03-31 08:18 | XMS_ITS | Encounter Summary ---
Author Organization [facility] Address [address] [place] [address] Care Team Providers Care Nurse Examiner Name Role Phone Elsewhere, Pcp Primary Care Provider Unavailabl e Reason for Referral * Outpatient (Routine) - Authorized Specialty Diagnoses / Procedures Referred By Contac t Referred To Contact Diagnoses Urinary Urge Incontinence Infection Urinary Tract Personal History Procedures URO Uroflow Caroline Hatfield D.O. [address] [place] [address] [facility] Referral ID Status Reason Start Date Expiration Date V isits Requested Visits Authorized [id number] Authorized 03/26/2024 03/26/2025 1 1 * Outpatient (Routine) - Authorized Specialty Diagnoses / Procedures Referred By Contac t Referred To Contact Urology Diagnoses Urinary Urge Incontinence Infection Urinary Tract Personal History Caroline Hatfield D.O. [address] [place] [address] Caroline Hatfield D.O. [address] [place] [phone] Referral ID Status Reason Start Date Expiration Date V isits Requested Visits Authorized [id number] Authorized 03/26/2024 09/25/2025 1 1 Reason for Visit * Reason Onset Date Comments Follow-up 03/26/2024 Encounter Details Date Type Department Care Team (Late st Contact Info) Description 03/26/2024 Clinical Communication Department of Urology in [place], [place] [address] [place] [address] Caroline Hatfield D.O. 200 [place] [address] Follow-up Social History Tobacco Use Types Packs/Day Years Used Date Smoking Tobacco: Former Cigarettes 0.8 15 0 06/23/1968 - 06/23/1978 Passive Smoke Exposure: Never Smokeless Tobacco: Never Comments:Quit and havent smo ked since. Over 40 yrs as non smoker Alcohol Use Standard Drinks/Week Comments Yes 0 (1 standard drink = 0.6 oz pure alcohol) Occational Beer or Glass of Wine [facility] Interview Answer Date Recorded In the past 12 months has [facility] [place] MD, gas, oil, or water [employer] threatened to shut off services in your home? No 11/20/2023 Humiliation, Afraid, Rape, and Kick questionnair e [...] do you attend [facility] or faith services? Patient declined 07/10/2022 Do you belong [...] at all 07/10/2022 [facility] - Occupational Stress Questionnaire Answer Date Recorded [...] exercise (like a brisk walk)? 3 days 11/20/2023 On average, how many minutes do you engage in exercise at this level? 60 min 11/20/2023 Hunger Vital Sign Answer Date Recorded Within the past 12 months, y ou worried that your food would run out before you got the money to buy more. Never true 11/20/19 24 Within the past 12 months, t he food you bought just didn't last and you didn't have money to get more. Never true 11/20/2023 PRAPARE - Transportation Answer Date Re corded In the past 12 months, has l ack of transportation kept you from medical appointments or from getting medications? No 10/23 In the past 12 months, has l ack of transportation kept you from meetings, work, or from getting things needed for daily living? No 11/20/2023 Nutrition Answer Date Recorded On average, how many serving s of fruits and vegetables do you eat per day (serving size is equal to 1 cup or approximately the size of a tennis ball)? 3-5 11/20/2023 Dental Answer Date Recorded Dental: Regular Dentist Yes 01/10/20 Employment Answer Date Recorded Employment status Retired 11/20/2023 Housing Stability Answer Date Recorded What is your living situation today? I have a [facility] place to live 11/20/2023 Education Answer Date Recorded What is the [...] Department Care Team (Latest Contact Info) Description 06/21/2024 2:45 PM CLIENT BUSINESS MANAGER Clinical Communication Virtual Review in [address] [address] 06/22/2024 10:15 AM CLIENT BUSINESS MANAGER Procedure visit Department of Urology in [address] [address] Caroline Hatfield D.O. [address] [place] [address] 06/22/2024 11:30 AM CLIENT BUSINESS MANAGER Office Visit Department of Urology in [address] [address] Caroline Hatfield D.O. [address] [place] [address] 06/22/2024 2:00 PM CLIENT BUSINESS MANAGER Office Visit Department of Dermatology in [address] [address] Gayle Kaba M.D. [address] [place] [address] Scheduled Orders Name Type Priority Associated Diagnoses Orde r Schedule URO Uroflow Procedure Routine Urinary Urge Incontinence Infection Urinary Tract Personal History Expected: 06/09/2024, Expires: 06/26/2025 Scheduled Referrals Name Type Priority Associated Diagnoses Orde r Schedule Urology office visit (clinic) Outpatient Referral Routine Urinary Urge Incontinence Infection Urinary Tract Personal History Expected: 06/09/2024, Expires: 06/26/2025 documented as of this encounter Visit Diagnoses Diagnosis Urinary Urge Incontinence- Primary Infection Urinary Tract Personal History documented in this encounter Care Teams Nurse Examiner Relationship Specialty Start Date End Date Elsewhere, Pcp PCP - General Internal Medicine 05/02/23 documented as of this encounter
--- OUTSIDE RECORDS SUMMARY | 2024-03-31 08:18 | XMS_ITS | Referral Summary ---
Author Organization [facility] Address [address] [place] [id number] Care Team Providers Care Email Campaign Manager Name Role Phone Elsewhere, Pcp Primary Care Provider Unavailabl e Source Comments Patient records contain information from all sites at [facility]. For routine questions regarding patient records, call [phone] during business hours, M-F 8:00 AM - 5:00 PM Central Time. Record requests for emergency care only can be directed to [phone] at any time.[facility] Encounters Date Type Department Care Team Description 03/26/2024 Clinical Communication Department of Urology in [place], [place] [address] [place] [phone] Caroline Hatfield D.O. Follow-up 02/16/2024 Refill Department of Urology in [place], [place] [address] [place] [phone] Caroline Hatfield D.O. Med Refill 01/06/2024 Clinical Communication Department of Urology in [place], [place] [address] [place] [phone] Caroline Hatfield D.O. 01/05/2024 9:45 AM CDT Procedure visit Department of Urology in [place], [place] [address] [place] [phone] Caroline Hatfield D.O. McKay, Roxane M, L.P.N. Feeling Of Incomplete Bladder Emptying [R39.14] (Primary Dx); Retention Urinary from Last 3 Months Allergies Active Allergy Reactions Criticality Noted Date Comments Adalimumab Rash High 02/29/2016 Codeine GI intolerance,Nausea Only,Other (see comments) Low 04/29/2008 Nausea Hydrochlorothiazide Rash High 04/29/2008 Rash Ibuprofen Other (see comments) 08/25/2016 Patient told not to take Sulfa (Sulfonamide Antibiotics) Hives only, no other systemic symptoms Low 10/28/2023 Medications Medication Sig Dispensed Refills Start Date [...] day with meals. 5 tablet 10/24/2023 Active oxyBUTYnin (DITROPAN-XL) 5 mg 24 hr tablet Take 1 tablet by mouth daily. 06/25/2021 Active nystatin (NYSTOP) 100,000 unit/gram powder Apply 1 application topically three times a day* 11/10/2023 Active miconazole (MICATIN) 2 % powder Apply topically. 06/10/2023 Active ciprofloxacin (CIPRO) 500 mg tablet TAKE ONE TABLET BY MOUTH TWICE DAILY for 3 days* 10/06/2023 Active cephalexin (KEFLEX) 500 mg capsule TAKE ONE CAPSULE BY MOUTH THREE TIMES DAILY FOR 10 DAYS* 08/14/2023 Active vancomycin (VANCOCIN) 125 mg capsule Take 1 capsule (125 mg total) by mouth as directed. To be utilized in conjunction with antibiotic therapy at a dose of 125 mg daily for the full duration of the antibiotic course, plus one additional week 30 capsule 11/21/2023 Active methenamine (Hiprex) 1 gram tablet Take 1 tablet (1 g total) by mouth 2 (two) times a day. Take with 500 mg vitamin C twice daily 180 tablet 11 02/17/2024 Active Hospital, Clinic, or Other Facility Administered [...] Disease 11/07/2009 Atherosclerotic Heart Diseas e Of [place] Coronary Artery Without Angina Pectoris 07/17/2009 Fatty [...] alcohol) Occational Beer or Glass of Wine [facility] Utilities Answer Date Recorded In the past 12 months has e [employer], gas, oil, or water [employer] threatened to shut off services in your [...] How often do you attend chur or yarsanism services? Patient declined 07/10/2022 Do you belong [...] and heating? Not hard at all 07/10/2022 [facility] - Occupational Stress [...] money to buy more. Never true 11/20/19 Within the past 12 months, t he [...] your living situation today? I have a [facility] place to live 11/20/2023 Education Answer [...] Sign Reading Time Taken Comments Blood Pressure 111/69 11/21/2023 1:40 PM CDT Pulse 66 11/21/2023 1:40 PM CDT Temperature 36.7 ??C (98.1 ??F) 05/14/2023 1 2:43 PM ROLLING MILL OPERATOR HELPER Respiratory Rate 21 05/14/2023 1:35 PM ROLLING MILL OPERATOR HELPER Oxygen Saturation 91% 05/14/2023 1:35 PM ROLLING MILL OPERATOR HELPER Inhaled Oxygen Concentration - - Weight 98.3 kg (216 lb 11.4 oz) 11/21/2023 1:40 PM CDT Height 164.8 cm (5' 4.88) 11/21/2023 1:40 PM CD T Body Mass Index 36.19 11/21/2023 1:40 PM CDT Plan of Treatment Upcoming Encounters Date Type Department Care Team (Latest Contact Info) Description 06/21/2024 2:45 PM ROLLING MILL OPERATOR HELPER Clinical Communication Virtual Review in [place], [place] [address] [place] [address] 06/22/2024 10:15 AM ROLLING MILL OPERATOR HELPER Procedure visit Department of Urology in [address] [phone] Caroline Hatfield D.O. [address] [place] [phone] 06/22/2024 11:30 AM ROLLING MILL OPERATOR HELPER Office Visit Department of Urology in [address] [phone] Caroline Hatfield D.O. [address] [place] [phone] 06/22/2024 2:00 PM ROLLING MILL OPERATOR HELPER Office Visit Department of Dermatology in [address] [phone] Gayle Kaba M.D. [address] [place] [phone] Medical Devices Implanted Type Area Air Defence Officer Device Identifier Shelf Expiration Date Model / Serial / Lot Hardware E.G. Pins/Screws/Lloyd s Hardware e.g. pins/screws/r ods Scalp Nevaeh-Screw 1.5x 4mm - Muñiz [id number] Implanted:Qty: 3 on 04/20/2012 Hardware e.g. pins/screws/r ods Nevaeh Description:Device Manufactu rer - Nevaeh Florina.. Device Status Text - [id number]. [place]-Mesh 90x90x.6mm(Gold ) - Muñiz [id number] Implanted:Qty: 1 on 04/20/2012 Hardware e.g. pins/screws/r ods Nevaeh Description:Device Manufactu rer - [place] Florina.. Device Status Text - [id number]. Knee Implant- 6 Implanted:11/21 (Quantity not on file) Knee Implant Left: Knee Knee Implant- 6 Implanted:11/21 (Quantity not on file) Knee Implant Right: Knee Fanshawe Richard Fuzzy 1 X 1 - Muñiz [id number] Implanted:Qty: 1 on 04/20/2012 Mesh or Patch Like.fm Description:Device Manufactu Xetal. Device Status Text - MESHPATCH-1667. [facility] Data - [id number]. Gen Nrs F15 6.1a89g19 - [id number] - [id number] Implanted:Qty: 1 on 05/14/2023 by Caroline Hatfield D.O. at [facility] Amperion/Saygent Sacral Nerve Stimulator N/A: Back [employer]on[employer] 01/22/2024 4101 / [id number] / Kt Piper Ld Str Crv Stylt Sn - [id number] - [id number] Implanted:Qty: 1 on 05/14/2023 by Caroline Hatfield D.OElvis at [facility] Nguyen/Saygent Sacral Nerve Stimulator N/A: Back Axonics Modulation [employer] Inc 10/04/2025 1201 / [id number] / Prgrmr Pt Rem Ctrl Sn - [id number] - [id number] Implanted:Qty: 1 on 05/14/2023 by Caroline Hatfield D.O. at [facility] Nguyen/Saygent Sacral Nerve Stimulator N/A: Back Axonics Modulation [employer] Inc 05/22/2033 2301 / [id number] / Procedures Procedure Name Priority Date/Time Associated Diagnosis Comments URO UROFLOW Routine 01/05/2024 9:45 AM CDT Retention Urinary CREATININE WITH EGFR, S/P Routine 06/12/2023 9:37 AM ROLLING MILL OPERATOR HELPER Ileitis Crohn's (HCC) BASIC METABOLIC PANEL, S/P Routine 05/01/2023 2:55 PM ROLLING MILL OPERATOR HELPER Preanesthetic Medical Exam COLONOSCOPY Routine 05/15/2022 10:57 AM ROLLING MILL OPERATOR HELPER Crohn's Disease (HCC) Infection Urinary Tract Recurrent BI BREAST SCREENING BILATERAL Routine 03/04/2014 1:57 PM CDT from Last 3 Months or Most Recently Relevant to Health Maintenance Results * URO Uroflow (01/05/2024 9:45 AM CDT) Narrative Iván Gamboa M.D. - 01/05/2024 9:45 AM CDT Iván Gamboa M.D. ? 01/05/2024 12:12 PM REASON FOR VISIT: Uroflow: The patient here for a complex uroflow via calibrated electronic equipment and a residual urine check by ultrasound. FINDINGS: Peak flow 24 ml/sec Average flow 13 ml/sec Total voided volume 463 mls Residual urine 190 ml by ultrasound Detrusor flow pattern IMPRESSION: Good Q max with normal bladder capacity and elevated postvoid residual. Caroline Hatfield D.O. UROLOGY ORDERABLES * Creatinine with Estimated GFR (06/12/2023 9:37 AM ROLLING MILL OPERATOR HELPER) Creatinine 0.90 0.59 - 1.04 mg/dL 06/12/2023 11:03 AM ROLLING MILL OPERATOR HELPER DTL Estimated GFR (eGFR) 70 >=60 mL/min/BSA 06/12/2023 11:03 AM ROLLING MILL OPERATOR HELPER DTL Comment: Estimated GFR calculated using the 2020 CKD_EPI creatinine equation. Blood (Blood, Venous) 06/12/2023 9:37 AM ROLLING MILL OPERATOR HELPER 06/12/2023 10:22 AM ROLLING MILL OPERATOR HELPER Gali Porter M.D. LAB BLOOD ADD-ON [facility] [place] [address] [place] [address], [place] DTL [facility] [address] [place] [address] * (ABNORMAL) Basic Metabolic Panel (05/01/2023 2:55 PM ROLLING MILL OPERATOR HELPER) Potassium, S 4.1 3.6 - 5.2 mmol/L 05/01/2023 3:48 PM ROLLING MILL OPERATOR HELPER DTL Sodium, S 140 135 - 145 mmol/L 05/01/2023 3:48 PM ROLLING MILL OPERATOR HELPER DTL Chloride, S 104 98 - 107 mmol/L 05/01/2023 3:48 PM ROLLING MILL OPERATOR HELPER DTL Bicarbonate, S 24 22 - 29 mmol/L 05/01/2023 3:48 PM ROLLING MILL OPERATOR HELPER DTL Anion Gap 12 7 - 15 05/01/2023 3:48 PM ROLLING MILL OPERATOR HELPER DTL BUN (Blood Urea Nitrogen), S 15 6 - 21 mg/dL 05/01/2023 3:48 PM ROLLING MILL OPERATOR HELPER DTL Creatinine 1.14(H) 0.59 - 1.04 mg/dL 05/01/2023 3:48 PM ROLLING MILL OPERATOR HELPER DTL Estimated GFR (eGFR) 52(L) >=60 mL/min/BSA 05/01/2023 3:48 PM ROLLING MILL OPERATOR HELPER DTL Comment: Estimated GFR calculated using the 2020 CKD_EPI creatinine equation. Calcium, Total, S 9.1 8.8 - 10.2 mg/dL 05/01/2023 3:48 PM ROLLING MILL OPERATOR HELPER DTL Glucose, S 137 70 - 140 mg/dL 05/01/2023 3:48 PM ROLLING MILL OPERATOR HELPER DTL Blood (Blood, Venous) 05/01/2023 2:55 PM ROLLING MILL OPERATOR HELPER 05/01/2023 3:27 PM ROLLING MILL OPERATOR HELPER Benita Barber APRN C.N.P., M.S.N. LA B BLOOD ADD-ON [facility] [place] [address] [place] [address], [facility] DTL [facility] [address] [place] [address] * BI Breast Screening Bilateral (03/04/2014 1:57 [...] Recently Relevant to Health Maintenance Care Teams Email Campaign Manager Relationship Specialty Start Date End Date Elsewhere, Pcp PCP - General Internal Medicine 05/02/23
--- OUTSIDE RECORDS SUMMARY | 2024-03-31 08:18 | XMS_ITS | Clinical Summary ---
Author Organization [facility] Address [address] [place] [address] Care Team Providers Care Lead Android Developer Name Role Phone Elsewhere, Pcp Primary Care Provider Unavailabl e Source Comments Patient records contain information from all sites at [facility]. For routine questions regarding patient records, call [phone] during business hours, M-F 8:00 AM - 5:00 PM Central Time. 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 Follow-up 02/16/2024 Refill Department of Urology in [place], [place] [address] [place] [address] Caroline Hatfield D.O. Med Refill 01/06/2024 Clinical Communication Department of Urology in [place], [place] [address] [place] [address] Caroline Hatfield D.O. 01/05/2024 9:45 AM CDT Procedure visit Department of Urology in [place], [place] [address] [place] [address] Caroline Hatfield D.O. McKay, Roxane M, YulyPElvisN. Feeling Of Incomplete Bladder Emptying [R39.14] (Primary Dx); Retention Urinary from Last 3 Months Immunizations Name Administration [...] Ashlee Father Chuckie Maternal Grandmother Karen Mother Minet Sister 1 [...] alcohol) Occational Beer or Glass of Wine [facility] GetO2ities Answer Date Recorded In the past 12 months has [facility] [employer], gas, oil, or water [employer] threatened to shut off services in your [...] How often do you attend chur or christian services? Patient declined 07/10/2022 Do you belong to any clubs o r organizations such as samaritan groups, unions, fraternal or [...] and heating? Not hard at all 07/10/2022 [facility] Occupat ional Health - Occupational [...] your living situation today? I have a [facility] place to live 11/20/2023 Education Answer [...] ??C (98.1 ??F) 05/14/2023 1 2:43 PM ODD JOBS DAY WORKER Respiratory Rate 21 05/14/2023 1:35 PM ODD JOBS DAY WORKER Oxygen Saturation 91% 05/14/2023 1:35 PM ODD JOBS DAY WORKER Inhaled Oxygen Concentration - - Weight 98.3 kg (216 lb 11.4 oz) 11/21/2023 1:40 PM CDT Height 164.8 cm (5' 4.88) 11/21/2023 1:40 PM CD T Body Mass Index 36.19 11/21/2023 1:40 PM CDT Plan of Treatment Upcoming Encounters Date Type Department Care Team (Latest Contact Info) Description 06/21/2024 2:45 PM ODD JOBS DAY WORKER Clinical Communication Virtual Review in [place], [place] [address] [place] [address] 06/22/2024 10:15 AM ODD JOBS DAY WORKER Procedure visit Department of Urology in [place], [place] [address] [place] [phone] Caroline Hatfield D.O. [address] [place] [phone] 06/22/2024 11:30 AM ODD JOBS DAY WORKER Office Visit Department of Urology in [place], [place] [address] [place] [phone] Caroline Hatfield D.O. [address] [place] [phone] 06/22/2024 2:00 PM ODD JOBS DAY WORKER Office Visit Department of Dermatology in [place], [place] [address] [place] [address] Gayle Kaba M.D. [address] [place] [phone] Health Maintenance Due Date Last Done Comments Bone Density Scan (Osteoporosis Screen) 1954 CT Colonography 1954 Cologuard 1954 Hepatitis C Screening 1954 Lipid (Cholesterol) Screening 1954 Mammogram 03/23/2016 03/23/2015 (Perf ormed elsewhere), 03/04/2014, 01/14/2013, Additional history exists Depression Screening (Annual PHQ-2) 06/23/2023 Fall Risk Screen (Annual) 06/23/2023 COVID-19 Vaccine ( season) 2024 04/03/2023, 12/11/2022, 04/17/2022, Additional history exists Influenza Vaccine (#1) 2024 , 04/17/2022, 04/11/2021, Additional history exists Potassium Level 05/01/2024 05/01/2023, 01/22, 08/27/2019, Additional history exists Sodium Level 05/01/2024 05/01/2023, 01/22, 08/27/2019, Additional history exists Creatinine Level (Kidney Function Test) 06/12/2024 06/12/2023, 05/01/2023, 05/14/2022, Additional history exists Office Visit for Blood Pressure Check / Re-check 11/20/2024 11/21/2023 Fasting Glucose for Diabetes Screening 05/01/2026 05/01/2023, [...] 04/04/2020 Zoster Vaccines Completed 12/11/2022, 08/22, 02/23/2015 RSV vaccine - (32-36 weeks) or 60+ years Completed 07/30/2023 HPV Vaccines Aged Out No longer eligi ble based on patient's age to complete this topic Medical Devices Implanted Type Area Kiln Transfer Operator Device Identifier Shelf Expiration Date Model / Serial / Lot Hardware E.G. Pins/Screws/Lloyd s Hardware e.g. pins/screws/r ods Scalp Nevaeh-Screw 1.5x 4mm - Muñiz [id number] Implanted:Qty: 3 on 04/20/2012 Hardware e.g. pins/screws/r ods [place] Description:Device Manufactu Materia - Nevaeh Altobridge.. Device Status Text - [id number]. [place]-Mesh 90x90x.6mm(Gold ) - Muñiz [id number] Implanted:Qty: 1 on 04/20/2012 Hardware e.g. pins/screws/r ods Nevaeh Description:Device Manufactu [employer].. Device Status Text - [id number]. Knee Implant- 6 Implanted:11/21 (Quantity not on file) Knee Implant Left: Knee Knee Implant- 6 Implanted:11/21 (Quantity not on file) Knee Implant Right: Knee [place] Richard Fuzzy 1 X 1 - Muñiz [id number] Implanted:Qty: 1 on 04/20/2012 Mesh or Patch Fredio Description:Device Manufactu Nokter. Device Status Text - MESHPATCH-1667. [facility] Data - [id number]. Gen [facility] F15 6.4c20l71 - [id number] - [id number] Implanted:Qty: 1 on 05/14/2023 by Caroline Hatfield D.O. at [facility] Nguyen/Gonda Sacral Nerve Stimulator N/A: Back Axonics [employer] Inc 01/22/2024 4101 / [id number] / Kt Piper Ld Str Crv Stylt Snm - [id number] - [id number] Implanted:Qty: 1 on 05/14/2023 by Caroline Hatfield D.O. at [facility] Nguyen/Gonda Sacral Nerve Stimulator N/A: Back Axonics [employer] Inc 10/04/2025 1201 / [id number] / Prgrmr Pt Rem Ctrl Snm - [id number] - [id number] Implanted:Qty: 1 on 05/14/2023 by Caroline Hatfield D.O. at [facility] Nguyen/Gonda Sacral Nerve Stimulator N/A: Back [employer]onics Mod[employer], Inc 05/22/2033 2301 / [id number] / Procedures Procedure Name Priority Date/Time Associated Diagnosis Comments URO UROFLOW Routine 01/05/2024 9:45 AM CDT Retention Urinary CREATININE WITH EGFR, S/P Routine 06/12/2023 9:37 AM ODD JOBS DAY WORKER Ileitis Crohn's (HCC) BASIC METABOLIC PANEL, S/P Routine 05/01/2023 2:55 PM ODD JOBS DAY WORKER Preanesthetic Medical Exam COLONOSCOPY Routine 05/15/2022 10:57 AM ODD JOBS DAY WORKER Crohn's Disease (HCC) Infection Urinary Tract Recurrent [...] Creatinine with Estimated GFR (06/12/2023 9:37 AM ODD JOBS DAY WORKER) Creatinine 0.90 0.59 - 1.04 mg/dL 06/12/2023 11:03 AM ODD JOBS DAY WORKER DTL Estimated GFR (eGFR) 70 >=60 mL/min/BSA 06/12/2023 11:03 AM ODD JOBS DAY WORKER DTL Comment: Estimated GFR calculated using the 2020 CKD_EPI creatinine equation. Blood (Blood, Venous) 06/12/2023 9:37 AM ODD JOBS DAY WORKER 06/12/2023 10:22 AM ODD JOBS DAY WORKER Gali Porter M.D. LAB BLOOD ADD-ON [facility] [address] [place] [address], [facility] [address] [place] [address] * (ABNORMAL) Basic Metabolic Panel (05/01/2023 2:55 PM ODD JOBS DAY WORKER) Potassium, S 4.1 3.6 - 5.2 mmol/L 05/01/2023 3:48 PM ODD JOBS DAY WORKER DTL Sodium, S 140 135 - 145 mmol/L 05/01/2023 3:48 PM ODD JOBS DAY WORKER DTL Chloride, S 104 98 - 107 mmol/L 05/01/2023 3:48 PM ODD JOBS DAY WORKER DTL Bicarbonate, S 24 22 - 29 mmol/L 05/01/2023 3:48 PM ODD JOBS DAY WORKER DTL Anion Gap 12 7 - 15 05/01/2023 3:48 PM ODD JOBS DAY WORKER DTL BUN (Blood Urea Nitrogen), S 15 6 - 21 mg/dL 05/01/2023 3:48 PM ODD JOBS DAY WORKER DTL Creatinine 1.14(H) 0.59 - 1.04 mg/dL 05/01/2023 3:48 PM ODD JOBS DAY WORKER DTL Estimated GFR (eGFR) 52(L) >=60 mL/min/BSA 05/01/2023 3:48 PM ODD JOBS DAY WORKER DTL Comment: Estimated GFR calculated using the 2020 CKD_EPI creatinine equation. Calcium, Total, S 9.1 8.8 - 10.2 mg/dL 05/01/2023 3:48 PM ODD JOBS DAY WORKER DTL Glucose, S 137 70 - 140 mg/dL 05/01/2023 3:48 PM ODD JOBS DAY WORKER DTL Blood (Blood, Venous) 05/01/2023 2:55 PM ODD JOBS DAY WORKER 05/01/2023 3:27 PM ODD JOBS DAY WORKER Benita Barber APRN, C.N.P., M.S.N. LA B BLOOD ADD-ON [facility] [address] [place] [address], [facility] DTL [facility] [address] [place] [address] * BI Breast Screening Bilateral (03/04/2014 1:57 [...] Recently Relevant to Health Maintenance Care Teams Lead Android Developer Relationship Specialty Start Date End Date Elsewhere, Pcp PCP - General Internal Medicine 05/02/23
--- OUTSIDE RECORDS SUMMARY | 2024-03-31 08:18 | XMS_ITS ---
Author Organization [facility] Address [address] [place] [address] Care Team Providers Care Open Hearth Laborer Name Role Phone Unavailable Unavailable Unavailable Surgery Details Not on file Complications Check Surgery Details section. Procedure Estimated Blood Loss Check Surgery Details section. Procedure Findings Check Surgery Details section. Procedure Specimens Taken Check Surgery Details section.
--- OUTSIDE RECORDS SUMMARY | 2024-03-31 08:19 | XMS_ITS | Encounter Summary ---
Author Organization [facility] Address [address] [place] [address] Care Team Providers Care Autoclave Operator Name Role Phone Elsewhere, Pcp Primary Care Provider Unavailabl e Reason for Visit * Outpatient (Routine) - Closed Specialty Diagnoses / Procedures Referred By Fidelia t Referred To Contact Diagnoses Retention Urinary Procedures URO Uroflow Caroline Hatfield D.O. [address] [place] [phone] [facility] Referral ID Status Reason Start Date Expiration Date Visits Re quested Visits Authorized [id number] Closed 12/09/2023 12/08/2024 1 1 Encounter Details Date Type Department Care Team (Latest Contact Info) Description 01/05/2024 9:45 AM CDT Procedure visit Department of Urology in [place], [place] [address] [place] [phone] Caroline Hatfield D.O. [address] [place] [address] [phone] Precious Rush, LElvisPElvisNElvis [address] [place] [phone] Feeling Of Incomplete Bladder Emptying [R39.14] (Primary Dx); Retention Urinary Social History Tobacco Use Types Packs/Day Years Used Date Smoking Tobacco: Former Cigarettes 0.8 15 0 06/23/1968 - 06/23/1978 Passive Smoke Exposure: Never Smokeless Tobacco: Never Comments:Quit and havent smo ked since. Over 40 yrs as non smoker Alcohol Use Standard Drinks/Week Comments Yes 0 (1 standard drink = 0.6 oz pure alcohol) Occational Beer or Glass of Wine [facility] Utilities Answer Date Recorded In the past 12 months has e [email or web address], [employer], oil, or water [employer] threatened to shut off services in your [...] How often do you attend chur or jewish services? Patient declined 07/10/2022 Do you belong to any clubs o r organizations such as nondenominational groups, unions, fraternal or [...] and heating? Not hard at all 07/10/2022 [facility] [place] [facility] - Occupational Stress Questionnaire Answer Date Recorded [...] your living situation today? I have a [facility] [place] place to live 11/20/2023 Education Answer Date [...] as of this encounter Progress Notes * Precious Rush L.P.N. - 01/05/2024 9:45 AM CDT CHIEF COMPLAINT Patient here for a complex uroflow via calibrated electronic equipment and a residual urine check by ultrasound. IMPRESSION/REPORT/PLAN Caroline Hatfield M.D. ordered the patient to have a complex uroflow with residual urine check via ultrasound. Patient had a strong urge to void. Uroflow was completed at this time. Patient voided 463 mL's and had a ultrasound residual of 190 mL's. Patient rates pain at 0 on the 0 to 10 pain scale postprocedure. documented in this encounter Procedure Notes * Iván Gamboa M.D. - 01/05/2024 9:45 AM CDTAssociated Order(s): URO UROFLOW REASON FOR VISIT: Uroflow: The patient here for a complex uroflow via calibrated electronic equipment and a residual urine check by ultrasound. FINDINGS: Peak flow 24 ml/sec Average flow 13 ml/sec Total voided volume 463 mls Residual urine 190 ml by ultrasound Detrusor flow pattern IMPRESSION: Good Q max with normal bladder capacity and elevated postvoid residual. documented in this encounter Plan of Treatment Upcoming Encounters Date Type Department Care Team (Latest Contact Info) Description 06/21/2024 2:45 PM FASHION PHOTOGRAPHER Clinical Communication Virtual Review in [place], [place] 200 [place] [phone] 06/22/2024 10:15 AM FASHION PHOTOGRAPHER Procedure visit Department of Urology in [place], [place] [address] [place] [phone] Caroline Hatfield D.O. [address] [place] [phone] 06/22/2024 11:30 AM FASHION PHOTOGRAPHER Office Visit Department of Urology in [place], [place] [address] [place] [phone] Caroline Hatfield D.O. [address] [place] [phone] 06/22/2024 2:00 PM FASHION PHOTOGRAPHER Office Visit Department of Dermatology in [place], [place] [address] [place] [phone] Gayle Kaba M.D. [address] [place] [phone] documented as of this encounter Procedures Procedure Name Priority Date/Time Associated Diagnosis Comments URO UROFLOW Routine 01/05/2024 9:45 AM CDT Retention Urinary documented in this encounter Results * URO Uroflow (01/05/2024 9:45 AM [...] postvoid residual. Caroline Hatfield D.O. UROLOGY ORDERABLES documented in this encounter Visit Diagnoses Diagnosis Feeling Of Incomplete Bladder Emptying [R39.14]- Primary Retention Urinary documented in this encounter Care Teams Autoclave Operator Relationship Specialty Start Date End Date Elsewhere, Pcp PCP - General Internal Medicine 05/02/23 documented as of this encounter
--- OUTSIDE RECORDS SUMMARY | 2024-03-31 08:19 | XMS_ITS | Encounter Summary ---
Author Organization [facility] Address [address] [place] [address] Care Team Providers Care Second Helper Name Role Phone Elsewhere, Pcp Primary Care Provider Unavailabl e Reason for Visit * Reason Onset Date Comments Accelerated infusion rate 12/26/2023 Encounter Details Date Type Department Care Team (Latest Contact Info) Description 12/26/2023 Clinical Communication Division of Gastroenterology in [place], [place] [address] [place] [phone] Erica Nguyen M.D. [address] [place] [phone] Accelerated infusion rate Social History Tobacco Use Types Packs/Day Years Used Date Smoking Tobacco: Former Cigarettes 0.8 15 0 06/23/1968 - 06/23/1978 Passive Smoke Exposure: Never Smokeless Tobacco: Never Comments:Quit and havent smo ked since. Over 40 yrs as non smoker Alcohol Use Standard Drinks/Week Comments Yes 0 (1 standard drink = 0.6 oz pure alcohol) Occational Beer or Glass of Wine [facility] Utilities Answer Date Recorded In the past 12 months has [facility] electric, gas, oil, or water company threatened to shut off services in your [...] do you attend [facility] or [facility]aritan services? Patient declined 07/10/2022 Do you belong to any clubs o r organizations such as taoist groups, unions, fraternal or athletic groups, or [...] and heating? Not hard at all 07/10/2022 [facility] [place] of Occupat ional Health - Occupational Stress [...] your living situation today? I have a [facility] place to live 11/20/2023 Education Answer Date [...] (Latest Contact Info) Description 06/21/2024 2:45 PM MARINE ARCHITECT Clinical Communication Virtual Review in [place], [place] [address] [place] [phone] 06/22/2024 10:15 AM MARINE ARCHITECT Procedure visit Department of Urology in [place], [place] [address] [place] [phone] Caroline Hatfield D.O. [address] [place] [phone] 06/22/2024 11:30 AM MARINE ARCHITECT Office Visit Department of Urology in [place], [place] [address] [place] [phone] Caroline Hatfield D.O. [address] [place] [phone] 06/22/2024 2:00 PM MARINE ARCHITECT Office Visit Department of Dermatology in [place], [place] [address] [place] [phone] Gayle Kaba M.D. [address] [place] [phone] documented as of this encounter Visit Diagnoses Not on filedocumented in this encounter Care Teams Second Helper Relationship Specialty Start Date End Date Elsewhere, Pcp PCP - General Internal Medicine 05/02/23 documented as of this encounter
--- OUTSIDE RECORDS SUMMARY | 2024-03-31 08:19 | XMS_ITS | Encounter Summary ---
Author Organization [facility] Address [address] [place] [address] Care Team Providers Care Sales Project Manager Name Role Phone Elsewhere, Pcp Primary Care Provider Unavailabl e Encounter Details Date Type Department Care Team (Late st Contact Info) Description 03/02/2015 Historical Ophthalmology [facility] Cayetano Chand M.D., Ph.D. [address] [place] [phone] Social History Tobacco Use Types Packs/Day Years [...] On February 01, 2015, she saw her bull ladle tender, Dr. Liu for evaluation of this. She [...] gland dysfunction CDM Reports - EYEGEN Id: [id number] Status: Fnl documented in this encounter Plan of Treatment Upcoming Encounters Date Type Department Care Team (Latest Contact Info) Description 06/21/2024 2:45 PM WILDFIRE PREVENTION SPECIALIST Clinical Communication Virtual Review in [place], [place] 200 [place] [phone] 06/22/2024 10:15 AM WILDFIRE PREVENTION SPECIALIST Procedure visit Department of Urology in [address] [place] [address] [phone] Caroline Hatfield D.O. [address] [place] [phone] 06/22/2024 11:30 AM WILDFIRE PREVENTION SPECIALIST Office Visit Department of Urology in [address] [place] [address] [phone] Caroline Hatfield D.O. [address] [place] [phone] 06/22/2024 2:00 PM WILDFIRE PREVENTION SPECIALIST Office Visit Department of Dermatology in [address] [place] [address] [phone] Gayle Kaba M.D. [address] [place] [phone] documented as of this encounter Visit Diagnoses Not on filedocumented in this encounter Care Teams Sales Project Manager Relationship Specialty Start Date End Date Elsewhere, Pcp PCP - General Internal Medicine 05/02/23 documented as of this encounter
--- OUTSIDE RECORDS SUMMARY | 2024-03-31 08:19 | XMS_ITS | Encounter Summary ---
Author Organization [facility] Address [address] [place] [address] Care Team Providers Care Oral Surgery Assistant Name Role Phone Elsewhere, Pcp Primary Care Provider Unavailabl e Encounter Details Date Type Department Care Team (Late st Contact Info) Description 01/06/2024 Clinical Communication Department of Urology in [place], [place] [address] [place] [phone] Caroline Hatfield D.O. [address] [place] [phone] Social History Tobacco Use Types Packs/Day Years Used Date Smoking Tobacco: Former Cigarettes 0.8 15 0 06/23/1968 - 06/23/1978 Passive Smoke Exposure: Never Smokeless Tobacco: Never Comments:Quit and havent smo ked since. Over 40 yrs as non smoker Alcohol Use Standard Drinks/Week Comments Yes 0 (1 standard drink = 0.6 oz pure alcohol) Occational Beer or Glass of Wine [facility] Utilities Answer Date Recorded In the past 12 months has [employer], oil, or water [employer] threatened to shut off services in your [...] How often do you attend chur or christianity services? Patient declined 07/10/2022 Do you belong to any clubs o r organizations such as voodoo groups, unions, fraBetween or athletic groups, or school groups? Yes [...] your living situation today? I have a [facility] place to live 11/20/2023 Education Answer [...] (Latest Contact Info) Description 06/21/2024 2:45 PM HANDYMAN Clinical Communication Virtual Review in [place], [place] [address] [place] [phone] 06/22/2024 10:15 AM HANDYMAN Procedure visit Department of Urology in [place], [place] [address] [place] [phone] Caroline Hatfield D.O. [address] [place] [phone] 06/22/2024 11:30 AM HANDYMAN Office Visit Department of Urology in [place], [place] [address] [place] [phone] Caroline Hatfield D.O. [address] [place] [phone] 06/22/2024 2:00 PM HANDYMAN Office Visit Department of Dermatology in [place], [place] [address] [place] [phone] Gayle Kaba M.D. [address] [place] [phone] documented as of this encounter Visit Diagnoses Not on filedocumented in this encounter Care Teams Oral Surgery Assistant Relationship Specialty Start Date End Date Elsewhere, Pcp PCP - General Internal Medicine 05/02/23 documented as of this encounter
--- OUTSIDE RECORDS SUMMARY | 2024-03-31 08:19 | XMS_ITS | Encounter Summary ---
Author Organization [facility] Address [address] [place] [address] Care Team Providers Care Precipitator Name Role Phone Elsewhere, Pcp Primary Care Provider Unavailabl e Reason for Visit * Reason Comments Med Refill Encounter Details Date Type Department Care Team (Late st Contact Info) Description 02/16/2024 Refill Department of Urology in [place], [place] [address] [place] [phone] Caroline Hatfield D.O. [address] [place] [phone] Med Refill Social History Tobacco Use Types Packs/Day Years Used Date Smoking Tobacco: Former Cigarettes 0.8 15 0 06/23/1968 - 06/23/1978 Passive Smoke Exposure: Never Smokeless Tobacco: Never Comments:Quit and havent smo ked since. Over 40 yrs as non smoker Alcohol Use Standard Drinks/Week Comments Yes 0 (1 standard drink = 0.6 oz pure alcohol) Occational Beer or Glass of Wine [facility] Utilities Answer Date Recorded In the past 12 months has [facility] [employer], gas, oil, or water [employer] threatened to shut off services in your [...] often do you attend [facility] or islam services? Patient declined 07/10/2022 Do you belong to any clubs o r organizations such as adventism groups, unions, fraternal or [...] your living situation today? I have a [facility] place to live 11/20/2023 Education Answer [...] (Latest Contact Info) Description 06/21/2024 2:45 PM BEAM HOUSE INSPECTOR Clinical Communication Virtual Review in [place], [place] 200 [place] [phone] 06/22/2024 10:15 AM BEAM HOUSE INSPECTOR Procedure visit Department of Urology in [place], [place] [address] [place] [phone] Caroline Hatfield D.O. [address] [place] [phone] 06/22/2024 11:30 AM BEAM HOUSE INSPECTOR Office Visit Department of Urology in [place], [place] [address] [place] [phone] Caroline Hatfield D.O. [address] [place] [phone] 06/22/2024 2:00 PM BEAM HOUSE INSPECTOR Office Visit Department of Dermatology in [place], [place] [address] [place] [phone] Gayle Kaba M.D. [address] [place] [phone] documented as of this encounter Visit Diagnoses Not on filedocumented in this encounter Care Teams Precipitator Relationship Specialty Start Date End Date Elsewhere, Pcp PCP - General Internal Medicine 05/02/23 documented as of this encounter
--- OUTSIDE RECORDS SUMMARY | 2024-03-31 08:19 | XMS_ITS | Encounter Summary ---
Author Organization [facility] Address [address] [place] [address] Care Team Providers Care Developer Architect Name Role Phone Elsewhere, Pcp Primary Care Provider Unavailabl e Reason for Visit * Reason Onset Date Comments Urine Results 12/03/2023 Encounter Details Date Type Department Care Team (Late st Contact Info) Description 12/03/2023 Clinical Communication Department of Urology in [place], [place] [address] [place] [phone] Caroline Hatfield D.O. [address] [place] [phone] Urine Results Social History Tobacco Use Types Packs/Day Years Used Date Smoking Tobacco: Former Cigarettes 0.8 15 0 06/23/1968 - 06/23/1978 Passive Smoke Exposure: Never Smokeless Tobacco: Never Comments:Quit and havent smo ked since. Over 40 yrs as non smoker Alcohol Use Standard Drinks/Week Comments Yes 0 (1 standard drink = 0.6 oz pure alcohol) Occational Beer or Glass of Wine [facility] Utilities Answer Date Recorded In the past 12 months has [facility] electric, gas, oil, or water company threatened [...] 07/10/2022 How often do you attend [facility] or cheondoism services? Patient declined 07/10/2022 [...] and heating? Not hard at all 07/10/2022 [employer] of Occupat ional Health - Occupational Stress [...] (Latest Contact Info) Description 06/21/2024 2:45 PM HEATER ROOM HELPER Clinical Communication Virtual Review in [place], [place] [address] [place] [phone] 06/22/2024 10:15 AM HEATER ROOM HELPER Procedure visit Department of Urology in [place], [place] [address] [place] [phone] Caroline Hatfield D.O. [address] [place] [phone] 06/22/2024 11:30 AM HEATER ROOM HELPER Office Visit Department of Urology in [place], [place] [address] [place] [phone] Caroline Hatfield D.O. [address] [place] [phone] 06/22/2024 2:00 PM HEATER ROOM HELPER Office Visit Department of Dermatology in [place], [place] [address] [place] [phone] Gayle Kaba M.D. [address] [place] [phone] documented as of this encounter Visit Diagnoses Not on filedocumented in this encounter Care Teams Developer Architect Relationship Specialty Start Date End Date Elsewhere, Pcp PCP - General Internal Medicine 05/02/23 documented as of this encounter
[2024-03-31 08:45] VITALS: BMI 35.7
== END 2024-03-31 08:16 | disposition home or self-care (01) ==
LOC: NUTRITION 08:15
PROVIDERS: PCP Internal Medicine; Visit Provider Dietitian, Registered
DX: E66.9 Obesity, unspecified (principal); Z71.3 Dietary counseling and surveillance
CPT/HCPCS: G0463

== ENCOUNTER 2024-04-13 11:45 | Outpatient (RCR) | payer MEDICARE, BC, SELFPAY ==
[2023-11-20] MEDS: ACETAMINOPHEN 325 MG TABLET 650 MG PO (12:02)
[2023-11-20] MEDS: diphenhydrAMINE 25 MG CAPSULE PO (12:03)
[2023-11-20] MEDS: METHYLPREDNISOLONE SOD SUCC 40 MG/ML IVP (12:15)
[2023-11-20] MEDS: 0.9 % SODIUM CHLORIDE 250 ml 250 ML 35 ML IV (12:16)
[2023-11-20] MEDS: TUBING PRIMARY IV (12:52)
[2023-11-20] MEDS: INFLIXIMAB IV (12:52)
[2023-11-20] MEDS: [UNRECOGNIZED DRUG - OTHER] IV (12:52)
[2023-11-20 16:16] VITALS: BP 133/80; PULSE 65; RESP 16; TEMP 35.9; O2SAT 95
[2023-12-26 11:44] VITALS: BP 111/69; PULSE 66; RESP 16; TEMP 36.4; O2SAT 95
[2023-12-26] MEDS: diphenhydrAMINE 25 MG CAPSULE PO (12:15)
[2023-12-26] MEDS: ACETAMINOPHEN 325 MG TABLET 650 MG PO (12:16)
[2023-12-26] MEDS: METHYLPREDNISOLONE SOD SUCC 40 MG/ML IVP (12:17)
[2023-12-26] MEDS: INFLIXIMAB IV (12:56)
[2023-12-26] MEDS: TUBING PRIMARY IV (12:56)
[2023-12-26] MEDS: [UNRECOGNIZED DRUG - OTHER] IV (12:56)
[2023-12-26] MEDS: 0.9 % SODIUM CHLORIDE 250 ml 250 ML 35 ML IV (12:57)
[2024-01-30 11:17] VITALS: BP 131/78; PULSE 60; RESP 18; TEMP 36.3; O2SAT 94
[2024-01-30 11:38] VITALS: TEMP 36.3
[2024-01-30] MEDS: diphenhydrAMINE 25 MG CAPSULE PO (11:38)
[2024-01-30] MEDS: 0.9 % SODIUM CHLORIDE 250 ml 250 ML 35 ML IV (11:38)
[2024-01-30] MEDS: METHYLPREDNISOLONE SOD SUCC 40 MG/ML IVP (11:38)
[2024-01-30] MEDS: ACETAMINOPHEN 325 MG TABLET 650 MG PO (11:38)
[2024-01-30] MEDS: [UNRECOGNIZED DRUG - OTHER] IV (12:02)
[2024-01-30] MEDS: TUBING PRIMARY IV (12:02)
[2024-01-30] MEDS: INFLIXIMAB IV (12:02)
--- NOTE | 2024-01-30 12:16 | ONC.NURNOTE ---
Infliximab rapid infusion started at 1202. VS: 134/82, 97.9, HR 59, RR 16, 95% on RA. Patient stated she felt warm, was observed that her face began to get red. Infusion was stopped, VS were taken again at 1208: 129/82, 97.4, HR 60, 95%. No change in VS noted. Attempted to restart at the rapid infusion rate but again started to become red in the face. Decision was made to decrease the rate. Patient did not complain of shortness of breath, heaviness in chest, or any other symptoms. TRACI Rod in room while event was taking place.
[2024-03-05 11:19] VITALS: BP 149/71; PULSE 72; RESP 16; TEMP 36.5; O2SAT 95
[2024-03-05] MEDS: ACETAMINOPHEN 325 MG TABLET 650 MG PO (11:36)
[2024-03-05] MEDS: diphenhydrAMINE 25 MG CAPSULE PO (11:36)
[2024-03-05] MEDS: 0.9 % SODIUM CHLORIDE 250 ml 250 ML 35 ML IV (11:47)
[2024-03-05] MEDS: METHYLPREDNISOLONE SOD SUCC 40 MG/ML IVP (11:48)
[2024-03-05] MEDS: [UNRECOGNIZED DRUG - OTHER] IV (12:19)
[2024-03-05] MEDS: INFLIXIMAB IV (12:19)
[2024-03-05] MEDS: TUBING PRIMARY IV (12:19)
[2024-04-13 11:56] VITALS: BP 131/79; PULSE 95; RESP 18; TEMP 36.4; O2SAT 95
[2024-04-13] MEDS: diphenhydrAMINE 25 MG CAPSULE PO (12:12)
[2024-04-13] MEDS: ACETAMINOPHEN 325 MG TABLET 650 MG PO (12:12)
[2024-04-13] MEDS: METHYLPREDNISOLONE SOD SUCC 40 MG/ML IVP (12:21)
[2024-04-13] MEDS: INFLIXIMAB IV (12:55)
[2024-04-13] MEDS: [UNRECOGNIZED DRUG - OTHER] IV (12:55)
[2024-04-13] MEDS: TUBING PRIMARY IV (12:55)
== END 2024-05-18 23:59 | disposition home or self-care (01) ==
LOC: CCIC 11:45
PROVIDERS: PCP Internal Medicine; Referring Provider Internal Medicine; Visit Provider Internal Medicine Gastroenterology
DX: K50.90 Crohn's disease, unspecified, without complications (principal)
CPT/HCPCS: 96375; 96376; 96413; 96415; 97110; 97112; 97535; G0463; A9270; J2919; J7050

== ENCOUNTER 2024-04-28 12:57 | Outpatient (CLI) | payer MEDICARE, BC, SELFPAY ==
[2024-04-28 10:27] VITALS: BMI 35.6
== END 2024-04-28 12:58 | disposition home or self-care (01) ==
LOC: NUTRITION 12:57
PROVIDERS: PCP Internal Medicine; Visit Provider Dietitian, Registered
DX: E66.9 Obesity, unspecified (principal); Z71.3 Dietary counseling and surveillance
CPT/HCPCS: G0463

== ENCOUNTER 2024-05-19 06:33 | Outpatient (CLI) | payer MEDICARE, BC, SELFPAY ==
--- OUTSIDE RECORDS SUMMARY | 2024-05-19 06:36 | XMS_ITS | Encounter Summary ---
Author Organization [facility] Address [address] [place] [address] Care Team Providers Care Smooth Stucco Resurfacer Name Role Phone Elsewhere, Pcp Primary Care Provider Unavailabl e Encounter Details Date Type Department Care Team (Late st Contact Info) Description 03/02/2015 Historical Ophthalmology [facility] OPH Cayetano Chand M.D., Ph.D. [address] [place] [phone] Social History Tobacco Use Types Packs/Day Years Used Date Smoking Tobacco: Never Assessed Comments Unknown Sex and Gender Information Value Date Recorded Sex Assigned at Female 01/09/2022 4:35 PM CDT Legal Sex Female 11:00 AM EXECUTIVE VICE PRESIDENT AND CHIEF FINANCIAL OFFICER Gender Identity Female 01/09/2022 4:35 PM CDT [...] On February 01, 2015, she saw her darkroom technician, Dr. Liu for evaluation of this. She [...] gland dysfunction CDM Reports - EYEGEN Id: [id number] Status: Fnl documented in this encounter Plan of Treatment Upcoming Encounters Date Type Department Care Team (Latest Contact Info) Description 06/21/2024 2:45 PM EXECUTIVE VICE PRESIDENT AND CHIEF FINANCIAL OFFICER Clinical Communication Virtual Review in [place], [place] 200 [place] [phone] 06/22/2024 10:15 AM EXECUTIVE VICE PRESIDENT AND CHIEF FINANCIAL OFFICER Procedure visit Department of Urology in [address] [phone] Caroline Hatfield D.O. [address] [place] [phone] 06/22/2024 11:30 AM EXECUTIVE VICE PRESIDENT AND CHIEF FINANCIAL OFFICER Office Visit Department of Urology in [address] [phone] Caroline Hatfield D.OElvis [address] [place] [phone] 06/22/2024 2:00 PM EXECUTIVE VICE PRESIDENT AND CHIEF FINANCIAL OFFICER Office Visit Department of Dermatology in [address] [phone] Gayle Kaba M.D. [address] [place] [phone] documented as of this encounter Visit Diagnoses Not on filedocumented in this encounter Care Teams Smooth Stucco Resurfacer Relationship Specialty Start Date End Date Elsewhere, Pcp PCP - General Internal Medicine 05/02/23 documented as of this encounter
--- OUTSIDE RECORDS SUMMARY | 2024-05-19 06:36 | XMS_ITS | Clinical Summary ---
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 [...] 68 12/05/2021 1:46 PM CDT Temperature 37.1 C (98.8 F) 09/18/2016 3:20 PM CDT Respiratory Rate 18 06/25/2021 11:15 AM PANTOGRAPH TRANSFERRER Oxygen Saturation 96% 12/05/2021 1:46 PM CDT [...] 1 - PCV) 10/19/2019 COVID-19 vaccine series (2023- season) 2024 07/23/2021, 02/19/2021, 09/07/2020, Additional history exists Influenza for age 65+ 02/22/2024 Colonoscopy through age 75 05/15/2032 05/15/2022, Procedures Procedure Name Priority Date/Time Associated Diagnosis Comments SCAN-COLONOSCOPY 05/15/2022 12:0 0 AM PANTOGRAPH TRANSFERRER SCAN-MAMMOGRAPHY REPORT 03/04/2014 12:00 AM CDT from Last 3 Months or Most Recently Relevant to Health Maintenance Results * SCAN-COLONOSCOPY (05/15/2022 12:00 AM PANTOGRAPH TRANSFERRER) Scanner OTHER * SCAN-MAMMOGRAPHY REPORT (03/04/2014 12:00 AM CDT) Anatomical Region Laterality Modality Other Scanner OTHER from Last 3 Months or Most Recently Relevant to Health Maintenance Care Teams Butadiene Convertor Operator Relationship Specialty Start Date End Date Hansa Doty MD [address] [place] [address] PCP - General Internal Medicine 07/15/16
--- OUTSIDE RECORDS SUMMARY | 2024-05-19 06:36 | XMS_ITS | Encounter Summary ---
Author Organization [facility] Address [address] [place] [address] Care Team Providers Care College Sports Coach Name Role Phone Elsewhere, Pcp Primary Care Provider Unavailabl e Reason for Referral * Outpatient (Routine) - Authorized Specialty Diagnoses / Procedures Referred By Contac t Referred To Contact Diagnoses Urinary Urge Incontinence Infection Urinary Tract Personal History Procedures URO Uroflow Caroline Hatfield D.O. 200 [place] [address] Phone: tel: fax: [facility] Referral ID Status Reason Start Date Expiration Date V isits Requested Visits Authorized [id number] Authorized 03/26/2024 03/26/2025 1 1 * Outpatient (Routine) - Authorized Specialty Diagnoses / Procedures Referred By Contac t Referred To Contact Urology Diagnoses Urinary Urge Incontinence Infection Urinary Tract Personal History Caroline Hatfield D.O. [address] [place] [address] Phone: tel: fax: Caroline Hatfield D.O. 200 [place] [address] Phone: tel: fax: Referral ID Status Reason Start Date Expiration Date V isits Requested Visits Authorized [id number] Authorized 03/26/2024 09/25/2025 1 1 Reason for Visit * Reason Onset Date Comments Follow-up 03/26/2024 Encounter Details Date Type Department Care Team (Late st Contact Info) Description 03/26/2024 Clinical Communication Department of Urology in [place], [place] [address] [place] [address] Caroline Hatfield D.O. [address] [place] [address] Follow-up Social History Tobacco Use Types Packs/Day Years Used Date Smoking Tobacco: Former Cigarettes 0.8 15 0 06/23/1968 - 06/23/1978 Passive Smoke Exposure: Never Smokeless Tobacco: Never Comments:Quit and havent smo ked since. Over 40 yrs as non smoker Alcohol Use Standard Drinks/Week Comments Yes 0 (1 standard drink = 0.6 oz pure alcohol) Occational Beer or Glass of Wine [facility] Answer Date Recorded In the past 12 months has [employer], gas, oil, or water [employer] threatened to shut off services in your [...] week 07/10/2022 How often do you attend [facility] or sikh services? Patient declined 07/10/2022 Do you belong [...] and heating? Not hard at all 07/10/2022 [facility] - [...] your living situation today? I have a [facility] place to live 11/20/2023 Education Answer Date Recorded What is the highest level of school you have completed or the highest degree you have received? Bachelor's degree (e.g., BA, AB, BS) 01/09/2022 Comments No Sex and Gender Information Value Date Recorded Sex Assigned at Female 01/09/2022 4:35 PM CDT Legal Sex Female 11:00 AM PARKING INSPECTOR Gender Identity Female 01/09/2022 4:35 PM CDT Sexual Orientation Straight 01/09/2022 4: 35 PM CDT documented as of this encounter Plan of Treatment Upcoming Encounters Date Type Department Care Team (Latest Contact Info) Description 06/21/2024 2:45 PM PARKING INSPECTOR Clinical Communication Virtual Review in [place], [place] 200 [place] [address] 06/22/2024 10:15 AM PARKING INSPECTOR Procedure visit Department of Urology in [place], [place] [address] [place] [phone] Caroline Hatfield D.O. [address] [place] [phone] 06/22/2024 11:30 AM PARKING INSPECTOR Office Visit Department of Urology in [place], [place] [address] [place] [phone] Caroline Hatfield D.O. [address] [place] [phone] 06/22/2024 2:00 PM PARKING INSPECTOR Office Visit Department of Dermatology in [place], [place] [address] [place] [phone] Gayle Kaba M.D. 200 [place] [address] Scheduled Orders Name Type Priority Associated Diagnoses [...] History documented in this encounter Care Teams College Sports Coach Relationship Specialty Start Date End Date Elsewhere, Pcp PCP - General Internal Medicine 05/02/23 documented as of this encounter
--- OUTSIDE RECORDS SUMMARY | 2024-05-19 06:36 | XMS_ITS | Encounter Summary ---
Author Organization [facility] Address [address] [place] [address] Care Team Providers Care Rental Sales Associate Name Role Phone Elsewhere, Pcp Primary Care Provider Unavailabl e Reason for Visit * Reason Comments Med Refill Encounter Details Date Type Department Care Team (Late st Contact Info) Description 02/16/2024 Refill Department of Urology in [place], [place] [address] [place] [phone] Caroline Hatfield D.O. [address] [place] [phone] Med Refill Social History Tobacco Use Types Packs/Day Years Used Date Smoking Tobacco: Former Cigarettes 0.8 15 0 06/23/1968 - 06/23/1978 Passive Smoke Exposure: Never Smokeless Tobacco: Never Comments:Quit and havent smo ked since. Over 40 yrs as non smoker Alcohol Use Standard Drinks/Week Comments Yes 0 (1 standard drink = 0.6 oz pure alcohol) Occational Beer or Glass of Wine [facility] Utilities Answer Date Recorded In the past 12 months has [facility] [employer], gas, oil, or water [employer] threatened to shut off services in your [...] week 07/10/2022 How often do you attend [facility] or sabianist services? Patient declined 07/10/2022 Do you belong to any clubs o r organizations such as shinto groups, unions, fraternal or [...] and heating? Not hard at all 07/10/2022 [facility] - Occupational [...] your living situation today? I have a [facility] place to live 11/20/2023 Education Answer Date Recorded What is the highest level of school you have completed or the highest degree you have received? Bachelor's degree (e.g., BA, AB, BS) 01/09/2022 Comments No Sex and Gender Information Value Date Recorded Sex Assigned at Female 01/09/2022 4:35 PM CDT Legal Sex Female 11:00 AM ADVANCED PRACTICE PROFESSIONAL Gender Identity Female 01/09/2022 4:35 PM CDT Sexual Orientation Straight 01/09/2022 4: 35 PM CDT documented as of this encounter Plan of Treatment Upcoming Encounters Date Type Department Care Team (Latest Contact Info) Description 06/21/2024 2:45 PM ADVANCED PRACTICE PROFESSIONAL Clinical Communication Virtual Review in [place], [place] 200 [place] [address] 06/22/2024 10:15 AM ADVANCED PRACTICE PROFESSIONAL Procedure visit Department of Urology in [place], [place] [address] [place] [phone] Caroline Hatfield D.O. [address] [place] [phone] 06/22/2024 11:30 AM ADVANCED PRACTICE PROFESSIONAL Office Visit Department of Urology in [place], [place] [address] [place] [phone] Caroline Hatfield D.O. [address] [place] [phone] 06/22/2024 2:00 PM ADVANCED PRACTICE PROFESSIONAL Office Visit Department of Dermatology in [place], [place] [address] [place] [address] Gayle Kaba M.D. [address] [place] [phone] documented as of this encounter Visit Diagnoses Not on filedocumented in this encounter Care Teams Rental Sales Associate Relationship Specialty Start Date End Date Elsewhere, Pcp PCP - General Internal Medicine 05/02/23 documented as of this encounter
--- OUTSIDE RECORDS SUMMARY | 2024-05-19 06:36 | XMS_ITS ---
Author Organization [facility] Address [address] [place] [address] Care Team Providers Care Fraternity House Cook Name Role Phone Unavailable Unavailable Unavailable Surgery Details Not on file Complications Check Surgery Details section. Procedure Estimated Blood Loss Check Surgery Details section. Procedure Findings Check Surgery Details section. Procedure Specimens Taken Check Surgery Details section.
--- OUTSIDE RECORDS SUMMARY | 2024-05-19 06:36 | XMS_ITS | Clinical Summary ---
Author Organization [facility] Address [address] [place] [address] Care Team Providers Care Supervisor Plate Pasting Name Role Phone Elsewhere, Pcp Primary Care Provider Unavailabl e Source Comments Patient records contain information from all sites at [facility]. For routine questions regarding patient records, call [phone] during business hours, M-F 8:00 AM - 5:00 PM Central Time. Record requests for emergency care only can be directed to [phone] at any time.[facility] Allergies Active Allergy Reactions Criticality Noted Date Comments Adalimumab Rash High 02/29/2016 Codeine GI intolerance,Nausea Only,Other (see comments) Low 04/29/2008 Nausea Hydrochlorothiazide Rash High 04/29/2008 Rash Ibuprofen Other (see comments) 08/25/2016 Patient told not to take Sulfa (Sulfonamide Antibiotics) Hives only, no other systemic symptoms Low 10/28/2023 Medications * This document contains information received from the source organization and may not represent a complete record from that organization. hydrocortisone 2.5 % ointmentIndica tions:Dermatit is Asteatotic Xerotic Apply 1 application topically 2 (two) times a day. Apply to rash. 454 g 3 02/09/20 22 Active Additional Information Patient taking differently:1 application. topicalAs needed, Apply to rash., Reported on 04/29/2023 clindamycin (Cleocin T) 1 % lotionIndicati ons:Furunculos is Apply 1 application topically daily. Apply to boil. 60 mL 3 02/09/20 22 Active Additional Information Patient taking differently:1 application. topicalAs needed, Apply to boil., Reported on 04/29/2023 simvastatin (ZOCOR) 40 mg tablet Take 40 mg by mouth daily. 12/15/19 22 Active sertraline (ZOLOFT) 100 mg tablet Take 1 tablet by mouth every morning. 04/17/20 12 Active sertraline (ZOLOFT) 50 mg tablet Take 1 tablet by mouth every morning. 04/17/20 12 Active omeprazole (PriLOSEC) [address] capsule Take 40 mg by mouth daily. 12/15/19 22 Active melatonin 5 mg tablet Take 1 tablet by mouth at bedtime as needed. TAKING 10MG DAILY 01/22/20 13 Active furosemide (LASIX) 20 mg tablet Take 20 mg by mouth daily. 12/15/19 22 Active cholecalcifero l (VITAMIN D3) 125 mcg (5,000 Unit) capsule daily. Active acetaminophen (TYLENOL) 500 mg tablet Take 500 mg by mouth as needed. 09/19/19 17 Active krill oil 500 mg capsule Take by mouth. Acti ve estradioL (ESTRACE) 0.1 mg/g (0.01%) vaginal cream as needed. 05/07/20 Active metroNIDAZOLE (METROCREAM) 0.75 % creamIndicatio ns:Other Rosacea Apply 1 application topically 2 (two) times a day. Apply to face for rosacea. 45 g 3 09/14/19 23 Active Additional Information Patient taking differently:1 application. topicalAs needed, Apply to face for rosacea., Reported on 04/29/2023 lisinopriL (PRINIVIL,ZEST RIL) 40 mg tablet daily. 09/13/19 23 Active acetaminophen (TYLENOL) 500 mg tablet Take 1 tablet (500 mg total) by mouth every 6 (six) hours as needed for pain. 05/02/20 [address] tablet Take 1 tablet (81 mg total) by mouth daily. Please restart 24 hours after your surgery on 05/14/23. 05/14/20 23 Active triamcinolone (KENALOG) 0.1 % creamIndicatio ns:Dermatitis Asteatotic Xerotic Apply 1 application topically 2 (two) times a day as needed for Rash under wet wraps. 454 g 06/19/20 23 Active inFLIXimab (REMICADE) 10 mg/mL injectionIndic ations:Crohn's Disease (HCC) Infuse 10mg/kg every 4-5 weeks. Premedicate with acetaminophen 650 mg PO, diphenhydramine 25 mg PO, and methylprednisolone 40 mg IV. 1 each 11 07/03/19 24 Active vancomycin (VANCOCIN) 125 mg capsule Take 1 capsule (125 mg total) by mouth as directed. After you complete 14 days of 4 times daily; take 1 capsule twice daily x 7 days, 1 capsule once daily x 7 days, 1 capsule every other day x 8 days, then 1 capsule every 3 days x 15 days 30 capsule 10/24/19 24 Active potassium chloride (K-TAB) 20 mEq CR tablet Take 1 tablet (20 mEq total) by mouth 2 (two) times a day with meals. 5 tablet 10/24/19 24 Active oxyBUTYnin (DITROPAN-XL) 5 mg 24 hr tablet Take 1 tablet by mouth daily. 06/25/19 22 Active nystatin (NYSTOP) 100,000 unit/gram powder Apply 1 application topically three times a day* 11/10/19 24 Active miconazole (MICATIN) 2 % powder Apply topically. 06/10/20 23 Active ciprofloxacin (CIPRO) 500 mg tablet TAKE ONE TABLET BY MOUTH TWICE DAILY for 3 days* 10/06/19 24 Active cephalexin (KEFLEX) 500 mg capsule TAKE ONE CAPSULE BY MOUTH THREE TIMES DAILY FOR 10 DAYS* 08/14/19 24 Active vancomycin (VANCOCIN) 125 mg capsule Take 1 capsule (125 mg total) by mouth as directed. To be utilized in conjunction with antibiotic therapy at a dose of 125 mg daily for the full duration of the antibiotic course, plus one additional week 30 capsule 11/21/19 24 Active methenamine (Hiprex) 1 gram tablet Take 1 tablet (1 g total) by mouth 2 (two) times a day. Take with 500 mg vitamin C twice daily 180 tablet 11 02/17/20 24 Active Hospital, Clinic, or Other Facility [...] Disease 11/07/2009 Atherosclerotic Heart Diseas e [facility] [place] Coronary Artery Without Angina Pectoris 07/17/2009 Fatty Liver 07/17/2009 Apnea Sleep Obstructive 05/25/2009 Hypertension Essential Primary 05/25/2009 Encounters Date Type Department Care Team Description 03/26/2024 Clinical Communication Department of Urology in [place], [place] [address] [place] [address] Caroline Hatfield D.O. Follow-up from Last 3 Months Immunizations Name Administration [...] alcohol) Occational Beer or Glass of Wine [employer] Utilities Answer Date Recorded In the past 12 months has th e electric, [employer], oil, or water [employer] threatened to shut off services in your [...] How often do you attend chur or mormon services? Patient declined 07/10/2022 Do you belong [...] and heating? Not hard at all 07/10/2022 [facility] - Occupational Stress [...] your living situation today? I have a [facility] place to live 11/20/2023 Education Answer Date Recorded What is the highest level of school you have completed or the highest degree you have received? Bachelor's degree (e.g., BA, AB, BS) 01/09/2022 Comments No Sex and Gender Information Value Date Recorded Sex Assigned at Female 01/09/2022 4:35 PM CDT Legal Sex Female 11:00 AM DIGITAL STRATEGIST Gender Identity Female 01/09/2022 4:35 PM CDT Sexual Orientation Straight 01/09/2022 4: 35 PM CDT Last Filed Vital Signs Vital Sign Reading Time Taken Comments Blood Pressure 111/69 11/21/2023 1:40 PM CDT Pulse 66 11/21/2023 1:40 PM CDT Temperature 36.7 C (98.1 F) 05/14/2023 12:43 PM DIGITAL STRATEGIST Respiratory Rate 21 05/14/2023 1:35 PM DIGITAL STRATEGIST Oxygen Saturation 91% 05/14/2023 1:35 PM DIGITAL STRATEGIST Inhaled Oxygen Concentration - - Weight 98.3 kg (216 lb 11.4 oz) 11/21/2023 1:40 PM CDT Height 164.8 cm (5' 4.88) 11/21/2023 1:40 PM CD T Body Mass Index 36.19 11/21/2023 1:40 PM CDT Plan of Treatment Upcoming Encounters Date Type Department Care Team (Latest Contact Info) Description 06/21/2024 2:45 PM DIGITAL STRATEGIST Clinical Communication Virtual Review in [place], [place] 200 [place] [address] 06/22/2024 10:15 AM DIGITAL STRATEGIST Procedure visit Department of Urology in [place], [place] [address] [place] [phone] Caroline Hatfield D.O. [address] [place] [phone] 06/22/2024 11:30 AM DIGITAL STRATEGIST Office Visit Department of Urology in [place], [place] [address] [place] [phone] Caroline Hatfield D.O. [address] [place] [phone] 06/22/2024 2:00 PM DIGITAL STRATEGIST Office Visit Department of Dermatology in [place], [place] [address] [place] [phone] Gayle Kaba M.D. [address] [place] [phone] Health Maintenance Due Date Last Done Comments [...] 09/12/2032 09/12/2022, 01/22/2012, 12/17/2011, Additional history exists Cervical/Vaginal Cancer Screening Discontinued 10/23/2015 (Performed elsewhere), 12/20/2013 (Performed elsewhere), 10/05/2010 (Performed elsewhere) Pneumococcal vaccine (65+ years) Completed 12/21/2020, 04/04/2020 Zoster Vaccines Completed 12/11/2022, 08/22, 02/23/2015 RSV vaccine - (32-36 weeks) or 60+ years Completed 07/30/2023 HPV Vaccines Aged Out No longer eligi ble based on patient's age to complete this topic IPV Vaccines Aged Out No longer eligi ble based on patient's age to complete this topic Medical Devices Implanted Type Area General Education Professor Device Identifier Shelf Expiration Date Model / Serial / Lot Hardware E.G. Pins/Screws/Lloyd s Hardware e.g. pins/screws/r ods Scalp Envaeh-Screw 1.5x 4mm - Muñiz [id number] Implanted:Qty: 3 on 04/20/2012 Hardware e.g. pins/screws/r ods [place] Description:Device Manufactu rer - [place].. Device Status Text - [id number]. Nevaeh-Mesh 90x90x.6mm(Gold ) - [place] [id number] Implanted:Qty: 1 on 04/20/2012 Hardware e.g. pins/screws/r ods [place] Description:Device Manufactu rer - [employer].. Device Status Text - [id number]. Knee Implant- 6 Implanted:11/21 (Quantity not on file) Knee Implant Left: Knee Knee Implant- 6 Implanted:11/21 (Quantity not on file) Knee Implant Right: Knee [place] [employer] Richard Fuzzy 1 X 1 - Muñiz [id number] Implanted:Qty: 1 on 04/20/2012 Mesh or Patch [employer] Description:Device Manufactu [employer]. Device Status Text - [id number]-1667. [facility] Data - [id number]. Gen Nrs F15 [id number] - [id number] - [id number] Implanted:Qty: 1 on 05/14/2023 by Caroline Hatfield D.O. at [facility]/[employer] Sacral Nerve Stimulator N/A: Back [employer] 01/22/2024 4101 / [id number] / Kt Piper Luu Str Crv Stylt Snm - [id number] - [id number] Implanted:Qty: 1 on 05/14/2023 by Caroline Hatfield D.O. at [facility]/[employer] Sacral Nerve Stimulator N/A: Back [employer] 10/04/2025 1201 / [id number] / Prgrmr Pt Rem Ctrl Snm - [id number] - [id number] Implanted:Qty: 1 on 05/14/2023 by Caroline Hatfield D.O. at [facility] Sacral Nerve Stimulator N/A: Back [employer] 05/22/2033 2301 / [id number] / Procedures Procedure Name Priority Date/Time Associated Diagnosis Comments CREATININE WITH EGFR, S/P Routine 06/12/2023 9:37 AM DIGITAL STRATEGIST Ileitis Crohn's (HCC) BASIC METABOLIC PANEL, S/P Routine 05/01/2023 2:55 PM DIGITAL STRATEGIST Preanesthetic Medical Exam COLONOSCOPY Routine 05/15/2022 10:57 AM DIGITAL STRATEGIST Crohn's Disease (HCC) Infection Urinary Tract Recurrent BI BREAST SCREENING BILATERAL Routine 03/04/2014 1:57 PM CDT from Last 3 Months or Most Recently Relevant to Health Maintenance Results * Creatinine with Estimated GFR (06/12/2023 9:37 AM DIGITAL STRATEGIST) Creatinine 0.90 0.59 - 1.04 mg/dL 06/12/2023 11:03 AM DIGITAL STRATEGIST DTL Estimated GFR (eGFR) 70 >=60 mL/min/BSA 06/12/2023 11:03 AM DIGITAL STRATEGIST DTL Comment: Estimated GFR calculated using the 2020 CKD_EPI creatinine equation. Blood (Blood, Venous) 06/12/2023 9:37 AM DIGITAL STRATEGIST 06/12/2023 10:22 AM DIGITAL STRATEGIST us Gali Porter M.D. LAB BLOOD ADD-ON Final Resu lt [facility] [address] [place] [address], [place] DTL [facility] [address] [place] [address] * (ABNORMAL) Basic Metabolic Panel (05/01/2023 2:55 PM DIGITAL STRATEGIST) Potassium, S 4.1 3.6 - 5.2 mmol/L 05/01/2023 3:48 PM DIGITAL STRATEGIST DTL Sodium, S 140 135 - 145 mmol/L 05/01/2023 3:48 PM DIGITAL STRATEGIST DTL Chloride, S 104 98 - 107 mmol/L 05/01/2023 3:48 PM DIGITAL STRATEGIST DTL Bicarbonate, S 24 22 - 29 mmol/L 05/01/2023 3:48 PM DIGITAL STRATEGIST DTL Anion Gap 12 7 - 15 05/01/2023 3:48 PM DIGITAL STRATEGIST DTL BUN (Blood Urea Nitrogen), S 15 6 - 21 mg/dL 05/01/2023 3:48 PM DIGITAL STRATEGIST DTL Creatinine 1.14(H) 0.59 - 1.04 mg/dL 05/01/2023 3:48 PM DIGITAL STRATEGIST DTL Estimated GFR (eGFR) 52(L) >=60 mL/min/BSA 05/01/2023 3:48 PM DIGITAL STRATEGIST DTL Comment: Estimated GFR calculated using the 2020 CKD_EPI creatinine equation. Calcium, Total, S 9.1 8.8 - 10.2 mg/dL 05/01/2023 3:48 PM DIGITAL STRATEGIST DTL Glucose, S 137 70 - 140 mg/dL 05/01/2023 3:48 PM DIGITAL STRATEGIST DTL Blood (Blood, Venous) 05/01/2023 2:55 PM DIGITAL STRATEGIST 05/01/2023 3:27 PM DIGITAL STRATEGIST us Benita Barber APRN, C.N.P., M.S.N. LAB BLOOD ADD-ON Final Result [facility] [address] [place] [address], [facility] DTL [facility] [address] [place] [address] * BI Breast Screening Bilateral (03/04/2014 1:57 [...] by: Lizett Pisano MD [id number] 07-Mar-2014 11:02 Narrative 03/07/2014 11:02 AM CDT 04-Mar-2014 13:57:00 Exam: Mammo Screen Bilat Indications: [...] by: Lizett Pisano MD [id number] 07-Mar-2014 11:02 us Historical Provider IMG BI PROCEDURES Final Resu lt from Last 3 Months or Most Recently Relevant to Health Maintenance Insurance MEDICARE [facility] Care Teams Supervisor Plate Pasting Relationship Specialty Start Date End Date Elsewhere, Pcp PCP - General Internal Medicine 05/02/23
--- OUTSIDE RECORDS SUMMARY | 2024-05-19 06:36 | XMS_ITS | Referral Summary ---
Author Organization [facility] Address [address] [place] [address] Care Team Providers Care Charter Representative Name Role Phone Elsewhere, Pcp Primary Care Provider Unavailabl e Source Comments Patient records contain information from all sites at [facility]. For routine questions regarding patient records, call [phone] during business hours, M-F 8:00 AM - 5:00 PM Central Time. Record requests for emergency care only can be directed to [phone] at any time.[facility] Encounters Date Type Department Care Team Description 03/26/2024 Clinical Communication Department of Urology in [place], [place] [address] [place] [address] Caroline Hatfield D.O. Follow-up from Last 3 Months Allergies Active Allergy [...] Take 40 mg by mouth daily. 12/15/19 Active sertraline (ZOLOFT) 100 mg tablet Take 1 tablet by mouth every morning. 04/17/20 12 Active sertraline (ZOLOFT) 50 mg tablet Take 1 tablet by mouth every morning. 04/17/20 12 Active omeprazole (PriLOSEC) [address] capsule Take 40 mg by mouth daily. 12/15/19 Active melatonin 5 mg tablet Take 1 tablet by mouth at bedtime as needed. TAKING 10MG DAILY 01/22/20 13 Active furosemide (LASIX) 20 mg tablet Take 20 mg by mouth daily. 12/15/19 Active cholecalcifero l (VITAMIN D3) 125 mcg [...] face for rosacea. 45 g 3 09/14/19 Active Additional Information Patient taking differently:1 application. topicalAs needed, Apply to face for rosacea., Reported on 04/29/2023 lisinopriL (PRINIVIL,ZEST RIL) 40 mg tablet daily. 09/13/19 Active acetaminophen (TYLENOL) 500 mg tablet Take 1 tablet (500 mg total) by mouth every 6 (six) hours as needed for pain. 05/02/[address] tablet Take [...] Disease 11/07/2009 Atherosclerotic Heart Diseas e Of [place] Coronary Artery Without Angina Pectoris 07/17/2009 Fatty [...] alcohol) Occational Beer or Glass of Wine [facility] [employer] Answer Date Recorded In the past 12 months has [facility] [employer], gas, oil, or water [employer] threatened to shut off services in your [...] How often do you attend chur or yazdanism services? Patient declined 07/10/2022 Do you belong [...] and heating? Not hard at all 07/10/2022 [facility] ional [facility] - Occupational [...] your living situation today? I have a [facility] place to live 11/20/2023 Education Answer Date Recorded What is the highest level of school you have completed or the highest degree you have received? Bachelor's degree (e.g., BA, AB, BS) 01/09/2022 Comments No Sex and Gender Information Value Date Recorded Sex Assigned at Female 01/09/2022 4:35 PM CDT Legal Sex Female 11:00 AM BELT SANDER STONE Gender Identity Female 01/09/2022 4:35 PM CDT Sexual Orientation Straight 01/09/2022 4: 35 PM CDT Last Filed Vital Signs Vital Sign Reading Time Taken Comments Blood Pressure 111/69 11/21/2023 1:40 PM CDT Pulse 66 11/21/2023 1:40 PM CDT Temperature 36.7 C (98.1 F) 05/14/2023 12:43 PM BELT SANDER STONE Respiratory Rate 21 05/14/2023 1:35 PM BELT SANDER STONE Oxygen Saturation 91% 05/14/2023 1:35 PM BELT SANDER STONE Inhaled Oxygen Concentration - - Weight 98.3 kg (216 lb 11.4 oz) 11/21/2023 1:40 PM CDT Height 164.8 cm (5' 4.88) 11/21/2023 1:40 PM CD T Body Mass Index 36.19 11/21/2023 1:40 PM CDT Plan of Treatment Upcoming Encounters Date Type Department Care Team (Latest Contact Info) Description 06/21/2024 2:45 PM BELT SANDER STONE Clinical Communication Virtual Review in [place], [place] [address] [place] [address] 06/22/2024 10:15 AM BELT SANDER STONE Procedure visit Department of Urology in [place], [place] [address] [place] [phone] Caroline Hatfield D.O. [address] [place] [phone] 06/22/2024 11:30 AM BELT SANDER STONE Office Visit Department of Urology in [place], [place] [address] [place] [phone] Caroline Hatfiled D.O. [address] [place] [phone] 06/22/2024 2:00 PM BELT SANDER STONE Office Visit Department of Dermatology in [place], [place] [address] [place] [address] Gayle Kaba M.D. [address] [place] [phone] Medical Devices Implanted Type Area Emergency Medicine Physician Assistant Device Identifier Shelf Expiration Date Model / Serial / Lot Hardware E.G. Pins/Screws/Lloyd s Hardware e.g. pins/screws/r ods Scalp Nevaeh-Screw 1.5x 4mm - Muñiz [id number] Implanted:Qty: 3 on 04/20/2012 Hardware e.g. pins/screws/r ods [place] Description:Device Manufactu rer - [place] [employer].. Device Status Text - [id number]. Nevaeh-Mesh 90x90x.6mm(Gold ) - Muñiz [id number] Implanted:Qty: 1 on 04/20/2012 Hardware e.g. pins/screws/r ods [place] Description:Device Manufactu rer - Nevaeh [employer].. Device Status Text - [id number]. Knee Implant- 6 Implanted:11/21 (Quantity not on file) Knee Implant Left: Knee Knee Implant- 6 Implanted:11/21 (Quantity not on file) Knee Implant Right: Knee [place] Richard Fuzzy 1 X 1 - Muñiz [id number] Implanted:Qty: 1 on 04/20/2012 Mesh or Patch [employer] Description:Device Manufactu rer - [employer]. Device Status Text - [id number]. [facility] Data - [id number]. Gen Nrstm F15 6.9x24l61 - [id number] - [id number] Implanted:Qty: 1 on 05/14/2023 by Caroline Hatfield D.O. at [facility]/[employer] Sacral Nerve Stimulator N/A: Back [employer]onics Modulation [employer] 01/22/2024 4101 / [id number] / Kt Piper Ld Str Crv Stylt Sn - [id number] - [id number] Implanted:Qty: 1 on 05/14/2023 by Caroline Hatfield D.O. at [facility] Sacral Nerve Stimulator N/A: Back Axonics Modulation [employer] 10/04/2025 1201 / [id number] / Prgrmr Pt Rem Ctrl Snm - [id number] - [id number] Implanted:Qty: 1 on 05/14/2023 by Caroline Hatfield D.O. at [facility] Sacral Nerve Stimulator N/A: Back [employer]onics Modulation [employer] 05/22/2033 2301 / [id number] / Procedures Procedure Name Priority Date/Time Associated Diagnosis Comments CREATININE WITH EGFR, S/P Routine 06/12/2023 9:37 AM BELT SANDER STONE Ileitis Crohn's (HCC) BASIC METABOLIC PANEL, S/P Routine 05/01/2023 2:55 PM BELT SANDER STONE Preanesthetic Medical Exam COLONOSCOPY Routine 05/15/2022 10:57 AM BELT SANDER STONE Crohn's Disease (HCC) Infection Urinary Tract Recurrent BI BREAST SCREENING BILATERAL Routine 03/04/2014 1:57 PM CDT from Last 3 Months or Most Recently Relevant to Health Maintenance Results * Creatinine with Estimated GFR (06/12/2023 9:37 AM BELT SANDER STONE) Creatinine 0.90 0.59 - 1.04 mg/dL 06/12/2023 11:03 AM BELT SANDER STONE DTL Estimated GFR (eGFR) 70 >=60 mL/min/BSA 06/12/2023 11:03 AM BELT SANDER STONE DTL Comment: Estimated GFR calculated using the 2020 CKD_EPI creatinine equation. Blood (Blood, Venous) 06/12/2023 9:37 AM BELT SANDER STONE 06/12/2023 10:22 AM BELT SANDER STONE us Gali Porter M.D. LAB BLOOD ADD-ON Final Resu lt [facility] [address] [place] [address], [facility] [address] [place] [address] * (ABNORMAL) Basic Metabolic Panel (05/01/2023 2:55 PM BELT SANDER STONE) Pathologist [facility] Potassium, S 4.1 3.6 - 5.2 mmol/L 05/01/2023 3:48 PM BELT SANDER STONE DTL Sodium, S 140 135 - 145 mmol/L 05/01/2023 3:48 PM BELT SANDER STONE DTL Chloride, S 104 98 - 107 mmol/L 05/01/2023 3:48 PM BELT SANDER STONE DTL Bicarbonate, S 24 22 - 29 mmol/L 05/01/2023 3:48 PM BELT SANDER STONE DTL Anion Gap 12 7 - 15 05/01/2023 3:48 PM BELT SANDER STONE DTL BUN (Blood Urea Nitrogen), S 15 6 - 21 mg/dL 05/01/2023 3:48 PM BELT SANDER STONE DTL Creatinine 1.14(H) 0.59 - 1.04 mg/dL 05/01/2023 3:48 PM BELT SANDER STONE DTL Estimated GFR (eGFR) 52(L) >=60 mL/min/BSA 05/01/2023 3:48 PM BELT SANDER STONE DTL Comment: Estimated GFR calculated using the 2020 CKD_EPI creatinine equation. Calcium, Total, S 9.1 8.8 - 10.2 mg/dL 05/01/2023 3:48 PM BELT SANDER STONE DTL Glucose, S 137 70 - 140 mg/dL 05/01/2023 3:48 PM BELT SANDER STONE DTL Blood (Blood, Venous) 05/01/2023 2:55 PM BELT SANDER STONE 05/01/2023 3:27 PM BELT SANDER STONE us Benita Barber APRN, C.N.P., M.S.N. LAB BLOOD ADD-ON Final Result [facility] [address] [place] [address], [facility] DTL [facility] [address] [place] [address] * BI Breast Screening Bilateral (03/04/2014 1:57 [...] 07-Mar-2014 11:02 Historical Provider IMG BI PROCEDURES Final Resu lt from Last 3 Months or Most Recently Relevant to Health Maintenance Insurance MEDICARE [facility] Care Teams Charter Representative Relationship Specialty Start Date End Date Elsewhere, Pcp PCP - General Internal Medicine 05/02/23
[2024-05-19 09:23] VITALS: BMI 35.4
== END 2024-05-19 06:34 | disposition home or self-care (01) ==
LOC: NUTRITION 06:34
PROVIDERS: PCP Internal Medicine; Visit Provider Dietitian, Registered
DX: E66.9 Obesity, unspecified (principal); Z71.3 Dietary counseling and surveillance
CPT/HCPCS: G0463

== ENCOUNTER 2024-06-09 09:30 | Outpatient (CLI) | payer MEDICARE, BC, SELFPAY | END 2024-06-09 09:31 | disposition home or self-care (01) | LOC: NFLDREF 06-10 05:23 | PROVIDERS: PCP Internal Medicine; Referring Provider Internal Medicine; Visit Provider Internal Medicine | DX: M81.0 Age-related osteoporosis without current pathological fracture (principal); E78.5 Hyperlipidemia, unspecified; R73.03 Prediabetes; E55.9 Vitamin D deficiency, unspecified; I10 Essential (primary) hypertension; E66.9 Obesity, unspecified; Z71.3 Dietary counseling and surveillance | CPT/HCPCS: 80053; 80061; 82306; G0463 ==

== ENCOUNTER 2024-06-09 10:09 | Outpatient (CLI) | payer MEDICARE, BC, SELFPAY ==
[2024-06-09 08:21] VITALS: BMI 35.3
== END 2024-06-09 10:10 | disposition home or self-care (01) ==
LOC: NUTRITION 10:09
PROVIDERS: PCP Internal Medicine; Visit Provider Dietitian, Registered
DX: E66.9 Obesity, unspecified (principal); Z71.3 Dietary counseling and surveillance
CPT/HCPCS: G0463

== ENCOUNTER 2024-06-25 10:30 | Outpatient (RCR) | payer MEDICARE, BC, SELFPAY ==
--- NOTE | 2024-03-17 12:54 | PT.OPEX ---
PT [place] Outpatient Eval PT [facility] Outpatient Eval Start: 03/17/24 11:09 Freq: Status: Active Protocol: Document 03/17/24 11:10 ARR (Rec: 03/17/24 12:53 ARR [id number]) E-signed By Emy Bedolla DPT Physical Therapy Outpatient Evaluation Insurance Information Insurance Name Medicare B Medical Diagnosis N39.0 urinary tract infection, site not specified M62.89 other specified disorders of muscle Treating Diagnosis N39.46 Mixed incontinence ( Urge and stress incontinence) Feeling of incomplete bladder emptying R39.14 Full incontinence of feces ( Fecal incontinence NOS) R15.9 Referring MD Hansa Doty MD ([facility]) Subjective Subjective -Subjective: Pt arriving nearly 15 min late this date. Has had recurrent UTIs and a lot more urinary leakage. Was on antibiotics. Got nerve stimulator. Thought this might help with bladder emptying. Had tests done and found that there was urinary retention. Not emptying fully. Was still getting infections. Was put on medication. Had problems with urgency. Was supposed to look at contacting [facility] for stimulator for some help to see if changing a program will help with emptying. Has had stimulator Spring 2023 ? feels it?s helped overall. Also has bowel issues. Has Chron?s, has had c-diff x 2. Has had explosive stools as well. Is looking for more control of bowel and bladder control. Will be seeing a cutlery grinder at 2pm today ? Seeing [facility]. -Urinary: Has long history of bladder infections in early ?s. Had urethral dilation at that time. After kids didn?t have many problems. Then after that leakage started. Had bladder sling placed ~2007 . Did help for a while. Does know she has a prolapse. Takes precautions to avoid leakage ? urinates more often just in case. If she doesn?t will leak . Frequency of leakage maybe worse, 1x/day. Bladder meds including: Vit C and AZO, anti -biotic prescription Methenamine. Has had some spotting with use of estrogen cream ? not using currently. Feels bleeding may cause a pink tinge. Hesitant --Frequency of leakage: see above --Protection worn: doesn?t like to wear pads due to impact on possible UTIs. Will use small Panti-liner. --Severity of leakage: a dribble or more than that. Once starting leaking hard to stop it --Activity that causes leakage : coughing, squatting down then bending forward --Delay of urination: unable due to leakage that will follow --Urinary urgency (any incontinence): yes --Strain to start or stop urine stream: to empty fully will lean forward or stand/sit . No straining. Unsure if she is emptying fully. --Daytime urination: 5-6x pending level of hydration --Nocturia: night-time leakage on the way to the toilet, 0-2 variable --Hydration: 32 oz when playing pickleball, maybe 60- 70 oz water / 1 cup of coffee (used to cause bowel or bladder cramping) (220#) --Dysuria: occasional belly cramping. --Triggers: pulling car in driveway, hard to get out of car. Trying to hold bladder to delay the urge to go. Getting up from chair to go to the bathroom can increase urge. -Bowel: --Frequency: since C-diff can be variable. Hard to maintain a formed stool. --Vernal chart: Type 4-7 --Constipation: used to be prior to C-diff --Do you feel bowels fully evacuate with BM: --Fecal leakage: not weekly, maybe <5x/month. Had it a lot with C-diff but less. Is mushy stool or liquid. --Fecal urgency: Doesn?t delay will go. Unsure if she could delay the urge to go. --Straining with BM: used to, prior to C-diff. Some pushing not usually. --Do you use pressure with hands to assist with BM: --Flatus incontinence: yeah, feels age related --Do foods increase or decrease symptoms: yes ? will discuss with dietary --Do you take bowel supplements: nothing for bowel --Fiber intake: uncertain -Sexual: not sexually active. Afraid it will cause problems with bladder. -Menstrual history: post- menopause, age 52 yrs ago -: G/P 4/3 vaginal --Length of labor/pushing: unsure --Forceps or vacuum: tried vacuum and forceps per pt report --Tearing or episiotomy: 10# first baby with episiotomy OTHER: --Any chronic yeast infections : no --Chronic UTIs: yes, 2-3x/year but up to 4-5x/year --Vaginal dryness: yes --Medications taken for bladder: see above -Surgical PMHx: cystitis, hysteroscopy, suburethral sling procedure, ACL repair, hypoglossal N stimulator ? didn?t work but it was removed (for sleep Apnea), tubal ligation, TKA bilateral. R wrist fx. 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 She was recommended to try self catheterization is a trial before an option of sacral nerve neuromodulation was considered). Rectocele, pre-diabetes, metabolic syndrome, sleep apnea, Crohn?s disease, arteriosclerotic CV disease, depression -Current exercise: pickleball, walking. -Orthopedic issues: R wrist -Goals: reduce bladder and bowel leakage Objective Other/Pertinent Objective Cast on R wrist. Slight antalgic gait with stooped fwd posture Assessment Assessment/Impression Pt is a 68 y/o female who presents with concerns of urinary incontinence, bowel incontinence, urinary urgency. Signs and symptoms likely indicating / consistent with mixed incontinence. Pt also has significant PMHx for C- diff x 2, suburethral sling, Chron's, sacral neurostim placement, urinary retention. Focus of initial session on subjective gathering due to complex PMHx. Pt also arrived 15 min late to initial session . Next session to focus on objective assessment for internal and external evaluations. Patient is a good candidate for skilled therapy to target deficits described above. Skilled PT intervention is necessary for use of therapeutic exercise manual therapy, neuromuscular re- education, gait training, and therapeutic activity. Functional impairments include difficulty with: urinary leakage, urinary urgency. See appropriate sections of PT eval for complete list of goals and POC. D/C plan and criteria is for pt to achieve the goals as listed below or until max rehab potential is met. Pt was agreeable with plan of care and goals established. Evaluation and internal vaginal PFM assessment/ treatment with patient consent was requested and obtained. Plan of Care Physical Therapy Goals STG (within 6 visits) 1) Pt will demonstrate proper coordination of motor recruitment patterns for PF then TA activation during isometric activation while maintaining diaphragmatic breathing pattern 2)Pt will recall at least 4 strategies to improve pressure management in order to reduce instances of incontinence outside PT sessions 3) Pt will report at least 60% improvement in bladder control since start of therapy to improve health of vaginal tissues 4) Pt will report at least 60% improvement in bowel control since start of therapy to improve confidence for travel LTG (within 12 visits) 1) Pt will demonstrate proper coordination of motor recruitment patterns for PF then TA activation during dynamic UE/LE movements in all postures while maintaining diaphragmatic breathing pattern 2) Pt will report at least 60% improvement in bladder control since start of therapy to improve health of vaginal tissues 3) Pt will report at least 60% improvement in bowel control since start of therapy to improve confidence for travel 4) Pt will report absent bladder leakage during cough, sneeze using the knack maneuver Treatment Plan/Direct Interventions Biofeedback,Gait Training, Joint Mobilization,Manual Therapy,Neuromuscular Re-ed, Self-Care/Home Management, Therapeutic Activities, Therapeutic Exercises Frequency/Duration 1x/wk x 12 visits within 90 days Patient Will Be Discharged From Therapy Skills [facility],Independent w/ HEP Evaluation Billing Untimed Code Treatment Minutes 40 Complexity Moderate Certification Information Initial Certification Date 03/17/24 Ending Certification Date 06/15/24 Provider Signature Required Yes Provider Signature Shows Agreement With POC & Medical Necessity Physician NPI Number Write NPI# Here Physician Comment/Change : Physician Signature & Date Requested Please Sign/Date Here
--- NOTE | 2024-06-25 12:39 | PT.OPDNX ---
PT Orla Outpatient Daily Note PT RUDDY Outpatient Daily Note Start: 03/17/24 11:09 Freq: Status: Active Protocol: Document 06/25/24 10:30 ARR (Rec: 06/25/24 12:38 ARR [id number]) E-signed By Emy Bedolla DPT PT OP Daily Progress Note Visit Information Note Type Daily Note,Recert/Progress Note Visit Number 1 Running Total Visit Number 7 Insurance Information Recert Due Date 06/13/24 Insurance Name Medicare B Insurance Information/Comments EVAL 03/17 POC 1 x 12 Medical Diagnosis N39.0 urinary tract infection, site not specified M62.89 other specified disorders of muscle Treating Diagnosis N39.46 Mixed incontinence ( Urge and stress incontinence) Feeling of incomplete bladder emptying R39.14 Full incontinence of feces ( Fecal incontinence NOS) R15.9 Referring MD Hansa Doty MD ([facility]) Subjective Subjective -Did something with hip/groin since last session, even low back. Does have PT referral for it. Was even getting spasms in low back. Wondering if neurostim had been impacting it. Did discuss with provider. Symptoms got better with pickleball. Feels she needs to work on core -Has been able to control leakage pretty well. When not playing pickleball water is reduced. Can use suppression techniques to get there calmly . -Also had uroflow study done at [place]. PVR was 37 vs over 300 at last assessment. -Leakage 90% better. Home Exercise Home Exercise Comments OTHER: -urge suppression 03/25 -Bladder health 03/25 -Bladder irritants 03/25 -Bladder diary to fill out again 03/25 Access Code: [email or web address] Objective Other/Pertinent Objective INTERNAL EXAMINATION INTRAVAGINAL 04/13/24: -Sensation: intact to touch -Observation: resorption of labia minora, 25% phimosis of clitoris, vaginal dryness. -Perineum:lowered -Cough: nil -Lifting contraction: visible lift -Bulge: nil -Prolapse: posterior wall descent on bearing down to level of hymen Tenderness/pain to palpation/ tone: -Layer 1: ischiocavernosus / bulbospongiousus / superficial transverse perineal on R -Layer 2: DTP, urethrovaginalis on R Strength ( R / C / L): -Power (MMT):2 -Endurance: 5 -Reps: NT -Fast twitch: 6 -Relaxation of PFM after quick contractions: delayed *Poor squeeze strength Other: -Breathing examination: dec?d posterior and lateral ribcage mvmt with inhalation EXTERNAL OBJECTIVE 04/29/24: -Movement screen: -SLS: -Posture: -Hip PROM: -Strength: Other Tests: -Coordination: -Breathing: dec?d posterior and lateral ribcage mvmt with inhalation -Myofascial palpation: Decreased connective tissue mobility with skin rolling at XXX areas -DR: depth and fingers at umbilicus / depth and fingers below umbilicus / depth and fingers above umbilicus Special tests: -SLR: -Hip: JOCELYNE -Flexibility: -SIJ: below SIJ (+/-) -Distraction: -Thigh thrust: -Gaenslen?s: -Compression: -Sacral thrust: Patient Instructed in Risks/Benefits Yes Therapeutic Exercise Therapeutic Exercise Minutes (minutes) 13 Therapeutic Exercise: To Restore Education: Functional Status -POC with review of goals and progress since start of PT -Expectations after longer period of indep mgmt from PT and continued compliance to HEP -Discussed progressions of all exercises in HEP Self Care Management Training Self-Care Activity Minutes (minutes) 40 Self Care Management Training LIFELONG GOALS: ? Sprinkle your water throughout the day vs fluid loading (Sipping not gulping). Try doing 50 oz of water per day consistently (goal of 100 oz). ? With activity (walking, pickleball, etc) sprinkle water throughout activity and be mindful of gulping water after you are done (trying to minimize fluid loading). ? Stopping drinking fluids 2 hours before bed (sips with pills OK) ? Urge suppression ? Make appt / contact with Dr Laguna - consider return to estradiol cream ? check frequency of use (might be daily use 2-3 weeks then reducing, to 2-3x/week) ? Mindfulness of consumption of bladder irritants such as coffee, pop, alcoholic beverages (beverages that can irritate bladder and create more bladder urgency, frequency, leakage). ? Emory bladder irritants with water (sip on water before and after any bladder irritant). ? Continue Probiotics for bowel ? Continue 3 supplements recommended by urologist ? Continue recommendation from dieticians ? Mindfulness of carb and sugar intake ? Bowel movements: o Not rushing to get to bathroom o On toilet: no straining/ pushing, leaning forward with deep breathing. ? Urination: o Not rushing to get to bathroom o On toilet: no straining/ pushing, leaning forward with deep breathing. o Use urge suppression techniques (See handout) Treatment Minutes Timed Code Treatment Minutes 53 Total Treatment Time 53 Billing Units Self-Care Activity Units 3 Therapeutic Exercise Units 1 Assessment/Impression Assessment/Impression Pt had been seen for mixed for 6 visits from 03/17/24 to during this episode of physical therapy. Focus of therapy on bladder and bowel health by reducing bladder irritants, increasing water consumption, and utilizing urge suppression strategies. Interventions including ther exercise, manual therapy, self -care, neuromuscular re- education. At this time maximal therapeutic benefit has not yet been reached and pt would benefit from ongoing therapy. Pt has made significant progress overall with reduced instances of urinary leakage. Pt will be starting PT for her low back/ groin. She will put her PH PT on hold while she works on this more pressing matter. Thus, ongoing visits will be recommended at a frequency of 4 visits within 90 days. Pt is agreeable with this plan. Plan of Care Physical Therapy Goals STG (within 6 visits) 1) Pt will demonstrate proper coordination of motor recruitment patterns for PF then TA activation during isometric activation while maintaining diaphragmatic breathing pattern 2)Pt will recall at least 4 strategies to improve pressure management in order to reduce instances of incontinence outside PT sessions 3) Pt will report at least 60% improvement in bladder control since start of therapy to improve health of vaginal tissues 4) Pt will report at least 60% improvement in bowel control since start of therapy to improve confidence for travel LTG (within 12 visits) 1) Pt will demonstrate proper coordination of motor recruitment patterns for PF then TA activation during dynamic UE/LE movements in all postures while maintaining diaphragmatic breathing pattern 2) Pt will report at least 60% improvement in bladder control since start of therapy to improve health of vaginal tissues 3) Pt will report at least 60% improvement in bowel control since start of therapy to improve confidence for travel 4) Pt will report absent bladder leakage during cough, sneeze using the knack maneuver Daily Plan of Care Comments DC by 09/21 Recertification Information Initial Certification Date 03/17/24 Recertification Start Date 05/14/24 Recertification Due Date 08/12/24 Reasons to Continue Skilled Therapy Pt had been seen for mixed for 6 visits from 03/17/24 to during this episode of physical therapy. Focus of therapy on bladder and bowel health by reducing bladder irritants, increasing water consumption, and utilizing urge suppression strategies. Interventions including ther exercise, manual therapy, self -care, neuromuscular re- education. At this time maximal therapeutic benefit has not yet been reached and pt would benefit from ongoing therapy. Pt has made significant progress overall with reduced instances of urinary leakage. Pt will be starting PT for her low back/ groin. She will put her PH PT on hold while she works on this more pressing matter. Thus, ongoing visits will be recommended at a frequency of 4 visits within 90 days. Pt is agreeable with this plan. Provider Signature Shows Agreement With POC & Medical Necessity Physician Comment/Change Comment or Changes Physician NPI Number #
== END 2024-09-23 10:00 | disposition home or self-care (01) ==
PROVIDERS: PCP Internal Medicine; Visit Provider Internal Medicine
DX: N39.0 Urinary tract infection, site not specified (principal); M62.89 Other specified disorders of muscle; N39.46 Mixed incontinence; R15.9 Full incontinence of feces; R39.14 Feeling of incomplete bladder emptying; Z51.89 Encounter for other specified aftercare
CPT/HCPCS: 97110; 97112; 97162; 97535; G0463

== ENCOUNTER 2024-06-30 10:52 | Outpatient (CLI) | payer MEDICARE, BC, SELFPAY ==
[2024-06-30 13:52] VITALS: BMI 35.6
== END 2024-06-30 10:53 | disposition home or self-care (01) ==
LOC: NUTRITION 10:53
PROVIDERS: PCP Internal Medicine; Visit Provider Dietitian, Registered
DX: E66.9 Obesity, unspecified (principal); Z71.3 Dietary counseling and surveillance
CPT/HCPCS: G0463

== ENCOUNTER 2024-07-12 13:45 | Outpatient (RCR) | payer MEDICARE, BC, SELFPAY ==
--- NOTE | 2024-07-01 14:58 | PT.OPE ---
[facility] [place] [facility] PT [facility] Start: 07/01/24 13:34 Freq: Status: Active Protocol: Document 07/01/24 14:57 CJT (Rec: 07/01/24 14:58 CJT [id number]) E-signed By Efraín Corral PT Physical Therapy Outpatient Evaluation Insurance Information Recert Due Date 09/29/24 Insurance Name Medicare B Medical Diagnosis Hip pain Treating Diagnosis L hip pain Low back pain Referring MD Doty Subjective Preferred Name Brittaney Belen Pt presents with complaints of L hip pain and low back pain on L. Reports hurting her hip while playing pickleball. Denies specific in jury. Thinks she may have stretched too far while playing pickleball. Reports this has been an issue for her for about 1 year now. Tries to stretch first thing in the AM. Describes butterfly stretch, trunk rotations, hooklying piriformis and firgure-4 stretches. Plays pickleball at [employer] in [place]. Likes to play up to 3 hours several days/ week. Has B TKAs (2016). 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 Therapy Limitations/Systems Review Not Limited Objective Other/Pertinent Objective Lumbar ROM Extension - no limitations, no pain Flexion - can reach toes with approx 30 degree bend in knees , no pain, feels a stretch in L low back R/L Side Bend - no limitations R/L Rotation - moderate limitations due to abdominal mass R Hip ROM Flexion - IR/ER - 28/24 Extension - L Hip ROM Flexion - IR/ER - 24/24 Extension - R knee ROM - L knee ROM - R ankle PF/DF(kf)/DF(ke) - L ankle PF/DF(kf)/DF(ke) - R Hip Strength Flexion - /5 MMT Abduction - /5 MMT Adduction - /5 MMT IR - /5 MMT ER - /5 MMT Extension - /5 MMT L Hip Strength Flexion - /5 MMT Abduction - /5 MMT Adduction - /5 MMT IR - /5 MMT ER - /5 MMT Extension - /5 MMT R knee Extension - /5 MMT R Knee Flexion - /5 MMT L knee Extension - /5 MMT L knee Flexion - /5 MMT R ankle DF - /5 MMT L ankle DF - /5 MMT Palpation: pt reports pain/ tenderness with palpation to Gait: Special Testing Slump: SLR: FADIR: JOCELYNE: Marie's: Piriformis: Hamstring: Pelvis: Leg Length (R/L): Assessment Assessment/Impression Brittaney is a very pleasant 68 year old female who presents to our clinic for evaluation and treatment of R hip pain and low back pain. Pts LE strength is actually quite good with some deficits noted (see objective). Pt appears to have muscles strains in L hip adductor and abductor groups. She noted improvement in her pain with performance of today 's exercises. The nature of the pts condition was explained and all questions were answered to the pts satisfaction. Skilled PT services are medically necessary to address deficits and return patient to highest level of function. Recommend physical therapy sessions 1/ week for 2-4 weeks. Pt agrees with this plan. Printout of HEP was given for I completion and pt gives verbal understanding of each exercise . Primary Functional Limitations Walking, plying pickleball Plan of Care Rehabilitation Potential Good Physical Therapy Goals STG - To be completed in 4 weeks: 1. Pt will report reduction in L hip pain by factor of 2 with ambulation so that she may go for short walks for light exercise. LTG - To be completed in 6-8 weeks: 1. Pt to be I with HEP so that they may I manage progression of symptoms. 2. Pt will demo 5/5 MMT for B hip abduction to provide greater support to B hips with activity. 3. Pt will report ability to play pickleball up to 90 minutes without residual hip pain so that she may return to participation in pickleball with community members. Treatment Plan/Direct Interventions Dry Needling,Electrical Stimulation,Gait Training,Heat ,Joint Mobilization,Manual Therapy,Neuromuscular Re-ed, Self-Care/Home Management, Therapeutic Activities, Therapeutic Exercises Frequency/Duration 1/week for 2-4 weeks Patient Will Be Discharged From Therapy Completion of LTG(s),Skills Plateau,Independent w/HEP, Independently Progressing Evaluation Billing Untimed Code Treatment Minutes 40 PT Eval No Charge No Complexity Low Certification Information Initial Certification Date 07/01/24 Ending Certification Date 09/29/24 Provider Signature Required Yes Provider Signature Shows Agreement With POC & Medical Necessity Physician NPI Number Write NPI# Here Physician Comment/Change : Physician Signature & Date Requested Please Sign/Date Here
== END 2024-10-20 07:45 | disposition home or self-care (01) ==
PROVIDERS: PCP Internal Medicine; Visit Provider Internal Medicine
DX: M25.552 Pain in left hip (principal); M54.50 Low back pain, unspecified; Z51.89 Encounter for other specified aftercare
CPT/HCPCS: 97110; 97140; 97161; G0463

== ENCOUNTER 2024-07-29 11:26 | Outpatient (CLI) | payer MEDICARE, BC, SELFPAY ==
[2024-07-29 13:08] VITALS: BMI 35.9
== END 2024-07-29 11:27 | disposition home or self-care (01) ==
LOC: NUTRITION 11:26
PROVIDERS: PCP Internal Medicine; Visit Provider Dietitian, Registered
DX: E66.9 Obesity, unspecified (principal); Z68.36 Body mass index [BMI] 36.0-36.9, adult; Z71.3 Dietary counseling and surveillance
CPT/HCPCS: G0463

== ENCOUNTER 2024-08-16 14:00 | Outpatient (CLI) | payer MEDICARE, BC, SELFPAY ==
[2024-08-16 14:00] VITALS: BMI 35.5
== END 2024-08-16 14:01 | disposition home or self-care (01) ==
LOC: NUTRITION 08-17 13:36
PROVIDERS: PCP Internal Medicine; Visit Provider Dietitian, Registered
DX: E66.9 Obesity, unspecified (principal); Z68.36 Body mass index [BMI] 36.0-36.9, adult; Z71.3 Dietary counseling and surveillance
CPT/HCPCS: G0463

== ENCOUNTER 2024-10-14 11:00 | Outpatient (RCR) | payer MEDICARE, BC, SELFPAY ==
[2024-05-19 11:33] VITALS: BP 108/66; PULSE 65; RESP 16; TEMP 36.1; O2SAT 94
[2024-05-19] MEDS: ACETAMINOPHEN 325 MG TABLET 650 MG PO (12:04)
[2024-05-19] MEDS: diphenhydrAMINE 25 MG CAPSULE PO (12:05)
[2024-05-19] MEDS: METHYLPREDNISOLONE SOD SUCC 40 MG/ML IVP (12:16)
[2024-05-19] MEDS: [UNRECOGNIZED DRUG - OTHER] IV (12:49)
[2024-05-19] MEDS: TUBING PRIMARY IV (12:49)
[2024-05-19] MEDS: INFLIXIMAB IV (12:49)
--- OUTSIDE RECORDS SUMMARY | 2024-06-25 07:20 | XMS_ITS | Clinical Summary ---
Author Organization [facility] Address [place], [place] [address] Care Team Providers Care Document Preparer Microfilming Name Role Phone Hansa Doty MD Primary Care Provider [phone] Allergies Active Allergy Reactions Criticality Noted Date Comments Codeine *Unknown 09/18/2016 Hydrochlorothiazide Rash 09/18/2016 Adalimumab Rash 09/18/2016 Medications aspirin (ASPIRIN EC) 81 mg enteric coated tabletIndication s:Crohn's disease of small intestine without complication (HC),Diarrhea, unspecified type,Periumbilic al abdominal pain Take 1 tablet by mouth once daily with a meal. 0 09/19/19 17 Active Phenol (CASTELLANI PAINT) 1.5 % liqdIndications: Crohn's disease of small intestine without complication (HC),Diarrhea, unspecified type,Periumbilic al abdominal pain Apply topically to affected area(s). 0 09/19/19 17 Active Prednicarbate (DERMATOP) 0.1 % topical creamIndications :Crohn's disease of small intestine without complication (HC),Diarrhea, unspecified type,Periumbilic al abdominal pain Apply topically to affected area(s) 2 times daily. 0 09/19/19 17 Active calcipotriene 0.005% (DOVONEX) 0.005 % creamIndications :Crohn's disease of small intestine without complication (HC),Diarrhea, unspecified type,Periumbilic al abdominal pain Apply topically to affected area(s) 2 times daily. 0 09/19/19 17 Active furosemide (LASIX) 20 mg tabletIndication s:Crohn's disease of small intestine without complication (HC),Diarrhea, unspecified type,Periumbilic al abdominal pain Take 1 tablet by mouth every morning. 0 09/19/19 17 Active lisinopril (PRINIVIL; ZESTRIL) 40 mg tabletIndication s:Crohn's disease of small intestine without complication (HC),Diarrhea, unspecified type,Periumbilic al abdominal pain Take 1 tablet by mouth once daily. 0 09/19/19 17 Active omega-3 acid ethyl esters (LOVAZA) 1 gram capsuleIndicatio ns:Crohn's disease of small intestine without complication (HC),Diarrhea, unspecified type,Periumbilic al abdominal pain Take 2 capsules by mouth 2 times daily. 0 09/19/19 17 Active melatonin 5 mg capsuleIndicatio ns:Crohn's disease of small intestine without complication (HC),Diarrhea, unspecified type,Periumbilic al abdominal pain Take 1 capsule by mouth. 0 09/19/19 17 Active omeprazole (PRILOSEC) 40 mg Delayed-Release capsuleIndicatio ns:Crohn's disease of small intestine without complication (HC),Diarrhea, unspecified type,Periumbilic al abdominal pain Take 1 capsule by mouth once daily. 0 09/19/19 17 Active Prednicarbate (DERMATOP) 0.1 % topical creamIndications :Crohn's disease of small intestine without complication (HC),Diarrhea, unspecified type,Periumbilic al abdominal pain Apply topically to affected area(s) 2 times daily. 0 09/19/19 17 Active inFLIXimab (REMICADE) 100 mg injectionIndicat ions:Crohn's disease of small intestine without complication (HC),Diarrhea, unspecified type,Periumbilic al abdominal pain Inject intravenous one time for 1 dose. 0 09/19/19 17 Active simvastatin (ZOCOR) 40 mg tabletIndication s:Crohn's disease of small intestine without complication (HC),Diarrhea, unspecified type,Periumbilic al abdominal pain Take 1 tablet by mouth at bedtime. 0 09/19/19 17 Active triamcinolone (ARISTOCORT; KENALOG) 0.1 % creamIndications :Crohn's disease of small intestine without complication (HC),Diarrhea, unspecified type,Periumbilic al abdominal pain Apply topically to affected area(s) 3 times daily. 1 Tube 09/19/19 17 Active acetaminophen (TYLENOL EXTRA STRGTH) 500 mg tabletIndication s:Crohn's disease of small intestine without complication (HC),Diarrhea, unspecified type,Periumbilic al abdominal pain Take 1 tablet by mouth every 6 hours if needed. Max acetaminophen dose: 4000mg in 24 hrs. 0 09/19/19 17 Active cyanocobalamin (VITAMIN B-12) 1,000 mcg tabletIndication s:Crohn's disease of small intestine without complication (HC),Diarrhea, unspecified type,Periumbilic al abdominal pain Take 1 tablet by mouth once daily. 0 09/19/19 17 Active Iovz-Qdpcltifs-U hloroxy-Aldiox (ZEASORB) powdIndications: Crohn's disease of small intestine without complication (HC),Diarrhea, unspecified type,Periumbilic al abdominal pain Apply topically to affected area(s). 0 09/19/19 17 Active sertraline (ZOLOFT) 100 mg tabletIndication s:Crohn's disease of small intestine without complication (HC),Diarrhea, unspecified type,Periumbilic al abdominal pain Take 1 tablet by mouth once daily. 0 09/19/19 17 Active sertraline (ZOLOFT) 50 mg tabletIndication s:Crohn's disease of small intestine without complication (HC),Diarrhea, unspecified type,Periumbilic al abdominal pain Take 1 tablet by mouth once daily. 0 09/19/19 17 Active triamcinolone (ARISTOCORT; KENALOG) 0.1 % creamIndications :Psoriasis Apply topically to affected area(s) 3 times daily. 80 g 5 05/20/20 17 Active cholecalciferol (VITAMIN D3) 5,000 unit capsule Daily Active oxybutynin XL (DITROPAN XL) 5 mg CR tabletIndication s:Urinary incontinence, unspecified type Take 1 Tablet (5 mg) by mouth once daily. 30 Tablet 11 06/25/19 22 Active Active Problems Problem Noted Date Diagnosed [...] Paying Living Expenses Not on file 06/23/2021 Comments No Sex and Gender Information Value Date Recorded Sex Assigned at Not on file Legal Sex Female 6:13 AM ANIMAL CRUELTY INVESTIGATION SUPERVISOR Gender Identity Not on file Sexual Orientation Not on file Obstetrics History Last Filed Vital Signs Vital Sign Reading Time Taken Comments Blood Pressure 136/63 12/05/2021 1:46 PM CDT Pulse 68 12/05/2021 1:46 PM CDT Temperature 37.1 C (98.8 F) 09/18/2016 3:20 PM CDT Respiratory Rate 18 06/25/2021 11:15 AM ANIMAL CRUELTY INVESTIGATION SUPERVISOR Oxygen Saturation 96% 12/05/2021 1:46 PM [...] booster 1974 Lipids for age 45-75 10/19/1999 Pneumococcal series for age 50+ (1 of 1 - PCV) 2004 Zoster (shingles) series for age 50+ (1 of 2) 2004 Mammogram for age 45-75 03/04/2015 03/04/2014 BMI (ht and wt on same day) for age 18+ 09/18/2017 09/18/2016 DEXA/DXA scan for age 65+ 10/19/2019 Medicare Wellness for age 65+ 10/19/2019 COVID-19 vaccine series ( season) 2024 07/23/2021, 02/19/2021, 09/07/2020, Additional history exists Influenza for age 65+ 02/22/2024 RSV vaccine for adults or (1 - 1-dose 75+ series) 2029 Colonoscopy through age 75 05/15/2032 05/15/2022, Procedures Procedure Name Priority Date/Time Associated Diagnosis Comments SCAN-COLONOSCOPY 05/15/2022 12:0 0 AM ANIMAL CRUELTY INVESTIGATION SUPERVISOR SCAN-MAMMOGRAPHY REPORT 03/04/2014 12:00 AM CDT from Last 3 Months or Most Recently Relevant to Health Maintenance Results * SCAN-COLONOSCOPY (05/15/2022 12:00 AM ANIMAL CRUELTY INVESTIGATION SUPERVISOR) us Scanner OTHER Final Result * SCAN-MAMMOGRAPHY REPORT (03/04/2014 12:00 AM CDT) Anatomical Region Laterality Modality Other us Scanner OTHER Final Result from Last 3 Months or Most Recently Relevant to Health Maintenance Insurance [facility] MEDICARE [place] ONLY Care Teams Document Preparer Microfilming Relationship Specialty Start Date End Date Hansa Doty MD [address] [place] [phone] PCP - General Internal Medicine 07/15/16
--- OUTSIDE RECORDS SUMMARY | 2024-06-25 07:21 | XMS_ITS | Encounter Summary ---
Author Organization [facility] Address [address] [place] [phone] Care Team Providers Care Ramp Jockey Name Role Phone Elsewhere, Pcp Primary Care Provider Unavailabl e Encounter Details Date Type Department Care Team (Late st Contact Info) Description 03/02/2015 Historical Ophthalmology [facility] Cayetano Chand M.D., Ph.D. [address] [place] [phone] Social History Tobacco Use Types Packs/Day Years Used Date Smoking Tobacco: Never Assessed Comments Unknown Sex and Gender Information Value Date Recorded Sex Assigned at Female 01/09/2022 4:35 PM CDT Legal Sex Female 11:00 AM COMPOUNDING TECHNICIAN Gender Identity Female 01/09/2022 4:35 PM CDT Sexual Orientation Straight 01/09/2022 4: 35 PM CDT documented as of this encounter Progress Notes * Cyaetano Chand M.D., Ph.D. - 03/02/2015 7:27 AM [...] On February 01, 2015, she saw her supervisor chemical, Dr. Liu for evaluation of this. She [...] gland dysfunction CDM Reports - EYEGEN Id: [id number] Status: Fnl documented in this encounter Plan of Treatment Not on file documented as of this encounter Visit Diagnoses Not on filedocumented in this encounter Care Teams Ramp Jockey Relationship Specialty Start Date End Date Elsewhere, Pcp PCP - General Internal Medicine 05/02/23 documented as of this encounter
--- OUTSIDE RECORDS SUMMARY | 2024-06-25 07:21 | XMS_ITS ---
Author Organization [facility] Address [address] [place] [address] Care Team Providers Care Chef Passenger Vessel Name Role Phone Unavailable Unavailable Unavailable Surgery Details Not on file Complications Check Surgery Details section. Procedure Estimated Blood Loss Check Surgery Details section. Procedure Findings Check Surgery Details section. Procedure Specimens Taken Check Surgery Details section.
--- OUTSIDE RECORDS SUMMARY | 2024-06-25 07:21 | XMS_ITS | Encounter Summary ---
Author Organization [facility] Address [address] [place] [id number] Care Team Providers Care Renal Medicine Physician Name Role Phone Elsewhere, Pcp Primary Care Provider Unavailabl e Reason for Visit * Appointment Request (Routine) - Closed Specialty Diagnoses / Procedures Referred By Contflorinda t Referred To Contact Dermatology Diagnoses Dermatitis Referral ID Status Reason Start Date Expiration Date Visits Re quested Visits Authorized [id number] Closed 03/29/2024 03/29/2025 1 1 Encounter Details Date Type Department Care Team (Late st Contact Info) Description 06/22/2024 2:00 PM MOTOR SETTER Office Visit Department of Dermatology in [place], [place] [address] [place] [phone] Gayle Kaba M.D. [address] [place] [phone] Dermatitis (Primary Dx) Discharge Disposition: Home or Self Care Social [...] alcohol) Occational Beer or Glass of Wine [facility] Utilities Answer Date Recorded In the past 12 months has th e electric, gas, oil, or water company threatened [...] week 07/10/2022 How often do you attend [facility] or yazdanism services? Patient declined 07/10/2022 Do you belong to any clubs o r organizations such as baptism groups, unions, fraternal or [...] and heating? Not hard at all 07/10/2022 [facility] of Occupat ional Health - Occupational Stress [...] your living situation today? I have a [facility] place to live 11/20/2023 Education Answer Date Recorded What is the highest level of school you have completed or the highest degree you have received? Bachelor's degree (e.g., BA, AB, BS) 01/09/2022 Comments No Sex and Gender Information Value Date Recorded Sex Assigned at Female 01/09/2022 4:35 PM CDT Legal Sex Female 11:00 AM MOTOR SETTER Gender Identity Female 01/09/2022 4:35 PM CDT Sexual Orientation Straight 01/09/2022 4: 35 PM CDT documented as of this encounter Consult Notes * Abby Lira M.D. - 06/22/2024 2:00 PM CST Correspondence To: Gayle Kaba M.D. Referring provider: No ref. provider found Supervising career consultant, Dr. Gayle Kaba, supervised the visit. 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 provider found on 06/22/24 for the above chief complaint. The patient was last seen in our department September 13, 2022 at which point in time her dermatitis was managed with site appropriate topical steroids. Her dermatitis has been doing well. She has been using Aveeno lotion with much success. Additionally, she has been wearing gloves and moisturization to bed at night if it has found this very helpful.She would like a refill of her clobetasol cream to use on her hands during severe flares REVIEW OF SYSTEMS Denies history of any other rash or lesion MEDICAL/SURGICAL HISTORY Reviewed OBJECTIVE PHYSICAL EXAMINATION General: Well appearing female in no acute distress. Alert and Oriented. Skin: I examined the abdomen, bilateral upper extremities, and bilateral lower extremities Involving the abdomen and anterior lower legs are a few scattered erythematous eczematous papules They are prominent varicosities of the lower legs. ASSESSMENT / PLAN # Dermatitis The patient is pleased with her current regimen of topical steroids. However, given the risk of long-term steroid usage, we suggest that she alternate with Protopic. We will continue to use clobetasol for hand flares. - moisturizing has also been helpful; she is able to do twice a day which I think is very reasonable to continue to help prevent flares. - discussed the following plan: For mild flares on body and for use on face: - Use tacrolimus ointment For moderate flares on body (including breasts): - Use tacrolimus ointment as first-line - If no improvement, transition to triamcinolone 2 times daily for 2 weeks. Discontinue after 2 weeks and transitioned to tacrolimus ointment. For severe flares on hands/feet: - Use clobetasol cream. - You can use this under white cotton gloves at night to help it soak in. Future considerations for phototherapy may be considered if the patient would prefer to transitioned to a more systemic treatment. All questions answered. PATIENT EDUCATION Explained diagnosis and treatment plan; patient/guardian of patient expressed understanding of the content. Cosigned by Gayle Kaba M.D. at 06/24/2024 7:50 AM MOTOR SETTER R SETTER R SETTER R SETTER Associated attestation - Gayle Kaba M.D. - 06/24/2024 7:50 AM MOTOR SETTER I saw and evaluated the patient, participating in the hickman portions of the service. I reviewed the resident/fellow???s note. I agree with the resident/fellow???s findings and plan. documented in this encounter Plan of Treatment Not on file documented as of this encounter Visit Diagnoses Diagnosis Dermatitis- Primary documented in this encounter Care Teams Renal Medicine Physician Relationship Specialty Start Date End Date Elsewhere, Pcp PCP - General Internal Medicine 05/02/23 documented as of this encounter
--- OUTSIDE RECORDS SUMMARY | 2024-06-25 07:21 | XMS_ITS | Referral Summary ---
Author Organization [facility] Address [address] [place] [address] Care Team Providers Care Supervisor Compressed Yeast Name Role Phone Elsewhere, Pcp Primary Care Provider Unavailabl e Source Comments Patient records contain information from all sites at [facility]. For routine questions regarding patient records, call [phone] during business hours, M-F 8:00 AM - 5:00 PM Central Time. Record requests for emergency care only can be directed to [phone] at any time.[facility] Encounters Date Type Department Care Team Description 06/22/2024 2:00 PM COMMERCIAL REAL ESTATE ASSOCIATE Office Visit Department of Dermatology in [place], [place] [address] [place] [phone] Gayle Kaba M.D. Dermatitis (Primary Dx) Discharge Disposition: Home or Self Care 06/22/2024 11:30 AM COMMERCIAL REAL ESTATE ASSOCIATE Office Visit Department of Urology in [place], [place] [address] [place] [address] Caroline Hatfield D.O. Urinary Urge Incontinence; Infection Urinary Tract Personal History 06/22/2024 10:15 AM COMMERCIAL REAL ESTATE ASSOCIATE Procedure visit Department of Urology in [place], [place] [address] [place] [phone] Caroline Hatfield D.O. Anderson, Kelly A Urinary Urge Incontinence; Infection Urinary Tract Personal History 03/26/2024 Clinical Communication Department of Urology in [place], [place] [address] [place] [phone] Caroline Hatfield D.O. Follow-up from Last 3 [...] mg/g (0.01%) vaginal cream as needed. 05/07/20 22 Active metroNIDAZOLE (METROCREAM) 0.75 % creamIndicatio ns:Other [...] Rash under wet wraps. 454 g 06/19/20 Active inFLIXimab (REMICADE) 10 mg/mL injectionIndic ations:Crohn's Disease (HCC) Infuse 10mg/kg every 4-5 weeks. Premedicate with acetaminophen 650 mg PO, diphenhydramine 25 mg PO, and methylprednisolone 40 mg IV. 1 each 07/03/19 24 Active vancomycin (VANCOCIN) 125 mg [...] daily 180 tablet 11 02/17/20 24 Active tacrolimus (Protopic) 0.1 % ointmentIndica tions:Dermatit is Apply 1 Application topically 2 (two) times a day. Apply to bilateral legs and abdomen. 100 g 3 06/22/20 24 Active clobetasoL (Temovate) 0.05 % cream Apply 1 Application topically 2 (two) times a day as needed (Rash) for up to 14 days. Apply to hands during flares. 30 g 06/22/20 24 025 Active Hospital, Clinic, or Other Facility Administered [...] Disease 11/07/2009 Atherosclerotic Heart Diseas e Of [place] Coronary Artery Without Angina Pectoris 07/17/2009 Fatty [...] Occational Beer or Glass of Wine [facility] Utilities Answer Date Recorded In the past 12 months has e [employer], [employer], oil, or water [employer] threatened to shut off services in your [...] week 07/10/2022 How often do you attend [facility] or faith services? Patient declined 07/10/2022 Do you belong to any clubs o r organizations such as mu-ism groups, unions, fraternal or athletic groups, or [...] and heating? Not hard at all 07/10/2022 [facility] - Occupational Stress Questionnaire Answer Date [...] your living situation today? I have a [facility] place to live 11/20/2023 Education Answer Date Recorded What is the highest level of school you have completed or the highest degree you have received? Bachelor's degree (e.g., BA, AB, BS) 01/09/2022 Comments No Sex and Gender Information Value Date Recorded Sex Assigned at Female 01/09/2022 4:35 PM CDT Legal Sex Female 11:00 AM COMMERCIAL REAL ESTATE ASSOCIATE Gender Identity Female 01/09/2022 4:35 PM CDT Sexual Orientation Straight 01/09/2022 4: 35 PM CDT Last Filed Vital Signs Vital Sign Reading Time Taken Comments Blood Pressure 111/69 11/21/2023 1:40 PM CDT Pulse 66 11/21/2023 1:40 PM CDT Temperature 36.7 C (98.1 F) 05/14/2023 12:43 PM COMMERCIAL REAL ESTATE ASSOCIATE Respiratory Rate 21 05/14/2023 1:35 PM COMMERCIAL REAL ESTATE ASSOCIATE Oxygen Saturation 91% 05/14/2023 1:35 PM COMMERCIAL REAL ESTATE ASSOCIATE Inhaled Oxygen Concentration - - Weight 98.3 kg (216 lb 11.4 oz) 11/21/2023 1:40 PM CDT Height 164.8 cm (5' 4.88) 11/21/2023 1:40 PM CD T Body Mass Index 36.19 11/21/2023 1:40 PM CDT Plan of Treatment Not on file Medical Devices Implanted Type Area Accounting Teacher Device Identifier Shelf Expiration Date Model / Serial / Lot Hardware E.G. Pins/Screws/Lloyd s Hardware e.g. pins/screws/r ods Scalp Nevaeh-Screw 1.5x 4mm - [id number] Implanted:Qty: 3 on 04/20/2012 Hardware e.g. pins/screws/r ods Nevaeh Description:Device Manufactu rer - [employer].. Device Status Text - [id number]. Nevaeh-Mesh 90x90x.6mm(Gold ) - Muñiz [id number] Implanted:Qty: 1 on 04/20/2012 Hardware e.g. pins/screws/r ods Nevaeh Description:Device Manufactu rer - [employer].. Device Status Text - [id number]. Knee Implant- 6 Implanted:11/21 (Quantity not on file) Knee Implant Left: Knee Knee Implant- 6 Implanted:11/21 (Quantity not on file) Knee Implant Right: Knee [place] Ricahrd Fuzzy 1 X 1 - Muñiz [id number] Implanted:Qty: 1 on 04/20/2012 Mesh or Patch Designqwest Platforms Description:Device Manufactu rer - [employer]. Device Status Text - [id number]-1667. [facility] Data - [id number]. Gen Nrstm F15 6.3j78n11 - [id number] - [id number] Implanted:Qty: 1 on 05/14/2023 by Caroline Hatfield D.O. at [facility] Nguyen/Cegal Sacral Nerve Stimulator N/A: Back [employer]on[employer]ase [employer] 01/22/2024 4101 / [id number] / Kt Piper Ld Str Crv Stylt Snm - [id number] - [id number] Implanted:Qty: 1 on 05/14/2023 by Caroline Hatfield D.O. at [facility] [employer]/Spot Influencea Sacral Nerve Stimulator N/A: Back AxonCorporate[employer] Inc 10/04/2025 1201 / [id number] / Prgrmr Pt Rem Ctrl Snm - [id number] - [id number] Implanted:Qty: 1 on 05/14/2023 by Caroline Hatfield D.O. at [facility] Nguyen/Cegal Sacral Nerve Stimulator N/A: Back [employer] Inc 05/22/2033 2301 / [id number] / Procedures Procedure Name Priority Date/Time Associated Diagnosis Comments URO UROFLOW Routine 06/22/2024 10:15 AM COMMERCIAL REAL ESTATE ASSOCIATE Urinary Urge Incontinence Infection Urinary Tract Personal History CREATININE WITH EGFR, S/P Routine 06/12/2023 9:37 AM COMMERCIAL REAL ESTATE ASSOCIATE Ileitis Crohn's (HCC) BASIC METABOLIC PANEL, S/P Routine 05/01/2023 2:55 PM COMMERCIAL REAL ESTATE ASSOCIATE Preanesthetic Medical Exam COLONOSCOPY Routine 05/15/2022 10:57 AM COMMERCIAL REAL ESTATE ASSOCIATE Crohn's Disease (HCC) Infection Urinary Tract Recurrent BI BREAST SCREENING BILATERAL Routine 03/04/2014 1:57 PM CDT from Last 3 Months or Most Recently Relevant to Health Maintenance Results * URO Uroflow (06/22/2024 10:15 AM COMMERCIAL REAL ESTATE ASSOCIATE) Narrative Iván Gamboa M.D. - 06/22/2024 10:15 AM COMMERCIAL REAL ESTATE ASSOCIATE Iván Gamboa M.D. 06/24/2024 8:41 AM REASON FOR VISIT: Uroflow: The patient here for a complex uroflow via calibrated electronic equipment and a residual urine check by ultrasound. FINDINGS: Peak flow 20 ml/sec Average flow 10 ml/sec Total voided volume 314 mls Residual urine 37 ml by ultrasound Detrusor flow pattern IMPRESSION: Normal voided volume with good Q max and low postvoid residual. us Caroline Hatfield D.O. UROLOGY ORDERABLES Final Re sult * Creatinine with Estimated GFR (06/12/2023 9:37 AM COMMERCIAL REAL ESTATE ASSOCIATE) Creatinine 0.90 0.59 - 1.04 mg/dL 06/12/2023 11:03 AM COMMERCIAL REAL ESTATE ASSOCIATE DTL Estimated GFR (eGFR) 70 >=60 mL/min/BSA 06/12/2023 11:03 AM COMMERCIAL REAL ESTATE ASSOCIATE DTL Comment: Estimated GFR calculated using the 2020 CKD_EPI creatinine equation. Blood (Blood, Venous) 06/12/2023 9:37 AM COMMERCIAL REAL ESTATE ASSOCIATE 06/12/2023 10:22 AM COMMERCIAL REAL ESTATE ASSOCIATE Gali Porter M.D. LAB BLOOD ADD-ON Final Resu lt [facility] [address] [place] [address], [facility] DTL [facility] [address] [place] [address] * (ABNORMAL) Basic Metabolic Panel (05/01/2023 2:55 PM COMMERCIAL REAL ESTATE ASSOCIATE) Potassium, S 4.1 3.6 - 5.2 mmol/L 05/01/2023 3:48 PM COMMERCIAL REAL ESTATE ASSOCIATE DTL Sodium, S 140 135 - 145 mmol/L 05/01/2023 3:48 PM COMMERCIAL REAL ESTATE ASSOCIATE DTL Chloride, S 104 98 - 107 mmol/L 05/01/2023 3:48 PM COMMERCIAL REAL ESTATE ASSOCIATE DTL Bicarbonate, S 24 22 - 29 mmol/L 05/01/2023 3:48 PM COMMERCIAL REAL ESTATE ASSOCIATE DTL Anion Gap 12 7 - 15 05/01/2023 3:48 PM COMMERCIAL REAL ESTATE ASSOCIATE DTL BUN (Blood Urea Nitrogen), S 15 6 - 21 mg/dL 05/01/2023 3:48 PM COMMERCIAL REAL ESTATE ASSOCIATE DTL Creatinine 1.14(H) 0.59 - 1.04 mg/dL 05/01/2023 3:48 PM COMMERCIAL REAL ESTATE ASSOCIATE DTL Estimated GFR (eGFR) 52(L) >=60 mL/min/BSA 05/01/2023 3:48 PM COMMERCIAL REAL ESTATE ASSOCIATE DTL Comment: Estimated GFR calculated using the 2020 CKD_EPI creatinine equation. Calcium, Total, S 9.1 8.8 - 10.2 mg/dL 05/01/2023 3:48 PM COMMERCIAL REAL ESTATE ASSOCIATE DTL Glucose, S 137 70 - 140 mg/dL 05/01/2023 3:48 PM COMMERCIAL REAL ESTATE ASSOCIATE DTL Blood (Blood, Venous) 05/01/2023 2:55 PM COMMERCIAL REAL ESTATE ASSOCIATE 05/01/2023 3:27 PM COMMERCIAL REAL ESTATE ASSOCIATE us Benita Barber APRN C.N.P., M.S.N. LAB BLOOD ADD-ON Final Result [address] [address], [facility] [place] [address] * BI Breast Screening Bilateral (03/04/2014 1:57 [...] Most Recently Relevant [place] [address] MEDICARE [email or web address]] T[place]HA [place]ATS [id number] Care Teams Supervisor Compressed Yeast Relationship Specialty Start Date End Date Elsewhere, Pcp PCP - General Internal Medicine 05/02/23
--- OUTSIDE RECORDS SUMMARY | 2024-06-25 07:21 | XMS_ITS | Clinical Summary ---
Author Organization [facility] Address [address] [place] [phone] Care Team Providers Care Bolt Maker Name Role Phone Elsewhere, Pcp Primary Care Provider Unavailabl e Source Comments Patient records contain information from all sites at [facility]. For routine questions regarding patient records, call [phone] during business hours, M-F 8:00 AM - 5:00 PM Central Time. 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 Dermatitis (Primary Dx) Discharge Disposition: Home or Self Care 06/22/2024 11:30 AM ETHNOARCHAEOLOGY PROFESSOR Office Visit Department of Urology in [place], [place] [address] [place] [phone] Caroline Hatfield D.O. Urinary Urge Incontinence; Infection Urinary Tract Personal History 06/22/2024 10:15 AM ETHNOARCHAEOLOGY PROFESSOR Procedure visit Department of Urology in [place], [place] [address] [place] [phone] Caroline Hatfield D.O. Avril Nunez Urinary Urge Incontinence; Infection Urinary Tract Personal History 03/26/2024 Clinical Communication Department of Urology in [place], [place] [address] [place] [address] Caroline Hatfield D.O. Follow-up from Last 3 [...] alcohol) Occational Beer or Glass of Wine TriplePulse Answer Date Recorded In the past 12 months has [facility] [email or web address], gas, oil, or water [employer] threatened to shut off services in your [...] often do you attend chur ch or voodoo services? Patient declined 07/10/2022 Do you belong to any clubs o r organizations such as yarsani groups, unions, fraternal or [...] your living situation today? I have a [facility] place to live 11/20/2023 Education Answer Date Recorded What is the highest level of school you have completed or the highest degree you have received? Bachelor's degree (e.g., BA, AB, BS) 01/09/2022 Comments No Sex and Gender Information Value Date Recorded Sex Assigned at Female 01/09/2022 4:35 PM CDT Legal Sex Female 11:00 AM ETHNOARCHAEOLOGY PROFESSOR Gender Identity Female 01/09/2022 4:35 PM CDT Sexual Orientation Straight 01/09/2022 4: 35 PM CDT Last Filed Vital Signs Vital Sign Reading Time Taken Comments Blood Pressure 111/69 11/21/2023 1:40 PM CDT Pulse 66 11/21/2023 1:40 PM CDT Temperature 36.7 C (98.1 F) 05/14/2023 12:43 PM ETHNOARCHAEOLOGY PROFESSOR Respiratory Rate 21 05/14/2023 1:35 PM ETHNOARCHAEOLOGY PROFESSOR Oxygen Saturation 91% 05/14/2023 1:35 PM ETHNOARCHAEOLOGY PROFESSOR Inhaled Oxygen Concentration - - Weight 98.3 kg (216 lb 11.4 oz) 11/21/2023 1:40 PM CDT Height 164.8 cm (5' 4.88) 11/21/2023 1:40 PM CD T Body Mass Index 36.19 11/21/2023 1:40 PM CDT Plan of Treatment Health Maintenance Due Date Last Done Comments Bone Density Scan (Osteoporosis Screen) 1954 CT Colonography 1954 Cologuard 1954 Hepatitis C Screening 1954 Lipid (Cholesterol) Screening 1954 Mammogram 03/23/2016 03/23/2015 (Perf ormed elsewhere), 03/04/2014, 01/14/2013, Additional history exists COVID-19 Vaccine ( season) 2024 04/03/2023, 12/11/2022, 04/17/2022, Additional history exists Influenza Vaccine (#1) 2024 , 04/17/2022, 04/11/2021, Additional history exists Potassium Level 05/01/2024 05/01/2023, 01/22, 08/27/2019, Additional history exists Sodium Level 05/01/2024 05/01/2023, 01/22, 08/27/2019, Additional history exists Creatinine Level (Kidney Function Test) 06/12/2024 06/12/2023, 05/01/2023, 05/14/2022, Additional history exists Depression Screening (Annual PHQ-2) 06/23/2024 Fall Risk Screen (Annual) 06/23/2024 Office Visit for Blood Pressure Check / [...] (Performed elsewhere), 10/05/2010 (Performed elsewhere) Pneumococcal vaccine (50+ years) Completed 12/21/2020, 04/04/2020 Zoster Vaccines Completed 12/11/2022, 08/22, 02/23/2015 RSV vaccine - (32-36 weeks) or 60+ years Completed 07/30/2023 HPV Vaccines Aged Out No longer eligi ble based on patient's age to complete this topic IPV Vaccines Aged Out No longer eligi ble based on patient's age to complete this topic Medical Devices Implanted Type Area Director University Device Identifier Shelf Expiration Date Model / Serial / Lot Hardware E.G. Pins/Screws/Lloyd s Hardware e.g. pins/screws/r ods Scalp [place]-Screw 1.5x 4mm - [id number] [id number] Implanted:Qty: 3 on 04/20/2012 Hardware e.g. pins/screws/r ods Nevaeh Description:Device Manufactu rer - Nevaeh Innov[employer].. Device Status Text - [id number]. Nevaeh-Mesh 90x90x.6mm(Gold ) - [id number] [id number] Implanted:Qty: 1 on 04/20/2012 Hardware e.g. pins/screws/r ods [place] Description:Device Manufactu rer - [employer].. Device Status Text - [id number]. Knee Implant- 6 Implanted:11/21 (Quantity not on file) Knee Implant Left: Knee Knee Implant- 6 Implanted:11/21 (Quantity not on file) Knee Implant Right: Knee [place] Richard Fuzzy 1 X 1 - Muñiz [id number] Implanted:Qty: 1 on 04/20/2012 Mesh or Patch Writer's Bloq Description:Device Manufactu Backspaces. Device Status Text - MESHPATCH-1667. [facility] Data - [id number]. Gen Nrs F15 [id number] - [id number] - [id number] Implanted:Qty: 1 on 05/14/2023 by Caroline Hatfield D.O. at [facility] Nguyen/OneMedNeta Sacral Nerve Stimulator N/A: Back Axonics [employer] 01/22/2024 4101 / [id number] / Kt Piper Jus Str Crv [facility] - [id number] - [id number] Implanted:Qty: 1 on 05/14/2023 by Caroline Hatfield D.O. at [facility] Nguyen/OneMedNeta Sacral Nerve Stimulator N/A: Back Axonics [employer] Inc 10/04/2025 1201 / [id number] / Prgrmr Pt Rem Ctrl Snm - [id number] - [id number] Implanted:Qty: 1 on 05/14/2023 by Caroline Hatfield D.O. at [facility] Sacral Nerve Stimulator N/A: Back Axonics Unigo 05/22/2033 2301 / [id number] / Procedures Procedure Name Priority Date/Time Associated Diagnosis Comments URO UROFLOW Routine 06/22/2024 10:15 AM ETHNOARCHAEOLOGY PROFESSOR Urinary Urge Incontinence Infection Urinary Tract Personal History CREATININE WITH EGFR, S/P Routine 06/12/2023 9:37 AM ETHNOARCHAEOLOGY PROFESSOR Ileitis Crohn's (HCC) BASIC METABOLIC PANEL, S/P Routine 05/01/2023 2:55 PM ETHNOARCHAEOLOGY PROFESSOR Preanesthetic Medical Exam COLONOSCOPY Routine 05/15/2022 10:57 AM ETHNOARCHAEOLOGY PROFESSOR Crohn's Disease (HCC) Infection Urinary Tract Recurrent BI BREAST SCREENING BILATERAL Routine 03/04/2014 1:57 PM CDT from Last 3 Months or Most Recently Relevant to Health Maintenance Results * URO Uroflow (06/22/2024 10:15 AM ETHNOARCHAEOLOGY PROFESSOR) Narrative Iván Gamboa M.D. - 06/22/2024 10:15 AM ETHNOARCHAEOLOGY PROFESSOR Iván Gamboa M.D. 06/24/2024 8:41 AM REASON [...] Creatinine with Estimated GFR (06/12/2023 9:37 AM ETHNOARCHAEOLOGY PROFESSOR) Creatinine 0.90 0.59 - 1.04 mg/dL 06/12/2023 11:03 AM ETHNOARCHAEOLOGY PROFESSOR DTL Estimated GFR (eGFR) 70 >=60 mL/min/BSA 06/12/2023 11:03 AM ETHNOARCHAEOLOGY PROFESSOR DTL Comment: Estimated GFR calculated using the 2020 CKD_EPI creatinine equation. Blood (Blood, Venous) 06/12/2023 9:37 AM ETHNOARCHAEOLOGY PROFESSOR 06/12/2023 10:22 AM ETHNOARCHAEOLOGY PROFESSOR us Gali Porter M.D. LAB BLOOD ADD-ON Final Resu lt [facility] [address] [place] [address], [facility] DTL [facility] [address] [place] [address] * (ABNORMAL) Basic Metabolic Panel (05/01/2023 2:55 PM ETHNOARCHAEOLOGY PROFESSOR) Potassium, S 4.1 3.6 - 5.2 mmol/L 05/01/2023 3:48 PM ETHNOARCHAEOLOGY PROFESSOR DTL Sodium, S 140 135 - 145 mmol/L 05/01/2023 3:48 PM ETHNOARCHAEOLOGY PROFESSOR DTL Chloride, S 104 98 - 107 mmol/L 05/01/2023 3:48 PM ETHNOARCHAEOLOGY PROFESSOR DTL Bicarbonate, S 24 22 - 29 mmol/L 05/01/2023 3:48 PM ETHNOARCHAEOLOGY PROFESSOR DTL Anion Gap 12 7 - 15 05/01/2023 3:48 PM ETHNOARCHAEOLOGY PROFESSOR DTL BUN (Blood Urea Nitrogen), S 15 6 - 21 mg/dL 05/01/2023 3:48 PM ETHNOARCHAEOLOGY PROFESSOR DTL Creatinine 1.14(H) 0.59 - 1.04 mg/dL 05/01/2023 3:48 PM ETHNOARCHAEOLOGY PROFESSOR DTL Estimated GFR (eGFR) 52(L) >=60 mL/min/BSA 05/01/2023 3:48 PM ETHNOARCHAEOLOGY PROFESSOR DTL Comment: Estimated GFR calculated using the 2020 CKD_EPI creatinine equation. Calcium, Total, S 9.1 8.8 - 10.2 mg/dL 05/01/2023 3:48 PM ETHNOARCHAEOLOGY PROFESSOR DTL Glucose, S 137 70 - 140 mg/dL 05/01/2023 3:48 PM ETHNOARCHAEOLOGY PROFESSOR DTL Blood (Blood, Venous) 05/01/2023 2:55 PM ETHNOARCHAEOLOGY PROFESSOR 05/01/2023 3:27 PM ETHNOARCHAEOLOGY PROFESSOR us Benita Barber APRN, C.N.P., M.S.N. LAB BLOOD ADD-ON Final Result [facility] [address] [place] [address], [place] DTL [facility] [address] [place] [address] * BI Breast Screening Bilateral (03/04/2014 1:57 [...] her of the results. Jesus Pisano M.D. rtf/penirene:03/07/2014 11:00:58 letter sent: 1S/2S - Negative Screen Mammogram BI-RADS: 1 Negative Electronically signed by: Lizett Pisano MD [id number] 07-Mar-2014 11:02 us Historical Provider IMG BI PROCEDURES Final Resu lt from Last 3 Months or Most Recently Relevant to Health Maintenance Insurance MEDICARE [facility] Care Teams Bolt Maker Relationship Specialty Start Date End Date Elsewhere, Pcp PCP - General Internal Medicine 05/02/23
--- OUTSIDE RECORDS SUMMARY | 2024-06-25 07:21 | XMS_ITS | Encounter Summary ---
Author Organization [facility] Address [address] [place] [id number] Care Team Providers Care Engineer Fishing Vessel Name Role Phone Elsewhere, Pcp Primary Care Provider Unavailabl e Reason for Referral * Outpatient (Routine) - Authorized Specialty Diagnoses / Procedures Referred By Contac t Referred To Contact Diagnoses Urinary Urge Incontinence Infection Urinary Tract Personal History Procedures URO Uroflow Taylor Root APRN, C.N.P., D.N.P. [address] [place] [phone] Phone: tel: fax: [facility] Referral ID Status Reason Start Date Expiration Date V isits Requested Visits Authorized [id number] Authorized 06/22/2024 06/22/2025 1 1 PUSHER * Outpatient (Routine) - Authorized Specialty Diagnoses / Procedures Referred By Contac t Referred To Contact Urology Taylor Root APRN, C.N.P., D.N.P. [address] [place] [phone] Phone: tel: fax: Caroline Hatfield D.O. [address] [place] [phone] Phone: tel: fax: Referral ID Status Reason Start Date Expiration Date V isits Requested Visits Authorized [id number] Authorized 06/22/2024 12/22/2025 1 1 PUSHER Reason for Visit * Outpatient (Routine) - Closed Specialty Diagnoses / Procedures Referred By Fidelia t Referred To Contact Urology Diagnoses Urinary Urge Incontinence Infection Urinary Tract Personal History Caroline Hatfield D.O. [address] [place] [phone] Phone: tel: fax: Caroline Hatfield D.O. [address] [place] [phone] Phone: tel: fax: Referral ID Status Reason Start Date Expiration Date Visits Re quested Visits Authorized [id number] Closed 03/26/2024 09/25/2025 1 1 Encounter Details Date Type Department Care Team (Late st Contact Info) Description 06/22/2024 11:30 AM GANG PUSHER Office Visit Department of Urology in [place], [place] [address] [place] [phone] Caroline Hatfield D.O. [address] [place] [phone] Urinary Urge Incontinence; Infection Urinary Tract Personal History Social History Tobacco Use Types Packs/Day Years Used Date Smoking Tobacco: Former Cigarettes 0.8 15 0 06/23/1968 - 06/23/1978 Passive Smoke Exposure: Never Smokeless Tobacco: Never Comments:Quit and havent smo ked since. Over 40 yrs as non smoker Alcohol Use Standard Drinks/Week Comments Yes 0 (1 standard drink = 0.6 oz pure alcohol) Occational Beer or Glass of Wine [facility] Chomp Answer Date Recorded In the past 12 months has e [employer] gas, oil, or water [place] threatened to shut off services in your [...] How often do you attend [facility] or zoroastrianism services? Patient declined 07/10/2022 Do [...] and heating? Not hard at all 07/10/2022 [facility] [place] of Occupat ional Health - Occupational Stress [...] living situation today? I have a [facility] to live 11/20/2023 Education Answer Date Recorded What is the highest level of school you have completed or the highest degree you have received? Bachelor's degree (e.g., BA, AB, BS) 01/09/2022 Comments No Sex and Gender Information Value Date Recorded Sex Assigned at Female 01/09/2022 4:35 PM CDT Legal Sex Female 11:00 AM GANG PUSHER Gender Identity Female 01/09/2022 4:35 PM CDT Sexual Orientation Straight 01/09/2022 4: 35 PM CDT documented as of this encounter Progress Notes * Taylor Root APRN, C.N.P., D.N.P. - 06/22/2024 11:30 AM CST SUBJECTIVE CHIEF COMPLAINT/REASON FOR VISIT History of urinary retention Sacral neuromodulation therapy History of recurrent UTI Patient seen on Dr. Hatfield's calendar HISTORY OF PRESENT ILLNESS Ms. Roland is a 68-year-old female with a history of incomplete bladder emptying and irritative voiding symptoms. Underwent sacral neuromodulation therapy April [address] Hatfield. Uroflow today demonstrates adequate bladder emptying. Denies recurrent urinary tract infections. She has continued with her prevention management including the masses, cranberry supplementation, methenamine, and vitamin-C. She is continuing with pelvic floor physical therapy. Denies bothersome urinary symptoms at this time. She has decreased sacral neuromodulation amplitude to 2 from 3. The following portions of the patient's history were reviewed and updated as appropriate: allergies, current medications, family history, medical history, social history, surgical history, and problem list. REVIEW OF SYSTEMS REVIEW OF SYSTEMS OBJECTIVE ASSESSMENT / PLAN #1 Urinary Urge Incontinence #2 Infection Urinary Tract Personal History #3 s/p sacral neuromodulation I had the pleasure of meeting with Ms. Roland in clinic today. Uroflow demonstrating adequate bladderemptying. Plan to follow-up 1 year with uroflow. She will continue with UTI prevention management. Welcome to take Hiprex holiday at her convenience; she plans to do following her birthday September 2025. Questions addressed. Signed by: Taylor Root APRN, C.N.P., D.N.P. 06/22/2024 12:32 PM GANG PUSHER PUSHER documented in this encounter Plan of Treatment Scheduled Orders Name Type Priority Associated Diagnoses Orde r Schedule URO Uroflow Procedure Routine Urinary Urge Incontinence Infection Urinary Tract Personal History Expected: 06/22/2025, Expires: 09/20/2025 Scheduled Referrals Name Type Priority Associated Diagnoses Orde r Schedule Urology office visit (clinic) Outpatient Referral Routine Expected: 06/22/2025, Expires: 09/20/2025 documented as of this encounter Visit Diagnoses Diagnosis Urinary Urge Incontinence Infection Urinary Tract Personal History documented in this encounter Care Teams Engineer Fishing Vessel Relationship Specialty Start Date End Date Elsewhere, Pcp PCP - General Internal Medicine 05/02/23 documented as of this encounter
--- OUTSIDE RECORDS SUMMARY | 2024-06-25 07:21 | XMS_ITS | Encounter Summary ---
Author Organization [facility] Address [address] [place] [id number] Care Team Providers Care Reed Man Name Role Phone Elsewhere, Pcp Primary Care Provider Unavailabl e Reason for Visit * Reason Comments Urinary Incontinence * Outpatient (Routine) - Closed Specialty Diagnoses / Procedures Referred By Contac t Referred To Contact Diagnoses Urinary Urge Incontinence Infection Urinary Tract Personal History Procedures URO Uroflow Caroline Hatfield D.O. [address] [place] [phone] Phone: tel: fax: [facility] Referral ID Status Reason Start Date Expiration Date Visits Re quested Visits Authorized [id number] Closed 03/26/2024 03/26/2025 1 1 Encounter Details Date Type Department Care Team (Latest Contact Info) Description 06/22/2024 10:15 AM LEAD PRODUCER Procedure visit Department of Urology in [place], [place] [address] [place] [phone] Caroline Hatfield D.O. [address] [place] [phone] Avril Nunez [address] [place] [phone] Urinary Urge Incontinence; Infection Urinary Tract Personal [...] alcohol) Occational Beer or Glass of Wine [facility] Utilities Answer Date Recorded In the past 12 months has e [employer], oil, or water [employer] threatened to shut off services in your [...] How often do you attend chur or church services? Patient declined 07/10/2022 Do you belong to any clubs o r organizations such as alevism groups, unions, fraternal or [...] and heating? Not hard at all 07/10/2022 [facility] [place] of Occupat ional Health - Occupational Stress [...] PM CDT Legal Sex Female 11:00 AM LEAD PRODUCER Gender Identity Female 01/09/2022 4:35 PM CDT Sexual Orientation Straight 01/09/2022 4: 35 PM CDT documented as of this encounter Progress Notes * Avril Nunez - 06/22/2024 10:15 AM CST CHIEF COMPLAINT Patient here for a complex uroflow via calibrated electronic equipment and a residual urine check by ultrasound. IMPRESSION/REPORT/PLAN Caroline Hatfield D.O. ordered the patient to have a complex uroflow with residual urine check via ultrasound. Patient had a moderate urge to void. Uroflow was completed at this time. Patient voided 314 mL's and had a ultrasound residual of 37 mL's. Patient rates pain at 0 on the 0 to 10 pain scalepost procedure. PRODUCER documented in this encounter Procedure Notes * Iván Gamboa M.D. - 06/22/2024 10:15 AM CSTAssociated Order(s): URO UROFLOW REASON FOR VISIT: Uroflow: The patient here for a complex uroflow via calibrated electronic equipment and a residual urine check by ultrasound. FINDINGS: Peak flow 20 ml/sec Average flow 10 ml/sec Total voided volume 314 mls Residual urine 37 ml by ultrasound Detrusor flow pattern IMPRESSION: Normal voided volume with good Q max and low postvoid residual. PRODUCER documented in this encounter Plan of Treatment Not on file documented as of this encounter Procedures Procedure Name Priority Date/Time Associated Diagnosis Comments URO UROFLOW Routine 06/22/2024 10:15 AM LEAD PRODUCER Urinary Urge Incontinence Infection Urinary Tract Personal History documented in this encounter Results * URO Uroflow (06/22/2024 10:15 AM LEAD PRODUCER) Narrative Iván Gamboa M.D. - 06/22/2024 10:15 AM LEAD PRODUCER Iván Gamboa M.D. 06/24/2024 8:41 AM REASON [...] Hatfield D.O. UROLOGY ORDERABLES Final Re sult documented in this encounter Visit Diagnoses Diagnosis Urinary Urge Incontinence Infection Urinary Tract Personal History documented in this encounter Care Teams Reed Man Relationship Specialty Start Date End Date Elsewhere, Pcp PCP - General Internal Medicine 05/02/23 documented as of this encounter
--- OUTSIDE RECORDS SUMMARY | 2024-06-25 07:21 | XMS_ITS | Continuity of Care Document ---
Author Name NwHIN User [email or web address] llowed Address Unknown Organization Unknown Address Unknown Procedures FILTER APPLIED:Only known Procedures with Onset Date within the last 5 years Procedure Date Procedure Provider Additiona l Information Status ASSAY OF SERUM POTASSIUM (32427) Completed ASSAY OF SERUM POTASSIUM (08419) Completed COMPLETE CBC W/AUTO DIFF WBC (41305) Completed URINALYSIS AUTO W/SCOPE (58218) Completed METABOLIC PANEL TOTAL CA (03037) Completed ROUTINE VENIPUNCTURE (29463) Completed EMERGENCY DEPT VISIT MOD MDM (50719) Completed ELECTROCARDIOGRAM TRACING (88769) Completed EMERGENCY DEPT VISIT LOW MDM (46690) Completed MICROBE SUSCEPTIBLE TOSHIA (36336) Completed URINE CULTURE/COLONY COUNT (18752) Completed BREAST TOMOSYNTHESIS BI (52886) Completed SCR MAMMO BI INCL CAD (29609) Completed MICROBE SUSCEPTIBLE TOSHIA (22914) Completed URINE CULTURE/COLONY COUNT (07304) Completed ASSAY OF SERUM POTASSIUM (16143) Completed URINE CULTURE/COLONY COUNT (94954) Completed MICROBE SUSCEPTIBLE TOSHIA (23451) Completed ROUTINE VENIPUNCTURE (25645) Completed DRUG ASSAY INFLIXIMAB (04673) Completed LIPID PANEL (47182) Comp leted COMPREHEN METABOLIC PANEL (77034) Completed URINALYSIS AUTO W/SCOPE (43523) Completed URINE CULTURE/COLONY COUNT (40218) Nov-20-2023 Completed TX/PRO/DX INJ SAME DRUG PHYSICAL THERAPY DIRECTOR (27361) Completed CHEMO IV INFUSION ADDL HR (41361) Completed CHEMO IV INFUSION 1 HR (76666) Completed URINE CULTURE/COLONY COUNT (20009) Completed URINALYSIS AUTO W/SCOPE (14534) Completed URINE CULTURE/COLONY COUNT (27105) Completed MICROBE SUSCEPTIBLE TOSHIA (87260) Completed CHEMO IV INFUSION 1 HR (95366) Completed TX/PRO/DX INJ SAME DRUG PHYSICAL THERAPY DIRECTOR (30287) Completed CHEMO IV INFUSION ADDL HR (96011) Completed Encounters FILTER APPLIED:Only known Encounters with Admission Date within the last 5 years Encounter Location Admission Discharge Billing Code Consultant Dayanara sneed Outpatient Reshma Hussein Outpatient Geeta Doty Outpatient Diya Hatfield Outpatient Diya Hatfield Outpatient Geeta Doty Outpatient Geeta garciaravi Doty Outpatient Geeta gordillo Micheal Outpatient Geeta Doty Outpatient Nasir Casey Outpatient Geeta garciaravi Doty Outpatient Reshma Hussein Emergency Jasvir Mcintyre Outpatient Erich Nguyen Outpatient Geeta Doty
[2024-06-25 12:10] VITALS: BP 116/72; PULSE 71; RESP 16; TEMP 36.5; O2SAT 94
[2024-06-25] MEDS: ACETAMINOPHEN 325 MG TABLET 650 MG PO (12:17)
[2024-06-25] MEDS: diphenhydrAMINE 25 MG CAPSULE PO (12:17)
[2024-06-25 12:18] VITALS: BP 116/72; PULSE 71; RESP 16; TEMP 36.5; O2SAT 94
[2024-06-25] MEDS: METHYLPREDNISOLONE SOD SUCC 40 MG/ML IVP (12:40)
[2024-06-25] MEDS: INFLIXIMAB IV (13:17)
[2024-06-25] MEDS: TUBING PRIMARY IV (13:17)
[2024-06-25] MEDS: [UNRECOGNIZED DRUG - OTHER] IV (13:17)
--- NOTE | 2024-07-22 11:12 | URNOTE ---
Prior authorization is not required for Infliximab ([id number]). Pt has medicare and active BC supplement. Services are based on medical necessity and follow medicare guidelines.
[2024-07-29 10:54] VITALS: BP 138/73; PULSE 73; RESP 17; TEMP 36.4; O2SAT 93
[2024-07-29] MEDS: diphenhydrAMINE 25 MG CAPSULE PO (11:08)
[2024-07-29] MEDS: ACETAMINOPHEN 325 MG TABLET 650 MG PO (11:08)
[2024-07-29] MEDS: METHYLPREDNISOLONE SOD SUCC 40 MG/ML IVP (11:22)
[2024-07-29] MEDS: SODIUM CHLORIDE 0.9 % (FLUSH) 10 ML SYRINGE IVF (11:22)
[2024-07-29] MEDS: [UNRECOGNIZED DRUG - OTHER] IV (12:02)
[2024-07-29] MEDS: TUBING PRIMARY IV (12:02)
[2024-07-29] MEDS: INFLIXIMAB IV (12:02)
[2024-09-03 11:26] VITALS: BP 113/67; PULSE 71; RESP 16; TEMP 36.6; O2SAT 93
--- NOTE | 2024-09-03 14:56 | ONC.NURNOTE ---
Pt here for infliximab. VSS, however, pt states she returned from [place] and now pt has had a scratchy throat, congestion, chills 2 days ago, cough and tired. 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 Pt verbalized understanding of plan of care.
[2024-09-09 12:18] VITALS: BP 127/72; PULSE 61; RESP 16; TEMP 36.3; O2SAT 92
[2024-09-09] MEDS: ACETAMINOPHEN 325 MG TABLET 650 MG PO (12:26)
[2024-09-09] MEDS: diphenhydrAMINE 25 MG CAPSULE PO (12:27)
[2024-09-09] MEDS: SODIUM CHLORIDE 0.9 % (FLUSH) 10 ML SYRINGE IVF (12:31)
[2024-09-09] MEDS: METHYLPREDNISOLONE SOD SUCC 40 MG/ML IVP (12:34)
[2024-09-09] MEDS: [UNRECOGNIZED DRUG - OTHER] IV (12:57)
[2024-09-09] MEDS: INFLIXIMAB IV (12:57)
[2024-09-09] MEDS: TUBING PRIMARY IV (12:57)
[2024-10-14 11:27] VITALS: BP 130/79; PULSE 66; RESP 20; TEMP 35.8; O2SAT 95
[2024-10-14] MEDS: ACETAMINOPHEN 325 MG TABLET 650 MG PO (11:45)
[2024-10-14] MEDS: diphenhydrAMINE 25 MG CAPSULE PO (11:46)
[2024-10-14] MEDS: METHYLPREDNISOLONE SOD SUCC 40 MG/ML IVP (11:56)
[2024-10-14] MEDS: TUBING PRIMARY IV (12:21)
[2024-10-14] MEDS: [UNRECOGNIZED DRUG - OTHER] IV (12:21)
[2024-10-14] MEDS: INFLIXIMAB IV (12:21)
== END 2024-11-15 23:59 | disposition home or self-care (01) ==
LOC: CCIC 11:00
PROVIDERS: PCP Internal Medicine; Visit Provider Clinical Nurse Specialist
DX: K50.90 Crohn's disease, unspecified, without complications (principal)
CPT/HCPCS: 96375; 96376; 96413; 96415; G0463; A9270; J1745; J2919; J7050

== ENCOUNTER 2024-11-18 12:27 | Outpatient (REF) | payer MEDICARE, BC, SELFPAY ==
[2024-11-20 18:40] LABS: Infliximab Antibodies <20 ng/mL
== END 2024-11-18 12:28 | disposition home or self-care (01) ==
LOC: NPINS 12:27
PROVIDERS: PCP Internal Medicine; Visit Provider Internal Medicine
DX: K50.90 Crohn's disease, unspecified, without complications (principal)
CPT/HCPCS: 80230; 96375; 96413; A9270; J1745; J2919; J7050

== ENCOUNTER 2024-12-20 13:03 | Outpatient (CLI) | payer MEDICARE, BC, SELFPAY | END 2024-12-20 13:04 | disposition home or self-care (01) | LOC: NFLDREF 12-22 13:26 | PROVIDERS: PCP Internal Medicine; Referring Provider Internal Medicine; Visit Provider Internal Medicine | DX: R30.0 Dysuria (principal); R35.0 Frequency of micturition | CPT/HCPCS: 87086 ==

== ENCOUNTER 2025-01-07 14:24 | Outpatient (CLI) | payer MEDICARE, BC, SELFPAY | END 2025-01-07 14:25 | disposition home or self-care (01) | LOC: NFLDREF 01-09 23:35 | PROVIDERS: PCP Internal Medicine; Referring Provider Internal Medicine; Visit Provider Nurse Practitioner Family | DX: R39.9 Unspecified symptoms and signs involving the genitourinary system (principal); N39.0 Urinary tract infection, site not specified | CPT/HCPCS: 87086 ==

== ENCOUNTER 2025-01-27 14:50 | Outpatient (CLI) | payer MEDICARE, BC, SELFPAY ==
--- NOTE | 2025-01-27 15:00 | CRLHL7_ITS ---
For Patients: As a result of the Century Cures Act, medical imaging exams and procedure reports are released immediately into your electronic medical record. You may view this report before your referring provider. If you have questions, please contact your health care provider. INDICATION: Postmenopausal bleeding COMPARISON: 02/21/2022 TECHNIQUE: 2D ohara-scale and color Doppler images were acquired of the pelvis using a transabdominal and transvaginal approach. Transvaginal imaging performed to better visualize the endometrial stripe and ovaries. FINDINGS: Sonographic images demonstrate a normal size and smooth outer contour of the uterus. Uterus measures 5.3 cm in length by 4.3 cm in AP diameter by 2.8 cm in transverse dimension. No uterine fibroid. The endometrial lining measures 2 mm in composite thickness. The right ovary measures 1.8 x 0.8 x 0.9 cm in size and the left ovary is obscured by bowel gas. The right ovary demonstrates normal arterial and venous blood flow on color Doppler analysis. There are no suspicious fluid collections within the cul-de-sac. IMPRESSION: Heterogeneity of the uterine echotexture without fibroid. Endometrium measures 2 millimeters without endometrial fluid. Dictated by Zachary Dueñas MD @ 01/28/2025 7:13:15 AM (Electronically Signed)
== END 2025-01-27 14:51 | disposition home or self-care (01) ==
LOC: US 14:51
PROVIDERS: PCP Internal Medicine; Visit Provider Obstetrics & Gynecology
DX: N95.0 Postmenopausal bleeding (principal); R93.89 Abnormal findings on diagnostic imaging of other specified body structures; K50.90 Crohn's disease, unspecified, without complications
CPT/HCPCS: 76830; 76856

== ENCOUNTER 2025-01-31 15:41 | Outpatient (CLI) | payer MEDICARE, BC, SELFPAY | END 2025-01-31 15:42 | disposition home or self-care (01) | LOC: NFLDREF 02-03 15:15 | PROVIDERS: PCP Internal Medicine; Referring Provider Internal Medicine; Visit Provider Internal Medicine | DX: R30.0 Dysuria (principal); N39.0 Urinary tract infection, site not specified | CPT/HCPCS: 87086 ==

== ENCOUNTER 2025-02-08 10:34 | Outpatient (CLI) | payer MEDICARE, BC, SELFPAY ==
--- NOTE | 2025-02-08 10:45 | CRLHL7_ITS ---
For Patients: As a result of the Century Cures Act, medical imaging exams and procedure reports are released immediately into your electronic medical record. You may view this report before your referring provider. If you have questions, please contact your health care provider. INDICATION: BILATERAL SCREENING MAMMOGRAM, ASYMPTOMATIC 69 Y/O FEMALE COMPARISON: 10/15/2023, 08/01/2022, 07/09/2021 TECHNIQUE: Digital mammogram in CC and MLO projections including computer-aided detection (CAD) and tomosynthesis. BREAST COMPOSITION: The breasts are almost entirely fatty. FINDINGS: No suspicious findings. ASSESSMENT: BI-RADS 1 Negative RECOMMENDATION: Annual screening mammogram. A lay language report of this examination will be provided to the patient. Dictated by: Kiara Montiel MD @ 02/08/2025 15:53:57 (Electronically Signed)
== END 2025-02-08 10:35 | disposition home or self-care (01) ==
LOC: MAMMO 10:34
PROVIDERS: PCP Internal Medicine; Visit Provider Internal Medicine
DX: Z12.31 Encounter for screening mammogram for malignant neoplasm of breast (principal)
CPT/HCPCS: 77063; 77067

== ENCOUNTER 2025-02-22 16:03 | Outpatient (CLI) | payer MEDICARE, BC, SELFPAY | END 2025-02-22 16:04 | disposition home or self-care (01) | LOC: NFLDREF 02-23 04:58 | PROVIDERS: PCP Internal Medicine; Referring Provider Internal Medicine; Visit Provider Physician Assistant | DX: N30.00 Acute cystitis without hematuria (principal) | CPT/HCPCS: 87086 ==

== ENCOUNTER 2025-04-05 15:08 | Outpatient (CLI) | payer MEDICARE, BC, SELFPAY | END 2025-04-05 15:09 | disposition home or self-care (01) | LOC: NFLDREF 04-11 20:16 | PROVIDERS: PCP Internal Medicine; Referring Provider Internal Medicine; Visit Provider Internal Medicine | DX: R39.15 Urgency of urination (principal); N30.10 Interstitial cystitis (chronic) without hematuria | CPT/HCPCS: 87086 ==

== ENCOUNTER 2025-05-12 11:00 | Outpatient (RCR) | payer MEDICARE, BC, SELFPAY ==
[2024-11-18 11:41] VITALS: BP 106/65; PULSE 62; RESP 14; TEMP 37; O2SAT 95
[2024-11-18] MEDS: ACETAMINOPHEN 325 MG TABLET 650 MG PO (11:57)
--- NOTE | 2024-12-21 16:01 | ONC.NURNOTE ---
Addendum entered by Sanjuanita Edward RN 12/21/24 16:12: Also of note, pt states that she started an antibiotic on 12/20/2024 for a UTI. She will let the ordering provider know of this as well. Original Note: Pt called today to inquire about scheduling her next infusion on 12/23/2024. RN reviewed chart and it appears that pt was going to call [place] for new orders on 11/19/2023. None were received. RN urged pt to call today and get new orders for Infliximab sent to [facility] as soon as possible. Pt would like her infusion on , 12/23 or Friday, 12/27. When orders are received they will be co-signed by Vivienne Ortega APRN, CNS and then we can schedule pt. Pt requested that she be called when [facility] receives orders. PA done on 07/22/2024.
[2024-12-23 13:13] VITALS: BP 122/63; PULSE 66; TEMP 36.1; O2SAT 95
[2024-12-23] MEDS: ACETAMINOPHEN 325 MG TABLET 650 MG PO (13:54)
[2025-01-27 11:31] VITALS: BP 118/73; PULSE 60; RESP 18; TEMP 36.4; O2SAT 94
[2025-01-27] MEDS: SODIUM CHLORIDE 0.9 % (FLUSH) 10 ML SYRINGE IVF (11:50)
[2025-01-27] MEDS: ACETAMINOPHEN 325 MG TABLET 650 MG PO (11:53)
[2025-03-02 11:21] VITALS: BP 117/62; PULSE 67; RESP 16; TEMP 36.5; O2SAT 94
[2025-03-02] MEDS: SODIUM CHLORIDE 0.9 % (FLUSH) 10 ML SYRINGE IVF (11:54)
[2025-03-02] MEDS: ACETAMINOPHEN 325 MG TABLET 650 MG PO (11:57)
[2025-04-05 11:12] VITALS: BP 120/66; PULSE 77; RESP 16; TEMP 37.1; O2SAT 94
[2025-04-05] MEDS: SODIUM CHLORIDE 0.9 % (FLUSH) 10 ML SYRINGE IVF (11:50)
[2025-04-05] MEDS: ACETAMINOPHEN 325 MG TABLET 650 MG PO (11:52)
[2025-05-12 11:29] VITALS: BP 135/70; PULSE 70; RESP 16; TEMP 36.7; O2SAT 98
[2025-05-12] MEDS: ACETAMINOPHEN 325 MG TABLET 650 MG PO (12:02)
== END 2025-05-17 23:59 | disposition home or self-care (01) ==
LOC: CCIC 11:00
PROVIDERS: PCP Internal Medicine; Referring Provider Internal Medicine; Visit Provider Clinical Nurse Specialist
DX: K50.90 Crohn's disease, unspecified, without complications (principal)
CPT/HCPCS: 76830; 76856; 96361; 96374; 96375; 96413; 96415; A9270; J1745; J2919; J7050

== ENCOUNTER 2025-05-31 10:14 | Outpatient (CLI) | payer MEDICARE, BC, SELFPAY | END 2025-05-31 10:15 | disposition home or self-care (01) | LOC: NFLDREF 06-06 18:25 | PROVIDERS: PCP Internal Medicine; Referring Provider Internal Medicine; Visit Provider Internal Medicine | DX: E78.5 Hyperlipidemia, unspecified (principal); E55.9 Vitamin D deficiency, unspecified | CPT/HCPCS: 80053; 80061; 82306 ==